=== PATIENT | male | born 1950 | race Caucasian/White ===

== ENCOUNTER 2016-10-28 15:04 | Inpatient (IN) | payer OTHER ==
[2016-10-28] MEDS ORDERED: CEFTRIAXONE 1 GM in DEXTROSE 5%-WATER - 50 ML IVPB ONE (16:16)
[2016-10-28] MEDS ORDERED: VANCOMYCIN 500 MG/100 ML PRE-DOCKED IVPB ONE (16:16)
[2016-10-28] MEDS ORDERED: LEVOFLOXACIN 500 MG IVPB 100 ML IVPB ONE ×3 (16:18→23:44)
--- NOTE | 2016-10-28 16:21 | PDOC ---
History of Present Illness - General History Source: Patient, Old Records Exam Limitations: No Limitations <Nadeem Chatman - Last Filed: 10/28/16 18:36> - General History Source: Patient, Old Records Exam Limitations: No Limitations - History of Present Illness Initial Comments: 10/28/16 16:35 The patient is a 66 year old male, with a significant past medical history of HTN, hyperlipidemia, diabetes, COPD (on home O2), CHF, CVA, peripheral vascular disease and obesity, who presents to the emergency department via EMS with increasing erythema and edema of the bilateral lower extremities over the past couple of days. Patient reports that his right leg is worse than the left. The patient additionally admits to some tactile low grade fevers at home but denies any chills, SOB or chest pain. Allergies: Amoxicillin Trihydrate, Potassium Clavulanate. Past Surgical History: Left Fem-Pop Bypass. Social History: Current everyday smoker. PCP: Dr. Liyah Louise <Jeny Carbajal - Last Filed: 10/28/16 21:34> - General Chief Complaint: Edema Stated Complaint: SWOLLEN LEGS/ PAIN Time Seen by Provider: 10/28/16 16:03 Past History - Past Medical History Anemia: No Cardiac Disorders: Yes (CAD) CVA: Yes (no deficit 5years ago.) COPD: Yes (o2 depend home 3l/mnt) Diabetes: Yes GI Disorders: Yes (OBESITY.) Disorders: No HTN: Yes Hypercholesterolemia: Yes Liver Disease: No Thyroid Disease: No - Surgical History Abdominal Surgery: No Appendectomy: No Cardiac Surgery: Yes (LEFT FEM-POP BYPASS) Cholecystectomy: No Lung Surgery: No Neurologic Surgery: No Orthopedic Surgery: No - Immunization History Immunization Up to Date: No - Psycho/Social/Smoking Cessation Hx Anxiety: No Suicidal Ideation: No Smoking Status: Yes Smoking History: Current every day smoker Have you smoked in the past 12 months: Yes Number of Cigarettes Smoked Daily: 5 If you are a former smoker, when did you quit?: 6 months Information on smoking cessation initiated: Yes 'Breaking Loose' booklet given: 10/28/16 Hx Alcohol Use: No Drug/Substance Use Hx: No Substance Use Type: None Hx Substance Use Treatment: No <Nadeem Chatman - Last Filed: 10/28/16 18:36> <Jeny Carbajal - Last Filed: 10/28/16 21:34> - Past Medical History Allergies/Adverse Reactions: Allergies Allergy/AdvReac Type Severity Reaction Status Date / Time amoxicillin trihydrate Allergy Unknown Verified 10/28/16 15:16 [From Augmentin] potassium clavulanate Allergy Unknown Verified 10/28/16 15:16 [From Augmentin] Home Medications: Ambulatory Orders Unobtainable [Unobtainable] 10/28/16 Review of Systems - Review of Systems Able to Perform ROS?: Yes Comments:: 10/28/16 16:35 GENERAL/CONSTITUTIONAL: +Fevers. No chills. No weakness. HEAD, EYES, EARS, NOSE AND THROAT: No change in vision. No ear pain or discharge. No sore throat. CARDIOVASCULAR: No chest pain or shortness of breath. RESPIRATORY: No cough, wheezing, or hemoptysis. GASTROINTESTINAL: No nausea, vomiting, diarrhea or constipation. GENITOURINARY: No dysuria, frequency, or change in urination. MUSCULOSKELETAL: No joint or muscle swelling or pain. No neck or back pain. SKIN: +Swelling and redness to lower extremities, bilaterally. NEUROLOGIC: No headache, vertigo, loss of consciousness, or change in strength/ sensation. ENDOCRINE: No increased thirst. No abnormal weight change. HEMATOLOGIC/LYMPHATIC: No anemia, easy bleeding, or history of blood clots. ALLERGIC/IMMUNOLOGIC: No hives or skin allergy. <Jeny Carbajal - Last Filed: 10/28/16 21:34> *Physical Exam - Vital Signs Last Vital Signs Temp Pulse Resp BP Pulse Ox 97.4 F L 72 20 134/62 98 10/28/16 15:07 10/28/16 15:07 10/28/16 15:07 10/28/16 15:07 10/28/16 16:00 <Nadeem Chatman - Last Filed: 10/28/16 18:36> - Vital Signs Last Vital Signs Temp Pulse Resp BP Pulse Ox 97.4 F L 72 20 134/62 98 10/28/16 15:07 10/28/16 15:07 10/28/16 15:07 10/28/16 15:07 10/28/16 16:00 - Physical Exam Comments: 10/28/16 16:54 GENERAL: Awake, alert, and fully oriented, in no acute distress. HEAD: No signs of trauma. EYES: PERRLA, EOMI, sclera anicteric, conjunctiva clear. ENT: Auricles normal inspection, hearing grossly normal, nares patent, oropharynx clear without exudates. Moist mucosa. NECK: Normal ROM, supple, no lymphadenopathy, JVD, or masses. LUNGS: Breath sounds equal, clear to auscultation bilaterally. No wheezes, and no crackles. HEART: Regular rate and rhythm, normal S1 and S2, no murmurs, rubs or gallops. ABDOMEN: Soft, nontender, normoactive bowel sounds. No guarding, no rebound. No masses. EXTREMITIES: 2+ pitting edema bilaterally. Normal range of motion. No clubbing or cyanosis. No cords. NEUROLOGICAL: Cranial nerves II through XII grossly intact. Normal speech, gait deferred. SKIN: Bilateral lower extremity erythema and tenderness, with some weeping. No induration. Worse on right, erythema on the right extends to the dorsum of the foot. Sensations intact. <Jeny Carbajal - Last Filed: 10/28/16 21:34> Heart Score/ECG Review #1 ECG reviewed & interpreted by me at: 17:00 10/28/16 17:01 NSR 77, left axis deviation, LBBB (negative scarbossa), QTC 491 msec <Nadeem Chatman - Last Filed: 10/28/16 18:36> ED Treatment Course - LABORATORY CBC & Chemistry Diagram: 10/28/16 16:54 10/28/16 16:54 - RADIOLOGY Radiology Studies Ordered: Category Date Time Status CHEST X-RAY PORTABLE* [RAD] Stat Radiology 10/28/16 16:15 Ordered <Nadeem Chatman - Last Filed: 10/28/16 18:36> - LABORATORY CBC & Chemistry Diagram: 10/28/16 16:54 10/28/16 16:54 <Jeny Carbajal - Last Filed: 10/28/16 21:34> Medical Decision Making - Medical Decision Making 10/28/16 16:20 A portion of this note was documented by scribe services under my direction. I have reviewed the details of the note, within reason, and agree with the documentation with the following case summary and management plan written by me. Patient treated in the ED. Nursing notes are reviewed and incorporated into the medical decision-making. Vital signs reviewed. Peripheral IV access obtained by the nurse, laboratory studies are drawn and sent, reviewed and interpreted by myself. Vital Signs Temp Pulse Resp BP Pulse Ox 97.4 F L 72 20 134/62 98 10/28/16 15:07 10/28/16 15:07 10/28/16 15:07 10/28/16 15:07 10/28/16 16:00 66 year old male with past medical history of diabetes, obesity, COPD on home O2 , sleep apnea, hypertension, hyperlipidemia, peripheral vascular disease, anemia , congestive heart failure presents to the emergency department for increasing erythema to the lower extremity is bilaterally, with right worse than left. His got increasingly more painful. Visiting nursing services had noted at home that the redness has worsened and sent the patient to the ER. He reports tactile low- grade temps at home but otherwise denies other symptoms. Denies any chest pain or shortness of breath. The patient's lower extremity extremely erythematous and tender to palpation. Some areas appear to be weeping but there is no obvious areas of ulcerations or abscesses. We'll initiate IV antibiotics and admit the patient to the hospital for further evaluation for cellulitis. 10/28/16 18:36 CBC, BMP 10/28/16 16:54 10/28/16 16:54 CMP Sodium 139 mmol/L (136-145) 10/28/16 16:54 Potassium 4.2 mmol/L (3.5-5.1) 10/28/16 16:54 Chloride 99 mmol/L (98-107) 10/28/16 16:54 Carbon Dioxide 34 mmol/L (21-32) H 10/28/16 16:54 Anion Gap 6 (8-16) L 10/28/16 16:54 BUN 24 mg/dL (7-18) H 10/28/16 16:54 Creatinine 1.4 mg/dL (0.7-1.3) H D 10/28/16 16:54 Creat Clearance w eGFR 50.86 (>60) 10/28/16 16:54 Random Glucose 190 mg/dL (74-106) H D 10/28/16 16:54 Lactic Acid 1.476 mmol/L (0.4-2.0) 10/28/16 16:54 Calcium 7.7 mg/dL (8.5-10.1) L 10/28/16 16:54 Total Bilirubin 0.3 mg/dL (0.2-1.0) 10/28/16 16:54 AST 9 U/L (15-37) L D 10/28/16 16:54 ALT 11 U/L (12-78) L D 10/28/16 16:54 Alkaline Phosphatase 60 U/L (45-117) 10/28/16 16:54 Creatine Kinase 62 IU/L (39-308) 10/28/16 16:54 Troponin I < 0.02 ng/ml (0.00-0.05) 10/28/16 16:54 Total Protein 6.9 g/dl (6.4-8.2) 10/28/16 16:54 Albumin 2.7 g/dl (3.4-5.0) L D 10/28/16 16:54 Urine Test Results Urine Color Yellow 10/28/16 16:54 Urine Appearance Clear 10/28/16 16:54 Urine pH 5.0 (5.0-8.0) 10/28/16 16:54 Ur Specific Tamms 1.016 (1.001-1.035) 10/28/16 16:54 Urine Protein Negative (NEGATIVE) 10/28/16 16:54 Urine Glucose (UA) Negative (NEGATIVE) 10/28/16 16:54 Urine Ketones Negative (NEGATIVE) 10/28/16 16:54 Urine Blood Negative (NEGATIVE) 10/28/16 16:54 Urine Nitrite Negative (NEGATIVE) 10/28/16 16:54 Urine Bilirubin Negative (NEGATIVE) 10/28/16 16:54 Ur Leukocyte Esterase Negative (NEGATIVE) 10/28/16 16:54 Labs reviewed. Acute renal insufficiency noted. Vanc and levaquin ordered. Duplex ordered and pending. Case discussed with Dr. Noemy Valle. She accepts the patient to med/surg admissoin. <Nadeem Chatman - Last Filed: 10/28/16 18:36> - Medical Decision Making 10/28/16 18:39 EXAM: RAD/CHEST X-RAY PORTABLE Reviewed By: Dr. Yusuf Simeon IMPRESSION: Limited examination, as described above without interval change. Called Dr. Noemy Valle at Office at 18:23. Referred to answering service. Dr. Valle returned call at 18:32, case discussed. <Jeny Carbajal - Last Filed: 10/28/16 21:34> *DC/Admit/Observation/Transfer - Discharge Dispostion Admit: Yes <Nadeem Chatman - Last Filed: 10/28/16 18:36> - Attestations Scribe Attestion: 10/28/16 16:22 Documentation prepared by Jeny Carbajal, acting as medical physiologist for Nadeem Chatman MD. <Jeny Carbajal - Last Filed: 10/28/16 21:34> Diagnosis at time of Disposition: THERESA (acute kidney injury), Cellulitis of both lower extremities - Referrals
[2016-10-28] MEDS ORDERED: VANCOMYCIN 1,000 MG in DEXTROSE 5%-WATER - 250 ML IVPB ONE (16:56)
[2016-10-28] MEDS ORDERED: VANCOMYCIN 1 GRAM (PRE-DOCKED) 250 ML IVPB ONE (16:59)
[2016-10-28 17:02] LABS: BASOPHIL 0.8 % (0-2.0); MCH 22.1 pg (25.7-33.7); MCHC 30.3 g/dl (32.0-35.9); MEAN CELL VOLUME 72.7 fl (80-96); MEAN PLT VOLUME 7.6 fl (7.5-11.1); NEUTROPHILS 81.5 % (42.8-82.8); PLATELET COUNT 329 K/MM3 (134-434); RDW 20.8 % (11.9-15.9); WHITE BLOOD COUNT 9.9 K/mm3 (4.0-10.0)
[2016-10-28 17:18] LABS: INR 1.23 (0.82-1.09); PROTHROMBIN TIME (PATIENT) 13.6 SEC (9.98-11.88)
[2016-10-28 17:20] LABS: ACTIVATED PTT 47.8 SECONDS (26.9-34.4)
[2016-10-28 17:37] LABS: URINE APPEARANCE CLEAR; URINE BILIRUBIN NEGATIVE (NEGATIVE); URINE BLOOD NEGATIVE (NEGATIVE); URINE COLOR YELLOW; URINE GLUCOSE (UA) NEGATIVE (NEGATIVE); URINE KETONE NEGATIVE (NEGATIVE); URINE LEUK ESTERASE NEGATIVE (NEGATIVE); URINE NITRITE NEGATIVE (NEGATIVE); URINE PROTEIN NEGATIVE (NEGATIVE); URINE UROBILINOGEN 2.0 E.U/dl E.U./dl (0.2-1.0)
[2016-10-28 17:58] LABS: ALBUMIN 2.7 g/dl (3.4-5.0); ANION GAP 6 (8-16); BILIRUBIN,TOTAL 0.3 mg/dL (0.2-1.0); CALCIUM 7.7 mg/dL (8.5-10.1); CO2 34 mmol/L (21-32); CREATININE 1.4 mg/dL (0.7-1.3); GLUCOSE,RANDOM 190 mg/dL (74-106); SGOT/AST 9 U/L (15-37); SGPT/ALT 11 U/L (12-78); TOT PROT 6.9 g/dl (6.4-8.2)
[2016-10-28 18:01] LABS: ALK PHOS 60 U/L (45-117); TROPONIN I < 0.02 ng/ml (0.00-0.05)
[2016-10-28 19:38] LABS: ANISOCYTOSIS 2+; MICROCYTOSIS 1+; PLATELET ESTIMATE ADEQUATE (NORMAL)
[2016-10-28 21:33] VITALS: BMI 34.7
[2016-10-28] MEDS ORDERED: ACETAMINOPHEN 325 MG TABLET (FP) PO PRN (23:45)
[2016-10-29] MEDS: INSULIN SLIDING SCALE (NOVOLOG) 1 VIAL SQ SCH ×4 (06:10→21:26)
[2016-10-29] MEDS ORDERED: ROSUVASTATIN CA 10 MG TABLET (FP) ONE (09:01)
[2016-10-29] MEDS: HEPARIN NA (PORCINE) 5,000 UNITS/ML 1ML VIAL SQ SCH ×2 (09:13→21:17)
[2016-10-29] MEDS: LACTOBACILLUS ACIDOPHILUS 1 EACH TAB (FP) PO SCH (09:13)
[2016-10-29] MEDS: CITALOPRAM HYDROBROMIDE 20 MG TABLET (FP) PO SCH (09:14)
[2016-10-29] MEDS: CLOPIDOGREL BISULFATE 75 MG TABLET (FP) PO SCH (09:14)
[2016-10-29] MEDS: ASPIRIN COATED 81 MG TABLET.EC PO SCH (09:14)
[2016-10-29] MEDS: CYANOCOBALAMIN (VITAMIN B-12) 100 MCG TABLET PO SCH (09:14)
[2016-10-29] MEDS: ROSUVASTATIN CA 20 MG TABLET (FP) PO SCH (09:15)
[2016-10-29] MEDS ORDERED: LEVOFLOXACIN 500 MG IVPB 100 ML IVPB ONE (10:00)
[2016-10-29] MEDS ORDERED: SILVER SULFADIAZINE 1% TOP CREAM 400 GM JAR TP SCH (10:00)
[2016-10-29] MEDS ORDERED: VANCOMYCIN 1 GRAM (PRE-DOCKED) 250 ML IVPB SCH (10:00)
[2016-10-29] MEDS ORDERED: PT OWN MED DRAWER 7, Y5N ONE ×4 (10:10→21:06)
--- NOTE | 2016-10-29 10:44 | CONSULT ---
Consultation: REQUESTING PROVIDER:Vascular surgery-Dr. Cordon CONSULT REQUEST: We have been asked to surgically evaluate this patient for b/l lower ext cellulitis. HISTORY OF PRESENT ILLNESS:The patient is a 66 yo male, known to the surgical service for his chronic b/l lower extremity wounds and cellulitis. He has a history of DM, HTN, PVD and chronic swelling/cellulitis to his lower ext. He came to the Er for pain in his b/l lower ext worse on the right than left. PMHX:COPD, DM, HTN, cellulitis to LE PSHX: right calf hematoma evacuation 08/06, left fem-popliteal bypass REVIEW OF SYSTEMS: CONSTITUTIONAL: present: fever, chills. CARDIOVASCULAR: Absent: chest pain, palpitations RESPIRATORY: Absent: cough, shortness of breath Skin: redness to RLE PHYSICAL EXAMINATION Vital Signs Temperature 98.7 F 10/29/16 06:00 Pulse Rate 84 10/29/16 06:00 Respiratory Rate 22 10/29/16 06:00 Blood Pressure 142/73 10/29/16 06:00 O2 Sat by Pulse Oximetry (%) 93 L 10/29/16 00:41 GENERAL: Awake, alert, and fully oriented, in no acute distress. HEAD: Normal with no signs of trauma. EYES: Pupils equal, round and reactive to light, sclera anicteric, conjunctiva clear. NECK: Normal range of motion, supple without lymphadenopathy, JVD, or masses. LUNGS: Breath sounds equal, clear to auscultation bilaterally. No wheezes, and no crackles. No accessory muscle use. HEART: Regular rate and rhythm, normal S1 and S2 without murmur, rub or gallop. UPPER EXTREMITIES: 2+ pulses, warm, well-perfused. No cyanosis. Cap refill <2 seconds. No peripheral edema. LOWER EXTREMITIES: warm, well-perfused. No calf tenderness. RIght foot with cellulitis/swollen skin remains intact without ulcers. A large callous is noted to the plantar surface. Dry scaly/flaking skin. Left leg warm and perfused. no swelling minimal erythema, dry/scaly flaking skin, no ulcers. CBC, BMP 10/29/16 10:45 10/29/16 10:45 LABS: Laboratory Results - last 24 hr 10/29/16 05:36 POC Glucometer 127 DVT-no evidence of DVT in b/l LE Problem List - Problems (1) Cellulitis of both lower extremities Assessment/Plan: Right worse than left, local wound care ordered. Continue with silvadene to RLE and left leg xeroform. Apply kerlix and DANE wraps from toe to knee b/l Pt on Maxipime as per ID D/w Dr. Cordon, will continue with local wound care and IV abx for LE cellulitis Surgery to follow while in hospital and then will resume outpt therapy upon discharge in the wound clinic. Code(s): L03.115 - CELLULITIS OF RIGHT LOWER LIMB L03.116 - CELLULITIS OF LEFT LOWER LIMB Visit type - Case Type Case Type: ED Admission - Emergency Emergency Visit: Yes ED Registration Date: 10/28/16 Care time: The patient presented to the Emergency Department on the above date and was hospitalized for further evaluation of their emergent condition. - New patient This patient is new to me today: No - Critical Care Critical Care patient: No
[2016-10-29] MEDS: FENOFIBRIC ACID 45 MG CAP PO SCH (11:07)
[2016-10-29] MEDS: BUDESONIDE/FORMETEROL FUMARATE 160/4.5 mcg INHALER IH SCH ×2 (11:07→21:17)
[2016-10-29] MEDS: ACLIDINIUM BROMIDE 400 MCG/INH AERO.POWD IH SCH ×2 (11:08→21:16)
[2016-10-29] MEDS: SILVER SULFADIAZINE 1% TOP CREAM 50 GM JAR TP SCH (11:17)
[2016-10-29 11:19] LABS: BASOPHIL 0.8 % (0-2.0); EOSINOPHIL 7.8 % (0-4.5); MCH 22.4 pg (25.7-33.7); MCHC 30.8 g/dl (32.0-35.9); MEAN CELL VOLUME 72.7 fl (80-96); MEAN PLT VOLUME 7.6 fl (7.5-11.1); NEUTROPHILS 79.4 % (42.8-82.8); PLATELET COUNT 282 K/MM3 (134-434); RDW 21.1 % (11.9-15.9); WHITE BLOOD COUNT 8.2 K/mm3 (4.0-10.0)
[2016-10-29 11:35] LABS: ALBUMIN 2.6 g/dl (3.4-5.0); CALCIUM 8.4 mg/dL (8.5-10.1)
[2016-10-29 11:38] LABS: BILIRUBIN,TOTAL 0.4 mg/dL (0.2-1.0); CREATININE 1.3 mg/dL (0.7-1.3); TOT PROT 6.5 g/dl (6.4-8.2)
--- NOTE | 2016-10-29 12:41 | PN ---
Progress Note (short form) - Note Progress Note: ID consult dictated imp/reccd cellulitis right greater then left venous stasis pen allergy (tolerates cephalsoporins) copd/home oxygen cefepime for now, po levaquin when ready for discharge
[2016-10-29] MEDS ORDERED: CEFEPIME HCL 1 GM VIAL (RESTRICTED TO ID) IVPB SCH (12:45)
--- NOTE | 2016-10-29 12:55 | HP ---
[id number] Chief Complaint: Legs pain History of Present Illness: Pt. came to ER with worsening leg edema and pain- at rest-, right more than left ; pt also was c/o subjective fever. Pt was admitted for IV abtx. 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 leg cellulitis) Endocrine: Yes: Diabetes Mellitus Dermatology: Yes: Cellulitis (in LE), Other (R leg ulcer) - Past Surgical History Past Surgical History: Yes: Stent - Smoking History Smoking history: Current every day smoker Have you smoked in the past 12 months: Yes Aproximately how many cigarettes per day: 5 If you are a former smoker, when did you quit?: 6 months - Alcohol/Substance Use Hx Alcohol Use: No History of Substance Use: reports: None - Social History ADL: Independent Occupation: worked for a [employer] History of Recent Travel: No Home Medications - Allergies Allergies/Adverse Reactions: Allergies Allergy/AdvReac Type Severity Reaction Status Date / Time amoxicillin trihydrate Allergy Unknown Verified 10/28/16 15:16 [From Augmentin] potassium clavulanate Allergy Unknown Verified 10/28/16 15:16 [From Augmentin] - Home Medications Home Medications: Ambulatory Orders Albuterol 0.083% Nebulizer [place] [Ventolin 0.083%] 1 neb NEB Q4H PRN 10/29/16 Aspirin Coated [Ecotrin -] 81 mg PO DAILY 10/29/16 Budesonide/Formeterol Fumarate [SYMBICORT 160/4.5mcg -] 2 inh PO BID 10/29/16 Calcium Carbonate/Vitamin D3 [Oyster Shell Calcium-Vit D Tab] 1 each PO DAILY Citalopram Hydrobromide [Celexa -] 20 mg PO DAILY 10/29/16 Clopidogrel Bisulfate [Plavix -] 75 mg PO DAILY 10/29/16 Cyanocobalamin [Vitamin B12 -] 100 mcg PO DAILY 10/29/16 Fenofibric Acid [Trilipix -] 45 mg PO DAILY 10/29/16 Insulin (LOG) Aspart [NovoLOG -] 0 units SQ QID 10/29/16 Insulin (Levemir) [Levemir Flexpen -] 30 units SQ ACDIN 10/29/16 Insulin Detemir [Levemir Flextouch] 35 unit SQ AM 10/29/16 Lactobacillus Acidophilus [Bacid -] 1 each PO DAILY 10/29/16 Rosuvastatin [Crestor -] 20 mg PO DAILY 10/29/16 Silver Sulfadiazine 1% Top Cr [Silvadene -] 1 applic TP ASDIR 10/29/16 Tiotropium [place] [Spiriva] 1 inh PO DAILY 10/29/16 Family Disease History - Family Disease History Family Disease History: Diabetes: Daughter Review of Systems - Review of Systems Constitutional: reports: Fever. denies: Chills, Night Sweats Eyes: denies: Blurred Vision, Double Vision HENT: denies: Ear Discharge, Ear Pain, Nasal Congestion, Throat Pain Neck: denies: Pain on Movement, Stiffness Cardiovascular: denies: Chest Pain, Edema, Palpitations Respiratory: reports: Cough, Exercise Intolerance, Other (tolerating BIPAP all the time the whole night). denies: Hemoptysis Gastrointestinal: denies: Abdominal Pain, Diarrhea, Nausea, Vomiting Genitourinary: denies: Burning, Discharge, Dysuria Musculoskeletal: reports: Extremity Pain (leg pain, at rest now). denies: Back Pain, Joint Pain, Joint Swelling, Muscle Cramps Integumentary: reports: Lesions (Skin breaks over the legs.) Neurological: denies: Change in LOC, Confusion, Dizziness, Tremors Endocrine: denies: Excessive Sweating, Intolerance to Cold Psychiatric: denies: Anxiety, Depression Physical Examination Vital Signs: Vital Signs Temperature 98.2 F 10/29/16 10:00 Pulse Rate 84 10/29/16 10:00 Respiratory Rate 18 10/29/16 10:00 Blood Pressure 130/68 10/29/16 10:00 O2 Sat by Pulse Oximetry (%) 93 L 10/29/16 09:40 Constitutional: Yes: Other (restless secondary to leag pain) Eyes: Yes: Conjunctiva Clear, EOM Intact, PERRL HENT: Yes: Normocephalic. No: Epistaxis, Rhinnorhea Neck: Yes: Trachea Midline. No: Lymphadenopathy Cardiovascular: Yes: Regular Rate and Rhythm, S1, S2 Respiratory: Yes: Regular, Rhonchi (scattered, minimal), Other (coarse BS bilat) Gastrointestinal: Yes: Normal Bowel Sounds, Soft, Abdomen, Obese ...Rectal Exam: Yes: Deferred Renal/: No: CVA Tenderness - Left, CVA Tenderness - Right Musculoskeletal: No: Back Pain Extremities: No: Cold, Cool Edema: LLE: 1+, RLE: 1+ Integumentary: Yes: Venous Stasis Changes, Other (R wrist IV site infiltrated, not painful. Bilat LE with skin scratches/ lacerations. Leg with swelleling, redness, calor, right more than left; both tender to palpation, pressure) Neurological: Yes: Alert, Oriented, Cran Nerves II-XII Intact, Other (motor is symmetric inn LE) Psychiatric: Yes: Alert, Oriented Labs: CBC, BMP 10/29/16 10:45 10/29/16 10:45 Imaging - Results Chest X-ray: Report Reviewed Ultrasound: Report Reviewed Problem List - Problems (1) Cellulitis of both lower extremities Assessment/Plan: IV abtx ID consult. Vasc SX consult. Code(s): L03.115 - CELLULITIS OF RIGHT LOWER LIMB L03.116 - CELLULITIS OF LEFT LOWER LIMB (2) COPD (chronic obstructive pulmonary disease) Assessment/Plan: Cont BIPAP and O2 supplementation Pulmaonary consult for BIPAP settings evaluation. Code(s): J44.9 - CHRONIC OBSTRUCTIVE PULMONARY DISEASE, UNSPECIFIED Qualifiers : COPD type: COPD with acute exacerbation Qualified Code(s): J44.1 - Chronic obstructive pulmonary disease with (acute) exacerbation (3) PVD (peripheral vascular disease) Code(s): I73.9 - PERIPHERAL VASCULAR DISEASE, UNSPECIFIED (4) Diabetes Code(s): E11.9 - TYPE 2 DIABETES MELLITUS WITHOUT COMPLICATIONS Qualifiers: Diabetes mellitus type: type 2 (5) Anemia Assessment/Plan: Chronic To f/u Code(s): D64.9 - ANEMIA, UNSPECIFIED (6) Obesity Code(s): E66.9 - OBESITY, UNSPECIFIED (7) CVA (cerebral vascular accident) Code(s): I63.9 - CEREBRAL INFARCTION, UNSPECIFIED (8) CAD (coronary artery disease) Code(s): I25.10 - ATHSCL HEART DISEASE OF [place] CORONARY ARTERY W/O ANG PCTRS (9) HTN (hypertension) Code(s): I10 - ESSENTIAL (PRIMARY) HYPERTENSION (10) Hyperlipidemia Code(s): E78.5 - HYPERLIPIDEMIA, UNSPECIFIED Assessment/Plan Cont meds AM labs PT eval
[2016-10-29] MEDS ORDERED: CEFEPIME 1 GM in DEXTROSE 5%-WATER - 100 ML IVPB SCH (13:30)
--- NOTE | 2016-10-29 13:44 | CONS ---
DATE OF CONSULTATION: DATE OF DICTATION: 10/29/2016 HISTORY OF PRESENT ILLNESS: This is a 66-year-old man with a history of chronic venostasis. I know him well from his prior admissions. He was last in the hospital from September 06 to with cellulitis of both his legs. At that time, he had had an Unna boot placed on his leg and when it was removed he had a lot of drainage and pain and erythema. His legs were red and swollen, and he was admitted. He now returns with acute onset, he says over the last 48 hours, of erythema of his legs, right greater than left. His breathing is at its baseline. He has COPD and uses home oxygen and CPAP at night. PAST MEDICAL HISTORY: Notable for atherosclerotic heart disease, hypertension, CVA, hyperlipidemia, COPD, on CPAP at night and O2 dependent, history of renal insufficiency, bilateral leg cellulitis and venostasis. SURGICAL HISTORY: Notable for a stent. ALLERGIES: He is allergic to AUGMENTIN but tolerates cephalosporins. MEDICATIONS: At home include Spiriva, Silvadene, Crestor, Bacid, insulin, Trilipix, vitamin B12, Plavix, Celexa, calcium with vitamin D, Symbicort, Ecotrin, and nebulizers p.r.n. FAMILY HISTORY: Noncontributory. SOCIAL HISTORY: Lives at home. REVIEW OF SYSTEMS: There are no fevers or chills. He notes erythema. There is no real drainage. PHYSICAL EXAMINATION: General: He is awake and alert. He is adamantly refusing to let me look at his legs, dressings of which were just changed by the surgical team. Vital Signs: His temperature is 98.2, he has had no fever since admission, blood pressure is 130/68, pulse of 84, respiratory rate is 18. HEENT: He is normocephalic. His eyes are anicteric. Neck: Supple. Lungs: Clear to auscultation. Heart: Regular rate and rhythm. Abdomen: Soft, nontender. Extremities: Both of his extremities are wrapped. Per the emergency room and the nurse, the right leg is worse than the left. They are apparently erythematous and tender, and there is some weeping erythema. There are no ulcerations or abscesses per the ER note. He received vancomycin and Levaquin in the ER. LABORATORY DATA: His labs are notable for a white count of 8.2, hemoglobin 10.6, platelets of 282. BUN is 18 and creatinine is 1.3. LFTs are normal. He has never had a culture at [facility] which is primarily where he comes for his care with MRSA. He has had multiple gram-negative and coag-negative Staphylococcus in the past. IMPRESSION: In summary, this is a 66-year-old man with chronic venostasis, bilateral cellulitis, right worse than left, PENICILLIN allergy but tolerates cephalosporins. RECOMMENDATIONS: I would suggest at this time that we treat him with cefepime IV with plans to switch to oral Levaquin when he is ready for discharge once he is improved. Further recommendations to follow based on his clinical course. HUNTER STRAUSS M.D. [id number]
[2016-10-29] MEDS: CEFEPIME 100 ML IVPB SCH ×2 (14:31→18:00)
[2016-10-29] MEDS: INSULIN DETEMIR 100 UNITS/ML MDV SQ SCH (18:00)
--- NOTE | 2016-10-29 23:41 | EKG ---
Test Reason : Blood Pressure : / mmHG Vent. Rate : 077 BPM Atrial Rate : 077 BPM P-R Int : 000 ms QRS Dur : 146 ms QT Int : 434 ms P-R-T Axes : 000 -36 098 degrees QTc Int : 491 ms POOR DATA QUALITY, INTERPRETATION MAY BE ADVERSELY AFFECTED SINUS RHYTHM WITH SINUS ARRHYTHMIA WITH 1ST DEGREE A-V BLOCK LEFT AXIS DEVIATION LEFT BUNDLE BRANCH BLOCK ABNORMAL ECG WHEN COMPARED WITH ECG OF 06-SEP-2016 14:34, SINUS RHYTHM HAS REPLACED ATRIAL FIBRILLATION QRS AXIS SHIFTED LEFT Confirmed by OZZIE SOLIS, ARACELIS ([id number]) on 10/29/2016 11:41:17 PM Referred By: Confirmed By:ARACELIS HORNE MD
[2016-10-30] MEDS: CEFEPIME 100 ML IVPB SCH ×3 (01:08→17:11)
[2016-10-30] MEDS: INSULIN SLIDING SCALE (NOVOLOG) 1 VIAL SQ SCH ×4 (06:11→22:28)
[2016-10-30] MEDS: INSULIN DETEMIR 100 UNITS/ML MDV SQ SCH ×2 (06:53→17:11)
[2016-10-30 08:30] LABS: MCH 22.7 pg (25.7-33.7); MCHC 31.5 g/dl (32.0-35.9); MEAN CELL VOLUME 71.9 fl (80-96); MEAN PLT VOLUME 7.4 fl (7.5-11.1); PLATELET COUNT 312 K/MM3 (134-434); RDW 20.6 % (11.9-15.9); WHITE BLOOD COUNT 7.3 K/mm3 (4.0-10.0)
[2016-10-30 08:54] LABS: CALCIUM 8.8 mg/dL (8.5-10.1); CREATININE 1.2 mg/dL (0.7-1.3)
[2016-10-30] MEDS ORDERED: ROSUVASTATIN CA 10 MG TABLET (FP) ONE (09:02)
[2016-10-30] MEDS: ROSUVASTATIN CA 20 MG TABLET (FP) PO SCH (09:21)
[2016-10-30] MEDS: CLOPIDOGREL BISULFATE 75 MG TABLET (FP) PO SCH (09:21)
[2016-10-30] MEDS: CYANOCOBALAMIN (VITAMIN B-12) 100 MCG TABLET PO SCH (09:21)
[2016-10-30] MEDS: CITALOPRAM HYDROBROMIDE 20 MG TABLET (FP) PO SCH (09:21)
[2016-10-30] MEDS: SILVER SULFADIAZINE 1% TOP CREAM 50 GM JAR TP SCH (09:22)
[2016-10-30] MEDS: LACTOBACILLUS ACIDOPHILUS 1 EACH TAB (FP) PO SCH (09:22)
[2016-10-30] MEDS: ASPIRIN COATED 81 MG TABLET.EC PO SCH (09:22)
[2016-10-30] MEDS: HEPARIN NA (PORCINE) 5,000 UNITS/ML 1ML VIAL SQ SCH ×2 (09:22→22:26)
[2016-10-30] MEDS: BUDESONIDE/FORMETEROL FUMARATE 160/4.5 mcg INHALER IH SCH ×2 (09:23→22:27)
[2016-10-30] MEDS: FENOFIBRIC ACID 45 MG CAP PO SCH (09:23)
[2016-10-30] MEDS: ACLIDINIUM BROMIDE 400 MCG/INH AERO.POWD IH SCH ×2 (09:23→22:27)
[2016-10-30] MEDS ORDERED: INSULIN (NOVOLOG) ASPART 100 UNITS/ML 10ML VIAL ONE (12:06)
--- NOTE | 2016-10-30 14:26 | PN ---
Progress Note, Physician Chief Complaint: in bed nad afebrile; tests and meds d/w pt - Current Medication List Current Medications: Active Medications Acetaminophen (Tylenol -) 650 mg PO Q6H PRN PRN Reason: FEVER OR PAIN Aclidinium [place] (Tudorza -) 1 puff IH BID [facility] Last Admin: 10/30/16 09:23 Dose: 1 puff Albuterol Sulfate (Ventolin 0.083% Nebulizer Soln -) 1 amp NEB Q6H PRN PRN Reason: SHORT OF BREATH/WHEEZING Aspirin (Ecotrin -) 81 mg PO DAILY [facility] Last Admin: 10/30/16 09:22 Dose: 81 mg Budesonide/Formoterol Fumarate (Symbicort 160/4.5mcg -) 2 puff IH BID [facility] Last Admin: 10/30/16 09:23 Dose: 2 puff Citalopram Hydrobromide (Celexa -) 20 mg PO DAILY [facility] Last Admin: 10/30/16 09:21 Dose: 20 mg Clopidogrel Bisulfate (Plavix -) 75 mg PO DAILY [facility] Last Admin: 10/30/16 09:21 Dose: 75 mg Cyanocobalamin (Vitamin B12 -) 100 mcg PO DAILY [facility] Last Admin: 10/30/16 09:21 Dose: 100 mcg Fenofibric Acid (Trilipix -) 45 mg PO DAILY [facility] Last Admin: 10/30/16 09:23 Dose: 45 mg Heparin Sodium (Porcine) (Heparin -) 5,000 unit SQ BID [facility] Last Admin: 10/30/16 09:22 Dose: 5,000 unit Vancomycin HCl (Vancomycin (Pre-Docked)) 250 mls @ 250 mls/hr IVPB DAILY [facility] Cefepime HCl (Maxipime 1gm Ivpb Pre-Docked) 100 mls @ 200 mls/hr IVPB Q8H-IV [facility] Last Admin: 10/30/16 09:24 Dose: 200 mls/hr Insulin Aspart (Novolog Vial Sliding Scale -) 1 vial SQ ACHS [facility] PRN Reason: Protocol Last Admin: 10/30/16 12:11 Dose: 4 units Insulin Detemir (Levemir Vial) 25 units SQ ACDIN [facility] Last Admin: 10/29/16 18:00 Dose: 25 units Insulin Detemir (Levemir Vial) 30 units SQ AM [facility] Last Admin: 10/30/16 06:53 Dose: 30 units Lactobacillus Acidophilus (Bacid -) 1 tab PO DAILY [facility] Last Admin: 10/30/16 09:22 Dose: 1 tab Rosuvastatin Calcium (Crestor -) 20 mg PO DAILY [facility] Last Admin: 10/30/16 09:21 Dose: 20 mg Silver Sulfadiazine (Silvadene -) 1 applic TP DAILY [facility] Last Admin: 10/30/16 09:22 Dose: 1 applic - Objective Vital Signs: Vital Signs Temperature 97.8 F 10/30/16 10:00 Pulse Rate 71 10/30/16 10:00 Respiratory Rate 20 10/30/16 10:00 Blood Pressure 121/62 10/30/16 10:00 O2 Sat by Pulse Oximetry (%) 94 L 10/30/16 09:00 Constitutional: Yes: No Distress, Calm Eyes: Yes: Conjunctiva Clear HENT: Yes: Atraumatic Neck: Yes: Supple Cardiovascular: Yes: Regular Rate and Rhythm Respiratory: Yes: CTA Bilaterally Gastrointestinal: Yes: Soft Genitourinary: No: CVA Tenderness - Left, CVA Tenderness - Right Musculoskeletal: No: Joint Stiffness, Joint Swelling Extremities: No: Cold, Cool Edema: Yes (legs) Peripheral Pulses WNL: Yes Integumentary: Yes: Venous Stasis Changes Wound/Incision: Yes: Dressing Dry and Intact (legs) Neurological: Yes: WNL, Alert, Oriented ...Motor Strength: WNL Psychiatric: Yes: WNL, Alert, Oriented. No: Agitated, Suicidal Ideation Labs: CBC, BMP 10/30/16 07:30 10/30/16 07:30 INR, PTT INR 1.23 (0.82-1.09) H 10/28/16 16:54 - ....Imaging Other: Report Reviewed Assessment/Plan 66 yo male with chronic b/l lower extremity wounds and cellulitis. He has a history of DM, HTN, PVD and chronic swelling/cellulitis to his lower ext. PMHX:COPD, DM, HTN, cellulitis to LE PSHX: right calf hematoma evacuation 08/06, left fem-popliteal bypass IV ATB per ID vascular sx f/u f/u labs wound care d/w pt falls pfx, DVT pfx BIPAP prn
--- NOTE | 2016-10-30 14:50 | PN ---
Progress Note (short form) - Note Progress Note: PULMONARY CONSULTATION DICTATED 10/30/16 IMP ADVANCED COPD WITH CHRONIC HYPOXEMIC/HYPERCAPNEIC RESPIRATORY FAILURE BILATERAL LOWER EXT CELLULITIS PVD MARTIN ON CPAP H/O CVA ASHD HTN DM SMOKER PLAN INHALED BRONCHODILATORS SUPPLEMENTAL O2 BIPAP AT NIGHT AND PRN ANTIBIOTICS PER ID WOUND CARE DR GREEN Problem List - Problems (1) CAD (coronary artery disease) Code(s): I25.10 - ATHSCL HEART DISEASE OF [place] CORONARY ARTERY W/O ANG PCTRS (2) Cellulitis of both lower extremities Code(s): L03.115 - CELLULITIS OF RIGHT LOWER LIMB L03.116 - CELLULITIS OF LEFT LOWER LIMB (3) HTN (hypertension) Code(s): I10 - ESSENTIAL (PRIMARY) HYPERTENSION (4) Hyperlipidemia Code(s): E78.5 - HYPERLIPIDEMIA, UNSPECIFIED (5) Obesity Code(s): E66.9 - OBESITY, UNSPECIFIED (6) COPD (chronic obstructive pulmonary disease) Code(s): J44.9 - CHRONIC OBSTRUCTIVE PULMONARY DISEASE, UNSPECIFIED Qualifiers : COPD type: COPD with acute exacerbation Qualified Code(s): J44.1 - Chronic obstructive pulmonary disease with (acute) exacerbation (7) Hypoxia Code(s): R09.02 - HYPOXEMIA (8) PVD (peripheral vascular disease) Code(s): I73.9 - PERIPHERAL VASCULAR DISEASE, UNSPECIFIED (9) Sleep apnea Code(s): G47.30 - SLEEP APNEA, UNSPECIFIED (10) Chronic respiratory failure with hypoxia and hypercapnia Code(s): J96.21 - ACUTE AND CHRONIC RESPIRATORY FAILURE WITH HYPOXIA J96.22 - ACUTE AND CHRONIC RESPIRATORY FAILURE WITH HYPERCAPNIA
--- NOTE | 2016-10-30 21:43 | CONS ---
DATE OF CONSULTATION: 10/30/2016 PULMONARY CONSULTATION REFERRING PHYSICIAN: Noemy Valle M.D. HISTORY OF PRESENT ILLNESS: The patient is a 66-year-old white male known to me from previous hospitalization as well as following extensive past medical history including advanced COPD on home O2, longstanding history of tobacco use, still smokes a few cigarettes daily, diabetes mellitus, hypertension, hyperlipidemia, obstructive sleep apnea maintained on BiPAP, diabetes, history of CVA 5 years ago, ASHD, admitted to [facility] on October 28 secondary to increase in erythema, edema to bilateral lower extremities. Patient unsure whether or not he had fevers. He denied any chills, nausea, vomiting, diaphoresis. He was admitted upon admission with acute cellulitis. He was evaluated by Dr. Norman from infectious disease and placed on broad spectrum antibiotics. Patient also has history of COPD, maintained on O2 and inhaled bronchodilators. He denies any chest pain, denies any hemoptysis. He does complain about shortness of breath with exertion. Denies any chronic cough. There is no weight loss or night sweats. PAST MEDICAL HISTORY: Includes advanced COPD on O2, obstructive sleep apnea, ASHD, hypertension, CVA, hyperlipidemia, chronic kidney disease, bilateral lower extremity cellulitis and venous stasis. CURRENT MEDICATIONS: Include Symbicort, Tylenol, Maxipen, vancomycin, heparin, Celexa, Bacid, Jones, albuterol, Crestor, Novolog, Levemir, Silvadene, Ecotrin, Plavix, vitamin B12. REVIEW OF SYSTEMS: No orthopnea. No PND. Positive dyspnea on exertion. Positive lower extremity edema. Positive mild low-grade fever. No chest pain. No palpitations. No hemoptysis. PHYSICAL EXAMINATION: General: The patient is a well-developed, well-nourished male, awake, alert, in no acute distress. Vital signs: He is currently afebrile. Blood pressure is 121/62, respiratory rate 20, and O2 saturation is 94% on 2 L. HEENT: Head is normocephalic, atraumatic. Neck: Supple. Heart: Regular. S1, S2. Chest: Diminished breath sounds bilaterally. Abdomen: Soft. Bowel sounds positive. Extremities: Bilateral lower extremities are wrapped. LABORATORY: WBC is 7.3, hemoglobin 10.2, hematocrit 32.5, platelet count 312, 000. INR is 1.23. Blood gas not performed. BUN is 16, creatinine 1.2. Chest x-ray reveals no infiltrates and no effusions. IMPRESSION: 1. Advanced chronic obstructive pulmonary disease on oxygen, currently stable. 2. Bilateral lower extremity cellulitis. 3. Obstructive sleep apnea syndrome on CPAP. 4. Hypertension. 5. Atherosclerotic heart disease. 6. Status post cerebrovascular accident. 7. Diabetes. PLAN: Continue inhaled bronchodilator, supplemental O2, inhaled bronchodilators as per IV antibiotics as per infectious disease, continue BiPAP at night, local wound care. LG GREEN M.D. [id number] MTDD
[2016-10-30] MEDS ORDERED: PT OWN MED DRAWER 7, Y5N ONE (21:50)
[2016-10-31] MEDS: CEFEPIME 100 ML IVPB SCH ×3 (02:16→17:11)
[2016-10-31] MEDS: INSULIN SLIDING SCALE (NOVOLOG) 1 VIAL SQ SCH ×4 (06:24→21:40)
[2016-10-31] MEDS ORDERED: PT OWN MED DRAWER 7, Y5N ONE ×2 (06:25→09:36)
[2016-10-31 08:26] LABS: BASOPHIL 0.9 % (0-2.0); EOSINOPHIL 10.3 % (0-4.5); MCH 22.3 pg (25.7-33.7); MCHC 31.2 g/dl (32.0-35.9); MEAN CELL VOLUME 71.5 fl (80-96); MEAN PLT VOLUME 7.5 fl (7.5-11.1); NEUTROPHILS 73.4 % (42.8-82.8); PLATELET COUNT 332 K/MM3 (134-434); WHITE BLOOD COUNT 9.3 K/mm3 (4.0-10.0)
[2016-10-31 08:43] LABS: CALCIUM 8.5 mg/dL (8.5-10.1); CREATININE 1.2 mg/dL (0.7-1.3)
[2016-10-31] MEDS ORDERED: ROSUVASTATIN CA 10 MG TABLET (FP) ONE (09:35)
[2016-10-31] MEDS: CYANOCOBALAMIN (VITAMIN B-12) 100 MCG TABLET PO SCH (09:44)
[2016-10-31] MEDS: LACTOBACILLUS ACIDOPHILUS 1 EACH TAB (FP) PO SCH (09:44)
[2016-10-31] MEDS: CITALOPRAM HYDROBROMIDE 20 MG TABLET (FP) PO SCH (09:44)
[2016-10-31] MEDS: ASPIRIN COATED 81 MG TABLET.EC PO SCH (09:44)
[2016-10-31] MEDS: ROSUVASTATIN CA 20 MG TABLET (FP) PO SCH (09:44)
[2016-10-31] MEDS: FENOFIBRIC ACID 45 MG CAP PO SCH (09:45)
[2016-10-31] MEDS: ACLIDINIUM BROMIDE 400 MCG/INH AERO.POWD IH SCH ×2 (09:45→21:43)
[2016-10-31] MEDS: BUDESONIDE/FORMETEROL FUMARATE 160/4.5 mcg INHALER IH SCH ×2 (09:45→21:43)
[2016-10-31] MEDS: CLOPIDOGREL BISULFATE 75 MG TABLET (FP) PO SCH (09:45)
[2016-10-31] MEDS: SILVER SULFADIAZINE 1% TOP CREAM 50 GM JAR TP SCH (09:45)
[2016-10-31] MEDS: HEPARIN NA (PORCINE) 5,000 UNITS/ML 1ML VIAL SQ SCH ×2 (09:45→21:42)
[2016-10-31] MEDS ORDERED: INSULIN (NOVOLOG) ASPART 100 UNITS/ML 10ML VIAL ONE ×2 (10:44→16:57)
[2016-10-31] MEDS: ALBUTEROL SO4 0.083% IH SOL 2.5 MG/3 ML VIAL.NEB. NEB PRN (11:15)
--- NOTE | 2016-10-31 15:28 | PN ---
Progress Note (short form) - Note Progress Note: doing well no sob laying flat he had his dressing changed and refuses to let me see his legs Vital Signs Period Temp Pulse Resp BP Sys/Mullen Pulse Ox Last 24 Hr 97.6 F-99.3 F 76-84 17-20 147-153/68-87 94-94 cor-rrr lungs- clear abd soft,nt dressings intact CBC, BMP 10/31/16 07:00 10/31/16 07:00 Microbiology 10/28/16 16:54 Blood - Peripheral Venous Blood Culture - Preliminary NO GROWTH OBTAINED AFTER 48 HOURS, INCUBATION TO CONTINUE FOR 3 DAYS. 10/28/16 16:45 Blood - Peripheral Venous Blood Culture - Preliminary NO GROWTH OBTAINED AFTER 48 HOURS, INCUBATION TO CONTINUE FOR 3 DAYS. 10/28/16 16:54 Urine - Urine Clean Catch Urine Culture - Final NO GROWTH OBTAINED a/p cellulitis venous stasis copd/osas pen allergy continue cefepime for now, will ask nurse to call me tomorrow
--- NOTE | 2016-10-31 16:36 | PN ---
Progress Note, Physician History of Present Illness: Pt. w/o fever, chills, SOB, CP, palp, abd pain. - Current Medication List Current Medications: Active Medications Acetaminophen (Tylenol -) 650 mg PO Q6H PRN PRN Reason: FEVER OR PAIN Aclidinium [place] (Tudorza -) 1 puff IH BID [facility] Last Admin: 10/31/16 09:45 Dose: 1 puff Albuterol Sulfate (Ventolin 0.083% Nebulizer Soln -) 1 amp NEB Q6H PRN PRN Reason: SHORT OF BREATH/WHEEZING Last Admin: 10/31/16 11:15 Dose: 1 amp Aspirin (Ecotrin -) 81 mg PO DAILY [facility] Last Admin: 10/31/16 09:44 Dose: 81 mg Budesonide/Formoterol Fumarate (Symbicort 160/4.5mcg -) 2 puff IH BID [facility] Last Admin: 10/31/16 09:45 Dose: 2 puff Citalopram Hydrobromide (Celexa -) 20 mg PO DAILY [facility] Last Admin: 10/31/16 09:44 Dose: 20 mg Clopidogrel Bisulfate (Plavix -) 75 mg PO DAILY [facility] Last Admin: 10/31/16 09:45 Dose: 75 mg Cyanocobalamin (Vitamin B12 -) 100 mcg PO DAILY [facility] Last Admin: 10/31/16 09:44 Dose: 100 mcg Fenofibric Acid (Trilipix -) 45 mg PO DAILY [facility] Last Admin: 10/31/16 09:45 Dose: 45 mg Heparin Sodium (Porcine) (Heparin -) 5,000 unit SQ BID [facility] Last Admin: 10/31/16 09:45 Dose: 5,000 unit Vancomycin HCl (Vancomycin (Pre-Docked)) 250 mls @ 250 mls/hr IVPB DAILY [facility] Cefepime HCl (Maxipime 1gm Ivpb Pre-Docked) 100 mls @ 200 mls/hr IVPB Q8H-IV [facility] Last Admin: 10/31/16 09:45 Dose: 200 mls/hr Insulin Aspart (Novolog Vial Sliding Scale -) 1 vial SQ ACHS [facility] PRN Reason: Protocol Last Admin: 10/31/16 10:59 Dose: 2 units Insulin Detemir (Levemir Vial) 25 units SQ ACDIN [facility] Last Admin: 10/30/16 17:11 Dose: 25 units Insulin Detemir (Levemir Vial) 30 units SQ AM [facility] Last Admin: 10/30/16 06:53 Dose: 30 units Lactobacillus Acidophilus (Bacid -) 1 tab PO DAILY [facility] Last Admin: 10/31/16 09:44 Dose: 1 tab Rosuvastatin Calcium (Crestor -) 20 mg PO DAILY [facility] Last Admin: 10/31/16 09:44 Dose: 20 mg Silver Sulfadiazine (Silvadene -) 1 applic TP DAILY [facility] Last Admin: 10/31/16 09:45 Dose: 1 applic - Objective Vital Signs: Vital Signs Temperature 98.1 F 10/31/16 13:52 Pulse Rate 77 10/31/16 13:52 Respiratory Rate 17 10/31/16 13:52 Blood Pressure 147/84 10/31/16 13:52 O2 Sat by Pulse Oximetry (%) 94 L 10/31/16 11:40 Constitutional: Yes: No Distress, Calm Cardiovascular: Yes: Regular Rate and Rhythm, S1, S2 Respiratory: Yes: Regular, CTA Bilaterally, Rales Gastrointestinal: Yes: Normal Bowel Sounds, Soft, Abdomen, Obese Edema: No Integumentary: Yes: Other (refusing to have leg dressing removed for examination , secondary to pain) Neurological: Yes: Alert, Oriented Labs: CBC, BMP 10/31/16 07:00 10/31/16 07:00 INR, PTT INR 1.23 (0.82-1.09) H 10/28/16 16:54 Problem List - Problems (1) Cellulitis of both lower extremities Assessment/Plan: IV abtx ID consult appreciated. Vasc SX consult. Code(s): L03.115 - CELLULITIS OF RIGHT LOWER LIMB L03.116 - CELLULITIS OF LEFT LOWER LIMB (2) COPD (chronic obstructive pulmonary disease) Assessment/Plan: Cont BIPAP and O2 supplementation Pulmaonary consult appreciated. Pt. still smokes; today pt. went outside, in front of the hospital, to smoke; I made pt. aware that he shouldn't leave the floor w/o his nurse consent. I d/w pt the importance of stopping smoking, today. Pt. states that he knows about the risks associated with smoking( from his doctors, his doctor in law- Passenger [employer] Representative); pt agrees to start Nicotine patch. Code(s): J44.9 - CHRONIC OBSTRUCTIVE PULMONARY DISEASE, UNSPECIFIED Qualifiers : COPD type: COPD with acute exacerbation Qualified Code(s): J44.1 - Chronic obstructive pulmonary disease with (acute) exacerbation (3) PVD (peripheral vascular disease) Assessment/Plan: To f/u with Vascular Sx. Code(s): I73.9 - PERIPHERAL VASCULAR DISEASE, UNSPECIFIED (4) Diabetes Code(s): E11.9 - TYPE 2 DIABETES MELLITUS WITHOUT COMPLICATIONS Qualifiers: Diabetes mellitus type: type 2 (5) Anemia Assessment/Plan: Chronic To f/u H/H Code(s): D64.9 - ANEMIA, UNSPECIFIED (6) Obesity Code(s): E66.9 - OBESITY, UNSPECIFIED (7) CVA (cerebral vascular accident) Code(s): I63.9 - CEREBRAL INFARCTION, UNSPECIFIED (8) CAD (coronary artery disease) Code(s): I25.10 - ATHSCL HEART DISEASE OF [place] CORONARY ARTERY W/O ANG PCTRS (9) HTN (hypertension) Code(s): I10 - ESSENTIAL (PRIMARY) HYPERTENSION (10) Hyperlipidemia Code(s): E78.5 - HYPERLIPIDEMIA, UNSPECIFIED Assessment/Plan Cont meds AM labs
[2016-10-31] MEDS: NICOTINE 14 MG/24 HOURS TOPICAL PATCH TD SCH (17:11)
[2016-10-31] MEDS: INSULIN DETEMIR 100 UNITS/ML MDV SQ SCH (17:18)
[2016-11-01] MEDS: CEFEPIME 100 ML IVPB SCH ×3 (02:36→17:20)
[2016-11-01] MEDS: INSULIN SLIDING SCALE (NOVOLOG) 1 VIAL SQ SCH ×4 (06:06→21:56)
[2016-11-01] MEDS: INSULIN DETEMIR 100 UNITS/ML MDV SQ SCH ×2 (07:03→16:56)
[2016-11-01] MEDS ORDERED: ROSUVASTATIN CA 10 MG TABLET (FP) ONE (10:19)
[2016-11-01] MEDS ORDERED: PT OWN MED DRAWER 7, Y5N ONE (10:19)
--- NOTE | 2016-11-01 10:19 | PN ---
Progress Note, Physician History of Present Illness: Pt. w/o fever, chills, SOB, CP, palp, abd pain. Pt. with leg pain - Current Medication List Current Medications: Active Medications Acetaminophen (Tylenol -) 650 mg PO Q6H PRN PRN Reason: FEVER OR PAIN Aclidinium [place] (Tudorza -) 1 puff IH BID [facility] Last Admin: 10/31/16 21:43 Dose: 1 puff Albuterol Sulfate (Ventolin 0.083% Nebulizer Soln -) 1 amp NEB Q6H PRN PRN Reason: SHORT OF BREATH/WHEEZING Last Admin: 10/31/16 11:15 Dose: 1 amp Aspirin (Ecotrin -) 81 mg PO DAILY [facility] Last Admin: 10/31/16 09:44 Dose: 81 mg Budesonide/Formoterol Fumarate (Symbicort 160/4.5mcg -) 2 puff IH BID [facility] Last Admin: 10/31/16 21:43 Dose: 2 puff Citalopram Hydrobromide (Celexa -) 20 mg PO DAILY [facility] Last Admin: 10/31/16 09:44 Dose: 20 mg Clopidogrel Bisulfate (Plavix -) 75 mg PO DAILY [facility] Last Admin: 10/31/16 09:45 Dose: 75 mg Cyanocobalamin (Vitamin B12 -) 100 mcg PO DAILY [facility] Last Admin: 10/31/16 09:44 Dose: 100 mcg Fenofibric Acid (Trilipix -) 45 mg PO DAILY [facility] Last Admin: 10/31/16 09:45 Dose: 45 mg Heparin Sodium (Porcine) (Heparin -) 5,000 unit SQ BID [facility] Last Admin: 10/31/16 21:42 Dose: 5,000 unit Vancomycin HCl (Vancomycin (Pre-Docked)) 250 mls @ 250 mls/hr IVPB DAILY [facility] Cefepime HCl (Maxipime 1gm Ivpb Pre-Docked) 100 mls @ 200 mls/hr IVPB Q8H-IV [facility] Last Admin: 11/01/16 02:36 Dose: 200 mls/hr Insulin Aspart (Novolog Vial Sliding Scale -) 1 vial SQ ACHS [facility] PRN Reason: Protocol Last Admin: 11/01/16 06:06 Dose: Not Given Insulin Detemir (Levemir Vial) 25 units SQ ACDIN [facility] Last Admin: 10/31/16 17:18 Dose: 25 units Insulin Detemir (Levemir Vial) 30 units SQ AM [facility] Last Admin: 11/01/16 07:03 Dose: Not Given Lactobacillus Acidophilus (Bacid -) 1 tab PO DAILY [facility] Last Admin: 10/31/16 09:44 Dose: 1 tab Nicotine (Nicoderm Patch -) 14 mg TD DAILY [facility] Last Admin: 10/31/16 17:11 Dose: 14 mg Rosuvastatin Calcium (Crestor -) 20 mg PO DAILY [facility] Last Admin: 10/31/16 09:44 Dose: 20 mg Silver Sulfadiazine (Silvadene -) 1 applic TP DAILY [facility] Last Admin: 10/31/16 09:45 Dose: 1 applic - Objective Vital Signs: Vital Signs Temperature 97.8 F 11/01/16 06:49 Pulse Rate 66 11/01/16 06:49 Respiratory Rate 18 11/01/16 06:49 Blood Pressure 131/56 11/01/16 06:49 O2 Sat by Pulse Oximetry (%) 98 11/01/16 07:08 Constitutional: Yes: No Distress, Calm Respiratory: Yes: Regular, Rales (scattered), Rhonchi, Wheezes Gastrointestinal: Yes: Normal Bowel Sounds, Soft, Abdomen, Obese Edema: LLE: 1+, RLE: 1+ Integumentary: Yes: Rash (bilat.), Skin Tear Neurological: Yes: Alert, Oriented Labs: CBC, BMP 10/31/16 07:00 10/31/16 07:00 INR, PTT INR 1.23 (0.82-1.09) H 10/28/16 16:54 Problem List - Problems (1) Cellulitis of both lower extremities Assessment/Plan: IV abtx ID consult appreciated. Vasc SX consult. Code(s): L03.115 - CELLULITIS OF RIGHT LOWER LIMB L03.116 - CELLULITIS OF LEFT LOWER LIMB (2) COPD (chronic obstructive pulmonary disease) Assessment/Plan: Cont BIPAP and O2 supplementation Pulmonary consult appreciated. Pt. was made aware to havw O2 supplementation all the time Code(s): J44.9 - CHRONIC OBSTRUCTIVE PULMONARY DISEASE, UNSPECIFIED Qualifiers : COPD type: COPD with acute exacerbation Qualified Code(s): J44.1 - Chronic obstructive pulmonary disease with (acute) exacerbation (3) PVD (peripheral vascular disease) Assessment/Plan: To f/u with Vascular Sx. Code(s): I73.9 - PERIPHERAL VASCULAR DISEASE, UNSPECIFIED (4) Diabetes Code(s): E11.9 - TYPE 2 DIABETES MELLITUS WITHOUT COMPLICATIONS Qualifiers: Diabetes mellitus type: type 2 (5) Anemia Code(s): D64.9 - ANEMIA, UNSPECIFIED (6) Obesity Code(s): E66.9 - OBESITY, UNSPECIFIED (7) CVA (cerebral vascular accident) Code(s): I63.9 - CEREBRAL INFARCTION, UNSPECIFIED (8) CAD (coronary artery disease) Code(s): I25.10 - ATHSCL HEART DISEASE OF [place] CORONARY ARTERY W/O ANG PCTRS (9) HTN (hypertension) Code(s): I10 - ESSENTIAL (PRIMARY) HYPERTENSION (10) Hyperlipidemia Code(s): E78.5 - HYPERLIPIDEMIA, UNSPECIFIED Assessment/Plan Cont meds
[2016-11-01] MEDS ORDERED: INSULIN (NOVOLOG) ASPART 100 UNITS/ML 10ML VIAL ONE ×3 (10:20→21:53)
[2016-11-01] MEDS: LACTOBACILLUS ACIDOPHILUS 1 EACH TAB (FP) PO SCH (10:33)
[2016-11-01] MEDS: ASPIRIN COATED 81 MG TABLET.EC PO SCH (10:33)
[2016-11-01] MEDS: ROSUVASTATIN CA 20 MG TABLET (FP) PO SCH (10:33)
[2016-11-01] MEDS: FENOFIBRIC ACID 45 MG CAP PO SCH (10:33)
[2016-11-01] MEDS: CITALOPRAM HYDROBROMIDE 20 MG TABLET (FP) PO SCH (10:33)
[2016-11-01] MEDS: NICOTINE 14 MG/24 HOURS TOPICAL PATCH TD SCH (10:34)
[2016-11-01] MEDS: HEPARIN NA (PORCINE) 5,000 UNITS/ML 1ML VIAL SQ SCH ×2 (10:34→21:56)
[2016-11-01] MEDS: BUDESONIDE/FORMETEROL FUMARATE 160/4.5 mcg INHALER IH SCH ×2 (10:35→21:55)
[2016-11-01] MEDS: SILVER SULFADIAZINE 1% TOP CREAM 50 GM JAR TP SCH (10:35)
[2016-11-01] MEDS: CLOPIDOGREL BISULFATE 75 MG TABLET (FP) PO SCH (10:35)
[2016-11-01] MEDS: CYANOCOBALAMIN (VITAMIN B-12) 100 MCG TABLET PO SCH (10:36)
[2016-11-01] MEDS: ACLIDINIUM BROMIDE 400 MCG/INH AERO.POWD IH SCH ×2 (10:36→21:55)
--- NOTE | 2016-11-01 11:58 | PN ---
Progress Note (short form) - Note Progress Note: PULMONARY On BiPAP, denies shortness of breath. +mild cough and occasional wheezing. Still with leg pain. No fevers or chills. Last Vital Signs Temp Pulse Resp BP Pulse Ox 98.2 F 70 20 149/79 95 11/01/16 08:00 11/01/16 08:00 11/01/16 08:00 11/01/16 08:00 11/01/16 08:00 Gen: NAD on BiPAP Heart: RRR Lung: distant breath sounds, no wheezes Abd: soft, nontender Ext: + edema, +erythema CBC, BMP 10/31/16 07:00 10/31/16 07:00 Active Medications Acetaminophen (Tylenol -) 650 mg PO Q6H PRN PRN Reason: FEVER OR PAIN Aclidinium [place] (Tudorza -) 1 puff IH BID [facility] Last Admin: 11/01/16 10:36 Dose: 1 puff Albuterol Sulfate (Ventolin 0.083% Nebulizer Soln -) 1 amp NEB Q6H PRN PRN Reason: SHORT OF BREATH/WHEEZING Last Admin: 10/31/16 11:15 Dose: 1 amp Aspirin (Ecotrin -) 81 mg PO DAILY [facility] Last Admin: 11/01/16 10:33 Dose: 81 mg Budesonide/Formoterol Fumarate (Symbicort 160/4.5mcg -) 2 puff IH BID [facility] Last Admin: 11/01/16 10:35 Dose: 2 puff Citalopram Hydrobromide (Celexa -) 20 mg PO DAILY [facility] Last Admin: 11/01/16 10:33 Dose: 20 mg Clopidogrel Bisulfate (Plavix -) 75 mg PO DAILY [facility] Last Admin: 11/01/16 10:35 Dose: 75 mg Cyanocobalamin (Vitamin B12 -) 100 mcg PO DAILY [facility] Last Admin: 11/01/16 10:36 Dose: 100 mcg Fenofibric Acid (Trilipix -) 45 mg PO DAILY [facility] Last Admin: 11/01/16 10:33 Dose: 45 mg Heparin Sodium (Porcine) (Heparin -) 5,000 unit SQ BID [facility] Last Admin: 11/01/16 10:34 Dose: 5,000 unit Vancomycin HCl (Vancomycin (Pre-Docked)) 250 mls @ 250 mls/hr IVPB DAILY [facility] Cefepime HCl (Maxipime 1gm Ivpb Pre-Docked) 100 mls @ 200 mls/hr IVPB Q8H-IV [facility] Last Admin: 11/01/16 10:34 Dose: 200 mls/hr Insulin Aspart (Novolog Vial Sliding Scale -) 1 vial SQ ACHS [facility] PRN Reason: Protocol Last Admin: 11/01/16 10:40 Dose: 4 units Insulin Detemir (Levemir Vial) 25 units SQ ACDIN [facility] Last Admin: 10/31/16 17:18 Dose: 25 units Insulin Detemir (Levemir Vial) 30 units SQ AM [facility] Last Admin: 11/01/16 07:03 Dose: Not Given Lactobacillus Acidophilus (Bacid -) 1 tab PO DAILY [facility] Last Admin: 11/01/16 10:33 Dose: 1 tab Nicotine (Nicoderm Patch -) 14 mg TD DAILY [facility] Last Admin: 11/01/16 10:34 Dose: 14 mg Rosuvastatin Calcium (Crestor -) 20 mg PO DAILY [facility] Last Admin: 11/01/16 10:33 Dose: 20 mg Silver Sulfadiazine (Silvadene -) 1 applic TP DAILY [facility] Last Admin: 11/01/16 10:35 Dose: Not Given A/P Cellulitis Chronic Hypoxic and Hypercapneic Respiratory Failure MARTIN HTN DM CAD Smoker h/o CVA - continue antibiotics - inhaled bronchodilators - BiPAP at night and PRN during day - wound care - can defer systemic steroids at this time - DVT prophylaxis
--- NOTE | 2016-11-01 12:07 | PN ---
Progress Note (short form) - Note Progress Note: doing well no sob laying flat Vital Signs Period Temp Pulse Resp BP Sys/Mullen Pulse Ox Last 24 Hr 97.8 F-98.2 F 66-77 17-20 131-149/56-84 95-98 cor-rrr lungs clear abd soft,nt ext scaly skins bilateral venous stasis minimal erythema right greater then left CBC, BMP 10/31/16 07:00 10/31/16 07:00 Microbiology 10/28/16 16:54 Blood - Peripheral Venous Blood Culture - Preliminary NO GROWTH OBTAINED AFTER 72 HOURS, INCUBATION TO CONTINUE FOR 2 DAYS. 10/28/16 16:45 Blood - Peripheral Venous Blood Culture - Preliminary NO GROWTH OBTAINED AFTER 72 HOURS, INCUBATION TO CONTINUE FOR 2 DAYS. 10/28/16 16:54 Urine - Urine Clean Catch Urine Culture - Final NO GROWTH OBTAINED a/p cellulitis venous stasis copd/osas pen allergy day #4 continue cefepime for now, can switch to po keflex 500 tid for one week in am with outpt wound care followup thanks please call back if needed
[2016-11-01] MEDS ORDERED: ACETAMINOPHEN 325 MG TABLET (FP) PO PRN (23:14)
[2016-11-01] MEDS ORDERED: oxyCODONE HCL 5 MG TABLET PO PRN (23:14)
[2016-11-02] MEDS: CEFEPIME 100 ML IVPB SCH ×2 (02:47→10:14)
[2016-11-02] MEDS: INSULIN SLIDING SCALE (NOVOLOG) 1 VIAL SQ SCH ×2 (06:23→11:54)
[2016-11-02] MEDS: INSULIN DETEMIR 100 UNITS/ML MDV SQ SCH (06:51)
[2016-11-02 07:31] LABS: MCH 22.5 pg (25.7-33.7); MCHC 30.9 g/dl (32.0-35.9); MEAN CELL VOLUME 72.7 fl (80-96); MEAN PLT VOLUME 7.3 fl (7.5-11.1); PLATELET COUNT 302 K/MM3 (134-434); RDW 20.7 % (11.9-15.9); WHITE BLOOD COUNT 6.8 K/mm3 (4.0-10.0)
[2016-11-02 08:15] LABS: ALBUMIN 2.2 g/dl (3.4-5.0); ANION GAP 4 (8-16); CO2 35 mmol/L (21-32); SGOT/AST 9 U/L (15-37); SGPT/ALT 9 U/L (12-78)
[2016-11-02 08:17] LABS: ALK PHOS 48 U/L (45-117); BILIRUBIN,TOTAL 0.2 mg/dL (0.2-1.0); GLUCOSE,RANDOM 90 mg/dL (74-106)
[2016-11-02 09:54] VITALS: PULSE 68
[2016-11-02] MEDS: ALBUTEROL SO4 0.083% IH SOL 2.5 MG/3 ML VIAL.NEB. NEB PRN (10:01)
[2016-11-02 10:06] VITALS: BP 147/73; TEMP 97.7
[2016-11-02] MEDS ORDERED: ROSUVASTATIN CA 10 MG TABLET (FP) ONE (10:08)
[2016-11-02] MEDS ORDERED: PT OWN MED DRAWER 7, Y5N ONE (10:09)
[2016-11-02] MEDS: LACTOBACILLUS ACIDOPHILUS 1 EACH TAB (FP) PO SCH (10:12)
[2016-11-02] MEDS: CITALOPRAM HYDROBROMIDE 20 MG TABLET (FP) PO SCH (10:12)
[2016-11-02] MEDS: HEPARIN NA (PORCINE) 5,000 UNITS/ML 1ML VIAL SQ SCH (10:13)
[2016-11-02] MEDS: ASPIRIN COATED 81 MG TABLET.EC PO SCH (10:13)
[2016-11-02] MEDS: ROSUVASTATIN CA 20 MG TABLET (FP) PO SCH (10:13)
[2016-11-02] MEDS: NICOTINE 14 MG/24 HOURS TOPICAL PATCH TD SCH (10:14)
[2016-11-02] MEDS: BUDESONIDE/FORMETEROL FUMARATE 160/4.5 mcg INHALER IH SCH (10:16)
[2016-11-02] MEDS: CLOPIDOGREL BISULFATE 75 MG TABLET (FP) PO SCH (10:16)
[2016-11-02] MEDS: FENOFIBRIC ACID 45 MG CAP PO SCH (10:17)
[2016-11-02] MEDS: ACLIDINIUM BROMIDE 400 MCG/INH AERO.POWD IH SCH (10:17)
[2016-11-02] MEDS: SILVER SULFADIAZINE 1% TOP CREAM 50 GM JAR TP SCH (10:20)
[2016-11-02] MEDS: CYANOCOBALAMIN (VITAMIN B-12) 100 MCG TABLET PO SCH (10:20)
--- NOTE | 2016-11-02 12:19 | DS ---
Physical Examination Vital Signs: Vital Signs Temperature 97.7 F 11/02/16 09:00 Pulse Rate 68 11/02/16 09:54 Respiratory Rate 20 11/02/16 09:00 Blood Pressure 147/73 11/02/16 09:00 O2 Sat by Pulse Oximetry (%) 98 11/02/16 09:54 Findings/Remarks: in bed feels better, d/w ID dr Norman, wound checked with vascular sx earlier , legs better; can be DC home on po Keflex x 1 week; I called pt's , left message d/w pt he prefers to go to [facility], was before there, also in [facility] and [place] has home O2 and BIPAP d/w staff, CM d/w pt's PCP dr Ramila Louise T time 40 min Constitutional: Yes: No Distress, Calm Eyes: Yes: Conjunctiva Clear HENT: Yes: Atraumatic Neck: Yes: Supple Cardiovascular: Yes: Regular Rate and Rhythm Respiratory: Yes: CTA Bilaterally Gastrointestinal: Yes: Soft. No: Distention, Tenderness Renal/: No: CVA Tenderness - Left, CVA Tenderness - Right Musculoskeletal: No: Joint Stiffness, Joint Swelling Extremities: No: Cold, Cool Edema: Yes Peripheral Pulses WNL: Yes Integumentary: Yes: Rash (legs, better), Venous Stasis Changes Neurological: Yes: WNL, Alert, Oriented ...Motor Strength: WNL Psychiatric: Yes: WNL, Alert, Oriented. No: Agitated, Suicidal Ideation Labs: CBC, BMP 11/02/16 06:55 11/02/16 06:55 Discharge Summary Reason For Visit: THERESA; CELLULITIS OF BOTH LOWER EXTREMITIES Current Active Problems THERESA (acute kidney injury) (Acute) CAD (coronary artery disease) (Acute) Cellulitis of both lower extremities (Acute) HTN (hypertension) (Acute) Hyperlipidemia (Acute) Obesity (Acute) Procedures: Principal: legs cellulitis, admitted for wounds and infection tx Other Procedures: IV ATB per ID; wound care per vascular sx. O2, Bipap prn Hospital Course: improved with above; f/u as advised; DC to SNF for rehab and wounds care Condition: Improved - Instructions Diet, Activity, Other Instructions: f/u PCP and vascular surgery in 1-2 weeks after DC home wound care per vascular sx f/u labs CBC CMP in 1-2 weeks Home O2 and BIPAP as ordered cardiology and pulmonary f/u as advised RTER if worse or recurrent falls PFX d/w pt and staff Referrals: Teofilo Cordon MD [Staff Physician] - Liyah Louise MD [Primary Care Provider] - Disposition: INTERMEDIATE FACILITY - Home Medications Comprehensive Discharge Medication List: Ambulatory Orders Albuterol 0.083% Nebulizer Kala [Ventolin 0.083% Nebulizer Soln -] 1 neb NEB Q4H PRN 10/29/16 Aspirin Coated [Ecotrin -] 81 mg PO DAILY 10/29/16 Budesonide/Formeterol Fumarate [SYMBICORT 160/4.5mcg -] 2 inh PO BID 10/29/16 Calcium Carbonate/Vitamin D3 [Oyster Shell Calcium-Vit D Tab] 1 each PO DAILY Citalopram Hydrobromide [Celexa -] 20 mg PO DAILY 10/29/16 Clopidogrel Bisulfate [Plavix -] 75 mg PO DAILY 10/29/16 Cyanocobalamin [Vitamin B12 -] 100 mcg PO DAILY 10/29/16 Fenofibric Acid [Trilipix -] 45 mg PO DAILY 10/29/16 Insulin (LOG) Aspart [NovoLOG -] 0 units SQ QID 10/29/16 Insulin (Levemir) [Levemir Flexpen -] 30 units SQ ACDIN 10/29/16 Insulin Detemir [Levemir Flextouch] 35 unit SQ AM 10/29/16 Lactobacillus Acidophilus [Bacid -] 1 each PO DAILY 10/29/16 Rosuvastatin [Crestor -] 20 mg PO DAILY 10/29/16 Silver Sulfadiazine 1% Top Cr [Silvadene -] 1 applic TP ASDIR 10/29/16 Tiotropium [place] [Spiriva] 1 inh PO DAILY 10/29/16 Acetaminophen [Tylenol .Regular Strength -] 650 mg PO Q6H PRN #0 tablet Albuterol 0.083% Nebulizer Kala [Ventolin 0.083% Nebulizer Soln -] 1 amp NEB Q6H PRN #0 amp 11/02/16 Cephalexin Monohydrate [Keflex -] 500 mg PO Q8H #20 capsule 11/02/16 Insulin Sliding Scale [Novolog Vial Sliding Scale -] 1 vial SQ ACHS units 11/02 Nicotine Patch [Nicoderm Patch -] 14 mg TD DAILY #0 patch 11/02/16 Oxycodone HCl [Roxicodone -] 5 mg PO Q12H PRN #0 tablet MDD 10 mg 11/02/16
--- NOTE | 2016-11-02 12:41 | PN ---
Progress Note, Physician History of Present Illness: PULMONARY ALERT,OOB-CHAIR,COMFORTABLE,-RESP DISTRESS - Current Medication List Current Medications: Active Medications Acetaminophen (Tylenol -) 650 mg PO Q6H PRN PRN Reason: FEVER OR PAIN Acetaminophen (Tylenol -) 325 mg PO Q12H PRN PRN Reason: LEG PAIN Last Admin: 11/01/16 23:55 Dose: 325 mg Aclidinium [place] (Tudorza -) 1 puff IH BID [facility] Last Admin: 11/02/16 10:17 Dose: 1 puff Albuterol Sulfate (Ventolin 0.083% Nebulizer Soln -) 1 amp NEB Q6H PRN PRN Reason: SHORT OF BREATH/WHEEZING Last Admin: 11/02/16 10:01 Dose: 1 amp Aspirin (Ecotrin -) 81 mg PO DAILY [facility] Last Admin: 11/02/16 10:13 Dose: 81 mg Budesonide/Formoterol Fumarate (Symbicort 160/4.5mcg -) 2 puff IH BID [facility] Last Admin: 11/02/16 10:16 Dose: 2 puff Citalopram Hydrobromide (Celexa -) 20 mg PO DAILY [facility] Last Admin: 11/02/16 10:12 Dose: 20 mg Clopidogrel Bisulfate (Plavix -) 75 mg PO DAILY [facility] Last Admin: 11/02/16 10:16 Dose: 75 mg Cyanocobalamin (Vitamin B12 -) 100 mcg PO DAILY [facility] Last Admin: 11/02/16 10:20 Dose: 100 mcg Fenofibric Acid (Trilipix -) 45 mg PO DAILY [facility] Last Admin: 11/02/16 10:17 Dose: 45 mg Heparin Sodium (Porcine) (Heparin -) 5,000 unit SQ BID [facility] Last Admin: 11/02/16 10:13 Dose: 5,000 unit Vancomycin HCl (Vancomycin (Pre-Docked)) 250 mls @ 250 mls/hr IVPB DAILY [facility] Cefepime HCl (Maxipime 1gm Ivpb Pre-Docked) 100 mls @ 200 mls/hr IVPB Q8H-IV [facility] Last Admin: 11/02/16 10:14 Dose: 200 mls/hr Insulin Aspart (Novolog Vial Sliding Scale -) 1 vial SQ ACHS [facility] PRN Reason: Protocol Last Admin: 11/02/16 11:54 Dose: 2 units Insulin Detemir (Levemir Vial) 25 units SQ ACDIN [facility] Last Admin: 11/01/16 16:56 Dose: 25 units Insulin Detemir (Levemir Vial) 30 units SQ AM [facility] Last Admin: 11/02/16 06:51 Dose: 30 units Lactobacillus Acidophilus (Bacid -) 1 tab PO DAILY [facility] Last Admin: 11/02/16 10:12 Dose: 1 tab Nicotine (Nicoderm Patch -) 14 mg TD DAILY [facility] Last Admin: 11/02/16 10:14 Dose: 14 mg Oxycodone HCl (Roxicodone -) 5 mg PO Q12H PRN PRN Reason: LEG PAIN Last Admin: 11/01/16 23:54 Dose: 5 mg Rosuvastatin Calcium (Crestor -) 20 mg PO DAILY [facility] Last Admin: 11/02/16 10:13 Dose: 20 mg Silver Sulfadiazine (Silvadene -) 1 applic TP DAILY [facility] Last Admin: 11/02/16 10:20 Dose: Not Given - Objective Vital Signs: Vital Signs Temperature 97.7 F 11/02/16 09:00 Pulse Rate 68 11/02/16 09:54 Respiratory Rate 20 11/02/16 09:00 Blood Pressure 147/73 11/02/16 09:00 O2 Sat by Pulse Oximetry (%) 98 11/02/16 09:54 Constitutional: Yes: Well Nourished, Calm Eyes: Yes: WNL HENT: Yes: WNL Neck: Yes: WNL Cardiovascular: Yes: Regular Rate and Rhythm, S1, S2 Respiratory: Yes: Diminished Gastrointestinal: Yes: Normal Bowel Sounds, Soft Extremities: Yes: Erythema Edema: Yes Labs: CBC, BMP 11/02/16 06:55 11/02/16 06:55 INR, PTT INR 1.23 (0.82-1.09) H 10/28/16 16:54 Problem List - Problems (1) CAD (coronary artery disease) Code(s): I25.10 - ATHSCL HEART DISEASE OF [place] CORONARY ARTERY W/O ANG PCTRS (2) Cellulitis of both lower extremities Code(s): L03.115 - CELLULITIS OF RIGHT LOWER LIMB L03.116 - CELLULITIS OF LEFT LOWER LIMB (3) HTN (hypertension) Code(s): I10 - ESSENTIAL (PRIMARY) HYPERTENSION (4) Hyperlipidemia Code(s): E78.5 - HYPERLIPIDEMIA, UNSPECIFIED (5) Obesity Code(s): E66.9 - OBESITY, UNSPECIFIED (6) COPD (chronic obstructive pulmonary disease) Code(s): J44.9 - CHRONIC OBSTRUCTIVE PULMONARY DISEASE, UNSPECIFIED Qualifiers : COPD type: COPD with acute exacerbation Qualified Code(s): J44.1 - Chronic obstructive pulmonary disease with (acute) exacerbation (7) Hypoxia Code(s): R09.02 - HYPOXEMIA (8) PVD (peripheral vascular disease) Code(s): I73.9 - PERIPHERAL VASCULAR DISEASE, UNSPECIFIED (9) Sleep apnea Code(s): G47.30 - SLEEP APNEA, UNSPECIFIED (10) Chronic respiratory failure with hypoxia and hypercapnia Code(s): J96.21 - ACUTE AND CHRONIC RESPIRATORY FAILURE WITH HYPOXIA J96.22 - ACUTE AND CHRONIC RESPIRATORY FAILURE WITH HYPERCAPNIA Assessment/Plan IMP ADVANCED COPD WITH CHRONIC HYPOXEMIC/HYPERCAPNEIC RESPIRATORY FAILURE BILATERAL LOWER EXT CELLULITIS PVD MARTIN ON CPAP H/O CVA ASHD HTN DM SMOKER PLAN INHALED BRONCHODILATORS SUPPLEMENTAL O2 BIPAP AT NIGHT AND PRN ANTIBIOTICS PER ID WOUND CARE DR GREEN Problem List - Problems (1) CAD (coronary artery disease) Code(s): I25.10 - ATHSCL HEART DISEASE OF [place] CORONARY ARTERY W/O ANG PCTRS (2) Cellulitis of both lower extremities Code(s): L03.115 - CELLULITIS OF RIGHT LOWER LIMB L03.116 - CELLULITIS OF LEFT LOWER LIMB (3) HTN (hypertension) Code(s): I10 - ESSENTIAL (PRIMARY) HYPERTENSION (4) Hyperlipidemia Code(s): E78.5 - HYPERLIPIDEMIA, UNSPECIFIED (5) Obesity Code(s): E66.9 - OBESITY, UNSPECIFIED (6) COPD (chronic obstructive pulmonary disease) Code(s): J44.9 - CHRONIC OBSTRUCTIVE PULMONARY DISEASE, UNSPECIFIED Qualifiers : COPD type: COPD with acute exacerbation Qualified Code(s): J44.1 - Chronic obstructive pulmonary disease with (acute) exacerbation (7) Hypoxia Code(s): R09.02 - HYPOXEMIA (8) PVD (peripheral vascular disease) Code(s): I73.9 - PERIPHERAL VASCULAR DISEASE, UNSPECIFIED (9) Sleep apnea Code(s): G47.30 - SLEEP APNEA, UNSPECIFIED (10) Chronic respiratory failure with hypoxia and hypercapnia Code(s): J96.21 - ACUTE AND CHRONIC RESPIRATORY FAILURE WITH HYPOXIA J96.22 - ACUTE AND CHRONIC RESPIRATORY FAILURE WITH HYPERCAPNIA
== END 2016-11-02 16:25 | DRG 603 ==
LOC: JER 15:04 → JERBED 19:07 → UNDOADMIN 19:07 → J6S 20:59 → JERBED 20:59 → J6S 23:35
PROVIDERS: ADMIT Internal Medicine; ATTEND Internal Medicine
PROC: 5A09557 Assistance with Respiratory Ventilation, Greater than 96 Consecutive Hours, Continuous Positive Airway Pressure (ICD-10-PCS; principal; 2016-10-30)
DX: L03.116 Cellulitis of left lower limb (principal); J96.11 Chronic respiratory failure with hypoxia; J96.12 Chronic respiratory failure with hypercapnia; D64.9 Anemia, unspecified; J44.9 Chronic obstructive pulmonary disease, unspecified; I73.9 Peripheral vascular disease, unspecified; E11.9 Type 2 diabetes mellitus without complications; L03.115 Cellulitis of right lower limb; I25.10 Atherosclerotic heart disease of native coronary artery without angina pectoris; I10 Essential (primary) hypertension; E78.5 Hyperlipidemia, unspecified; E66.9 Obesity, unspecified; Z68.34 Body mass index [BMI] 34.0-34.9, adult; F17.210 Nicotine dependence, cigarettes, uncomplicated; Z88.0 Allergy status to penicillin
CPT/HCPCS: 36415; 71010-TC; 80048; 80053; 81003; 82550; 83605; 84484; 85025; 85027; 85610; 85730; 86850; 86900; 86901; 87040; 87086; 93005; 93010; 93970-TC; 94640; 94660; 97116-GP; 97163-GP; 99284-25; J1644

== ENCOUNTER 2016-12-26 16:26 | Inpatient (IN) | payer OTHER ==
[2016-12-26 16:38] VITALS: BMI 48.8
[2016-12-26] MEDS ORDERED: ACETAMINOPHEN 325 MG TABLET (FP) PO ONE (16:53)
--- NOTE | 2016-12-26 16:53 | PDOC ---
History of Present Illness - General History Source: Patient Exam Limitations: No Limitations - History of Present Illness Initial Comments: 12/26/16 16:29 The patient is a 66-year-old man with a significant past medical history of hypertension, hypercholesterolemia, cerebrovascular accident, peripheral vascular disease, diabetes mellitus, congestive heart failure, chronic obstructive pulmonary disease (home O2 dependent on 3L) and obesity who presents to the emergency department via EMS for further evaluation of shortness of breath and hypoxia. As per EMS, on arrival, the patient was noted to be 88% on room air, tachycardic to 110 bpm and a temperature of 101.9. The patient has endorsed an intermittent productive cough with yellow phlegm. Upon ER arrival, respiratory was immediately called and patient was placed on BiPAP. On patient interview, the patient does not wish to participate in interview, as he states he states that does not wishes to be in the hospital and answers no and I don't know to questions. He initially denied vomiting and then admitted he vomited approximately an hour ago, as he was noted to have food particles on his guardado. As per patients , the patient is typically very sarcastic, but currently isnt really himself. He has been noted to have a chronic cough that is unchanged from usual. He has a new visiting home health aide from 10:00 AM- 12: 00PM. The patient was noted to be his usual self, by his this morning, before she headed to work. The patient was cleaned and had new clothing. He was notes to take of his bilateral lower extremity dressing, witnessed by his this morning. Allergies: Amoxicillin Trihydrate. Penicillin Clavulanate Past Surgical History: Left Femoral-Pop Bypass. Social History: Current everyday cigarettes smoker. No ETOH and recreational drug use. Primary Care Physician: Dr. Liyah Louise <Harriet Shah - Last Filed: 12/26/16 19:08> <Fletcher Horowitz - Last Filed: 12/31/16 08:26> - General Chief Complaint: Shortness of Breath Stated Complaint: SEPSIS Time Seen by Provider: 12/26/16 16:29 Past History <Harriet Shah - Last Filed: 12/26/16 19:08> - Past Medical History Anemia: No Cardiac Disorders: Yes (CAD) CVA: Yes (no deficit 5years ago.) COPD: Yes (o2 depend home 3-4lpm n/c.) CHF: No Dementia: No Diabetes: Yes GI Disorders: Yes (OBESITY.) Disorders: No HTN: Yes Hypercholesterolemia: Yes Liver Disease: No Seizures: No Thyroid Disease: No - Surgical History Abdominal Surgery: No Appendectomy: No Cardiac Surgery: Yes (LEFT FEM-POP BYPASS) Cholecystectomy: No Lung Surgery: No Neurologic Surgery: No Orthopedic Surgery: No - Immunization History Immunization Up to Date: No - Psycho/Social/Smoking Cessation Hx Anxiety: No Suicidal Ideation: No Smoking Status: Yes Smoking History: Current every day smoker Have you smoked in the past 12 months: Yes Number of Cigarettes Smoked Daily: 10 If you are a former smoker, when did you quit?: 6 months Information on smoking cessation initiated: No 'Breaking Loose' booklet given: 10/28/16 Hx Alcohol Use: Yes Drug/Substance Use Hx: No Substance Use Type: Alcohol Hx Substance Use Treatment: No <Fletcher Horowitz - Last Filed: 12/31/16 08:26> - Past Medical History Allergies/Adverse Reactions: Allergies Allergy/AdvReac Type Severity Reaction Status Date / Time amoxicillin trihydrate Allergy Unknown Verified 12/26/16 16:33 [From Augmentin] potassium clavulanate Allergy Unknown Verified 12/26/16 16:33 [From Augmentin] Home Medications: Ambulatory Orders Albuterol Sulfate Inhaler - [Ventolin Hfa Inhaler -] 0 puff IH PRN PRN 12/27/16 Aspirin [ASA -] 81 mg PO DAILY 12/27/16 Budesonide/Formeterol Fumarate [SYMBICORT 80/4.5mcg -] 0 inh PO DAILY 12/27/16 Cholecalciferol (Vitamin D3) [Vitamin D3 -] 1 tab PO DAILY 12/27/16 Clopidogrel Bisulfate [Plavix -] 0 mg PO DAILY 12/27/16 Cyanocobalamin (Vitamin B-12) [Vitamin B-12] 1 tab PO DAILY 12/27/16 Insulin (Levemir) [Levemir Vial] 0 units SQ BID 12/27/16 Multivit-Min/Iron Fum/Folic AC [Veocd-Yptillq-Fnnjefkv Tablet] 1 each PO DAILY 12/27/16 Rosuvastatin [Crestor -] 0 mg PO HS 12/27/16 Tiotropium [place] [Spiriva] 0 inh PO DAILY 12/27/16 Torsemide 0 mg PO DAILY 12/27/16 Review of Systems - Review of Systems Able to Perform ROS?: No (Uncooperative) <Harriet Shah - Last Filed: 12/26/16 19:08> *Physical Exam - Vital Signs Last Vital Signs Temp Pulse Resp BP Pulse Ox 103.5 F H 102 H 24 160/70 100 12/26/16 17:21 12/26/16 17:21 12/26/16 17:21 12/26/16 17:21 12/26/16 17:21 - Physical Exam Comments: 12/26/16 16:29 GENERAL: The patient is awake, alert, and orietned x 3. Vomitous on guardado. HEAD: Normocephalic, atraumatic. EYES: extraocular movements intact, sclera anicteric, conjunctiva clear. ENT: Normal voice. Dry mucous membranes. NECK: Normal range of motion, supple LUNGS: Distant breath sounds, Mild wheezing in the lungs. HEART: Regular rate and rhythm, without murmur, rub or gallop. ABDOMEN: Soft, Mildly distended abdomen without tenderness. Normoactive bowel sounds. No guarding, no rebound.No CVA tenderness EXTREMITIES: Diffusely erythematous at the bilateral lower extremity that is warm to the touch several open wounds. NEUROLOGICAL: No facial assymetry, Normal speech, moving all 4 extremities spontaneously and symmetrically PSYCH: Normal mood, normal affect. SKIN: Warm, Dry, normal turgor. <Harriet Shah - Last Filed: 12/26/16 19:08> - Vital Signs Last Vital Signs Temp Pulse Resp BP Pulse Ox 99.5 F 104 H 26 H 168/78 100 12/26/16 16:34 12/26/16 16:44 12/26/16 16:34 12/26/16 16:34 12/26/16 16:44 <Fletcher Horowitz - Last Filed: 12/31/16 08:26> Heart Score/ECG Review - ECG Impressions Comment:: 12/26/16 16:57 Twelve-lead EKG was performed and reviewed by me. LBBB Rate of 105 Neg for STEMI per Sgarbossa criteria no significant changes when comared with ekg on 10/28/2016 <Carlos Manuel,Fletcher - Last Filed: 12/31/16 08:26> ED Treatment Course - LABORATORY CBC & Chemistry Diagram: 12/26/16 17:00 12/26/16 17:00 - ADDITIONAL ORDERS Additional order review: Laboratory Results 12/26/16 12/26/16 12/26/16 17:05 17:00 17:00 INR PTT (Actin FS) VBG pH 7.28 L POC VBG pCO2 81.8 H* POC VBG pO2 26.7 L Mixed VBG HCO3 38.0 H Sodium Potassium Chloride Carbon Dioxide Anion Gap BUN Creatinine Creat Clearance w eGFR Random Glucose Lactic Acid 2.450 H* Calcium Total Bilirubin AST ALT Alkaline Phosphatase Creatine Kinase Troponin I B-Natriuretic Peptide 3123.20 H Total Protein Albumin 12/26/16 12/26/16 17:00 17:00 INR 1.17 H PTT (Actin FS) 47.7 H VBG pH POC VBG pCO2 POC VBG pO2 Mixed VBG HCO3 Sodium 141 Potassium 4.4 Chloride 97 L Carbon Dioxide 38 H Anion Gap 6 L BUN 21 H D Creatinine 1.5 H D Creat Clearance w eGFR 46.97 Random Glucose 108 H Lactic Acid Calcium 8.2 L Total Bilirubin 0.4 D AST 12 L D ALT 13 D Alkaline Phosphatase 69 D Creatine Kinase 66 Troponin I < 0.02 B-Natriuretic Peptide Total Protein 7.9 D Albumin 3.4 D 12/26/16 17:00 RBC 5.04 MCV 74.5 L MCHC 30.9 L RDW 18.4 H D MPV 7.4 L Neutrophils % Y Lymphocytes % Y - RADIOLOGY Radiograph Interpretation: 12/26/16 19:09 EXAM: CT/HEAD CT WITHOUT CONTRAST IMPRESSION: Change in mental status CT scan of the brain without intravenous contrast. Since 05/10/2016, there remains moderate atrophy, ventricular dilatation and chronic microvascular ischemic changes. No mass lesion, focal acute infarct or intracranial hemorrhage is identified. There is no shift of the midline structures. The mastoid air cells are well aerated and the calvarium is intact. Moderate deviation of the nasal septum to the left with partial desiccation of the ethmoid air cells, mainly on the left as well as mild mucosal thickening in the left maxillary antrum. EXAM: RAD/CHEST X-RAY PORTABLE IMPRESSION: Portable chest x-ray AP sitting. Since prior chest x-ray dated 2016, the cardiac silhouette remains borderline in size. There are bilateral increase interstitial lung markings and mild bibasal atelectatic changes. Mediastinum and visualized osseous structures appear intact - Medications Given in the ED: ED Medications Discontinued Medications Generic Name Dose Route Start Last Admin Trade Name Felice PRN Reason Stop Dose Admin Acetaminophen 975 mg 12/26/16 16:53 12/26/16 18:03 Tylenol - PO 12/26/16 16:54 Not Given ONCE ONE Acetaminophen 1,000 mg 12/26/16 17:00 12/26/16 17:25 Ofirmev Injection - IVPB 12/26/16 17:01 1,000 mg ONCE ONE Administration Albuterol/Ipratropium 1 amp 12/26/16 17:17 12/26/16 17:21 Duoneb - NEB 12/26/16 17:18 1 amp ONCE ONE Administration Methylprednisolone Sodium Succinate 125 mg 12/26/16 17:17 12/26/16 18:06 Solu-Medrol - IVPB 12/26/16 17:18 125 mg ONCE ONE Administration Ondansetron HCl 4 mg 12/26/16 16:54 12/26/16 18:08 Zofran Injection IVPB 12/26/16 16:55 4 mg ONCE ONE Administration <Harriet Shah - Last Filed: 12/26/16 19:08> - LABORATORY CBC & Chemistry Diagram: 12/30/16 08:00 12/30/16 06:00 - RADIOLOGY Radiology Studies Ordered: Category Date Time Status CHEST X-RAY PORTABLE* [RAD] Stat Radiology 12/26/16 16:51 Ordered <Fletcher Horowitz - Last Filed: 12/31/16 08:26> Medical Decision Making - Medical Decision Making 12/26/16 18:[address] Valle. 12/26/16 19:[address] Valle. Case was discussed. <Harriet Shah - Last Filed: 12/26/16 19:08> - Medical Decision Making 12/26/16 16:52 The patient is a 66-year-old gentleman history of diabetes, obesity, COPD on 3 L of home O2, hypertension, hyperlipidemia, PVD, CHF sent to the emergency department for hypoxia, per EMS the patient was found hypoxic to the high 80s on room air with 3 L in improved to the mid 90s. The patient is uncooperative with his history - he is alert and oriented x 3 but answer sacastically ( stating he was on earth, but later sayign he was in a hospital) - the patient denies any complaints and originally denied vomiting, however the patient does smell of vomit and he has what looks like food particles and vomitus on his guardado and his pants. The patient denies any chest pain, shortness of breath, coughing, abdominal pain, however this is likely not reliable. The patient's was put on BiPAP on arrival, his lungs sounds were distant, patient's legs didn' t reveal significant edema, erythema and to the touch with several open lesions. The patient's was noted to have a fever of 103. Sepsis order set was initiated, will look for a source of infection including pneumonia, UTI. If there is no localizing source, possible cellulitis versus bacteremia. also considered ACS - pts ekg showed LBBB, negative for LA per sgarbossa criteria A portion of this note was documented by scribe services under my direction. I have reviewed the details of the note, within reason, and agree with the documentation with the following case summary and management plan written by me 12/26/16 18:23 opts cxr is clear without obvious infiltrate the pt is combative, likely due to hypercapnia - pt going to CT - but had difficulty as pt was combative - will obtain CT and put pt back on bipap/nebs and recheck his ABG - to make sure his pco2 is improving will start pt on abx for cellulitis lactic acid elevated to 2.5 - will give fluids and reassess anticipate admission tele vs icu 12/26/16 19:10 ct head negative for acute pathology awaitng repeat ABG - csae discussed with dr Leonard shah with management - exact disposition awaiting repeat ABG - will sign out to dr. Kwan to fu with ABG results and dispo. CRITICAL CARE DOCUMENTATION: I spent ~35 minutes of Critical Care time, excluding separately billable procedures, involving high complexity decision making to assess, manipulate and support vital system function(s) to treat single or multiple vital organ system failure and/or to prevent further life threatening deterioration of the patient' s condition. <Carlos Manuel,Fletcher - Last Filed: 12/31/16 08:26> *DC/Admit/Observation/Transfer - Attestations Scribe Attestion: 12/26/16 16:29 Documentation prepared by Harriet Shah, acting as medical insurance collector for Fletcher Horowitz MD. <Harriet Shah - Last Filed: 12/26/16 19:08> - Discharge Dispostion Admit: Yes <Fletcher Horowitz - Last Filed: 12/31/16 08:26> Diagnosis at time of Disposition: Cellulitis of both lower extremities, Chronic respiratory failure with hypoxia and hypercapnia - Referrals
[2016-12-26] MEDS ORDERED: ONDANSETRON 4 MG/2 ML VIAL IVPB ONE (16:54)
[2016-12-26] MEDS ORDERED: ACETAMINOPHEN 1000 MG/100 ML VIAL (NON FORMULARY) IVPB ONE (17:00)
[2016-12-26 17:04] LABS: MCHC 30.9 g/dl (32.0-35.9); MEAN CELL VOLUME 74.5 fl (80-96); MEAN PLT VOLUME 7.4 fl (7.5-11.1); PLATELET COUNT 251 K/MM3 (134-434); RDW 18.4 % (11.9-15.9); WHITE BLOOD COUNT 13.3 K/mm3 (4.0-10.0)
[2016-12-26 17:09] LABS: VENOUS PH 7.28 (7.32-7.42)
[2016-12-26] MEDS ORDERED: methylPREDNISolone NA SUCC 125 MG/2 ML VIAL IVPB ONE (17:17)
[2016-12-26] MEDS ORDERED: ALBUTEROL SO4 2.5/IPRATROPIUM 0.5 INH SOL 3 ML VIAL.NEB. NEB ONE ×2 (17:17→17:20)
[2016-12-26] MEDS ORDERED: ACETAMINOPHEN INJECTION 100 ML IVPB ONE (17:20)
[2016-12-26 17:32] LABS: INR 1.17 (0.82-1.09); PROTHROMBIN TIME (PATIENT) 12.9 SEC (9.98-11.88)
[2016-12-26 17:35] LABS: ACTIVATED PTT 47.7 SECONDS (26.9-34.4)
[2016-12-26 17:37] LABS: ALBUMIN 3.4 g/dl (3.4-5.0); ANION GAP 6 (8-16); BILIRUBIN,TOTAL 0.4 mg/dL (0.2-1.0); CALCIUM 8.2 mg/dL (8.5-10.1); CO2 38 mmol/L (21-32); CREATININE 1.5 mg/dL (0.7-1.3); GLUCOSE,RANDOM 108 mg/dL (74-106); SGOT/AST 12 U/L (15-37); SGPT/ALT 13 U/L (12-78); TOT PROT 7.9 g/dl (6.4-8.2)
[2016-12-26 17:39] LABS: ALK PHOS 69 U/L (45-117); TROPONIN I < 0.02 ng/ml (0.00-0.05)
[2016-12-26] MEDS ORDERED: methylPREDNISolone NA SUCC 125 MG/2 ML VIAL ONE (18:02)
[2016-12-26] MEDS ORDERED: ONDANSETRON 4 MG/2 ML VIAL ONE (18:02)
[2016-12-26] MEDS ORDERED: VANCOMYCIN 1,000 MG in DEXTROSE 5%-WATER - 250 ML IVPB ONE (18:20)
[2016-12-26] MEDS ORDERED: LEVOFLOXACIN 750 MG IVPB 150 ML IVPB ONE ×3 (18:21→19:39)
[2016-12-26] MEDS ORDERED: SODIUM CHLORIDE 1,000 ML IV ONE (18:25)
[2016-12-26] MEDS ORDERED: VANCOMYCIN 1 GRAM (PRE-DOCKED) 250 ML IVPB ONE ×2 (18:47→22:11)
[2016-12-26 20:06] LABS: ARTERIAL BLD GAS O2 SATURATION 98.4 % (90-98.9); ARTERIAL BLOOD GAS BASE EXCESS 7.7 meq/l (-2-2); ARTERIAL BLOOD GAS HCO3 34.5 meq/L (22-26); ARTERIAL BLOOD GAS pH 7.36 (7.35-7.45)
[2016-12-26 20:07] LABS: ALLENS TEST POSITIVE; ART PUNCT SITE RIGHT RADIAL; LPM/O2% 50; MECH. VENT. NO; PT. ON O2? YES; TYPE OF O2 BIPAP
[2016-12-26 20:08] LABS: VENT RATE 14; VT/PRESS IPAP 14/ EPAP 6
[2016-12-26 21:57] LABS: PLATELET ESTIMATE ADEQUATE (NORMAL)
[2016-12-26] MEDS ORDERED: HEMOQUE TEST 1 EACH EACH ONE (22:27)
[2016-12-26] MEDS ORDERED: INSULIN (NOVOLOG) ASPART 100 UNITS/ML 10ML VIAL ONE (23:11)
[2016-12-26] MEDS: INSULIN SLIDING SCALE (NOVOLOG) 1 VIAL SQ SCH (23:19)
[2016-12-27] MEDS ORDERED: ALBUTEROL SO4 6.7 GM HFA INHALER IH PRN (06:16)
[2016-12-27] MEDS: INSULIN SLIDING SCALE (NOVOLOG) 1 VIAL SQ SCH ×5 (06:27→23:31)
[2016-12-27 07:44] LABS: MCH 22.9 pg (25.7-33.7); MCHC 30.6 g/dl (32.0-35.9); MEAN CELL VOLUME 74.8 fl (80-96); MEAN PLT VOLUME 7.5 fl (7.5-11.1); PLATELET COUNT 196 K/MM3 (134-434); RDW 18.5 % (11.9-15.9); WHITE BLOOD COUNT 20.8 K/mm3 (4.0-10.0)
[2016-12-27 08:06] LABS: ALBUMIN 2.8 g/dl (3.4-5.0); BILIRUBIN,TOTAL 0.5 mg/dL (0.2-1.0); CALCIUM 8.3 mg/dL (8.5-10.1); CREATININE 1.7 mg/dL (0.7-1.3)
[2016-12-27 08:07] LABS: TOT PROT 6.9 g/dl (6.4-8.2)
--- NOTE | 2016-12-27 08:59 | PN ---
Progress Note (short form) - Note Progress Note: ID consult dictated imp/reccd 66 year old man with venous stasis, PVD- s/p fem pop Left leg, stent right leg, venous stasis, still smokes with MARTIN admitted with fever, hypoxia last night, lactic acidosis one episode of vomiting he was given vancomycin/levaquin/steroids in the ED awake and alert no further vomiting he is hungry no dysuria no diarrhea no further fever chronic cough unchanged has [employer] at home uses oxygen and bipap at night has vns services sees dr barrera for his legs smokes one pack per week (down from one PPD) sepsis gram positive bacteremia THERESA/CKD pen allergy- tolerates cephalosporins- discharged on keflex in October COPD DM probable strep bacteremia- ?legs, no signs pneumonia, denies GI/ complaints continue vancomycin based on levels given change in renal function ceftriaxone esr/crp repeat blood cultures in am Echo stool guaic- given anemia UA/urine culture further reccd to follow Problem List - Problems (1) Sepsis Code(s): A41.9 - SEPSIS, UNSPECIFIED ORGANISM (2) Bacteremia due to Gram-positive bacteria Code(s): A49.9 - BACTERIAL INFECTION, UNSPECIFIED (3) THERESA (acute kidney injury) Code(s): N17.9 - ACUTE KIDNEY FAILURE, UNSPECIFIED (4) Chronic respiratory failure with hypoxia and hypercapnia Code(s): J96.21 - ACUTE AND CHRONIC RESPIRATORY FAILURE WITH HYPOXIA J96.22 - ACUTE AND CHRONIC RESPIRATORY FAILURE WITH HYPERCAPNIA (5) Diabetes Code(s): E11.9 - TYPE 2 DIABETES MELLITUS WITHOUT COMPLICATIONS Qualifiers: Diabetes mellitus type: type 2
[2016-12-27] MEDS: TORSEMIDE 5 MG TABLET PO SCH (10:00)
[2016-12-27] MEDS ORDERED: CEFTRIAXONE 2 GM in DEXTROSE 5%-WATER - 100 ML IVPB SCH (10:00)
[2016-12-27] MEDS ORDERED: BUDESONIDE/FORMETEROL FUMARATE 80/4.5 mcg INHALER IH SCH (10:00)
[2016-12-27] MEDS ORDERED: LEVOFLOXACIN 250 MG IVPB 50 ML IVPB SCH (10:00)
[2016-12-27] MEDS: CHOLECALCIFEROL (VITAMIN D3) 400 UNIT TABLET (FP) PO SCH (10:01)
[2016-12-27] MEDS: CLOPIDOGREL BISULFATE 75 MG TABLET (FP) PO SCH (10:01)
[2016-12-27] MEDS: ACLIDINIUM BROMIDE 400 MCG/INH AERO.POWD IH SCH ×2 (10:02→23:33)
[2016-12-27] MEDS: RANITIDINE HCL 150 MG TABLET (FP) PO SCH (10:02)
[2016-12-27] MEDS: ASPIRIN 81 MG CHEWABLE TABLETS PO SCH (10:02)
[2016-12-27] MEDS ORDERED: CEFTRIAXONE 100 ML IVPB ONE (10:06)
[2016-12-27] MEDS ORDERED: methylPREDNISolone NA SUCC 40 MG/1 ML VIAL ONE ×2 (10:07→18:46)
[2016-12-27] MEDS: methylPREDNISolone NA SUCC 40 MG/1 ML VIAL IVPB SCH ×2 (10:07→19:01)
--- NOTE | 2016-12-27 10:21 | HP ---
Admitting History and Physical - Primary Care Physician PCP: Danny Valle - Admission Chief Complaint: Low oxygen level History of Present Illness: Pt. was yesterday by VNS, norticed to have O2 sat in 70's, referred to ER. IN ER he was noticed to have fever, Leukocytosis; pt was admitted to Fever, Cellulitis, Acute on Chronic respiratory failure. 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 History of Recent Travel: No Home Medications - Allergies Allergies/Adverse Reactions: Allergies Allergy/AdvReac Type Severity Reaction Status Date / Time amoxicillin trihydrate Allergy Unknown Verified 12/26/16 16:33 [From Augmentin] potassium clavulanate Allergy Unknown Verified 12/26/16 16:33 [From Augmentin] - Home Medications Home Medications: Ambulatory Orders Albuterol Sulfate Inhaler - [Ventolin Hfa Inhaler -] 0 puff IH PRN PRN 12/27/16 Aspirin [ASA -] 81 mg PO DAILY 12/27/16 Budesonide/Formeterol Fumarate [SYMBICORT 80/4.5mcg -] 0 inh PO DAILY 12/27/16 Cholecalciferol (Vitamin D3) [Vitamin D3 -] 1 tab PO DAILY 12/27/16 Clopidogrel Bisulfate [Plavix -] 0 mg PO DAILY 12/27/16 Cyanocobalamin (Vitamin B-12) [Vitamin B-12] 1 tab PO DAILY 12/27/16 Insulin (Levemir) [Levemir Vial] 0 units SQ BID 12/27/16 Multivit-Min/Iron Fum/Folic AC [Detyv-Zeeinft-Uskaasxg Tablet] 1 each PO DAILY 12/27/16 Rosuvastatin [Crestor -] 0 mg PO HS 12/27/16 Tiotropium [place] [Spiriva] 0 inh PO DAILY 12/27/16 Torsemide 0 mg PO DAILY 12/27/16 Family Disease History - Family Disease History Family Disease History: Diabetes: Daughter Review of Systems - Review of Systems Constitutional: denies: Chills, Fever Eyes: denies: Blind Spots, Blurred Vision, Double Vision HENT: denies: Difficult Swallowing, Ear Discharge, Ear Pain, Throat Pain Cardiovascular: denies: Chest Pain, Edema, Palpitations, Shortness of Breath Respiratory: denies: Cough, SOB, Wheezing Gastrointestinal: denies: Abdominal Pain, Nausea, Vomiting Genitourinary: denies: Burning, Discharge, Dysuria Musculoskeletal: denies: Back Pain, Extremity Pain, Joint Swelling Integumentary: reports: Other (legs are "not worse") Neurological: denies: Change in LOC, Change in Speech, Confusion, Syncope Endocrine: denies: Excessive Sweating, Intolerance to Cold Hematology/Lymphatic: denies: Excessive Bleeding Psychiatric: denies: Altered Sleep Pattern, Anxiety, Depression Physical Examination Vital Signs: Vital Signs Temperature 98.1 F 12/26/16 20:18 Pulse Rate 83 12/27/16 08:40 Respiratory Rate 18 12/27/16 06:00 Blood Pressure 146/80 12/27/16 06:00 O2 Sat by Pulse Oximetry (%) 89 L 12/27/16 08:40 Constitutional: Yes: Calm. No: No Distress Eyes: Yes: Conjunctiva Clear, EOM Intact, PERRL HENT: Yes: Normocephalic. No: Pharyngeal Erythema, Rhinnorhea Neck: Yes: Supple, Trachea Midline. No: Lymphadenopathy Cardiovascular: Yes: Regular Rate and Rhythm, S1, S2 Respiratory: Yes: Regular, Other (coarse BS bilat.) Gastrointestinal: Yes: Normal Bowel Sounds, Soft, Abdomen, Obese ...Rectal Exam: Yes: Deferred Renal/: No: Hematuria, Incontinence Musculoskeletal: No: Back Pain, Joint Stiffness, Joint Swelling Edema: Yes Edema: LLE: 2+, RLE: 2+ Integumentary: Yes: Laceration, Rash, Skin Tear Neurological: Yes: Alert, Oriented Labs: CBC, BMP 12/27/16 07:20 12/27/16 07:20 Imaging - Results Chest X-ray: Report Reviewed Cat Scan: Report Reviewed Problem List - Problems (1) Sepsis Assessment/Plan: on IV Abtx ID consult f/u BCX, UCX Code(s): A41.9 - SEPSIS, UNSPECIFIED ORGANISM (2) Bacteremia due to Gram-positive bacteria Code(s): A49.9 - BACTERIAL INFECTION, UNSPECIFIED (3) Cellulitis of both lower extremities Code(s): L03.115 - CELLULITIS OF RIGHT LOWER LIMB L03.116 - CELLULITIS OF LEFT LOWER LIMB (4) Acute and chronic respiratory failure with hypercapnia Assessment/Plan: Cont BIPAP- as much as tolerated. Pulmonary consult Admitt to monitor bed. Solumedrol Code(s): J96.22 - ACUTE AND CHRONIC RESPIRATORY FAILURE WITH HYPERCAPNIA (5) Chronic respiratory failure with hypoxia and hypercapnia Code(s): J96.21 - ACUTE AND CHRONIC RESPIRATORY FAILURE WITH HYPOXIA J96.22 - ACUTE AND CHRONIC RESPIRATORY FAILURE WITH HYPERCAPNIA (6) PVD (peripheral vascular disease) Code(s): I73.9 - PERIPHERAL VASCULAR DISEASE, UNSPECIFIED (7) HTN (hypertension) Code(s): I10 - ESSENTIAL (PRIMARY) HYPERTENSION (8) Diabetes mellitus, insulin dependent (IDDM), uncontrolled Assessment/Plan: TO monitor BGMs Code(s): E10.65 - TYPE 1 DIABETES MELLITUS WITH HYPERGLYCEMIA (9) Morbid obesity Code(s): E66.01 - MORBID (SEVERE) OBESITY DUE TO EXCESS CALORIES (10) Chronic renal disease Assessment/Plan: Creatinine trending up. Light IV hydration Code(s): N18.9 - CHRONIC KIDNEY DISEASE, UNSPECIFIED Assessment/Plan DVT proph
[2016-12-27] MEDS ORDERED: SODIUM CHLORIDE 1,000 ML IV SCH (10:45)
--- NOTE | 2016-12-27 11:48 | CONS ---
DATE OF CONSULTATION: 12/27/2016 REQUESTING PHYSICIAN: Danny Valle MD PLACE OF CONSULTATION: The patient was seen in the emergency room. HISTORY OF PRESENT ILLNESS: This is a 66-year-old man who was recently in the hospital in October with worsening cellulitis of both of his legs. He has chronic venous stasis. He also has a history of obstructive sleep apnea, is on home oxygen therapy in the daytime and uses CPAP at night. He also has a home health aide and visiting nurse services, and is followed by Dr. oCrdon for his legs. He apparently gets his legs wrapped by his visiting nurse. He was admitted via the emergency room yesterday. He was brought via EMS for shortness of breath and hypoxia. His O2 saturation was 88% on room air, and he had a fever of 101.9 when EMS arrived. In the emergency room, he was awake and alert. He did admit that he had vomited once at home and that morning had been at his baseline. He was behaving appropriately and he had no complaints when his left for work earlier that day. In the emergency room, he had blood work done, he was given vancomycin, and he had a fever of 103.5. He was given vancomycin and Levaquin. He was given steroids for his COPD, and I was asked to see him. He was also noted to have an elevated lactic acid of 2.5 and was given IV fluids. This morning, he is awake and alert. He is currently on his BiPAP. He has no complaints whatsoever. He notes his cough is at baseline. He has no further vomiting. He has no abdominal pain or chest pain. He has no problems urinating. He remembers me quite well. He is allergic to AMOXICILLIN and POTASSIUM CLAVULANATE He has taken cephalosporins in the past, and in October, he was discharged on Keflex. PAST MEDICAL HISTORY: Notable for history of coronary artery disease. He had a CVA 5 years ago with no deficit. He has COPD and is on 3-4 L of oxygen at home. He has diabetes, obesity, hypertension, hypercholesterolemia. He has had a left femoral popliteal bypass, and he states he has a stent in his right leg. Those are his only two surgical procedures. FAMILY HISTORY: Noncontributory. SOCIAL HISTORY: He is . He is currently not working. He smokes 1 pack per week; he used to smoke 1 pack per day. He denies any substance use. REVIEW OF SYSTEMS: He denies any further vomiting. He has no abdominal pain or chest pain. He has no diarrhea or dysuria. PHYSICAL EXAMINATION: Vital signs: His maximum temperature was 103.5, current temperature is 98.1. Pulse is 83, his respiratory rate is 18, blood pressure is 146/80. General: He is resting comfortably. He is flat in bed wearing his BiPAP, and he is alert. HEENT: He is normocephalic. His eyes are anicteric. He is wearing the BiPAP; hence I cannot look in his mouth. He has no conjunctival hemorrhages in his eyes. Neck: Supple. He has no meningismus. Lungs: Have diminished breath sounds at bases. Clear to auscultation. Heart: Regular rate and rhythm. Abdomen: Soft, nontender. Extremities: Notable for scaly peeling skin from below his knees down to his ankles and feet on both his legs. He has no serous drainage. They are mildly erythematous. LABORATORIES: Notable for a white count on admission of 13.3, this morning it is 20.8, hemoglobin is 10.8, platelets are 196. INR is 1.1. ABG showed a pCO2 of 62.9 last night. This morning, BUN 26, creatinine 1.7, glucose 193. LFTs are normal. No urinalysis was sent. Blood cultures 2 of 4 bottles are growing gram-positive cocci in long chains. Chest x-ray shows no evidence of any acute lung disease, and head CT was done as well in the emergency room and showed no acute intracranial pathology. His lactic acid was 2.45 on admission and now is 1.5. SUMMARY: This is a 66-year-old man with diabetes, chronic venous stasis, peripheral vascular disease, obstructive sleep apnea, who is still smoking, and was admitted with fever, hypoxia and lactic acidosis. He has sepsis, gram-positive bacteremia, worsening chronic kidney disease in the setting of a PENICILLIN allergy, but he is able to take cephalosporins. He has a probable streptococcal bacteremia, source of which is unclear, possibly his legs. There are no sign of pneumonia. He denies any gastrointestinal or genitourinary complaints, though he does have anemia. I would continue his vancomycin based on levels, given change in renal function, switch him to ceftriaxone from Levaquin, check his sedimentation rates CRP, repeat blood cultures, would obtain an echocardiogram and would obtain stool guaiac given his anemia, and UA and urine culture have been ordered, as well. Further recommendations to follow based on the above. HUNTER STRAUSS M.D. JULIO/[id number]
[2016-12-27] MEDS: NICOTINE 14 MG/24 HOURS TOPICAL PATCH TD SCH (12:33)
[2016-12-27] MEDS: INSULIN DETEMIR 100 UNITS/ML MDV SQ SCH ×2 (12:36→23:31)
[2016-12-27] MEDS ORDERED: INSULIN (NOVOLOG) ASPART 100 UNITS/ML 10ML VIAL ONE (12:42)
[2016-12-27] MEDS ORDERED: ALBUTEROL SO4 2.5/IPRATROPIUM 0.5 INH SOL 3 ML VIAL.NEB. NEB ONE (12:47)
[2016-12-27 13:05] LABS: METAMYELOCYTE 1 % (0-2)
[2016-12-27] MEDS ORDERED: VANCOMYCIN 1,250 MG in DEXTROSE 5%-WATER - 250 ML IVPB ONE (13:15)
--- NOTE | 2016-12-27 14:02 | CONSULT ---
Consultation: REQUESTING PROVIDER: CONSULT REQUEST: We have been asked to medically evaluate this patient for sob. HISTORY OF PRESENT ILLNESS: This is a 66 yo M with PMH of COPD on 3-4 L at home and BIPAP, past heavy smoker 50 pack yr hx, b/l LE venous stasis ulcers followed in wound care, PAD, DM, CHF, HTN, HLD, CVA, who presents due to sob that started yesterday. On presentation he was febrile 101.9, tachycardic and had O2 sat 88% on RA ( presumable baseline as he is on home O2). Patient states that his b/l LE have been getting redder and more tender over the past few days. last time he took abx for cellulitis was 1-2 mo ago . He states that althoughhe has had rhinorrhea for the past 2 weeks, he has not noticed his breathing getting worse. He usually uses bipap every night and intermittently during the day. Otherwise he uses NC O2. He has not noticed an increase in his need for O2. he has a chronic cough with yellow sputum that has not gotten worse. He states he is not at his respiratory baseline. He denies chest pain, dizziness, lethargy, myalgia. REVIEW OF SYSTEMS: CONSTITUTIONAL: Absent: loss of appetite, weight change HEENT: Absent: throat pain, ear pain CARDIOVASCULAR: Absent: chest pain, syncope, palpitations RESPIRATORY: Absent: orthopnea, wheezing, stridor, hemoptysis GASTROINTESTINAL: Absent: abdominal pain, abdominal distension, nausea, vomiting, diarrhea GENITOURINARY: Absent: dysuria MUSCULOSKELETAL: Absent: back pain, neck pain SKIN: Absent: pallor HEMATOLOGIC/IMMUNOLOGIC: Absent: easy bleeding, easy bruising ENDOCRINE: Absent: unexplained weight gain, unexplained weight loss NEUROLOGIC: Absent: headache, focal weakness or paresthesias PSYCHIATRIC: Absent: anxiety, depression PHYSICAL EXAMINATION Vital Signs - 24 hr 12/26/16 12/26/16 12/27/16 20:18 23:20 01:00 Temperature 98.1 F Pulse Rate 87 Pulse Rate [ 85 81 Radial] Respiratory 21 19 19 Rate Blood Pressure 144/71 Blood Pressure 122/55 133/67 [Right Arm] O2 Sat by Pulse 100 100 Oximetry (%) 12/27/16 12/27/16 06:00 08:40 Temperature Pulse Rate 90 83 Pulse Rate [ Radial] Respiratory 18 Rate Blood Pressure 146/80 Blood Pressure [Right Arm] O2 Sat by Pulse 89 L Oximetry (%) GENERAL: Awake, alert, and fully oriented, in no acute distress. HEAD: Normal with no signs of trauma. EYES: Pupils equal, round and reactive to light, extraocular movements intact, sclera anicteric, conjunctiva clear. EARS, NOSE, THROAT: Moist mucous membranes. NECK: supple LUNGS: diffusely restricted breath sounds HEART: Regular rate and rhythm, normal S1 and S2 ABDOMEN: obese, Soft, nontender, not distended, normoactive bowel sounds MUSCULOSKELETAL: No CVA tenderness. UPPER EXTREMITIES: 2+ pulses, No peripheral edema. LOWER EXTREMITIES: 1+ pulses, well-perfused. 2+ edema b/l, red, warm, tender with multiple breaks in skin, malodorous NEUROLOGICAL: Cranial nerves II-XII grossly intact. Normal speech. PSYCHIATRIC: Cooperative. Good eye contact. Appropriate mood and affect. SKIN: lesions as above Laboratory Results - last 24 hr 12/26/16 12/26/16 12/27/16 22:25 22:34 05:32 WBC RBC Hgb Hct MCV MCHC RDW Plt Count MPV Neutrophils % Lymphocytes % Band Neutrophils Metamyelocytes Differential Comment Sodium Potassium Chloride Carbon Dioxide Anion Gap BUN Creatinine Creat Clearance w eGFR POC Glucometer [phone] Random Glucose Lactic Acid 1.513 Calcium Total Bilirubin AST ALT Alkaline Phosphatase Total Protein Albumin Random Vancomycin 12/27/16 12/27/16 12/27/16 07:20 07:20 07:20 WBC 20.8 H D RBC 4.73 Hgb 10.8 L Hct 35.4 MCV 74.8 L MCHC 30.6 L RDW 18.5 H Plt Count 196 D MPV 7.5 Neutrophils % 92.0 H Lymphocytes % 1.0 L D Band Neutrophils 6.0 Metamyelocytes 1 D Differential Comment Manual diff done Sodium 140 Potassium 4.9 Chloride 99 Carbon Dioxide 38 H Anion Gap 3 L BUN 26 H D Creatinine 1.7 H Creat Clearance w eGFR 40.65 POC Glucometer Random Glucose 193 H D Lactic Acid 1.556 Calcium 8.3 L Total Bilirubin 0.5 D AST 17 D ALT 13 Alkaline Phosphatase 55 D Total Protein 6.9 Albumin 2.8 L Random Vancomycin 12/27/16 09:13 WBC RBC Hgb Hct MCV MCHC RDW Plt Count MPV Neutrophils % Lymphocytes % Band Neutrophils Metamyelocytes Differential Comment Sodium Potassium Chloride Carbon Dioxide Anion Gap BUN Creatinine Creat Clearance w eGFR POC Glucometer Random Glucose Lactic Acid Calcium Total Bilirubin AST ALT Alkaline Phosphatase Total Protein Albumin Random Vancomycin 4.121 Active Medications Generic Name Dose Route Start Last Admin Trade Name Freq PRN Reason Stop Dose Admin Aclidinium [place] 1 puff 12/27/16 10:00 12/27/16 10:02 Tudorza - IH 1 puff BID RAJESH Administration Albuterol Sulfate 1 puff 12/27/16 06:16 12/27/16 10:03 Ventolin Hfa Inhaler - IH 1 puff Q6H PRN Administration ASTHMA Albuterol/Ipratropium 1 amp 12/26/16 21:34 Duoneb - NEB QIDR PRN SHORTNESS OF BREATH Aspirin 81 mg 12/27/16 10:00 12/27/16 10:02 Asa - PO 81 mg DAILY RAJESH Administration Budesonide/Formoterol Fumarate puff 12/27/16 10:00 Symbicort 80/4.5mcg - IH DAILY RAJESH Cholecalciferol 400 unit 12/27/16 10:00 12/27/16 10:01 Vitamin D3 - PO 400 unit DAILY RAJESH Administration Clopidogrel Bisulfate 75 mg 12/27/16 10:00 12/27/16 10:01 Plavix - PO 75 mg DAILY RAJESH Administration Ceftriaxone Sodium 2 gm/ 100 mls @ 200 mls/hr 12/27/16 10:00 12/27/16 10:07 Dextrose IVPB 200 mls/hr DAILY RAJESH Administration Sodium Chloride 1,000 mls @ 50 mls/hr 12/27/16 10:45 12/27/16 12:50 Normal Saline - IV 12/28/16 06:44 50 mls/hr ASDIR RAJESH Administration Vancomycin HCl 1,250 mg/ 250 mls @ 250 mls/hr 12/27/16 13:15 Dextrose IVPB 12/27/16 14:14 ONCE ONE Protocol Insulin Aspart 1 vial 12/27/16 07:00 12/27/16 12:35 Novolog Vial Sliding Scale - SQ Not Given ACHS RAJESH Protocol Insulin Detemir 25 units 12/27/16 10:00 12/27/16 12:36 Levemir Vial SQ 25 units BID RAJESH Administration Methylprednisolone Sodium Succinate 40 mg 12/27/16 09:00 12/27/16 10:07 Solu-Medrol - IVPB 40 mg Q6H-IV RAJESH Administration Nicotine 14 mg 12/27/16 10:00 12/27/16 12:33 Nicoderm Patch - TD 14 mg DAILY RAJESH Administration Ranitidine HCl 150 mg 12/27/16 10:00 12/27/16 10:02 Zantac - PO 150 mg DAILY RAJESH Administration Rosuvastatin Calcium 5 mg 12/27/16 22:00 Crestor - PO HS RAJESH Torsemide 5 mg 12/27/16 10:00 12/27/16 10:00 Demadex - PO 5 mg DAILY RAJESH Administration ASSESSMENT/PLAN: COPD -on chronic O2 -abg suggestive of chronic CO2 retention -CXR no acute process or change from previous study -no increase on O2 demand -no apparent exacerbation -continue NC O2 and BIPAP as needed -continue home albuterol, symbicort, tudorza -systemic steroids not indicated Sepsis due to Gram posistive bacteremia -LE cellulitis likely source, likely strep -cultures + Gram posistive cocci in chains -ID consult appreciated -f/u repeat cultures, esr crp, stool guaiac, urine culture -robert Faustin -recommend vascular wound care consult. DM -abdirashid saldaña sliding scale Dispo: We will continue to follow the patient. Thank you for this consultative opportunity. Problem List - Problems (1) Bacteremia due to Gram-positive bacteria Code(s): A49.9 - BACTERIAL INFECTION, UNSPECIFIED (2) Cellulitis of both lower extremities Code(s): L03.115 - CELLULITIS OF RIGHT LOWER LIMB L03.116 - CELLULITIS OF LEFT LOWER LIMB (3) Chronic renal disease Code(s): N18.9 - CHRONIC KIDNEY DISEASE, UNSPECIFIED (4) Sepsis Code(s): A41.9 - SEPSIS, UNSPECIFIED ORGANISM (5) Chronic respiratory failure with hypoxia and hypercapnia Code(s): J96.21 - ACUTE AND CHRONIC RESPIRATORY FAILURE WITH HYPOXIA J96.22 - ACUTE AND CHRONIC RESPIRATORY FAILURE WITH HYPERCAPNIA (6) THERESA (acute kidney injury) Code(s): N17.9 - ACUTE KIDNEY FAILURE, UNSPECIFIED (7) CAD (coronary artery disease) Code(s): I25.10 - ATHSCL HEART DISEASE OF [place] CORONARY ARTERY W/O ANG PCTRS (8) COPD (chronic obstructive pulmonary disease) Code(s): J44.9 - CHRONIC OBSTRUCTIVE PULMONARY DISEASE, UNSPECIFIED Qualifiers : COPD type: COPD with acute exacerbation Qualified Code(s): J44.1 - Chronic obstructive pulmonary disease with (acute) exacerbation (9) CVA (cerebral vascular accident) Code(s): I63.9 - CEREBRAL INFARCTION, UNSPECIFIED (10) Cellulitis Code(s): L03.90 - CELLULITIS, UNSPECIFIED Qualifiers: Site of cellulitis of extremity: lower extremity Laterality: unspecified laterality Qualified Code(s): L03.119 - Cellulitis of unspecified part of limb (11) Chronic venous stasis dermatitis of both lower extremities Code(s): I83.11 - VARICOSE VEINS OF RIGHT LOWER EXTREMITY WITH INFLAMMATION I83.12 - VARICOSE VEINS OF LEFT LOWER EXTREMITY WITH INFLAMMATION (12) Fever Code(s): R50.9 - FEVER, UNSPECIFIED Qualifiers: Fever type: other Qualified Code(s): R50.81 - Fever presenting with conditions classified elsewhere (13) HTN (hypertension) Code(s): I10 - ESSENTIAL (PRIMARY) HYPERTENSION (14) Obesity Code(s): E66.9 - OBESITY, UNSPECIFIED (15) Diabetes Code(s): E11.9 - TYPE 2 DIABETES MELLITUS WITHOUT COMPLICATIONS Qualifiers: Diabetes mellitus type: type 2 (16) Diabetes mellitus, insulin dependent (IDDM), uncontrolled Code(s): E10.65 - TYPE 1 DIABETES MELLITUS WITH HYPERGLYCEMIA (17) Morbid obesity Code(s): E66.01 - MORBID (SEVERE) OBESITY DUE TO EXCESS CALORIES (18) MARTIN treated with BiPAP Code(s): G47.33 - OBSTRUCTIVE SLEEP APNEA (ADULT) (PEDIATRIC) Visit type - Emergency Visit Emergency Visit: Yes ED Registration Date: 12/26/16 Care time: The patient presented to the Emergency Department on the above date and was hospitalized for further evaluation of their emergent condition. - New Patient This patient is new to me today: Yes Date on this admission: 12/27/16 - Critical Care Critical Care patient: No
--- NOTE | 2016-12-27 15:44 | PN ---
Teaching Attending Note Name of Resident: Francesca Huerta ATTENDING PHYSICIAN STATEMENT I saw and evaluated the patient. I reviewed the resident's note and discussed the case with the resident. I agree with the resident's findings and plan as documented. SUBJECTIVE: In brief. 66 M, advanced COPD (significant smoking) on 3-4 L at home and nocturnal, BIPAP, and bilateral LE venous stasis ulcers followed in wound care, PAD, DM, CHF, HTN, HLD, and CVA. Admitted via the ER due to increased LE edema and erythema. No increase in O2 need, no increase in sputum production, no fever/chills, or hemoptysis. Intake & Output 12/24/16 12/25/16 12/26/16 12/27/16 23:59 23:59 23:59 23:59 Intake Total 250 Balance 250 Weight 360 lb Last Vital Signs Temp Pulse Resp BP Pulse Ox 98.1 F 83 18 146/80 89 L 12/26/16 20:18 12/27/16 08:40 12/27/16 06:00 12/27/16 06:00 12/27/16 08:40 Active Medications Aclidinium [place] (Tudorza -) 1 puff IH BID [facility] Last Admin: 12/27/16 10:02 Dose: 1 puff Albuterol Sulfate (Ventolin Hfa Inhaler -) 1 puff IH Q6H PRN PRN Reason: ASTHMA Last Admin: 12/27/16 10:03 Dose: 1 puff Albuterol/Ipratropium (Duoneb -) 1 amp NEB QIDR PRN PRN Reason: SHORTNESS OF BREATH Aspirin (Asa -) 81 mg PO DAILY [facility] Last Admin: 12/27/16 10:02 Dose: 81 mg Budesonide/Formoterol Fumarate (Symbicort 160/4.5mcg -) 2 puff IH BID [facility] Cholecalciferol (Vitamin D3 -) 400 unit PO DAILY [facility] Last Admin: 12/27/16 10:01 Dose: 400 unit Clopidogrel Bisulfate (Plavix -) 75 mg PO DAILY [facility] Last Admin: 12/27/16 10:01 Dose: 75 mg Ceftriaxone Sodium 2 gm/ (Dextrose) 100 mls @ 200 mls/hr IVPB DAILY [facility] Last Admin: 12/27/16 10:07 Dose: 200 mls/hr Sodium Chloride (Normal Saline -) 1,000 mls @ 50 mls/hr IV ASDIR [facility] Stop: 12/28/16 06:44 Last Admin: 12/27/16 12:50 Dose: 50 mls/hr Insulin Aspart (Novolog Vial Sliding Scale -) 1 vial SQ ACHS [facility] PRN Reason: Protocol Last Admin: 12/27/16 12:35 Dose: Not Given Insulin Detemir (Levemir Vial) 25 units SQ BID [facility] Last Admin: 12/27/16 12:36 Dose: 25 units Nicotine (Nicoderm Patch -) 14 mg TD DAILY [facility] Last Admin: 12/27/16 12:33 Dose: 14 mg Ranitidine HCl (Zantac -) 150 mg PO DAILY [facility] Last Admin: 12/27/16 10:02 Dose: 150 mg Rosuvastatin Calcium (Crestor -) 5 mg PO HS [facility] Torsemide (Demadex -) 5 mg PO DAILY [facility] Last Admin: 12/27/16 10:00 Dose: 5 mg GENERAL: Awake, alert, and fully oriented, NAD HEAD: Normal with no signs of trauma. EYES: Pupils equal, round and reactive to light, extraocular movements intact, sclera anicteric, conjunctiva clear. EARS, NOSE, THROAT: Moist mucous membranes. NECK: supple LUNGS: decreased BS at the bases HEART: Regular rate and rhythm, normal S1 and S2 ABDOMEN: obese, Soft, nontender, not distended, normoactive bowel sounds MUSCULOSKELETAL: No CVA tenderness. UPPER EXTREMITIES: 2+ pulses, No peripheral edema. LOWER EXTREMITIES: 1+ pulses, well-perfused. 2+ edema b/l, red, warm, tender with multiple breaks in skin, malodorous NEUROLOGICAL: Non-focal PSYCHIATRIC: Cooperative. Good eye contact. Appropriate mood and affect. SKIN: lesions as above Laboratory Results - last 24 hr 12/26/16 12/26/16 12/26/16 17:00 17:00 17:00 WBC 13.3 H D RBC 5.04 Hgb 11.6 L D Hct 37.5 MCV 74.5 L MCHC 30.9 L RDW 18.4 H D Plt Count 251 MPV 7.4 L Neutrophils % 84.0 H Lymphocytes % 5.0 L D Monocytes % 3.0 L Eosinophils % 1.0 D Band Neutrophils 7.0 Metamyelocytes Differential Comment Platelet Estimate Adequate RBC Morphology Appears normal INR 1.17 H PTT (Actin FS) 47.7 H Puncture Site ABG pH ABG pCO2 at Pt Temp ABG pO2 at Pt Temp ABG HCO3 ABG O2 Sat (Measured) ABG O2 Content ABG Base Excess Paul Test VBG pH POC VBG pCO2 POC VBG pO2 Mixed VBG HCO3 O2 Delivery Device Oxygen Flow Rate Vent Mode Vent Rate Mechanical Rate PEEP Pressure Support Vent Sodium 141 Potassium 4.4 Chloride 97 L Carbon Dioxide 38 H Anion Gap 6 L BUN 21 H D Creatinine 1.5 H D Creat Clearance w eGFR 46.97 POC Glucometer Random Glucose 108 H Lactic Acid Calcium 8.2 L Total Bilirubin 0.4 D AST 12 L D ALT 13 D Alkaline Phosphatase 69 D Creatine Kinase 66 Troponin I < 0.02 B-Natriuretic Peptide Total Protein 7.9 D Albumin 3.4 D Random Vancomycin Blood Type Antibody Screen 12/26/16 12/26/16 12/26/16 17:00 17:00 17:00 WBC RBC Hgb Hct MCV MCHC RDW Plt Count MPV Neutrophils % Lymphocytes % Monocytes % Eosinophils % Band Neutrophils Metamyelocytes Differential Comment Platelet Estimate RBC Morphology INR PTT (Actin FS) Puncture Site ABG pH ABG pCO2 at Pt Temp ABG pO2 at Pt Temp ABG HCO3 ABG O2 Sat (Measured) ABG O2 Content ABG Base Excess Paul Test VBG pH POC VBG pCO2 POC VBG pO2 Mixed VBG HCO3 O2 Delivery Device Oxygen Flow Rate Vent Mode Vent Rate Mechanical Rate PEEP Pressure Support Vent Sodium Potassium Chloride Carbon Dioxide Anion Gap BUN Creatinine Creat Clearance w eGFR POC Glucometer Random Glucose Lactic Acid 2.450 H* Calcium Total Bilirubin AST ALT Alkaline Phosphatase Creatine Kinase Troponin I B-Natriuretic Peptide 3123.20 H Total Protein Albumin Random Vancomycin Blood Type AB POSITIVE Antibody Screen Negative 12/26/16 12/26/16 12/26/16 17:05 18:49 22:25 WBC RBC Hgb Hct MCV MCHC RDW Plt Count MPV Neutrophils % Lymphocytes % Monocytes % Eosinophils % Band Neutrophils Metamyelocytes Differential Comment Platelet Estimate RBC Morphology INR PTT (Actin FS) Puncture Site Right radial ABG pH 7.36 ABG pCO2 at Pt Temp 62.9 H* ABG pO2 at Pt Temp 110.0 H D ABG HCO3 34.5 H ABG O2 Sat (Measured) 98.4 ABG O2 Content 15.1 ABG Base Excess 7.7 H Paul Test Positive VBG pH 7.28 L POC VBG pCO2 81.8 H* POC VBG pO2 26.7 L Mixed VBG HCO3 38.0 H O2 Delivery Device Bipap Oxygen Flow Rate 50 Vent Mode S/t Vent Rate 14 Mechanical Rate No PEEP 0.0 Pressure Support Vent Ipap 14/ epap 6 Sodium Potassium Chloride Carbon Dioxide Anion Gap BUN Creatinine Creat Clearance w eGFR POC Glucometer Random Glucose Lactic Acid 1.513 Calcium Total Bilirubin AST ALT Alkaline Phosphatase Creatine Kinase Troponin I B-Natriuretic Peptide Total Protein Albumin Random Vancomycin Blood Type Antibody Screen 12/26/16 12/27/16 12/27/16 22:34 05:32 07:20 WBC 20.8 H D RBC 4.73 Hgb 10.8 L Hct 35.4 MCV 74.8 L MCHC 30.6 L RDW 18.5 H Plt Count 196 D MPV 7.5 Neutrophils % 92.0 H Lymphocytes % 1.0 L D Monocytes % Eosinophils % Band Neutrophils 6.0 Metamyelocytes 1 D Differential Comment Manual diff done Platelet Estimate RBC Morphology INR PTT (Actin FS) Puncture Site ABG pH ABG pCO2 at Pt Temp ABG pO2 at Pt Temp ABG HCO3 ABG O2 Sat (Measured) ABG O2 Content ABG Base Excess Paul Test VBG pH POC VBG pCO2 POC VBG pO2 Mixed VBG HCO3 O2 Delivery Device Oxygen Flow Rate Vent Mode Vent Rate Mechanical Rate PEEP Pressure Support Vent Sodium Potassium Chloride Carbon Dioxide Anion Gap BUN Creatinine Creat Clearance w eGFR POC Glucometer 172.06060 101.29300 Random Glucose Lactic Acid Calcium Total Bilirubin AST ALT Alkaline Phosphatase Creatine Kinase Troponin I B-Natriuretic Peptide Total Protein Albumin Random Vancomycin Blood Type Antibody Screen 12/27/16 12/27/16 12/27/16 07:20 07:20 09:13 WBC RBC Hgb Hct MCV MCHC RDW Plt Count MPV Neutrophils % Lymphocytes % Monocytes % Eosinophils % Band Neutrophils Metamyelocytes Differential Comment Platelet Estimate RBC Morphology INR PTT (Actin FS) Puncture Site ABG pH ABG pCO2 at Pt Temp ABG pO2 at Pt Temp ABG HCO3 ABG O2 Sat (Measured) ABG O2 Content ABG Base Excess Paul Test VBG pH POC VBG pCO2 POC VBG pO2 Mixed VBG HCO3 O2 Delivery Device Oxygen Flow Rate Vent Mode Vent Rate Mechanical Rate PEEP Pressure Support Vent Sodium 140 Potassium 4.9 Chloride 99 Carbon Dioxide 38 H Anion Gap 3 L BUN 26 H D Creatinine 1.7 H Creat Clearance w eGFR 40.65 POC Glucometer Random Glucose 193 H D Lactic Acid 1.556 Calcium 8.3 L Total Bilirubin 0.5 D AST 17 D ALT 13 Alkaline Phosphatase 55 D Creatine Kinase Troponin I B-Natriuretic Peptide Total Protein 6.9 Albumin 2.8 L Random Vancomycin 4.121 Blood Type Antibody Screen ASSESSMENT/PLAN: O2 dependent COPD due to previous significant smoking history Gm (+) Bacteremia CVA by history CAD HTN Hyperlipdemia Chronic respiratory failure, on BIPAP at home CKD DM Cellulitis PLAN: O2 to maintain saturation BD TX Would monitor off systemic steroids for now BiPAP QHS and PRN [place]-culture ABX per ID Glycemic control No smoking Will follow Thank you. Dr Smalls
[2016-12-27] MEDS: ALBUTEROL SO4 2.5/IPRATROPIUM 0.5 INH SOL 3 ML VIAL.NEB. NEB PRN (22:50)
[2016-12-27] MEDS: ROSUVASTATIN CA 5 MG TABLET (FP) PO SCH (23:31)
[2016-12-27] MEDS: BUDESONIDE/FORMETEROL FUMARATE 160/4.5 mcg INHALER IH SCH (23:32)
[2016-12-28] MEDS: ALBUTEROL SO4 2.5/IPRATROPIUM 0.5 INH SOL 3 ML VIAL.NEB. NEB PRN ×2 (06:10→09:57)
[2016-12-28 08:09] LABS: BASOPHIL 0.2 % (0-2.0); MCH 22.6 pg (25.7-33.7); MCHC 30.4 g/dl (32.0-35.9); MEAN CELL VOLUME 74.3 fl (80-96); MEAN PLT VOLUME 7.7 fl (7.5-11.1); PLATELET COUNT 205 K/MM3 (134-434); RDW 18.9 % (11.9-15.9)
[2016-12-28] MEDS: INSULIN DETEMIR 100 UNITS/ML MDV SQ SCH ×2 (08:32→22:52)
--- NOTE | 2016-12-28 08:56 | PN ---
Progress Note (short form) - Note Progress Note: feels well no fevers Vital Signs Period Temp Pulse Resp BP Sys/Mullen Pulse Ox Last 24 Hr 96.3 F-97.8 F 53-75 18-20 120-145/58-73 96-96 cor-rrr lungs clear abd soft,nt ext erythema, scaly peeling skin unchanged CBC, BMP 12/28/16 05:45 Microbiology 12/26/16 18:00 Blood - Peripheral Venous Blood Culture - Preliminary Pending Organism 12/26/16 17:00 Blood - Peripheral Venous Blood Culture - Preliminary Pending Organism 12/26/16 19:00 Nasopharyngeal Swab Influenza Types A,B Antigen (XU) - Final 12/26/16 19:00 Nasopharyngeal Swab - Final echo - noted a/p strep bacteremia- f/u blood culture id, repeat blood cultures sent today continue vancomycin based on levels (trough pending), continue ceftriaxone ?skin source, await ID of cultures leukocytosis - infection and steroids- steroids stopped yesterday copd OSAS chronic venous stasis- consider wound care followup of legs diabetes THERESA/CKD- f/u labs Problem List - Problems (1) Sepsis Code(s): A41.9 - SEPSIS, UNSPECIFIED ORGANISM (2) Bacteremia due to Gram-positive bacteria Code(s): A49.9 - BACTERIAL INFECTION, UNSPECIFIED (3) THERESA (acute kidney injury) Code(s): N17.9 - ACUTE KIDNEY FAILURE, UNSPECIFIED (4) Chronic respiratory failure with hypoxia and hypercapnia Code(s): J96.21 - ACUTE AND CHRONIC RESPIRATORY FAILURE WITH HYPOXIA J96.22 - ACUTE AND CHRONIC RESPIRATORY FAILURE WITH HYPERCAPNIA (5) Diabetes Code(s): E11.9 - TYPE 2 DIABETES MELLITUS WITHOUT COMPLICATIONS Qualifiers: Diabetes mellitus type: type 2
[2016-12-28] MEDS: NICOTINE 14 MG/24 HOURS TOPICAL PATCH TD SCH (09:20)
[2016-12-28] MEDS: ASPIRIN 81 MG CHEWABLE TABLETS PO SCH (09:20)
[2016-12-28] MEDS: BUDESONIDE/FORMETEROL FUMARATE 160/4.5 mcg INHALER IH SCH ×2 (09:21→22:55)
[2016-12-28] MEDS: CEFTRIAXONE 100 ML IVPB SCH (09:21)
[2016-12-28] MEDS: CLOPIDOGREL BISULFATE 75 MG TABLET (FP) PO SCH (09:21)
[2016-12-28] MEDS: RANITIDINE HCL 150 MG TABLET (FP) PO SCH (09:22)
[2016-12-28] MEDS: CHOLECALCIFEROL (VITAMIN D3) 400 UNIT TABLET (FP) PO SCH (09:22)
[2016-12-28] MEDS: ACLIDINIUM BROMIDE 400 MCG/INH AERO.POWD IH SCH (09:22)
[2016-12-28 09:26] LABS: ALBUMIN 2.6 g/dl (3.4-5.0); ALK PHOS 50 U/L (45-117); ANION GAP 7 (8-16); BILIRUBIN,TOTAL 0.2 mg/dL (0.2-1.0); CALCIUM 8.2 mg/dL (8.5-10.1); CO2 33 mmol/L (21-32); CREATININE 1.2 mg/dL (0.7-1.3); GLUCOSE,RANDOM 166 mg/dL (74-106); SGOT/AST 15 U/L (15-37); SGPT/ALT 13 U/L (12-78); TOT PROT 6.4 g/dl (6.4-8.2)
[2016-12-28] MEDS: TORSEMIDE 5 MG TABLET PO SCH (10:00)
--- NOTE | 2016-12-28 10:24 | PN ---
Progress Note, Physician Chief Complaint: in bed NAD afebrile today labs meds tests reviewed - Current Medication List Current Medications: Active Medications Aclidinium [place] (Tudorza -) 1 puff IH BID [facility] Last Admin: 12/28/16 09:22 Dose: 1 puff Albuterol Sulfate (Ventolin Hfa Inhaler -) 1 puff IH Q6H PRN PRN Reason: ASTHMA Last Admin: 12/27/16 10:03 Dose: 1 puff Albuterol/Ipratropium (Duoneb -) 1 amp NEB QIDR PRN PRN Reason: SHORTNESS OF BREATH Last Admin: 12/28/16 09:57 Dose: 1 amp Aspirin (Asa -) 81 mg PO DAILY [facility] Last Admin: 12/28/16 09:20 Dose: 81 mg Bacitracin (Bacitracin -) 1 applic TP DAILY [facility] Budesonide/Formoterol Fumarate (Symbicort 160/4.5mcg -) 2 puff IH BID [facility] Last Admin: 12/28/16 09:21 Dose: 2 inhaler Cholecalciferol (Vitamin D3 -) 400 unit PO DAILY [facility] Last Admin: 12/28/16 09:22 Dose: 400 unit Clopidogrel Bisulfate (Plavix -) 75 mg PO DAILY [facility] Last Admin: 12/28/16 09:21 Dose: 75 mg Ceftriaxone Sodium (Rocephin 2gm Ivpb (Pre-Docked)) 100 mls @ 200 mls/hr IVPB DAILY [facility] Last Admin: 12/28/16 09:21 Dose: 200 mls/hr Insulin Aspart (Novolog Vial Sliding Scale -) 1 vial SQ ACHS [facility] PRN Reason: Protocol Last Admin: 12/27/16 23:31 Dose: 6 units Insulin Detemir (Levemir Vial) 25 units SQ BID@0700,2200 [facility] Last Admin: 12/28/16 08:32 Dose: 25 units Nicotine (Nicoderm Patch -) 14 mg TD DAILY [facility] Last Admin: 12/28/16 09:20 Dose: 14 mg Ranitidine HCl (Zantac -) 150 mg PO DAILY [facility] Last Admin: 12/28/16 09:22 Dose: 150 mg Rosuvastatin Calcium (Crestor -) 5 mg PO HS [facility] Last Admin: 12/27/16 23:31 Dose: 5 mg Torsemide (Demadex -) 5 mg PO DAILY [facility] Last Admin: 12/27/16 10:00 Dose: 5 mg - Objective Vital Signs: Vital Signs Temperature 97 F L 12/28/16 06:09 Pulse Rate 84 12/28/16 09:56 Respiratory Rate 20 12/28/16 06:09 Blood Pressure 130/70 12/28/16 06:09 O2 Sat by Pulse Oximetry (%) 90 L 12/28/16 09:56 Constitutional: Yes: No Distress, Calm Eyes: Yes: Conjunctiva Clear HENT: Yes: Atraumatic Neck: Yes: Supple Cardiovascular: Yes: Regular Rate and Rhythm Respiratory: Yes: Diminished Gastrointestinal: Yes: Soft, Abdomen, Obese. No: Distention, Tenderness Genitourinary: No: CVA Tenderness - Left, CVA Tenderness - Right Musculoskeletal: No: Joint Stiffness, Joint Swelling Extremities: No: Cold, Cool Edema: Yes Integumentary: Yes: Rash, Venous Stasis Changes (both legs) Neurological: Yes: WNL, Alert, Oriented ...Motor Strength: WNL Psychiatric: Yes: WNL, Alert, Oriented. No: Agitated, Suicidal Ideation Labs: CBC, BMP 12/28/16 05:45 12/28/16 05:45 INR, PTT INR 1.17 (0.82-1.09) H 12/26/16 17:00 - ....Imaging Other: Report Reviewed Assessment/Plan 66 M, advanced COPD (significant smoking) on 3-4 L at home and nocturnal, BIPAP , and bilateral LE venous stasis ulcers followed in wound care, PAD, DM, CHF, HTN, HLD, and CVA. Admitted via the ER due to increased LE edema and erythema. strep bacteremia- f/u blood culture id, repeat blood cultures sent continue vancomycin based on levels (trough pending), continue ceftriaxone ?skin source, await ID of cultures leukocytosis - infection and steroids- steroids stopped yesterday copd OSAS chronic venous stasis- consider wound care followup of legs, vascular sx eval diabetes THERESA/CKD- f/u labs falls, decubs, DVT pfx; legs elevation d/w pt and staff; prognosis guarded d/w pt's PCP dr Ramila Louise
[2016-12-28] MEDS: BACITRACIN 30 GM TUBE TOPICAL OINTMENT TP SCH (11:19)
[2016-12-28] MEDS: INSULIN SLIDING SCALE (NOVOLOG) 1 VIAL SQ SCH ×4 (11:20→22:50)
--- NOTE | 2016-12-28 11:24 | CON.PULM ---
Consult Consult Specialty:: PULMONARY Referred by:: BRUNA Reason for Consultation:: SOB - History of Present Illness Chief Complaint: SOB/COUGH History of Present Illness: The patient is a 66-year-old man with a significant past medical history of hypertension, hypercholesterolemia, cerebrovascular accident, peripheral vascular disease, diabetes mellitus, congestive heart failure, chronic obstructive pulmonary disease (home O2 dependent on 3L) and obesity who presents to the emergency department via EMS for further evaluation of shortness of breath and hypoxia. As per EMS, on arrival, the patient was noted to be 88% on room air, tachycardic to 110 bpm and a temperature of 101.9. The patient has endorsed an intermittent productive cough with yellow phlegm. Upon ER arrival, respiratory was immediately called and patient was placed on BiPAP. Patient is an active smoker - History Source History Provided By: Patient, Medical Record Limitations to Obtaining History: No Limitations - Past Medical History [employer]NER: Yes: CVA (no deficit, 5 years ago) Cardio/Vascular: Yes: CAD, HTN, Hyperlipdemia Pulmonary: Yes: COPD (on CPAP at night), O2 Dependent, Other (Cronic respiratory failure, on BIPAP at home) Renal/: Yes: Renal Failure (chronic) Infectious Disease: Yes: Other (Bilat. leg cellulitis) Endocrine: Yes: Diabetes Mellitus Dermatology: Yes: Cellulitis (in LE), Other (R leg ulcer) - Past Surgical History Past Surgical History: Yes: Stent - Alcohol/Substance Use Hx Alcohol Use: Yes History of Substance Use: reports: None - Smoking History Smoking history: Current every day smoker Have you smoked in the past 12 months: Yes Aproximately how many cigarettes per day: 10 If you are a former smoker, when did you quit?: 6 months - Social History Usual Living Arrangement: With Spouse ADL: Independent Occupation: worked for a [employer] History of Recent Travel: No Home Medications - Allergies Allergies/Adverse Reactions: Allergies Allergy/AdvReac Type Severity Reaction Status Date / Time amoxicillin trihydrate Allergy Unknown Verified 12/26/16 16:33 [From Augmentin] potassium clavulanate Allergy Unknown Verified 12/26/16 16:33 [From Augmentin] - Home Medications Home Medications: Ambulatory Orders Albuterol Sulfate Inhaler - [Ventolin Hfa Inhaler -] 0 puff IH PRN PRN 12/27/16 Aspirin [ASA -] 81 mg PO DAILY 12/27/16 Budesonide/Formeterol Fumarate [SYMBICORT 80/4.5mcg -] 0 inh PO DAILY 12/27/16 Cholecalciferol (Vitamin D3) [Vitamin D3 -] 1 tab PO DAILY 12/27/16 Clopidogrel Bisulfate [Plavix -] 0 mg PO DAILY 12/27/16 Cyanocobalamin (Vitamin B-12) [Vitamin B-12] 1 tab PO DAILY 12/27/16 Insulin (Levemir) [Levemir Vial] 0 units SQ BID 12/27/16 Multivit-Min/Iron Fum/Folic AC [Cvtyj-Rbixgow-Vdlujgor Tablet] 1 each PO DAILY 12/27/16 Rosuvastatin [Crestor -] 0 mg PO HS 12/27/16 Tiotropium [place] [Spiriva] 0 inh PO DAILY 12/27/16 Torsemide 0 mg PO DAILY 12/27/16 Family Disease History - Family Disease History Family Disease History: Diabetes: Daughter Review of Systems - Review of Systems Constitutional: denies: Fever Eyes: denies: Blurred Vision HENT: denies: Difficult Swallowing Neck: denies: Decreased ROM Cardiovascular: denies: Chest Pain Respiratory: reports: Cough, SOB on Exertion, Wheezing. denies: Hemoptysis Gastrointestinal: denies: Abdominal Pain Genitourinary: denies: Burning Physical Exam Vital Sings: Vital Signs Temperature 98 F 12/28/16 09:00 Pulse Rate 84 12/28/16 09:56 Respiratory Rate 20 12/28/16 09:00 Blood Pressure 153/79 12/28/16 09:00 O2 Sat by Pulse Oximetry (%) 90 L 12/28/16 09:56 Constitutional: Yes: Calm Eyes: Yes: EOM Intact HENT: Yes: Normocephalic Neck: Yes: Trachea Midline Cardiovascular: Yes: Regular Rate and Rhythm Respiratory: Yes: Diminished Gastrointestinal: Yes: Soft, Abdomen, Obese Extremities: Yes: Other (lower extremity ulcers) Edema: LLE: 2+, RLE: 2+ Integumentary: Yes: Venous Stasis Changes Labs: CBC, BMP 12/28/16 05:45 12/28/16 05:45 ABG Results ABG pH 7.36 (7.35-7.45) 12/26/16 18:49 ABG pCO2 at Pt Temp 62.9 mmHg (35-45) H* 12/26/16 18:49 ABG pO2 at Pt Temp 110.0 mmHg (80-100) H D 12/26/16 18:49 ABG HCO3 34.5 meq/L (22-26) H 12/26/16 18:49 ABG O2 Sat (Measured) 98.4 % (90-98.9) 12/26/16 18:49 ABG O2 Content 15.1 % vol (15-22) 12/26/16 18:49 ABG Base Excess 7.7 meq/l (-2-2) H 12/26/16 18:49 Imaging - Results Chest X-ray: Image Reviewed Problem List - Problems (1) Cellulitis of both lower extremities Code(s): L03.115 - CELLULITIS OF RIGHT LOWER LIMB L03.116 - CELLULITIS OF LEFT LOWER LIMB (2) Chronic respiratory failure with hypoxia and hypercapnia Code(s): J96.21 - ACUTE AND CHRONIC RESPIRATORY FAILURE WITH HYPOXIA J96.22 - ACUTE AND CHRONIC RESPIRATORY FAILURE WITH HYPERCAPNIA Assessment/Plan 02 supplementation to keep sat greater than 90% bronchodilators/antibiotics smoking cessation consider short course steroids dvt prophylaxsis Ted BUTT MD
[2016-12-28] MEDS ORDERED: ALBUTEROL SO4 6.7 GM HFA INHALER IH PRN (11:26)
--- NOTE | 2016-12-28 15:13 | PN ---
Physical Exam: SUBJECTIVE: Patient seen and examined Patient resting in bed NAD, no acute events. afebrile and hemodynamically stable. Feels well. breathing at baseline, using BIPAP. states his legs feel better. Denies sob, h/a, f/c, abd pain, diarrhea. OBJECTIVE: Vital Signs Period Temp Pulse Resp BP Sys/Mullen Pulse Ox Last 24 Hr 96.3 F-98.2 F 53-85 18-20 120-153/69-79 90-96 GENERAL: Awake, alert, and fully oriented, in no acute distress. HEAD: Normal with no signs of trauma. EYES: Pupils equal, round and reactive to light, extraocular movements intact, sclera anicteric, conjunctiva clear. EARS, NOSE, THROAT: Moist mucous membranes. NECK: supple LUNGS: diffusely restricted breath sounds HEART: Regular rate and rhythm, normal S1 and S2 ABDOMEN: obese, Soft, nontender, not distended, normoactive bowel sounds MUSCULOSKELETAL: No CVA tenderness. UPPER EXTREMITIES: 2+ pulses, No peripheral edema. LOWER EXTREMITIES: 1+ pulses, well-perfused. 2+ edema b/l, red, warm, tender with multiple breaks in skin, malodorous NEUROLOGICAL: Cranial nerves II-XII grossly intact. Normal speech. PSYCHIATRIC: Cooperative. Good eye contact. Appropriate mood and affect. SKIN: lesions as above Laboratory Results - last 24 hr 12/27/16 12/27/16 12/27/16 11:41 16:34 23:21 WBC RBC Hgb Hct MCV MCHC RDW Plt Count MPV Neutrophils % Lymphocytes % Monocytes % Eosinophils % Basophils % ESR Sodium Potassium Chloride Carbon Dioxide Anion Gap BUN Creatinine Creat Clearance w eGFR POC Glucometer [phone] 291 Random Glucose Calcium Total Bilirubin AST ALT Alkaline Phosphatase C-Reactive Protein Total Protein Albumin Random Vancomycin 12/28/16 12/28/16 12/28/16 05:45 05:45 05:45 WBC 18.0 H RBC 4.39 Hgb 9.9 L Hct 32.6 L MCV 74.3 L MCHC 30.4 L RDW 18.9 H Plt Count 205 MPV 7.7 Neutrophils % 95.0 H Lymphocytes % 1.6 L D Monocytes % 3.2 L Eosinophils % 0.0 D Basophils % 0.2 ESR Sodium 140 Potassium 4.6 Chloride 100 Carbon Dioxide 33 H Anion Gap 7 L BUN 34 H D Creatinine 1.2 D Creat Clearance w eGFR > 60 POC Glucometer Random Glucose 166 H Calcium 8.2 L Total Bilirubin 0.2 D AST 15 ALT 13 Alkaline Phosphatase 50 C-Reactive Protein Total Protein 6.4 Albumin 2.6 L Random Vancomycin 11.869 12/28/16 12/28/16 05:45 05:45 WBC RBC Hgb Hct MCV MCHC RDW Plt Count MPV Neutrophils % Lymphocytes % Monocytes % Eosinophils % Basophils % ESR 33 H Sodium Potassium Chloride Carbon Dioxide Anion Gap BUN Creatinine Creat Clearance w eGFR POC Glucometer Random Glucose Calcium Total Bilirubin AST ALT Alkaline Phosphatase C-Reactive Protein 8.2 H D Total Protein Albumin Random Vancomycin Active Medications Generic Name Dose Route Start Last Admin Trade Name Freq PRN Reason Stop Dose Admin Albuterol Sulfate 1 puff 12/28/16 11:26 Ventolin Hfa Inhaler - IH Q4H PRN ASTHMA Albuterol/Ipratropium 1 amp 12/28/16 12:00 Duoneb - NEB QIDR RAJESH Aspirin 81 mg 12/27/16 10:00 12/28/16 09:20 Asa - PO 81 mg DAILY RAJESH Administration Bacitracin 1 applic 12/28/16 10:45 12/28/16 11:19 Bacitracin - TP 1 applic DAILY RAJESH Administration Budesonide/Formoterol Fumarate 2 puff 12/27/16 22:00 12/28/16 09:21 Symbicort 160/4.5mcg - IH 2 inhaler BID RAJESH Administration Cholecalciferol 400 unit 12/27/16 10:00 12/28/16 09:22 Vitamin D3 - PO 400 unit DAILY RAJESH Administration Clopidogrel Bisulfate 75 mg 12/27/16 10:00 12/28/16 09:21 Plavix - PO 75 mg DAILY RAJESH Administration Ceftriaxone Sodium 100 mls @ 200 mls/hr 12/28/16 06:40 12/28/16 09:21 Rocephin 2gm Ivpb (Pre-Docked) IVPB 200 mls/hr DAILY RAJESH Administration Insulin Aspart 1 vial 12/27/16 07:00 12/28/16 11:20 Novolog Vial Sliding Scale - SQ 6 units ACHS RAJESH Administration Protocol Insulin Detemir 25 units 12/28/16 08:30 12/28/16 08:32 Levemir Vial SQ 25 units BID@0700,2200 RAJESH Administration Nicotine 14 mg 12/27/16 10:00 12/28/16 09:20 Nicoderm Patch - TD 14 mg DAILY RAJESH Administration Ranitidine HCl 150 mg 12/27/16 10:00 12/28/16 09:22 Zantac - PO 150 mg DAILY RAJESH Administration Rosuvastatin Calcium 5 mg 12/27/16 22:00 12/27/16 23:31 Crestor - PO 5 mg HS RAJESH Administration Torsemide 5 mg 12/27/16 10:00 12/28/16 10:00 Demadex - PO 5 mg DAILY RAJESH Administration ASSESSMENT/PLAN: COPD -on chronic O2 -abg suggestive of chronic CO2 retention -CXR no acute process or change from previous study -no increase on O2 demand -no apparent exacerbation -continue NC O2 and BIPAP as needed -continue home albuterol, symbicort, tudorza Sepsis due to Gram posistive bacteremia -LE cellulitis likely source, strep -cultures + Gram posistive cocci in chains -ID consult appreciated -repeat cultures p/d, esr p/d crp elevated , stool guaiac, urine culture -rocpatrizian -recommend vascular wound care consult. DM -abdirashid saldaña sliding scale Dispo: We will continue to follow the patient. Thank you for this consultative opportunity. Problem List - Problems (1) Bacteremia due to Gram-positive bacteria Code(s): A49.9 - BACTERIAL INFECTION, UNSPECIFIED (2) Cellulitis of both lower extremities Code(s): L03.115 - CELLULITIS OF RIGHT LOWER LIMB L03.116 - CELLULITIS OF LEFT LOWER LIMB (3) Chronic renal disease Code(s): N18.9 - CHRONIC KIDNEY DISEASE, UNSPECIFIED (4) Sepsis Code(s): A41.9 - SEPSIS, UNSPECIFIED ORGANISM (5) Chronic respiratory failure with hypoxia and hypercapnia Code(s): J96.21 - ACUTE AND CHRONIC RESPIRATORY FAILURE WITH HYPOXIA J96.22 - ACUTE AND CHRONIC RESPIRATORY FAILURE WITH HYPERCAPNIA (6) THERESA (acute kidney injury) Code(s): N17.9 - ACUTE KIDNEY FAILURE, UNSPECIFIED (7) CAD (coronary artery disease) Code(s): I25.10 - ATHSCL HEART DISEASE OF [place] CORONARY ARTERY W/O ANG PCTRS (8) COPD (chronic obstructive pulmonary disease) Code(s): J44.9 - CHRONIC OBSTRUCTIVE PULMONARY DISEASE, UNSPECIFIED Qualifiers : COPD type: COPD with acute exacerbation Qualified Code(s): J44.1 - Chronic obstructive pulmonary disease with (acute) exacerbation (9) CVA (cerebral vascular accident) Code(s): I63.9 - CEREBRAL INFARCTION, UNSPECIFIED (10) Cellulitis Code(s): L03.90 - CELLULITIS, UNSPECIFIED Qualifiers: Site of cellulitis of extremity: lower extremity Laterality: unspecified laterality (11) Chronic venous stasis dermatitis of both lower extremities Code(s): I83.11 - VARICOSE VEINS OF RIGHT LOWER EXTREMITY WITH INFLAMMATION I83.12 - VARICOSE VEINS OF LEFT LOWER EXTREMITY WITH INFLAMMATION (12) Fever Code(s): R50.9 - FEVER, UNSPECIFIED Qualifiers: Fever type: other Qualified Code(s): R50.81 - Fever presenting with conditions classified elsewhere (13) HTN (hypertension) Code(s): I10 - ESSENTIAL (PRIMARY) HYPERTENSION (14) Obesity Code(s): E66.9 - OBESITY, UNSPECIFIED (15) Diabetes Code(s): E11.9 - TYPE 2 DIABETES MELLITUS WITHOUT COMPLICATIONS Qualifiers: Diabetes mellitus type: type 2 (16) Diabetes mellitus, insulin dependent (IDDM), uncontrolled Code(s): E10.65 - TYPE 1 DIABETES MELLITUS WITH HYPERGLYCEMIA (17) Morbid obesity Code(s): E66.01 - MORBID (SEVERE) OBESITY DUE TO EXCESS CALORIES (18) MARTIN treated with BiPAP Code(s): G47.33 - OBSTRUCTIVE SLEEP APNEA (ADULT) (PEDIATRIC) Visit type - Emergency Visit Emergency Visit: Yes ED Registration Date: 12/26/16 Care time: The patient presented to the Emergency Department on the above date and was hospitalized for further evaluation of their emergent condition. - New Patient This patient is new to me today: No - Critical Care Critical Care patient: No - Discharge Referral Referred to [facility] Med P.C.: No
[2016-12-28] MEDS: ALBUTEROL SO4 2.5/IPRATROPIUM 0.5 INH SOL 3 ML VIAL.NEB. NEB SCH (18:25)
--- NOTE | 2016-12-28 19:51 | PN ---
Progress Note (short form) - Note Progress Note: Vascular Surgery Pt seen and examined. Cellulitis bilateral lower ext Well known to vascular service. Xeroform and DANE bandages to bilateral lower ext. IV antibiotics. Teofilo Cordon DO
[2016-12-28] MEDS: ROSUVASTATIN CA 5 MG TABLET (FP) PO SCH (22:54)
[2016-12-29] MEDS: ALBUTEROL SO4 2.5/IPRATROPIUM 0.5 INH SOL 3 ML VIAL.NEB. NEB SCH ×6 (00:09→23:03)
[2016-12-29] MEDS: INSULIN SLIDING SCALE (NOVOLOG) 1 VIAL SQ SCH ×5 (06:42→21:39)
[2016-12-29] MEDS: INSULIN DETEMIR 100 UNITS/ML MDV SQ SCH ×2 (06:44→21:40)
[2016-12-29 07:58] LABS: BASOPHIL 0.1 % (0-2.0); EOSINOPHIL 0.2 % (0-4.5); MCH 22.4 pg (25.7-33.7); MCHC 30.7 g/dl (32.0-35.9); MEAN CELL VOLUME 73.1 fl (80-96); NEUTROPHILS 90.8 % (42.8-82.8); PLATELET COUNT 197 K/MM3 (134-434); RDW 18.8 % (11.9-15.9); WHITE BLOOD COUNT 14.3 K/mm3 (4.0-10.0)
[2016-12-29 08:24] LABS: ALBUMIN 2.4 g/dl (3.4-5.0); ANION GAP 4 (8-16); CALCIUM 8.1 mg/dL (8.5-10.1); CO2 35 mmol/L (21-32); CREATININE 1.1 mg/dL (0.7-1.3); GLUCOSE,RANDOM 88 mg/dL (74-106); SGOT/AST 12 U/L (15-37); SGPT/ALT 11 U/L (12-78)
[2016-12-29 08:25] LABS: ALK PHOS 47 U/L (45-117); BILIRUBIN,TOTAL 0.3 mg/dL (0.2-1.0)
[2016-12-29 08:34] LABS: C-REACTIVE PROTEIN 7.7 MG/DL (0.00-0.3)
--- NOTE | 2016-12-29 09:05 | PN ---
Progress Note, Physician History of Present Illness: Pt w/o fever, SOB, CP, abd pain. Pt with bilat. leg pain - Current Medication List Current Medications: Active Medications Albuterol Sulfate (Ventolin Hfa Inhaler -) 1 puff IH Q4H PRN PRN Reason: ASTHMA Albuterol/Ipratropium (Duoneb -) 1 amp NEB QIDR [facility] Last Admin: 12/29/16 05:55 Dose: 1 amp Aspirin (Asa -) 81 mg PO DAILY [facility] Last Admin: 12/28/16 09:20 Dose: 81 mg Bacitracin (Bacitracin -) 1 applic TP DAILY [facility] Last Admin: 12/28/16 11:19 Dose: 1 applic Budesonide/Formoterol Fumarate (Symbicort 160/4.5mcg -) 2 puff IH BID [facility] Last Admin: 12/28/16 22:55 Dose: 2 inhaler Cholecalciferol (Vitamin D3 -) 400 unit PO DAILY [facility] Last Admin: 12/28/16 09:22 Dose: 400 unit Clopidogrel Bisulfate (Plavix -) 75 mg PO DAILY [facility] Last Admin: 12/28/16 09:21 Dose: 75 mg Ceftriaxone Sodium (Rocephin 2gm Ivpb (Pre-Docked)) 100 mls @ 200 mls/hr IVPB DAILY [facility] Last Admin: 12/28/16 09:21 Dose: 200 mls/hr Insulin Aspart (Novolog Vial Sliding Scale -) 1 vial SQ ACHS [facility] PRN Reason: Protocol Last Admin: 12/29/16 06:42 Dose: Not Given Insulin Detemir (Levemir Vial) 25 units SQ BID@0700,2200 [facility] Last Admin: 12/29/16 06:44 Dose: 25 units Nicotine (Nicoderm Patch -) 14 mg TD DAILY [facility] Last Admin: 12/28/16 09:20 Dose: 14 mg Ranitidine HCl (Zantac -) 150 mg PO DAILY [facility] Last Admin: 12/28/16 09:22 Dose: 150 mg Rosuvastatin Calcium (Crestor -) 5 mg PO HS [facility] Last Admin: 12/28/16 22:54 Dose: 5 mg Torsemide (Demadex -) 5 mg PO DAILY [facility] Last Admin: 12/28/16 10:00 Dose: 5 mg - Objective Vital Signs: Vital Signs Temperature 98.2 F 12/29/16 06:00 Pulse Rate 90 12/29/16 06:00 Respiratory Rate 20 12/29/16 06:00 Blood Pressure 149/80 12/29/16 06:00 O2 Sat by Pulse Oximetry (%) 100 12/28/16 21:00 Constitutional: Yes: No Distress, Calm Cardiovascular: Yes: Regular Rate and Rhythm, S1, S2 Respiratory: Yes: Regular, CTA Bilaterally. No: Rales Gastrointestinal: Yes: Normal Bowel Sounds, Soft, Abdomen, Obese. No: Tenderness Edema: No Neurological: Yes: Alert, Oriented Labs: CBC, BMP 12/29/16 06:00 12/29/16 06:00 INR, PTT INR 1.17 (0.82-1.09) H 12/26/16 17:00 Problem List - Problems (1) Sepsis Assessment/Plan: on IV Abtx ID consult appreciated f/u BCX ( negative so far), UCX Code(s): A41.9 - SEPSIS, UNSPECIFIED ORGANISM (2) Bacteremia due to Gram-positive bacteria Assessment/Plan: Vasc Sx consult appreciated Code(s): A49.9 - BACTERIAL INFECTION, UNSPECIFIED (3) Cellulitis of both lower extremities Code(s): L03.115 - CELLULITIS OF RIGHT LOWER LIMB L03.116 - CELLULITIS OF LEFT LOWER LIMB (4) Acute and chronic respiratory failure with hypercapnia Assessment/Plan: Cont BIPAP- as much as tolerated. Pulmonary consult Admitt to monitor bed. Solumedrol Code(s): J96.22 - ACUTE AND CHRONIC RESPIRATORY FAILURE WITH HYPERCAPNIA (5) Chronic respiratory failure with hypoxia and hypercapnia Assessment/Plan: Cont BIPAP- as much as tolerated Code(s): J96.21 - ACUTE AND CHRONIC RESPIRATORY FAILURE WITH HYPOXIA J96.22 - ACUTE AND CHRONIC RESPIRATORY FAILURE WITH HYPERCAPNIA (6) PVD (peripheral vascular disease) Code(s): I73.9 - PERIPHERAL VASCULAR DISEASE, UNSPECIFIED (7) HTN (hypertension) Code(s): I10 - ESSENTIAL (PRIMARY) HYPERTENSION (8) Diabetes mellitus, insulin dependent (IDDM), uncontrolled Assessment/Plan: TO monitor BGMs Code(s): E10.65 - TYPE 1 DIABETES MELLITUS WITH HYPERGLYCEMIA (9) Morbid obesity Code(s): E66.01 - MORBID (SEVERE) OBESITY DUE TO EXCESS CALORIES (10) Chronic renal disease Assessment/Plan: Creatinine trending up. Light IV hydration Code(s): N18.9 - CHRONIC KIDNEY DISEASE, UNSPECIFIED Assessment/Plan DVT proph AM labs
--- NOTE | 2016-12-29 09:36 | PN ---
Progress Note (short form) - Note Progress Note: Feels OK. Breathing appears at baseline. Used PAP therapy overnight without issues. No CP or SOB. Intake & Output 12/26/16 12/27/16 12/28/16 12/29/16 23:59 23:59 23:59 23:59 Intake Total 740 400 Output Total 640 400 400 Balance 100 0 -400 Weight 360 lb 359 lb 15.991 oz Last Vital Signs Temp Pulse Resp BP Pulse Ox 98.2 F 90 20 149/80 100 12/29/16 06:00 12/29/16 06:00 12/29/16 06:00 12/29/16 06:00 12/28/16 21:00 Active Medications Albuterol Sulfate (Ventolin Hfa Inhaler -) 1 puff IH Q4H PRN PRN Reason: ASTHMA Albuterol/Ipratropium (Duoneb -) 1 amp NEB QIDR [facility] Last Admin: 12/29/16 05:55 Dose: 1 amp Aspirin (Asa -) 81 mg PO DAILY [facility] Last Admin: 12/28/16 09:20 Dose: 81 mg Bacitracin (Bacitracin -) 1 applic TP DAILY [facility] Last Admin: 12/28/16 11:19 Dose: 1 applic Budesonide/Formoterol Fumarate (Symbicort 160/4.5mcg -) 2 puff IH BID [facility] Last Admin: 12/28/16 22:55 Dose: 2 inhaler Cholecalciferol (Vitamin D3 -) 400 unit PO DAILY [facility] Last Admin: 12/28/16 09:22 Dose: 400 unit Clopidogrel Bisulfate (Plavix -) 75 mg PO DAILY [facility] Last Admin: 12/28/16 09:21 Dose: 75 mg Ceftriaxone Sodium (Rocephin 2gm Ivpb (Pre-Docked)) 100 mls @ 200 mls/hr IVPB DAILY [facility] Last Admin: 12/28/16 09:21 Dose: 200 mls/hr Insulin Aspart (Novolog Vial Sliding Scale -) 1 vial SQ ACHS [facility] PRN Reason: Protocol Last Admin: 12/29/16 06:42 Dose: Not Given Insulin Detemir (Levemir Vial) 25 units SQ BID@0700,2200 [facility] Last Admin: 12/29/16 06:44 Dose: 25 units Nicotine (Nicoderm Patch -) 14 mg TD DAILY [facility] Last Admin: 12/28/16 09:20 Dose: 14 mg Ranitidine HCl (Zantac -) 150 mg PO DAILY [facility] Last Admin: 12/28/16 09:22 Dose: 150 mg Rosuvastatin Calcium (Crestor -) 5 mg PO HS [facility] Last Admin: 12/28/16 22:54 Dose: 5 mg Torsemide (Demadex -) 5 mg PO DAILY [facility] Last Admin: 12/28/16 10:00 Dose: 5 mg GENERAL: Awake, alert, and fully oriented, NAD HEAD: Normal with no signs of trauma. EYES: sclera anicteric, conjunctiva clear. EARS, NOSE, THROAT: Moist mucous membranes. NECK: supple LUNGS: decreased BS at the bases, few rhonchi HEART: Regular rate and rhythm, normal S1 and S2 ABDOMEN: obese, Soft, nontender, not distended, normoactive bowel sounds MUSCULOSKELETAL: No CVA tenderness. UPPER EXTREMITIES: 2+ pulses, No peripheral edema. LOWER EXTREMITIES: 1+ pulses, well-perfused. 2+ edema b/l, red, warm, tender with multiple breaks in skin, malodorous NEUROLOGICAL: Non-focal PSYCHIATRIC: Cooperative. Good eye contact. Appropriate mood and affect. SKIN: lesions as above Laboratory Results - last 24 hr 12/28/16 12/29/16 12/29/16 05:45 06:00 06:00 WBC 14.3 H RBC 4.38 Hgb 9.8 L Hct 32.0 L MCV 73.1 L MCHC 30.7 L RDW 18.8 H Plt Count 197 MPV 8.0 Neutrophils % 90.8 H Lymphocytes % 3.6 L D Monocytes % 5.3 Eosinophils % 0.2 D Basophils % 0.1 ESR 33 H Sodium 139 Potassium 4.6 Chloride 100 Carbon Dioxide 35 H Anion Gap 4 L BUN 25 H D Creatinine 1.1 Creat Clearance w eGFR > 60 Random Glucose 88 D Calcium 8.1 L Total Bilirubin 0.3 D AST 12 L ALT 11 L Alkaline Phosphatase 47 C-Reactive Protein 7.7 H D Total Protein 6.0 L Albumin 2.4 L 12/29/16 06:00 WBC RBC Hgb Hct MCV MCHC RDW Plt Count MPV Neutrophils % Lymphocytes % Monocytes % Eosinophils % Basophils % ESR Sodium Potassium Chloride Carbon Dioxide Anion Gap BUN Creatinine Creat Clearance w eGFR Random Glucose Calcium Total Bilirubin AST ALT Alkaline Phosphatase C-Reactive Protein Cancelled Total Protein Albumin ASSESSMENT/PLAN: O2 dependent COPD due to previous significant smoking history Gm (+) Bacteremia CVA by history CAD HTN Hyperlipdemia Chronic respiratory failure, on BIPAP at home CKD DM Cellulitis PLAN: O2 to maintain saturation BD TX Would continue to monitor off systemic steroids BiPAP QHS and PRN ABX per ID No smoking Dr Smalls
[2016-12-29] MEDS: ASPIRIN 81 MG CHEWABLE TABLETS PO SCH (10:03)
[2016-12-29] MEDS: CLOPIDOGREL BISULFATE 75 MG TABLET (FP) PO SCH (10:03)
[2016-12-29] MEDS: CEFTRIAXONE 100 ML IVPB SCH (10:03)
[2016-12-29] MEDS: CHOLECALCIFEROL (VITAMIN D3) 400 UNIT TABLET (FP) PO SCH (10:03)
[2016-12-29] MEDS: NICOTINE 14 MG/24 HOURS TOPICAL PATCH TD SCH (10:04)
[2016-12-29] MEDS: RANITIDINE HCL 150 MG TABLET (FP) PO SCH (10:04)
[2016-12-29] MEDS: TORSEMIDE 5 MG TABLET PO SCH (10:04)
[2016-12-29] MEDS: BUDESONIDE/FORMETEROL FUMARATE 160/4.5 mcg INHALER IH SCH ×2 (10:05→21:41)
[2016-12-29] MEDS: BACITRACIN 30 GM TUBE TOPICAL OINTMENT TP SCH (10:06)
--- NOTE | 2016-12-29 10:52 | EKG ---
Test Reason : Blood Pressure : / mmHG Vent. Rate : 104 BPM Atrial Rate : 110 BPM P-R Int : 000 ms QRS Dur : 142 ms QT Int : 380 ms P-R-T Axes : 000 -21 072 degrees QTc Int : 499 ms POOR DATA QUALITY, INTERPRETATION MAY BE ADVERSELY AFFECTED SINUS TACHYCARDIA WITH 1ST DEGREE A-V BLOCK LEFT BUNDLE BRANCH BLOCK ABNORMAL ECG Confirmed by ARACELIS HORNE MD ([id number]) on 12/29/2016 10:51:41 AM Referred By: Confirmed By:ARACELIS HORNE MD
--- NOTE | 2016-12-29 11:00 | PN ---
Progress Note (short form) - Note Progress Note: clinically improved Vital Signs Period Temp Pulse Resp BP Sys/Mullen Pulse Ox Last 24 Hr 98.2 F-99.0 F 83-98 20-22 149-157/74-80 92-100 cor-rrr lungs clear abd soft,nt ext bilateral clifton wraps CBC, BMP 12/29/16 06:00 12/29/16 06:00 Laboratory Tests 12/28/16 12/29/16 05:45 06:00 ESR 33 H C-Reactive Protein 7.7 H D Microbiology 12/26/16 18:00 Blood - Peripheral Venous Blood Culture - Final Beta Hem Streptococcus Group G 12/26/16 17:00 Blood - Peripheral Venous Blood Culture - Final Beta Hem Streptococcus Group G 12/28/16 07:15 Blood - Peripheral Venous Blood Culture - Preliminary NO GROWTH OBTAINED AFTER 24 HOURS, INCUBATION TO CONTINUE FOR 4 DAYS. 12/28/16 05:45 Blood - Peripheral Venous Blood Culture - Preliminary NO GROWTH OBTAINED AFTER 24 HOURS, INCUBATION TO CONTINUE FOR 4 DAYS. 12/26/16 19:00 Nasopharyngeal Swab Respiratory Virus Panel - Preliminary 12/26/16 19:00 Nasopharyngeal Swab Influenza Types A,B Antigen (XU) - Final 12/26/16 19:00 Nasopharyngeal Swab - Final a/p group G strep bacteremia- source most likely is his legs- recurrent cellulitis acute presentation - was well that morning and confused that evening with fever and rapidly improved, repeat cultures are negative continue rocephin- plan total 14 days ceftriaxone since last positive culture- leukocytosis improving management of venous stasis per vascular OSAS/COPD Problem List - Problems (1) Sepsis Code(s): A41.9 - SEPSIS, UNSPECIFIED ORGANISM (2) Bacteremia due to Gram-positive bacteria Code(s): A49.9 - BACTERIAL INFECTION, UNSPECIFIED (3) THERESA (acute kidney injury) Code(s): N17.9 - ACUTE KIDNEY FAILURE, UNSPECIFIED (4) Chronic respiratory failure with hypoxia and hypercapnia Code(s): J96.21 - ACUTE AND CHRONIC RESPIRATORY FAILURE WITH HYPOXIA J96.22 - ACUTE AND CHRONIC RESPIRATORY FAILURE WITH HYPERCAPNIA (5) Diabetes Code(s): E11.9 - TYPE 2 DIABETES MELLITUS WITHOUT COMPLICATIONS Qualifiers: Diabetes mellitus type: type 2
[2016-12-29] MEDS ORDERED: INSULIN (NOVOLOG) ASPART 100 UNITS/ML 10ML VIAL ONE (18:02)
[2016-12-29] MEDS ORDERED: PT OWN MED DRAWER 7, Y5N ONE (21:36)
[2016-12-29] MEDS: ROSUVASTATIN CA 5 MG TABLET (FP) PO SCH (21:41)
[2016-12-30] MEDS: ALBUTEROL SO4 2.5/IPRATROPIUM 0.5 INH SOL 3 ML VIAL.NEB. NEB SCH ×4 (06:37→23:51)
[2016-12-30] MEDS: INSULIN SLIDING SCALE (NOVOLOG) 1 VIAL SQ SCH ×4 (06:50→21:40)
[2016-12-30] MEDS: INSULIN DETEMIR 100 UNITS/ML MDV SQ SCH ×2 (06:57→21:40)
[2016-12-30 08:47] LABS: CALCIUM 8.4 mg/dL (8.5-10.1)
[2016-12-30 08:52] LABS: MCH 22.9 pg (25.7-33.7); MCHC 30.8 g/dl (32.0-35.9); MEAN CELL VOLUME 74.4 fl (80-96); MEAN PLT VOLUME 7.7 fl (7.5-11.1); PLATELET COUNT 175 K/MM3 (134-434); RDW 18.9 % (11.9-15.9); WHITE BLOOD COUNT 8.6 K/mm3 (4.0-10.0)
[2016-12-30 08:52] LABS: CREATININE 0.9 mg/dL (0.7-1.3)
--- NOTE | 2016-12-30 09:34 | PN ---
Progress Note, Physician History of Present Illness: Pt w/o fever, SOB, CP, abd pain. Pt with bilat. leg pain, improving. - Current Medication List Current Medications: Active Medications Albuterol Sulfate (Ventolin Hfa Inhaler -) 1 puff IH Q4H PRN PRN Reason: ASTHMA Albuterol/Ipratropium (Duoneb -) 1 amp NEB QIDR [facility] Last Admin: 12/30/16 06:37 Dose: 1 amp Aspirin (Asa -) 81 mg PO DAILY [facility] Last Admin: 12/29/16 10:03 Dose: 81 mg Bacitracin (Bacitracin -) 1 applic TP DAILY [facility] Last Admin: 12/29/16 10:06 Dose: 1 applic Budesonide/Formoterol Fumarate (Symbicort 160/4.5mcg -) 2 puff IH BID [facility] Last Admin: 12/29/16 21:41 Dose: 2 inhaler Cholecalciferol (Vitamin D3 -) 400 unit PO DAILY [facility] Last Admin: 12/29/16 10:03 Dose: 400 unit Clopidogrel Bisulfate (Plavix -) 75 mg PO DAILY [facility] Last Admin: 12/29/16 10:03 Dose: 75 mg Ceftriaxone Sodium (Rocephin 2gm Ivpb (Pre-Docked)) 100 mls @ 200 mls/hr IVPB DAILY [facility] Last Admin: 12/29/16 10:03 Dose: 200 mls/hr Insulin Aspart (Novolog Vial Sliding Scale -) 1 vial SQ ACHS [facility] PRN Reason: Protocol Last Admin: 12/30/16 06:50 Dose: Not Given Insulin Detemir (Levemir Vial) 25 units SQ BID@0700,2200 [facility] Last Admin: 12/30/16 06:57 Dose: 25 units Nicotine (Nicoderm Patch -) 14 mg TD DAILY [facility] Last Admin: 12/29/16 10:04 Dose: 14 mg Ranitidine HCl (Zantac -) 150 mg PO DAILY [facility] Last Admin: 12/29/16 10:04 Dose: 150 mg Rosuvastatin Calcium (Crestor -) 5 mg PO HS [facility] Last Admin: 12/29/16 21:41 Dose: 5 mg Torsemide (Demadex -) 5 mg PO DAILY [facility] Last Admin: 12/29/16 10:04 Dose: 5 mg - Objective Vital Signs: Vital Signs Temperature 97.8 F 12/30/16 07:54 Pulse Rate 70 12/30/16 07:54 Respiratory Rate 20 12/30/16 07:54 Blood Pressure 142/76 12/30/16 07:54 O2 Sat by Pulse Oximetry (%) 95 12/30/16 07:37 Constitutional: Yes: No Distress, Calm Cardiovascular: Yes: Regular Rate and Rhythm, S1, S2 Respiratory: Yes: Regular, CTA Bilaterally. No: Rales Gastrointestinal: Yes: Normal Bowel Sounds, Soft. No: Palpable Mass, Tenderness Edema: LLE: 1+, RLE: 1+ Integumentary: Yes: Erythema (bilat. legs), Rash (bilat. legs), Skin Tear ( bilat. legs) Neurological: Yes: Alert, Oriented Labs: CBC, BMP 12/30/16 08:00 12/30/16 06:00 INR, PTT INR 1.17 (0.82-1.09) H 12/26/16 17:00 Problem List - Problems (1) Sepsis Assessment/Plan: on IV Abtx- needs totoal of 14 days of IV abtx. ID consult appreciated BCX ( + for Steep group B), UCX is negative Code(s): A41.9 - SEPSIS, UNSPECIFIED ORGANISM (2) Bacteremia due to Gram-positive bacteria Assessment/Plan: Vasc Sx consult appreciated Code(s): A49.9 - BACTERIAL INFECTION, UNSPECIFIED (3) Cellulitis of both lower extremities Code(s): L03.115 - CELLULITIS OF RIGHT LOWER LIMB L03.116 - CELLULITIS OF LEFT LOWER LIMB (4) Acute and chronic respiratory failure with hypercapnia Assessment/Plan: Cont BIPAP- as much as tolerated. Pulmonary consult appreciated Stable Code(s): J96.22 - ACUTE AND CHRONIC RESPIRATORY FAILURE WITH HYPERCAPNIA (5) Chronic respiratory failure with hypoxia and hypercapnia Assessment/Plan: Cont BIPAP- as much as tolerated Code(s): J96.21 - ACUTE AND CHRONIC RESPIRATORY FAILURE WITH HYPOXIA J96.22 - ACUTE AND CHRONIC RESPIRATORY FAILURE WITH HYPERCAPNIA (6) PVD (peripheral vascular disease) Code(s): I73.9 - PERIPHERAL VASCULAR DISEASE, UNSPECIFIED (7) HTN (hypertension) Code(s): I10 - ESSENTIAL (PRIMARY) HYPERTENSION (8) Diabetes mellitus, insulin dependent (IDDM), uncontrolled Assessment/Plan: To monitor BGMs Code(s): E10.65 - TYPE 1 DIABETES MELLITUS WITH HYPERGLYCEMIA (9) Morbid obesity Code(s): E66.01 - MORBID (SEVERE) OBESITY DUE TO EXCESS CALORIES (10) Chronic renal disease Assessment/Plan: Stable Code(s): N18.9 - CHRONIC KIDNEY DISEASE, UNSPECIFIED Assessment/Plan I spoke with tp had he might need to go to a rehab/ NH. Pt asked me to talk w his ; I called her and felt message to call me back. DVT proph AM labs
[2016-12-30] MEDS ORDERED: PT OWN MED DRAWER 7, Y5N ONE ×2 (10:18→21:23)
[2016-12-30] MEDS: TORSEMIDE 5 MG TABLET PO SCH (10:29)
[2016-12-30] MEDS: ASPIRIN 81 MG CHEWABLE TABLETS PO SCH (10:29)
[2016-12-30] MEDS: CLOPIDOGREL BISULFATE 75 MG TABLET (FP) PO SCH (10:29)
[2016-12-30] MEDS: CHOLECALCIFEROL (VITAMIN D3) 400 UNIT TABLET (FP) PO SCH (10:30)
[2016-12-30] MEDS: CEFTRIAXONE 100 ML IVPB SCH (10:30)
[2016-12-30] MEDS: RANITIDINE HCL 150 MG TABLET (FP) PO SCH (10:30)
[2016-12-30] MEDS: BACITRACIN 30 GM TUBE TOPICAL OINTMENT TP SCH (10:31)
[2016-12-30] MEDS: NICOTINE 14 MG/24 HOURS TOPICAL PATCH TD SCH (10:31)
[2016-12-30] MEDS: BUDESONIDE/FORMETEROL FUMARATE 160/4.5 mcg INHALER IH SCH ×2 (10:31→21:41)
--- NOTE | 2016-12-30 12:43 | PN ---
Progress Note (short form) - Note Progress Note: clinically improved resting comfortably Vital Signs Period Temp Pulse Resp BP Sys/Mullen Pulse Ox Last 24 Hr 97.5 F-98.4 F 68-92 18-20 142-164/76-82 95-100 cor-rrr lungs clear abd soft,nt ext wrapped CBC, BMP 12/30/16 08:00 12/30/16 06:00 Microbiology 12/28/16 07:15 Blood - Peripheral Venous Blood Culture - Preliminary NO GROWTH OBTAINED AFTER 48 HOURS, INCUBATION TO CONTINUE FOR 3 DAYS. 12/28/16 05:45 Blood - Peripheral Venous Blood Culture - Preliminary NO GROWTH OBTAINED AFTER 48 HOURS, INCUBATION TO CONTINUE FOR 3 DAYS. 12/26/16 18:00 Blood - Peripheral Venous Blood Culture - Final Beta Hem Streptococcus Group G 12/28/16 08:10 Urine - Urine Clean Catch Urine Culture - Final NO GROWTH OBTAINED 12/26/16 17:00 Blood - Peripheral Venous Blood Culture - Final Beta Hem Streptococcus Group G 12/26/16 19:00 Nasopharyngeal Swab Respiratory Virus Panel - Preliminary 12/26/16 19:00 Nasopharyngeal Swab Influenza Types A,B Antigen (XU) - Final 12/26/16 19:00 Nasopharyngeal Swab - Final a/p group g bacteremia secondary to bilateral cellulitis/venous stasis plan 14 days rocephin d/w Dr Noemy rios copd-home oxygen please call back if needed a/p group G strep bacteremia- source most likely is his legs- recurrent cellulitis acute presentation - was well that morning and confused that evening with fever and rapidly improved, repeat cultures are negative continue rocephin- plan total 14 days ceftriaxone since last positive culture- leukocytosis improving management of venous stasis per vascular OSAS/COPD Problem List - Problems (1) Sepsis Code(s): A41.9 - SEPSIS, UNSPECIFIED ORGANISM (2) Bacteremia due to Gram-positive bacteria Code(s): A49.9 - BACTERIAL INFECTION, UNSPECIFIED (3) THERESA (acute kidney injury) Code(s): N17.9 - ACUTE KIDNEY FAILURE, UNSPECIFIED (4) Chronic respiratory failure with hypoxia and hypercapnia Code(s): J96.21 - ACUTE AND CHRONIC RESPIRATORY FAILURE WITH HYPOXIA J96.22 - ACUTE AND CHRONIC RESPIRATORY FAILURE WITH HYPERCAPNIA (5) Diabetes Code(s): E11.9 - TYPE 2 DIABETES MELLITUS WITHOUT COMPLICATIONS Qualifiers: Diabetes mellitus type: type 2
--- NOTE | 2016-12-30 13:47 | PN ---
Progress Note (short form) - Note Progress Note: PULMONARY RESTING COMFORTABLY VSS ANICTERIC DISTANT B/L BREATH SOUNDS S1S2 OBESE LOWER EXT B/L ULCERS/BANDAGED LABS/MEDS/NOTES/IMAGING/REVIEWED (1) Cellulitis of both lower extremities Code(s): L03.115 - CELLULITIS OF RIGHT LOWER LIMB L03.116 - CELLULITIS OF LEFT LOWER LIMB (2) Chronic respiratory failure with hypoxia and hypercapnia Code(s): J96.21 - ACUTE AND CHRONIC RESPIRATORY FAILURE WITH HYPOXIA J96.22 - ACUTE AND CHRONIC RESPIRATORY FAILURE WITH HYPERCAPNIA (3) BACTEREMIA Assessment/Plan 02 supplementation to keep sat greater than 90%/nippv bronchodilators/antibiotics smoking cessation dvt prophylaxsis Ted BUTT MD Problem List - Problems (1) Cellulitis of both lower extremities Code(s): L03.115 - CELLULITIS OF RIGHT LOWER LIMB L03.116 - CELLULITIS OF LEFT LOWER LIMB (2) Chronic respiratory failure with hypoxia and hypercapnia Code(s): J96.21 - ACUTE AND CHRONIC RESPIRATORY FAILURE WITH HYPOXIA J96.22 - ACUTE AND CHRONIC RESPIRATORY FAILURE WITH HYPERCAPNIA
[2016-12-30] MEDS: ROSUVASTATIN CA 5 MG TABLET (FP) PO SCH (21:40)
[2016-12-31] MEDS: INSULIN SLIDING SCALE (NOVOLOG) 1 VIAL SQ SCH ×4 (06:52→21:19)
[2016-12-31] MEDS: ALBUTEROL SO4 2.5/IPRATROPIUM 0.5 INH SOL 3 ML VIAL.NEB. NEB SCH ×4 (06:58→23:08)
[2016-12-31 08:38] LABS: MCH 22.8 pg (25.7-33.7); MCHC 30.7 g/dl (32.0-35.9); MEAN CELL VOLUME 74.2 fl (80-96); MEAN PLT VOLUME 7.9 fl (7.5-11.1); PLATELET COUNT 192 K/MM3 (134-434); WHITE BLOOD COUNT 7.8 K/mm3 (4.0-10.0)
[2016-12-31] MEDS: INSULIN DETEMIR 100 UNITS/ML MDV SQ SCH ×2 (09:00→21:18)
[2016-12-31 09:21] LABS: CALCIUM 8.8 mg/dL (8.5-10.1); CREATININE 0.9 mg/dL (0.7-1.3)
[2016-12-31] MEDS ORDERED: PT OWN MED DRAWER 7, Y5N ONE ×2 (10:36→20:01)
[2016-12-31] MEDS: NICOTINE 14 MG/24 HOURS TOPICAL PATCH TD SCH (10:40)
[2016-12-31] MEDS: ASPIRIN 81 MG CHEWABLE TABLETS PO SCH (10:43)
[2016-12-31] MEDS: CHOLECALCIFEROL (VITAMIN D3) 400 UNIT TABLET (FP) PO SCH (10:43)
[2016-12-31] MEDS: CLOPIDOGREL BISULFATE 75 MG TABLET (FP) PO SCH (10:44)
[2016-12-31] MEDS: CEFTRIAXONE 100 ML IVPB SCH (10:44)
[2016-12-31] MEDS: TORSEMIDE 5 MG TABLET PO SCH (10:44)
[2016-12-31] MEDS: RANITIDINE HCL 150 MG TABLET (FP) PO SCH (10:44)
[2016-12-31] MEDS: BUDESONIDE/FORMETEROL FUMARATE 160/4.5 mcg INHALER IH SCH ×2 (11:53→21:19)
--- NOTE | 2016-12-31 12:12 | PN ---
Progress Note, Physician Chief Complaint: no new c.o, occasional legs pain asked for prn percocet - Current Medication List Current Medications: Active Medications Albuterol Sulfate (Ventolin Hfa Inhaler -) 1 puff IH Q4H PRN PRN Reason: ASTHMA Albuterol/Ipratropium (Duoneb -) 1 amp NEB QIDR [facility] Last Admin: 12/31/16 11:53 Dose: 1 amp Aspirin (Asa -) 81 mg PO DAILY [facility] Last Admin: 12/31/16 10:43 Dose: 81 mg Bacitracin (Bacitracin -) 1 applic TP DAILY [facility] Last Admin: 12/30/16 10:31 Dose: 1 applic Budesonide/Formoterol Fumarate (Symbicort 160/4.5mcg -) 2 puff IH BID [facility] Last Admin: 12/31/16 11:53 Dose: 2 inhaler Cholecalciferol (Vitamin D3 -) 400 unit PO DAILY [facility] Last Admin: 12/31/16 10:43 Dose: 400 unit Clopidogrel Bisulfate (Plavix -) 75 mg PO DAILY [facility] Last Admin: 12/31/16 10:44 Dose: 75 mg Ceftriaxone Sodium (Rocephin 2gm Ivpb (Pre-Docked)) 100 mls @ 200 mls/hr IVPB DAILY [facility] Last Admin: 12/31/16 10:44 Dose: 200 mls/hr Insulin Aspart (Novolog Vial Sliding Scale -) 1 vial SQ ACHS [facility] PRN Reason: Protocol Last Admin: 12/31/16 11:53 Dose: Not Given Insulin Detemir (Levemir Vial) 25 units SQ BID@0700,2200 [facility] Last Admin: 12/31/16 09:00 Dose: 25 units Nicotine (Nicoderm Patch -) 14 mg TD DAILY [facility] Last Admin: 12/31/16 10:40 Dose: 14 mg Ranitidine HCl (Zantac -) 150 mg PO DAILY [facility] Last Admin: 12/31/16 10:44 Dose: 150 mg Rosuvastatin Calcium (Crestor -) 5 mg PO HS [facility] Last Admin: 12/30/16 21:40 Dose: 5 mg Torsemide (Demadex -) 5 mg PO DAILY [facility] Last Admin: 12/31/16 10:44 Dose: 5 mg - Objective Vital Signs: Vital Signs Temperature 97.3 F L 12/31/16 06:00 Pulse Rate 66 12/31/16 11:52 Respiratory Rate 20 12/31/16 06:00 Blood Pressure 146/83 12/31/16 06:00 O2 Sat by Pulse Oximetry (%) 98 12/31/16 11:52 Constitutional: Yes: No Distress, Calm Eyes: Yes: Conjunctiva Clear HENT: Yes: Atraumatic Neck: Yes: Supple Cardiovascular: Yes: Regular Rate and Rhythm Respiratory: Yes: Diminished Gastrointestinal: Yes: Soft. No: Distention, Tenderness Genitourinary: No: Hematuria Musculoskeletal: No: Joint Stiffness, Joint Swelling Extremities: Yes: Erythema. No: Calf Tenderness Edema: Yes Integumentary: Yes: Rash, Venous Stasis Changes Neurological: Yes: WNL, Alert, Oriented ...Motor Strength: WNL Psychiatric: Yes: WNL, Alert, Oriented. No: Agitated, Suicidal Ideation Labs: CBC, BMP 12/31/16 06:15 12/31/16 06:15 INR, PTT INR 1.17 (0.82-1.09) H 12/26/16 17:00 - ....Imaging Other: Report Reviewed Assessment/Plan 66 M, advanced COPD (significant smoking) on 3-4 L at home and nocturnal, BIPAP , and bilateral LE venous stasis ulcers followed in wound care, PAD, DM, CHF, HTN, HLD, and CVA. Admitted via the ER due to increased LE edema and erythema. strep bacteremia- f/u blood culture id, repeat blood cultures sent continue vancomycin based on levels (trough pending), continue ceftriaxone per ID copd OSAS chronic venous stasis- consider wound care followup of legs, vascular sx f/u diabetes THERESA/CKD- f/u labs falls, decubs, DVT pfx; legs elevation d/w pt and staff; prognosis guarded
--- NOTE | 2016-12-31 14:11 | PN ---
Progress Note (short form) - Note Progress Note: PULMONARY RESTING COMFORTABLY ON BIPAP VSS ANICTERIC DISTANT B/L BREATH SOUNDS S1S2 OBESE LOWER EXT B/L ULCERS/BANDAGED LABS/MEDS/NOTES/IMAGING/REVIEWED (1) Cellulitis of both lower extremities Code(s): L03.115 - CELLULITIS OF RIGHT LOWER LIMB L03.116 - CELLULITIS OF LEFT LOWER LIMB (2) Chronic respiratory failure with hypoxia and hypercapnia Code(s): J96.21 - ACUTE AND CHRONIC RESPIRATORY FAILURE WITH HYPOXIA J96.22 - ACUTE AND CHRONIC RESPIRATORY FAILURE WITH HYPERCAPNIA (3) BACTEREMIA Assessment/Plan 02 supplementation to keep sat greater than 90%/nippv bronchodilators/antibiotics smoking cessation dvt prophylaxsis Ted BUTT MD Problem List - Problems (1) Cellulitis of both lower extremities Code(s): L03.115 - CELLULITIS OF RIGHT LOWER LIMB L03.116 - CELLULITIS OF LEFT LOWER LIMB (2) Chronic respiratory failure with hypoxia and hypercapnia Code(s): J96.21 - ACUTE AND CHRONIC RESPIRATORY FAILURE WITH HYPOXIA J96.22 - ACUTE AND CHRONIC RESPIRATORY FAILURE WITH HYPERCAPNIA
[2016-12-31] MEDS ORDERED: oxyCODONE HCL 5 MG TABLET PO PRN ×2 (14:49→22:00)
[2016-12-31] MEDS ORDERED: ACETAMINOPHEN 325 MG TABLET (FP) PO PRN ×2 (14:49→22:00)
[2016-12-31] MEDS: BACITRACIN 30 GM TUBE TOPICAL OINTMENT TP SCH (16:35)
[2016-12-31] MEDS: ROSUVASTATIN CA 5 MG TABLET (FP) PO SCH (21:19)
[2016-12-31] MEDS ORDERED: OXYCODONE/APAP 5/325MG COMBO TABLET PO SCH (22:00)
[2017-01-01] MEDS: INSULIN SLIDING SCALE (NOVOLOG) 1 VIAL SQ SCH ×4 (06:42→21:44)
[2017-01-01] MEDS: INSULIN DETEMIR 100 UNITS/ML MDV SQ SCH ×2 (06:43→21:45)
[2017-01-01] MEDS: ALBUTEROL SO4 2.5/IPRATROPIUM 0.5 INH SOL 3 ML VIAL.NEB. NEB SCH ×4 (07:00→23:54)
[2017-01-01] MEDS ORDERED: PT OWN MED DRAWER 7, Y5N ONE ×3 (09:09→21:48)
[2017-01-01] MEDS: CLOPIDOGREL BISULFATE 75 MG TABLET (FP) PO SCH (09:26)
[2017-01-01] MEDS: NICOTINE 14 MG/24 HOURS TOPICAL PATCH TD SCH (09:26)
[2017-01-01] MEDS: RANITIDINE HCL 150 MG TABLET (FP) PO SCH (09:26)
[2017-01-01] MEDS: ASPIRIN 81 MG CHEWABLE TABLETS PO SCH (09:26)
[2017-01-01] MEDS: CHOLECALCIFEROL (VITAMIN D3) 400 UNIT TABLET (FP) PO SCH (09:27)
[2017-01-01] MEDS: TORSEMIDE 5 MG TABLET PO SCH (09:28)
[2017-01-01] MEDS: BUDESONIDE/FORMETEROL FUMARATE 160/4.5 mcg INHALER IH SCH ×2 (09:28→21:44)
[2017-01-01] MEDS: CEFTRIAXONE 100 ML IVPB SCH (09:29)
--- NOTE | 2017-01-01 11:35 | PN ---
Progress Note (short form) - Note Progress Note: PULMONARY DAY #5 ON CEFTRIAXONE(NEEDS 14 DAYS) PER ID RESTING COMFORTABLY ON BIPAP VSS ANICTERIC DISTANT B/L BREATH SOUNDS S1S2 OBESE LOWER EXT B/L ULCERS/BANDAGED LABS/MEDS/NOTES/IMAGING/REVIEWED (1) Cellulitis of both lower extremities Code(s): L03.115 - CELLULITIS OF RIGHT LOWER LIMB L03.116 - CELLULITIS OF LEFT LOWER LIMB (2) Chronic respiratory failure with hypoxia and hypercapnia Code(s): J96.21 - ACUTE AND CHRONIC RESPIRATORY FAILURE WITH HYPOXIA J96.22 - ACUTE AND CHRONIC RESPIRATORY FAILURE WITH HYPERCAPNIA (3) BACTEREMIA Assessment/Plan 02 supplementation to keep sat greater than 90%/nippv bronchodilators/antibiotics smoking cessation dvt prophylaxsis Ted BUTT MD Problem List - Problems (1) Cellulitis of both lower extremities Code(s): L03.115 - CELLULITIS OF RIGHT LOWER LIMB L03.116 - CELLULITIS OF LEFT LOWER LIMB (2) Chronic respiratory failure with hypoxia and hypercapnia Code(s): J96.21 - ACUTE AND CHRONIC RESPIRATORY FAILURE WITH HYPOXIA J96.22 - ACUTE AND CHRONIC RESPIRATORY FAILURE WITH HYPERCAPNIA
--- NOTE | 2017-01-01 12:19 | PN ---
Progress Note, Physician Chief Complaint: no new c/o feels well d/w pt about plan per ID treatment - Current Medication List Current Medications: Active Medications Acetaminophen (Tylenol -) 325 mg PO BID PRN Albuterol Sulfate (Ventolin Hfa Inhaler -) 1 puff IH Q4H PRN PRN Reason: ASTHMA Albuterol/Ipratropium (Duoneb -) 1 amp NEB QIDR [facility] Last Admin: 01/01/17 07:00 Dose: 1 amp Aspirin (Asa -) 81 mg PO DAILY [facility] Last Admin: 01/01/17 09:26 Dose: 81 mg Bacitracin (Bacitracin -) 1 applic TP DAILY [facility] Last Admin: 12/31/16 16:35 Dose: 1 applic Budesonide/Formoterol Fumarate (Symbicort 160/4.5mcg -) 2 puff IH BID [facility] Last Admin: 01/01/17 09:28 Dose: 2 inhaler Cholecalciferol (Vitamin D3 -) 400 unit PO DAILY [facility] Last Admin: 01/01/17 09:27 Dose: 400 unit Clopidogrel Bisulfate (Plavix -) 75 mg PO DAILY [facility] Last Admin: 01/01/17 09:26 Dose: 75 mg Ceftriaxone Sodium (Rocephin 2gm Ivpb (Pre-Docked)) 100 mls @ 200 mls/hr IVPB DAILY [facility] Last Admin: 01/01/17 09:29 Dose: 200 mls/hr Insulin Aspart (Novolog Vial Sliding Scale -) 1 vial SQ ACHS [facility] PRN Reason: Protocol Last Admin: 01/01/17 11:45 Dose: Not Given Insulin Detemir (Levemir Vial) 25 units SQ BID@0700,2200 [facility] Last Admin: 01/01/17 06:43 Dose: 25 units Nicotine (Nicoderm Patch -) 14 mg TD DAILY [facility] Last Admin: 01/01/17 09:26 Dose: 14 mg Oxycodone HCl (Roxicodone -) 5 mg PO BID PRN Ranitidine HCl (Zantac -) 150 mg PO DAILY [facility] Last Admin: 01/01/17 09:26 Dose: 150 mg Rosuvastatin Calcium (Crestor -) 5 mg PO HS [facility] Last Admin: 12/31/16 21:19 Dose: 5 mg Torsemide (Demadex -) 5 mg PO DAILY [facility] Last Admin: 01/01/17 09:28 Dose: 5 mg - Objective Vital Signs: Vital Signs Temperature 98.3 F 01/01/17 06:15 Pulse Rate 62 01/01/17 10:00 Respiratory Rate 18 01/01/17 10:00 Blood Pressure 142/70 01/01/17 10:00 O2 Sat by Pulse Oximetry (%) 98 01/01/17 07:23 Constitutional: Yes: No Distress, Calm Eyes: Yes: Conjunctiva Clear HENT: Yes: Atraumatic Neck: Yes: Supple Cardiovascular: Yes: Regular Rate and Rhythm Respiratory: Yes: CTA Bilaterally Gastrointestinal: Yes: Soft. No: Distention, Tenderness Musculoskeletal: No: Joint Stiffness, Joint Swelling Extremities: No: Cold, Cool Edema: Yes Integumentary: Yes: Rash, Venous Stasis Changes Neurological: Yes: WNL, Alert, Oriented ...Motor Strength: WNL Psychiatric: Yes: WNL, Alert, Oriented. No: Agitated, Suicidal Ideation Labs: CBC, BMP 12/31/16 06:15 12/31/16 06:15 INR, PTT INR 1.17 (0.82-1.09) H 12/26/16 17:00 - ....Imaging Other: Report Reviewed Assessment/Plan 66 M, advanced COPD (significant smoking) on 3-4 L at home and nocturnal, BIPAP , and bilateral LE venous stasis ulcers followed in wound care, PAD, DM, CHF, HTN, HLD, and CVA. Admitted via the ER due to increased LE edema and erythema. strep bacteremia- f/u blood culture id, repeat blood cultures sent continue vancomycin based on levels (trough pending), continue ceftriaxone per ID copd OSAS chronic venous stasis- wound care followup of legs, vascular sx f/u diabetes THERESA/CKD- f/u labs falls, decubs, DVT pfx; legs elevation d/w pt and staff; prognosis guarded
[2017-01-01] MEDS: BACITRACIN 30 GM TUBE TOPICAL OINTMENT TP SCH (16:49)
[2017-01-01] MEDS: ROSUVASTATIN CA 5 MG TABLET (FP) PO SCH (21:44)
[2017-01-02] MEDS: INSULIN SLIDING SCALE (NOVOLOG) 1 VIAL SQ SCH ×3 (06:02→18:00)
[2017-01-02 06:42] VITALS: TEMP 98.4
[2017-01-02] MEDS: INSULIN DETEMIR 100 UNITS/ML MDV SQ SCH (07:00)
--- NOTE | 2017-01-02 11:02 | PN ---
Progress Note (short form) - Note Progress Note: PULMONARY Denies shortness of breath. Occasional cough and wheezing. Saturating 86% on room air. Last Vital Signs Temp Pulse Resp BP Pulse Ox 98.4 F 72 20 150/80 99 01/02/17 06:00 01/02/17 06:00 01/02/17 06:00 01/02/17 06:00 01/02/17 03:28 Gen: NAD at rest Heart: RRR Lung: right base rales Abd: soft, nontender EXt: + edema CBC, BMP 12/31/16 06:15 12/31/16 06:15 Active Medications Acetaminophen (Tylenol -) 325 mg PO BID PRN Last Admin: 01/01/17 16:49 Dose: 325 mg Albuterol Sulfate (Ventolin Hfa Inhaler -) 1 puff IH Q4H PRN PRN Reason: ASTHMA Albuterol/Ipratropium (Duoneb -) 1 amp NEB QIDR [facility] Last Admin: 01/01/17 23:54 Dose: 1 amp Aspirin (Asa -) 81 mg PO DAILY [facility] Last Admin: 01/01/17 09:26 Dose: 81 mg Bacitracin (Bacitracin -) 1 applic TP DAILY [facility] Last Admin: 01/01/17 16:49 Dose: 1 applic Budesonide/Formoterol Fumarate (Symbicort 160/4.5mcg -) 2 puff IH BID [facility] Last Admin: 01/01/17 21:44 Dose: 2 inhaler Cholecalciferol (Vitamin D3 -) 400 unit PO DAILY [facility] Last Admin: 01/01/17 09:27 Dose: 400 unit Clopidogrel Bisulfate (Plavix -) 75 mg PO DAILY [facility] Last Admin: 01/01/17 09:26 Dose: 75 mg Ceftriaxone Sodium (Rocephin 2gm Ivpb (Pre-Docked)) 100 mls @ 200 mls/hr IVPB DAILY [facility] Last Admin: 01/01/17 09:29 Dose: 200 mls/hr Insulin Aspart (Novolog Vial Sliding Scale -) 1 vial SQ ACHS [facility] PRN Reason: Protocol Last Admin: 01/02/17 06:02 Dose: Not Given Insulin Detemir (Levemir Vial) 25 units SQ BID@0700,2200 [facility] Last Admin: 01/01/17 21:45 Dose: 25 units Nicotine (Nicoderm Patch -) 14 mg TD DAILY [facility] Last Admin: 01/01/17 09:26 Dose: 14 mg Oxycodone HCl (Roxicodone -) 5 mg PO BID PRN Last Admin: 01/01/17 16:50 Dose: 5 mg Ranitidine HCl (Zantac -) 150 mg PO DAILY [facility] Last Admin: 01/01/17 09:26 Dose: 150 mg Rosuvastatin Calcium (Crestor -) 5 mg PO HS [facility] Last Admin: 01/01/17 21:44 Dose: 5 mg Torsemide (Demadex -) 5 mg PO DAILY [facility] Last Admin: 01/01/17 09:28 Dose: 5 mg A/P Cellulitis Strep Bacteremia COPD Chronic Hypoxic and Hypercapneic Respiratory Failure MARTIN DM CHF Smoker - continue antibiotics - inhaled bronchodilators - BiPAP at night and PRN during day - O2 to keep SpO2 >88% - DVT prophylaxis - smoking cessation
[2017-01-02] MEDS: ALBUTEROL SO4 2.5/IPRATROPIUM 0.5 INH SOL 3 ML VIAL.NEB. NEB SCH ×2 (11:23→12:15)
[2017-01-02] MEDS: ASPIRIN 81 MG CHEWABLE TABLETS PO SCH (11:50)
[2017-01-02] MEDS: CLOPIDOGREL BISULFATE 75 MG TABLET (FP) PO SCH (11:50)
[2017-01-02] MEDS: CHOLECALCIFEROL (VITAMIN D3) 400 UNIT TABLET (FP) PO SCH (11:50)
[2017-01-02] MEDS: NICOTINE 14 MG/24 HOURS TOPICAL PATCH TD SCH (11:50)
[2017-01-02] MEDS: RANITIDINE HCL 150 MG TABLET (FP) PO SCH (11:50)
[2017-01-02] MEDS: TORSEMIDE 5 MG TABLET PO SCH (11:52)
[2017-01-02] MEDS: BUDESONIDE/FORMETEROL FUMARATE 160/4.5 mcg INHALER IH SCH (11:53)
[2017-01-02] MEDS: CEFTRIAXONE 100 ML IVPB SCH (11:53)
[2017-01-02] MEDS: BACITRACIN 30 GM TUBE TOPICAL OINTMENT TP SCH (12:14)
[2017-01-02 14:12] VITALS: BP 133/65; PULSE 66
--- NOTE | 2017-01-02 15:15 | DS ---
Physical Examination Vital Signs: Vital Signs Temperature 98.4 F 01/02/17 14:11 Pulse Rate 66 01/02/17 14:11 Respiratory Rate 16 01/02/17 14:11 Blood Pressure 133/65 01/02/17 14:11 O2 Sat by Pulse Oximetry (%) 99 01/02/17 03:28 Constitutional: Yes: No Distress, Calm Cardiovascular: Yes: Regular Rate and Rhythm, S1, S2 Respiratory: Yes: Regular, Other (coarse BS) Gastrointestinal: Yes: Normal Bowel Sounds, Soft, Abdomen, Obese Extremities: Yes: Amputation Edema: LLE: 1+, RLE: 1+ Integumentary: Yes: Erythema, Venous Stasis Changes Neurological: Yes: Alert, Oriented Psychiatric: Yes: Alert, Oriented Labs: CBC, BMP 12/31/16 06:15 12/31/16 06:15 Discharge Summary Reason For Visit: [facility] LOW EXTR Current Active Problems Acute and chronic respiratory failure with hypercapnia (Acute) Bacteremia due to Gram-positive bacteria (Acute) Cellulitis of both lower extremities (Acute) Chronic renal disease (Acute) Sepsis (Acute) Chronic respiratory failure with hypoxia and hypercapnia (Chronic) Hospital Course: Pt came to ER with low O2 sat (noticed by VNS); in ER pt. was noticed to have fever, leukocytosis, leg cellulitis; pt. was admitted for IV abtx treatment. Pt. 's BCX were positive for Beta Hem Strp. group G. Pt was seen by ID (Dr. Norman), Pulmonary( Dr. Lazaro/ Oscar), Vasc Sx( Dr. Sabino Cordon). Pt improved and would be DC to Rehab to cont abtx. and for PT. Condition: Fair - Instructions Diet, Activity, Other Instructions: ADA, Low salt, Low Cholesterol Monitor BGM Cont. BIPAP Repeate CBC, CMP this week. Referrals: Liyah Louise MD [Primary Care Provider] - (in 1-2 weeks after [facility] discharge) Disposition: RETIREMENT FACILITY - Home Medications Comprehensive Discharge Medication List: Ambulatory Orders Aspirin [ASA -] 81 mg PO DAILY 12/27/16 Cholecalciferol (Vitamin D3) [Vitamin D -] 1 tab PO DAILY 12/27/16 Clopidogrel Bisulfate [Plavix -] 0 mg PO DAILY 12/27/16 Cyanocobalamin (Vitamin B-12) [Vitamin B-12] 1 tab PO DAILY 12/27/16 Multivit-Min/Iron Fum/Folic AC [Kltcl-Kikifyj-Onuvicdc Tablet] 1 each PO DAILY 12/27/16 Rosuvastatin [Crestor -] 0 mg PO HS 12/27/16 Tiotropium [place] [Spiriva] 0 inh PO DAILY 12/27/16 Torsemide 0 mg PO DAILY 12/27/16 Acetaminophen [Tylenol .Regular Strength -] 325 mg PO BID PRN #0 tablet Albuterol 2.5/Ipratropium 0.5 [Duoneb -] 1 amp NEB QIDR amp 01/02/17 Bacitracin - [Bacitracin Topical Ointment -] 1 applic TP DAILY tube 01/02/17 Budesonide/Formeterol Fumarate [SYMBICORT 160/4.5mcg -] 2 puff IH BID inhaler 01/02/17 Ceftriaxone [Rocephin 2Gm Ivpb (Pre-Docked)] 100 ml IVPB DAILY #7 bag 01/02/17 Insulin Sliding Scale [Novolog Vial Sliding Scale -] 1 vial SQ ACHS units 01/02 Nicotine Patch [Nicoderm Patch -] 14 mg TD DAILY patch 01/02/17 Oxycodone HCl [Roxicodone -] 5 mg PO BID PRN #0 tablet MDD 2 01/02/17 Ranitidine [Zantac -] 150 mg PO DAILY tablet 01/02/17
== END 2017-01-02 19:39 | DRG 871 ==
LOC: JER 16:26 → JERBED 19:32 → J4W 12-27 21:45 → J8W 12-28 16:53
PROVIDERS: ADMIT Specialist; ATTEND Specialist
PROC: 5A09557 Assistance with Respiratory Ventilation, Greater than 96 Consecutive Hours, Continuous Positive Airway Pressure (ICD-10-PCS; principal; 2016-12-26)
PROC: 02HV33Z Insertion of Infusion Device into Superior Vena Cava, Percutaneous Approach (ICD-10-PCS; 2017-01-02)
PROC: B518YZA Fluoroscopy of Superior Vena Cava using Other Contrast, Guidance (ICD-10-PCS; 2017-01-02)
DX: A41.9 Sepsis, unspecified organism (principal); J96.22 Acute and chronic respiratory failure with hypercapnia; J96.21 Acute and chronic respiratory failure with hypoxia; L03.115 Cellulitis of right lower limb; L03.116 Cellulitis of left lower limb; N17.9 Acute kidney failure, unspecified; Z68.42 Body mass index [BMI] 45.0-49.9, adult; I13.0 Hypertensive heart and chronic kidney disease with heart failure and stage 1 through stage 4 chronic kidney disease, or unspecified chronic kidney disease; I25.10 Atherosclerotic heart disease of native coronary artery without angina pectoris; J44.9 Chronic obstructive pulmonary disease, unspecified; G47.33 Obstructive sleep apnea (adult) (pediatric); I50.9 Heart failure, unspecified; E11.9 Type 2 diabetes mellitus without complications; N18.9 Chronic kidney disease, unspecified; E78.5 Hyperlipidemia, unspecified; I73.9 Peripheral vascular disease, unspecified; E66.01 Morbid (severe) obesity due to excess calories; Z86.73 Personal history of transient ischemic attack (TIA), and cerebral infarction without residual deficits; F17.200 Nicotine dependence, unspecified, uncomplicated
CPT/HCPCS: 36415; 36569; 36600; 70450-TC; 71010-TC; 77001-TC; 80048; 80053; 82550; 82803; 83605; 83880; 84484; 85025; 85027; 85610; 85651; 85730; 86140; 86850; 86900; 86901; 87040; 87086; 87186; 87254; 87804; 93005; 93010; 93306-TC; 94640; 94660; 97116-GP; 97161-GP; 99285-25; C1751; G0463-25; G0480

== ENCOUNTER 2017-05-08 14:25 | Inpatient (IN) | payer OTHER ==
[2017-05-08 14:36] VITALS: BMI 31.1
--- NOTE | 2017-05-08 17:23 | PDOC ---
History of Present Illness - General Chief Complaint: Wound Infection Stated Complaint: SENT BY PCP Time Seen by Provider: 05/08/17 16:54 - History of Present Illness Initial Comments: 05/08/17 16:17 Patient is a 67-year-old male with a past medical history of hyperlipidemia, hypertension, diabetes, COPD on home O2, chronic lower leg wounds, stroke, CAD, left Fem-pop bypass, presents to the emergency department today complaining of bilateral lower leg swelling and pain. Patient states that he has chronic wounds and may have dressings that are changed every other day. Visiting nurse service came today to change his dressings and noticed that the legs were very red and weeping. They were concerned for possible infection so they sent him to the emergency department for further evaluation. Patient admits to pain in the legs, and chills. Denies fevers, malaise, chest pain, shortness of breath, palpitations, nausea, vomiting and diarrhea. Past History - Travel Traveled outside of the country in the last 30 days: No - Past Medical History Allergies/Adverse Reactions: Allergies Allergy/AdvReac Type Severity Reaction Status Date / Time amoxicillin trihydrate Allergy Unknown Verified 05/08/17 14:38 [From Augmentin] potassium clavulanate Allergy Unknown Verified 05/08/17 14:38 [From Augmentin] Home Medications: Ambulatory Orders Aspirin [ASA -] 81 mg PO DAILY 12/27/16 Cholecalciferol (Vitamin D3) [Vitamin D -] 1 tab PO DAILY 12/27/16 Clopidogrel Bisulfate [Plavix -] 0 mg PO DAILY 12/27/16 Cyanocobalamin (Vitamin B-12) [Vitamin B-12] 1 tab PO DAILY 12/27/16 Multivit-Min/Iron Fum/Folic AC [Jrobv-Qzqwirr-Hcpflyvo Tablet] 1 each PO DAILY 12/27/16 Rosuvastatin [Crestor -] 0 mg PO HS 12/27/16 Tiotropium [place] [Spiriva] 17 inh PO DAILY 12/27/16 Torsemide 20 mg PO DAILY 12/27/16 Acetaminophen [Tylenol .Regular Strength -] 325 mg PO BID PRN #0 tablet Albuterol 2.5/Ipratropium 0.5 [Duoneb -] 1 amp NEB QIDR amp 01/02/17 Budesonide/Formeterol Fumarate [SYMBICORT 160/4.5mcg -] 2 puff IH BID inhaler 01/02/17 Insulin (Levemir) [Levemir Vial] 25 units SQ BID@0700,2200 ml 01/02/17 Insulin Sliding Scale [Novolog Vial Sliding Scale -] 1 vial SQ ACHS units 01/02 Nicotine Patch [Nicoderm Patch -] 14 mg TD DAILY patch 01/02/17 Ranitidine [Zantac -] 150 mg PO DAILY tablet 01/02/17 Citalopram Hydrobromide [Celexa -] 1 tab PO DAILY 04/20/17 Anemia: No Cardiac Disorders: Yes (CAD) CVA: Yes (no deficit 5years ago.) COPD: Yes (o2 depend home 3-4lpm n/c.) CHF: No Dementia: No Diabetes: Yes GI Disorders: Yes (OBESITY.) Disorders: No HTN: Yes Hypercholesterolemia: Yes Liver Disease: No Seizures: No Thyroid Disease: No - Surgical History Abdominal Surgery: No Appendectomy: No Cardiac Surgery: Yes (LEFT FEM-POP BYPASS) Cholecystectomy: No Lung Surgery: No Neurologic Surgery: No Orthopedic Surgery: No - Immunization History Immunization Up to Date: No - Psycho/Social/Smoking Cessation Hx Anxiety: No Suicidal Ideation: No Smoking Status: Yes Smoking History: Current some day smoker Have you smoked in the past 12 months: Yes Number of Cigarettes Smoked Daily: 3 If you are a former smoker, when did you quit?: 6 months Information on smoking cessation initiated: No 'Breaking Loose' booklet given: 10/28/16 Hx Alcohol Use: Yes Drug/Substance Use Hx: No Substance Use Type: Alcohol Hx Substance Use Treatment: No Review of Systems - Review of Systems Able to Perform ROS?: Yes Is the patient limited Luxembourgish proficient: No Constitutional: Yes: Chills. No: Fever, Malaise, Weakness Respiratory: Yes: Wheezing. No: Cough, Shortness of Breath Cardiac (ROS): Yes: Edema. No: Chest Pain, Lightheadedness, Chest Tightness Integumentary: Yes: Change in Color, Erythema, Flushing, Other (weeping wounds) . No: Pruritus Neurological: No: Numbness, Paresthesia, Weakness *Physical Exam - Vital Signs Last Vital Signs Temp Pulse Resp BP Pulse Ox 98.9 F 84 26 H 135/54 90 L 05/08/17 14:32 05/08/17 14:32 05/08/17 14:32 05/08/17 14:32 05/08/17 14:32 - Physical Exam Comments: 05/08/17 16:19 GENERAL: Well developed, well nourished. Awake and alert. No acute distress. HEENT: Normocephalic, atraumatic. PERRLA, EOMI. No conjunctival pallor. Sclera are non- icteric. Moist mucous membranes. Oropharynx is clear. NECK: Supple. Full ROM. No JVD. Carotid pulses 2+ and symmetric, without bruits. No thyromegaly. No lymphadenopathy. CARDIOVASCULAR: Regular rate and rhythm. (+) 2/6 systolic ejection murmur loudest at the base between the L 3rd/4th intercoastal space. No rubs, or gallops. Distal pulses are 2+ and symmetric. PULMONARY: Bilateral scattered wheezing. No evidence of respiratory distress. ABDOMINAL: Soft. Non-tender. Non-distended. No rebound or guarding. No organomegaly. Normoactive bowel sounds. MUSCULOSKELETAL Normal range of motion at all joints. No bony deformities or tenderness. No CVA tenderness. EXTREMITIES: No cyanosis. No clubbing. No edema. No calf tenderness. SKIN: Bilateral lower legs are warm to the touch, and with weeping cellulitis from the feet to mid calf. There are scattered areas of open wounds which are weeping and have some pus. These areas are wound cultured. Distal DP pulses are present. Normal capillary refill. No jaundice. NEUROLOGICAL: Alert, awake, appropriate. Cranial nerves 2-12 intact. No deficits to light touch and temperature in face, upper extremities and lower extremities. No motor deficits in the in face, upper extremities and lower extremities. Normoreflexic in the upper and lower extremities. Normal speech. Toes are down- going bilaterally. Gait is normal without ataxia. PSYCHIATRIC: Cooperative. Good eye contact. Appropriate mood and affect. ED Treatment Course - LABORATORY CBC & Chemistry Diagram: 05/08/17 17:46 05/08/17 17:46 Medical Decision Making - Medical Decision Making 05/08/17 16:23 Patient is a 67-year-old male with a past medical history of hyperlipidemia, hypertension, diabetes, COPD on home O2, chronic lower leg wounds, stroke, CAD, left Fem-pop bypass, who presents with weeping pruritic cellulitis of the bilateral legs. Given the patient's presentation and multiple comorbidities we' ll obtain septic workup at this time. This will probably lead to an admission for IV antibiotics. 1.septic workup 2.IV antibiotics, IV Zosyn, IV vancomycin 3.wound culture obtained of the purulent areas. 4.we'll give breathing treatment for wheezing 5.reevaluate 05/08/17 18:52 Labs showed elevated white count of 12.8, we'll call Dr. Valle for admission at this time. EKG: sinus rhytm with a 1st degree AV block. rate 73. QT: 440, LBBB, L axis deviation. no acute ST-T wave changes 05/08/17 19:06 Dr. Barrera agrees for admission at this time. Will admit patient to [facility] for cellulitis treatment. *DC/Admit/Observation/Transfer Diagnosis at time of Disposition: Cellulitis Qualifiers: Site of cellulitis: extremity Site of cellulitis of extremity: lower extremity Laterality: right Qualified Code(s): L03.115 - Cellulitis of right lower limb Cellulitis of leg Qualifiers: Laterality: left Qualified Code(s): L03.116 - Cellulitis of left lower limb - Discharge Dispostion Admit: Yes
[2017-05-08] MEDS ORDERED: ALBUTEROL SO4 2.5/IPRATROPIUM 0.5 INH SOL 3 ML VIAL.NEB. NEB ONE ×2 (17:34→19:17)
[2017-05-08 17:53] LABS: URINE APPEARANCE CLEAR; URINE BILIRUBIN NEGATIVE (NEGATIVE); URINE BLOOD NEGATIVE (NEGATIVE); URINE COLOR YELLOW; URINE GLUCOSE (UA) NEGATIVE (NEGATIVE); URINE KETONE NEGATIVE (NEGATIVE); URINE LEUK ESTERASE TRACE (NEGATIVE); URINE NITRITE NEGATIVE (NEGATIVE); URINE PROTEIN NEGATIVE (NEGATIVE); URINE UROBILINOGEN NEGATIVE mg/dL (0.2-1.0)
[2017-05-08 17:55] LABS: URINE HYALINE CAST 8 /lpf; URINE MUCUS RARE; URINE RBC 1 /hpf (0-3); URINE WBC 3 /hpf (3-5)
[2017-05-08 18:18] LABS: VENOUS BLOOD GAS HCO3 35.7 meq/L (19-25); VENOUS PH 7.31 (7.32-7.42)
[2017-05-08] MEDS ORDERED: VANCOMYCIN 1,000 MG in DEXTROSE 5%-WATER - 250 ML IVPB ONE (18:45)
[2017-05-08 18:48] LABS: INR 1.32 (0.82-1.09); PROTHROMBIN TIME (PATIENT) 14.6 SEC (9.98-11.88)
[2017-05-08 18:50] LABS: ACTIVATED PTT 32.2 SECONDS (26.9-34.4)
--- NOTE | 2017-05-08 18:53 | PDOC ---
*Physical Exam - Vital Signs Last Vital Signs Temp Pulse Resp BP Pulse Ox 98.9 F 84 26 H 135/54 90 L 05/08/17 14:32 05/08/17 14:32 05/08/17 14:32 05/08/17 14:32 05/08/17 14:32 - Physical Exam General Appearance: Yes: Nourished, Appropriately Dressed Respiratory/Chest: positive: Normal Breath Sounds, Wheezing Cardiovascular: positive: Regular Rhythm, Regular Rate, S1, S2, Tachycardia Vascular Pulses: Dorsalis-Pedis (R): 2+, Doralis-Pedis (L): 2+ Gastrointestinal/Abdominal: positive: Normal Bowel Sounds, Soft. negative: Tender Musculoskeletal: negative: CVA Tenderness Extremity: positive: Normal Range of Motion, Swelling, Erythema, Inflammation Integumentary: positive: Warm, Erythema, Other (bilat lower ext edema, erythema , warmth, weeping right leg. ) Neurologic: positive: chief digital officer II-XII NML intact, Fully Oriented, Alert, Normal Mood/ Affect ED Treatment Course - LABORATORY CBC & Chemistry Diagram: 05/08/17 17:46 05/08/17 17:46 - ADDITIONAL ORDERS Additional order review: Laboratory Results 05/08/17 05/08/17 05/08/17 17:50 17:46 17:46 VBG pH 7.31 L POC VBG pCO2 72.7 H* POC VBG pO2 16.3 L* Mixed VBG HCO3 35.7 H Sodium Cancelled Potassium Cancelled Chloride Cancelled Carbon Dioxide Cancelled Anion Gap Cancelled BUN Cancelled Creatinine Cancelled Creat Clearance w eGFR Cancelled Random Glucose Cancelled Calcium Cancelled Total Bilirubin Cancelled AST Cancelled ALT Cancelled Alkaline Phosphatase Cancelled Creatine Kinase Cancelled Troponin I Cancelled Total Protein Cancelled Albumin Cancelled Urine Color Yellow Urine Appearance Clear Urine pH 5.0 Urine Protein Negative Urine Glucose (UA) Negative Urine Ketones Negative Urine Blood Negative Urine Nitrite Negative Urine Bilirubin Negative Urine Urobilinogen Negative Ur Leukocyte Esterase Trace H Urine RBC 1 Urine WBC 3 Ur Epithelial Cells Rare Hyaline Casts 8 Urine Mucus Rare - Medications Given in the ED: ED Medications Discontinued Medications Generic Name Dose Route Start Last Admin Trade Name Freq PRN Reason Stop Dose Admin Albuterol/Ipratropium 1 amp 05/08/17 17:34 05/08/17 17:47 Duoneb - NEB 05/08/17 17:35 1 amp ONCE ONE Administration Medical Decision Making - Medical Decision Making 05/08/17 18:51 67 yo M wtih h/o copd, chronic leg wounds followed by wound care and dr barrera. here wtih worsenign leg swelling and redness for few days. no f/c no cough no sob. not taking abx currently. has had weeping from right leg. one exam lungs with bilat exp wheezing, cardiac nomral. bilat lower ext with erythema warmth and weeping right leg to level mid aguirre. plan r/o cellulitis, sepsis. plna iv abx, admit dr hightower.
[2017-05-08 19:03] LABS: BASOPHIL 0.7 % (0-2.0); MCH 21.5 pg (25.7-33.7); MCHC 30.9 g/dl (32.0-35.9); MEAN CELL VOLUME 69.8 fl (80-96); MEAN PLT VOLUME 7.8 fl (7.5-11.1); NEUTROPHILS 84.8 % (42.8-82.8); PLATELET COUNT 322 K/MM3 (134-434); RDW 19.4 % (11.9-15.9); WHITE BLOOD COUNT 12.3 K/mm3 (4.0-10.0)
[2017-05-08] MEDS ORDERED: VANCOMYCIN 1 GRAM (PRE-DOCKED) 250 ML IVPB ONE ×2 (19:18→19:40)
[2017-05-08 20:34] LABS: ANISOCYTOSIS 1+; HYPOCHROMIA 1+; MICROCYTOSIS 1+; OVALOCYTES FEW; PLATELET ESTIMATE ADEQUATE (NORMAL)
[2017-05-08 20:45] LABS: ALBUMIN 2.2 g/dl (3.4-5.0); ALK PHOS 67 U/L (45-117); ANION GAP 5 (8-16); BILIRUBIN,TOTAL 0.3 mg/dL (0.2-1.0); CALCIUM 8.1 mg/dL (8.5-10.1); CO2 35 mmol/L (21-32); CREATININE 1.3 mg/dL (0.7-1.3); SGOT/AST 13 U/L (15-37); SGPT/ALT 11 U/L (12-78); TOT PROT 6.9 g/dl (6.4-8.2)
[2017-05-08 20:48] LABS: GLUCOSE,RANDOM 45 mg/dL (74-106)
[2017-05-08 21:13] LABS: TROPONIN I < 0.02 ng/ml (0.00-0.05)
[2017-05-08] MEDS ORDERED: ACETAMINOPHEN 325 MG TABLET (FP) PO PRN ×2 (21:22→21:57)
[2017-05-08] MEDS ORDERED: OXYCODONE/APAP 5/325MG COMBO TABLET PO PRN (21:25)
--- NOTE | 2017-05-08 21:33 | HP ---
Admitting History and Physical - Primary Care Physician PCP: Noemy Valle - Admission Chief Complaint: legs rash and pain History of Present Illness: Patient is a 67-year-old male with a past medical history of hyperlipidemia, hypertension, diabetes, COPD on home O2, chronic lower leg wounds, stroke, CAD, left Fem-pop bypass, presents to the emergency department today complaining of bilateral lower leg swelling and pain. Patient states that he has chronic wounds and may have dressings that are changed every other day. Visiting nurse service came today to change his dressings and noticed that the legs were very red and weeping. They were concerned for possible infection so they sent him to the emergency department for further evaluation. Patient admits to pain in the legs, and chills. Denies fevers, malaise, chest pain, shortness of breath, palpitations, nausea, vomiting and diarrhea. 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 History of Recent Travel: No Home Medications - Allergies Allergies/Adverse Reactions: Allergies Allergy/AdvReac Type Severity Reaction Status Date / Time amoxicillin trihydrate Allergy Unknown Verified 05/08/17 14:38 [From Augmentin] potassium clavulanate Allergy Unknown Verified 05/08/17 14:38 [From Augmentin] - Home Medications Home Medications: Ambulatory Orders Aspirin [ASA -] 81 mg PO DAILY 12/27/16 Cholecalciferol (Vitamin D3) [Vitamin D -] 1 tab PO DAILY 12/27/16 Clopidogrel Bisulfate [Plavix -] 0 mg PO DAILY 12/27/16 Cyanocobalamin (Vitamin B-12) [Vitamin B-12] 1 tab PO DAILY 12/27/16 Multivit-Min/Iron Fum/Folic AC [Tydmn-Ameqbsg-Txxsffzx Tablet] 1 each PO DAILY 12/27/16 Rosuvastatin [Crestor -] 0 mg PO HS 12/27/16 Tiotropium [place] [Spiriva] 17 inh PO DAILY 12/27/16 Torsemide 20 mg PO DAILY 12/27/16 Acetaminophen [Tylenol .Regular Strength -] 325 mg PO BID PRN #0 tablet Albuterol 2.5/Ipratropium 0.5 [Duoneb -] 1 amp NEB QIDR amp 01/02/17 Budesonide/Formeterol Fumarate [SYMBICORT 160/4.5mcg -] 2 puff IH BID inhaler 01/02/17 Insulin (Levemir) [Levemir Vial] 25 units SQ BID@0700,2200 ml 01/02/17 Insulin Sliding Scale [Novolog Vial Sliding Scale -] 1 vial SQ ACHS units 01/02 Nicotine Patch [Nicoderm Patch -] 14 mg TD DAILY patch 01/02/17 Ranitidine [Zantac -] 150 mg PO DAILY tablet 01/02/17 Citalopram Hydrobromide [Celexa -] 1 tab PO DAILY 04/20/17 Family Disease History - Family Disease History Family Disease History: Diabetes: Daughter Review of Systems - Review of Systems Constitutional: denies: Chills, Fever, Lethargy Eyes: denies: Blind Spots, Blurred Vision, Double Vision HENT: denies: Ear Pain, Throat Pain Neck: denies: Stiffness, Tenderness Cardiovascular: denies: Chest Pain, Shortness of Breath Respiratory: denies: Cough, Hemoptysis, SOB Gastrointestinal: denies: Abdominal Pain, Constipation, Diarrhea Genitourinary: denies: Dysuria, Flank Pain Musculoskeletal: reports: Extremity Pain. denies: Back Pain, Joint Pain Integumentary: reports: Rash (legs) Neurological: denies: Change in LOC, Change in Speech, Confusion, Dizziness, Headache, Seizure, Syncope, Weakness Hematology/Lymphatic: denies: Easily Bruised, Excessive Bleeding Psychiatric: reports: Other (noncompliant with reccomendations). denies: Altered Sleep Pattern, Anxiety, Depression Physical Examination Vital Signs: Vital Signs Temperature 98.9 F 05/08/17 14:32 Pulse Rate 85 05/08/17 21:00 Respiratory Rate 22 05/08/17 21:00 Blood Pressure 112/64 05/08/17 21:00 O2 Sat by Pulse Oximetry (%) 93 L 05/08/17 21:16 Constitutional: Yes: No Distress, Calm Eyes: Yes: Conjunctiva Clear HENT: Yes: Atraumatic Neck: Yes: Supple Cardiovascular: Yes: Regular Rate and Rhythm Respiratory: Yes: CTA Bilaterally Gastrointestinal: Yes: Soft. No: Distention, Tenderness Renal/: No: CVA Tenderness - Left, CVA Tenderness - Right, Hematuria Musculoskeletal: No: Joint Stiffness, Joint Swelling Extremities: Yes: Erythema (legs below knees) Edema: Yes (legs below knees) Integumentary: Yes: Rash (legs), Venous Stasis Changes Neurological: Yes: WNL, Alert, Oriented ...Motor Strength: WNL Psychiatric: Yes: WNL, Alert, Oriented. No: Agitated, Suicidal Ideation Labs: CBC, BMP 05/08/17 20:00 Imaging - Results Chest X-ray: Report Reviewed Other: Report Reviewed Assessment/Plan Patient is a 67-year-old male with a past medical history of hyperlipidemia, hypertension, diabetes, COPD on home O2, chronic lower leg wounds, stroke, CAD, left Fem-pop bypass, presents to the emergency department with recurrent legs cellulitis and venous stasis admit to inpt legs elevation wounds care per vascular surgery continue all other meds but decrease insulin and f/u BGM Bipap prn. O2 NC as ordered d/w pt c.w meds diet and to stop smoking f/u labs DVT falls decubs pfx d/w pt and . d/w staff d/w pt's PCP dr Ramila Louise
[2017-05-08] MEDS ORDERED: oxyCODONE HCL 5 MG TABLET PO PRN (21:57)
[2017-05-08] MEDS: BUDESONIDE/FORMETEROL FUMARATE 160/4.5 mcg INHALER IH SCH (22:05)
[2017-05-08] MEDS: INSULIN SLIDING SCALE (NOVOLOG) 1 VIAL SQ SCH (22:05)
[2017-05-08] MEDS: INSULIN DETEMIR 100 UNITS/ML MDV SQ SCH (22:05)
[2017-05-08] MEDS: ROSUVASTATIN CA 5 MG TABLET (FP) PO SCH (22:05)
[2017-05-09] MEDS ORDERED: ALBUTEROL SO4 2.5/IPRATROPIUM 0.5 INH SOL 3 ML VIAL.NEB. NEB SCH
[2017-05-09] MEDS: ALBUTEROL SO4 0.083% IH SOL 2.5 MG/3 ML VIAL.NEB. NEB SCH ×4 (00:08→18:28)
[2017-05-09] MEDS: INSULIN SLIDING SCALE (NOVOLOG) 1 VIAL SQ SCH ×4 (06:02→21:00)
[2017-05-09] MEDS: INSULIN DETEMIR 100 UNITS/ML MDV SQ SCH ×2 (07:24→20:59)
[2017-05-09 08:04] LABS: BASOPHIL 0.9 % (0-2.0); EOSINOPHIL 7.4 % (0-4.5); MCH 21.4 pg (25.7-33.7); MCHC 30.4 g/dl (32.0-35.9); MEAN CELL VOLUME 70.3 fl (80-96); MEAN PLT VOLUME 7.4 fl (7.5-11.1); NEUTROPHILS 75.7 % (42.8-82.8); PLATELET COUNT 315 K/MM3 (134-434); RDW 18.8 % (11.9-15.9); WHITE BLOOD COUNT 8.8 K/mm3 (4.0-10.0)
[2017-05-09 08:47] LABS: ALBUMIN 1.9 g/dl (3.4-5.0); ANION GAP 2 (8-16); CALCIUM 8.1 mg/dL (8.5-10.1); CO2 37 mmol/L (21-32); CREATININE 1.1 mg/dL (0.7-1.3); SGPT/ALT 11 U/L (12-78)
[2017-05-09 08:49] LABS: ALK PHOS 59 U/L (45-117); BILIRUBIN,TOTAL 0.2 mg/dL (0.2-1.0)
[2017-05-09 09:01] LABS: SGOT/AST 19 U/L (15-37)
[2017-05-09 09:08] LABS: GLUCOSE,RANDOM 28 mg/dL (74-106)
[2017-05-09] MEDS ORDERED: VANCOMYCIN 1,000 MG in DEXTROSE 5%-WATER - 250 ML IVPB SCH (10:00)
[2017-05-09 10:07] LABS: ERYTHROCYTE SEDIMENTATION RATE 52 mm/hr (0-20)
[2017-05-09] MEDS ORDERED: PT OWN MED DRAWER 7, Y5N ONE ×2 (10:08→20:16)
[2017-05-09] MEDS: CITALOPRAM HYDROBROMIDE 20 MG TABLET (FP) PO SCH (10:09)
[2017-05-09] MEDS: ACLIDINIUM BROMIDE 400 MCG/INH AERO.POWD IH SCH ×2 (10:09→20:59)
[2017-05-09] MEDS: TORSEMIDE 20 MG TABLET (FP) PO SCH (10:09)
[2017-05-09] MEDS: RANITIDINE HCL 150 MG TABLET (FP) PO SCH (10:09)
[2017-05-09] MEDS: ASPIRIN 81 MG CHEWABLE TABLETS PO SCH (10:09)
[2017-05-09] MEDS: CLOPIDOGREL BISULFATE 75 MG TABLET (FP) PO SCH (10:09)
[2017-05-09] MEDS: CHOLECALCIFEROL (VITAMIN D3) 400 UNIT TABLET (FP) PO SCH (10:10)
[2017-05-09] MEDS: BUDESONIDE/FORMETEROL FUMARATE 160/4.5 mcg INHALER IH SCH ×2 (10:12→21:00)
--- NOTE | 2017-05-09 10:17 | PN ---
Progress Note, Physician Chief Complaint: in bed NAD no new c/o had low BGM this am, received GLU, repeat BGM 117; asymptomatic; will cut Insulin more - Current Medication List Current Medications: Active Medications Acetaminophen (Tylenol -) 325 mg PO BID PRN PRN Reason: PAIN LEVEL 1-5 Acetaminophen (Tylenol -) 325 mg PO BID PRN Aclidinium Reese (Tudorza -) 1 puff IH BID [facility] Last Admin: 05/09/17 10:09 Dose: 1 puff Albuterol Sulfate (Ventolin 0.083% Nebulizer Soln -) 1 amp NEB QIDR [facility] Aspirin (Asa -) 81 mg PO DAILY [facility] Last Admin: 05/09/17 10:09 Dose: 81 mg Budesonide/Formoterol Fumarate (Symbicort 160/4.5mcg -) 2 puff IH BID [facility] Last Admin: 05/09/17 10:12 Dose: 2 puff Cholecalciferol (Vitamin D3 -) 400 unit PO DAILY [facility] Last Admin: 05/09/17 10:10 Dose: 400 unit Citalopram Hydrobromide (Celexa -) 20 mg PO DAILY [facility] Last Admin: 05/09/17 10:09 Dose: 20 mg Clopidogrel Bisulfate (Plavix -) 75 mg PO DAILY [facility] Last Admin: 05/09/17 10:09 Dose: 75 mg Vancomycin HCl 1,000 mg/ (Dextrose) 250 mls @ 250 mls/hr IVPB DAILY [facility] PRN Reason: Protocol Insulin Aspart (Novolog Vial Sliding Scale -) 1 vial SQ ACHS [facility] PRN Reason: Protocol Last Admin: 05/09/17 06:02 Dose: Not Given Insulin Detemir (Levemir Vial) 10 units SQ BID@0700,2200 [facility] Oxycodone HCl (Roxicodone -) 5 mg PO BID PRN PRN Reason: SEVERE PAIN Ranitidine HCl (Zantac -) 150 mg PO DAILY [facility] Last Admin: 05/09/17 10:09 Dose: 150 mg Rosuvastatin Calcium (Crestor -) 5 mg PO HS [facility] Last Admin: 05/08/17 22:05 Dose: 5 mg Torsemide (Demadex -) 20 mg PO DAILY [facility] Last Admin: 05/09/17 10:09 Dose: 20 mg - Objective Vital Signs: Vital Signs Temperature 97.8 F 05/09/17 10:13 Pulse Rate 67 05/09/17 10:13 Respiratory Rate 20 05/09/17 10:13 Blood Pressure 133/59 05/09/17 10:13 O2 Sat by Pulse Oximetry (%) 94 L 05/08/17 22:57 Constitutional: Yes: No Distress, Calm Eyes: Yes: Conjunctiva Clear HENT: Yes: Atraumatic Neck: Yes: Supple Cardiovascular: Yes: Regular Rate and Rhythm Respiratory: Yes: CTA Bilaterally Gastrointestinal: Yes: Soft. No: Distention, Tenderness Genitourinary: No: CVA Tenderness - Left, CVA Tenderness - Right Musculoskeletal: No: Joint Stiffness, Joint Swelling Extremities: No: Cold, Cool Edema: Yes Integumentary: Yes: Rash, Venous Stasis Changes (legs) Neurological: Yes: WNL, Alert, Oriented ...Motor Strength: WNL Psychiatric: Yes: WNL, Alert, Oriented. No: Agitated, Suicidal Ideation Labs: CBC, BMP 05/09/17 06:00 05/09/17 06:00 INR, PTT INR 1.32 (0.82-1.09) H 05/08/17 17:46 - ....Imaging Other: Report Reviewed Assessment/Plan Patient is a 67-year-old male with a past medical history of hyperlipidemia, hypertension, diabetes, COPD on home O2, chronic lower leg wounds, stroke, CAD, left Fem-pop bypass, presents to the emergency department with recurrent legs cellulitis and venous stasis legs elevation wounds care per vascular surgery continue all other meds low GLU: decrease insulin and f/u BGM Bipap prn. O2 NC as ordered d/w pt c.w meds diet and to stop smoking f/u labs DVT falls decubs pfx d/w pt and . d/w staff d/w pt's PCP dr Ramila Louise
--- NOTE | 2017-05-09 11:15 | CONSULT ---
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 leg cellulitis) Endocrine: Yes: Diabetes Mellitus Dermatology: Yes: Cellulitis (in LE), Other (R leg ulcer) - Past Surgical History Past Surgical History: Yes: Stent - Alcohol/Substance Use Hx Alcohol Use: Yes History of Substance Use: reports: None - Smoking History Smoking history: Current some day smoker Have you smoked in the past 12 months: Yes Aproximately how many cigarettes per day: 3 If you are a former smoker, when did you quit?: 6 months - Social History Usual Living Arrangement: With Spouse ADL: Independent Occupation: worked for a [employer] History of Recent Travel: No Home Medications - Allergies Allergies/Adverse Reactions: Allergies Allergy/AdvReac Type Severity Reaction Status Date / Time amoxicillin trihydrate Allergy Unknown Verified 05/08/17 14:38 [From Augmentin] potassium clavulanate Allergy Unknown Verified 05/08/17 14:38 [From Augmentin] - Home Medications Home Medications: Ambulatory Orders Aspirin [ASA -] 81 mg PO DAILY 12/27/16 Cholecalciferol (Vitamin D3) [Vitamin D -] 1 tab PO DAILY 12/27/16 Clopidogrel Bisulfate [Plavix -] 0 mg PO DAILY 12/27/16 Cyanocobalamin (Vitamin B-12) [Vitamin B-12] 1 tab PO DAILY 12/27/16 Multivit-Min/Iron Fum/Folic AC [Mtfet-Etglhqb-Wztwfgve Tablet] 1 each PO DAILY 12/27/16 Rosuvastatin [Crestor -] 0 mg PO HS 12/27/16 Tiotropium [place] [Spiriva] 17 inh PO DAILY 12/27/16 Torsemide 20 mg PO DAILY 12/27/16 Acetaminophen [Tylenol .Regular Strength -] 325 mg PO BID PRN #0 tablet Albuterol 2.5/Ipratropium 0.5 [Duoneb -] 1 amp NEB QIDR amp 01/02/17 Budesonide/Formeterol Fumarate [SYMBICORT 160/4.5mcg -] 2 puff IH BID inhaler 01/02/17 Insulin (Levemir) [Levemir Vial] 25 units SQ BID@0700,2200 ml 01/02/17 Insulin Sliding Scale [Novolog Vial Sliding Scale -] 1 vial SQ ACHS units 01/02 Nicotine Patch [Nicoderm Patch -] 14 mg TD DAILY patch 01/02/17 Ranitidine [Zantac -] 150 mg PO DAILY tablet 01/02/17 Citalopram Hydrobromide [Celexa -] 1 tab PO DAILY 04/20/17 Family Disease History - Family Disease History Family Disease History: Diabetes: Daughter Physical Exam Vital Signs: Vital Signs Temperature 97.8 F 05/09/17 10:13 Pulse Rate 67 05/09/17 10:13 Respiratory Rate 20 05/09/17 10:13 Blood Pressure 133/59 05/09/17 10:13 O2 Sat by Pulse Oximetry (%) 94 L 05/08/17 22:57 Labs: CBC, BMP 05/09/17 06:00 05/09/17 06:00 Assessment/Plan Vascular Surgery Patient is a 67-year-old male with a past medical history of hyperlipidemia, hypertension, diabetes, COPD on home O2, chronic lower leg wounds, stroke, CAD, left Fem-pop bypass, presents to the emergency department today complaining of bilateral lower leg swelling and pain. Patient states that he has chronic wounds and may have dressings that are changed every other day. Visiting nurse service came today to change his dressings and noticed that the legs were very red and weeping. They were concerned for possible infection so they sent him to the emergency department for further evaluation. Patient admits to pain in the legs, and chills. Denies fevers, malaise, chest pain, shortness of breath, palpitations, nausea, vomiting and diarrhea. Well known to vascular surgery amaris. PE head - NC/AT lung - CTA heart - RRR abd - soft,nt,nd ext - bl lower ext cellulitis. Palpable pulses. A/P Bilateral lower ext cellulitis 1. Silvadene with clifton to both legs. 2. leg elevation. Teofilo Cordon DO
--- NOTE | 2017-05-09 11:30 | CON.CARD ---
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 Follows with wound care but he had worsened erythema and drainage in legs so [facility] sent him to ER. He denies cp, palps, dizzy, loc, pnd, orthopnea. Baseline chronic sob and le edema unchanged. On abx for recurrent le cellulitis. Sees Dr Blanton for cardio. pmh: per hpi psh: le bypass social: +tobacco fam: nc ros: per hpi; no fever, diarrhea, nasal congestion, vision changes, EWING, GIB meds: Home Medications Medication Instructions Recorded Aspirin [ASA -] 81 mg PO DAILY 12/27/16 Cholecalciferol (Vitamin D3) 1 tab PO DAILY 12/27/16 [Vitamin D -] Clopidogrel Bisulfate [Plavix -] 0 mg PO DAILY 12/27/16 Cyanocobalamin (Vitamin B-12) 1 tab PO DAILY 12/27/16 [Vitamin B-12] Multivit-Min/Iron Fum/Folic AC 1 each PO DAILY 12/27/16 [Vecaf-Kyooftd-Xsabhtdy Tablet] Rosuvastatin [Crestor -] 0 mg PO HS 12/27/16 Tiotropium [place] [Spiriva] 17 inh PO DAILY 12/27/16 Torsemide 20 mg PO DAILY 12/27/16 Acetaminophen [Tylenol .Regular 325 mg PO BID PRN #0 tablet 01/02/17 Strength -] Albuterol 2.5/Ipratropium 0.5 1 amp NEB QIDR amp 01/02/17 [Duoneb -] Budesonide/Formeterol Fumarate 2 puff IH BID inhaler 01/02/17 [SYMBICORT 160/4.5mcg -] Insulin (Levemir) [Levemir Vial] 25 units SQ BID@0700,2200 ml 01/02/17 Insulin Sliding Scale [Novolog 1 vial SQ ACHS units 01/02/17 Vial Sliding Scale -] Nicotine Patch [Nicoderm Patch -] 14 mg TD DAILY patch 01/02/17 Ranitidine [Zantac -] 150 mg PO DAILY tablet 01/02/17 Citalopram Hydrobromide [Celexa -] 1 tab PO DAILY 04/20/17 pe: Vital Signs Period Temp Pulse Resp BP Sys/Mullen Pulse Ox Last 24 Hr 97.8 F-99.4 F 67-85 20-26 112-143/52-67 90-94 nad, no jvd rrr s1s2 no mrg cta bl nl eff aaox3 abd nt nd pos bs pos dp pt no jaundice diaphoresis non pitting le edema b/l with chronic stasis changes of skin, +cellulitis bl Laboratory Last Values WBC 8.8 K/mm3 (4.0-10.0) 05/09/17 06:00 RBC 5.10 M/mm3 (4.00-5.60) 05/09/17 06:00 Hgb 10.9 GM/dL (11.7-16.9) L 05/09/17 06:00 Hct 35.8 % (35.4-49) 05/09/17 06:00 MCV 70.3 fl (80-96) L 05/09/17 06:00 MCH 21.4 pg (25.7-33.7) L 05/09/17 06:00 MCHC 30.4 g/dl (32.0-35.9) L 05/09/17 06:00 RDW 18.8 % (11.9-15.9) H 05/09/17 06:00 Plt Count 315 K/MM3 (134-434) 05/09/17 06:00 MPV 7.4 fl (7.5-11.1) L 05/09/17 06:00 Neutrophils % 75.7 % (42.8-82.8) 05/09/17 06:00 Lymphocytes % 9.2 % (8-40) D 05/09/17 06:00 Monocytes % 6.8 % (3.8-10.2) 05/09/17 06:00 Eosinophils % 7.4 % (0-4.5) H D 05/09/17 06:00 Basophils % 0.9 % (0-2.0) 05/09/17 06:00 Platelet Estimate Adequate (NORMAL) 05/08/17 17:46 Platelet Comment No clumping noted 05/08/17 17:46 Hypochromic-Microcytic 1+ 05/08/17 17:46 Anisocytosis 1+ 05/08/17 17:46 Microcytosis 1+ 05/08/17 17:46 Ovalocytes Few 05/08/17 17:46 ESR 52 mm/hr (0-20) H 05/09/17 06:00 INR 1.32 (0.82-1.09) H 05/08/17 17:46 PTT (Actin FS) 32.2 SECONDS (26.9-34.4) D 05/08/17 17:46 VBG pH 7.31 (7.32-7.42) L 05/08/17 17:50 POC VBG pCO2 72.7 mmHg (38-52) H* 05/08/17 17:50 POC VBG pO2 16.3 mmHg (28-48) L* 05/08/17 17:50 Mixed VBG HCO3 35.7 meq/L (19-25) H 05/08/17 17:50 Sodium 140 mmol/L (136-145) 05/09/17 06:00 Potassium 5.3 mmol/L (3.5-5.1) H 05/09/17 06:00 Chloride 101 mmol/L (98-107) 05/09/17 06:00 Carbon Dioxide 37 mmol/L (21-32) H 05/09/17 06:00 Anion Gap 2 (8-16) L 05/09/17 06:00 BUN 15 mg/dL (7-18) 05/09/17 06:00 Creatinine 1.1 mg/dL (0.7-1.3) 05/09/17 06:00 Creat Clearance w eGFR > 60 (>60) 05/09/17 06:00 POC Glucometer 141 UNITS (()) 05/09/17 09:59 Random Glucose 28 mg/dL (74-106) L* D 05/09/17 06:00 Hemoglobin A1c % 6.9 % (4.8-6.0) H D 05/09/17 06:00 Lactic Acid 1.9 mmol/L (0.4-2.0) 05/08/17 19:57 Calcium 8.1 mg/dL (8.5-10.1) L 05/09/17 06:00 Total Bilirubin 0.2 mg/dL (0.2-1.0) D 05/09/17 06:00 AST 19 U/L (15-37) D 05/09/17 06:00 ALT 11 U/L (12-78) L 05/09/17 06:00 Alkaline Phosphatase 59 U/L (45-117) 05/09/17 06:00 Creatine Kinase 42 IU/L (39-308) 05/08/17 20:45 Troponin I < 0.02 ng/ml (0.00-0.05) 05/08/17 20:45 Total Protein 6.0 g/dl (6.4-8.2) L 05/09/17 06:00 Albumin 1.9 g/dl (3.4-5.0) L 05/09/17 06:00 Urine Color Yellow 05/08/17 17:46 Urine Appearance Clear 05/08/17 17:46 Urine pH 5.0 (5.0-8.0) 05/08/17 17:46 Ur Specific [place] 1.015 (1.005-1.025) 05/08/17 17:46 Urine Protein Negative (NEGATIVE) 05/08/17 17:46 Urine Glucose (UA) Negative (NEGATIVE) 05/08/17 17:46 Urine Ketones Negative (NEGATIVE) 05/08/17 17:46 Urine Blood Negative (NEGATIVE) 05/08/17 17:46 Urine Nitrite Negative (NEGATIVE) 05/08/17 17:46 Urine Bilirubin Negative (NEGATIVE) 05/08/17 17:46 Urine Urobilinogen Negative mg/dL (0.2-1.0) 05/08/17 17:46 Ur Leukocyte Esterase Trace (NEGATIVE) H 05/08/17 17:46 Urine RBC 1 /hpf (0-3) 05/08/17 17:46 Urine WBC 3 /hpf (3-5) 05/08/17 17:46 Ur Epithelial Cells Rare /hpf (FEW) 05/08/17 17:46 Hyaline Casts 8 /lpf 05/08/17 17:46 Urine Mucus Rare 05/08/17 17:46 ecg 04/2017: sr, prolonged pr, lbbb, no sig change priors echo 10/2012: nl lv/rv, no sig valve path echo 04/2015: TDS, non diagnostic study per report echo 11/2015: Nl LV, suboptimal views to assess for RWMA. RV not well visualized , likely nl. At least mild pulmonary HTN. Nl valves. 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 chronic venous insuff/LE edema, recurrent cellulitis: -being seen by [facility] surgery/wound team -cont po home torsemide 20 qd PAD: -prior h/o left fem-pop bypass, cont dapt, statin chronic diastolic CHF: -echoes have been unremarkable or very TDS in past, most recent 12/2016 was unremarkable -no pulm edema -no interventions have been felt warranted other than po diuretics--cont same plan here, le edema stable copd: -stable, plans per pulm htn: -stable, controlled hld: -cont statin h/o TIA (2003): -on ASA, statin for sec prevention, cont same irregular heart rhythm/abnormal ecg/Mobitz type 1 second-degree AVB: -chronic finding -event monitor for 2 weeks in 2012 showed occasional mobitz 1 without pauses -has been monitored with observation only, no sx's attributable to this have been noted, no pacing therapy has been rec'd; -no hx of afib -avoid AV arsh blockers -this is a benign rhythm with no associated incr'd risk of syncope or --PM only indicated if freq dizzy or exertional fatigue which is documented to be associated with this rhythm (e.g. on event monitor or treadmill test) -cont to observe clinically
[2017-05-09 13:54] LABS: FERRITIN 87.3 ng/ml (16.4-293.9)
--- NOTE | 2017-05-09 14:23 | PN ---
Progress Note (short form) - Note Progress Note: ID Consult dictated Recurrent bilateral LE cellulitis Possible sepsis secondary to skin source Leukocytosis Hx Grp G strep bacteremia PCN allergy Pending c/s, empiric ceftriaxone/ vancomycin Surgical evaluation
[2017-05-09] MEDS ORDERED: DEXTROSE 5%-WATER 100 ML IVPB ONE (15:02)
[2017-05-09] MEDS: SILVER SULFADIAZINE 1% TOP CREAM 50 GM JAR TP SCH (15:14)
[2017-05-09] MEDS: CEFTRIAXONE 2 GM in DEXTROSE 5%-WATER 100 ML IVPB SCH (15:14)
--- NOTE | 2017-05-09 15:53 | CONS ---
INFECTIOUS DISEASE CONSULTATION DATE OF CONSULTATION: DATE OF DICTATION: 05/09/2017 HISTORY OF PRESENT ILLNESS: The patient is a 67-year-old male with a history of recurrent bilateral lower extremity cellulitis and now readmitted with recurrence of same. He is followed in the wound care center. At the wound care center, he was noted to have increased erythema, warmth, and swelling of the lower extremities bilaterally. He also complained of worsening pain of the right lower extremity. He was evaluated in the emergency room where his white blood cell count was noted to be elevated at 12,000. He was empirically treated with vancomycin. Patient is lethargic at the present time but arousable. He denies any pain at the present time. He denies any recent fever or chills. PAST MEDICAL HISTORY: Positive for recurrent lower extremity cellulitis. He was hospitalized in December of this year for recurrent cellulitis. His course at that time was complicated by group G streptococcal bacteremia; for which, he received a 14-day course of IV ceftriaxone. Past medical history also positive for hypertension; hyperlipidemia; diabetes mellitus; chronic obstructive pulmonary disease, oxygen dependent; coronary artery disease. He denies any traumatic injury, insect or animal bites or scratches to the lower extremities. PAST SURGICAL HISTORY: Status post left lower extremity bypass. ALLERGIES: AMOXICILLIN. MEDICATIONS: Aspirin, Plavix, Crestor, Spiriva, Tylenol, insulin, Zantac, Celexa. SOCIAL HISTORY: Lives at home. Positive history of tobacco use. Occasional EtOH. SYSTEMS REVIEW: Neurologic: No loss of consciousness, seizure activity, focal weakness. Cardiac: Negative chest pain or palpitations. Respiratory: As per HPI. Gastrointestinal: Negative vomiting or diarrhea. Genitourinary: Negative for urinary tract infection. LABORATORY DATA: White count on admission 12,000, presently 8.8; hematocrit 35.8; platelet count 325. BUN 15, creatinine 1.1. ESR 52. Urinalysis: White cells 3. Culture is pending. PHYSICAL EXAMINATION: General: He is awake and alert. He is in no acute distress, lethargic but arousable. Vital Signs: Temperature 97.8; blood pressure 133/59; pulse 67, regular; respirations 18 per minute. HEENT: Sclerae anicteric. Heart: Sounds S1, S2. Lungs: Clear. Abdomen: Obese, soft, nontender. Extremities: Examination of the lower extremities: Bilateral venous stasis dermatitis. There is bilateral lower extremity erythema, warmth, and swelling, right greater than left leg. The right leg has significant erythema, warmth, and swelling from below the knee to the foot. There are several shallow-based ulcers with serous weeping. No crepitus or fluctuance. No lymphangitic streaking. Examination of the left lower extremity: Less severe cellulitis with erythema, warmth, and superficial ulcerations with serous weeping. No crepitance or fluctuance. No lymphangitis streaking. IMPRESSION: 1. Recurrent bilateral lower extremity cellulitis. 2. Possible sepsis secondary to skin source. 3. Leukocytosis. 4. History of group G streptococcus bacteremia. 5. AMOXICILLIN allergy. Pending cultures, empiric antibiotic coverage with vancomycin 2 g IV piggyback daily and vancomycin 1 g IV piggyback every 12 hours. Vascular surgery evaluation. Local wound care. Will follow. Thank you for the kind referral. DEBBIE CARMONA M.D. [id number]
[2017-05-09] MEDS: VANCOMYCIN 1 GRAM (PRE-DOCKED) 250 ML IVPB SCH (16:05)
--- NOTE | 2017-05-09 16:45 | EKG ---
Test Reason : Blood Pressure : / mmHG Vent. Rate : 073 BPM Atrial Rate : 073 BPM P-R Int : 304 ms QRS Dur : 142 ms QT Int : 440 ms P-R-T Axes : 049 -58 090 degrees QTc Int : 484 ms SINUS RHYTHM WITH 1ST DEGREE A-V BLOCK LEFT AXIS DEVIATION LEFT BUNDLE BRANCH BLOCK ABNORMAL ECG WHEN COMPARED WITH ECG OF 26-DEC-2016 16:37, DECREASE IN HEART RATE NO OTHER MAJOR CHANGE SEEN REPEAR INDICATED Confirmed by ORIANA FAM MD ([id number]) on 05/09/2017 4:44:49 PM Referred By: Confirmed By:ORIANA FAM MD
[2017-05-09] MEDS ORDERED: INSULIN (NOVOLOG) ASPART 100 UNITS/ML 10ML VIAL ONE (20:15)
[2017-05-09] MEDS: ROSUVASTATIN CA 5 MG TABLET (FP) PO SCH (20:59)
[2017-05-10] MEDS: ALBUTEROL SO4 0.083% IH SOL 2.5 MG/3 ML VIAL.NEB. NEB SCH ×4 (00:12→18:30)
[2017-05-10] MEDS: VANCOMYCIN 1 GRAM (PRE-DOCKED) 250 ML IVPB SCH ×2 (02:05→15:14)
[2017-05-10] MEDS: INSULIN DETEMIR 100 UNITS/ML MDV SQ SCH ×2 (06:34→22:30)
[2017-05-10] MEDS: INSULIN SLIDING SCALE (NOVOLOG) 1 VIAL SQ SCH ×4 (06:34→22:29)
[2017-05-10] MEDS ORDERED: PT OWN MED DRAWER 7, Y5N ONE (06:39)
[2017-05-10 08:23] LABS: MCH 21.4 pg (25.7-33.7); MCHC 30.1 g/dl (32.0-35.9); MEAN CELL VOLUME 71.1 fl (80-96); MEAN PLT VOLUME 7.6 fl (7.5-11.1); NEUTROPHILS 76.4 % (42.8-82.8); PLATELET COUNT 293 K/MM3 (134-434); RDW 18.9 % (11.9-15.9); WHITE BLOOD COUNT 6.7 K/mm3 (4.0-10.0)
[2017-05-10 08:35] LABS: ALBUMIN 1.8 g/dl (3.4-5.0); ALK PHOS 57 U/L (45-117); ANION GAP 5 (8-16); BILIRUBIN,TOTAL 0.4 mg/dL (0.2-1.0); CALCIUM 8.2 mg/dL (8.5-10.1); CO2 37 mmol/L (21-32); GLUCOSE,RANDOM 132 mg/dL (74-106); SGOT/AST 11 U/L (15-37); SGPT/ALT 8 U/L (12-78); TOT PROT 5.8 g/dl (6.4-8.2)
[2017-05-10] MEDS ORDERED: INSULIN (NOVOLOG) ASPART 100 UNITS/ML 10ML VIAL ONE (10:50)
[2017-05-10] MEDS ORDERED: DEXTROSE 5%-WATER 100 ML IVPB ONE (10:51)
[2017-05-10] MEDS: ACLIDINIUM BROMIDE 400 MCG/INH AERO.POWD IH SCH ×2 (11:22→22:32)
[2017-05-10] MEDS: BUDESONIDE/FORMETEROL FUMARATE 160/4.5 mcg INHALER IH SCH ×2 (11:22→22:31)
[2017-05-10] MEDS: CEFTRIAXONE 2 GM in DEXTROSE 5%-WATER 100 ML IVPB SCH (11:23)
[2017-05-10] MEDS: RANITIDINE HCL 150 MG TABLET (FP) PO SCH (11:24)
[2017-05-10] MEDS: CLOPIDOGREL BISULFATE 75 MG TABLET (FP) PO SCH (11:24)
[2017-05-10] MEDS: ASPIRIN 81 MG CHEWABLE TABLETS PO SCH (11:24)
[2017-05-10] MEDS: CITALOPRAM HYDROBROMIDE 20 MG TABLET (FP) PO SCH (11:24)
[2017-05-10] MEDS: TORSEMIDE 20 MG TABLET (FP) PO SCH (11:24)
[2017-05-10] MEDS: CHOLECALCIFEROL (VITAMIN D3) 400 UNIT TABLET (FP) PO SCH (11:25)
[2017-05-10] MEDS: SILVER SULFADIAZINE 1% TOP CREAM 50 GM JAR TP SCH (11:26)
--- NOTE | 2017-05-10 12:38 | PN ---
Progress Note, Physician Chief Complaint: in bed NAD, BGM better. No new c/o - Current Medication List Current Medications: Active Medications Acetaminophen (Tylenol -) 325 mg PO BID PRN PRN Reason: PAIN LEVEL 1-5 Acetaminophen (Tylenol -) 325 mg PO BID PRN Aclidinium [place] (Tudorza -) 1 puff IH BID [facility] Last Admin: 05/10/17 11:22 Dose: 1 puff Albuterol Sulfate (Ventolin 0.083% Nebulizer Soln -) 1 amp NEB QIDR [facility] Last Admin: 05/10/17 11:25 Dose: 1 amp Aspirin (Asa -) 81 mg PO DAILY [facility] Last Admin: 05/10/17 11:24 Dose: 81 mg Budesonide/Formoterol Fumarate (Symbicort 160/4.5mcg -) 2 puff IH BID [facility] Last Admin: 05/10/17 11:22 Dose: 2 puff Cholecalciferol (Vitamin D3 -) 400 unit PO DAILY [facility] Last Admin: 05/10/17 11:25 Dose: 400 unit Citalopram Hydrobromide (Celexa -) 20 mg PO DAILY [facility] Last Admin: 05/10/17 11:24 Dose: 20 mg Clopidogrel Bisulfate (Plavix -) 75 mg PO DAILY [facility] Last Admin: 05/10/17 11:24 Dose: 75 mg Ceftriaxone Sodium 2 gm/ (Dextrose) 100 mls @ 200 mls/hr IVPB DAILY [facility] Last Admin: 05/10/17 11:23 Dose: 200 mls/hr Vancomycin HCl (Vancomycin (Pre-Docked)) 250 mls @ 166.667 mls/hr IVPB Q12H [facility] Last Admin: 05/10/17 02:05 Dose: 166.667 mls/hr Insulin Aspart (Novolog Vial Sliding Scale -) 1 vial SQ ACHS [facility] PRN Reason: Protocol Last Admin: 05/10/17 12:05 Dose: 8 units Insulin Detemir (Levemir Vial) 10 units SQ BID@0700,2200 [facility] Last Admin: 05/10/17 06:34 Dose: 10 units Oxycodone HCl (Roxicodone -) 5 mg PO BID PRN PRN Reason: SEVERE PAIN Ranitidine HCl (Zantac -) 150 mg PO DAILY [facility] Last Admin: 05/10/17 11:24 Dose: 150 mg Rosuvastatin Calcium (Crestor -) 5 mg PO HS [facility] Last Admin: 05/09/17 20:59 Dose: 5 mg Silver Sulfadiazine (Silvadene -) 1 applic TP DAILY [facility] Last Admin: 05/10/17 11:26 Dose: 1 applic Torsemide (Demadex -) 20 mg PO DAILY [facility] Last Admin: 05/10/17 11:24 Dose: 20 mg - Objective Vital Signs: Vital Signs Temperature 98.2 F 05/10/17 06:38 Pulse Rate 61 05/10/17 06:38 Respiratory Rate 20 05/10/17 06:38 Blood Pressure 133/62 05/10/17 06:38 O2 Sat by Pulse Oximetry (%) 98 05/09/17 23:00 Constitutional: Yes: No Distress, Calm Eyes: Yes: Conjunctiva Clear HENT: Yes: Atraumatic Neck: Yes: Supple Cardiovascular: Yes: Regular Rate and Rhythm Respiratory: Yes: CTA Bilaterally Gastrointestinal: Yes: Soft. No: Distention, Tenderness Genitourinary: No: CVA Tenderness - Left, CVA Tenderness - Right Musculoskeletal: No: Joint Stiffness, Joint Swelling Extremities: No: Cold, Cool Edema: Yes Integumentary: Yes: Rash, Venous Stasis Changes Neurological: Yes: WNL, Alert, Oriented ...Motor Strength: WNL Psychiatric: Yes: WNL, Alert, Oriented. No: Agitated, Suicidal Ideation Labs: CBC, BMP 05/10/17 06:10 05/10/17 06:10 INR, PTT INR 1.32 (0.82-1.09) H 05/08/17 17:46 - ....Imaging Other: Report Reviewed Assessment/Plan Patient is a 67-year-old male with a past medical history of hyperlipidemia, hypertension, diabetes, COPD on home O2, chronic lower leg wounds, stroke, CAD, left Fem-pop bypass, presents to the emergency department with recurrent legs cellulitis and venous stasis legs elevation; IV ATB per ID; wounds care per vascular surgery continue all other meds better GLU: decreased insulin, f/u BGM Bipap prn. O2 NC as ordered d/w pt c.w meds diet and to stop smoking f/u labs DVT falls decubs pfx d/w pt and . d/w staff d/w pt's PCP dr Ramila Louise
[2017-05-10] MEDS: ROSUVASTATIN CA 5 MG TABLET (FP) PO SCH (22:30)
[2017-05-11] MEDS: ALBUTEROL SO4 0.083% IH SOL 2.5 MG/3 ML VIAL.NEB. NEB SCH ×5 (00:13→23:59)
[2017-05-11] MEDS: VANCOMYCIN 1 GRAM (PRE-DOCKED) 250 ML IVPB SCH ×2 (02:13→15:14)
[2017-05-11] MEDS ORDERED: PT OWN MED DRAWER 7, Y5N ONE ×2 (05:26→20:44)
[2017-05-11] MEDS: INSULIN SLIDING SCALE (NOVOLOG) 1 VIAL SQ SCH ×4 (06:49→21:35)
[2017-05-11] MEDS: INSULIN DETEMIR 100 UNITS/ML MDV SQ SCH ×2 (06:50→21:38)
[2017-05-11] MEDS ORDERED: INSULIN (NOVOLOG) ASPART 100 UNITS/ML 10ML VIAL ONE (07:13)
[2017-05-11] MEDS ORDERED: INSULIN DETEMIR 100 UNITS/ML MDV SQ ONE (07:13)
[2017-05-11] MEDS ORDERED: DEXTROSE 5%-WATER 100 ML IVPB ONE (09:14)
[2017-05-11] MEDS: TORSEMIDE 20 MG TABLET (FP) PO SCH (09:29)
[2017-05-11] MEDS: CLOPIDOGREL BISULFATE 75 MG TABLET (FP) PO SCH (09:29)
[2017-05-11] MEDS: BUDESONIDE/FORMETEROL FUMARATE 160/4.5 mcg INHALER IH SCH ×2 (09:29→21:34)
[2017-05-11] MEDS: RANITIDINE HCL 150 MG TABLET (FP) PO SCH (09:29)
[2017-05-11] MEDS: CITALOPRAM HYDROBROMIDE 20 MG TABLET (FP) PO SCH (09:29)
[2017-05-11] MEDS: ACLIDINIUM BROMIDE 400 MCG/INH AERO.POWD IH SCH ×2 (09:29→21:35)
[2017-05-11] MEDS: ASPIRIN 81 MG CHEWABLE TABLETS PO SCH (09:30)
[2017-05-11] MEDS: CEFTRIAXONE 2 GM in DEXTROSE 5%-WATER 100 ML IVPB SCH (09:34)
--- NOTE | 2017-05-11 10:00 | PN ---
Progress Note, Physician Chief Complaint: pt went downstairs (his own decision did not inform the staff or me) to smoke and also bought a large cookie chocolate chips; d/w pt again ADA diet and stop smoking; aware also; pt understands risks and consequences of his behaviour but does not seem to mind and seems to me he does not like to be told what to do - Current Medication List Current Medications: Active Medications Acetaminophen (Tylenol -) 325 mg PO BID PRN PRN Reason: PAIN LEVEL 1-5 Acetaminophen (Tylenol -) 325 mg PO BID PRN Aclidinium [place] (Tudorza -) 1 puff IH BID [facility] Last Admin: 05/11/17 09:29 Dose: 1 puff Albuterol Sulfate (Ventolin 0.083% Nebulizer Soln -) 1 amp NEB QIDR [facility] Last Admin: 05/11/17 07:00 Dose: 1 amp Aspirin (Asa -) 81 mg PO DAILY [facility] Last Admin: 05/11/17 09:30 Dose: 81 mg Budesonide/Formoterol Fumarate (Symbicort 160/4.5mcg -) 2 puff IH BID [facility] Last Admin: 05/11/17 09:29 Dose: 2 puff Cholecalciferol (Vitamin D3 -) 400 unit PO DAILY [facility] Last Admin: 05/10/17 11:25 Dose: 400 unit Citalopram Hydrobromide (Celexa -) 20 mg PO DAILY [facility] Last Admin: 05/11/17 09:29 Dose: 20 mg Clopidogrel Bisulfate (Plavix -) 75 mg PO DAILY [facility] Last Admin: 05/11/17 09:29 Dose: 75 mg Ceftriaxone Sodium 2 gm/ (Dextrose) 100 mls @ 200 mls/hr IVPB DAILY [facility] Last Admin: 05/11/17 09:34 Dose: 200 mls/hr Vancomycin HCl (Vancomycin (Pre-Docked)) 250 mls @ 166.667 mls/hr IVPB Q12H [facility] Last Admin: 05/11/17 02:13 Dose: 166.667 mls/hr Insulin Aspart (Novolog Vial Sliding Scale -) 1 vial SQ ACHS [facility] PRN Reason: Protocol Last Admin: 05/11/17 06:49 Dose: Not Given Insulin Detemir (Levemir Vial) 10 units SQ BID@0700,2200 [facility] Last Admin: 05/11/17 06:50 Dose: 10 units Oxycodone HCl (Roxicodone -) 5 mg PO BID PRN PRN Reason: SEVERE PAIN Ranitidine HCl (Zantac -) 150 mg PO DAILY [facility] Last Admin: 05/11/17 09:29 Dose: 150 mg Rosuvastatin Calcium (Crestor -) 5 mg PO HS [facility] Last Admin: 05/10/17 22:30 Dose: 5 mg Silver Sulfadiazine (Silvadene -) 1 applic TP DAILY [facility] Last Admin: 05/10/17 11:26 Dose: 1 applic Torsemide (Demadex -) 20 mg PO DAILY [facility] Last Admin: 05/11/17 09:29 Dose: 20 mg - Objective Vital Signs: Vital Signs Temperature 98.1 F 05/11/17 06:00 Pulse Rate 66 05/11/17 06:00 Respiratory Rate 18 05/11/17 06:00 Blood Pressure 131/56 05/11/17 06:00 O2 Sat by Pulse Oximetry (%) 95 05/10/17 21:00 Constitutional: Yes: No Distress, Calm Eyes: Yes: Conjunctiva Clear HENT: Yes: Atraumatic Neck: Yes: Supple Cardiovascular: Yes: Regular Rate and Rhythm Respiratory: Yes: CTA Bilaterally Gastrointestinal: Yes: Soft. No: Distention, Tenderness Genitourinary: No: CVA Tenderness - Left, CVA Tenderness - Right, Hematuria Musculoskeletal: No: Joint Stiffness, Joint Swelling Extremities: Yes: Erythema. No: Cold, Cool Edema: Yes Integumentary: Yes: Rash, Venous Stasis Changes Neurological: Yes: WNL, Alert, Oriented ...Motor Strength: WNL Psychiatric: Yes: WNL, Alert, Oriented. No: Agitated, Suicidal Ideation Labs: CBC, BMP 05/10/17 06:10 05/10/17 06:10 INR, PTT INR 1.32 (0.82-1.09) H 05/08/17 17:46 - ....Imaging Other: Report Reviewed Assessment/Plan Patient is a 67-year-old male with a past medical history of hyperlipidemia, hypertension, diabetes, COPD on home O2, chronic lower leg wounds, stroke, CAD, left Fem-pop bypass, presents to the emergency department with recurrent legs cellulitis and venous stasis legs elevation; IV ATB per ID; wounds care per vascular surgery continue all other meds better GLU: decreased insulin, f/u BGM Bipap prn. O2 NC as ordered d/w pt c.w meds, ADA diet and to stop smoking f/u labs DVT falls decubs pfx d/w pt and . d/w staff; said she will be away next week and inquired about NH / rehab placement from at the time of DC; pt seems to agree with it.
[2017-05-11] MEDS: CHOLECALCIFEROL (VITAMIN D3) 400 UNIT TABLET (FP) PO SCH (10:48)
--- NOTE | 2017-05-11 13:53 | PN ---
Progress Note, Physician History of Present Illness: No c/o leg pain at rest Afebrile WBC WNL Wound c/s MRSA, grp C strep - Current Medication List Current Medications: Active Medications Acetaminophen (Tylenol -) 325 mg PO BID PRN PRN Reason: PAIN LEVEL 1-5 Acetaminophen (Tylenol -) 325 mg PO BID PRN Aclidinium [place] (Tudorza -) 1 puff IH BID [facility] Last Admin: 05/11/17 09:29 Dose: 1 puff Albuterol Sulfate (Ventolin 0.083% Nebulizer Soln -) 1 amp NEB QIDR [facility] Last Admin: 05/11/17 11:00 Dose: 1 amp Aspirin (Asa -) 81 mg PO DAILY [facility] Last Admin: 05/11/17 09:30 Dose: 81 mg Budesonide/Formoterol Fumarate (Symbicort 160/4.5mcg -) 2 puff IH BID [facility] Last Admin: 05/11/17 09:29 Dose: 2 puff Cholecalciferol (Vitamin D3 -) 400 unit PO DAILY [facility] Last Admin: 05/11/17 10:48 Dose: 400 unit Citalopram Hydrobromide (Celexa -) 20 mg PO DAILY [facility] Last Admin: 05/11/17 09:29 Dose: 20 mg Clopidogrel Bisulfate (Plavix -) 75 mg PO DAILY [facility] Last Admin: 05/11/17 09:29 Dose: 75 mg Ceftriaxone Sodium 2 gm/ (Dextrose) 100 mls @ 200 mls/hr IVPB DAILY [facility] Last Admin: 05/11/17 09:34 Dose: 200 mls/hr Vancomycin HCl (Vancomycin (Pre-Docked)) 250 mls @ 166.667 mls/hr IVPB Q12H [facility] Last Admin: 05/11/17 02:13 Dose: 166.667 mls/hr Insulin Aspart (Novolog Vial Sliding Scale -) 1 vial SQ ACHS [facility] PRN Reason: Protocol Last Admin: 05/11/17 12:20 Dose: 2 units Insulin Detemir (Levemir Vial) 10 units SQ BID@0700,2200 [facility] Last Admin: 05/11/17 06:50 Dose: 10 units Oxycodone HCl (Roxicodone -) 5 mg PO BID PRN PRN Reason: SEVERE PAIN Ranitidine HCl (Zantac -) 150 mg PO DAILY [facility] Last Admin: 05/11/17 09:29 Dose: 150 mg Rosuvastatin Calcium (Crestor -) 5 mg PO HS [facility] Last Admin: 05/10/17 22:30 Dose: 5 mg Silver Sulfadiazine (Silvadene -) 1 applic TP DAILY [facility] Last Admin: 05/10/17 11:26 Dose: 1 applic Torsemide (Demadex -) 20 mg PO DAILY [facility] Last Admin: 05/11/17 09:29 Dose: 20 mg - Objective Vital Signs: Vital Signs Temperature 98.4 F 05/11/17 13:26 Pulse Rate 105 H 05/11/17 13:26 Respiratory Rate 05/11/17 13:26 Blood Pressure 149/77 05/11/17 13:26 O2 Sat by Pulse Oximetry (%) 91 L 05/11/17 13:37 Constitutional: Yes: No Distress Eyes: Yes: Conjunctiva Clear Cardiovascular: Yes: Regular Rate and Rhythm, S1, S2 Respiratory: Yes: CTA Bilaterally Gastrointestinal: Yes: Normal Bowel Sounds. No: Tenderness Extremities: Yes: Other (+ bilateral LE edema, erythema R>L Shallow-based ulcers LE bilat R>L) Labs: CBC, BMP 05/10/17 06:10 05/10/17 06:10 INR, PTT INR 1.32 (0.82-1.09) H 05/08/17 17:46 Assessment/Plan Bilateral LE cellulitis R>L +Wound c/s MRSA Leukocytosis-resolved PCN allergy Continue vancomycin D/C ceftriaxone Local wound care
[2017-05-11] MEDS: SILVER SULFADIAZINE 1% TOP CREAM 50 GM JAR TP SCH (15:14)
[2017-05-11] MEDS: ROSUVASTATIN CA 5 MG TABLET (FP) PO SCH (21:35)
[2017-05-12] MEDS: VANCOMYCIN 1 GRAM (PRE-DOCKED) 250 ML IVPB SCH ×2 (02:06→15:30)
[2017-05-12] MEDS: INSULIN SLIDING SCALE (NOVOLOG) 1 VIAL SQ SCH ×4 (06:30→22:54)
[2017-05-12] MEDS: INSULIN DETEMIR 100 UNITS/ML MDV SQ SCH ×2 (06:31→22:54)
[2017-05-12] MEDS: ALBUTEROL SO4 0.083% IH SOL 2.5 MG/3 ML VIAL.NEB. NEB SCH ×3 (06:35→17:08)
[2017-05-12] MEDS ORDERED: PT OWN MED DRAWER 7, Y5N ONE ×3 (09:25→22:38)
[2017-05-12] MEDS: TORSEMIDE 20 MG TABLET (FP) PO SCH (09:29)
[2017-05-12] MEDS: CLOPIDOGREL BISULFATE 75 MG TABLET (FP) PO SCH (09:30)
[2017-05-12] MEDS: ASPIRIN 81 MG CHEWABLE TABLETS PO SCH (09:30)
[2017-05-12] MEDS: CITALOPRAM HYDROBROMIDE 20 MG TABLET (FP) PO SCH (09:30)
[2017-05-12] MEDS: NICOTINE 14 MG/24 HOURS TOPICAL PATCH TD SCH (09:30)
[2017-05-12] MEDS: RANITIDINE HCL 150 MG TABLET (FP) PO SCH (09:30)
[2017-05-12] MEDS: CHOLECALCIFEROL (VITAMIN D3) 400 UNIT TABLET (FP) PO SCH (09:31)
--- NOTE | 2017-05-12 10:20 | PN ---
Progress Note, Physician Chief Complaint: in bed NAD BGM OK had some dry cough (went to smoke yesterday) CXR c/w atelectasis - incentive spirometry ordered; strongly advised stop smoking; pt informed should not leave the floor without informing H staff and having permission to leave the floor - Current Medication List Current Medications: Active Medications Acetaminophen (Tylenol -) 325 mg PO BID PRN PRN Reason: PAIN LEVEL 1-5 Acetaminophen (Tylenol -) 325 mg PO BID PRN Aclidinium [place] (Tudorza -) 1 puff IH BID [facility] Last Admin: 05/11/17 21:35 Dose: 1 puff Albuterol Sulfate (Ventolin 0.083% Nebulizer Soln -) 1 amp NEB QIDR [facility] Last Admin: 05/12/17 06:35 Dose: 1 amp Aspirin (Asa -) 81 mg PO DAILY [facility] Last Admin: 05/12/17 09:30 Dose: 81 mg Budesonide/Formoterol Fumarate (Symbicort 160/4.5mcg -) 2 puff IH BID [facility] Last Admin: 05/11/17 21:34 Dose: 2 puff Cholecalciferol (Vitamin D3 -) 400 unit PO DAILY [facility] Last Admin: 05/12/17 09:31 Dose: 400 unit Citalopram Hydrobromide (Celexa -) 20 mg PO DAILY [facility] Last Admin: 05/12/17 09:30 Dose: 20 mg Clopidogrel Bisulfate (Plavix -) 75 mg PO DAILY [facility] Last Admin: 05/12/17 09:30 Dose: 75 mg Vancomycin HCl (Vancomycin (Pre-Docked)) 250 mls @ 166.667 mls/hr IVPB Q12H [facility] Last Admin: 05/12/17 02:06 Dose: 166.667 mls/hr Insulin Aspart (Novolog Vial Sliding Scale -) 1 vial SQ ACHS [facility] PRN Reason: Protocol Last Admin: 05/12/17 06:30 Dose: Not Given Insulin Detemir (Levemir Vial) 10 units SQ BID@0700,2200 [facility] Last Admin: 05/12/17 06:31 Dose: 10 units Nicotine (Nicoderm Patch -) 14 mg TD DAILY [facility] Last Admin: 05/12/17 09:30 Dose: 14 mg Oxycodone HCl (Roxicodone -) 5 mg PO BID PRN PRN Reason: SEVERE PAIN Ranitidine HCl (Zantac -) 150 mg PO DAILY [facility] Last Admin: 05/12/17 09:30 Dose: 150 mg Rosuvastatin Calcium (Crestor -) 5 mg PO HS [facility] Last Admin: 05/11/17 21:35 Dose: 5 mg Silver Sulfadiazine (Silvadene -) 1 applic TP DAILY [facility] Last Admin: 05/11/17 15:14 Dose: 1 applic Torsemide (Demadex -) 20 mg PO DAILY [facility] Last Admin: 05/12/17 09:29 Dose: 20 mg - Objective Vital Signs: Vital Signs Temperature 97.8 F 05/12/17 06:00 Pulse Rate 69 05/12/17 06:00 Respiratory Rate 20 05/12/17 06:00 Blood Pressure 131/58 05/12/17 06:00 O2 Sat by Pulse Oximetry (%) 99 05/12/17 02:19 Constitutional: Yes: No Distress, Calm Eyes: Yes: Conjunctiva Clear HENT: Yes: Atraumatic Neck: Yes: Supple Cardiovascular: Yes: Regular Rate and Rhythm Respiratory: Yes: Diminished Gastrointestinal: Yes: Soft. No: Distention, Tenderness Genitourinary: No: CVA Tenderness - Left, CVA Tenderness - Right, Hematuria Musculoskeletal: No: Joint Stiffness, Joint Swelling Extremities: No: Cold, Cool Edema: Yes (less) Integumentary: Yes: Rash (less), Venous Stasis Changes Neurological: Yes: WNL, Alert, Oriented ...Motor Strength: WNL Psychiatric: Yes: WNL, Alert, Oriented. No: Agitated Labs: CBC, BMP 05/10/17 06:10 05/10/17 06:10 INR, PTT INR 1.32 (0.82-1.09) H 05/08/17 17:46 - ....Imaging Other: Report Reviewed Assessment/Plan Patient is a 67-year-old male with a past medical history of hyperlipidemia, hypertension, diabetes, COPD on home O2, chronic lower leg wounds, stroke, CAD, left Fem-pop bypass, presents to the emergency department with recurrent legs cellulitis and venous stasis legs elevation; IV ATB per ID; wounds care per vascular surgery continue all other meds better GLU: decreased insulin, f/u BGM Bipap prn. O2 NC as ordered d/w pt c.w meds, ADA diet and to stop smoking f/u labs incentive spirometry DVT falls decubs pfx d/w pt and staff
[2017-05-12] MEDS: BUDESONIDE/FORMETEROL FUMARATE 160/4.5 mcg INHALER IH SCH ×2 (11:25→22:54)
[2017-05-12] MEDS: ACLIDINIUM BROMIDE 400 MCG/INH AERO.POWD IH SCH ×2 (11:25→22:54)
--- NOTE | 2017-05-12 14:51 | PN ---
Progress Note, Physician History of Present Illness: Awake, alert No c/o leg pain No fever/ chills Tolerating vancomycin Level pending - Current Medication List Current Medications: Active Medications Acetaminophen (Tylenol -) 325 mg PO BID PRN PRN Reason: PAIN LEVEL 1-5 Acetaminophen (Tylenol -) 325 mg PO BID PRN Aclidinium [place] (Tudorza -) 1 puff IH BID [facility] Last Admin: 05/11/17 21:35 Dose: 1 puff Albuterol Sulfate (Ventolin 0.083% Nebulizer Soln -) 1 amp NEB QIDR [facility] Last Admin: 05/12/17 11:18 Dose: 1 amp Aspirin (Asa -) 81 mg PO DAILY [facility] Last Admin: 05/12/17 09:30 Dose: 81 mg Budesonide/Formoterol Fumarate (Symbicort 160/4.5mcg -) 2 puff IH BID [facility] Last Admin: 05/11/17 21:34 Dose: 2 puff Cholecalciferol (Vitamin D3 -) 400 unit PO DAILY [facility] Last Admin: 05/12/17 09:31 Dose: 400 unit Citalopram Hydrobromide (Celexa -) 20 mg PO DAILY [facility] Last Admin: 05/12/17 09:30 Dose: 20 mg Clopidogrel Bisulfate (Plavix -) 75 mg PO DAILY [facility] Last Admin: 05/12/17 09:30 Dose: 75 mg Vancomycin HCl (Vancomycin (Pre-Docked)) 250 mls @ 166.667 mls/hr IVPB Q12H [facility] Last Admin: 05/12/17 02:06 Dose: 166.667 mls/hr Insulin Aspart (Novolog Vial Sliding Scale -) 1 vial SQ ACHS [facility] PRN Reason: Protocol Last Admin: 05/12/17 12:23 Dose: Not Given Insulin Detemir (Levemir Vial) 10 units SQ BID@0700,2200 [facility] Last Admin: 05/12/17 06:31 Dose: 10 units Nicotine (Nicoderm Patch -) 14 mg TD DAILY [facility] Last Admin: 05/12/17 09:30 Dose: 14 mg Oxycodone HCl (Roxicodone -) 5 mg PO BID PRN PRN Reason: SEVERE PAIN Ranitidine HCl (Zantac -) 150 mg PO DAILY [facility] Last Admin: 05/12/17 09:30 Dose: 150 mg Rosuvastatin Calcium (Crestor -) 5 mg PO HS [facility] Last Admin: 05/11/17 21:35 Dose: 5 mg Silver Sulfadiazine (Silvadene -) 1 applic TP DAILY [facility] Last Admin: 05/11/17 15:14 Dose: 1 applic Torsemide (Demadex -) 20 mg PO DAILY [facility] Last Admin: 05/12/17 09:29 Dose: 20 mg - Objective Vital Signs: Vital Signs Temperature 97.9 F 05/12/17 10:00 Pulse Rate 71 05/12/17 10:00 Respiratory Rate 20 05/12/17 10:00 Blood Pressure 148/56 05/12/17 10:00 O2 Sat by Pulse Oximetry (%) 99 05/12/17 02:19 Constitutional: Yes: No Distress Eyes: Yes: Conjunctiva Clear Cardiovascular: Yes: Regular Rate and Rhythm, S1, S2 Respiratory: Yes: CTA Bilaterally Gastrointestinal: Yes: Normal Bowel Sounds, Soft. No: Tenderness Extremities: Yes: Other (decreased erythema/ swelling LE bilaterally) Labs: CBC, BMP 05/10/17 06:10 05/10/17 06:10 INR, PTT INR 1.32 (0.82-1.09) H 05/08/17 17:46 Assessment/Plan Bilateral LE cellulitis R>L improved +Wound c/s MRSA Leukocytosis-resolved PCN allergy Continue vancomycin Check trough level Local wound care
[2017-05-12] MEDS: SILVER SULFADIAZINE 1% TOP CREAM 50 GM JAR TP SCH (15:26)
[2017-05-12] MEDS: ROSUVASTATIN CA 5 MG TABLET (FP) PO SCH (22:54)
[2017-05-13] MEDS: ALBUTEROL SO4 0.083% IH SOL 2.5 MG/3 ML VIAL.NEB. NEB SCH ×4 (06:30→17:45)
[2017-05-13] MEDS: INSULIN SLIDING SCALE (NOVOLOG) 1 VIAL SQ SCH ×4 (06:32→21:47)
[2017-05-13] MEDS: INSULIN DETEMIR 100 UNITS/ML MDV SQ SCH ×2 (06:35→21:41)
[2017-05-13] MEDS: RANITIDINE HCL 150 MG TABLET (FP) PO SCH (09:36)
[2017-05-13] MEDS: CHOLECALCIFEROL (VITAMIN D3) 400 UNIT TABLET (FP) PO SCH (09:36)
[2017-05-13] MEDS: NICOTINE 14 MG/24 HOURS TOPICAL PATCH TD SCH (09:36)
[2017-05-13] MEDS: CITALOPRAM HYDROBROMIDE 20 MG TABLET (FP) PO SCH (09:36)
[2017-05-13] MEDS: CLOPIDOGREL BISULFATE 75 MG TABLET (FP) PO SCH (09:36)
[2017-05-13] MEDS: TORSEMIDE 20 MG TABLET (FP) PO SCH (09:36)
[2017-05-13] MEDS: ASPIRIN 81 MG CHEWABLE TABLETS PO SCH (09:36)
[2017-05-13] MEDS: BUDESONIDE/FORMETEROL FUMARATE 160/4.5 mcg INHALER IH SCH ×2 (09:37→21:47)
[2017-05-13] MEDS: ACLIDINIUM BROMIDE 400 MCG/INH AERO.POWD IH SCH ×2 (09:37→21:47)
--- NOTE | 2017-05-13 11:48 | PN ---
Progress Note, Physician Chief Complaint: in bed NAD no new c/o; legs better no CP/SOB; afebrile BGM better - Current Medication List Current Medications: Active Medications Acetaminophen (Tylenol -) 325 mg PO BID PRN PRN Reason: PAIN LEVEL 1-5 Acetaminophen (Tylenol -) 325 mg PO BID PRN Aclidinium [place] (Tudorza -) 1 puff IH BID [facility] Last Admin: 05/13/17 09:37 Dose: 1 puff Albuterol Sulfate (Ventolin 0.083% Nebulizer Soln -) 1 amp NEB QIDR [facility] Last Admin: 05/13/17 11:41 Dose: 1 amp Aspirin (Asa -) 81 mg PO DAILY [facility] Last Admin: 05/13/17 09:36 Dose: 81 mg Budesonide/Formoterol Fumarate (Symbicort 160/4.5mcg -) 2 puff IH BID [facility] Last Admin: 05/13/17 09:37 Dose: 2 puff Cholecalciferol (Vitamin D3 -) 400 unit PO DAILY [facility] Last Admin: 05/13/17 09:36 Dose: 400 unit Citalopram Hydrobromide (Celexa -) 20 mg PO DAILY [facility] Last Admin: 05/13/17 09:36 Dose: 20 mg Clopidogrel Bisulfate (Plavix -) 75 mg PO DAILY [facility] Last Admin: 05/13/17 09:36 Dose: 75 mg Insulin Aspart (Novolog Vial Sliding Scale -) 1 vial SQ ACHS [facility] PRN Reason: Protocol Last Admin: 05/13/17 06:32 Dose: Not Given Insulin Detemir (Levemir Vial) 10 units SQ BID@0700,2200 [facility] Last Admin: 05/13/17 06:35 Dose: 10 units Nicotine (Nicoderm Patch -) 14 mg TD DAILY [facility] Last Admin: 05/13/17 09:36 Dose: 14 mg Oxycodone HCl (Roxicodone -) 5 mg PO BID PRN PRN Reason: SEVERE PAIN Ranitidine HCl (Zantac -) 150 mg PO DAILY [facility] Last Admin: 05/13/17 09:36 Dose: 150 mg Rosuvastatin Calcium (Crestor -) 5 mg PO HS [facility] Last Admin: 05/12/17 22:54 Dose: 5 mg Silver Sulfadiazine (Silvadene -) 1 applic TP DAILY [facility] Last Admin: 05/12/17 15:26 Dose: 1 applic Torsemide (Demadex -) 20 mg PO DAILY [facility] Last Admin: 05/13/17 09:36 Dose: 20 mg - Objective Vital Signs: Vital Signs Temperature 97.6 F 05/13/17 09:00 Pulse Rate 75 05/13/17 10:00 Respiratory Rate 18 05/13/17 09:00 Blood Pressure 145/76 05/13/17 09:00 O2 Sat by Pulse Oximetry (%) 99 05/13/17 10:00 Constitutional: Yes: No Distress, Calm Eyes: Yes: Conjunctiva Clear HENT: Yes: Atraumatic Neck: Yes: Supple Cardiovascular: Yes: Regular Rate and Rhythm Respiratory: Yes: CTA Bilaterally Gastrointestinal: Yes: Soft. No: Distention, Tenderness Genitourinary: No: CVA Tenderness - Left, CVA Tenderness - Right Musculoskeletal: No: Joint Stiffness, Joint Swelling Extremities: Yes: Erythema. No: Cold, Cool Edema: Yes (less) Integumentary: Yes: Rash (better), Venous Stasis Changes Neurological: Yes: WNL, Alert, Oriented ...Motor Strength: WNL Psychiatric: Yes: WNL, Alert, Oriented. No: Agitated, Suicidal Ideation Labs: CBC, BMP 05/10/17 06:10 05/10/17 06:10 INR, PTT INR 1.32 (0.82-1.09) H 05/08/17 17:46 - ....Imaging Other: Report Reviewed Assessment/Plan Patient is a 67-year-old male with a past medical history of hyperlipidemia, hypertension, diabetes, COPD on home O2, chronic lower leg wounds, stroke, CAD, left Fem-pop bypass, presents to the emergency department with recurrent legs cellulitis and venous stasis legs elevation; IV ATB per ID; wounds care per vascular surgery continue all other meds better GLU: decreased insulin, f/u BGM Bipap prn. O2 NC as ordered d/w pt c.w meds, ADA diet and to stop smoking f/u labs incentive spirometry DVT falls decubs pfx d/w pt and staff
[2017-05-13] MEDS: SILVER SULFADIAZINE 1% TOP CREAM 50 GM JAR TP SCH (15:00)
[2017-05-13] MEDS ORDERED: INSULIN (NOVOLOG) ASPART 100 UNITS/ML 10ML VIAL ONE (21:09)
[2017-05-13] MEDS: ROSUVASTATIN CA 5 MG TABLET (FP) PO SCH (21:41)
[2017-05-14] MEDS: ALBUTEROL SO4 0.083% IH SOL 2.5 MG/3 ML VIAL.NEB. NEB SCH ×4 (00:03→17:59)
[2017-05-14] MEDS: INSULIN SLIDING SCALE (NOVOLOG) 1 VIAL SQ SCH ×4 (06:16→21:39)
[2017-05-14] MEDS: INSULIN DETEMIR 100 UNITS/ML MDV SQ SCH ×2 (06:32→21:40)
[2017-05-14 07:46] LABS: BASOPHIL 1.1 % (0-2.0); EOSINOPHIL 11.2 % (0-4.5); MCHC 29.7 g/dl (32.0-35.9); MEAN CELL VOLUME 70.5 fl (80-96); MEAN PLT VOLUME 7.4 fl (7.5-11.1); NEUTROPHILS 72.5 % (42.8-82.8); PLATELET COUNT 327 K/MM3 (134-434); RDW 18.5 % (11.9-15.9); WHITE BLOOD COUNT 7.6 K/mm3 (4.0-10.0)
[2017-05-14 08:23] LABS: ALBUMIN 2.1 g/dl (3.4-5.0); ALK PHOS 54 U/L (45-117); ANION GAP 2 (8-16); BILIRUBIN,TOTAL 0.2 mg/dL (0.2-1.0); CALCIUM 8.4 mg/dL (8.5-10.1); CO2 40 mmol/L (21-32); GLUCOSE,RANDOM 93 mg/dL (74-106); SGOT/AST 9 U/L (15-37); SGPT/ALT 11 U/L (12-78); TOT PROT 6.1 g/dl (6.4-8.2)
[2017-05-14] MEDS ORDERED: PT OWN MED DRAWER 7, Y5N ONE ×3 (09:24→20:45)
[2017-05-14] MEDS: CITALOPRAM HYDROBROMIDE 20 MG TABLET (FP) PO SCH (09:32)
[2017-05-14] MEDS: RANITIDINE HCL 150 MG TABLET (FP) PO SCH (09:32)
[2017-05-14] MEDS: TORSEMIDE 20 MG TABLET (FP) PO SCH (09:32)
[2017-05-14] MEDS: CLOPIDOGREL BISULFATE 75 MG TABLET (FP) PO SCH (09:32)
[2017-05-14] MEDS: NICOTINE 14 MG/24 HOURS TOPICAL PATCH TD SCH (09:32)
[2017-05-14] MEDS: ASPIRIN 81 MG CHEWABLE TABLETS PO SCH (09:32)
[2017-05-14] MEDS: ACLIDINIUM BROMIDE 400 MCG/INH AERO.POWD IH SCH ×2 (09:33→21:40)
[2017-05-14] MEDS: SILVER SULFADIAZINE 1% TOP CREAM 50 GM JAR TP SCH (09:33)
[2017-05-14] MEDS: BUDESONIDE/FORMETEROL FUMARATE 160/4.5 mcg INHALER IH SCH ×2 (09:33→21:40)
[2017-05-14] MEDS: CHOLECALCIFEROL (VITAMIN D3) 400 UNIT TABLET (FP) PO SCH (09:34)
[2017-05-14 10:24] LABS: ANISOCYTOSIS 1+; HYPOCHROMIA 2+; MICROCYTOSIS 1+; PLATELET ESTIMATE ADEQUATE (NORMAL); POLYCHROMASIA FEW
--- NOTE | 2017-05-14 10:56 | PN ---
Progress Note, Physician Chief Complaint: in bed NAD afebrile, legs better on IV vanco per ID for MRSA - Current Medication List Current Medications: Active Medications Acetaminophen (Tylenol -) 325 mg PO BID PRN PRN Reason: PAIN LEVEL 1-5 Acetaminophen (Tylenol -) 325 mg PO BID PRN Aclidinium [place] (Tudorza -) 1 puff IH BID [facility] Last Admin: 05/14/17 09:33 Dose: 1 puff Albuterol Sulfate (Ventolin 0.083% Nebulizer Soln -) 1 amp NEB QIDR [facility] Last Admin: 05/14/17 06:12 Dose: 1 amp Aspirin (Asa -) 81 mg PO DAILY [facility] Last Admin: 05/14/17 09:32 Dose: 81 mg Budesonide/Formoterol Fumarate (Symbicort 160/4.5mcg -) 2 puff IH BID [facility] Last Admin: 05/14/17 09:33 Dose: 2 puff Cholecalciferol (Vitamin D3 -) 400 unit PO DAILY [facility] Last Admin: 05/14/17 09:34 Dose: 400 unit Citalopram Hydrobromide (Celexa -) 20 mg PO DAILY [facility] Last Admin: 05/14/17 09:32 Dose: 20 mg Clopidogrel Bisulfate (Plavix -) 75 mg PO DAILY [facility] Last Admin: 05/14/17 09:32 Dose: 75 mg Insulin Aspart (Novolog Vial Sliding Scale -) 1 vial SQ ACHS [facility] PRN Reason: Protocol Last Admin: 05/14/17 06:16 Dose: Not Given Insulin Detemir (Levemir Vial) 10 units SQ BID@0700,2200 [facility] Last Admin: 05/14/17 06:32 Dose: 10 units Nicotine (Nicoderm Patch -) 14 mg TD DAILY [facility] Last Admin: 05/14/17 09:32 Dose: 14 mg Oxycodone HCl (Roxicodone -) 5 mg PO BID PRN PRN Reason: SEVERE PAIN Last Admin: 05/13/17 15:52 Dose: 5 mg Ranitidine HCl (Zantac -) 150 mg PO DAILY [facility] Last Admin: 05/14/17 09:32 Dose: 150 mg Rosuvastatin Calcium (Crestor -) 5 mg PO HS [facility] Last Admin: 05/13/17 21:41 Dose: 5 mg Silver Sulfadiazine (Silvadene -) 1 applic TP DAILY [facility] Last Admin: 05/14/17 09:33 Dose: 1 applic Sodium Polystyrene Sulfonate (Kayexalate -) 30 gm PO ONCE ONE Stop: 05/14/17 10:56 Torsemide (Demadex -) 20 mg PO DAILY [facility] Last Admin: 05/14/17 09:32 Dose: 20 mg - Objective Vital Signs: Vital Signs Temperature 98.8 F 05/14/17 05:55 Pulse Rate 77 05/14/17 05:55 Respiratory Rate 20 05/14/17 05:55 Blood Pressure 139/74 05/14/17 05:55 O2 Sat by Pulse Oximetry (%) 91 L 05/13/17 21:00 Constitutional: Yes: No Distress, Calm Eyes: Yes: Conjunctiva Clear HENT: Yes: Atraumatic Neck: Yes: Supple Cardiovascular: Yes: Regular Rate and Rhythm Respiratory: Yes: CTA Bilaterally Gastrointestinal: Yes: Soft. No: Distention, Tenderness Genitourinary: No: CVA Tenderness - Left, CVA Tenderness - Right Musculoskeletal: No: Joint Stiffness, Joint Swelling Extremities: Yes: Erythema. No: Cold, Cool Edema: Yes Integumentary: Yes: Rash (legs), Venous Stasis Changes Neurological: Yes: WNL, Alert, Oriented ...Motor Strength: WNL Psychiatric: Yes: WNL, Alert, Oriented. No: Agitated Labs: CBC, BMP 05/14/17 06:10 05/14/17 06:10 INR, PTT INR 1.32 (0.82-1.09) H 05/08/17 17:46 - ....Imaging Other: Report Reviewed Assessment/Plan Patient is a 67-year-old male with a past medical history of hyperlipidemia, hypertension, diabetes, COPD on home O2, chronic lower leg wounds, stroke, CAD, left Fem-pop bypass, presents to the emergency department with recurrent legs cellulitis and venous stasis legs elevation; IV ATB per ID; wounds care per vascular surgery continue all other meds DM, f/u BGM Bipap prn. O2 NC as ordered d/w pt c.w meds, ADA diet and to stop smoking f/u labs incentive spirometry DVT falls decubs pfx d/w pt and staff
[2017-05-14] MEDS ORDERED: SODIUM POLYSTYRENE SULFONATE 15 GM/60 ML BOTTLE PO ONE (11:00)
[2017-05-14] MEDS: ROSUVASTATIN CA 5 MG TABLET (FP) PO SCH (21:40)
[2017-05-15] MEDS: ALBUTEROL SO4 0.083% IH SOL 2.5 MG/3 ML VIAL.NEB. NEB SCH ×4 (00:13→17:07)
[2017-05-15] MEDS: INSULIN SLIDING SCALE (NOVOLOG) 1 VIAL SQ SCH ×4 (06:23→21:00)
[2017-05-15] MEDS: INSULIN DETEMIR 100 UNITS/ML MDV SQ SCH ×2 (06:36→20:59)
[2017-05-15] MEDS ORDERED: INSULIN (NOVOLOG) ASPART 100 UNITS/ML 10ML VIAL ONE ×2 (06:44→10:58)
[2017-05-15 07:20] LABS: BASOPHIL 0.7 % (0-2.0); EOSINOPHIL 9.5 % (0-4.5); MCH 21.5 pg (25.7-33.7); MCHC 30.8 g/dl (32.0-35.9); MEAN CELL VOLUME 69.9 fl (80-96); MEAN PLT VOLUME 7.3 fl (7.5-11.1); NEUTROPHILS 76.2 % (42.8-82.8); PLATELET COUNT 325 K/MM3 (134-434); RDW 18.2 % (11.9-15.9)
[2017-05-15 07:50] LABS: ANION GAP 3 (8-16); CALCIUM 8.5 mg/dL (8.5-10.1); CO2 38 mmol/L (21-32); CREATININE 0.8 mg/dL (0.7-1.3); GLUCOSE,RANDOM 85 mg/dL (74-106)
[2017-05-15] MEDS ORDERED: PT OWN MED DRAWER 7, Y5N ONE ×2 (10:02→20:48)
[2017-05-15] MEDS: CLOPIDOGREL BISULFATE 75 MG TABLET (FP) PO SCH (10:22)
[2017-05-15] MEDS: NICOTINE 14 MG/24 HOURS TOPICAL PATCH TD SCH (10:22)
[2017-05-15] MEDS: RANITIDINE HCL 150 MG TABLET (FP) PO SCH (10:22)
[2017-05-15] MEDS: CITALOPRAM HYDROBROMIDE 20 MG TABLET (FP) PO SCH (10:22)
[2017-05-15] MEDS: ASPIRIN 81 MG CHEWABLE TABLETS PO SCH (10:23)
[2017-05-15] MEDS: BUDESONIDE/FORMETEROL FUMARATE 160/4.5 mcg INHALER IH SCH ×2 (10:23→20:59)
[2017-05-15] MEDS: TORSEMIDE 20 MG TABLET (FP) PO SCH (10:23)
[2017-05-15] MEDS: ACLIDINIUM BROMIDE 400 MCG/INH AERO.POWD IH SCH ×2 (10:23→20:59)
[2017-05-15] MEDS: CHOLECALCIFEROL (VITAMIN D3) 400 UNIT TABLET (FP) PO SCH (10:24)
[2017-05-15] MEDS: SILVER SULFADIAZINE 1% TOP CREAM 50 GM JAR TP SCH (11:19)
--- NOTE | 2017-05-15 14:47 | PN ---
Progress Note, Physician History of Present Illness: No c/o leg pain No fever/ chills Tolerating antibiotics - Current Medication List Current Medications: Active Medications Acetaminophen (Tylenol -) 325 mg PO BID PRN PRN Reason: PAIN LEVEL 1-5 Acetaminophen (Tylenol -) 325 mg PO BID PRN Aclidinium [place] (Tudorza -) 1 puff IH BID [facility] Last Admin: 05/15/17 10:23 Dose: 1 puff Albuterol Sulfate (Ventolin 0.083% Nebulizer Soln -) 1 amp NEB QIDR [facility] Last Admin: 05/15/17 11:16 Dose: 1 amp Aspirin (Asa -) 81 mg PO DAILY [facility] Last Admin: 05/15/17 10:23 Dose: 81 mg Budesonide/Formoterol Fumarate (Symbicort 160/4.5mcg -) 2 puff IH BID [facility] Last Admin: 05/15/17 10:23 Dose: 2 puff Cholecalciferol (Vitamin D3 -) 400 unit PO DAILY [facility] Last Admin: 05/15/17 10:24 Dose: 400 unit Citalopram Hydrobromide (Celexa -) 20 mg PO DAILY [facility] Last Admin: 05/15/17 10:22 Dose: 20 mg Clopidogrel Bisulfate (Plavix -) 75 mg PO DAILY [facility] Last Admin: 05/15/17 10:22 Dose: 75 mg Insulin Aspart (Novolog Vial Sliding Scale -) 1 vial SQ ACHS [facility] PRN Reason: Protocol Last Admin: 05/15/17 11:18 Dose: 2 units Insulin Detemir (Levemir Vial) 10 units SQ BID@0700,2200 [facility] Last Admin: 05/15/17 06:36 Dose: 10 units Nicotine (Nicoderm Patch -) 14 mg TD DAILY [facility] Last Admin: 05/15/17 10:22 Dose: 14 mg Ranitidine HCl (Zantac -) 150 mg PO DAILY [facility] Last Admin: 05/15/17 10:22 Dose: 150 mg Rosuvastatin Calcium (Crestor -) 5 mg PO HS [facility] Last Admin: 05/14/17 21:40 Dose: 5 mg Silver Sulfadiazine (Silvadene -) 1 applic TP DAILY [facility] Last Admin: 05/15/17 11:19 Dose: 1 applic Torsemide (Demadex -) 20 mg PO DAILY [facility] Last Admin: 05/15/17 10:23 Dose: 20 mg - Objective Vital Signs: Vital Signs Temperature 98.0 F 05/15/17 09:10 Pulse Rate 70 05/15/17 11:16 Respiratory Rate 20 05/15/17 09:10 Blood Pressure 130/59 05/15/17 09:10 O2 Sat by Pulse Oximetry (%) 96 05/15/17 11:16 Constitutional: Yes: No Distress Eyes: Yes: Conjunctiva Clear Cardiovascular: Yes: Regular Rate and Rhythm, S1, S2 Respiratory: Yes: CTA Bilaterally Gastrointestinal: Yes: Normal Bowel Sounds, Soft. No: Tenderness Extremities: Yes: Other (decreased erythema/ warmth LE bilaterally) Labs: CBC, BMP 05/15/17 05:40 05/15/17 05:40 INR, PTT INR 1.32 (0.82-1.09) H 05/08/17 17:46 Assessment/Plan Bilateral LE cellulitis R>L improved +Wound c/s MRSA Leukocytosis-resolved PCN allergy Continue vancomycin Local wound care
--- NOTE | 2017-05-15 15:33 | PN ---
Progress Note (short form) - Note Progress Note: s: no cp sob palps dizzy o: Vital Signs Period Temp Pulse Resp BP Sys/Mullen Pulse Ox Last 24 Hr 97.8 F-98.4 F 65-78 18-20 126-150/59-86 92-99 nad, no jvd rrr s1s2 no mrg cta bl nl eff aaox3 abd nt nd pos bs no jaundice diaphoresis non pitting le edema b/l with chronic stasis changes of skin, +cellulitis bl Current Medications Generic Name Dose Route Start Last Admin Trade Name Freq PRN Reason Stop Dose Admin Acetaminophen 325 mg 05/08/17 21:22 Tylenol - PO BID PRN PAIN LEVEL 1-5 Acetaminophen 325 mg 05/08/17 21:57 Tylenol - PO BID PRN Aclidinium [place] 1 puff 05/09/17 10:00 05/15/17 10:23 Tudorza - IH 1 puff BID [facility] Administration Albuterol Sulfate 1 amp 05/09/17 06:53 05/15/17 11:16 Ventolin 0.083% Nebulizer Soln - NEB 1 amp QIDR [facility] Administration Aspirin 81 mg 05/09/17 10:00 05/15/17 10:23 Asa - PO 81 mg DAILY [facility] Administration Budesonide/Formoterol Fumarate 2 puff 05/08/17 22:00 05/15/17 10:23 Symbicort 160/4.5mcg - IH 2 puff BID [facility] Administration Cholecalciferol 400 unit 05/09/17 10:00 05/15/17 10:24 Vitamin D3 - PO 400 unit DAILY [facility] Administration Citalopram Hydrobromide 20 mg 05/09/17 10:00 05/15/17 10:22 Celexa - PO 20 mg DAILY [facility] Administration Clopidogrel Bisulfate 75 mg 05/09/17 10:00 05/15/17 10:22 Plavix - PO 75 mg DAILY [facility] Administration Vancomycin HCl 1,250 mg/ 250 mls @ 250 mls/2 hr 05/15/17 16:00 Dextrose IVPB DAILY@1600 [facility] Insulin Aspart 1 vial 05/08/17 22:00 05/15/17 11:18 Novolog Vial Sliding Scale - SQ 2 units ACHS [facility] Administration Protocol Insulin Detemir 10 units 05/09/17 10:06 05/15/17 06:36 Levemir Vial SQ 10 units BID@0700,2200 [facility] Administration Nicotine 14 mg 05/12/17 10:00 05/15/17 10:22 Nicoderm Patch - TD 14 mg DAILY [facility] Administration Ranitidine HCl 150 mg 05/09/17 10:00 05/15/17 10:22 Zantac - PO 150 mg DAILY [facility] Administration Rosuvastatin Calcium 5 mg 05/08/17 22:00 05/14/17 21:40 Crestor - PO 5 mg HS [facility] Administration Silver Sulfadiazine 1 applic 05/09/17 11:15 05/15/17 11:19 Silvadene - TP 1 applic DAILY [facility] Administration Torsemide 20 mg 05/09/17 10:00 05/15/17 10:23 Demadex - PO 20 mg DAILY [facility] Administration CBC, BMP 05/15/17 05:40 05/15/17 05:40 ecg 04/2017: sr, prolonged pr, lbbb, no sig change priors echo 10/2012: nl lv/rv, no sig valve path echo 04/2015: TDS, non diagnostic study per report echo 11/2015: Nl LV, suboptimal views to assess for RWMA. RV not well visualized , likely nl. At least mild pulmonary HTN. Nl valves. 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 chronic venous insuff/LE edema, recurrent cellulitis: -being seen by [facility] surgery/wound team -cont po home torsemide 20 qd PAD: -prior h/o left fem-pop bypass, cont dapt, statin chronic diastolic CHF: -echoes have been unremarkable or very TDS in past, most recent 12/2016 was unremarkable -no pulm edema -no interventions have been felt warranted other than po diuretics--cont same plan here, le edema stable copd: -stable, plans per pulm htn: -stable, controlled hld: -cont statin h/o TIA (2003): -on ASA, statin for sec prevention, cont same irregular heart rhythm/abnormal ecg/Mobitz type 1 second-degree AVB: -chronic finding -event monitor for 2 weeks in 2012 showed occasional mobitz 1 without pauses -has been monitored with observation only, no sx's attributable to this have been noted, no pacing therapy has been rec'd; -no hx of afib -avoid AV arsh blockers -this is a benign rhythm with no associated incr'd risk of syncope or --PM only indicated if freq dizzy or exertional fatigue which is documented to be associated with this rhythm (e.g. on event monitor or treadmill test) -cont to observe clinically cardiac sanchez remains stable
[2017-05-15] MEDS: VANCOMYCIN 1,250 MG in DEXTROSE 5%-WATER - 250 ML IVPB SCH (18:27)
--- NOTE | 2017-05-15 19:35 | PN ---
Progress Note, Physician Chief Complaint: OOB to chair NAD - Current Medication List Current Medications: Active Medications Acetaminophen (Tylenol -) 325 mg PO BID PRN PRN Reason: PAIN LEVEL 1-5 Acetaminophen (Tylenol -) 325 mg PO BID PRN Aclidinium [place] (Tudorza -) 1 puff IH BID [facility] Last Admin: 05/15/17 10:23 Dose: 1 puff Albuterol Sulfate (Ventolin 0.083% Nebulizer Soln -) 1 amp NEB QIDR [facility] Last Admin: 05/15/17 17:07 Dose: 1 amp Aspirin (Asa -) 81 mg PO DAILY [facility] Last Admin: 05/15/17 10:23 Dose: 81 mg Budesonide/Formoterol Fumarate (Symbicort 160/4.5mcg -) 2 puff IH BID [facility] Last Admin: 05/15/17 10:23 Dose: 2 puff Cholecalciferol (Vitamin D3 -) 400 unit PO DAILY [facility] Last Admin: 05/15/17 10:24 Dose: 400 unit Citalopram Hydrobromide (Celexa -) 20 mg PO DAILY [facility] Last Admin: 05/15/17 10:22 Dose: 20 mg Clopidogrel Bisulfate (Plavix -) 75 mg PO DAILY [facility] Last Admin: 05/15/17 10:22 Dose: 75 mg Vancomycin HCl 1,250 mg/ (Dextrose) 250 mls @ 250 mls/2 hr IVPB DAILY@1600 [facility] Last Admin: 05/15/17 18:27 Dose: 250 mls/2 hr Insulin Aspart (Novolog Vial Sliding Scale -) 1 vial SQ ACHS [facility] PRN Reason: Protocol Last Admin: 05/15/17 17:17 Dose: Not Given Insulin Detemir (Levemir Vial) 10 units SQ BID@0700,2200 [facility] Last Admin: 05/15/17 06:36 Dose: 10 units Nicotine (Nicoderm Patch -) 14 mg TD DAILY [facility] Last Admin: 05/15/17 10:22 Dose: 14 mg Ranitidine HCl (Zantac -) 150 mg PO DAILY [facility] Last Admin: 05/15/17 10:22 Dose: 150 mg Rosuvastatin Calcium (Crestor -) 5 mg PO HS [facility] Last Admin: 05/14/17 21:40 Dose: 5 mg Silver Sulfadiazine (Silvadene -) 1 applic TP DAILY [facility] Last Admin: 05/15/17 11:19 Dose: 1 applic Torsemide (Demadex -) 20 mg PO DAILY [facility] Last Admin: 05/15/17 10:23 Dose: 20 mg - Objective Vital Signs: Vital Signs Temperature 97.6 F 05/15/17 17:32 Pulse Rate 62 05/15/17 17:32 Respiratory Rate 20 05/15/17 17:32 Blood Pressure 140/75 05/15/17 17:32 O2 Sat by Pulse Oximetry (%) 96 05/15/17 11:16 Constitutional: Yes: No Distress, Calm Eyes: Yes: Conjunctiva Clear HENT: Yes: Atraumatic Neck: Yes: Supple Cardiovascular: Yes: Regular Rate and Rhythm Respiratory: Yes: CTA Bilaterally Gastrointestinal: Yes: Soft. No: Distention, Tenderness Musculoskeletal: No: Joint Stiffness, Joint Swelling Extremities: No: Cold, Cool Edema: Yes (less) Integumentary: Yes: Rash (legs), Venous Stasis Changes Neurological: Yes: WNL, Alert, Oriented ...Motor Strength: WNL Psychiatric: Yes: WNL, Alert, Oriented. No: Agitated Labs: CBC, BMP 05/15/17 05:40 05/15/17 05:40 INR, PTT INR 1.32 (0.82-1.09) H 05/08/17 17:46 - ....Imaging Other: Report Reviewed Assessment/Plan Patient is a 67-year-old male with a past medical history of hyperlipidemia, hypertension, diabetes, COPD on home O2, chronic lower leg wounds, stroke, CAD, left Fem-pop bypass, presents to the emergency department with recurrent legs cellulitis and venous stasis legs elevation; IV ATB per ID; wounds care per vascular surgery continue all other meds DM f/u BGM Bipap prn. O2 NC as ordered ADA diet, stop smoking f/u labs incentive spirometry DVT falls decubs pfx d/w pt and staff
[2017-05-15] MEDS: ROSUVASTATIN CA 5 MG TABLET (FP) PO SCH (20:59)
[2017-05-16] MEDS ORDERED: INSULIN (NOVOLOG) ASPART 100 UNITS/ML 10ML VIAL ONE ×2 (05:34→09:38)
[2017-05-16] MEDS: INSULIN SLIDING SCALE (NOVOLOG) 1 VIAL SQ SCH ×4 (06:12→22:08)
[2017-05-16] MEDS: INSULIN DETEMIR 100 UNITS/ML MDV SQ SCH ×2 (06:12→22:07)
[2017-05-16] MEDS: ALBUTEROL SO4 0.083% IH SOL 2.5 MG/3 ML VIAL.NEB. NEB SCH ×4 (06:50→18:00)
[2017-05-16] MEDS: RANITIDINE HCL 150 MG TABLET (FP) PO SCH (10:06)
[2017-05-16] MEDS: CLOPIDOGREL BISULFATE 75 MG TABLET (FP) PO SCH (10:06)
[2017-05-16] MEDS: NICOTINE 14 MG/24 HOURS TOPICAL PATCH TD SCH (10:06)
[2017-05-16] MEDS: CHOLECALCIFEROL (VITAMIN D3) 400 UNIT TABLET (FP) PO SCH (10:07)
[2017-05-16] MEDS: ACLIDINIUM BROMIDE 400 MCG/INH AERO.POWD IH SCH ×2 (10:07→22:09)
[2017-05-16] MEDS: TORSEMIDE 20 MG TABLET (FP) PO SCH (10:07)
[2017-05-16] MEDS: CITALOPRAM HYDROBROMIDE 20 MG TABLET (FP) PO SCH (10:07)
[2017-05-16] MEDS: BUDESONIDE/FORMETEROL FUMARATE 160/4.5 mcg INHALER IH SCH ×2 (10:07→22:08)
[2017-05-16] MEDS: ASPIRIN 81 MG CHEWABLE TABLETS PO SCH (10:07)
--- NOTE | 2017-05-16 14:28 | PN ---
Progress Note, Physician Chief Complaint: in bed NAD no legs pains d/w ID about further tx, awaiting for plan - Current Medication List Current Medications: Active Medications Acetaminophen (Tylenol -) 325 mg PO BID PRN PRN Reason: PAIN LEVEL 1-5 Acetaminophen (Tylenol -) 325 mg PO BID PRN Aclidinium [place] (Tudorza -) 1 puff IH BID [facility] Last Admin: 05/16/17 10:07 Dose: 1 puff Albuterol Sulfate (Ventolin 0.083% Nebulizer Soln -) 1 amp NEB QIDR [facility] Last Admin: 05/16/17 11:21 Dose: 1 amp Aspirin (Asa -) 81 mg PO DAILY [facility] Last Admin: 05/16/17 10:07 Dose: 81 mg Budesonide/Formoterol Fumarate (Symbicort 160/4.5mcg -) 2 puff IH BID [facility] Last Admin: 05/16/17 10:07 Dose: 2 puff Cholecalciferol (Vitamin D3 -) 400 unit PO DAILY [facility] Last Admin: 05/16/17 10:07 Dose: 400 unit Citalopram Hydrobromide (Celexa -) 20 mg PO DAILY [facility] Last Admin: 05/16/17 10:07 Dose: 20 mg Clopidogrel Bisulfate (Plavix -) 75 mg PO DAILY [facility] Last Admin: 05/16/17 10:06 Dose: 75 mg Vancomycin HCl 1,250 mg/ (Dextrose) 250 mls @ 250 mls/2 hr IVPB DAILY@1600 [facility] Last Admin: 05/15/17 18:27 Dose: 250 mls/2 hr Insulin Aspart (Novolog Vial Sliding Scale -) 1 vial SQ ACHS [facility] PRN Reason: Protocol Last Admin: 05/16/17 11:29 Dose: Not Given Insulin Detemir (Levemir Vial) 10 units SQ BID@0700,2200 [facility] Last Admin: 05/16/17 06:12 Dose: 10 units Nicotine (Nicoderm Patch -) 14 mg TD DAILY [facility] Last Admin: 05/16/17 10:06 Dose: 14 mg Ranitidine HCl (Zantac -) 150 mg PO DAILY [facility] Last Admin: 05/16/17 10:06 Dose: 150 mg Rosuvastatin Calcium (Crestor -) 5 mg PO HS [facility] Last Admin: 05/15/17 20:59 Dose: 5 mg Silver Sulfadiazine (Silvadene -) 1 applic TP DAILY [facility] Last Admin: 05/15/17 11:19 Dose: 1 applic Torsemide (Demadex -) 20 mg PO DAILY [facility] Last Admin: 05/16/17 10:07 Dose: 20 mg - Objective Vital Signs: Vital Signs Temperature 98.4 F 05/16/17 14:12 Pulse Rate 69 05/16/17 14:12 Respiratory Rate 20 05/16/17 14:12 Blood Pressure 152/66 05/16/17 14:12 O2 Sat by Pulse Oximetry (%) 98 05/16/17 11:20 Constitutional: Yes: No Distress, Calm Eyes: Yes: Conjunctiva Clear HENT: Yes: Atraumatic Neck: Yes: Supple Cardiovascular: Yes: Regular Rate and Rhythm Respiratory: Yes: CTA Bilaterally Gastrointestinal: Yes: Soft. No: Distention, Tenderness Genitourinary: No: CVA Tenderness - Left, CVA Tenderness - Right Musculoskeletal: No: Joint Stiffness, Joint Swelling Extremities: No: Cold, Cool Edema: No Peripheral Pulses WNL: Yes Integumentary: Yes: Rash (legs, better), Venous Stasis Changes Neurological: Yes: WNL, Alert, Oriented ...Motor Strength: WNL Psychiatric: Yes: WNL, Alert, Oriented. No: Agitated, Suicidal Ideation Labs: CBC, BMP 05/15/17 05:40 05/15/17 05:40 INR, PTT INR 1.32 (0.82-1.09) H 05/08/17 17:46 - ....Imaging Other: Report Reviewed Assessment/Plan Patient is a 67-year-old male with a past medical history of hyperlipidemia, hypertension, diabetes, COPD on home O2, chronic lower leg wounds, stroke, CAD, left Fem-pop bypass, presents to the emergency department with recurrent legs cellulitis and venous stasis legs elevation; IV ATB per ID; awaiting further plan for MRSA tx wounds care per vascular surgery continue all other meds DM f/u BGM Bipap prn. O2 NC as ordered ADA diet, stop smoking f/u labs incentive spirometry DVT falls decubs pfx d/w pt and staff
[2017-05-16] MEDS: SILVER SULFADIAZINE 1% TOP CREAM 50 GM JAR TP SCH (15:30)
--- NOTE | 2017-05-16 15:54 | PN ---
Progress Note, Physician History of Present Illness: No c/o leg pain No fever/ chills Leg wounds examined - Current Medication List Current Medications: Active Medications Acetaminophen (Tylenol -) 325 mg PO BID PRN PRN Reason: PAIN LEVEL 1-5 Acetaminophen (Tylenol -) 325 mg PO BID PRN Aclidinium [place] (Tudorza -) 1 puff IH BID [facility] Last Admin: 05/16/17 10:07 Dose: 1 puff Albuterol Sulfate (Ventolin 0.083% Nebulizer Soln -) 1 amp NEB QIDR [facility] Last Admin: 05/16/17 11:21 Dose: 1 amp Aspirin (Asa -) 81 mg PO DAILY [facility] Last Admin: 05/16/17 10:07 Dose: 81 mg Budesonide/Formoterol Fumarate (Symbicort 160/4.5mcg -) 2 puff IH BID [facility] Last Admin: 05/16/17 10:07 Dose: 2 puff Cholecalciferol (Vitamin D3 -) 400 unit PO DAILY [facility] Last Admin: 05/16/17 10:07 Dose: 400 unit Citalopram Hydrobromide (Celexa -) 20 mg PO DAILY [facility] Last Admin: 05/16/17 10:07 Dose: 20 mg Clopidogrel Bisulfate (Plavix -) 75 mg PO DAILY [facility] Last Admin: 05/16/17 10:06 Dose: 75 mg Vancomycin HCl 1,250 mg/ (Dextrose) 250 mls @ 250 mls/2 hr IVPB DAILY@1600 [facility] Last Admin: 05/15/17 18:27 Dose: 250 mls/2 hr Insulin Aspart (Novolog Vial Sliding Scale -) 1 vial SQ ACHS [facility] PRN Reason: Protocol Last Admin: 05/16/17 11:29 Dose: Not Given Insulin Detemir (Levemir Vial) 10 units SQ BID@0700,2200 [facility] Last Admin: 05/16/17 06:12 Dose: 10 units Nicotine (Nicoderm Patch -) 14 mg TD DAILY [facility] Last Admin: 05/16/17 10:06 Dose: 14 mg Ranitidine HCl (Zantac -) 150 mg PO DAILY [facility] Last Admin: 05/16/17 10:06 Dose: 150 mg Rosuvastatin Calcium (Crestor -) 5 mg PO HS [facility] Last Admin: 05/15/17 20:59 Dose: 5 mg Silver Sulfadiazine (Silvadene -) 1 applic TP DAILY [facility] Last Admin: 05/16/17 15:30 Dose: 1 applic Torsemide (Demadex -) 20 mg PO DAILY [facility] Last Admin: 05/16/17 10:07 Dose: 20 mg - Objective Vital Signs: Vital Signs Temperature 98.4 F 05/16/17 14:12 Pulse Rate 69 05/16/17 14:12 Respiratory Rate 20 05/16/17 14:12 Blood Pressure 152/66 05/16/17 14:12 O2 Sat by Pulse Oximetry (%) 98 05/16/17 11:20 Constitutional: Yes: No Distress Eyes: Yes: Conjunctiva Clear Cardiovascular: Yes: Regular Rate and Rhythm, S1, S2 Respiratory: Yes: CTA Bilaterally Gastrointestinal: Yes: Normal Bowel Sounds, Soft. No: Tenderness Extremities: Yes: Other (erythema L LE nearly all resolved R LE with residual erythema/ warmth of foot) Labs: CBC, BMP 05/15/17 05:40 05/15/17 05:40 INR, PTT INR 1.32 (0.82-1.09) H 05/08/17 17:46 Assessment/Plan Bilateral LE cellulitis R>L improved +Wound c/s MRSA Leukocytosis-resolved PCN allergy Continue vancomycin PICC for outpatient vancomycin 1250mg IVPB qd x 7d Local wound care
[2017-05-16] MEDS: VANCOMYCIN 1,250 MG in DEXTROSE 5%-WATER - 250 ML IVPB SCH (16:47)
[2017-05-16] MEDS: ROSUVASTATIN CA 5 MG TABLET (FP) PO SCH (22:06)
[2017-05-17] MEDS: ALBUTEROL SO4 0.083% IH SOL 2.5 MG/3 ML VIAL.NEB. NEB SCH ×3 (00:01→11:00)
[2017-05-17] MEDS ORDERED: INSULIN (NOVOLOG) ASPART 100 UNITS/ML 10ML VIAL ONE ×2 (06:12→12:15)
[2017-05-17] MEDS: INSULIN SLIDING SCALE (NOVOLOG) 1 VIAL SQ SCH ×3 (06:41→17:44)
[2017-05-17] MEDS: INSULIN DETEMIR 100 UNITS/ML MDV SQ SCH (06:41)
[2017-05-17] MEDS ORDERED: PT OWN MED DRAWER 7, Y5N ONE (09:54)
[2017-05-17] MEDS: TORSEMIDE 20 MG TABLET (FP) PO SCH (10:07)
[2017-05-17] MEDS: ASPIRIN 81 MG CHEWABLE TABLETS PO SCH (10:07)
[2017-05-17] MEDS: NICOTINE 14 MG/24 HOURS TOPICAL PATCH TD SCH (10:08)
[2017-05-17] MEDS: CLOPIDOGREL BISULFATE 75 MG TABLET (FP) PO SCH (10:08)
[2017-05-17] MEDS: RANITIDINE HCL 150 MG TABLET (FP) PO SCH (10:08)
[2017-05-17] MEDS: CITALOPRAM HYDROBROMIDE 20 MG TABLET (FP) PO SCH (10:08)
[2017-05-17] MEDS: ACLIDINIUM BROMIDE 400 MCG/INH AERO.POWD IH SCH (10:09)
[2017-05-17] MEDS: BUDESONIDE/FORMETEROL FUMARATE 160/4.5 mcg INHALER IH SCH (10:09)
[2017-05-17] MEDS: CHOLECALCIFEROL (VITAMIN D3) 400 UNIT TABLET (FP) PO SCH (10:09)
[2017-05-17] MEDS ORDERED: PICC LINE 8 ML FLUSH PROTOCOL IVPUSH PRN (10:38)
[2017-05-17 10:42] VITALS: PULSE 77
--- NOTE | 2017-05-17 13:10 | DS ---
Physical Examination Vital Signs: Vital Signs Temperature 97.7 F 05/17/17 06:00 Pulse Rate 77 05/17/17 10:40 Respiratory Rate 20 05/17/17 06:00 Blood Pressure 131/56 05/17/17 06:00 O2 Sat by Pulse Oximetry (%) 90 L 05/17/17 10:42 Findings/Remarks: Pt w/o fever, chills, SOB, CP, palp, abd pain, N, V, diarrhea Constitutional: Yes: No Distress, Calm Cardiovascular: Yes: Regular Rate and Rhythm, S1, S2 Respiratory: Yes: Regular, CTA Bilaterally. No: Rales Gastrointestinal: Yes: Normal Bowel Sounds, Soft, Abdomen, Obese. No: Palpable Mass, Tenderness Integumentary: Yes: Other (both legs with wraped with clean dressing) Neurological: Yes: Alert, Oriented Labs: CBC, BMP 05/15/17 05:40 05/15/17 05:40 Discharge Summary Reason For Visit: CELLULITIS Current Active Problems Cellulitis (Acute) Cellulitis of leg (Acute) Procedures: Principal: CXR Hospital Course: Pt with hx/o PVD, s/p left fem-pop bypass, legs cellulitis, seen at home by VNS that noticed ttha both legs are red and weeping. Pt was admitted for cellulitis of both legs, started on IV abtx, seen by ID (Dr. Gillis). Pt was noticed to have abnormal EKG and was evaluated by Cardio (Dr. Holder). Pt improved on current meds, needs PICC line and IV Vanco for 7 more days. To DC to [place], pending bed and PICC line placement. Condition: Improved - Instructions Diet, Activity, Other Instructions: f/u PCP and vascular surgery in 1 week after DC from [place] meds as advised no smoking falls PFX Home O2 NC Referrals: Liyah Louise MD [Primary Care Provider] - [facility] - Home Medications Comprehensive Discharge Medication List: Ambulatory Orders This list might NOT be accurate Aspirin [ASA -] 81 mg PO DAILY 12/27/16 Cholecalciferol (Vitamin D3) [Vitamin D -] 1 tab PO DAILY 12/27/16 Clopidogrel Bisulfate [Plavix -] 0 mg PO DAILY 12/27/16 Cyanocobalamin (Vitamin B-12) [Vitamin B-12] 1 tab PO DAILY 12/27/16 Multivit-Min/Iron Fum/Folic AC [Tddqo-Kmzdgwf-Vyswjclk Tablet] 1 each PO DAILY 12/27/16 Rosuvastatin [Crestor -] 0 mg PO HS 12/27/16 Tiotropium [place] [Spiriva] 17 inh PO DAILY 12/27/16 Torsemide 20 mg PO DAILY 12/27/16 Acetaminophen [Tylenol .Regular Strength -] 325 mg PO BID PRN #0 tablet Albuterol 2.5/Ipratropium 0.5 [Duoneb -] 1 amp [facility] 01/02/17 Budesonide/Formeterol Fumarate [SYMBICORT 160/4.5mcg -] 2 puff IH BID inhaler 01/02/17 Insulin Sliding Scale [Novolog Vial Sliding Scale -] 1 vial SQ ACHS units 01/02 Nicotine Patch [Nicoderm Patch -] 14 mg TD DAILY patch 01/02/17 Ranitidine [Zantac -] 150 mg PO DAILY tablet 01/02/17 Citalopram Hydrobromide [Celexa -] 1 tab PO DAILY 04/20/17 Acetaminophen [Tylenol .Regular Strength -] 325 mg PO BID PRN #0 tablet Albuterol 0.083% Nebulizer [place] [Ventolin 0.083% Nebulizer Soln -] 1 amp [facility] amp 05/17/17 Insulin (Levemir) [Levemir Vial] 10 units SQ BID@0700,2200 ml 05/17/17 Insulin Sliding Scale [Novolog Vial Sliding Scale -] 1 vial SQ ACHS units 05/17 Nicotine Patch [Nicoderm Patch -] 14 mg TD DAILY patch 05/17/17 Picc Line Flush [Picc Line Flush -] 8 ml IVPUSH PRN PRN #0 ml 05/17/17 Silver Sulfadiazine 1% Top Cr [Silvadene -] 1 applic TP DAILY jar 05/17/17 Torsemide [Demadex -] 20 mg PO DAILY tablet 05/17/17 Vancomycin 1,250 mg IVPB DAILY@1600 #7 days vial 05/17/17
[2017-05-17] MEDS: VANCOMYCIN 1,250 MG in DEXTROSE 5%-WATER - 250 ML IVPB SCH (16:06)
[2017-05-17 18:13] VITALS: BP 127/50; TEMP 98
== END 2017-05-17 17:55 | DRG 603 ==
LOC: JER 14:25 → JERBED 19:32 → J7W 21:20
PROVIDERS: ADMIT Internal Medicine; ATTEND Internal Medicine
PROC: 02HV33Z Insertion of Infusion Device into Superior Vena Cava, Percutaneous Approach (ICD-10-PCS; principal; 2017-05-17)
DX: L03.116 Cellulitis of left lower limb (principal); L97.819 Non-pressure chronic ulcer of other part of right lower leg with unspecified severity; I50.32 Chronic diastolic (congestive) heart failure; J44.9 Chronic obstructive pulmonary disease, unspecified; L03.115 Cellulitis of right lower limb; I25.10 Atherosclerotic heart disease of native coronary artery without angina pectoris; E78.5 Hyperlipidemia, unspecified; I44.7 Left bundle-branch block, unspecified; E66.8 Other obesity; Z68.31 Body mass index [BMI] 31.0-31.9, adult; F17.210 Nicotine dependence, cigarettes, uncomplicated; E11.622 Type 2 diabetes mellitus with other skin ulcer; I44.0 Atrioventricular block, first degree; I87.2 Venous insufficiency (chronic) (peripheral); I11.0 Hypertensive heart disease with heart failure; D72.828 Other elevated white blood cell count; Z88.0 Allergy status to penicillin; Z99.81 Dependence on supplemental oxygen; Z86.73 Personal history of transient ischemic attack (TIA), and cerebral infarction without residual deficits; A49.02 Methicillin resistant Staphylococcus aureus infection, unspecified site
CPT/HCPCS: 29581-LT; 29581-RT; 36415; 36569; 71010-TC; 77001-TC; 80048; 80053; 81003; 81015; 82550; 82728; 82803; 83036; 83540; 83605; 84484; 85025; 85610; 85651; 85730; 87040; 87070; 87086; 87186; 87205; 93005; 93010; 94010; 94640; 94660; 97116-GP; 97161-GP; 99282-25; C1751; G0463-25; G0480

== ENCOUNTER 2017-06-14 15:14 | Observation (INO) | payer OTHER ==
--- NOTE | 2017-06-14 16:22 | PDOC ---
History of Present Illness - General Chief Complaint: Injury Stated Complaint: FALL Time Seen by Provider: 06/14/17 15:36 - History of Present Illness Initial Comments: 06/14/17 16:49 67M w/ hx of IDDM, CAD, CVA, CKD, COPD on home O2, and chronic LL wounds presenting after a fall this am. Pt reports that he was walking on the sidewalk when he lost his footing and fell down hitting his L chest, the front of his head, and his right knee. He denies any dizziness or LOC before or after the fall. He denies headache, SOB, nausea, and emesis but endorses L-sided pleuritic chest pain. 06/14/17 16:58 Past History - Past Medical History Allergies/Adverse Reactions: Allergies Allergy/AdvReac Type Severity Reaction Status Date / Time amoxicillin trihydrate Allergy Unknown Verified 06/14/17 15:29 [From Augmentin] potassium clavulanate Allergy Unknown Verified 06/14/17 15:29 [From Augmentin] Home Medications: Ambulatory Orders Acetaminophen [Tylenol .Regular Strength -] 325 mg PO BID PRN 06/14/17 Albuterol 0.083% Nebulizer [place] [Ventolin 0.083% Nebulizer Soln -] 1 neb NEB QID 06/14/17 Albuterol 2.5/Ipratropium 0.5 [Duoneb -] 1 neb IH QID 06/14/17 Aspirin [ASA -] 81 mg PO DAILY 06/14/17 Budesonide/Formeterol Fumarate [SYMBICORT 160/4.5mcg -] 1 inh PO BID 06/14/17 Cholecalciferol (Vitamin D3) [Vitamin D3 -] 1,000 unit PO DAILY 06/14/17 Citalopram Hydrobromide [Celexa -] 10 mg PO DAILY 06/14/17 Clopidogrel Bisulfate [Plavix -] 75 mg PO DAILY 06/14/17 Cyanocobalamin (Vitamin B-12) [Vitamin B-12] 50 mcg PO DAILY 06/14/17 Insulin (Levemir) [Levemir Vial] 10 units SQ BID 06/14/17 Insulin Sliding Scale [Novolog Vial Sliding Scale -] 0 units SQ ACHS 06/14/17 Nystatin Cream [Mycostatin Cream -] 1 applic TP BID 06/14/17 Ranitidine [Zantac -] 150 mg PO DAILY 06/14/17 Rosuvastatin [Crestor -] 5 mg PO HS 06/14/17 Tiotropium [place] [Spiriva] 1 inh IH DAILY 06/14/17 Torsemide [Demadex -] 20 mg PO DAILY 06/14/17 Acetaminophen W/ Codeine #3 [Tylenol # 3 -] 1 - 2 tab PO Q6H PRN 06/15/17 Oxycodone HCl/Acetaminophen [Percocet 5-325 mg Tablet] 1 tab PO Q6H #8 tablet MDD 20 06/16/17 Anemia: No Cardiac Disorders: Yes (CAD, Left Fem-Pop Bypass) CVA: Yes (no deficit 5 years ago.) COPD: Yes (o2 depend home 3-4lpm n/c.) CHF: No Dementia: No Diabetes: Yes GI Disorders: Yes Disorders: No HTN: Yes Hypercholesterolemia: Yes Liver Disease: No Seizures: No Thyroid Disease: No Comment:: 06/14/17 16:52 PMH: as stated above PSH: stent - Surgical History Abdominal Surgery: No Appendectomy: No Cardiac Surgery: Yes (LEFT FEM-POP BYPASS) Cholecystectomy: No Lung Surgery: No Neurologic Surgery: No Orthopedic Surgery: No - Immunization History Immunization Up to Date: No - Psycho/Social/Smoking Cessation Hx Anxiety: No Suicidal Ideation: No Smoking Status: Yes Smoking History: Current every day smoker Have you smoked in the past 12 months: Yes Number of Cigarettes Smoked Daily: 5 If you are a former smoker, when did you quit?: 6 months Information on smoking cessation initiated: No 'Breaking Loose' booklet given: 05/08/17 Hx Alcohol Use: No Drug/Substance Use Hx: No Substance Use Type: None Hx Substance Use Treatment: No Review of Systems - Review of Systems Comments:: 06/14/17 16:53 GENERAL: No fever, chills, night sweats, or weakness. HEAD, EYES, EARS, NOSE AND THROAT: No change in vision, ear pain, or sore throat CARDIOVASCULAR: + pleuritic chest pain, no palpitations RESPIRATORY: No cough, wheezing, or hemoptysis. GASTROINTESTINAL: No nausea, vomiting, diarrhea, constipation, or blood in the stool. GENITOURINARY: No dysuria, frequency, or urgency MUSCULOSKELETAL: no muscle swelling SKIN: +rashes on lower legs- chronic ENDOCRINE: No increased thirst. No abnormal weight change NEUROLOGIC: No headache, dizziness, loss of consciousness, or change in strength /sensation. *Physical Exam - Vital Signs Last Vital Signs Temp Pulse Resp BP Pulse Ox 98.7 F 74 20 129/69 97 06/14/17 15:25 06/14/17 15:25 06/14/17 15:25 06/14/17 15:25 06/14/17 15:25 - Physical Exam Comments: 06/14/17 16:54 GENERAL: Awake, alert, and fully oriented, in no acute distress HEAD: 3cm abrasion on forehead, not bleeding without laceration HEENT: PERRLA, EOMI. Nose has dried blood on it and is tender to touch without crepitus NECK: Normal ROM, supple, no lymphadenopathy, JVD, or masses HEART: heart sounds difficult to auscultate. L chest is very tender to palpation most prominently below nipple LUNGS: diffuse rhonchi present, no wheezing ABDOMEN: Soft, nontender, nondistended, normoactive bowel sounds. No guarding, no rebound. No masses EXTREMITIES: abrasion on left forearm, knees are tender to palpation with abrasions and without crepitus, lower legs have bandages covering chronic wounds. ROM is normal in all extremities NEUROLOGICAL: Cranial nerves II through XII grossly intact. Normal speech, normal gait, no focal sensorimotor deficits ED Treatment Course - LABORATORY CBC & Chemistry Diagram: 06/16/17 06:30 06/16/17 06:30 Medical Decision Making - Medical Decision Making 06/14/17 16:58 67M w/ hx of IDDM, CAD, CVA, CKD, COPD on home O2, and chronic LL wounds presenting falling on head, L chest, and knees. Exam notable for exquisite tenderness on palpation of L chest. Possible L rib fracture. CXR: CT head: CT facial bones: CBC: CMP: Given 2 percocets for pain. *DC/Admit/Observation/Transfer Diagnosis at time of Disposition: Fall, Head injury - Discharge Dispostion Disposition: HOME Condition at time of disposition: Stable - Prescriptions
--- NOTE | 2017-06-14 16:37 | PDOC ---
Attending Attestation - Resident Resident Name: CarlosAvni - ED Attending Attestation I have performed the following: I have examined & evaluated the patient, The case was reviewed & discussed with the resident, I agree w/resident's findings & plan, Exceptions are as noted - HPI HPI: 06/14/17 16:37 67y M hxof cad, copd, ckd, presents s/p fall last night, he went outside to bring the plants in mo th rain and he slipped, fell landing with his arm breaking the fall, but struck his head/nose on th ground. There was no LOC, neck pain, back pain, after th fall. The pt denies any associated chest pain, palpitations, dizziness/headache,a bd pain, back pain , numbness/tingling/ewakness prior to his fall. Pt notes he has mild pain in the L chest especially when he takes a deep breath. He denies any extremitiy pain. GENERAL: The patient is awake, alert, and fully oriented, Nontoxic - in no acute distress. HEAD: Normocephalic, abrasion/contusion to his forhead and tip of nose, no creiptus/stepoffs, no racoon eyes/battles sign EYES: extraocular movements intact, sclera anicteric, conjunctiva clear. ENT: Normal voice, Moist mucous membranes. NECK: Normal range of motion, supple, no focla midline tenderness in cervical/ throacic/lumbar back LUNGS: scattered wheezing, deminished breath sounds b/l CHEST: mild tenderness in L chest, no signs of ecchymosis HEART: irregularly irregular ABDOMEN: Soft, nontender, normoactive bowel sounds. No guarding, no rebound. No CVA tenderness EXTREMITIES: Normal range of motion of all of his extremities without pain, b/l LE edema with chronic lesions b/l NEUROLOGICAL: No facial assymetry, Normal speech, moving all 4 extremities spontaneously and symmetrically SKIN: Warm, Dry, normal turgor no syncopal/presyncopal symptoms xrays/ct to r/o pathology ekg/labs to r/o arrhthmia/anemia/metabolic derangement as cause of fall percocet for pain 06/14/17 19:53 labs reviewed noted for mild hypercapnea, likely chronic for his copd awaioting xrays and ekg 06/14/17 20:41 ekg shows new afib, rate conrolled will likely need admsission, a/c will dsicuss with dr. hightower and dr. soler regarding anticoagulation 06/14/17 20:[address] hightower will admit pt to her sevice for new afib will confirm with cariology that his afib is new, but there is no records of it on prior charts/card consults. will admit to telemetry - Physicial Exam PE: 06/16/17 16:19 see above - Medical Decision Making 06/16/17 16:19 michelet archer Heart Score/ECG Review - ECG Impressions Comment:: 06/14/17 20:41 Twelve-lead EKG was performed and reviewed by me. irregularly irregular lbbb rate of 58 afib with slow ventricular response - new when compared with prior ekg wihch was sinus
[2017-06-14 17:55] LABS: ALBUMIN 3.2 g/dl (3.4-5.0); ANION GAP 2 (8-16); BILIRUBIN,TOTAL 0.4 mg/dL (0.2-1.0); CALCIUM 8.9 mg/dL (8.5-10.1); CO2 38 mmol/L (21-32); CREATININE 1.3 mg/dL (0.7-1.3); GLUCOSE,RANDOM 89 mg/dL (74-106); SGOT/AST 10 U/L (15-37); SGPT/ALT 15 U/L (12-78); TOT PROT 7.5 g/dl (6.4-8.2)
[2017-06-14 17:56] LABS: ALK PHOS 65 U/L (45-117)
--- NOTE | 2017-06-14 19:23 | PDOC ---
*Physical Exam - Vital Signs Last Vital Signs Temp Pulse Resp BP Pulse Ox 98.7 F 74 20 129/69 97 06/14/17 15:25 06/14/17 15:25 06/14/17 15:25 06/14/17 15:25 06/14/17 15:25 <Abner Castillo - Last Filed: 06/14/17 23:41> - Vital Signs Last Vital Signs Temp Pulse Resp BP Pulse Ox 98.7 F 74 20 129/69 97 06/14/17 15:25 06/14/17 15:25 06/14/17 15:25 06/14/17 15:25 06/14/17 15:25 <Fletcher Horowitz - Last Filed: 06/14/17 23:55> ED Treatment Course - LABORATORY CBC & Chemistry Diagram: 06/14/17 19:25 06/14/17 17:00 - ADDITIONAL ORDERS Additional order review: Laboratory Results 06/14/17 17:00 Sodium 142 Potassium 4.8 Chloride 102 Carbon Dioxide 38 H Anion Gap 2 L BUN 25 H D Creatinine 1.3 D Creat Clearance w eGFR 55.23 Random Glucose 89 Calcium 8.9 Total Bilirubin 0.4 D AST 10 L ALT 15 D Alkaline Phosphatase 65 D Total Protein 7.5 D Albumin 3.2 L D - Medications Given in the ED: ED Medications Discontinued Medications Generic Name Dose Route Start Last Admin Trade Name Freq PRN Reason Stop Dose Admin Oxycodone/Acetaminophen 2 combo 06/14/17 16:43 06/14/17 16:56 Percocet 5/325 - PO 06/14/17 16:44 2 combo ONCE ONE Administration <Abner Castillo - Last Filed: 06/14/17 23:41> - LABORATORY CBC & Chemistry Diagram: 06/14/17 19:25 06/14/17 17:00 - ADDITIONAL ORDERS Additional order review: Laboratory Results 06/14/17 17:00 Sodium 142 Potassium 4.8 Chloride 102 Carbon Dioxide 38 H Anion Gap 2 L BUN 25 H D Creatinine 1.3 D Creat Clearance w eGFR 55.23 Random Glucose 89 Calcium 8.9 Total Bilirubin 0.4 D AST 10 L ALT 15 D Alkaline Phosphatase 65 D Total Protein 7.5 D Albumin 3.2 L D 06/14/17 19:25 RBC 4.67 MCV 73.5 L MCHC 30.6 L RDW 21.9 H D MPV 7.8 Neutrophils % 76.0 Lymphocytes % 6.0 L D Monocytes % 7.2 Eosinophils % 9.9 H Basophils % 0.9 - Medications Given in the ED: ED Medications Discontinued Medications Generic Name Dose Route Start Last Admin Trade Name Freq PRN Reason Stop Dose Admin Oxycodone/Acetaminophen 2 combo 06/14/17 16:43 06/14/17 16:56 Percocet 5/325 - PO 06/14/17 16:44 2 combo ONCE ONE Administration <Fletcher Horowitz - Last Filed: 06/14/17 23:55> Medical Decision Making - Medical Decision Making 06/14/17 19:21 The patient was signed out to me by Dr. Olguin. The patient is a 67M with a PMH of DM, CAD, CVA, CKD, COPD who presented after a fall. Pending head CT. Other imaging is negative. Will reassess when CT returns. 06/14/17 22:09 EKG was done showing a questionable a- fib. I discussed the EKG with his clinical rn manager, Dr. Win and she informed me that he has a hx of [place]. She states that because of the unknown history of his fall and questionable if it was mechanical, we should admit him to tele. Dr Valle was spoken to, she wants the admission to go through the hospitalist. Dr. Baker has accepted admission with consult to Dr. Win's partner, Dr. Holder. <Abner Castillo - Last Filed: 06/14/17 23:41> *DC/Admit/Observation/Transfer - Discharge Dispostion Admit: Yes - Attestations Physician Attestion: 06/14/17 22:26 <Abner Castillo - Last Filed: 06/14/17 23:41> - Discharge Dispostion Admit: Yes <Fletcher Horowitz - Last Filed: 06/14/17 23:55> Diagnosis at time of Disposition: Fall Qualifiers: Encounter type: initial encounter Qualified Code(s): W19.XXXA - Unspecified fall, initial encounter Injury of head Qualifiers: Encounter type: initial encounter Qualified Code(s): S09.90XA - Unspecified injury of head, initial encounter - Discharge Dispostion Condition at time of disposition: Stable - Referrals
[2017-06-14 19:35] LABS: BASOPHIL 0.9 % (0-2.0); EOSINOPHIL 9.9 % (0-4.5); MCH 22.5 pg (25.7-33.7); MCHC 30.6 g/dl (32.0-35.9); MEAN CELL VOLUME 73.5 fl (80-96); MEAN PLT VOLUME 7.8 fl (7.5-11.1); RDW 21.9 % (11.9-15.9); WHITE BLOOD COUNT 10.9 K/mm3 (4.0-10.0)
[2017-06-14 19:51] LABS: ANISOCYTOSIS 2+; HYPOCHROMIA 1+; PLATELET COUNT 190 K/MM3 (134-434); PLATELET ESTIMATE ADEQUATE (NORMAL)
--- NOTE | 2017-06-15 00:43 | HP ---
CHIEF COMPLAINT: Left sided chest pain [facility]: Dr. Blanton HISTORY OF PRESENT ILLNESS: 67yo M with PMH of COPD, IDDM, chronic inocencia LE wounds presents S/P fall. Pt reports he slipped and fell while walking on the sidewalk in the rain last night at 11pm (24 hrs ago). Pt is a questionable historian, mechanism of fall is not fully understood. Pt has abrasions to forehead, nose, Right UE, and inocencia knees, but complains only of a mild Left sided pleuritic chest pain which he attributes to the fall. The chest pain is non-radiating, worse with breathing. Pt did not want to come ER but was convinced to come by his Visiting Nurse, who had come to his home for regular wound care to his inocencia LE. Pt was admitted here 3 weeks ago for cellulitis. Pt denies LOC, dizziness, headache, neck pain , back pain, palpitations, nausea, vomiting. ER course was notable for: (1) EKG revealing afib (2) Percocet PAST MEDICAL HISTORY: IDDM CAD COPD on home O2 3-4 LPM via nasal cannula CVA 5 yrs ago with no residual deficits chronic inocencia LE wounds HTN hypercholesterolemia CKD PAST SURGICAL HISTORY: Left femoral-popiteal bypass Stent placement behind Right knee 2/2 vascular disease Social History: Smokin cigarettes / day now, used to be 1 ppd x 40 yrs Alcohol: none Drugs: none Family History: Daughter: DM Allergies amoxicillin trihydrate [From Augmentin] Allergy (Unknown, Verified 06/14/17 15: 29) potassium clavulanate [From Augmentin] Allergy (Unknown, Verified 06/14/17 15:29 ) HOME MEDICATIONS: Home Medications Medication Instructions Recorded Acetaminophen [Tylenol -] 325 mg PO BID PRN 06/14/17 Albuterol 0.083% Nebulizer Kala 1 neb NEB QID 06/14/17 [Ventolin 0.083%] Albuterol 2.5/Ipratropium 0.5 1 neb IH QID 06/14/17 [Duoneb -] Aspirin [ASA -] 81 mg PO DAILY 06/14/17 Budesonide/Formeterol Fumarate 1 inh PO BID 06/14/17 [SYMBICORT 160/4.5mcg -] Cholecalciferol (Vitamin D3) 1,000 unit PO DAILY 06/14/17 [Vitamin D3 -] Citalopram Hydrobromide [Celexa -] 10 mg PO DAILY 06/14/17 Clopidogrel Bisulfate [Plavix -] 75 mg PO DAILY 06/14/17 Cyanocobalamin (Vitamin B-12) 50 mcg PO DAILY 06/14/17 [Vitamin B-12] Insulin (Levemir) [Levemir Vial] 10 units SQ BID 06/14/17 Insulin Sliding Scale [Novolog 0 units SQ ACHS 06/14/17 Vial Sliding Scale -] Nystatin Cream [Mycostatin] 1 applic TP BID 06/14/17 Ranitidine [Zantac -] 150 mg PO DAILY 06/14/17 Rosuvastatin [Crestor -] 5 mg PO HS 06/14/17 Tiotropium [place] [Spiriva] 1 inh IH DAILY 06/14/17 Torsemide [Demadex] 20 mg PO DAILY 06/14/17 REVIEW OF SYSTEMS CONSTITUTIONAL: Absent: fever, chills, diaphoresis, generalized weakness, malaise, loss of appetite, weight change HEENT: Absent: throat pain, ear pain, eye pain, visual changes CARDIOVASCULAR: Present: Left sided pleuritic chest pain Absent: syncope, palpitations, irregular heart rate, lightheadedness, peripheral edema RESPIRATORY: Present: cough, SOB, dyspnea with exertion, wheezing Absent: orthopnea, stridor, hemoptysis GASTROINTESTINAL: Absent: abdominal pain, abdominal distension, nausea, vomiting, diarrhea, constipation, melena, hematochezia GENITOURINARY: Absent: hematuria MUSCULOSKELETAL: Absent: neck pain, back pain SKIN: Absent: rash, itching, pallor NEUROLOGIC: Absent: headache, focal weakness or paresthesias, dizziness Last Vital Signs Temp Pulse Resp BP Pulse Ox 98.7 F 74 20 129/69 97 06/14/17 15:25 06/14/17 15:25 06/14/17 15:25 06/14/17 15:25 06/14/17 15:25 PHYSICAL EXAMINATION GENERAL: Awake, alert, and fully oriented, in no acute distress. HEAD: Normocephalic, with 3cm x 3cm abrasion to Right forehead. EYES: Pupils equal, round and reactive to light, extraocular movements intact, sclera anicteric, conjunctiva clear. No lid lag. EARS, NOSE, THROAT: 2cm x 2cm abrasion to tip of nose, with no crepitus. Moist mucous membranes. NECK: Normal range of motion. No midline tenderness to cervical spine. LUNGS: Wheezing present bilaterally, diminished breath sounds bilaterally. HEART: S1, S2 present. No murmurs, rubs, gallops appreciated. CHEST: tenderness to palpation at Left midaxillary line superior to the umbilicus ABDOMEN: Soft, nontender, not distended, normoactive bowel sounds, no guarding, no rebound, no masses. MUSCULOSKELETAL: Normal range of motion at all joints. No bony deformities or tenderness. No CVA tenderness. UPPER EXTREMITIES: scattered abrasions on Right forearm. No cyanosis. No peripheral edema. LOWER EXTREMITIES: inocencia LE macerated, with no skin openings. Right LE slightly more erythematous and edematous than Left LE. 2+ pulses, warm. NEUROLOGICAL: Normal speech. PSYCHIATRIC: Cooperative. Good eye contact. Appropriate mood and affect. Laboratory Last Values WBC 10.9 K/mm3 (4.0-10.0) H 06/14/17 19:25 RBC 4.67 M/mm3 (4.00-5.60) 06/14/17 19:25 Hgb 10.5 GM/dL (11.7-16.9) L 06/14/17 19:25 Hct 34.3 % (35.4-49) L 06/14/17 19:25 MCV 73.5 fl (80-96) L 06/14/17 19:25 MCH 22.5 pg (25.7-33.7) L 06/14/17 19:25 MCHC 30.6 g/dl (32.0-35.9) L 06/14/17 19:25 RDW 21.9 % (11.9-15.9) H D 06/14/17 19:25 Plt Count 190 K/MM3 (134-434) D 06/14/17 19:25 MPV 7.8 fl (7.5-11.1) 06/14/17 19:25 Neutrophils % 76.0 % (42.8-82.8) 06/14/17 19:25 Lymphocytes % 6.0 % (8-40) L D 06/14/17 19:25 Monocytes % 7.2 % (3.8-10.2) 06/14/17 19:25 Eosinophils % 9.9 % (0-4.5) H 06/14/17 19:25 Basophils % 0.9 % (0-2.0) 06/14/17 19:25 Hypochromia 1+ 06/14/17 19:25 Platelet Estimate Adequate (NORMAL) 06/14/17 19:25 Anisocytosis 2+ 06/14/17 19:25 Sodium 142 mmol/L (136-145) 06/14/17 17:00 Potassium 4.8 mmol/L (3.5-5.1) 06/14/17 17:00 Chloride 102 mmol/L (98-107) 06/14/17 17:00 Carbon Dioxide 38 mmol/L (21-32) H 06/14/17 17:00 Anion Gap 2 (8-16) L 06/14/17 17:00 BUN 25 mg/dL (7-18) H D 06/14/17 17:00 Creatinine 1.3 mg/dL (0.7-1.3) D 06/14/17 17:00 Creat Clearance w eGFR 55.23 (>60) 06/14/17 17:00 Random Glucose 89 mg/dL (74-106) 06/14/17 17:00 Calcium 8.9 mg/dL (8.5-10.1) 06/14/17 17:00 Total Bilirubin 0.4 mg/dL (0.2-1.0) D 06/14/17 17:00 AST 10 U/L (15-37) L 06/14/17 17:00 ALT 15 U/L (12-78) D 06/14/17 17:00 Alkaline Phosphatase 65 U/L (45-117) D 06/14/17 17:00 Total Protein 7.5 g/dl (6.4-8.2) D 06/14/17 17:00 Albumin 3.2 g/dl (3.4-5.0) L D 06/14/17 17:00 IMAGIN06/14/17 EKG reveals LBBB, afib new onset? 06/14/17 CXR reveals no significant interval change. Mild cardiomegaly. No evidence of acute pulmonary disease. 06/14/[address] without contrast reveals no significant interval change. No acute intracranial pathology. Several stable chronic findings including atrophy , ventricular dilation, microvascular ischemic changes, old lacunar infarct. 06/14/17 inocencia knee XRay reveals no acute fracture or dislocation. 06/14/17 Left Chest XRay reveals no gross rib fracture, no Left pneumothorax, no Left pleural effusion. ASSESSMENT/PLAN: 67yo M with PMH of COPD, IDDM, chronic inocencia LE wounds presents S/P fall admitted to Telemetry Observation for ?new onset afib. 1) Left sided chest pain - likely 2/2 fall vs cardiac arrhythmia vs PE - atypical pleuritic chest pain with onset s/p fall - Wells score 0 - cardiac monitoring on Telemetry - Percocet 5/325 q6hr prn for pain - incentive spirometry to prevent atelectasis 2) afib - question if this is new onset afib. [facility] (Dr. Blanton) confirmed hx of [place]. - Cardiac Consult - cont. home med of Plavix 75mg PO daily 3) inocencia LE wounds - cont. home wound care regimen 4) COPD - cont. home meds of Albuterol 1 neb QID prn, Duoneb 1 neb IH QID, Symbicort 160/4.5mcg 1 inh PO BID, Spiriva 1 inh IH daily - cont. 3L O2 via nasal cannula 5) IDDM - poc fingerstick QID - sliding scale insulin initiated - cont. home Levemir 10U SQ BID 6) FEN - Fluids: none indicated - Electrolytes: wnl, cont. to monitor - Nutrition: diabetic, low sodium diet 7) Prophylaxis - Lovenox 40mg SQ BID for DVT prophylaxis Visit type - Emergency Visit Emergency Visit: Yes ED Registration Date: 06/14/17 Care time: The patient presented to the Emergency Department on the above date and was hospitalized for further evaluation of their emergent condition. - New Patient This patient is new to me today: Yes Date on this admission: 06/15/17 - Critical Care Critical Care patient: No
--- NOTE | 2017-06-15 00:43 | PN ---
Teaching Attending Note Name of Resident: Lisa Frances ATTENDING PHYSICIAN STATEMENT I saw and evaluated the patient. I reviewed the resident's note and discussed the case with the resident. I agree with the resident's findings and plan as documented. SUBJECTIVE: 67 year old male presenting to the ED after en episode of trip and fall that occurred the night before . He reports stepping on wet surface, falling on his left side , however sustaining abrasion to right side of his forehead and nose . Denies loss of consciousness. Patients reported declining functional status and history of falls . Denies chest pain. PMH : DM, CAD, CVA, CKD, COPD oxygen dependent ALL : amoxicillin Home Medication List Medication Instructions Recorded Confirmed Type Acetaminophen [Tylenol -] 325 mg PO BID PRN 06/14/17 06/14/17 History Albuterol 0.083% Nebulizer Kala 1 neb NEB QID 06/14/17 06/14/17 History [Ventolin 0.083%] Albuterol 2.5/Ipratropium 0.5 1 neb IH QID 06/14/17 06/14/17 History [Duoneb -] Aspirin [ASA -] 81 mg PO DAILY 06/14/17 06/14/17 History Budesonide/Formeterol Fumarate 1 inh PO BID 06/14/17 06/14/17 History [SYMBICORT 160/4.5mcg -] Cholecalciferol (Vitamin D3) 1,000 unit PO DAILY 06/14/17 06/14/17 History [Vitamin D3 -] Citalopram Hydrobromide [Celexa -] 10 mg PO DAILY 06/14/17 06/14/17 History Clopidogrel Bisulfate [Plavix -] 75 mg PO DAILY 06/14/17 06/14/17 History Cyanocobalamin (Vitamin B-12) 50 mcg PO DAILY 06/14/17 06/14/17 History [Vitamin B-12] Insulin (Levemir) [Levemir Vial] 10 units SQ BID 06/14/17 06/14/17 History Insulin Sliding Scale [Novolog 0 units SQ ACHS 06/14/17 06/14/17 History Vial Sliding Scale -] Nystatin Cream [Mycostatin] 1 applic TP BID 06/14/17 06/14/17 History Ranitidine [Zantac -] 150 mg PO DAILY 06/14/17 06/14/17 History Rosuvastatin [Crestor -] 5 mg PO HS 06/14/17 06/14/17 History Tiotropium [place] [Spiriva] 1 inh IH DAILY 06/14/17 06/14/17 History Torsemide [Demadex] 20 mg PO DAILY 06/14/17 06/14/17 History Acetaminophen W/ Codeine #3 1 - 2 tab PO Q6H PRN 06/15/17 06/15/17 History [Tylenol # 3 -] Social History : Former smoker lives with family good social support poor functional status, ambulates in wheelchair OBJECTIVE: Vital Signs Temperature 98.7 F 06/14/17 15:25 Pulse Rate 80 06/15/17 00:08 Respiratory Rate 20 06/15/17 00:08 Blood Pressure 116/67 06/15/17 00:08 O2 Sat by Pulse Oximetry (%) 92 L 06/15/17 00:08 HEENT : normocephalic, abrasion on the skin of forehead and nose, no lacerations CVS: s1/s2 heard, no MRG RS : decreased air entry b/l bases L>R ABD : soft obese NT EXT : dressing in place CBC, BMP 06/14/17 19:25 06/14/17 17:00 EKG LBBB, Mobitz 1 ASSESSMENT AND PLAN: 1. Fall , possible syncope- although patient reports trip and fall, he is an unreliable historian and considering extensive cardiac history can not exclude arrhythmia - monitor on telemetry - cardiology evaluation Dr Pacheco 2. Left sided chest pain , reproducible, atypical - unlikely cardiac in nature. Possibly traumatic . No evidence of rib fracture. - will provide pain control - incentive spirometry 3. COPD- stable at baseline now, no wheezing , chronic hypecapnea - c/w outpatient med regimen and O2 supplementation 4. DM - insulin SS OBSERVATIOn
[2017-06-15] MEDS ORDERED: oxyCODONE HCL 5 MG TABLET PO PRN (00:54)
[2017-06-15] MEDS ORDERED: ACETAMINOPHEN 325 MG TABLET (FP) PO PRN ×2 (00:54→01:51)
[2017-06-15] MEDS ORDERED: ALBUTEROL SO4 0.083% IH SOL 2.5 MG/3 ML VIAL.NEB. NEB PRN (02:05)
[2017-06-15 03:13] VITALS: BMI 33.7
[2017-06-15] MEDS ORDERED: PT OWN MED DRAWER 7, Y5N ONE ×3 (05:42→21:15)
[2017-06-15] MEDS: ALBUTEROL SO4 2.5/IPRATROPIUM 0.5 INH SOL 3 ML VIAL.NEB. NEB SCH ×4 (06:27→23:32)
[2017-06-15] MEDS: INSULIN SLIDING SCALE (NOVOLOG) 1 VIAL SQ SCH ×4 (06:42→21:19)
[2017-06-15] MEDS: BUDESONIDE/FORMETEROL FUMARATE 160/4.5 mcg INHALER IH SCH ×3 (06:42→21:17)
[2017-06-15] MEDS: NYSTATIN 100,000 UNIT/GM TOPICAL CREAM 15 GM TUBE TP SCH ×3 (06:42→21:20)
[2017-06-15 07:08] LABS: BASOPHIL 0.4 % (0-2.0); EOSINOPHIL 5.8 % (0-4.5); MCH 21.9 pg (25.7-33.7); MCHC 29.9 g/dl (32.0-35.9); MEAN CELL VOLUME 73.4 fl (80-96); MEAN PLT VOLUME 7.6 fl (7.5-11.1); NEUTROPHILS 79.8 % (42.8-82.8); PLATELET COUNT 239 K/MM3 (134-434); RDW 22.3 % (11.9-15.9); WHITE BLOOD COUNT 9.6 K/mm3 (4.0-10.0)
[2017-06-15 07:17] LABS: ANION GAP 3 (8-16); CALCIUM 8.1 mg/dL (8.5-10.1); CO2 39 mmol/L (21-32); CREATININE 1.4 mg/dL (0.7-1.3); GLUCOSE,RANDOM 112 mg/dL (74-106)
--- NOTE | 2017-06-15 09:02 | EKG ---
Test Reason : Blood Pressure : / mmHG Vent. Rate : 058 BPM Atrial Rate : 088 BPM P-R Int : 000 ms QRS Dur : 144 ms QT Int : 496 ms P-R-T Axes : 000 023 110 degrees QTc Int : 486 ms SINUS BRADYCARDIA WITH MOBITZ I ([place]) BLOCK LEFT BUNDLE BRANCH BLOCK ABNORMAL ECG Confirmed by ARACELIS HORNE MD ([id number]) on 06/15/2017 9:01:53 AM Referred By: Confirmed By:ARACELIS HORNE MD
[2017-06-15] MEDS: CITALOPRAM HYDROBROMIDE 10 MG TABLET (FP) PO SCH (09:50)
[2017-06-15] MEDS: TORSEMIDE 20 MG TABLET (FP) PO SCH (09:50)
[2017-06-15] MEDS: CHOLECALCIFEROL (VITAMIN D3) 1,000 UNIT TABLET (FP) PO SCH (09:50)
[2017-06-15] MEDS: INSULIN DETEMIR 100 UNITS/ML MDV SQ SCH ×2 (09:51→21:19)
[2017-06-15] MEDS: ASPIRIN 81 MG CHEWABLE TABLETS PO SCH (09:51)
[2017-06-15] MEDS: RANITIDINE HCL 150 MG TABLET (FP) PO SCH (09:51)
[2017-06-15] MEDS: CLOPIDOGREL BISULFATE 75 MG TABLET (FP) PO SCH (09:51)
[2017-06-15] MEDS: ENOXAPARIN NA (PORCINE) 40 MG/0.4 ML DISP.SYRIN SQ SCH (09:52)
[2017-06-15] MEDS: CYANOCOBALAMIN (VITAMIN B-12) 100 MCG TABLET PO SCH ×2 (09:57→10:04)
[2017-06-15] MEDS: ACLIDINIUM BROMIDE 400 MCG/INH AERO.POWD IH SCH ×3 (09:58→21:17)
[2017-06-15] MEDS ORDERED: ENOXAPARIN NA (PORCINE) 30 MG/0.3 ML DISP.SYRIN SQ SCH (10:00)
[2017-06-15] MEDS ORDERED: ALBUTEROL SO4 0.083% IH SOL 2.5 MG/3 ML VIAL.NEB. NEB SCH (10:00)
[2017-06-15] MEDS: oxyCODONE HCL 5 MG TABLET PO PRN (10:09)
[2017-06-15] MEDS: ACETAMINOPHEN 325 MG TABLET (FP) PO PRN (10:10)
--- NOTE | 2017-06-15 10:12 | CON.CARD ---
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 Pt reports he leaned on a rocking chair and it moved and he slipped and fell. No loc or prodrome sxs and he stood up right away. He has pain in left flank/left chest from where he bumped himself. No sob, palps, dizzy, loc, pnd, orthopnea. LE edema has been stable. Sees Dr Blanton for cardio. pmh: per hpi psh: le bypass social: +tobacco fam: nc ros: per hpi; no fever, diarrhea, nasal congestion, vision changes, EWING, GIB meds: Home Medications Medication Instructions Recorded Acetaminophen [Tylenol -] 325 mg PO BID PRN 06/14/17 Albuterol 0.083% Nebulizer Kala 1 neb NEB QID 06/14/17 [Ventolin 0.083%] Albuterol 2.5/Ipratropium 0.5 1 neb IH QID 06/14/17 [Duoneb -] Aspirin [ASA -] 81 mg PO DAILY 06/14/17 Budesonide/Formeterol Fumarate 1 inh PO BID 06/14/17 [SYMBICORT 160/4.5mcg -] Cholecalciferol (Vitamin D3) 1,000 unit PO DAILY 06/14/17 [Vitamin D3 -] Citalopram Hydrobromide [Celexa -] 10 mg PO DAILY 06/14/17 Clopidogrel Bisulfate [Plavix -] 75 mg PO DAILY 06/14/17 Cyanocobalamin (Vitamin B-12) 50 mcg PO DAILY 06/14/17 [Vitamin B-12] Insulin (Levemir) [Levemir Vial] 10 units SQ BID 06/14/17 Insulin Sliding Scale [Novolog 0 units SQ ACHS 06/14/17 Vial Sliding Scale -] Nystatin Cream [Mycostatin] 1 applic TP BID 06/14/17 Ranitidine [Zantac -] 150 mg PO DAILY 06/14/17 Rosuvastatin [Crestor -] 5 mg PO HS 06/14/17 Tiotropium [place] [Spiriva] 1 inh IH DAILY 06/14/17 Torsemide [Demadex] 20 mg PO DAILY 06/14/17 Acetaminophen W/ Codeine #3 1 - 2 tab PO Q6H PRN 06/15/17 [Tylenol # 3 -] pe: Vital Signs Period Temp Pulse Resp BP Sys/Mullen Pulse Ox Last 24 Hr 98.1 F-98.7 F 74-90 18-22 116-145/67-74 90-97 nad, no jvd rrr s1s2 no mrg cta bl nl eff aaox3 abd nt nd pos bs pos dp pt no jaundice diaphoresis non pitting le edema b/l with chronic stasis changes of skin +chest wall tenderness Laboratory Last Values WBC 9.6 K/mm3 (4.0-10.0) 06/15/17 06:30 RBC 4.46 M/mm3 (4.00-5.60) 06/15/17 06:30 Hgb 9.8 GM/dL (11.7-16.9) L 06/15/17 06:30 Hct 32.7 % (35.4-49) L 06/15/17 06:30 MCV 73.4 fl (80-96) L 06/15/17 06:30 MCH 21.9 pg (25.7-33.7) L 06/15/17 06:30 MCHC 29.9 g/dl (32.0-35.9) L 06/15/17 06:30 RDW 22.3 % (11.9-15.9) H 06/15/17 06:30 Plt Count 239 K/MM3 (134-434) D 06/15/17 06:30 MPV 7.6 fl (7.5-11.1) 06/15/17 06:30 Neutrophils % 79.8 % (42.8-82.8) 06/15/17 06:30 Lymphocytes % 6.3 % (8-40) L 06/15/17 06:30 Monocytes % 7.7 % (3.8-10.2) 06/15/17 06:30 Eosinophils % 5.8 % (0-4.5) H 06/15/17 06:30 Basophils % 0.4 % (0-2.0) 06/15/17 06:30 Hypochromia 1+ 06/14/17 19:25 Platelet Estimate Adequate (NORMAL) 06/14/17 19:25 Anisocytosis 2+ 06/14/17 19:25 Sodium 144 mmol/L (136-145) 06/15/17 06:30 Potassium 4.9 mmol/L (3.5-5.1) 06/15/17 06:30 Chloride 102 mmol/L (98-107) 06/15/17 06:30 Carbon Dioxide 39 mmol/L (21-32) H 06/15/17 06:30 Anion Gap 3 (8-16) L 06/15/17 06:30 BUN 27 mg/dL (7-18) H 06/15/17 06:30 Creatinine 1.4 mg/dL (0.7-1.3) H 06/15/17 06:30 Creat Clearance w eGFR 55.23 (>60) 06/14/17 17:00 POC Glucometer 126 UNITS (()) 06/15/17 06:14 Random Glucose 112 mg/dL (74-106) H D 06/15/17 06:30 Calcium 8.1 mg/dL (8.5-10.1) L 06/15/17 06:30 Total Bilirubin 0.4 mg/dL (0.2-1.0) D 06/14/17 17:00 AST 10 U/L (15-37) L 06/14/17 17:00 ALT 15 U/L (12-78) D 06/14/17 17:00 Alkaline Phosphatase 65 U/L (45-117) D 06/14/17 17:00 Total Protein 7.5 g/dl (6.4-8.2) D 06/14/17 17:00 Albumin 3.2 g/dl (3.4-5.0) L D 06/14/17 17:00 ecg 06/14/2017: sr, mobitz I, lbbb, no sig change priors echo 10/2012: nl lv/rv, no sig valve path echo 04/2015: TDS, non diagnostic study per report echo 11/2015: Nl LV, suboptimal views to assess for RWMA. RV not well visualized , likely nl. At least mild pulmonary HTN. Nl valves. 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 cp: -pt with reproducible MSK cp s/p fall, no indication of cardiac etiology fall: -mechanical fall, no suggestion of cardiac etiology, tele benign chronic venous insuff/LE edema, recurrent cellulitis: -being seen by [facility]/wound team -cont po home torsemide 20 qd PAD: -prior h/o left fem-pop bypass, cont dapt, statin chronic diastolic CHF: -echoes have been unremarkable or very TDS in past, most recent 12/2016 was unremarkable -no pulm edema -no interventions have been felt warranted other than po diuretics--cont same plan here, le edema stable copd: -stable, plans per pulm htn: -stable, controlled hld: -cont statin h/o TIA (2003): -on ASA, statin for sec prevention, cont same irregular heart rhythm/abnormal ecg/Mobitz type 1 second-degree AVB: -chronic finding -event monitor for 2 weeks in 2012 showed occasional mobitz 1 without pauses -has been monitored with observation only, no sx's attributable to this have been noted, no pacing therapy has been rec'd; -no hx of afib -avoid AV arsh blockers -this is a benign rhythm with no associated incr'd risk of syncope or --PM only indicated if freq dizzy or exertional fatigue which is documented to be associated with this rhythm (e.g. on event monitor or treadmill test) -cont to observe clinically cardiac sanchez stable for dc
--- NOTE | 2017-06-15 12:52 | PN ---
Teaching Attending Note Name of Resident: Mikey Connell ATTENDING PHYSICIAN STATEMENT I saw and evaluated the patient. I reviewed the resident's note and discussed the case with the resident. I agree with the resident's findings and plan as documented. SUBJECTIVE:c/o L sided CP. states he tripped yesterday and lost his footing. denies any symptoms prior to or after the incident. denies CP, SOB, dizzyness, lightheadedness or LOC. landed on his Left side and his face. was able to get back up without difficulty and only came to the hospital because he had some bleeding from his face and hes on plavix. denies SOB, fever, chills, palpitations, dizzyness, N/V/C/D OBJECTIVE: Last Vital Signs Temp Pulse Resp BP Pulse Ox 98.1 F 69 22 128/73 97 06/15/17 06:44 06/15/17 09:00 06/15/17 06:44 06/15/17 06:44 06/15/17 09:00 General NAD HEENT excoriation of skin with dried blood to bridge of nose and cheekbone. area tender. no active bleeding CV S1 S2 RRR no murmur/rub/gallop + L chest wall tenderness no chest wall deformity lungs CTA B/L no wheezing/rales/rhonchi ASSESSMENT AND PLAN: 67yo M wtih extensive pmhx presented after mechanical fall 1. Mechanical fall- self reports no LOC or symptoms prior to or after. no signs of neurolgoical or cardiac etiology for the fall. no events on set staff fitter. all imaging studies negative for fracture or bleeding. recent echo stated done by cardiology. no indication to repeat. PT eval 2. CP- musculoskeletal. no events on set staff fitter. pain is reproducible. tylenol prn pain 3. acute microcytic anemia- likely due to acute blood loss from abrasions to face. will repeat hgb ensure it is stable. no indications for blood transfusion 4. THERESA- likely dehydration. Cr baseline 1.1-1.2. will repeat. avoid nephrotoxic medications 5. Mobitz type 1- concern ekg was afib but its mobitz type 1. pt has hx of this rhythm. not likely contributory to event 6. d/c planning home today pending stable Hgb and ability to ambulate with PT.
[2017-06-15 13:47] LABS: MCHC 30.3 g/dl (32.0-35.9); MEAN CELL VOLUME 72.7 fl (80-96); MEAN PLT VOLUME 7.8 fl (7.5-11.1); PLATELET COUNT 245 K/MM3 (134-434); RDW 22.5 % (11.9-15.9); WHITE BLOOD COUNT 8.7 K/mm3 (4.0-10.0)
[2017-06-15 14:10] LABS: ANION GAP 3 (8-16); CALCIUM 8.1 mg/dL (8.5-10.1); CO2 37 mmol/L (21-32); CREATININE 1.6 mg/dL (0.7-1.3); GLUCOSE,RANDOM 129 mg/dL (74-106)
[2017-06-15] MEDS ORDERED: SODIUM CHLORIDE 1,000 ML IV SCH ×2 (14:30→15:50)
--- NOTE | 2017-06-15 15:52 | PN ---
Physical Exam: SUBJECTIVE: Patient seen and examined Patient brought in yesterday after a fall. Complaining of left sided chest pain after he fell while trying to grab a rocking chair. Patient was able to pick himself up. Patient did not have any symptoms prior to falling or any symptoms after falling. OBJECTIVE: Vital Signs Period Temp Pulse Resp BP Sys/Mullen Pulse Ox Last 24 Hr 98.1 F-98.8 F 63-90 18-22 116-145/63-74 90-97 GENERAL: Awake, alert, and fully oriented, in no acute distress. HEAD: Normocephalic, with 3cm x 3cm abrasion to Right forehead. tender to palpation EYES: Pupils equal, round and reactive to light, extraocular movements intact, sclera anicteric, conjunctiva clear. No lid lag. EARS, NOSE, THROAT: 2cm x 2cm abrasion to tip of nose-- tender to palpation, with no crepitus. Moist mucous membranes. NECK: Normal range of motion. No midline tenderness to cervical spine. LUNGS: Wheezing present bilaterally, diminished breath sounds bilaterally. HEART: S1, S2 present. No murmurs, rubs, gallops appreciated. CHEST: tenderness to palpation at Left midaxillary line superior to the umbilicus ABDOMEN: Soft, nontender, not distended, normoactive bowel sounds, no guarding, no rebound, no masses. MUSCULOSKELETAL: Normal range of motion at all joints. No bony deformities or tenderness. No CVA tenderness. UPPER EXTREMITIES: scattered abrasions on Right forearm. No cyanosis. No peripheral edema. LOWER EXTREMITIES: inocencia LE macerated, with no skin openings. Right LE slightly more erythematous and edematous than Left LE. 2+ pulses, warm. NEUROLOGICAL: Normal speech. PSYCHIATRIC: Cooperative. Good eye contact. Appropriate mood and affect. Laboratory Results - last 24 hr 06/15/17 06/15/17 06/15/17 06:14 06:30 06:30 WBC 9.6 RBC 4.46 Hgb 9.8 L Hct 32.7 L MCV 73.4 L MCH 21.9 L MCHC 29.9 L RDW 22.3 H Plt Count 239 D MPV 7.6 Neutrophils % 79.8 Lymphocytes % 6.3 L Monocytes % 7.7 Eosinophils % 5.8 H Basophils % 0.4 Sodium 144 Potassium 4.9 Chloride 102 Carbon Dioxide 39 H Anion Gap 3 L BUN 27 H Creatinine 1.4 H POC Glucometer 126 Random Glucose 112 H D Calcium 8.1 L 06/15/17 06/15/17 06/15/17 11:32 13:37 13:37 WBC 8.7 RBC 4.48 Hgb 9.9 L Hct 32.6 L MCV 72.7 L MCH 22.0 L MCHC 30.3 L RDW 22.5 H Plt Count 245 MPV 7.8 Neutrophils % Lymphocytes % Monocytes % Eosinophils % Basophils % Sodium 140 Potassium 4.5 Chloride 100 Carbon Dioxide 37 H Anion Gap 3 L BUN 28 H Creatinine 1.6 H POC Glucometer 146 Random Glucose 129 H Calcium 8.1 L Active Medications Generic Name Dose Route Start Last Admin Trade Name Freq PRN Reason Stop Dose Admin Acetaminophen 325 mg 06/15/17 01:51 Tylenol - PO BID PRN PAIN Acetaminophen 650 mg 06/15/17 05:45 06/15/17 10:10 Tylenol - PO 650 mg Q6H PRN Administration PAIN Aclidinium Chrisman 1 puff 06/15/17 10:00 06/15/17 10:04 Tudorza - IH 1 puff BID RAJESH Administration Albuterol Sulfate 1 amp 06/15/17 02:05 Ventolin 0.083% Nebulizer Soln - NEB QID PRN WHEEZING Albuterol/Ipratropium 1 amp 06/15/17 06:00 06/15/17 11:10 Duoneb - NEB 1 amp QIDR RAJESH Administration Aspirin 81 mg 06/15/17 10:00 06/15/17 09:51 Asa - PO 81 mg DAILY RAJESH Administration Budesonide/Formoterol Fumarate 1 puff 06/15/17 02:00 06/15/17 09:51 Symbicort 160/4.5mcg - IH 1 puff BID RAJESH Administration Cholecalciferol 1,000 unit 06/15/17 10:00 06/15/17 09:50 Vitamin D3 - PO 1,000 unit DAILY RAJESH Administration Citalopram Hydrobromide 10 mg 06/15/17 10:00 06/15/17 09:50 Celexa - PO 10 mg DAILY RAJESH Administration Clopidogrel Bisulfate 75 mg 06/15/17 10:00 06/15/17 09:51 Plavix - PO 75 mg DAILY RAJESH Administration Cyanocobalamin 50 mcg 06/15/17 10:00 06/15/17 10:04 Vitamin B12 - PO 50 mcg DAILY RAJESH Administration Enoxaparin Sodium 40 mg 06/15/17 10:00 06/15/17 09:52 Lovenox - SQ 40 mg DAILY RAJESH Administration Sodium Chloride 1,000 mls @ 75 mls/hr 06/15/17 14:30 06/15/17 15:35 Normal Saline - IV 75 mls/hr ASDIR RAJESH Administration Insulin Aspart 0 vial 06/15/17 07:00 06/15/17 11:35 Novolog Vial Sliding Scale - SQ Not Given ACHS [facility] Protocol Insulin Detemir 10 units 06/15/17 10:00 06/15/17 09:51 Levemir Vial SQ 10 units BID RAJESH Administration Nystatin 1 applic 06/15/17 02:00 06/15/17 09:51 Mycostatin Cream - TP 1 applic BID RAJESH Administration Oxycodone HCl 10 mg 06/15/17 05:45 06/15/17 10:09 Roxicodone - PO 10 mg Q6H PRN Administration PAIN Ranitidine HCl 150 mg 06/15/17 10:00 06/15/17 09:51 Zantac - PO 150 mg DAILY RAJESH Administration Rosuvastatin Calcium 5 mg 06/15/17 22:00 Crestor - PO HS RAJESH Torsemide 20 mg 06/15/17 10:00 06/15/17 09:50 Demadex - PO 20 mg DAILY RAJESH Administration ASSESSMENT/PLAN: 67 year old M presented with left chest pain s/p fall #Mechanical fall -Patient denied LOC -No neurological deficits or cardiac events on monitor -Imaging studies are negative to date -Echocardiogram was done in December of this year-- Negative -Physical therapy will evaluate #Chest Pain, pleuritic left sided -Pain is reproducible on examination -tylenol 650 mg prn #Acute microcytic anemia -hgb is stable and at baseline #THERESA 2/2 to likely dehydration -Creatinine uptrending. -Will gently hydrate #Mobitz type 1 -Patient was originally concerning for A fib, but per cardiology patient has a history of mobitz type 1 -Will monitor Dispo: Patient dc planning for tomorrow once creatinine stabilizes Visit type - Emergency Visit Emergency Visit: Yes ED Registration Date: 06/14/17 Care time: The patient presented to the Emergency Department on the above date and was hospitalized for further evaluation of their emergent condition. - New Patient This patient is new to me today: Yes Date on this admission: 06/15/17 - Critical Care Critical Care patient: No
[2017-06-15] MEDS ORDERED: ROSUVASTATIN CA 5 MG TABLET (FP) PO SCH (22:00)
[2017-06-16] MEDS: oxyCODONE HCL 5 MG TABLET PO PRN ×2 (00:06→08:43)
[2017-06-16] MEDS: INSULIN SLIDING SCALE (NOVOLOG) 1 VIAL SQ SCH ×2 (06:16→12:05)
[2017-06-16] MEDS: ALBUTEROL SO4 2.5/IPRATROPIUM 0.5 INH SOL 3 ML VIAL.NEB. NEB SCH ×2 (06:34→11:03)
[2017-06-16 07:11] LABS: BASOPHIL 0.8 % (0-2.0); EOSINOPHIL 12.2 % (0-4.5); MCH 22.3 pg (25.7-33.7); MCHC 30.7 g/dl (32.0-35.9); MEAN CELL VOLUME 72.6 fl (80-96); MEAN PLT VOLUME 7.6 fl (7.5-11.1); NEUTROPHILS 69.9 % (42.8-82.8); PLATELET COUNT 206 K/MM3 (134-434); RDW 21.8 % (11.9-15.9); WHITE BLOOD COUNT 6.2 K/mm3 (4.0-10.0)
[2017-06-16 07:32] LABS: ANION GAP -1 (8-16); CALCIUM 7.8 mg/dL (8.5-10.1); CO2 38 mmol/L (21-32); CREATININE 1.3 mg/dL (0.7-1.3); GLUCOSE,RANDOM 113 mg/dL (74-106)
[2017-06-16] MEDS: ACETAMINOPHEN 325 MG TABLET (FP) PO PRN (08:45)
[2017-06-16] MEDS: CLOPIDOGREL BISULFATE 75 MG TABLET (FP) PO SCH (10:26)
[2017-06-16] MEDS: RANITIDINE HCL 150 MG TABLET (FP) PO SCH (10:26)
[2017-06-16] MEDS: TORSEMIDE 20 MG TABLET (FP) PO SCH (10:26)
[2017-06-16] MEDS: CITALOPRAM HYDROBROMIDE 10 MG TABLET (FP) PO SCH (10:26)
[2017-06-16] MEDS: CYANOCOBALAMIN (VITAMIN B-12) 100 MCG TABLET PO SCH (10:26)
[2017-06-16] MEDS: ASPIRIN 81 MG CHEWABLE TABLETS PO SCH (10:26)
[2017-06-16] MEDS: CHOLECALCIFEROL (VITAMIN D3) 1,000 UNIT TABLET (FP) PO SCH (10:26)
[2017-06-16] MEDS: INSULIN DETEMIR 100 UNITS/ML MDV SQ SCH (10:27)
[2017-06-16] MEDS: NYSTATIN 100,000 UNIT/GM TOPICAL CREAM 15 GM TUBE TP SCH (10:27)
[2017-06-16] MEDS: ENOXAPARIN NA (PORCINE) 40 MG/0.4 ML DISP.SYRIN SQ SCH (10:27)
[2017-06-16] MEDS: BUDESONIDE/FORMETEROL FUMARATE 160/4.5 mcg INHALER IH SCH (10:28)
[2017-06-16] MEDS: ACLIDINIUM BROMIDE 400 MCG/INH AERO.POWD IH SCH (10:28)
[2017-06-16 10:36] VITALS: BP 148/68; TEMP 97.2
--- NOTE | 2017-06-16 10:40 | DS ---
Physical Exam: LABS Selected Entries 06/14/17 06/16/17 06/16/17 15:25 10:00 11:01 Temperature 98.7 F 97.2 F L Pulse Rate 72 Blood Pressure 129/69 148/68 O2 Sat by Pulse 94 L Oximetry (%) Oxygen Flow 4 Rate Laboratory Tests 06/14/17 06/14/17 06/15/17 17:00 19:25 13:37 WBC 10.9 H Hgb 10.5 L Hct 34.3 L Plt Count 190 D Sodium Potassium Chloride Carbon Dioxide BUN Creatinine 1.3 D 1.6 H 06/16/17 06/16/17 06:30 06:30 WBC 6.2 Hgb 9.3 L Hct 30.2 L Plt Count 206 Sodium 141 Potassium 4.4 Chloride 104 Carbon Dioxide 38 H BUN 26 H Creatinine 1.3 CXR- No significant interval change. Mild cardiomegaly without evidence of acute lung disease. R knee xray-The alignment is satisfactory. Moderate degenerative narrowing of the medial knee joint compartment. No acute fracture or dislocation is identified. A vascular stent is seen in the posterior fossa. L knee xray- The alignment is satisfactory. There is mild degenerative narrowing of the medial knee joint compartment. Multiple surgical metallic clips are noted posteriorly. No acute fracture or dislocation is seen. There is deformity of the proximal fibular shaft likely due to old trauma. Correlation with PA and lateral view of the left leg is needed for further evaluation Left ribs-No gross rib fracture is identified. There is no evidence of a left pneumothorax or pleural effusion. Mild increased markings in the left lung. The heart appears to be enlarged. CT head-Old fracture of the left orbital medial wall. No gross acute orbital floor fracture is identified, bilaterally. Both eye globes are intact. No retrobulbar abnormal attenuation is seen, bilaterally. Chronic sinusitis, as described above. EKG- MOBITZ type 1, well known by robotics software engineer HOSPITAL COURSE: Date of Admission:06/14/17 Date of Discharge: 06/16/17 67yo M with PMH of COPD, IDDM, chronic inocencia LE wounds presented S/P fall. Pt reported he slipped and fell while walking on the sidewalk in the rain. Mechanism of fall is not fully understood. Pt had abrasions to forehead, nose, Right UE, and inocencia knees, but complained only of a mild Left sided pleuritic chest pain which he attributeed to the fall. The chest pain was non-radiating , worse with breathing. Pt did not want to come ER but was convinced to come by his Visiting Nurse, who had come to his home for regular wound care to his inocencia LE. ER course was notable for: (1) EKG revealing Mobitz type 1 (2) Percocet (3) imaging as above Patient admitted for r/o ACS. monitor technician revealed no events. Chest pain was reproducible. Patient self reported no LOC or sx prior to or after fall. Recent echo done by cardiology. Patient was dehydrated and had mild THERESA. THERESA resolved with gentle hydration. Patient was d/c home with the plan to f/u with PCP. Minutes to complete discharge: 45 Discharge Summary Reason For Visit: FALL Current Active Problems THERESA (acute kidney injury) (Acute) Fall (Acute) Traumatic chest pain (Acute) Microcytic anemia (Chronic) Mobitz (type) I (Wenckebach's) atrioventricular block (Chronic) Condition: Stable - Instructions Diet, Activity, Other Instructions: You were in the hospital because you fell down and were having chest pain. For minor pain take tylenol. For severe pain can take percocet. take as instructed. this medication can cause drowsiness and constipation. Do not drive or operate heavy machinery while taking this medication. Please follow up with your primary care provider within 1 week. Please follow up with Dr. Blanton for your next scheduled appointment ( Information Resources Director). Please continue your home medications as prescribed. If you have any chest pain, shortness of breath, or any new symptoms please come back to the hospital immediately. Referrals: Marita Blanton MD [Staff Physician] - Liyah Louise MD [Primary Care Provider] - Disposition: HOME - Home Medications Comprehensive Discharge Medication List: Ambulatory Orders Acetaminophen [Tylenol .Regular Strength -] 325 mg PO BID PRN 06/14/17 Albuterol 0.083% Nebulizer Kala [Ventolin 0.083% Nebulizer Soln -] 1 neb NEB QID 06/14/17 Albuterol 2.5/Ipratropium 0.5 [Duoneb -] 1 neb IH QID 06/14/17 Aspirin [ASA -] 81 mg PO DAILY 06/14/17 Budesonide/Formeterol Fumarate [SYMBICORT 160/4.5mcg -] 1 inh PO BID 06/14/17 Cholecalciferol (Vitamin D3) [Vitamin D3 -] 1,000 unit PO DAILY 06/14/17 Citalopram Hydrobromide [Celexa -] 10 mg PO DAILY 06/14/17 Clopidogrel Bisulfate [Plavix -] 75 mg PO DAILY 06/14/17 Cyanocobalamin (Vitamin B-12) [Vitamin B-12] 50 mcg PO DAILY 06/14/17 Insulin (Levemir) [Levemir Vial] 10 units SQ BID 06/14/17 Insulin Sliding Scale [Novolog Vial Sliding Scale -] 0 units SQ ACHS 06/14/17 Nystatin Cream [Mycostatin Cream -] 1 applic TP BID 06/14/17 Ranitidine [Zantac -] 150 mg PO DAILY 06/14/17 Rosuvastatin [Crestor -] 5 mg PO HS 06/14/17 Tiotropium [employer] [Spiriva] 1 inh IH DAILY 06/14/17 Torsemide [Demadex -] 20 mg PO DAILY 06/14/17 Acetaminophen W/ Codeine #3 [Tylenol # 3 -] 1 - 2 tab PO Q6H PRN 06/15/17 Oxycodone HCl/Acetaminophen [Percocet 5-325 mg Tablet] 1 tab PO Q6H #8 tablet MDD 20 06/16/17 This patient is new to me today: No Emergency Visit: Yes ED Registration Date: 06/14/17 Care time: The patient presented to the Emergency Department on the above date and was hospitalized for further evaluation of their emergent condition. Critical Care patient: No - Discharge Referral Referred to [facility] Med P.C.: No
--- NOTE | 2017-06-16 10:40 | PN ---
Progress Note (short form) - Note Progress Note: s: no sob palps dizzy; msk cp persists but less o: Vital Signs Period Temp Pulse Resp BP Sys/Mullen Pulse Ox Last 24 Hr 97.2 F-98.8 F 64-75 18-20 126-152/64-72 93-95 nad, no jvd rrr s1s2 no mrg cta bl nl eff aaox3 abd nt nd pos bs no jaundice diaphoresis non pitting le edema b/l with chronic stasis changes of skin +chest wall tenderness Current Medications Generic Name Dose Route Start Last Admin Trade Name Freq PRN Reason Stop Dose Admin Acetaminophen 325 mg 06/15/17 01:51 06/16/17 00:10 Tylenol - PO 325 mg BID PRN Administration PAIN Acetaminophen 650 mg 06/15/17 05:45 06/16/17 08:45 Tylenol - PO 650 mg Q6H PRN Administration PAIN Aclidinium Rayne 1 puff 06/15/17 10:00 06/16/17 10:28 Tudorza - IH 1 puff BID RAJESH Administration Albuterol Sulfate 1 amp 06/15/17 02:05 Ventolin 0.083% Nebulizer Soln - NEB QID PRN WHEEZING Albuterol/Ipratropium 1 amp 06/15/17 06:00 06/16/17 06:34 Duoneb - NEB 1 amp QIDR RAJESH Administration Aspirin 81 mg 06/15/17 10:00 06/16/17 10:26 Asa - PO 81 mg DAILY RAJESH Administration Budesonide/Formoterol Fumarate 1 puff 06/15/17 02:00 06/16/17 10:28 Symbicort 160/4.5mcg - IH 1 puff BID RAJESH Administration Cholecalciferol 1,000 unit 06/15/17 10:00 06/16/17 10:26 Vitamin D3 - PO 1,000 unit DAILY RAJESH Administration Citalopram Hydrobromide 10 mg 06/15/17 10:00 06/16/17 10:26 Celexa - PO 10 mg DAILY RAJESH Administration Clopidogrel Bisulfate 75 mg 06/15/17 10:00 06/16/17 10:26 Plavix - PO 75 mg DAILY RAJESH Administration Cyanocobalamin 50 mcg 06/15/17 10:00 06/16/17 10:26 Vitamin B12 - PO 50 mcg DAILY RAJESH Administration Enoxaparin Sodium 40 mg 06/15/17 10:00 06/16/17 10:27 Lovenox - SQ 40 mg DAILY RAJESH Administration Insulin Aspart 0 vial 06/15/17 07:00 06/16/17 06:16 Novolog Vial Sliding Scale - SQ Not Given ACHS [facility] Protocol Insulin Detemir 10 units 06/15/17 10:00 06/16/17 10:27 Levemir Vial SQ 10 units BID RAJESH Administration Nystatin 1 applic 06/15/17 02:00 06/16/17 10:27 Mycostatin Cream - TP 1 applic BID RAJESH Administration Oxycodone HCl 10 mg 06/15/17 05:45 06/16/17 08:43 Roxicodone - PO 10 mg Q6H PRN Administration PAIN Ranitidine HCl 150 mg 06/15/17 10:00 06/16/17 10:26 Zantac - PO 150 mg DAILY RAJESH Administration Rosuvastatin Calcium 5 mg 06/15/17 22:00 06/15/17 21:17 Crestor - PO 5 mg HS RAJESH Administration Torsemide 20 mg 06/15/17 10:00 06/16/17 10:26 Demadex - PO 20 mg DAILY RAJESH Administration CBC, BMP 06/16/17 06:30 06/16/17 06:30 ecg 06/14/2017: sr, mobitz I, lbbb, no sig change priors echo 10/2012: nl lv/rv, no sig valve path echo 04/2015: TDS, non diagnostic study per report echo 11/2015: Nl LV, suboptimal views to assess for RWMA. RV not well visualized , likely nl. At least mild pulmonary HTN. Nl valves. echo 12/2016: nl lv/rv, mild lae, mild mr, mild-mod tr, possible mild as, mild phtn exercise mibi 01/02: no ischemia at 80% mphr cxr: clear lungs tele: sr, mobitz I, no sig kathy/pauses a/p: 67 m hx htn, hld, dm, obesity, tia 2004, lbbb, dchf/venous insuff, recurrent le cellulitis, mobitz 1 avb and first degree avb, pad s/p left fem- pop bypass, smoking, copd, here with le cellulitis. cp: -pt with reproducible MSK cp s/p fall, no indication of cardiac etiology fall: -mechanical fall, no suggestion of cardiac etiology, tele benign chronic venous insuff/LE edema, recurrent cellulitis: -being seen by [facility] surgery/wound team -cont po home torsemide 20 qd PAD: -prior h/o left fem-pop bypass, cont dapt, statin chronic diastolic CHF: -echoes have been unremarkable or very TDS in past, most recent 12/2016 was unremarkable -no pulm edema -no interventions have been felt warranted other than po diuretics--cont same plan here, le edema stable copd: -stable, plans per pulm htn: -stable, controlled hld: -cont statin h/o TIA (2003): -on ASA, statin for sec prevention, cont same irregular heart rhythm/abnormal ecg/Mobitz type 1 second-degree AVB: -chronic finding -event monitor for 2 weeks in 2012 showed occasional mobitz 1 without pauses -has been monitored with observation only, no sx's attributable to this have been noted, no pacing therapy has been rec'd; -no hx of afib -avoid AV arsh blockers -this is a benign rhythm with no associated incr'd risk of syncope or --PM only indicated if freq dizzy or exertional fatigue which is documented to be associated with this rhythm (e.g. on event monitor or treadmill test) -cont to observe clinically cardiac sanchez stable for dc
[2017-06-16 11:02] VITALS: PULSE 72
--- NOTE | 2017-06-16 12:55 | PN ---
Teaching Attending Note Name of Resident: Mikey Connell ATTENDING PHYSICIAN STATEMENT I saw and evaluated the patient. I reviewed the resident's note and discussed the case with the resident. I agree with the resident's findings and plan as documented. SUBJECTIVE:continues to have L sided CP worse on deep inspiration and when he lays on his Left side. tylenol not helping with pain. denies SOB, fever, chills , bleeding, N/V/C/D OBJECTIVE: Last Vital Signs Temp Pulse Resp BP Pulse Ox 97.2 F L 72 20 148/68 94 L 06/16/17 10:06/16/17 11:01 06/16/17 10:00 06/16/17 10:00 06/16/17 11:02 General NAD HEENT excoriation of skin with dried blood to bridge of nose and cheekbone. area tender. no active bleeding CV S1 S2 RRR no murmur/rub/gallop + L chest wall tenderness no chest wall deformity lungs CTA B/L no wheezing/rales/rhonchi ASSESSMENT AND PLAN: 67yo M wtih extensive pmhx presented after mechanical fall 1. Mechanical fall- no repeated episodes. ambulated with PT with RW without difficulty. no events on manual training teacher. 2. CP- musculoskeletal. no events on manual training teacher. pain is reproducible. tylenol prn pain. will prescribe 2 day supply of percocet prn. counseled on side effects of drowsiness and constipation. advised not to drive or operate heavy machinery while taking this medication 3. acute microcytic anemia- likely due to acute blood loss from abrasions to face. hgb stable. no active bleeding 4. THERESA- likely dehydration. Cr baseline 1.1-1.2. trending down. avoid nephrotoxic medications 5. Mobitz type 1- concern ekg was afib but its mobitz type 1. pt has hx of this rhythm. not likely contributory to event 6. d/c home
== END 2017-06-16 11:57 | disposition home or self-care (01) ==
LOC: JER 15:14 → JERBED 22:27 → UNDOADMOB 22:59 → JERBED 22:59 → J4S 06-15 00:26
PROVIDERS: ADMIT Internal Medicine; ATTEND Internal Medicine
PROC: 3E033VG Introduction of Insulin into Peripheral Vein, Percutaneous Approach (ICD-10-PCS; principal; 2017-06-14)
PROC: 3E033GC Introduction of Other Therapeutic Substance into Peripheral Vein, Percutaneous Approach (ICD-10-PCS; 2017-06-14)
PROC: 3E0337Z Introduction of Electrolytic and Water Balance Substance into Peripheral Vein, Percutaneous Approach (ICD-10-PCS; 2017-06-14)
PROC: 3E0F7GC Introduction of Other Therapeutic Substance into Respiratory Tract, Via Natural or Artificial Opening (ICD-10-PCS; 2017-06-14)
DX: R07.1 Chest pain on breathing (principal); S09.90XA Unspecified injury of head, initial encounter; I48.91 Unspecified atrial fibrillation; I25.10 Atherosclerotic heart disease of native coronary artery without angina pectoris; J44.9 Chronic obstructive pulmonary disease, unspecified; I87.2 Venous insufficiency (chronic) (peripheral); I50.32 Chronic diastolic (congestive) heart failure; I12.9 Hypertensive chronic kidney disease with stage 1 through stage 4 chronic kidney disease, or unspecified chronic kidney disease; I44.7 Left bundle-branch block, unspecified; I44.1 Atrioventricular block, second degree; E11.9 Type 2 diabetes mellitus without complications; Z86.73 Personal history of transient ischemic attack (TIA), and cerebral infarction without residual deficits; N18.9 Chronic kidney disease, unspecified; E78.5 Hyperlipidemia, unspecified; Z88.1 Allergy status to other antibiotic agents; Z79.82 Long term (current) use of aspirin; Z79.4 Long term (current) use of insulin; Z95.1 Presence of aortocoronary bypass graft; F17.210 Nicotine dependence, cigarettes, uncomplicated; W01.0XXA Fall on same level from slipping, tripping and stumbling without subsequent striking against object, initial encounter; Y93.01 Activity, walking, marching and hiking; Y92.008 Other place in unspecified non-institutional (private) residence as the place of occurrence of the external cause; E66.9 Obesity, unspecified; Z68.33 Body mass index [BMI] 33.0-33.9, adult; L03.116 Cellulitis of left lower limb; L03.115 Cellulitis of right lower limb; D50.9 Iron deficiency anemia, unspecified; N17.9 Acute kidney failure, unspecified
CPT/HCPCS: 36415; 70450-TC; 70486-TC; 71010-TC; 71101-TC; 73560-TC-LT; 73560-TC-RT; 80048; 80053; 85025; 85027; 93005; 93010; 94010; 94640; 94660; 97116-GP; 97161-GP; 99285-25; G0378

== ENCOUNTER 2017-07-07 12:51 | Inpatient (IN) | payer OTHER ==
[2017-07-07] MEDS ORDERED: VANCOMYCIN 1,000 MG in DEXTROSE 5%-WATER - 250 ML IVPB ONE (14:36)
[2017-07-07] MEDS ORDERED: CEFTRIAXONE 1 GM in DEXTROSE 5%-WATER - 50 ML IVPB ONE (14:41)
[2017-07-07] MEDS ORDERED: PIPERACILLIN/TAZOB 3.375 GM 3.375 GM in DEXTROSE 5%-WATER - 50 ML IVPB SCH (14:45)
--- NOTE | 2017-07-07 14:49 | PDOC ---
History of Present Illness - General Chief Complaint: Wound Infection Stated Complaint: ADMIT (WOUND CARE SENT) Time Seen by Provider: 07/07/17 13:14 History Source: Patient Exam Limitations: No Limitations - History of Present Illness Initial Comments: 07/07/17 15:06 67-year-old male sent in by Dr. Cordon, patient's grounds/maintenance specialist for evaluation of redness and swelling along with drainage noted from the bandage prior to receiving wound care today. Patient was sent to the ER for IV antibiotics and cellulitic treatment. Patient has no complaints of fever, chills , increased pain to the leg, or difficulty breathing. Timing/Duration: unsure Severity: mild Associated Symptoms: reports: denies symptoms Past History - Travel Traveled outside of the country in the last 30 days: No Close contact w/someone who was outside of country & ill: No - Past Medical History Allergies/Adverse Reactions: Allergies Allergy/AdvReac Type Severity Reaction Status Date / Time amoxicillin trihydrate Allergy Unknown Verified 07/07/17 13:05 [From Augmentin] potassium clavulanate Allergy Unknown Verified 07/07/17 13:05 [From Augmentin] Home Medications: Ambulatory Orders Acetaminophen [Tylenol .Regular Strength -] 325 mg PO BID PRN 06/14/17 Albuterol 0.083% Nebulizer Kala [Ventolin 0.083% Nebulizer Soln -] 1 neb NEB QID 06/14/17 Albuterol 2.5/Ipratropium 0.5 [Duoneb -] 1 neb IH QID 06/14/17 Aspirin [ASA -] 81 mg PO DAILY 06/14/17 Budesonide/Formeterol Fumarate [SYMBICORT 160/4.5mcg -] 1 inh PO BID 06/14/17 Cholecalciferol (Vitamin D3) [Vitamin D3 -] 1,000 unit PO DAILY 06/14/17 Citalopram Hydrobromide [Celexa -] 10 mg PO DAILY 06/14/17 Clopidogrel Bisulfate [Plavix -] 75 mg PO DAILY 06/14/17 Cyanocobalamin (Vitamin B-12) [Vitamin B-12] 50 mcg PO DAILY 06/14/17 Insulin (Levemir) [Levemir Vial] 10 units SQ BID 06/14/17 Insulin Sliding Scale [Novolog Vial Sliding Scale -] 0 units SQ ACHS 06/14/17 Nystatin Cream [Mycostatin Cream -] 1 applic TP BID 06/14/17 Ranitidine [Zantac -] 150 mg PO DAILY 06/14/17 Rosuvastatin [Crestor -] 5 mg PO HS 06/14/17 Tiotropium [place] [Spiriva] 1 inh IH DAILY 06/14/17 Torsemide [Demadex -] 20 mg PO DAILY 06/14/17 Acetaminophen W/ Codeine #3 [Tylenol # 3 -] 1 - 2 tab PO Q6H PRN 06/15/17 Oxycodone HCl/Acetaminophen [Percocet 5-325 mg Tablet] 1 tab PO Q6H #8 tablet MDD 20 06/16/17 Anemia: No Cardiac Disorders: Yes (CAD, Left Fem-Pop Bypass) CVA: Yes (no deficit 5 years ago.) COPD: Yes CHF: No Dementia: No Diabetes: Yes GI Disorders: Yes Disorders: No HTN: Yes Hypercholesterolemia: Yes Liver Disease: No Seizures: No Thyroid Disease: No - Surgical History Abdominal Surgery: No Appendectomy: No Cardiac Surgery: Yes (LEFT FEM-POP BYPASS) Cholecystectomy: No Lung Surgery: No Neurologic Surgery: No Orthopedic Surgery: No - Immunization History Immunization Up to Date: No - Psycho/Social/Smoking Cessation Hx Anxiety: No Suicidal Ideation: No Smoking Status: Yes Smoking History: Current every day smoker Have you smoked in the past 12 months: Yes Number of Cigarettes Smoked Daily: 3 If you are a former smoker, when did you quit?: 6 months Information on smoking cessation initiated: No 'Breaking Loose' booklet given: 05/08/17 Hx Alcohol Use: No Drug/Substance Use Hx: No Substance Use Type: None Hx Substance Use Treatment: No Patient Lives Alone: Yes Lives with/in: lives alone Review of Systems - Review of Systems Able to Perform ROS?: No Constitutional: No: Symptoms Reported HEENTM: No: Symptoms Reported Respiratory: No: Symptoms reported Cardiac (ROS): No: Symptoms Reported ABD/GI: No: Symptoms Reported : No: Symptoms Reported Musculoskeletal: No: Symptoms Reported Integumentary: Yes: Erythema Neurological: No: Symptoms reported Hematologic/Lymphatic: No: Symptoms Reported *Physical Exam - Vital Signs Last Vital Signs Temp Pulse Resp BP Pulse Ox 98.3 F 96 H 19 123/47 98 07/07/17 13:05 07/07/17 13:05 07/07/17 13:05 07/07/17 13:05 07/07/17 13:05 - Physical Exam General Appearance: Yes: Nourished, Appropriately Dressed. No: Apparent Distress HEENT: negative: Pale Conjunctivae Respiratory/Chest: positive: Lungs Clear, Normal Breath Sounds. negative: Respiratory Distress, Accessory Muscle Use Cardiovascular: positive: Regular Rhythm, Regular Rate. negative: Murmur Gastrointestinal/Abdominal: positive: Soft. negative: Tenderness Extremity: positive: Normal Range of Motion, Erythema (Nonpitting 3+EDEMA TO BILATERAL LOWER EXTREMITIES) Integumentary: positive: Erythema, Swelling, Other (foul-smelling yellowish fluid noted on wet-to-dry gauze wrapped around right lower calf) Heart Score/ECG Review - ECG Intrepretation Rhythm: Regular Rhythm (rate 86) ED Treatment Course - LABORATORY CBC & Chemistry Diagram: 07/07/17 14:50 07/07/17 14:50 - ADDITIONAL ORDERS Additional order review: Laboratory Results 07/07/17 13:42 POC Glucometer [id number] 07/07/17 13:42 POC Glucometer [id number] - RADIOLOGY Radiology Studies Ordered: Category Date Time Status DUPLEX VASCUL US-1 LEG [US] Stat Ultrasound 07/07/17 14:33 Ordered Medical Decision Making - Medical Decision Making 07/07/17 15:26 Pt here for treatment of cellulitis via IV antibiotics. Patient was seen in wound care today withnoted greenish foul smelling discharge concerning for infection/cellulitis. Patient ordered for vancomycin and ceftriaxone due to patient's allergy to amoxicillin. Will admit patient to [facility] under Dr. Valle. 07/07/17 15:30 Laboratory Tests 07/07/17 14:50 Lactic Acid 2.3 H* 07/07/17 15:41 Laboratory Tests 07/07/17 07/07/17 14:50 14:50 Sodium 136 Potassium 4.8 Anion Gap 35 H BUN 31 H Creatinine 1.8 H D Random Glucose 139 H D Lactic Acid 2.3 H* Calcium 8.0 L Patient ordered for 1 L of normal saline bolus along with second lactic acid and VBG. Patient also added for urine urine culture and chest x-ray. 07/07/17 17:41 dVT study negative Laboratory Tests 07/07/17 07/07/17 07/07/17 14:50 14:50 14:50 WBC 9.7 D Hgb 10.8 L D Hct 34.9 L D Plt Count 324 D Neutrophils % 79.8 Anion Gap 35 H BUN 31 H Creatinine 1.8 H D Random Glucose 139 H D Lactic Acid 2.3 H* Calcium 8.0 L Albumin 2.3 L D *DC/Admit/Observation/Transfer Diagnosis at time of Disposition: Cellulitis of right leg - Discharge Dispostion Admit: Yes - Referrals
[2017-07-07] MEDS ORDERED: VANCOMYCIN 1 GRAM (PRE-DOCKED) 250 ML IVPB ONE (15:09)
[2017-07-07] MEDS ORDERED: CEFTRIAXONE 50 ML ONE (15:10)
[2017-07-07 15:27] LABS: ALBUMIN 2.3 g/dl (3.4-5.0); GLUCOSE,RANDOM 139 mg/dL (74-106)
[2017-07-07 15:30] LABS: ANION GAP 35 (8-16)
[2017-07-07 15:31] LABS: BILIRUBIN,TOTAL 0.2 mg/dL (0.2-1.0); CREATININE 1.8 mg/dL (0.7-1.3); TOT PROT 6.5 g/dl (6.4-8.2)
[2017-07-07 15:32] LABS: ALK PHOS 69 U/L (45-117); SGOT/AST 20 U/L (15-37); SGPT/ALT 15 U/L (12-78)
[2017-07-07] MEDS ORDERED: SODIUM CHLORIDE 1,000 ML IV STA (15:38)
[2017-07-07 15:49] LABS: BASOPHIL 0.9 % (0-2.0); EOSINOPHIL 5.2 % (0-4.5); MCH 22.2 pg (25.7-33.7); MCHC 30.9 g/dl (32.0-35.9); MEAN CELL VOLUME 71.8 fl (80-96); MEAN PLT VOLUME 7.5 fl (7.5-11.1); NEUTROPHILS 79.8 % (42.8-82.8); PLATELET COUNT 324 K/MM3 (134-434); RDW 21.2 % (11.9-15.9); WHITE BLOOD COUNT 9.7 K/mm3 (4.0-10.0)
[2017-07-07] MEDS ORDERED: ACETAMINOPHEN WITH CODEINE 300MG/30MG TABLET PO PRN (16:17)
[2017-07-07] MEDS: INSULIN DETEMIR 100 UNITS/ML MDV SQ SCH (16:56)
[2017-07-07 17:10] LABS: PLATELET ESTIMATE ADEQUATE (NORMAL)
[2017-07-07 17:11] LABS: ANISOCYTOSIS 2+; HYPOCHROMIA 1+; MACROCYTOSIS 1+; OVALOCYTE 1+; POIKILOCYTOSIS 1+; POLYCHROMASIA RARE
--- NOTE | 2017-07-07 17:23 | PN ---
Progress Note (short form) - Note Progress Note: Vascular surgery Pt seen in wound care clinic today. RLE with drainage and erythema. Pt will need IV antibiotics silvadene and DANE for compression. Leg elevation. Will follow Teofilo Cordon DO
[2017-07-07 18:08] LABS: VENOUS PH 7.29 (7.32-7.42)
--- NOTE | 2017-07-07 18:13 | PDOC ---
*Physical Exam - Vital Signs Last Vital Signs Temp Pulse Resp BP Pulse Ox 98.3 F 96 H 19 123/47 98 07/07/17 13:05 07/07/17 13:05 07/07/17 13:05 07/07/17 13:05 07/07/17 13:05 ED Treatment Course - LABORATORY CBC & Chemistry Diagram: 07/07/17 14:50 07/07/17 14:50 - ADDITIONAL ORDERS Additional order review: Laboratory Results 07/07/17 07/07/17 07/07/17 14:50 14:50 13:42 Sodium 136 Potassium 4.8 Chloride 100 Carbon Dioxide Anion Gap 35 H BUN 31 H Creatinine 1.8 H D Creat Clearance w eGFR 37.94 POC Glucometer [id number] Random Glucose 139 H D Lactic Acid 2.3 H* Calcium 8.0 L Total Bilirubin 0.2 D AST 20 D ALT 15 Alkaline Phosphatase 69 Total Protein 6.5 Albumin 2.3 L D 07/07/17 07/07/17 14:50 13:42 RBC 4.86 MCV 71.8 L MCHC 30.9 L RDW 21.2 H MPV 7.5 Neutrophils % 79.8 Lymphocytes % 6.3 L D Monocytes % 7.8 Eosinophils % 5.2 H Basophils % 0.9 POC Glucometer [phone] - Medications Given in the ED: ED Medications Discontinued Medications Generic Name Dose Route Start Last Admin Trade Name Freq PRN Reason Stop Dose Admin Vancomycin HCl 1,000 mg/ 250 mls @ 250 mls/hr 07/07/17 14:36 07/07/17 16:20 Dextrose IVPB 07/07/17 15:35 250 mls/hr ONCE ONE Administration Protocol Ceftriaxone Sodium 1 gm/ 50 mls @ 100 mls/hr 07/07/17 14:41 07/07/17 15:17 Dextrose IVPB 07/07/17 15:10 100 mls/hr ONCE ONE Administration Piperacillin Sod/Tazobactam 50 mls @ 100 mls/hr 07/07/17 14:45 07/07/17 15:07 Sod 3.375 gm/ Dextrose IVPB Not Given ONCE RAJESH Sodium Chloride 1,000 mls @ 1,000 mls/hr 07/07/17 15:38 07/07/17 16:20 Normal Saline - IV 07/07/17 16:37 1,000 mls/hr ASDIR STA Administration Medical Decision Making - Medical Decision Making 07/07/17 18:12 Pt seen by the Advanced Practice Provider under my direct supervision Ancillary studies reviewed I agree with plan as outlined by the Advanced Practice Provider *DC/Admit/Observation/Transfer Diagnosis at time of Disposition: Cellulitis of right leg
[2017-07-07 19:08] LABS: URINE APPEARANCE CLEAR; URINE BILIRUBIN NEGATIVE (NEGATIVE); URINE BLOOD NEGATIVE (NEGATIVE); URINE COLOR LTYELLOW; URINE GLUCOSE (UA) NEGATIVE (NEGATIVE); URINE KETONE NEGATIVE (NEGATIVE); URINE LEUK ESTERASE NEGATIVE (NEGATIVE); URINE NITRITE NEGATIVE (NEGATIVE); URINE PROTEIN NEGATIVE (NEGATIVE); URINE UROBILINOGEN NEGATIVE mg/dL (0.2-1.0)
[2017-07-07 20:37] VITALS: BMI 32.1
--- NOTE | 2017-07-07 21:25 | HP ---
Admitting History and Physical - Primary Care Physician PCP: Noemy Valle S - Admission Chief Complaint: legs edema rash pain History of Present Illness: 67-year-old male h/o multiple medical problems and multiple admissions in the past for legs cellulitis sec to venous stasis dermatitis, DM, sent in by Dr. Cordon, patient's economic specialist for evaluation of redness and swelling along with drainage noted from the bandage prior to receiving wound care today. Patient was sent to the ER for IV antibiotics and cellulitic treatment. Patient has no complaints of fever, chills, increased pain to the leg, or difficulty breathing. History Source: Patient - Past Medical History INDIGO MIXER: Yes: CVA (no deficit, 5 years ago) Cardiovascular: Yes: CAD, HTN, Hyperlipdemia Pulmonary: Yes: COPD (on CPAP at night), O2 Dependent, Other (Cronic respiratory failure, on BIPAP at home) Renal/: Yes: Renal Failure (chronic) Infectious Disease: Yes: Other (Bilat. 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 History of Recent Travel: No Home Medications - Allergies Allergies/Adverse Reactions: Allergies Allergy/AdvReac Type Severity Reaction Status Date / Time amoxicillin trihydrate Allergy Unknown Verified 07/07/17 13:05 [From Augmentin] potassium clavulanate Allergy Unknown Verified 07/07/17 13:05 [From Augmentin] - Home Medications Home Medications: Ambulatory Orders Acetaminophen [Tylenol .Regular Strength -] 325 mg PO BID PRN 06/14/17 Albuterol 0.083% Nebulizer Kala [Ventolin 0.083% Nebulizer Soln -] 1 neb NEB QID 06/14/17 Albuterol 2.5/Ipratropium 0.5 [Duoneb -] 1 neb IH QID 06/14/17 Aspirin [ASA -] 81 mg PO DAILY 06/14/17 Budesonide/Formeterol Fumarate [SYMBICORT 160/4.5mcg -] 1 inh PO BID 06/14/17 Cholecalciferol (Vitamin D3) [Vitamin D3 -] 1,000 unit PO DAILY 06/14/17 Citalopram Hydrobromide [Celexa -] 10 mg PO DAILY 06/14/17 Clopidogrel Bisulfate [Plavix -] 75 mg PO DAILY 06/14/17 Cyanocobalamin (Vitamin B-12) [Vitamin B-12] 50 mcg PO DAILY 06/14/17 Insulin (Levemir) [Levemir Vial] 10 units SQ BID 06/14/17 Insulin Sliding Scale [Novolog Vial Sliding Scale -] 0 units SQ ACHS 06/14/17 Nystatin Cream [Mycostatin Cream -] 1 applic TP BID 06/14/17 Ranitidine [Zantac -] 150 mg PO DAILY 06/14/17 Rosuvastatin [Crestor -] 5 mg PO HS 06/14/17 Tiotropium [place] [Spiriva] 1 inh IH DAILY 06/14/17 Torsemide [Demadex -] 20 mg PO DAILY 06/14/17 Acetaminophen W/ Codeine #3 [Tylenol # 3 -] 1 - 2 tab PO Q6H PRN 06/15/17 Oxycodone HCl/Acetaminophen [Percocet 5-325 mg Tablet] 1 tab PO Q6H #8 tablet MDD 20 06/16/17 Family Disease History - Family Disease History Family Disease History: Diabetes: Daughter Review of Systems - Review of Systems Constitutional: denies: Chills, Fever, Lethargy, Loss of Appetite Neck: denies: Stiffness, Tenderness Cardiovascular: reports: Edema (legs). denies: Palpitations, Shortness of Breath Respiratory: denies: Cough, SOB Gastrointestinal: denies: Abdominal Pain, Bloating, Diarrhea, Vomiting Genitourinary: denies: Dysuria, Flank Pain Musculoskeletal: denies: Joint Swelling, Muscle Pain Integumentary: reports: Rash (legs) Neurological: denies: Confusion, Dizziness, Headache, Pre-Existing Deficit, Seizure, Syncope Hematology/Lymphatic: denies: Easily Bruised, Excessive Bleeding Psychiatric: denies: Altered Sleep Pattern, Anxiety, Depression Physical Examination Vital Signs: Vital Signs Temperature 98.1 F 07/07/17 20:20 Pulse Rate 85 07/07/17 20:20 Respiratory Rate 20 07/07/17 20:20 Blood Pressure 157/76 07/07/17 20:20 O2 Sat by Pulse Oximetry (%) 96 07/07/17 17:45 Constitutional: Yes: No Distress, Calm Eyes: Yes: Conjunctiva Clear HENT: Yes: Atraumatic Neck: Yes: Supple Cardiovascular: Yes: Regular Rate and Rhythm Respiratory: Yes: CTA Bilaterally Gastrointestinal: Yes: Soft. No: Distention, Tenderness Renal/: No: CVA Tenderness - Left, CVA Tenderness - Right Musculoskeletal: No: Joint Stiffness, Joint Swelling Extremities: No: Cold, Cool, Cyanosis Edema: Yes (legs below knees) Integumentary: Yes: Rash (legs below knees) Neurological: Yes: WNL, Alert, Oriented ...Motor Strength: WNL Psychiatric: Yes: WNL, Alert, Oriented. No: Agitated, Suicidal Ideation Imaging - Results Chest X-ray: Report Reviewed Ultrasound: Report Reviewed Other: Report Reviewed Assessment/Plan 67-year-old male ASHD CHF COPD O2 dep, Bipap prn, venous insufficiency, legs cellulitis, DM, sent in by Dr. Cordon, patient's economic specialist for evaluation of redness and swelling along with drainage noted from the bandage prior to receiving wound care today. Patient was sent to the ER for IV antibiotics and cellulitic treatment. vascular sx and ID eval wound care per vascular sx IV ATB per IDpain med sprn falls DVT PFX f/u labs stop smoking d/w pt DM control d/w pt and PCP dr Ramila Louise Bipap prn
[2017-07-07] MEDS: ROSUVASTATIN CA 5 MG TABLET (FP) PO SCH (22:11)
[2017-07-07] MEDS: NYSTATIN 100,000 UNIT/GM TOPICAL CREAM 15 GM TUBE TP SCH (22:12)
[2017-07-07] MEDS: BUDESONIDE/FORMETEROL FUMARATE 160/4.5 mcg INHALER IH SCH (22:12)
[2017-07-07] MEDS: INSULIN SLIDING SCALE (NOVOLOG) 1 VIAL SQ SCH (22:13)
[2017-07-07] MEDS ORDERED: PT OWN MED DRAWER 7, Y5N ONE (23:06)
[2017-07-08] MEDS: INSULIN SLIDING SCALE (NOVOLOG) 1 VIAL SQ SCH ×4 (06:37→22:03)
[2017-07-08] MEDS: INSULIN DETEMIR 100 UNITS/ML MDV SQ SCH ×2 (06:37→17:47)
--- NOTE | 2017-07-08 06:46 | PN ---
Progress Note, Physician Chief Complaint: in bed NAD awake alert no pain afebrile had BGM 42 and GLU 31 this am asymptomatic is on Levemir sq 10 U bid (used to be on 35 U bid home) will cut to 5 U bid asked for percocet prn instead of tylenol #3 d/w pt risks falls tolerance dependence and respiratory failure associated with opiates; he is aware; to use it prn only - Current Medication List Current Medications: Active Medications Acetaminophen (Tylenol -) 325 mg PO BID PRN PRN Reason: PAIN Acetaminophen/Codeine Phosphate (Tylenol # 3 -) 1 tab PO Q6H PRN PRN Reason: PAIN Last Admin: 07/07/17 22:11 Dose: 1 tab Aclidinium [place] (Tudorza -) 1 puff IH BID [facility] Albuterol Sulfate (Ventolin 0.083% Nebulizer Soln -) 1 amp NEB QID PRN PRN Reason: WHEEZING Aspirin (Asa -) 81 mg PO DAILY [facility] Budesonide/Formoterol Fumarate (Symbicort 160/4.5mcg -) 1 puff IH BID [facility] Last Admin: 07/07/17 22:12 Dose: 1 puff Cholecalciferol (Vitamin D3 -) 1,000 unit PO DAILY [facility] Citalopram Hydrobromide (Celexa -) 10 mg PO DAILY [facility] Clopidogrel Bisulfate (Plavix -) 75 mg PO DAILY [facility] Ceftriaxone Sodium 1 gm/ (Dextrose) 50 mls @ 100 mls/hr IVPB DAILY [facility] Vancomycin HCl 1 mg/ Dextrose 250 mls @ 250 mls/hr IVPB DAILY [facility] PRN Reason: Protocol Insulin Aspart (Novolog Vial Sliding Scale -) 1 vial SQ ACHS RAJESH PRN Reason: Protocol Last Admin: 07/08/17 06:37 Dose: Not Given Insulin Detemir (Levemir Vial) 10 units SQ BIDI [facility] Last Admin: 07/08/17 06:37 Dose: Not Given Nystatin (Mycostatin Cream -) 1 applic TP BID [facility] Last Admin: 07/07/17 22:12 Dose: 1 applic Ranitidine HCl (Zantac -) 150 mg PO DAILY [facility] Rosuvastatin Calcium (Crestor -) 5 mg PO HS [facility] Last Admin: 07/07/17 22:11 Dose: 5 mg Torsemide (Demadex -) 20 mg PO DAILY RAJESH - Objective Vital Signs: Vital Signs Temperature 97.7 F 07/08/17 05:57 Pulse Rate 62 07/08/17 05:57 Respiratory Rate 20 07/08/17 05:57 Blood Pressure 140/61 07/08/17 05:57 O2 Sat by Pulse Oximetry (%) 96 07/08/17 03:35 Constitutional: Yes: No Distress, Calm Eyes: Yes: Conjunctiva Clear HENT: Yes: Atraumatic Neck: Yes: Supple Cardiovascular: Yes: Regular Rate and Rhythm Respiratory: Yes: CTA Bilaterally Gastrointestinal: Yes: Soft. No: Distention, Tenderness Genitourinary: No: CVA Tenderness - Left, CVA Tenderness - Right Musculoskeletal: No: Joint Stiffness, Joint Swelling Extremities: No: Cold, Cool, Cyanosis Edema: Yes (less) Integumentary: Yes: Venous Stasis Changes. No: Rash Neurological: Yes: WNL, Alert, Oriented ...Motor Strength: WNL Psychiatric: Yes: WNL, Alert, Oriented. No: Agitated, Suicidal Ideation - ....Imaging Other: Report Reviewed Assessment/Plan 67-year-old male ASHD CHF COPD O2 dep, Bipap prn, venous insufficiency, legs cellulitis, DM, sent in by Dr. Cordon, patient's customs compliance specialist for evaluation of redness and swelling along with drainage noted from the bandage prior to receiving wound care today. Patient was sent to the ER for IV antibiotics and cellulitic treatment. wound care per vascular sx IV ATB per IDpain med sprn falls DVT PFX f/u labs pain meds prn stop smoking d/w pt DM control Bipap prn decrease insulin; f/u BGM
[2017-07-08 07:39] LABS: BASOPHIL 0.8 % (0-2.0); EOSINOPHIL 11.6 % (0-4.5); MCH 22.4 pg (25.7-33.7); MCHC 31.2 g/dl (32.0-35.9); MEAN CELL VOLUME 71.6 fl (80-96); MEAN PLT VOLUME 7.6 fl (7.5-11.1); NEUTROPHILS 72.8 % (42.8-82.8); PLATELET COUNT 307 K/MM3 (134-434); RDW 20.5 % (11.9-15.9); WHITE BLOOD COUNT 7.5 K/mm3 (4.0-10.0)
[2017-07-08 08:07] LABS: ALBUMIN 2.1 g/dl (3.4-5.0); ANION GAP 7 (8-16); CALCIUM 7.9 mg/dL (8.5-10.1); CO2 31 mmol/L (21-32)
[2017-07-08 08:11] LABS: ALK PHOS 65 U/L (45-117); BILIRUBIN,TOTAL 0.4 mg/dL (0.2-1.0); CREATININE 1.3 mg/dL (0.7-1.3); SGOT/AST 13 U/L (15-37); SGPT/ALT 12 U/L (12-78); TOT PROT 5.8 g/dl (6.4-8.2)
[2017-07-08 08:45] LABS: GLUCOSE,RANDOM 31 mg/dL (74-106)
[2017-07-08] MEDS ORDERED: PT OWN MED DRAWER 7, Y5N ONE ×2 (09:33→18:16)
[2017-07-08] MEDS ORDERED: DEXTROSE 5%-WATER - 50 ML IVPB ONE (09:34)
[2017-07-08] MEDS ORDERED: cefTRIAXone SODIUM 1 GM VIAL ONE (09:34)
[2017-07-08] MEDS: TORSEMIDE 20 MG TABLET (FP) PO SCH (09:40)
[2017-07-08] MEDS: BUDESONIDE/FORMETEROL FUMARATE 160/4.5 mcg INHALER IH SCH ×2 (09:40→22:03)
[2017-07-08] MEDS: CITALOPRAM HYDROBROMIDE 10 MG TABLET (FP) PO SCH (09:40)
[2017-07-08] MEDS: ASPIRIN 81 MG CHEWABLE TABLETS PO SCH (09:40)
[2017-07-08] MEDS: CLOPIDOGREL BISULFATE 75 MG TABLET (FP) PO SCH (09:40)
[2017-07-08] MEDS: ACLIDINIUM BROMIDE 400 MCG/INH AERO.POWD IH SCH ×2 (09:40→22:05)
[2017-07-08] MEDS: RANITIDINE HCL 150 MG TABLET (FP) PO SCH (09:40)
[2017-07-08] MEDS: CHOLECALCIFEROL (VITAMIN D3) 1,000 UNIT TABLET (FP) PO SCH (09:40)
[2017-07-08] MEDS ORDERED: VANCOMYCIN 1 MG in DEXTROSE 5%-WATER - 250 ML IVPB SCH (10:00)
[2017-07-08] MEDS ORDERED: CEFTRIAXONE 1 GM in DEXTROSE 5%-WATER - 50 ML IVPB SCH (10:00)
[2017-07-08] MEDS ORDERED: ACETAMINOPHEN 325 MG TABLET (FP) PO PRN (10:50)
[2017-07-08] MEDS ORDERED: FLU VACCINE QUAD 60 MCG/0.5 ML (MDV 17-18) IM ONE (11:00)
--- NOTE | 2017-07-08 11:20 | PN ---
Progress Note (short form) - Note Progress Note: ID consult dictated imp.reccd sent from wound care with erythema and drainage from RLE no fevers or chills poor historian pmh of venous stasis with recurrent cellulitis and diabetes history of copd with cpap at home and home oxygen rencent admission in april with MRSA/group G strep of leg- discharged with picc line on iv vancomycin recurrent cellulitis venous stais copd diabetes cultures pending switch to ceftaroline Problem List - Problems (1) Cellulitis of right leg Code(s): L03.115 - CELLULITIS OF RIGHT LOWER LIMB (2) Chronic venous stasis dermatitis of both lower extremities Code(s): I83.11 - VARICOSE VEINS OF RIGHT LOWER EXTREMITY WITH INFLAMMATION I83.12 - VARICOSE VEINS OF LEFT LOWER EXTREMITY WITH INFLAMMATION (3) COPD (chronic obstructive pulmonary disease) Code(s): J44.9 - CHRONIC OBSTRUCTIVE PULMONARY DISEASE, UNSPECIFIED Qualifiers : COPD type: COPD with acute exacerbation Qualified Code(s): J44.1 - Chronic obstructive pulmonary disease with (acute) exacerbation (4) Diabetes Code(s): E11.9 - TYPE 2 DIABETES MELLITUS WITHOUT COMPLICATIONS Qualifiers: Diabetes mellitus type: type 2
--- NOTE | 2017-07-08 11:31 | PN ---
Problem List - Problems (1) Cellulitis of right leg Code(s): L03.115 - CELLULITIS OF RIGHT LOWER LIMB (2) Chronic venous stasis dermatitis of both lower extremities Code(s): I83.11 - VARICOSE VEINS OF RIGHT LOWER EXTREMITY WITH INFLAMMATION I83.12 - VARICOSE VEINS OF LEFT LOWER EXTREMITY WITH INFLAMMATION (3) COPD (chronic obstructive pulmonary disease) Code(s): J44.9 - CHRONIC OBSTRUCTIVE PULMONARY DISEASE, UNSPECIFIED Qualifiers : COPD type: COPD with acute exacerbation Qualified Code(s): J44.1 - Chronic obstructive pulmonary disease with (acute) exacerbation (4) Diabetes Code(s): E11.9 - TYPE 2 DIABETES MELLITUS WITHOUT COMPLICATIONS Qualifiers: Diabetes mellitus type: type 2 (5) MRSA cellulitis Code(s): L03.90 - CELLULITIS, UNSPECIFIED B95.62 - METHICILLIN RESIS STAPH INFCT CAUSING DISEASES CLASSD ELSWHR
[2017-07-08] MEDS ORDERED: INSULIN (NOVOLOG) ASPART 100 UNITS/ML 10ML VIAL ONE (12:06)
[2017-07-08] MEDS: NYSTATIN POWDER 100,000 UNITS/GM - 15 GM TOPICAL POWDER TP SCH (12:08)
[2017-07-08] MEDS: SILVER SULFADIAZINE 1% TOP CREAM 50 GM JAR TP SCH (12:08)
[2017-07-08] MEDS: NYSTATIN 100,000 UNIT/GM TOPICAL CREAM 15 GM TUBE TP SCH (12:16)
[2017-07-08] MEDS: oxyCODONE HCL 5 MG TABLET PO PRN (18:51)
[2017-07-08] MEDS: ACETAMINOPHEN 325 MG TABLET (FP) PO PRN (18:52)
[2017-07-08] MEDS: ROSUVASTATIN CA 5 MG TABLET (FP) PO SCH (22:03)
[2017-07-08] MEDS: CEFTAROLINE FOSAMIL ACETATE 600 MG in DEXTROSE 5%-WATER - 100 ML IVPB SCH (22:04)
[2017-07-09] MEDS: NYSTATIN 100,000 UNIT/GM TOPICAL CREAM 15 GM TUBE TP SCH ×3 (01:00→21:51)
[2017-07-09] MEDS ORDERED: PT OWN MED DRAWER 7, Y5N ONE ×2 (06:21→09:03)
[2017-07-09] MEDS: INSULIN DETEMIR 100 UNITS/ML MDV SQ SCH ×2 (06:36→16:27)
[2017-07-09] MEDS: INSULIN SLIDING SCALE (NOVOLOG) 1 VIAL SQ SCH ×4 (06:37→21:51)
[2017-07-09 07:34] LABS: BASOPHIL 0.9 % (0-2.0); EOSINOPHIL 17.5 % (0-4.5); MCH 22.2 pg (25.7-33.7); MCHC 30.5 g/dl (32.0-35.9); MEAN CELL VOLUME 72.8 fl (80-96); MEAN PLT VOLUME 7.7 fl (7.5-11.1); NEUTROPHILS 67.3 % (42.8-82.8); PLATELET COUNT 298 K/MM3 (134-434); RDW 21.2 % (11.9-15.9); WHITE BLOOD COUNT 6.2 K/mm3 (4.0-10.0)
[2017-07-09 08:01] LABS: ANION GAP 6 (8-16); CALCIUM 8.3 mg/dL (8.5-10.1); CO2 33 mmol/L (21-32); GLUCOSE,RANDOM 124 mg/dL (74-106)
[2017-07-09 08:04] LABS: ALK PHOS 58 U/L (45-117); BILIRUBIN,TOTAL 0.3 mg/dL (0.2-1.0); CREATININE 1.4 mg/dL (0.7-1.3); SGOT/AST 15 U/L (15-37); SGPT/ALT 12 U/L (12-78); TOT PROT 5.6 g/dl (6.4-8.2)
--- NOTE | 2017-07-09 08:48 | CONS ---
DATE OF CONSULTATION: DATE OF DICTATION: 07/08/2017 INFECTIOUS DISEASE CONSULTATION REQUESTING PHYSICIAN: Noemy Valle M.D. HISTORY OF PRESENT ILLNESS: This is a 66-year-old man with a history of chronic venous stasis. He was most recently in the hospital in April with recurrent cellulitis of his legs. At that time wound cultures grew MRSA and group G strep, and he was discharged on IV vancomycin for 1 week. He is now sent from Wound Care with increased erythema and drainage from his right leg. He denies any fever or chills. He has some pain in his legs, but not as bad as usual. His breathing is at baseline. He has COPD and uses home oxygen and CPAP at night. Overall, he is a poor historian and really does not like to talk much. PAST MEDICAL HISTORY: Notable for atherosclerotic heart disease, hypertension, diabetes, CVA, hyperlipidemia, COPD, chronic kidney disease. He has had recurrent cellulitis of his legs. He has chronic venous stasis. PAST SURGICAL HISTORY: Notable for a stent. ALLERGIES: He is allergic to AUGMENTIN, but tolerates cephalosporins, which he has received in the past. MEDICATIONS: His medications at home include albuterol nebulizer, aspirin, Symbicort, vitamin D, Celexa, Plavix, vitamin B12, insulin, Zantac, Crestor, Spiriva, Demadex, acetaminophen with codeine, and Percocet. SOCIAL HISTORY: He lives at home with his . He is currently not working. There is no history of any recent travel. FAMILY HISTORY: Notable for diabetes in his daughter. REVIEW OF SYSTEMS: He denies fevers and chills. His breathing is at baseline. He notes increased pain in his legs. PHYSICAL EXAMINATION: General: He is awake and alert, resting comfortably. Vital Signs: Temperature is 97.5, pulse 82, blood pressure 137/55, respiratory rate 20. Saturation 94% on 4 L. HEENT: Normocephalic. Eyes are anicteric. Lungs: Clear to auscultation. Heart: Regular rate and rhythm. Abdomen: Soft and nontender Extremities: Dressings were removed from both legs. He has a large amount of foul-smelling drainage from his right leg. He has venous stasis with associated erythema and drainage of the right leg. The left leg is markedly less red and has minimal drainage. DIAGNOSTIC STUDIES: His labs are notable for white count 7.5, hemoglobin 10, platelets 307. BUN 26, creatinine 1.3. His LFTs are normal. Albumin is 2.1. Blood cultures and wound culture are pending. ASSESSMENT AND PLAN: Based on the patient's prior cultures, I would suggest that we treat him with ceftaroline at this time for a complicated soft tissue infection, to cover skin astrid, including methicillin-resistant Staphylococcus aureus, as he has a history of prior MRSA. Would follow up his cultures. Would maintain contact isolation for MRSA. Further recommendations to follow based on his clinical course. HUNTER STRAUSS M.D. [id number]
[2017-07-09] MEDS: CEFTAROLINE FOSAMIL ACETATE 600 MG in DEXTROSE 5%-WATER - 100 ML IVPB SCH ×2 (10:02→21:51)
[2017-07-09] MEDS: CITALOPRAM HYDROBROMIDE 10 MG TABLET (FP) PO SCH (10:03)
[2017-07-09] MEDS: CHOLECALCIFEROL (VITAMIN D3) 1,000 UNIT TABLET (FP) PO SCH (10:03)
[2017-07-09] MEDS: CLOPIDOGREL BISULFATE 75 MG TABLET (FP) PO SCH (10:03)
[2017-07-09] MEDS: BUDESONIDE/FORMETEROL FUMARATE 160/4.5 mcg INHALER IH SCH ×2 (10:03→21:50)
[2017-07-09] MEDS: ACLIDINIUM BROMIDE 400 MCG/INH AERO.POWD IH SCH ×2 (10:03→21:49)
[2017-07-09] MEDS: ASPIRIN 81 MG CHEWABLE TABLETS PO SCH (10:03)
[2017-07-09] MEDS: NYSTATIN POWDER 100,000 UNITS/GM - 15 GM TOPICAL POWDER TP SCH (10:05)
[2017-07-09] MEDS: SILVER SULFADIAZINE 1% TOP CREAM 50 GM JAR TP SCH (10:05)
[2017-07-09] MEDS: RANITIDINE HCL 150 MG TABLET (FP) PO SCH (10:09)
[2017-07-09] MEDS: TORSEMIDE 20 MG TABLET (FP) PO SCH (10:09)
--- NOTE | 2017-07-09 12:04 | PN ---
Progress Note, Physician Chief Complaint: in bed NAD no new c/o - Current Medication List Current Medications: Active Medications Acetaminophen (Tylenol -) 325 mg PO BID PRN PRN Reason: PAIN Last Admin: 07/08/17 18:52 Dose: 325 mg Acetaminophen (Tylenol -) 325 mg PO Q12H PRN Aclidinium [place] (Tudorza -) 1 puff IH BID [facility] Last Admin: 07/09/17 10:03 Dose: 1 puff Albuterol Sulfate (Ventolin 0.083% Nebulizer Soln -) 1 amp NEB QID PRN PRN Reason: WHEEZING Aspirin (Asa -) 81 mg PO DAILY [facility] Last Admin: 07/09/17 10:03 Dose: 81 mg Budesonide/Formoterol Fumarate (Symbicort 160/4.5mcg -) 1 puff IH BID [facility] Last Admin: 07/09/17 10:03 Dose: 1 puff Cholecalciferol (Vitamin D3 -) 1,000 unit PO DAILY [facility] Last Admin: 07/09/17 10:03 Dose: 1,000 unit Citalopram Hydrobromide (Celexa -) 10 mg PO DAILY [facility] Last Admin: 07/09/17 10:03 Dose: 10 mg Clopidogrel Bisulfate (Plavix -) 75 mg PO DAILY [facility] Last Admin: 07/09/17 10:03 Dose: 75 mg Ceftaroline Fosamil 600 mg/ (Dextrose) 100 mls @ 100 mls/hr IVPB BID RAJESH PRN Reason: Protocol Last Admin: 07/09/17 10:02 Dose: 100 mls/hr Insulin Aspart (Novolog Vial Sliding Scale -) 1 vial SQ ACHS [facility] PRN Reason: Protocol Last Admin: 07/09/17 06:37 Dose: Not Given Insulin Detemir (Levemir Vial) 5 units SQ BIDI [facility] Last Admin: 07/09/17 06:36 Dose: 5 units Nystatin (Mycostatin Cream -) 1 applic TP BID [facility] Last Admin: 07/09/17 11:27 Dose: Not Given Nystatin (Nystop Powder -) 1 applic TP DAILY [facility] Last Admin: 07/09/17 10:05 Dose: 1 applic Oxycodone HCl (Roxicodone -) 5 mg PO Q12H PRN Last Admin: 07/08/17 18:51 Dose: 5 mg Ranitidine HCl (Zantac -) 150 mg PO DAILY [facility] Last Admin: 07/09/17 10:09 Dose: 150 mg Rosuvastatin Calcium (Crestor -) 5 mg PO HS [facility] Last Admin: 07/08/17 22:03 Dose: 5 mg Silver Sulfadiazine (Silvadene -) 1 applic TP DAILY [facility] Last Admin: 07/09/17 10:05 Dose: 1 applic Torsemide (Demadex -) 20 mg PO DAILY [facility] Last Admin: 07/09/17 10:09 Dose: 20 mg - Objective Vital Signs: Vital Signs Temperature 97.8 F 07/09/17 05:28 Pulse Rate 74 07/09/17 05:28 Respiratory Rate 20 07/09/17 05:28 Blood Pressure 128/62 07/09/17 05:28 O2 Sat by Pulse Oximetry (%) 95 07/09/17 07:05 Constitutional: Yes: No Distress, Calm Eyes: Yes: Conjunctiva Clear HENT: Yes: Atraumatic Neck: Yes: Supple Cardiovascular: Yes: Regular Rate and Rhythm Respiratory: Yes: CTA Bilaterally Gastrointestinal: Yes: Soft. No: Distention, Tenderness Genitourinary: No: CVA Tenderness - Left, CVA Tenderness - Right Musculoskeletal: No: Joint Stiffness, Joint Swelling Extremities: No: Cold, Cool Edema: Yes Integumentary: Yes: Rash (legs), Venous Stasis Changes (legs) Neurological: Yes: WNL, Alert, Oriented ...Motor Strength: WNL Psychiatric: Yes: WNL, Alert, Oriented. No: Agitated, Suicidal Ideation Labs: CBC, BMP 07/09/17 06:10 07/09/17 06:10 - ....Imaging Other: Report Reviewed Assessment/Plan 67-year-old male ASHD CHF COPD O2 dep, Bipap prn, venous insufficiency, legs cellulitis, DM, sent in by Dr. Cordon, patient's intensive care medicine specialist for evaluation of redness and swelling and drainage from legs cellulitis sites wound care per vascular sx IV ATB per ID pain med sprn falls DVT PFX f/u labs pain meds prn DM control Bipap prn dw pt and staff
--- NOTE | 2017-07-09 12:21 | PN ---
Progress Note (short form) - Note Progress Note: much more alert eating lunch Vital Signs Period Temp Pulse Resp BP Sys/Mullen Pulse Ox Last 24 Hr 97.8 F-98.4 F 72-75 20-20 120-129/52-62 94-96 cor-rrr llungs clear dressings intact CBC, BMP 07/09/17 06:10 07/09/17 06:10 imp.reccd sent from wound care with erythema and drainage from RLE no fevers or chills poor historian pmh of venous stasis with recurrent cellulitis and diabetes history of copd with cpap at home and home oxygen rencent admission in april with MRSA/group G strep of leg- discharged with picc line on iv vancomycin recurrent cellulitis venous stais copd diabetes cultures pending continue ceftaroline day #1 Problem List - Problems (1) Cellulitis of right leg Code(s): L03.115 - CELLULITIS OF RIGHT LOWER LIMB (2) Chronic venous stasis dermatitis of both lower extremities Code(s): I83.11 - VARICOSE VEINS OF RIGHT LOWER EXTREMITY WITH INFLAMMATION I83.12 - VARICOSE VEINS OF LEFT LOWER EXTREMITY WITH INFLAMMATION (3) COPD (chronic obstructive pulmonary disease) Code(s): J44.9 - CHRONIC OBSTRUCTIVE PULMONARY DISEASE, UNSPECIFIED Qualifiers : COPD type: COPD with acute exacerbation Qualified Code(s): J44.1 - Chronic obstructive pulmonary disease with (acute) exacerbation (4) Diabetes Code(s): E11.9 - TYPE 2 DIABETES MELLITUS WITHOUT COMPLICATIONS Qualifiers: Diabetes mellitus type: type 2 (5) MRSA cellulitis Code(s): L03.90 - CELLULITIS, UNSPECIFIED B95.62 - METHICILLIN RESIS STAPH INFCT CAUSING DISEASES CLASSD [id number]
[2017-07-09] MEDS: ALBUTEROL SO4 0.083% IH SOL 2.5 MG/3 ML VIAL.NEB. NEB PRN (12:52)
[2017-07-09] MEDS: oxyCODONE HCL 5 MG TABLET PO PRN (14:53)
[2017-07-09] MEDS: ACETAMINOPHEN 325 MG TABLET (FP) PO PRN (14:54)
[2017-07-09] MEDS ORDERED: INSULIN DETEMIR 100 UNITS/ML MDV SQ ONE (16:20)
[2017-07-09] MEDS: ROSUVASTATIN CA 5 MG TABLET (FP) PO SCH (21:50)
[2017-07-10] MEDS: INSULIN SLIDING SCALE (NOVOLOG) 1 VIAL SQ SCH ×4 (06:16→21:43)
[2017-07-10] MEDS: INSULIN DETEMIR 100 UNITS/ML MDV SQ SCH ×2 (06:19→16:47)
[2017-07-10] MEDS ORDERED: INSULIN DETEMIR 100 UNITS/ML MDV SQ ONE ×2 (06:39→16:43)
[2017-07-10 06:56] LABS: BASOPHIL 0.9 % (0-2.0); EOSINOPHIL 15.6 % (0-4.5); MCH 22.4 pg (25.7-33.7); MCHC 30.7 g/dl (32.0-35.9); MEAN CELL VOLUME 72.8 fl (80-96); MEAN PLT VOLUME 7.4 fl (7.5-11.1); NEUTROPHILS 69.5 % (42.8-82.8); PLATELET COUNT 314 K/MM3 (134-434); WHITE BLOOD COUNT 7.3 K/mm3 (4.0-10.0)
[2017-07-10 07:10] LABS: ALBUMIN 2.1 g/dl (3.4-5.0); ALK PHOS 62 U/L (45-117); ANION GAP 5 (8-16); BILIRUBIN,TOTAL 0.2 mg/dL (0.2-1.0); CALCIUM 7.7 mg/dL (8.5-10.1); CO2 36 mmol/L (21-32); CREATININE 1.5 mg/dL (0.7-1.3); GLUCOSE,RANDOM 90 mg/dL (74-106); SGOT/AST 16 U/L (15-37); SGPT/ALT 15 U/L (12-78)
--- NOTE | 2017-07-10 08:51 | PN ---
Progress Note, Physician Chief Complaint: in bed nad no new c/o; legs better - Current Medication List Current Medications: Active Medications Acetaminophen (Tylenol -) 325 mg PO BID PRN PRN Reason: PAIN Last Admin: 07/09/17 14:54 Dose: 325 mg Acetaminophen (Tylenol -) 325 mg PO Q12H PRN Aclidinium [place] (Tudorza -) 1 puff IH BID [facility] Last Admin: 07/09/17 21:49 Dose: 1 puff Albuterol Sulfate (Ventolin 0.083% Nebulizer Soln -) 1 amp NEB QID PRN PRN Reason: WHEEZING Last Admin: 07/09/17 12:52 Dose: 1 amp Aspirin (Asa -) 81 mg PO DAILY [facility] Last Admin: 07/09/17 10:03 Dose: 81 mg Budesonide/Formoterol Fumarate (Symbicort 160/4.5mcg -) 1 puff IH BID [facility] Last Admin: 07/09/17 21:50 Dose: 1 puff Cholecalciferol (Vitamin D3 -) 1,000 unit PO DAILY [facility] Last Admin: 07/09/17 10:03 Dose: 1,000 unit Citalopram Hydrobromide (Celexa -) 10 mg PO DAILY [facility] Last Admin: 07/09/17 10:03 Dose: 10 mg Clopidogrel Bisulfate (Plavix -) 75 mg PO DAILY [facility] Last Admin: 07/09/17 10:03 Dose: 75 mg Ceftaroline Fosamil 600 mg/ (Dextrose) 100 mls @ 100 mls/hr IVPB BID [facility] PRN Reason: Protocol Last Admin: 07/09/17 21:51 Dose: 100 mls/hr Insulin Aspart (Novolog Vial Sliding Scale -) 1 vial SQ ACHS [facility] PRN Reason: Protocol Last Admin: 07/10/17 06:16 Dose: Not Given Insulin Detemir (Levemir Vial) 5 units SQ BIDI [facility] Last Admin: 07/10/17 06:19 Dose: 5 units Nystatin (Mycostatin Cream -) 1 applic TP BID [facility] Last Admin: 07/09/17 21:51 Dose: 1 applic Nystatin (Nystop Powder -) 1 applic TP DAILY [facility] Last Admin: 07/09/17 10:05 Dose: 1 applic Oxycodone HCl (Roxicodone -) 5 mg PO Q12H PRN Last Admin: 07/09/17 14:53 Dose: 5 mg Ranitidine HCl (Zantac -) 150 mg PO DAILY [facility] Last Admin: 07/09/17 10:09 Dose: 150 mg Rosuvastatin Calcium (Crestor -) 5 mg PO HS [facility] Last Admin: 07/09/17 21:50 Dose: 5 mg Silver Sulfadiazine (Silvadene -) 1 applic TP DAILY [facility] Last Admin: 07/09/17 10:05 Dose: 1 applic Torsemide (Demadex -) 20 mg PO DAILY [facility] Last Admin: 07/09/17 10:09 Dose: 20 mg - Objective Vital Signs: Vital Signs Temperature 98 F 07/09/17 22:05 Pulse Rate 74 07/09/17 22:05 Respiratory Rate 20 07/09/17 22:05 Blood Pressure 108/55 07/09/17 22:05 O2 Sat by Pulse Oximetry (%) 98 07/09/17 22:50 Constitutional: Yes: No Distress, Calm Eyes: Yes: Conjunctiva Clear HENT: Yes: Atraumatic Neck: Yes: Supple Cardiovascular: Yes: Regular Rate and Rhythm Respiratory: Yes: CTA Bilaterally Gastrointestinal: Yes: Soft. No: Distention, Tenderness Genitourinary: No: CVA Tenderness - Left, CVA Tenderness - Right Musculoskeletal: No: Joint Stiffness, Joint Swelling Extremities: No: Cold, Cool, Cyanosis Edema: Yes Integumentary: Yes: Rash, Venous Stasis Changes Neurological: Yes: WNL, Alert, Oriented ...Motor Strength: WNL Psychiatric: Yes: WNL, Alert, Oriented. No: Agitated, Suicidal Ideation Labs: CBC, BMP 07/10/17 05:50 07/10/17 05:50 - ....Imaging Other: Report Reviewed Assessment/Plan 67-year-old male ASHD CHF COPD O2 dep, Bipap prn, venous insufficiency, legs cellulitis, DM, sent in by Dr. Cordon, patient's welding process specialist for evaluation of redness and swelling and drainage from legs cellulitis sites wound care per vascular sx IV ATB per ID pain med sprn falls DVT PFX f/u labs pain meds prn DM control Bipap prn dw pt and staff
[2017-07-10] MEDS ORDERED: PT OWN MED DRAWER 7, Y5N ONE ×3 (09:35→20:32)
--- NOTE | 2017-07-10 10:03 | PN ---
Progress Note, Physician History of Present Illness: Awake, alert No complaints of leg pain Tolerating cephalosporin Afebrile WBC WNL BC no growth Wound c/s mixed organisms - Current Medication List Current Medications: Active Medications Acetaminophen (Tylenol -) 325 mg PO BID PRN PRN Reason: PAIN Last Admin: 07/09/17 14:54 Dose: 325 mg Acetaminophen (Tylenol -) 325 mg PO Q12H PRN Aclidinium [place] (Tudorza -) 1 puff IH BID [facility] Last Admin: 07/09/17 21:49 Dose: 1 puff Albuterol Sulfate (Ventolin 0.083% Nebulizer Soln -) 1 amp NEB QID PRN PRN Reason: WHEEZING Last Admin: 07/09/17 12:52 Dose: 1 amp Aspirin (Asa -) 81 mg PO DAILY [facility] Last Admin: 07/09/17 10:03 Dose: 81 mg Budesonide/Formoterol Fumarate (Symbicort 160/4.5mcg -) 1 puff IH BID [facility] Last Admin: 07/09/17 21:50 Dose: 1 puff Cholecalciferol (Vitamin D3 -) 1,000 unit PO DAILY [facility] Last Admin: 07/09/17 10:03 Dose: 1,000 unit Citalopram Hydrobromide (Celexa -) 10 mg PO DAILY [facility] Last Admin: 07/09/17 10:03 Dose: 10 mg Clopidogrel Bisulfate (Plavix -) 75 mg PO DAILY [facility] Last Admin: 07/09/17 10:03 Dose: 75 mg Insulin Aspart (Novolog Vial Sliding Scale -) 1 vial SQ ACHS [facility] PRN Reason: Protocol Last Admin: 07/10/17 06:16 Dose: Not Given Insulin Detemir (Levemir Vial) 5 units SQ BIDI [facility] Last Admin: 07/10/17 06:19 Dose: 5 units Nystatin (Mycostatin Cream -) 1 applic TP BID [facility] Last Admin: 07/09/17 21:51 Dose: 1 applic Nystatin (Nystop Powder -) 1 applic TP DAILY [facility] Last Admin: 07/09/17 10:05 Dose: 1 applic Oxycodone HCl (Roxicodone -) 5 mg PO Q12H PRN Last Admin: 07/09/17 14:53 Dose: 5 mg Ranitidine HCl (Zantac -) 150 mg PO DAILY [facility] Last Admin: 07/09/17 10:09 Dose: 150 mg Rosuvastatin Calcium (Crestor -) 5 mg PO HS [facility] Last Admin: 07/09/17 21:50 Dose: 5 mg Silver Sulfadiazine (Silvadene -) 1 applic TP DAILY [facility] Last Admin: 07/09/17 10:05 Dose: 1 applic Torsemide (Demadex -) 20 mg PO DAILY [facility] Last Admin: 07/09/17 10:09 Dose: 20 mg - Objective Vital Signs: Vital Signs Temperature 98 F 07/09/17 22:05 Pulse Rate 74 07/09/17 22:05 Respiratory Rate 20 07/09/17 22:05 Blood Pressure 108/55 07/09/17 22:05 O2 Sat by Pulse Oximetry (%) 98 07/09/17 22:50 Constitutional: Yes: No Distress Eyes: Yes: Conjunctiva Clear Cardiovascular: Yes: Regular Rate and Rhythm, S1, S2 Respiratory: Yes: CTA Bilaterally Gastrointestinal: Yes: Normal Bowel Sounds, Soft. No: Tenderness Extremities: Yes: Other (+ bilateral LE edema erythema R>L LE; serous weepage R LE) Labs: CBC, BMP 07/10/17 05:50 07/10/17 05:50 Assessment/Plan Recurrent bilateral LE cellulitis Chronic venous stasis dermatitis COPD PCN allergy Await wound c/s Continue ceftaroline Local wound care
[2017-07-10] MEDS: ASPIRIN 81 MG CHEWABLE TABLETS PO SCH (10:06)
[2017-07-10] MEDS: CLOPIDOGREL BISULFATE 75 MG TABLET (FP) PO SCH (10:06)
[2017-07-10] MEDS: CHOLECALCIFEROL (VITAMIN D3) 1,000 UNIT TABLET (FP) PO SCH (10:06)
[2017-07-10] MEDS: CITALOPRAM HYDROBROMIDE 10 MG TABLET (FP) PO SCH (10:06)
[2017-07-10] MEDS: TORSEMIDE 20 MG TABLET (FP) PO SCH (10:07)
[2017-07-10] MEDS: BUDESONIDE/FORMETEROL FUMARATE 160/4.5 mcg INHALER IH SCH ×2 (10:07→21:36)
[2017-07-10] MEDS: NYSTATIN POWDER 100,000 UNITS/GM - 15 GM TOPICAL POWDER TP SCH (10:07)
[2017-07-10] MEDS: ACLIDINIUM BROMIDE 400 MCG/INH AERO.POWD IH SCH ×2 (10:07→21:36)
[2017-07-10] MEDS: RANITIDINE HCL 150 MG TABLET (FP) PO SCH (10:07)
[2017-07-10] MEDS: SILVER SULFADIAZINE 1% TOP CREAM 50 GM JAR TP SCH (10:08)
[2017-07-10] MEDS: CEFTAROLINE FOSAMIL ACETATE 600 MG in DEXTROSE 5%-WATER - 100 ML IVPB SCH ×2 (10:16→21:36)
[2017-07-10] MEDS ORDERED: INSULIN (NOVOLOG) ASPART 100 UNITS/ML 10ML VIAL ONE (11:38)
[2017-07-10] MEDS: ACETAMINOPHEN 325 MG TABLET (FP) PO PRN (11:43)
[2017-07-10] MEDS: oxyCODONE HCL 5 MG TABLET PO PRN (11:45)
[2017-07-10] MEDS: NYSTATIN 100,000 UNIT/GM TOPICAL CREAM 15 GM TUBE TP SCH ×2 (13:37→21:36)
[2017-07-10] MEDS: ROSUVASTATIN CA 5 MG TABLET (FP) PO SCH (21:35)
[2017-07-11] MEDS: oxyCODONE HCL 5 MG TABLET PO PRN ×2 (01:36→21:02)
[2017-07-11] MEDS: ACETAMINOPHEN 325 MG TABLET (FP) PO PRN ×2 (01:38→21:03)
[2017-07-11] MEDS: INSULIN SLIDING SCALE (NOVOLOG) 1 VIAL SQ SCH ×4 (06:23→21:00)
[2017-07-11] MEDS: INSULIN DETEMIR 100 UNITS/ML MDV SQ SCH ×2 (06:25→17:25)
[2017-07-11] MEDS ORDERED: PT OWN MED DRAWER 7, Y5N ONE ×3 (09:12→16:26)
[2017-07-11] MEDS: NYSTATIN POWDER 100,000 UNITS/GM - 15 GM TOPICAL POWDER TP SCH (09:32)
[2017-07-11] MEDS: TORSEMIDE 20 MG TABLET (FP) PO SCH (09:32)
[2017-07-11] MEDS: RANITIDINE HCL 150 MG TABLET (FP) PO SCH (09:32)
[2017-07-11] MEDS: CLOPIDOGREL BISULFATE 75 MG TABLET (FP) PO SCH (09:32)
[2017-07-11] MEDS: CITALOPRAM HYDROBROMIDE 10 MG TABLET (FP) PO SCH (09:32)
[2017-07-11] MEDS: ASPIRIN 81 MG CHEWABLE TABLETS PO SCH (09:33)
[2017-07-11] MEDS: BUDESONIDE/FORMETEROL FUMARATE 160/4.5 mcg INHALER IH SCH ×2 (09:33→21:01)
[2017-07-11] MEDS: CHOLECALCIFEROL (VITAMIN D3) 1,000 UNIT TABLET (FP) PO SCH (09:33)
[2017-07-11] MEDS: ACLIDINIUM BROMIDE 400 MCG/INH AERO.POWD IH SCH ×2 (09:33→21:01)
[2017-07-11] MEDS: NYSTATIN 100,000 UNIT/GM TOPICAL CREAM 15 GM TUBE TP SCH ×2 (09:35→21:00)
[2017-07-11] MEDS: CEFTAROLINE FOSAMIL ACETATE 600 MG in DEXTROSE 5%-WATER - 100 ML IVPB SCH ×2 (09:37→21:01)
[2017-07-11] MEDS: SILVER SULFADIAZINE 1% TOP CREAM 50 GM JAR TP SCH (09:40)
--- NOTE | 2017-07-11 10:25 | PN ---
Progress Note, Physician Chief Complaint: in bed NAD afebrile VSS - Current Medication List Current Medications: Active Medications Acetaminophen (Tylenol -) 325 mg PO BID PRN PRN Reason: PAIN Last Admin: 07/11/17 01:38 Dose: 325 mg Acetaminophen (Tylenol -) 325 mg PO Q12H PRN Aclidinium [place] (Tudorza -) 1 puff IH BID [facility] Last Admin: 07/11/17 09:33 Dose: 1 puff Albuterol Sulfate (Ventolin 0.083% Nebulizer Soln -) 1 amp NEB QID PRN PRN Reason: WHEEZING Last Admin: 07/09/17 12:52 Dose: 1 amp Aspirin (Asa -) 81 mg PO DAILY [facility] Last Admin: 07/11/17 09:33 Dose: 81 mg Budesonide/Formoterol Fumarate (Symbicort 160/4.5mcg -) 1 puff IH BID [facility] Last Admin: 07/11/17 09:33 Dose: 1 puff Cholecalciferol (Vitamin D3 -) 1,000 unit PO DAILY [facility] Last Admin: 07/11/17 09:33 Dose: 1,000 unit Citalopram Hydrobromide (Celexa -) 10 mg PO DAILY [facility] Last Admin: 07/11/17 09:32 Dose: 10 mg Clopidogrel Bisulfate (Plavix -) 75 mg PO DAILY [facility] Last Admin: 07/11/17 09:32 Dose: 75 mg Ceftaroline Fosamil 600 mg/ (Dextrose) 100 mls @ 200 mls/hr IVPB BID [facility] PRN Reason: Protocol Last Admin: 07/11/17 09:37 Dose: 200 mls/hr Insulin Aspart (Novolog Vial Sliding Scale -) 1 vial SQ ACHS [facility] PRN Reason: Protocol Last Admin: 07/11/17 06:23 Dose: Not Given Insulin Detemir (Levemir Vial) 5 units SQ BIDI [facility] Last Admin: 07/11/17 06:25 Dose: 5 units Nystatin (Mycostatin Cream -) 1 applic TP BID [facility] Last Admin: 07/11/17 09:35 Dose: 1 applic Nystatin (Nystop Powder -) 1 applic TP DAILY [facility] Last Admin: 07/11/17 09:32 Dose: 1 applic Oxycodone HCl (Roxicodone -) 5 mg PO Q12H PRN Last Admin: 07/11/17 01:36 Dose: 5 mg Ranitidine HCl (Zantac -) 150 mg PO DAILY [facility] Last Admin: 07/11/17 09:32 Dose: 150 mg Rosuvastatin Calcium (Crestor -) 5 mg PO HS [facility] Last Admin: 07/10/17 21:35 Dose: 5 mg Silver Sulfadiazine (Silvadene -) 1 applic TP DAILY [facility] Last Admin: 07/11/17 09:40 Dose: 1 applic Torsemide (Demadex -) 20 mg PO DAILY [facility] Last Admin: 07/11/17 09:32 Dose: 20 mg - Objective Vital Signs: Vital Signs Temperature 98.5 F 07/11/17 09:04 Pulse Rate 71 07/11/17 09:04 Respiratory Rate 18 07/11/17 09:04 Blood Pressure 131/58 07/11/17 09:04 O2 Sat by Pulse Oximetry (%) 97 07/10/17 20:47 Constitutional: Yes: No Distress Eyes: Yes: Conjunctiva Clear HENT: Yes: Atraumatic Neck: Yes: Supple Cardiovascular: Yes: Regular Rate and Rhythm Respiratory: Yes: CTA Bilaterally Gastrointestinal: Yes: Soft. No: Distention Genitourinary: No: CVA Tenderness - Left, CVA Tenderness - Right Musculoskeletal: No: Joint Stiffness, Joint Swelling Extremities: No: Cold, Cool Edema: No Integumentary: Yes: Rash (less), Venous Stasis Changes Neurological: Yes: WNL, Alert, Oriented ...Motor Strength: WNL Psychiatric: Yes: WNL, Alert, Oriented. No: Agitated, Suicidal Ideation Labs: CBC, BMP 07/10/17 05:50 07/10/17 05:50 - ....Imaging Other: Report Reviewed Assessment/Plan 67-year-old male ASHD CHF COPD O2 dep, Bipap prn, venous insufficiency, legs cellulitis, DM, sent in by Dr. Cordon, patient's project specialist for evaluation of redness and swelling and drainage from legs cellulitis sites wound care per vascular sx IV ATB per ID pain med sprn falls DVT PFX f/u labs pain meds prn DM control Bipap prn dw pt and staff
[2017-07-11] MEDS: ALBUTEROL SO4 0.083% IH SOL 2.5 MG/3 ML VIAL.NEB. NEB PRN (10:39)
--- NOTE | 2017-07-11 15:15 | PN ---
Progress Note, Physician History of Present Illness: Awake, alert No complaints of leg pain Tolerating cephalosporin Afebrile WBC WNL BC no growth Wound c/s mixed organisms - Current Medication List Current Medications: Active Medications Acetaminophen (Tylenol -) 325 mg PO BID PRN PRN Reason: PAIN Last Admin: 07/11/17 01:38 Dose: 325 mg Acetaminophen (Tylenol -) 325 mg PO Q12H PRN Aclidinium [place] (Tudorza -) 1 puff IH BID [facility] Last Admin: 07/11/17 09:33 Dose: 1 puff Albuterol Sulfate (Ventolin 0.083% Nebulizer Soln -) 1 amp NEB QID PRN PRN Reason: WHEEZING Last Admin: 07/11/17 10:39 Dose: 1 amp Aspirin (Asa -) 81 mg PO DAILY [facility] Last Admin: 07/11/17 09:33 Dose: 81 mg Budesonide/Formoterol Fumarate (Symbicort 160/4.5mcg -) 1 puff IH BID [facility] Last Admin: 07/11/17 09:33 Dose: 1 puff Cholecalciferol (Vitamin D3 -) 1,000 unit PO DAILY [facility] Last Admin: 07/11/17 09:33 Dose: 1,000 unit Citalopram Hydrobromide (Celexa -) 10 mg PO DAILY [facility] Last Admin: 07/11/17 09:32 Dose: 10 mg Clopidogrel Bisulfate (Plavix -) 75 mg PO DAILY [facility] Last Admin: 07/11/17 09:32 Dose: 75 mg Ceftaroline Fosamil 600 mg/ (Dextrose) 100 mls @ 200 mls/hr IVPB BID [facility] PRN Reason: Protocol Last Admin: 07/11/17 09:37 Dose: 200 mls/hr Insulin Aspart (Novolog Vial Sliding Scale -) 1 vial SQ ACHS [facility] PRN Reason: Protocol Last Admin: 07/11/17 11:10 Dose: 2 units Insulin Detemir (Levemir Vial) 5 units SQ BIDI [facility] Last Admin: 07/11/17 06:25 Dose: 5 units Nystatin (Mycostatin Cream -) 1 applic TP BID [facility] Last Admin: 07/11/17 09:35 Dose: 1 applic Nystatin (Nystop Powder -) 1 applic TP DAILY [facility] Last Admin: 07/11/17 09:32 Dose: 1 applic Oxycodone HCl (Roxicodone -) 5 mg PO Q12H PRN Last Admin: 07/11/17 01:36 Dose: 5 mg Ranitidine HCl (Zantac -) 150 mg PO DAILY [facility] Last Admin: 07/11/17 09:32 Dose: 150 mg Rosuvastatin Calcium (Crestor -) 5 mg PO HS [facility] Last Admin: 07/10/17 21:35 Dose: 5 mg Silver Sulfadiazine (Silvadene -) 1 applic TP DAILY [facility] Last Admin: 07/11/17 09:40 Dose: 1 applic Torsemide (Demadex -) 20 mg PO DAILY [facility] Last Admin: 07/11/17 09:32 Dose: 20 mg - Objective Vital Signs: Vital Signs Temperature 98.2 F 07/11/17 14:16 Pulse Rate 73 07/11/17 14:16 Respiratory Rate 18 07/11/17 14:16 Blood Pressure 138/68 07/11/17 14:16 O2 Sat by Pulse Oximetry (%) 98 07/11/17 10:20 Constitutional: Yes: No Distress Cardiovascular: Yes: Regular Rate and Rhythm, S1, S2 Respiratory: Yes: CTA Bilaterally Gastrointestinal: Yes: Normal Bowel Sounds, Soft Extremities: Yes: Other (decreased erythema R LE No drainage) Labs: CBC, BMP 07/10/17 05:50 07/10/17 05:50 Assessment/Plan Recurrent bilateral LE cellulitis Chronic venous stasis dermatitis COPD PCN allergy Await wound c/s Continue ceftaroline Local wound care
[2017-07-11] MEDS: ROSUVASTATIN CA 5 MG TABLET (FP) PO SCH (21:00)
--- NOTE | 2017-07-11 21:57 | EKG ---
Test Reason : Blood Pressure : / mmHG Vent. Rate : 072 BPM Atrial Rate : 072 BPM P-R Int : 000 ms QRS Dur : 152 ms QT Int : 458 ms P-R-T Axes : 066 -53 101 degrees QTc Int : 501 ms BASELINE ARTIFACTS SINUS RHYTHM WITH MARKED FIRST DEGREE AV BLOCKNONCONDUCTED APCS ANDPROBABLE JUNCTIONAL ESCAPE BEATS LEFT AXIS DEVIATION LEFT BUNDLE BRANCH BLOCK ABNORMAL ECG WHEN COMPARED WITH ECG OF 14-JUN-2017 20:25, REPEAT EKG WITH LONG LEAD II FOR FURTHER EVALUATION OF RHYTHM Confirmed by ORIANA FAM MD ([id number]) on 07/11/2017 9:57:10 PM Referred By: Confirmed By:ORIANA FAM MD
[2017-07-12] MEDS: INSULIN SLIDING SCALE (NOVOLOG) 1 VIAL SQ SCH ×4 (06:23→22:17)
[2017-07-12] MEDS: INSULIN DETEMIR 100 UNITS/ML MDV SQ SCH ×2 (06:24→16:54)
--- NOTE | 2017-07-12 10:39 | PN ---
Progress Note, Physician Chief Complaint: in bed nad no new c/o - Current Medication List Current Medications: Active Medications Acetaminophen (Tylenol -) 325 mg PO BID PRN PRN Reason: PAIN Last Admin: 07/11/17 21:03 Dose: 325 mg Acetaminophen (Tylenol -) 325 mg PO Q12H PRN Aclidinium [place] (Tudorza -) 1 puff IH BID [facility] Last Admin: 07/11/17 21:01 Dose: 1 puff Albuterol Sulfate (Ventolin 0.083% Nebulizer Soln -) 1 amp NEB QID PRN PRN Reason: WHEEZING Last Admin: 07/11/17 10:39 Dose: 1 amp Aspirin (Asa -) 81 mg PO DAILY [facility] Last Admin: 07/11/17 09:33 Dose: 81 mg Budesonide/Formoterol Fumarate (Symbicort 160/4.5mcg -) 1 puff IH BID [facility] Last Admin: 07/11/17 21:01 Dose: 1 puff Cholecalciferol (Vitamin D3 -) 1,000 unit PO DAILY [facility] Last Admin: 07/11/17 09:33 Dose: 1,000 unit Citalopram Hydrobromide (Celexa -) 10 mg PO DAILY [facility] Last Admin: 07/11/17 09:32 Dose: 10 mg Clopidogrel Bisulfate (Plavix -) 75 mg PO DAILY [facility] Last Admin: 07/11/17 09:32 Dose: 75 mg Ceftaroline Fosamil 600 mg/ (Dextrose) 100 mls @ 200 mls/hr IVPB BID [facility] PRN Reason: Protocol Last Admin: 07/11/17 21:01 Dose: 200 mls/hr Insulin Aspart (Novolog Vial Sliding Scale -) 1 vial SQ ACHS [facility] PRN Reason: Protocol Last Admin: 07/12/17 06:23 Dose: Not Given Insulin Detemir (Levemir Vial) 5 units SQ BIDI [facility] Last Admin: 07/12/17 06:24 Dose: 5 units Nystatin (Mycostatin Cream -) 1 applic TP BID [facility] Last Admin: 07/11/17 21:00 Dose: Not Given Nystatin (Nystop Powder -) 1 applic TP DAILY [facility] Last Admin: 07/11/17 09:32 Dose: 1 applic Oxycodone HCl (Roxicodone -) 5 mg PO Q12H PRN Last Admin: 07/11/17 21:02 Dose: 5 mg Ranitidine HCl (Zantac -) 150 mg PO DAILY [facility] Last Admin: 07/11/17 09:32 Dose: 150 mg Rosuvastatin Calcium (Crestor -) 5 mg PO HS [facility] Last Admin: 07/11/17 21:00 Dose: 5 mg Silver Sulfadiazine (Silvadene -) 1 applic TP DAILY [facility] Last Admin: 07/11/17 09:40 Dose: 1 applic Torsemide (Demadex -) 20 mg PO DAILY [facility] Last Admin: 07/11/17 09:32 Dose: 20 mg - Objective Vital Signs: Vital Signs Temperature 97.7 F 07/12/17 09:12 Pulse Rate 71 07/12/17 09:12 Respiratory Rate 18 07/12/17 09:12 Blood Pressure 130/78 07/12/17 09:12 O2 Sat by Pulse Oximetry (%) 100 07/11/17 21:00 Constitutional: Yes: No Distress, Calm Eyes: Yes: Conjunctiva Clear HENT: Yes: Atraumatic Neck: Yes: Supple Cardiovascular: Yes: Regular Rate and Rhythm Respiratory: Yes: CTA Bilaterally Gastrointestinal: Yes: Soft Genitourinary: No: Hematuria Musculoskeletal: No: Joint Stiffness, Joint Swelling Extremities: No: Cold, Cool Edema: No Integumentary: Yes: Rash (less), Venous Stasis Changes Neurological: Yes: WNL, Alert, Oriented ...Motor Strength: WNL Psychiatric: Yes: WNL, Alert, Oriented. No: Agitated, Suicidal Ideation Labs: CBC, BMP 07/10/17 05:50 07/10/17 05:50 - ....Imaging Other: Report Reviewed Assessment/Plan 67-year-old male ASHD CHF COPD O2 dep, Bipap prn, venous insufficiency, legs cellulitis, DM, sent in by Dr. Cordon, patient's life specialist for evaluation of redness and swelling and drainage from legs cellulitis sites wound care per vascular sx ATB per ID pain med sprn falls DVT PFX f/u labs pain meds prn DM control Bipap prn d/w pt and called for DC planning; d/w CM and PT dw pt and staff
[2017-07-12] MEDS ORDERED: INSULIN (NOVOLOG) ASPART 100 UNITS/ML 10ML VIAL ONE (11:24)
[2017-07-12] MEDS ORDERED: PT OWN MED DRAWER 7, Y5N ONE ×2 (11:27→23:26)
--- NOTE | 2017-07-12 11:27 | PN ---
Progress Note, Physician History of Present Illness: Awake, alert C/O R foot pain No fever/ chills Wound c/s polymicrobial - Current Medication List Current Medications: Active Medications Acetaminophen (Tylenol -) 325 mg PO BID PRN PRN Reason: PAIN Last Admin: 07/11/17 21:03 Dose: 325 mg Acetaminophen (Tylenol -) 325 mg PO Q12H PRN Aclidinium [place] (Tudorza -) 1 puff IH BID [facility] Last Admin: 07/11/17 21:01 Dose: 1 puff Albuterol Sulfate (Ventolin 0.083% Nebulizer Soln -) 1 amp NEB QID PRN PRN Reason: WHEEZING Last Admin: 07/11/17 10:39 Dose: 1 amp Aspirin (Asa -) 81 mg PO DAILY [facility] Last Admin: 07/11/17 09:33 Dose: 81 mg Budesonide/Formoterol Fumarate (Symbicort 160/4.5mcg -) 1 puff IH BID [facility] Last Admin: 07/11/17 21:01 Dose: 1 puff Cholecalciferol (Vitamin D3 -) 1,000 unit PO DAILY [facility] Last Admin: 07/11/17 09:33 Dose: 1,000 unit Citalopram Hydrobromide (Celexa -) 10 mg PO DAILY [facility] Last Admin: 07/11/17 09:32 Dose: 10 mg Clopidogrel Bisulfate (Plavix -) 75 mg PO DAILY [facility] Last Admin: 07/11/17 09:32 Dose: 75 mg Ceftaroline Fosamil 600 mg/ (Dextrose) 100 mls @ 200 mls/hr IVPB BID [facility] PRN Reason: Protocol Last Admin: 07/11/17 21:01 Dose: 200 mls/hr Insulin Aspart (Novolog Vial Sliding Scale -) 1 vial SQ ACHS [facility] PRN Reason: Protocol Last Admin: 07/12/17 06:23 Dose: Not Given Insulin Detemir (Levemir Vial) 5 units SQ BIDI [facility] Last Admin: 07/12/17 06:24 Dose: 5 units Nystatin (Mycostatin Cream -) 1 applic TP BID [facility] Last Admin: 07/11/17 21:00 Dose: Not Given Nystatin (Nystop Powder -) 1 applic TP DAILY [facility] Last Admin: 07/11/17 09:32 Dose: 1 applic Oxycodone HCl (Roxicodone -) 5 mg PO Q12H PRN Last Admin: 07/11/17 21:02 Dose: 5 mg Ranitidine HCl (Zantac -) 150 mg PO DAILY [facility] Last Admin: 07/11/17 09:32 Dose: 150 mg Rosuvastatin Calcium (Crestor -) 5 mg PO HS [facility] Last Admin: 07/11/17 21:00 Dose: 5 mg Silver Sulfadiazine (Silvadene -) 1 applic TP DAILY [facility] Last Admin: 07/11/17 09:40 Dose: 1 applic Torsemide (Demadex -) 20 mg PO DAILY [facility] Last Admin: 07/11/17 09:32 Dose: 20 mg - Objective Vital Signs: Vital Signs Temperature 97.7 F 07/12/17 09:12 Pulse Rate 71 07/12/17 09:12 Respiratory Rate 18 07/12/17 09:12 Blood Pressure 130/78 07/12/17 09:12 O2 Sat by Pulse Oximetry (%) 100 07/11/17 21:00 Constitutional: Yes: No Distress Eyes: Yes: Conjunctiva Clear Cardiovascular: Yes: Regular Rate and Rhythm, S1, S2 Respiratory: Yes: CTA Bilaterally Gastrointestinal: Yes: Normal Bowel Sounds, Soft. No: Tenderness Extremities: Yes: Other (L LE stasis dermatitis no erythema R LE stasis dermatitis, denuded area R lateral foot no purulent drainage) Labs: CBC, BMP 07/10/17 05:50 07/10/17 05:50 Assessment/Plan Recurrent bilateral LE cellulitis improved Chronic venous stasis dermatitis COPD PCN allergy wound c/s polymicrobial Discontinue ceftaroline Start levaquin 500mg po qd x 7d Local wound care
[2017-07-12] MEDS: TORSEMIDE 20 MG TABLET (FP) PO SCH (11:38)
[2017-07-12] MEDS: CLOPIDOGREL BISULFATE 75 MG TABLET (FP) PO SCH (11:38)
[2017-07-12] MEDS: CITALOPRAM HYDROBROMIDE 10 MG TABLET (FP) PO SCH (11:38)
[2017-07-12] MEDS: CHOLECALCIFEROL (VITAMIN D3) 1,000 UNIT TABLET (FP) PO SCH (11:38)
[2017-07-12] MEDS: SILVER SULFADIAZINE 1% TOP CREAM 50 GM JAR TP SCH (11:39)
[2017-07-12] MEDS: RANITIDINE HCL 150 MG TABLET (FP) PO SCH (11:39)
[2017-07-12] MEDS: CEFTAROLINE FOSAMIL ACETATE 600 MG in DEXTROSE 5%-WATER - 100 ML IVPB SCH (11:40)
[2017-07-12] MEDS: ASPIRIN 81 MG CHEWABLE TABLETS PO SCH (11:40)
[2017-07-12] MEDS: ACLIDINIUM BROMIDE 400 MCG/INH AERO.POWD IH SCH ×2 (11:40→22:19)
[2017-07-12] MEDS: BUDESONIDE/FORMETEROL FUMARATE 160/4.5 mcg INHALER IH SCH ×2 (11:40→22:19)
[2017-07-12] MEDS: NYSTATIN 100,000 UNIT/GM TOPICAL CREAM 15 GM TUBE TP SCH ×2 (11:41→22:17)
[2017-07-12] MEDS: NYSTATIN POWDER 100,000 UNITS/GM - 15 GM TOPICAL POWDER TP SCH (11:42)
[2017-07-12] MEDS: oxyCODONE HCL 5 MG TABLET PO PRN (12:14)
[2017-07-12] MEDS: LEVOFLOXACIN 500 MG TABLET (FP) PO SCH (16:35)
[2017-07-12] MEDS: ROSUVASTATIN CA 5 MG TABLET (FP) PO SCH (22:17)
[2017-07-13] MEDS: LEVOFLOXACIN 500 MG TABLET (FP) PO SCH (06:57)
[2017-07-13] MEDS: INSULIN DETEMIR 100 UNITS/ML MDV SQ SCH (06:57)
[2017-07-13] MEDS: INSULIN SLIDING SCALE (NOVOLOG) 1 VIAL SQ SCH ×2 (06:58→11:54)
[2017-07-13] MEDS ORDERED: INSULIN DETEMIR 100 UNITS/ML MDV SQ ONE (07:08)
[2017-07-13] MEDS ORDERED: INSULIN (NOVOLOG) ASPART 100 UNITS/ML 10ML VIAL ONE ×2 (07:08→11:52)
[2017-07-13 08:48] VITALS: BP 121/61; TEMP 98.2
[2017-07-13] MEDS ORDERED: PT OWN MED DRAWER 7, Y5N ONE (09:55)
[2017-07-13] MEDS: ACLIDINIUM BROMIDE 400 MCG/INH AERO.POWD IH SCH (10:01)
[2017-07-13] MEDS: NYSTATIN POWDER 100,000 UNITS/GM - 15 GM TOPICAL POWDER TP SCH (10:01)
[2017-07-13] MEDS: CLOPIDOGREL BISULFATE 75 MG TABLET (FP) PO SCH (10:01)
[2017-07-13] MEDS: RANITIDINE HCL 150 MG TABLET (FP) PO SCH (10:01)
[2017-07-13] MEDS: ASPIRIN 81 MG CHEWABLE TABLETS PO SCH (10:01)
[2017-07-13] MEDS: CHOLECALCIFEROL (VITAMIN D3) 1,000 UNIT TABLET (FP) PO SCH (10:01)
[2017-07-13] MEDS: TORSEMIDE 20 MG TABLET (FP) PO SCH (10:01)
[2017-07-13] MEDS: CITALOPRAM HYDROBROMIDE 10 MG TABLET (FP) PO SCH (10:01)
[2017-07-13] MEDS: NYSTATIN 100,000 UNIT/GM TOPICAL CREAM 15 GM TUBE TP SCH (10:02)
[2017-07-13] MEDS: SILVER SULFADIAZINE 1% TOP CREAM 50 GM JAR TP SCH (10:03)
--- NOTE | 2017-07-13 10:27 | DS ---
Physical Examination Vital Signs: Vital Signs Temperature 98.2 F 07/13/17 08:48 Pulse Rate 75 07/13/17 08:48 Respiratory Rate 20 07/13/17 08:48 Blood Pressure 121/61 07/13/17 08:48 O2 Sat by Pulse Oximetry (%) 98 07/12/17 21:00 Findings/Remarks: in bed afebrile; po levaquin per ID, OK to DC to [place] [facility] for PT rehab Constitutional: Yes: No Distress, Calm Eyes: Yes: Conjunctiva Clear HENT: Yes: Atraumatic Neck: Yes: Supple Cardiovascular: Yes: Regular Rate and Rhythm Respiratory: Yes: CTA Bilaterally Gastrointestinal: Yes: Soft. No: Distention, Tenderness Renal/: No: CVA Tenderness - Left, CVA Tenderness - Right Musculoskeletal: No: Joint Stiffness, Joint Swelling Extremities: No: Cold, Cool Edema: No Integumentary: Yes: Venous Stasis Changes. No: Rash Neurological: Yes: WNL, Alert, Oriented ...Motor Strength: WNL Psychiatric: Yes: WNL, Alert, Oriented. No: Agitated, Suicidal Ideation Labs: CBC, BMP 07/10/17 05:50 07/10/17 05:50 Discharge Summary Reason For Visit: CELLULITIS OF R LOWER EXTREMITIES Current Active Problems Cellulitis of right leg (Acute) MRSA cellulitis (Acute) Procedures: Principal: admitted with legs cellulitis; IV ATB per ID Other Procedures: wound care per vascular sx; Hospital Course: improved with above; switch to po ATB per ID x 1 week; wound care per surgery; DC to SNF for rehab; f/u as advised d/w pt and PCP Condition: Improved - Instructions Diet, Activity, Other Instructions: f/u CBC CMP q1 week wound care in [place] rehab; falls PFX O2 NC continuous Bipap and nebs prn RTER if worse or recurrent cellulitis d/w pt and staff Referrals: Noemy Valle [Primary Care Provider] - Teofilo Cordon MD [Staff Physician] - Disposition: CARE HOME FACILITY - Home Medications Comprehensive Discharge Medication List: Ambulatory Orders Acetaminophen [Tylenol .Regular Strength -] 325 mg PO BID PRN 06/14/17 Albuterol 0.083% Nebulizer [place] [Ventolin 0.083% Nebulizer Soln -] 1 neb NEB QID 06/14/17 Albuterol 2.5/Ipratropium 0.5 [Duoneb -] 1 neb IH QID 06/14/17 Aspirin [ASA -] 81 mg PO DAILY 06/14/17 Budesonide/Formeterol Fumarate [SYMBICORT 160/4.5mcg -] 1 inh PO BID 06/14/17 Cholecalciferol (Vitamin D3) [Vitamin D3 -] 1,000 unit PO DAILY 06/14/17 Citalopram Hydrobromide [Celexa -] 10 mg PO DAILY 06/14/17 Clopidogrel Bisulfate [Plavix -] 75 mg PO DAILY 06/14/17 Cyanocobalamin (Vitamin B-12) [Vitamin B-12] 50 mcg PO DAILY 06/14/17 Insulin (Levemir) [Levemir Vial] 10 units SQ BID 06/14/17 Insulin Sliding Scale [Novolog Vial Sliding Scale -] 0 units SQ ACHS 06/14/17 Nystatin Cream [Mycostatin Cream -] 1 applic TP BID 06/14/17 Ranitidine [Zantac -] 150 mg PO DAILY 06/14/17 Rosuvastatin [Crestor -] 5 mg PO HS 06/14/17 Tiotropium [place] [Spiriva] 1 inh IH DAILY 06/14/17 Torsemide [Demadex -] 20 mg PO DAILY 06/14/17 Acetaminophen W/ Codeine #3 [Tylenol # 3 -] 1 - 2 tab PO Q6H PRN 06/15/17 Oxycodone HCl/Acetaminophen [Percocet 5-325 mg Tablet] 1 tab PO Q6H #8 tablet MDD 20 06/16/17
[2017-07-13 10:55] VITALS: PULSE 85
[2017-07-13] MEDS: BUDESONIDE/FORMETEROL FUMARATE 160/4.5 mcg INHALER IH SCH (11:55)
== END 2017-07-13 14:14 | DRG 603 ==
LOC: SUPCPDRO 12:51 → JER 12:51 → JERBED 15:33 → J7W 20:17
PROVIDERS: ADMIT Internal Medicine; ATTEND Internal Medicine
DX: L03.115 Cellulitis of right lower limb (principal); J96.10 Chronic respiratory failure, unspecified whether with hypoxia or hypercapnia; L97.819 Non-pressure chronic ulcer of other part of right lower leg with unspecified severity; L03.116 Cellulitis of left lower limb; Z99.81 Dependence on supplemental oxygen; Z22.322 Carrier or suspected carrier of Methicillin resistant Staphylococcus aureus; Z99.89 Dependence on other enabling machines and devices; J44.9 Chronic obstructive pulmonary disease, unspecified; Z86.73 Personal history of transient ischemic attack (TIA), and cerebral infarction without residual deficits; I25.10 Atherosclerotic heart disease of native coronary artery without angina pectoris; I10 Essential (primary) hypertension; E78.00 Pure hypercholesterolemia, unspecified; F17.210 Nicotine dependence, cigarettes, uncomplicated; I87.2 Venous insufficiency (chronic) (peripheral); E11.9 Type 2 diabetes mellitus without complications; Z79.4 Long term (current) use of insulin; Z51.89 Encounter for other specified aftercare
CPT/HCPCS: 36415; 71010-TC; 80053; 81003; 82803; 83605; 85025; 87040; 87070; 87086; 87186; 87205; 90688; 93005; 93010; 93971-TC; 94640; 94660; 97116-GP; 97161-GP; 99283-25; G0008; G0463-25

== ENCOUNTER 2018-07-10 13:05 | Inpatient (IN) | payer OTHER ==
[2018-07-10 13:29] VITALS: BMI 34.3
--- NOTE | 2018-07-10 14:01 | PDOC ---
History of Present Illness - General Stated Complaint: Wound Time Seen by Provider: 07/10/18 13:19 History Source: Patient, EMS Exam Limitations: No Limitations - History of Present Illness Initial Comments: 07/10/18 13:38 The patient is a 68M with a PMH of CVA, CAD, HTN, HLD, COPD (on 3L O2), CKD, DM , b/l LE cellulitis who presents to the ER because his visiting nurse noted his O2 saturation to be in the 70's. The patient denies any acute complaints. He denies CP, SOB, fever, chills, nausea, vomiting. Past History - Past Medical History Allergies/Adverse Reactions: Allergies Allergy/AdvReac Type Severity Reaction Status Date / Time amoxicillin trihydrate Allergy Unknown Verified 07/10/18 13:29 [From Augmentin] potassium clavulanate Allergy Unknown Verified 07/10/18 13:29 [From Augmentin] Home Medications: Ambulatory Orders Acetaminophen [Tylenol .Regular Strength -] 325 mg PO BID PRN 06/14/17 Albuterol 0.083% Nebulizer Kala [Ventolin 0.083% Nebulizer Soln -] 1 neb NEB QID 06/14/17 Albuterol 2.5/Ipratropium 0.5 [Duoneb -] 1 neb IH QID 06/14/17 Aspirin [ASA -] 81 mg PO DAILY 06/14/17 Budesonide/Formeterol Fumarate [SYMBICORT 160/4.5mcg -] 1 inh PO BID 06/14/17 Cholecalciferol (Vitamin D3) [Vitamin D3 -] 1,000 unit PO DAILY 06/14/17 Citalopram Hydrobromide [Celexa -] 10 mg PO DAILY 06/14/17 Clopidogrel Bisulfate [Plavix -] 75 mg PO DAILY 06/14/17 Cyanocobalamin (Vitamin B-12) [Vitamin B-12] 50 mcg PO DAILY 06/14/17 Nystatin Cream [Mycostatin Cream -] 1 applic TP BID 06/14/17 Tiotropium [place] [Spiriva] 1 inh IH DAILY 06/14/17 Torsemide [Demadex -] 20 mg PO DAILY 06/14/17 Insulin (Levemir) [Levemir Vial] 5 units SQ BIDI ml 07/13/17 Insulin Sliding Scale [Novolog Vial Sliding Scale -] 1 vial SQ ACHS units 07/13 Nystatin Powder [Nystop Powder -] 1 applic TP DAILY applic 07/13/17 Ammonium Lactate Lotion [Lac-Hydrin 12] 1 applic TP DAILY bottle 06/07/18 Clindamycin [Cleocin -] 300 mg PO TID 7 Days #21 capsule 06/07/18 Fluocinonide 0.05% Cream [Lidex 0.05% Cream -] 1 applic TP DAILY tube 06/07/18 Heparin - 5,000 unit SQ BID vial 06/07/18 Insulin Sliding Scale [Novolog Vial Sliding Scale -] 1 vial SQ ACHS units 06/07 Lactobacillus Acidophilus [Bacid -] 1 tab PO DAILY tab 06/07/18 Anemia: No Cardiac Disorders: Yes (CAD, Left Fem-Pop Bypass) CVA: Yes (no deficit 5 years ago.) COPD: Yes CHF: No Dementia: No Diabetes: Yes GI Disorders: Yes Disorders: No HTN: Yes Hypercholesterolemia: Yes Liver Disease: No Seizures: No Thyroid Disease: No - Surgical History Abdominal Surgery: No Appendectomy: No Cardiac Surgery: Yes (LEFT FEM-POP BYPASS) Cholecystectomy: No Lung Surgery: No Neurologic Surgery: No Orthopedic Surgery: No - Immunization History Immunization Up to Date: No - Suicide/Smoking/Psychosocial Hx Smoking Status: Yes Smoking History: Current every day smoker Have you smoked in the past 12 months: Yes Number of Cigarettes Smoked Daily: 20 If you are a former smoker, when did you quit?: 6 months Information on smoking cessation initiated: No 'Breaking Loose' booklet given: 06/01/18 Hx Alcohol Use: No Drug/Substance Use Hx: No Substance Use Type: None Hx Substance Use Treatment: No Review of Systems - Review of Systems Able to Perform ROS?: Yes Comments:: 07/10/18 14:07 GENERAL/CONSTITUTIONAL: No fever or chills. No weakness. HEAD, EYES, EARS, NOSE AND THROAT: No change in vision. No ear pain or discharge. No sore throat. CARDIOVASCULAR: No chest pain, palpitations, or lightheadedness. RESPIRATORY: No cough, wheezing, shortness of breath, or hemoptysis. GASTROINTESTINAL: No nausea, vomiting, diarrhea, constipation, or abdominal pain. GENITOURINARY: No dysuria, frequency, hematuria, or change in urination. MUSCULOSKELETAL: No joint or muscle swelling or pain. No neck or back pain. SKIN: Positive for b/l LE cellulitis. No rash or lesions. NEUROLOGIC: No headache, numbness, tingling, focal weakness, loss of consciousness, or change in strength/sensation. ENDOCRINE: No increased thirst. No abnormal weight change. HEMATOLOGIC/LYMPHATIC: No anemia, easy bleeding, or history of blood clots. ALLERGIC/IMMUNOLOGIC: No hives or skin allergy. Is the patient limited Ukrainian proficient: No *Physical Exam - Vital Signs Last Vital Signs Temp Pulse Resp BP Pulse Ox 97 F L 81 18 148/78 90 L 07/10/18 13:18 07/10/18 13:18 07/10/18 13:18 07/10/18 13:18 07/10/18 13:18 - Physical Exam Comments: 07/10/18 14:08 GENERAL: Well developed, well nourished. Awake and alert. No acute distress. HEENT: Normocephalic, atraumatic. Hearing grossly normal. Moist mucous membranes. PERRLA, EOMI. No conjunctival pallor. Sclera are non-icteric. NECK: Supple. Full ROM. No JVD. CARDIOVASCULAR: Irregular rate and rhythm. No murmurs, rubs, or gallops. PULMONARY: No evidence of respiratory distress. Crackles and decreased lung sounds appreciated in b/l lower lung lobes ABDOMINAL: Soft. Non-tender. Non-distended. No rebound or guarding. GENITOURINARY: No CVA tenderness bilaterally. MUSCULOSKELETAL: Normal range of motion at all joints. No bony deformities or tenderness. EXTREMITIES: Erythematous and edematous b/l LE up to knees with dry skin. SKIN: Warm and dry. Normal capillary refill. No rashes. No jaundice. NEUROLOGICAL: Alert, awake, appropriate. Cranial nerves 2-12 grossly intact. Normal speech. Gait is normal without ataxia. PSYCHIATRIC: Cooperative. Good eye contact. Appropriate mood and affect. Heart Score/ECG Review #1 ECG reviewed & interpreted by me at: 14:20 Compared to previous ECG there are: Changes noted 07/10/18 14:20 Sinus rhythm vent rate 64 Irregular R-r intervals 1st degree AV block unchanged PVC and APC's noted SD - QRS 154 QTc 484 No STD or MAXWELL No signs of acute ischemia. ED Treatment Course - LABORATORY CBC & Chemistry Diagram: 07/10/18 14:05 07/10/18 14:05 - RADIOLOGY Radiology Studies Ordered: Category Date Time Status CHEST X-RAY PORTABLE* [RAD] Stat Radiology 07/10/18 13:20 Ordered Medical Decision Making - Medical Decision Making 07/10/18 14:21 The patient is a 68M with an extensive PMH who presents to the ER after his visiting nurse found him to be hypoxic. He has been 88-90's during his stay here without O2. He is currently on 2L and comfortable. Afebrile. Will treat likely recurrent cellulitic legs with abx. EKG shows changes likely requiring further inpatient workup. Pending labs and imaging. 07/10/18 15:56 Labs show no WBC. THERESA present with Cr of 1.6. BNP 8600, up from 4000 in December. Will give 40 IV lasix. 07/10/18 15:58 I have endorsed the patient to Dr. Valle for admission. *DC/Admit/Observation/Transfer Diagnosis at time of Disposition: THERESA (acute kidney injury) Cellulitis of leg Qualifiers: Laterality: unspecified laterality Qualified Code(s): L03.119 - Cellulitis of unspecified part of limb - Discharge Dispostion Condition at time of disposition: Guarded Decision to Admit order: Yes - Referrals Referrals: Liyah Louise MD [Primary Care Provider] - - Patient Instructions - Post Discharge Activity
[2018-07-10] MEDS ORDERED: VANCOMYCIN 1,000 MG in DEXTROSE 5%-WATER - 250 ML IVPB ONE (14:08)
[2018-07-10] MEDS ORDERED: MEROPENEM 1 GM in DEXTROSE 5%-WATER 100 ML IVPB ONE (14:11)
[2018-07-10] MEDS ORDERED: VANCOMYCIN 1 GRAM (PRE-DOCKED) 1,000 MG/250 ML BAG IVPB ONE (14:24)
[2018-07-10 14:28] LABS: BASO % 1.9 % (0-2.0); EOS % 11.2 % (0-4.5); LYMPH % 10.6 % (8-40); MCH 22.7 pg (25.7-33.7); MCHC 30.5 g/dl (32.0-35.9); MEAN CELL VOLUME 74.4 fl (80-96); MEAN PLT VOLUME 7.8 fl (7.5-11.1); MONO % 6.8 % (3.8-10.2); NEUT % 69.5 % (42.8-82.8); PLATELET COUNT 214 K/MM3 (134-434); RBC 4.84 M/mm3 (4.00-5.60); RDW 21.5 % (11.9-15.9); WHITE BLOOD COUNT 8.5 K/mm3 (4.0-10.0)
[2018-07-10 15:07] LABS: ALBUMIN 2.8 g/dl (3.4-5.0); ANION GAP 8 MMOL/L (8-16); BILIRUBIN,TOTAL 0.5 mg/dL (0.2-1); BLOOD UREA NITROGEN 36 mg/dL (7-18); CALCIUM 8.6 mg/dL (8.5-10.1); CHLORIDE 96 mmol/L (98-107); CO2 37 mmol/L (21-32); CREATININE 1.6 mg/dL (0.55-1.3); GLUCOSE,RANDOM 92 mg/dL (74-106); POTASSIUM 5.3 mmol/L (3.5-5.1); SGOT/AST 12 U/L (15-37); SGPT/ALT 12 U/L (13-61); SODIUM 141 mmol/L (136-145)
[2018-07-10 15:09] LABS: ALK PHOS 66 U/L (45-117); N-TERMINAL BNP 8674.28 pg/ml (5-125)
--- NOTE | 2018-07-10 15:11 | PDOC ---
Attending Attestation - Resident Resident Name: Abner Castillo - ED Attending Attestation I have performed the following: I have examined & evaluated the patient, The case was reviewed & discussed with the resident, I agree w/resident's findings & plan - HPI HPI: 07/10/18 15:08 68-year-old male with history of COPD on home O2 3 L at baseline, chronic venous stasis requiring wound clinic for chronic ulcers sent by [facility] for evaluation of low O2 levels on routine visit and worsening right leg swelling and inflammation. Patient denies any cardiopulmonary complaints whatsoever, he does state his right lower extremity has become more erythematous with discoloration over the last week. - Physicial Exam PE: 07/10/18 15:10 O2 sat 90% on 3 L, which is his baseline. Afebrile. Course breath sounds bilaterally, no focally decreased breath sounds or increased work of breathing Chronic bilateral lower extremity edema, extensive warm erythema with the spot vomiting lesions to the right leg, worse over the dorsal aspect of the right foot. Otherwise neurovascularly intact distally. - Medical Decision Making 07/10/18 15:10 68-year-old male with history of COPD and chronic venous stasis complicated by wounds presents with likely superimposed right lower extremity cellulitis, he appears to be at his baseline respiratory status. Labs, EKG, chest x-ray IV antibiotics Is followed by Dr. Cordon in the wound clinic, will consult Admit
[2018-07-10] MEDS ORDERED: FUROSEMIDE 40 MG/4 ML INJECTABLE VIAL IVPUSH ONE (15:53)
--- NOTE | 2018-07-10 16:14 | EKG ---
Test Reason : Blood Pressure : / mmHG Vent. Rate : 064 BPM Atrial Rate : 068 BPM P-R Int : 000 ms QRS Dur : 154 ms QT Int : 470 ms P-R-T Axes : 061 -09 088 degrees QTc Int : 484 ms SINUS RHYTHM WITH A-V DISSOCIATION AND WIDE QRS RHYTHM WITH OCCASIONAL PREMATURE VENTRICULAR COMPLEXES LEFT BUNDLE BRANCH BLOCK ABNORMAL ECG WHEN COMPARED WITH ECG OF 01-JUN-2018 11:58, WIDE QRS RHYTHM HAS REPLACED SINUS RHYTHM Confirmed by Conor Fontenot ([id number]) on 07/10/2018 4:13:48 PM Referred By: Confirmed By:Conor Fontenot
[2018-07-10] MEDS ORDERED: ALBUTEROL SO4 2.5/IPRATROPIUM 0.5 INH SOL 3 ML VIAL.NEB. NEB PRN (16:42)
[2018-07-10] MEDS ORDERED: ACETAMINOPHEN 325 MG TABLET (FP) PO PRN (16:42)
[2018-07-10] MEDS ORDERED: FUROSEMIDE 40 MG/4 ML INJECTABLE VIAL ONE (16:44)
--- NOTE | 2018-07-10 16:49 | HP ---
Admitting History and Physical - Primary Care Physician PCP: Noemy Valle S - Admission Chief Complaint: SOB low o2 at home History of Present Illness: The patient is a 68M with a PMH of CVA, CAD, HTN, HLD, COPD (on 3L O2), CKD, DM , b/l LE cellulitis who presents to the ER because his visiting nurse noted his O2 saturation to be in the 70's. The patient denies any acute complaints. He denies CP, SOB, fever, chills, nausea, vomiting. chronic legs cellulitis and inguinal rash; received iv antibiotics and topical antifungal History Source: Patient Limitations to Obtaining History: No Limitations - Past Medical History [employer]: Yes: CVA (no deficit, 5 years ago) Cardiovascular: Yes: CAD, HTN, Hyperlipdemia Pulmonary: Yes: COPD (on CPAP at night), O2 Dependent, Other (Cronic respiratory failure, on BIPAP at home) Renal/: Yes: Renal Failure (chronic) Infectious Disease: Yes: Other (Bilat. 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 History of Recent Travel: No Home Medications - Allergies Allergies/Adverse Reactions: Allergies Allergy/AdvReac Type Severity Reaction Status Date / Time amoxicillin trihydrate Allergy Unknown Verified 07/10/18 13:29 [From Augmentin] potassium clavulanate Allergy Unknown Verified 07/10/18 13:29 [From Augmentin] - Home Medications Home Medications: Ambulatory Orders Acetaminophen [Tylenol .Regular Strength -] 325 mg PO BID PRN 06/14/17 Albuterol 0.083% Nebulizer Kala [Ventolin 0.083% Nebulizer Soln -] 1 neb NEB QID 06/14/17 Albuterol 2.5/Ipratropium 0.5 [Duoneb -] 1 neb IH QID 06/14/17 Aspirin [ASA -] 81 mg PO DAILY 06/14/17 Budesonide/Formeterol Fumarate [SYMBICORT 160/4.5mcg -] 1 inh PO BID 06/14/17 Cholecalciferol (Vitamin D3) [Vitamin D3 -] 1,000 unit PO DAILY 06/14/17 Citalopram Hydrobromide [Celexa -] 10 mg PO DAILY 06/14/17 Clopidogrel Bisulfate [Plavix -] 75 mg PO DAILY 06/14/17 Cyanocobalamin (Vitamin B-12) [Vitamin B-12] 50 mcg PO DAILY 06/14/17 Nystatin Cream [Mycostatin Cream -] 1 applic TP BID 06/14/17 Tiotropium [place] [Spiriva] 1 inh IH DAILY 06/14/17 Torsemide [Demadex -] 20 mg PO DAILY 06/14/17 Insulin (Levemir) [Levemir Vial] 5 units SQ BIDI ml 07/13/17 Insulin Sliding Scale [Novolog Vial Sliding Scale -] 1 vial SQ ACHS units 07/13 Nystatin Powder [Nystop Powder -] 1 applic TP DAILY applic 07/13/17 Ammonium Lactate Lotion [Lac-Hydrin 12] 1 applic TP DAILY bottle 06/07/18 Clindamycin [Cleocin -] 300 mg PO TID 7 Days #21 capsule 06/07/18 Fluocinonide 0.05% Cream [Lidex 0.05% Cream -] 1 applic TP DAILY tube 06/07/18 Heparin - 5,000 unit SQ BID vial 06/07/18 Insulin Sliding Scale [Novolog Vial Sliding Scale -] 1 vial SQ ACHS units 06/07 Lactobacillus Acidophilus [Bacid -] 1 tab PO DAILY tab 06/07/18 Family Disease History - Family Disease History Family Disease History: Diabetes: Daughter Review of Systems - Review of Systems Constitutional: denies: Chills, Fever Eyes: denies: Blind Spots, Blurred Vision, Double Vision HENT: denies: Difficult Swallowing, Ear Pain, Epistaxis Cardiovascular: reports: Shortness of Breath. denies: Chest Pain, Palpitations Respiratory: reports: SOB, SOB on Exertion. denies: Cough, Hemoptysis, Orthopnea, Wheezing Gastrointestinal: denies: Abdominal Pain, Bloating, Constipation, Diarrhea, Vomiting Genitourinary: denies: Burning, Dysuria, Flank Pain Musculoskeletal: denies: Back Pain Integumentary: reports: Rash, Wound (legs chronic) Neurological: denies: Change in LOC, Change in Speech, Confusion, Dizziness, Headache, Seizure, Syncope, Tremors Endocrine: reports: Unexplained Weight Loss Hematology/Lymphatic: denies: Easily Bruised, Excessive Bleeding Psychiatric: denies: Anxiety, Depression Physical Examination Vital Signs: Vital Signs Temperature 97 F L 07/10/18 13:18 Pulse Rate 81 07/10/18 13:18 Respiratory Rate 18 07/10/18 13:18 Blood Pressure 148/78 07/10/18 13:18 O2 Sat by Pulse Oximetry (%) 90 L 07/10/18 13:18 Constitutional: Yes: No Distress, Calm Eyes: Yes: Conjunctiva Clear HENT: Yes: Atraumatic Neck: Yes: Supple Cardiovascular: Yes: Regular Rate and Rhythm Respiratory: Yes: Diminished Gastrointestinal: Yes: Soft. No: Distention Renal/: No: Hematuria Breast(s): Yes: Skin Changes Extremities: No: Calf Tenderness, Cold, Cool Edema: Yes (legs chronic) Integumentary: Yes: Rash, Skin Tear, Venous Stasis Changes Wound/Incision: Yes: Reddened, Excoriated (legs and groin R) Neurological: Yes: WNL, Alert, Oriented ...Motor Strength: WNL Psychiatric: Yes: WNL, Alert, Oriented. No: Agitated, Suicidal Ideation Labs: CBC, BMP 07/10/18 14:05 07/10/18 14:05 Imaging - Results Chest X-ray: Report Reviewed Other: Report Reviewed Assessment/Plan The patient is a 68M with a PMH of CVA, CAD, HTN, HLD, COPD (on 3L O2), CKD, DM , b/l LE cellulitis who presents to the ER because of hypoxemia with an O2 saturation to be in the 70's at home. The patient denies any acute complaints. He denies CP, SOB, fever, chills, nausea, vomiting. legs c/w cellulitis and inguinal rash with excoriations admit, cardiology and pulmonary eval Iv antibiotics ID eval will ask to see him for h/o groin pain; had scrotal US WNL in [place] recently falls DVT decubs pfx wound care d/w pt and staff; will call pt's
[2018-07-10] MEDS ORDERED: ALBUTEROL SO4 2.5/IPRATROPIUM 0.5 INH SOL 3 ML VIAL.NEB. NEB ONE (17:13)
[2018-07-10 17:27] LABS: ANISOCYTOSIS 2+; PLATELET ESTIMATE ADEQUATE
[2018-07-10] MEDS ORDERED: HEMOQUE TEST 1 EACH EACH ONE (20:22)
[2018-07-10] MEDS: HEPARIN NA (PORCINE) 5,000 UNITS/ML 1ML VIAL SQ SCH (22:56)
[2018-07-10] MEDS: BUDESONIDE/FORMETEROL FUMARATE 160/4.5 mcg INHALER IH SCH (22:57)
[2018-07-10] MEDS: INSULIN SLIDING SCALE (NOVOLOG) 1 VIAL SQ SCH (22:57)
[2018-07-10] MEDS: NYSTATIN 100,000 UNIT/GM TOPICAL CREAM 15 GM TUBE TP SCH (22:58)
[2018-07-11] MEDS ORDERED: INSULIN (LEVEMIR) 100 UNITS/ML UNITS SQ ONE (06:48)
--- NOTE | 2018-07-11 06:48 | PN ---
Progress Note, Physician Chief Complaint: evnets and consults noted; pt still in ER awaiting telemetry bed not hypoxemic, feels better - Current Medication List Current Medications: Active Medications Acetaminophen (Tylenol -) 325 mg PO Q12H PRN PRN Reason: PAIN LEVEL 1 - 3 Albuterol Sulfate (Ventolin 0.083% Nebulizer Soln -) 1 amp NEB Q6H PRN PRN Reason: WHEEZING Albuterol/Ipratropium (Duoneb -) 1 amp NEB Q6H PRN PRN Reason: WHEEZING Aspirin (Asa -) 81 mg PO DAILY [facility] Budesonide/Formoterol Fumarate (Symbicort 160/4.5mcg -) 1 puff IH BID [facility] Last Admin: 07/10/18 22:57 Dose: Not Given Cholecalciferol (Vitamin D3 -) 1,000 unit PO DAILY [facility] Citalopram Hydrobromide (Celexa -) 10 mg PO DAILY [facility] Clopidogrel Bisulfate (Plavix -) 75 mg PO DAILY [facility] Cyanocobalamin (Vitamin B12 -) 50 mcg PO DAILY [facility] Fluocinonide (Lidex 0.05% Cream -) 1 applic TP DAILY [facility] Heparin Sodium (Porcine) (Heparin -) 5,000 unit SQ BID [facility] Last Admin: 07/10/18 22:56 Dose: Not Given Insulin Aspart (Novolog Vial Sliding Scale -) 1 vial SQ [facility]; Protocol Last Admin: 07/10/18 22:57 Dose: 2 units Insulin Detemir (Levemir Vial) 5 units SQ BIDI [facility] Lactic Acid (Lac-Hydrin 12) 1 applic TP DAILY [facility] Lactobacillus Acidophilus (Bacid -) 1 tab PO DAILY [facility] Nystatin (Mycostatin Cream -) 1 applic TP BID [facility] Last Admin: 07/10/18 22:58 Dose: Not Given Nystatin (Nystop Powder -) 1 applic TP DAILY [facility] Tiotropium [place] (Spiriva Respimat) 2 puff IH DAILY [facility] Torsemide (Demadex -) 20 mg PO DAILY [facility] - Objective Vital Signs: Vital Signs Temperature 98.2 F 07/10/18 23:30 Pulse Rate 80 07/10/18 23:30 Respiratory Rate 18 07/10/18 23:30 Blood Pressure 140/78 07/10/18 23:30 O2 Sat by Pulse Oximetry (%) 100 07/10/18 23:30 Constitutional: Yes: No Distress, Calm Eyes: Yes: Conjunctiva Clear HENT: Yes: Atraumatic Neck: Yes: Supple Cardiovascular: Yes: Regular Rate and Rhythm Respiratory: Yes: Diminished Gastrointestinal: Yes: Soft, Distention (2) Genitourinary: No: CVA Tenderness - Left, CVA Tenderness - Right Extremities: No: Cold, Cool Integumentary: Yes: Rash (legs and groin), Venous Stasis Changes Neurological: Yes: WNL, Alert, Oriented ...Motor Strength: WNL Psychiatric: Yes: WNL, Alert, Oriented. No: Agitated, Suicidal Ideation Labs: CBC, BMP 07/10/18 14:05 07/10/18 14:05 - ....Imaging Other: Report Reviewed Assessment/Plan The patient is a 68M with a PMH of CVA, CAD, HTN, HLD, COPD (on 3L O2), CKD, DM , b/l LE cellulitis who presents to the ER because of hypoxemia with an O2 saturation to be in the 70's at home. The patient denies any acute complaints. He denies CP, SOB, fever, chills, nausea, vomiting. legs c/w cellulitis and inguinal rash with excoriations admit to telemetry, cardiology and pulmonary eval Iv antibiotics ID eval will ask to see him for h/o groin pain; had scrotal US WNL in [facility] recently falls DVT decubs pfx wound care d/w pt and staff; will call pt's
[2018-07-11] MEDS: INSULIN SLIDING SCALE (NOVOLOG) 1 VIAL SQ SCH ×4 (07:02→21:46)
[2018-07-11] MEDS: INSULIN (LEVEMIR) 100 UNITS/ML UNITS SQ SCH ×2 (07:03→20:59)
[2018-07-11] MEDS: HEPARIN NA (PORCINE) 5,000 UNITS/ML 1ML VIAL SQ SCH ×2 (09:38→21:46)
[2018-07-11] MEDS: ASPIRIN 81 MG CHEWABLE TABLETS PO SCH (09:39)
[2018-07-11] MEDS: CLOPIDOGREL BISULFATE 75 MG TABLET (FP) PO SCH (09:39)
[2018-07-11] MEDS: CYANOCOBALAMIN (VITAMIN B-12) 100 MCG TABLET PO SCH (09:39)
[2018-07-11] MEDS: CHOLECALCIFEROL (VITAMIN D3) 1,000 UNIT TABLET (FP) PO SCH (09:39)
[2018-07-11] MEDS: LACTOBACILLUS ACIDOPHILUS 1 TABLET PO SCH (09:39)
[2018-07-11] MEDS: CITALOPRAM HYDROBROMIDE 10 MG TABLET (FP) PO SCH (09:39)
[2018-07-11] MEDS: AMMONIUM LACTATE 12% LOTION 225 GM BOTTLE TP SCH (09:40)
[2018-07-11] MEDS: NYSTATIN 100,000 UNIT/GM TOPICAL CREAM 15 GM TUBE TP SCH ×2 (09:40→21:46)
[2018-07-11] MEDS: BUDESONIDE/FORMETEROL FUMARATE 160/4.5 mcg INHALER IH SCH ×2 (09:40→21:46)
[2018-07-11] MEDS: FLUOCINONIDE 0.05% CREAM (15 GM TUBE) TP SCH (09:40)
[2018-07-11] MEDS: NYSTATIN POWDER 100,000 UNITS/GM - 15 GM TOPICAL POWDER TP SCH (09:41)
[2018-07-11 09:44] LABS: BASO % 0.7 % (0-2.0); EOS % 8.5 % (0-4.5); HEMATOCRIT 35.9 % (35.4-49); HEMOGLOBIN 11.1 GM/dL (11.7-16.9); LYMPH % 4.4 % (8-40); MCH 23.2 pg (25.7-33.7); MEAN CELL VOLUME 74.9 fl (80-96); MEAN PLT VOLUME 7.9 fl (7.5-11.1); MONO % 7.5 % (3.8-10.2); NEUT % 78.9 % (42.8-82.8); PLATELET COUNT 193 K/MM3 (134-434); RBC 4.79 M/mm3 (4.00-5.60); RDW 21.1 % (11.9-15.9); WHITE BLOOD COUNT 7.3 K/mm3 (4.0-10.0)
[2018-07-11] MEDS ORDERED: TORSEMIDE 20 MG TABLET (FP) PO SCH (10:00)
[2018-07-11] MEDS ORDERED: TIOTROPIUM BROMIDE 2.5 MCG (SPIRIVA) RESPIMAT INHALER IH SCH (10:00)
--- NOTE | 2018-07-11 10:09 | CON.CARD ---
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 Visiting nurse found O2 sat to be in 70s, in ER 88-90s. He is on chronic O2 at home. He was given abx for lower ext cellulitis in ED. Labs significant for Cr 1.6, BNP 8600 (prior 4000 12/2017) , received lasix 40 mg IV. EKG shows LBBB, wenckebach. Patient denies chest pain, dyspnea, orthopnea, PND. Wears O2 at home has been stable. complains of LE edema. Prior patient of Dr. Blanton. 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 History of Recent Travel: No Home Medications - Allergies Allergies/Adverse Reactions: Allergies Allergy/AdvReac Type Severity Reaction Status Date / Time amoxicillin trihydrate Allergy Unknown Verified 07/10/18 13:29 [From Augmentin] potassium clavulanate Allergy Unknown Verified 07/10/18 13:29 [From Augmentin] - Home Medications Home Medications: Ambulatory Orders Acetaminophen [Tylenol .Regular Strength -] 325 mg PO BID PRN 06/14/17 Albuterol 0.083% Nebulizer Kala [Ventolin 0.083% Nebulizer Soln -] 1 neb NEB QID 06/14/17 Albuterol 2.5/Ipratropium 0.5 [Duoneb -] 1 neb IH QID 06/14/17 Aspirin [ASA -] 81 mg PO DAILY 06/14/17 Budesonide/Formeterol Fumarate [SYMBICORT 160/4.5mcg -] 1 inh PO BID 06/14/17 Cholecalciferol (Vitamin D3) [Vitamin D3 -] 1,000 unit PO DAILY 06/14/17 Citalopram Hydrobromide [Celexa -] 10 mg PO DAILY 06/14/17 Clopidogrel Bisulfate [Plavix -] 75 mg PO DAILY 06/14/17 Cyanocobalamin (Vitamin B-12) [Vitamin B-12] 50 mcg PO DAILY 06/14/17 Nystatin Cream [Mycostatin Cream -] 1 applic TP BID 06/14/17 Tiotropium [place] [Spiriva] 1 inh IH DAILY 06/14/17 Torsemide [Demadex -] 20 mg PO DAILY 06/14/17 Insulin (Levemir) [Levemir Vial] 5 units SQ BIDI ml 07/13/17 Insulin Sliding Scale [Novolog Vial Sliding Scale -] 1 vial SQ ACHS units 07/13 Nystatin Powder [Nystop Powder -] 1 applic TP DAILY applic 07/13/17 Ammonium Lactate Lotion [Lac-Hydrin 12] 1 applic TP DAILY bottle 06/07/18 Clindamycin [Cleocin -] 300 mg PO TID 7 Days #21 capsule 06/07/18 Fluocinonide 0.05% Cream [Lidex 0.05% Cream -] 1 applic TP DAILY tube 06/07/18 Heparin - 5,000 unit SQ BID vial 06/07/18 Insulin Sliding Scale [Novolog Vial Sliding Scale -] 1 vial SQ ACHS units 06/07 Lactobacillus Acidophilus [Bacid -] 1 tab PO DAILY tab 06/07/18 Family Disease History - Family Disease History Family History: Unremarkable Family Disease History: Diabetes: Daughter Review of Systems - Review of Systems Constitutional: reports: No Symptoms Eyes: reports: No Symptoms HENT: reports: No Symptoms Neck: reports: No Symptoms Cardiovascular: reports: Edema Respiratory: reports: No Symptoms Gastrointestinal: reports: No Symptoms Genitourinary: reports: No Symptoms Musculoskeletal: reports: Extremity Pain Integumentary: reports: No Symptoms Neurological: reports: No Symptoms Endocrine: reports: No Symptoms Hematology/Lymphatic: reports: No Symptoms Psychiatric: reports: No Symptoms Vital Signs: Vital Signs Temperature 97.3 F L 07/11/18 09:05 Pulse Rate 84 07/11/18 09:05 Respiratory Rate 18 07/11/18 09:05 Blood Pressure 117/74 07/11/18 09:05 O2 Sat by Pulse Oximetry (%) 98 07/11/18 09:05 Constitutional: Yes: No Distress, Calm Eyes: Yes: Conjunctiva Clear, EOM Intact HENT: Yes: Atraumatic, Normocephalic Neck: Yes: Supple, Trachea Midline Respiratory: Yes: On Nasal O2, Wheezes, Other (prolonged expiratory phase with scattered wheezes with expiration) Gastrointestinal: Yes: Normal Bowel Sounds, Soft Renal/: Yes: WNL Cardiovascular: Yes: Regular Rate and Rhythm JVD: No Carotid Bruit: No Heart Sounds: Yes: S1, S2 Musculoskeletal: Yes: WNL Extremities: Yes: Erythema, Other (erythema bilateral feet and ankles with weeping from wounds on R foot) Edema: Yes Edema: LLE: 2+, RLE: 2+ Peripheral Pulses: 1+ Left Doralis Pedis, 1+ Right Dorsalis Pedis Integumentary: Yes: WNL Neurological: Yes: Alert, Oriented Psychiatric: Yes: Alert, Oriented - Other Data Labs, Other Data: CBC, BMP 07/11/18 09:00 Troponin, BNP 07/10/18 14:05 Troponin I < 0.02 B-Natriuretic Peptide 8674.28 H Troponin, BNP 07/10/18 14:05 Troponin I < 0.02 B-Natriuretic Peptide 8674.28 H Assessment/Plan echo 12/2016: nl lv/rv, mild lae, mild mr, mild-mod tr, possible mild as, mild phtn exercise mibi 01/02: no ischemia at 80% mphr cxr: no acute process EKG: sinus, LBBB, mobitz 1 (similar to prior EKG from 2016; EKG from 05/2018 sinus, 1st deg AVB, LBBB) tele: sr, mobitz I, no sig kathy/pause a/p: 68 m hx htn, hld, dm, obesity, tia 2003, lbbb, dchf/venous insuff, recurrent le cellulitis, mobitz 1 avb and first degree avb, pad s/p left fem- pop bypass, smoking, copd, here with le cellulitis, hypoxia Abnormal EKG, mobitz 1 - chronic finding, has had prior event monitors in clinic showing mobitz 1 without pauses - noted on prior EKGs here - observe, avoid AV arsh blocking agents Hypoxia, COPD - denies dyspnea, sats improved - has h/o diastolic CHF however on exam appears euvolemic - exam more consistent with COPD exacerbation, pulm following, Dr. Arceo chronic venous insuff/LE edema, recurrent cellulitis: - vasc surgery/wound team consulted PAD: -prior h/o left fem-pop bypass, cont dapt, statin chronic diastolic CHF -echoes have been unremarkable or very TDS in past, most recent 12/2016 was unremarkable - would continue home torsemide htn: -stable, controlled hld: -cont statin h/o TIA (2003): -on ASA, statin for sec prevention, cont same
[2018-07-11 10:24] LABS: ALBUMIN 2.5 g/dl (3.4-5.0); ANION GAP 2 MMOL/L (8-16); BLOOD UREA NITROGEN 32 mg/dL (7-18); CALCIUM 8.2 mg/dL (8.5-10.1); CHLORIDE 98 mmol/L (98-107); CO2 40 mmol/L (21-32); GLUCOSE,RANDOM 99 mg/dL (74-106); POTASSIUM 4.8 mmol/L (3.5-5.1); SODIUM 140 mmol/L (136-145)
[2018-07-11 12:13] LABS: ALK PHOS 67 U/L (45-117); BILIRUBIN,TOTAL 0.5 mg/dL (0.2-1); CREATININE 1.4 mg/dL (0.55-1.3); SGOT/AST 16 U/L (15-37); SGPT/ALT 12 U/L (13-61); TOT PROT 6.7 g/dl (6.4-8.2)
--- NOTE | 2018-07-11 12:17 | CON.PULM ---
Consult Consult Specialty:: PULMONARY Referred by:: Dr. Valle Reason for Consultation:: hypoxia - History of Present Illness Chief Complaint: hypoxia History of Present Illness: 68yo male with h/o HTN, DM, hyperlipidemia, CKD, h/o CVA, LV diastolic dysfunction, PAD, COPD, chronic hypoxic respirator failure who was admitted after VNS found him hypoxic to 70s. He denies shortness of breath but with a productive cough with green sputum and wheezing. No chest pain or palpitations. Being treated with antibiotics for leg cellulitis. He still smokes 1/2 PPD. Lives with . 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 History of Recent Travel: No Home Medications - Allergies Allergies/Adverse Reactions: Allergies Allergy/AdvReac Type Severity Reaction Status Date / Time amoxicillin trihydrate Allergy Unknown Verified 07/10/18 13:29 [From Augmentin] potassium clavulanate Allergy Unknown Verified 07/10/18 13:29 [From Augmentin] - Home Medications Home Medications: Ambulatory Orders Acetaminophen [Tylenol .Regular Strength -] 325 mg PO BID PRN 06/14/17 Albuterol 0.083% Nebulizer Kala [Ventolin 0.083% Nebulizer Soln -] 1 neb NEB QID 06/14/17 Albuterol 2.5/Ipratropium 0.5 [Duoneb -] 1 neb IH QID 06/14/17 Aspirin [ASA -] 81 mg PO DAILY 06/14/17 Budesonide/Formeterol Fumarate [SYMBICORT 160/4.5mcg -] 1 inh PO BID 06/14/17 Cholecalciferol (Vitamin D3) [Vitamin D3 -] 1,000 unit PO DAILY 06/14/17 Citalopram Hydrobromide [Celexa -] 10 mg PO DAILY 06/14/17 Clopidogrel Bisulfate [Plavix -] 75 mg PO DAILY 06/14/17 Cyanocobalamin (Vitamin B-12) [Vitamin B-12] 50 mcg PO DAILY 06/14/17 Nystatin Cream [Mycostatin Cream -] 1 applic TP BID 06/14/17 Tiotropium [place] [Spiriva] 1 inh IH DAILY 06/14/17 Torsemide [Demadex -] 20 mg PO DAILY 06/14/17 Insulin (Levemir) [Levemir Vial] 5 units SQ BIDI ml 07/13/17 Insulin Sliding Scale [Novolog Vial Sliding Scale -] 1 vial SQ ACHS units 07/13 Nystatin Powder [Nystop Powder -] 1 applic TP DAILY applic 07/13/17 Ammonium Lactate Lotion [Lac-Hydrin 12] 1 applic TP DAILY bottle 06/07/18 Clindamycin [Cleocin -] 300 mg PO TID 7 Days #21 capsule 06/07/18 Fluocinonide 0.05% Cream [Lidex 0.05% Cream -] 1 applic TP DAILY tube 06/07/18 Heparin - 5,000 unit SQ BID vial 06/07/18 Insulin Sliding Scale [Novolog Vial Sliding Scale -] 1 vial SQ ACHS units 06/07 Lactobacillus Acidophilus [Bacid -] 1 tab PO DAILY tab 06/07/18 Family Disease History - Family Disease History Family Disease History: Diabetes: Daughter Review of Systems - Review of Systems Constitutional: reports: Weakness. denies: Chills, Fever Eyes: denies: Recent Change in Vision HENT: denies: Nasal Congestion, Throat Pain Neck: denies: Stiffness, Tenderness Cardiovascular: denies: Chest Pain, Shortness of Breath Respiratory: reports: Cough, Wheezing. denies: Hemoptysis, SOB Gastrointestinal: denies: Abdominal Pain, Nausea, Vomiting Genitourinary: denies: Dysuria, Hematuria Neurological: denies: Dizziness, Headache Physical Exam Vital Sings: Vital Signs Temperature 97.3 F L 07/11/18 09:05 Pulse Rate 84 07/11/18 09:05 Respiratory Rate 18 07/11/18 09:05 Blood Pressure 117/74 07/11/18 09:05 O2 Sat by Pulse Oximetry (%) 98 07/11/18 09:05 Constitutional: Yes: Calm Eyes: Yes: Conjunctiva Clear, EOM Intact HENT: Yes: Atraumatic, Normocephalic Neck: Yes: Supple, Trachea Midline Cardiovascular: Yes: Regular Rate and Rhythm Respiratory: Yes: Rhonchi, Wheezes ...Clubbing: No Gastrointestinal: Yes: Normal Bowel Sounds, Soft. No: Tenderness Extremities: Yes: Erythema Edema: Yes Neurological: Yes: Alert, Oriented Labs: CBC, BMP 07/11/18 09:00 Imaging - Results Chest X-ray: Report Reviewed, Image Reviewed (no infiltrates) Assessment/Plan Acute on Chronic Hypoxic and Hypercapneic Respiratory Failure Acute COPD Exacerbation Cellulitis LV Diastolic Dysfunction HTN DM Hyperlipidemia PAD h/o CVA Smoker - continue antibiotics - IV medrol - inhaled bronchodilators standing and PRN - check ABG - O2 to keep SpO2 >85% - BiPAP as needed - smoking cessation - DVT prophylaxis Thank you for this consult Darek Arceo MD
[2018-07-11 12:59] LABS: N-TERMINAL BNP 7398.15 pg/ml (5-125)
--- NOTE | 2018-07-11 13:06 | CONSULT ---
Consult - text type - Consultation Consultation Note: Renal Consult for THERESA/CKD This is a 68 year old gentleman with history of CVA, Hypertension, Hyperlipidemia, COPD on O2, CKD (? baseline, noted to have hx of THERESA in the past ), PVD, Heart block who presented from the [place] with hypoxia and Le cellulitis. Pt is awake and alert has no acute complaints. Denies any sob, cp, abd pain, fever, chills, N/V/D. Denies hx of CKD. Denies kidney stones. No recent contrast exposure. No flank pain, hematuria, dysuria. Reports normal oral intake. Cr was 0.9 a few weeks ago. Pt unsure if he was getting Abx for his cellulitis. PMHx: as above Allergies: NKDA Family Hx: NC Social Hx: Former smoker ROS: as per HPI, all other pertinent ros negative Home Medications Medication Instructions Recorded Acetaminophen [Tylenol .Regular 325 mg PO BID PRN 06/14/17 Strength -] Albuterol 0.083% Nebulizer Kala 1 neb NEB QID 06/14/17 [Ventolin 0.083% Nebulizer Soln -] Albuterol 2.5/Ipratropium 0.5 1 neb IH QID 06/14/17 [Duoneb -] Aspirin [ASA -] 81 mg PO DAILY 06/14/17 Budesonide/Formeterol Fumarate 1 inh PO BID 06/14/17 [SYMBICORT 160/4.5mcg -] Cholecalciferol (Vitamin D3) 1,000 unit PO DAILY 06/14/17 [Vitamin D3 -] Citalopram Hydrobromide [Celexa -] 10 mg PO DAILY 06/14/17 Clopidogrel Bisulfate [Plavix -] 75 mg PO DAILY 06/14/17 Cyanocobalamin (Vitamin B-12) 50 mcg PO DAILY 06/14/17 [Vitamin B-12] Nystatin Cream [Mycostatin Cream -] 1 applic TP BID 06/14/17 Tiotropium [place] [Spiriva] 1 inh IH DAILY 06/14/17 Torsemide [Demadex -] 20 mg PO DAILY 06/14/17 Insulin (Levemir) [Levemir Vial] 5 units SQ BIDI ml 07/13/17 Insulin Sliding Scale [Novolog 1 vial SQ ACHS units 09/21/17 Vial Sliding Scale -] Nystatin Powder [Nystop Powder -] 1 applic TP DAILY applic 07/13/17 Ammonium Lactate Lotion 1 applic TP DAILY bottle 06/07/18 [Lac-Hydrin 12] Clindamycin [Cleocin -] 300 mg PO TID 7 Days #21 capsule 06/07/18 Fluocinonide 0.05% Cream [Lidex 1 applic TP DAILY tube 06/07/18 0.05% Cream -] Heparin - 5,000 unit SQ BID vial 06/07/18 Insulin Sliding Scale [Novolog 1 vial SQ ACHS units 06/07/18 Vial Sliding Scale -] Lactobacillus Acidophilus [Bacid -] 1 tab PO DAILY tab 06/07/18 Vital Signs Temperature 97.3 F L 07/11/18 09:05 Pulse Rate 84 07/11/18 09:05 Respiratory Rate 18 07/11/18 09:05 Blood Pressure 117/74 07/11/18 09:05 O2 Sat by Pulse Oximetry (%) 98 07/11/18 09:05 Intake & Output 07/08/18 07/09/18 07/10/18 07/11/18 23:59 23:59 23:59 23:59 Weight 114.759 kg NAD awake and alert Neck supple, no JVD RRR, No M/R Dec BS, no rales or wheeze soft NT/ND trace edema in LE, + erythema in both legs. tender to the touch no bladder distension CBC, BMP 07/11/18 09:00 07/11/18 09:00 Current Medications Acetaminophen (Tylenol -) 325 mg PO Q12H PRN PRN Reason: PAIN LEVEL 1 - 3 Albuterol Sulfate (Ventolin 0.083% Nebulizer Soln -) 1 amp NEB Q6H PRN PRN Reason: WHEEZING Albuterol/Ipratropium (Duoneb -) 1 amp NEB RQID RAJESH Aspirin (Asa -) 81 mg PO DAILY [facility] Last Admin: 07/11/18 09:39 Dose: 81 mg Budesonide/Formoterol Fumarate (Symbicort 160/4.5mcg -) 1 puff IH BID [facility] Last Admin: 07/11/18 09:40 Dose: Not Given Cholecalciferol (Vitamin D3 -) 1,000 unit PO DAILY [facility] Last Admin: 07/11/18 09:39 Dose: 1,000 unit Citalopram Hydrobromide (Celexa -) 10 mg PO DAILY [facility] Last Admin: 07/11/18 09:39 Dose: 10 mg Clopidogrel Bisulfate (Plavix -) 75 mg PO DAILY [facility] Last Admin: 07/11/18 09:39 Dose: 75 mg Cyanocobalamin (Vitamin B12 -) 50 mcg PO DAILY [facility] Last Admin: 07/11/18 09:39 Dose: 50 mcg Fluocinonide (Lidex 0.05% Cream -) 1 applic TP DAILY [facility] Last Admin: 07/11/18 09:40 Dose: Not Given Heparin Sodium (Porcine) (Heparin -) 5,000 unit SQ BID [facility] Last Admin: 07/11/18 09:38 Dose: 5,000 unit Insulin Aspart (Novolog Vial Sliding Scale -) 1 vial SQ [facility]; Protocol Last Admin: 07/11/18 11:36 Dose: Not Given Insulin Detemir (Levemir Vial) 5 units SQ BIDI [facility] Last Admin: 07/11/18 07:03 Dose: 5 units Lactic Acid (Lac-Hydrin 12) 1 applic TP DAILY [facility] Last Admin: 07/11/18 09:40 Dose: Not Given Lactobacillus Acidophilus (Bacid -) 1 tab PO DAILY [facility] Last Admin: 07/11/18 09:39 Dose: 1 tab Methylprednisolone Sodium Succinate (Solu-Medrol -) 60 mg IVPUSH Q8H-IV RAJESH Nystatin (Mycostatin Cream -) 1 applic TP BID [facility] Last Admin: 07/11/18 09:40 Dose: Not Given Nystatin (Nystop Powder -) 1 applic TP DAILY [facility] Last Admin: 07/11/18 09:41 Dose: Not Given Torsemide (Demadex -) 20 mg PO DAILY [facility] Last Admin: 07/11/18 09:39 Dose: 20 mg 68 year old gentleman with history of CVA, Hypertension, Hyperlipidemia, COPD on O2, CKD (? baseline, noted to have hx of THERESA in the past ), PVD, Heart block who presented from the [place] with hypoxia and Le cellulitis. #THERESA likely due to mild volume depletion (high BUN/Cr ratio, on diuretics, concurrent infection) #COPD exacerbation #LE cellulitis #Hypertension #Anemia #DM on insulin Check urine studies for FeNa, UPCR hold diuretics and give trial of IVF, NS at 100cc per hour x 24 hours (no significnat Le edema, and CXR showed no effusions, ECHO from last year showed normal LV function) Expect to see BUN rise as pt is on IV steroids O2 as needed, taper steroids as per pulmonary Abx as per ID BP within acceptable range, monitor off anithypertensives Check iron studies Thank you Will follow Kartik Escobedo DO
[2018-07-11] MEDS ORDERED: SODIUM CHLORIDE 1,000 ML IV SCH (13:15)
[2018-07-11] MEDS ORDERED: methylPREDNISolone NA SUCC 40 MG/1 ML VIAL ONE (13:18)
[2018-07-11 13:32] LABS: ARTERIAL BLD GAS O2 SATURATION 98.7 % (90-98.9); ARTERIAL BLOOD GAS BASE EXCESS 12.7 meq/l (-2-2); ARTERIAL BLOOD GAS pH 7.35 (7.35-7.45)
[2018-07-11 13:47] LABS: ALLENS TEST POSITIVE
[2018-07-11 13:48] LABS: ARTERIAL BLOOD GAS PCO2 75.4 mmHg (35-45)
[2018-07-11] MEDS: methylPREDNISolone NA SUCC 40 MG/1 ML VIAL IVPUSH SCH ×2 (14:04→21:46)
[2018-07-11] MEDS: ALBUTEROL SO4 2.5/IPRATROPIUM 0.5 INH SOL 3 ML VIAL.NEB. NEB SCH ×2 (19:00→20:31)
[2018-07-11] MEDS ORDERED: FLU VACCINE QUAD 60 MCG/0.5 ML (MDV 18-19) IM ONE (20:30)
[2018-07-11] MEDS ORDERED: PT OWN MED DRAWER 7, Y5N ONE ×2 (21:21→22:56)
[2018-07-11] MEDS: ALBUTEROL SO4 0.083% IH SOL 2.5 MG/3 ML VIAL.NEB. NEB PRN (22:00)
[2018-07-11] MEDS ORDERED: VANCOMYCIN 1,000 MG in DEXTROSE 5%-WATER - 250 ML IVPB ONE (23:30)
[2018-07-12 00:21] LABS: URINE APPEARANCE CLEAR; URINE BILIRUBIN NEGATIVE (<2.0 mg/dL); URINE COLOR YELLOW; URINE GLUCOSE (UA) NEGATIVE (NEGATIVE); URINE KETONE NEGATIVE (NEGATIVE); URINE LEUK ESTERASE NEGATIVE (NEGATIVE); URINE NITRITE NEGATIVE (NEGATIVE); URINE PROTEIN NEGATIVE (NEGATIVE); URINE UROBILINOGEN NEGATIVE mg/dL (0.2-1.0)
[2018-07-12] MEDS: methylPREDNISolone NA SUCC 40 MG/1 ML VIAL IVPUSH SCH ×4 (00:59→17:18)
[2018-07-12] MEDS ORDERED: PT OWN MED DRAWER 7, Y5N ONE ×3 (06:11→18:42)
[2018-07-12 06:24] LABS: BASO % 0.2 % (0-2.0); HEMATOCRIT 37.1 % (35.4-49); HEMOGLOBIN 11.2 GM/dL (11.7-16.9); LYMPH % 5.2 % (8-40); MCH 22.5 pg (25.7-33.7); MCHC 30.3 g/dl (32.0-35.9); MEAN CELL VOLUME 74.4 fl (80-96); MEAN PLT VOLUME 7.6 fl (7.5-11.1); MONO % 0.8 % (3.8-10.2); NEUT % 93.8 % (42.8-82.8); PLATELET COUNT 206 K/MM3 (134-434); RBC 4.99 M/mm3 (4.00-5.60); RDW 20.9 % (11.9-15.9); WHITE BLOOD COUNT 4.3 K/mm3 (4.0-10.0)
[2018-07-12] MEDS: INSULIN (LEVEMIR) 100 UNITS/ML UNITS SQ SCH ×2 (06:41→17:13)
[2018-07-12] MEDS: INSULIN SLIDING SCALE (NOVOLOG) 1 VIAL SQ SCH ×4 (06:41→21:27)
[2018-07-12 06:43] LABS: ALBUMIN 2.4 g/dl (3.4-5.0); ANION GAP 5 MMOL/L (8-16); BILIRUBIN,TOTAL 0.3 mg/dL (0.2-1); BLOOD UREA NITROGEN 38 mg/dL (7-18); CALCIUM 8.2 mg/dL (8.5-10.1); CHLORIDE 100 mmol/L (98-107); CO2 36 mmol/L (21-32); CREATININE 1.3 mg/dL (0.55-1.3); GLUCOSE,RANDOM 294 mg/dL (74-106); MAGNESIUM 2.4 mg/dL (1.8-2.4); POTASSIUM 4.7 mmol/L (3.5-5.1); SGOT/AST 10 U/L (15-37); SGPT/ALT 12 U/L (13-61); SODIUM 141 mmol/L (136-145); TOT PROT 6.6 g/dl (6.4-8.2)
[2018-07-12 06:46] LABS: ALK PHOS 64 U/L (45-117); PHOSPHOROUS 3.9 mg/dL (2.5-4.9)
[2018-07-12] MEDS: ALBUTEROL SO4 2.5/IPRATROPIUM 0.5 INH SOL 3 ML VIAL.NEB. NEB SCH ×4 (08:31→20:23)
--- NOTE | 2018-07-12 09:14 | PN ---
Progress Note, Physician Chief Complaint: no CP/SOB chronic legs pains, rash also groin rash; on IV vanco, ID and consult called - consider derm eval also - dw pt - Current Medication List Current Medications: Active Medications Acetaminophen (Tylenol -) 325 mg PO Q12H PRN PRN Reason: PAIN LEVEL 1 - 3 Albuterol Sulfate (Ventolin 0.083% Nebulizer Soln -) 1 amp NEB Q6H PRN PRN Reason: WHEEZING Last Admin: 07/11/18 22:00 Dose: 1 amp Albuterol/Ipratropium (Duoneb -) 1 amp NEB RQID [facility] Last Admin: 07/12/18 08:31 Dose: 1 amp Aspirin (Asa -) 81 mg PO DAILY [facility] Last Admin: 07/11/18 09:39 Dose: 81 mg Budesonide/Formoterol Fumarate (Symbicort 160/4.5mcg -) 1 puff IH BID [facility] Last Admin: 07/11/18 21:46 Dose: 1 puff Cholecalciferol (Vitamin D3 -) 1,000 unit PO DAILY [facility] Last Admin: 07/11/18 09:39 Dose: 1,000 unit Citalopram Hydrobromide (Celexa -) 10 mg PO DAILY [facility] Last Admin: 07/11/18 09:39 Dose: 10 mg Clopidogrel Bisulfate (Plavix -) 75 mg PO DAILY [facility] Last Admin: 07/11/18 09:39 Dose: 75 mg Cyanocobalamin (Vitamin B12 -) 50 mcg PO DAILY [facility] Last Admin: 07/11/18 09:39 Dose: 50 mcg Fluocinonide (Lidex 0.05% Cream -) 1 applic TP DAILY [facility] Last Admin: 07/11/18 09:40 Dose: Not Given Heparin Sodium (Porcine) (Heparin -) 5,000 unit SQ BID [facility] Last Admin: 07/11/18 21:46 Dose: 5,000 unit Insulin Aspart (Novolog Vial Sliding Scale -) 1 vial SQ [facility]; Protocol Last Admin: 07/12/18 06:41 Dose: 6 units Insulin Detemir (Levemir Vial) 5 units SQ BIDI [facility] Last Admin: 07/12/18 06:41 Dose: 5 units Lactic Acid (Lac-Hydrin 12) 1 applic TP DAILY [facility] Last Admin: 07/11/18 09:40 Dose: Not Given Lactobacillus Acidophilus (Bacid -) 1 tab PO DAILY [facility] Last Admin: 07/11/18 09:39 Dose: 1 tab Methylprednisolone Sodium Succinate (Solu-Medrol -) 60 mg IVPUSH Q8H-IV [facility] Last Admin: 07/12/18 00:59 Dose: 60 mg Nystatin (Mycostatin Cream -) 1 applic TP BID [facility] Last Admin: 07/11/18 21:46 Dose: Not Given Nystatin (Nystop Powder -) 1 applic TP DAILY [facility] Last Admin: 07/11/18 09:41 Dose: Not Given - Objective Vital Signs: Vital Signs Temperature 97.2 F L 07/12/18 06:00 Pulse Rate 40 L 07/12/18 06:00 Respiratory Rate 20 07/12/18 06:00 Blood Pressure 132/53 07/12/18 06:00 O2 Sat by Pulse Oximetry (%) 96 07/12/18 08:31 Constitutional: Yes: No Distress, Calm Eyes: Yes: Conjunctiva Clear HENT: Yes: Atraumatic Neck: Yes: Supple Cardiovascular: Yes: Regular Rate and Rhythm Respiratory: Yes: CTA Bilaterally Gastrointestinal: Yes: Soft. No: Tenderness Genitourinary: No: CVA Tenderness - Left, CVA Tenderness - Right Musculoskeletal: No: Joint Stiffness, Joint Swelling Extremities: No: Cold, Cool Edema: Yes Integumentary: Yes: Rash, Venous Stasis Changes Wound/Incision: Yes: Excoriated Neurological: Yes: WNL, Alert, Oriented ...Motor Strength: WNL Psychiatric: Yes: WNL, Alert, Oriented. No: Agitated, Suicidal Ideation Labs: CBC, BMP 07/12/18 06:00 07/12/18 06:00 - ....Imaging Other: Report Reviewed Assessment/Plan The patient is a 68M with a PMH of CVA, CAD, HTN, HLD, COPD (on 3L O2), CKD, DM , b/l LE cellulitis who presents to the ER because of hypoxemia with an O2 saturation to be in the 70's at home. Admitted to telemetry r/o ASHD legs c/w cellulitis and inguinal rash with excoriations cardiology and pulmonary f/u Iv antibiotics; ID eval ARF/CRF improved; renal f/u; labs f/u will ask to see him for h/o groin pain; had scrotal US WNL in [facility] recently derm eval for rash (legs, groin) falls DVT decubs pfx wound care d/w pt and staff; called pt's - left message
[2018-07-12] MEDS: BUDESONIDE/FORMETEROL FUMARATE 160/4.5 mcg INHALER IH SCH ×2 (10:12→22:50)
[2018-07-12] MEDS: CITALOPRAM HYDROBROMIDE 10 MG TABLET (FP) PO SCH (10:14)
[2018-07-12] MEDS: LACTOBACILLUS ACIDOPHILUS 1 TABLET PO SCH (10:14)
[2018-07-12] MEDS: HEPARIN NA (PORCINE) 5,000 UNITS/ML 1ML VIAL SQ SCH ×2 (10:15→21:25)
[2018-07-12] MEDS: CHOLECALCIFEROL (VITAMIN D3) 1,000 UNIT TABLET (FP) PO SCH (10:15)
[2018-07-12] MEDS: CYANOCOBALAMIN (VITAMIN B-12) 100 MCG TABLET PO SCH (10:16)
[2018-07-12] MEDS: ASPIRIN 81 MG CHEWABLE TABLETS PO SCH (10:17)
[2018-07-12] MEDS: CLOPIDOGREL BISULFATE 75 MG TABLET (FP) PO SCH (10:17)
[2018-07-12] MEDS: FLUOCINONIDE 0.05% CREAM (15 GM TUBE) TP SCH (10:22)
[2018-07-12] MEDS: AMMONIUM LACTATE 12% LOTION 225 GM BOTTLE TP SCH (10:22)
[2018-07-12] MEDS: NYSTATIN 100,000 UNIT/GM TOPICAL CREAM 15 GM TUBE TP SCH ×2 (10:23→21:26)
[2018-07-12] MEDS: NYSTATIN POWDER 100,000 UNITS/GM - 15 GM TOPICAL POWDER TP SCH (10:23)
--- NOTE | 2018-07-12 10:50 | PN ---
Progress Note (short form) - Note Progress Note: s: no cp, sob, palps dizzy o: Vital Signs Period Temp Pulse Resp BP Sys/Mullen Pulse Ox Last 24 Hr 97.2 F-98.5 F 40-75 18-20 118-143/53-68 94-97 Constitutional: Yes: No Distress, Calm Eyes: Yes: Conjunctiva Clear Neck: Yes: Supple, Trachea Midline Respiratory: Yes: On Nasal O2, Wheezes, Other (prolonged expiratory phase with scattered wheezes with expiration) Gastrointestinal: Yes: Normal Bowel Sounds, Soft Renal/: Yes: WNL Cardiovascular: Yes: Regular Rate and Rhythm JVD: No Heart Sounds: Yes: S1, S2 Extremities: Yes: Erythema, Other (erythema bilateral feet and ankles with weeping from wounds on R foot) Edema: Yes Edema: LLE: 2+, RLE: 2+ Neurological: Yes: Alert, Oriented Current Medications Generic Name Dose Route Start Last Admin Trade Name Freq PRN Reason Stop Dose Admin Acetaminophen 325 mg 07/10/18 16:42 Tylenol - PO Q12H PRN PAIN LEVEL 1 - 3 Albuterol Sulfate 1 amp 07/10/18 16:42 07/11/18 22:00 Ventolin 0.083% Nebulizer Soln - NEB 1 amp Q6H PRN Administration WHEEZING Albuterol/Ipratropium 1 amp 07/11/18 16:00 07/12/18 08:31 Duoneb - NEB 1 amp RQID RAJESH Administration Aspirin 81 mg 07/11/18 10:00 07/12/18 10:17 Asa - PO 81 mg DAILY RAJESH Administration Budesonide/Formoterol Fumarate 1 puff 07/10/18 22:00 07/12/18 10:12 Symbicort 160/4.5mcg - IH 1 puff BID RAJESH Administration Cholecalciferol 1,000 unit 07/11/18 10:00 07/12/18 10:15 Vitamin D3 - PO 1,000 unit DAILY RAJESH Administration Citalopram Hydrobromide 10 mg 07/11/18 10:00 07/12/18 10:14 Celexa - PO 10 mg DAILY RAJESH Administration Clopidogrel Bisulfate 75 mg 07/11/18 10:00 07/12/18 10:17 Plavix - PO 75 mg DAILY RAJESH Administration Cyanocobalamin 50 mcg 07/11/18 10:00 07/12/18 10:16 Vitamin B12 - PO 50 mcg DAILY RAJESH Administration Fluocinonide 1 applic 07/11/18 10:00 07/12/18 10:22 Lidex 0.05% Cream - TP 1 applic DAILY RAJESH Administration Heparin Sodium (Porcine) 5,000 unit 07/10/18 22:00 07/12/18 10:15 Heparin - SQ 5,000 unit BID RAJESH Administration Insulin Aspart 1 vial 07/10/18 22:00 07/12/18 06:41 Novolog Vial Sliding Scale - SQ 6 units ACHS RAJESH Administration Protocol Insulin Detemir 5 units 07/11/18 07:00 07/12/18 06:41 Levemir Vial SQ 5 units BIDI RAJESH Administration Lactic Acid 1 applic 07/11/18 10:00 07/12/18 10:22 Lac-Hydrin 12 TP 1 applic DAILY RAJESH Administration Lactobacillus Acidophilus 1 tab 07/11/18 10:00 07/12/18 10:14 Bacid - PO 1 tab DAILY RAJESH Administration Methylprednisolone Sodium Succinate 60 mg 07/11/18 12:30 07/12/18 10:12 Solu-Medrol - IVPUSH 60 mg Q8H-IV RAJESH Administration Nystatin 1 applic 07/10/18 22:00 07/12/18 10:23 Mycostatin Cream - TP 1 applic BID RAJESH Administration Nystatin 1 applic 07/11/18 10:00 07/12/18 10:23 Nystop Powder - TP 1 applic DAILY RAJESH Administration CBC, BMP 07/12/18 06:00 07/12/18 06:00 Assessment/Plan echo 12/2016: nl lv/rv, mild lae, mild mr, mild-mod tr, possible mild as, mild phtn exercise mibi 01/02: no ischemia at 80% mphr cxr: no acute process EKG: sinus, LBBB, mobitz 1 (similar to prior EKG from 2016; EKG from 05/2018 sinus, 1st deg AVB, LBBB) tele: sr, mobitz I, no sig kathy/pause a/p: 68 m hx htn, hld, dm, obesity, tia 2004, lbbb, dchf/venous insuff, recurrent le cellulitis, mobitz 1 avb and first degree avb, pad s/p left fem- pop bypass, smoking, copd, here with le cellulitis, hypoxia Abnormal EKG, mobitz 1 - chronic finding, has had prior event monitors in clinic showing mobitz 1 without pauses - noted on prior EKGs here - avoid AV arsh blocking agents Hypoxia, COPD - denies dyspnea, sats improved - has h/o diastolic CHF however on exam appears euvolemic - exam more consistent with COPD exacerbation, pulm following, Dr. Arceo chronic venous insuff/LE edema, recurrent cellulitis: - vasc surgery/wound team consulted PAD: -prior h/o left fem-pop bypass, cont dapt, statin chronic diastolic CHF -echoes have been unremarkable or very TDS in past, most recent 12/2016 was unremarkable -would continue home torsemide when cr stable htn: -stable, controlled hld: -cont statin h/o TIA (2003): -on ASA, statin for sec prevention, cont same
[2018-07-12 11:06] LABS: ANISOCYTOSIS 1+; MACROCYTOSIS 0; PLATELET ESTIMATE NORMAL
--- NOTE | 2018-07-12 11:24 | PN ---
Progress Note, Physician History of Present Illness: pulmonary no distress,comfortable,-tachypnea - Current Medication List Current Medications: Active Medications Acetaminophen (Tylenol -) 325 mg PO Q12H PRN PRN Reason: PAIN LEVEL 1 - 3 Albuterol Sulfate (Ventolin 0.083% Nebulizer Soln -) 1 amp NEB Q6H PRN PRN Reason: WHEEZING Last Admin: 07/11/18 22:00 Dose: 1 amp Albuterol/Ipratropium (Duoneb -) 1 amp NEB RQID [facility] Last Admin: 07/12/18 08:31 Dose: 1 amp Aspirin (Asa -) 81 mg PO DAILY [facility] Last Admin: 07/12/18 10:17 Dose: 81 mg Budesonide/Formoterol Fumarate (Symbicort 160/4.5mcg -) 1 puff IH BID [facility] Last Admin: 07/12/18 10:12 Dose: 1 puff Cholecalciferol (Vitamin D3 -) 1,000 unit PO DAILY [facility] Last Admin: 07/12/18 10:15 Dose: 1,000 unit Citalopram Hydrobromide (Celexa -) 10 mg PO DAILY [facility] Last Admin: 07/12/18 10:14 Dose: 10 mg Clopidogrel Bisulfate (Plavix -) 75 mg PO DAILY [facility] Last Admin: 07/12/18 10:17 Dose: 75 mg Cyanocobalamin (Vitamin B12 -) 50 mcg PO DAILY [facility] Last Admin: 07/12/18 10:16 Dose: 50 mcg Fluocinonide (Lidex 0.05% Cream -) 1 applic TP DAILY [facility] Last Admin: 07/12/18 10:22 Dose: 1 applic Heparin Sodium (Porcine) (Heparin -) 5,000 unit SQ BID [facility]JESH Last Admin: 07/12/18 10:15 Dose: 5,000 unit Insulin Aspart (Novolog Vial Sliding Scale -) 1 vial SQ ACHS [facility]; Protocol Last Admin: 07/12/18 06:41 Dose: 6 units Insulin Detemir (Levemir Vial) 5 units SQ BIDI [facility] Last Admin: 07/12/18 06:41 Dose: 5 units Lactic Acid (Lac-Hydrin 12) 1 applic TP DAILY [facility] Last Admin: 07/12/18 10:22 Dose: 1 applic Lactobacillus Acidophilus (Bacid -) 1 tab PO DAILY [facility] Last Admin: 07/12/18 10:14 Dose: 1 tab Methylprednisolone Sodium Succinate (Solu-Medrol -) 60 mg IVPUSH Q8H-IV [facility]JESH Last Admin: 07/12/18 10:12 Dose: 60 mg Nystatin (Mycostatin Cream -) 1 applic TP BID [facility]JESH Last Admin: 07/12/18 10:23 Dose: 1 applic Nystatin (Nystop Powder -) 1 applic TP DAILY [facility]JESH Last Admin: 07/12/18 10:23 Dose: 1 applic - Objective Vital Signs: Vital Signs Temperature 97.2 F L 07/12/18 06:00 Pulse Rate 40 L 07/12/18 06:00 Respiratory Rate 20 07/12/18 06:00 Blood Pressure 132/53 07/12/18 06:00 O2 Sat by Pulse Oximetry (%) 95 07/12/18 09:00 Constitutional: Yes: Well Nourished, Calm, Obese Eyes: Yes: WNL HENT: Yes: WNL Neck: Yes: WNL Cardiovascular: Yes: Regular Rate and Rhythm, S1, S2 Respiratory: Yes: Diminished Gastrointestinal: Yes: Normal Bowel Sounds, Soft Extremities: Yes: WNL Edema: Yes Labs: CBC, BMP 07/12/18 06:00 07/12/18 06:00 Problem List - Problems (1) Acute on chronic respiratory failure with hypoxia and hypercapnia Code(s): J96.21 - ACUTE AND CHRONIC RESPIRATORY FAILURE WITH HYPOXIA; J96.22 - ACUTE AND CHRONIC RESPIRATORY FAILURE WITH HYPERCAPNIA (2) Cellulitis of leg Code(s): L03.119 - CELLULITIS OF UNSPECIFIED PART OF LIMB Qualifiers: Laterality: unspecified laterality Qualified Code(s): L03.119 - Cellulitis of unspecified part of limb (3) Altered mental state Code(s): R41.82 - ALTERED MENTAL STATUS, UNSPECIFIED Qualifiers: Altered mental status type: transient alteration of awareness Qualified Code(s): R40.4 - Transient alteration of awareness (4) COPD (chronic obstructive pulmonary disease) Code(s): J44.9 - CHRONIC OBSTRUCTIVE PULMONARY DISEASE, UNSPECIFIED Qualifiers: COPD type: COPD with acute exacerbation Qualified Code(s): J44.1 - Chronic obstructive pulmonary disease with (acute) exacerbation (5) Chronic renal disease Code(s): N18.9 - CHRONIC KIDNEY DISEASE, UNSPECIFIED (6) Chronic venous stasis dermatitis of both lower extremities Code(s): I83.11 - VARICOSE VEINS OF RIGHT LOWER EXTREMITY WITH INFLAMMATION; I83.12 - VARICOSE VEINS OF LEFT LOWER EXTREMITY WITH INFLAMMATION (7) Hypoxia Code(s): R09.02 - HYPOXEMIA (8) Sleep apnea Code(s): G47.30 - SLEEP APNEA, UNSPECIFIED (9) CAD (coronary artery disease) Code(s): I25.10 - ATHSCL HEART DISEASE OF [place] CORONARY ARTERY W/O ANG PCTRS (10) COPD (chronic obstructive pulmonary disease) with chronic bronchitis Code(s): J44.9 - CHRONIC OBSTRUCTIVE PULMONARY DISEASE, UNSPECIFIED (11) Diabetes Code(s): E11.9 - TYPE 2 DIABETES MELLITUS WITHOUT COMPLICATIONS Qualifiers: Diabetes mellitus type: type 2 (12) Leg edema Code(s): R60.0 - LOCALIZED EDEMA (13) MARTIN treated with BiPAP Code(s): G47.33 - OBSTRUCTIVE SLEEP APNEA (ADULT) (PEDIATRIC) (14) Obesity Code(s): E66.9 - OBESITY, UNSPECIFIED (15) PVD (peripheral vascular disease) Code(s): I73.9 - PERIPHERAL VASCULAR DISEASE, UNSPECIFIED Assessment/Plan Assessment/Plan Acute on Chronic Hypoxic and Hypercapneic Respiratory Failure Acute COPD Exacerbation Cellulitis LV Diastolic Dysfunction HTN DM Hyperlipidemia PAD h/o CVA Smoker - continue antibiotics - IV medrol taper - inhaled bronchodilators standing and PRN - check ABG - O2 to keep SpO2 >85% - BiPAP as needed - smoking cessation - DVT prophylaxis DR GREEN
--- NOTE | 2018-07-12 14:07 | PN ---
Progress Note (short form) - Note Progress Note: Renal Follow up for THERESA Pt seen and examined at the bedside has no acute complaints was on fluids overnight uses BIPAP when he sleeps making urine no sob at rest Vital Signs Temperature 97.2 F L 07/12/18 06:00 Pulse Rate 40 L 07/12/18 06:00 Respiratory Rate 20 07/12/18 06:00 Blood Pressure 132/53 07/12/18 06:00 O2 Sat by Pulse Oximetry (%) 95 07/12/18 12:05 Intake & Output 07/09/18 07/10/18 07/11/18 07/12/18 23:59 23:59 23:59 23:59 Intake Total 500 1760 Balance 500 1760 Weight 114.759 kg 104.78 kg NAD RRR, No M/R Dec BS, no rales or wheeze soft NT/ND trace edema in LE, + erythema in both legs, improved CBC, BMP 07/12/18 06:00 07/12/18 06:00 Current Medications Acetaminophen (Tylenol -) 325 mg PO Q12H PRN PRN Reason: PAIN LEVEL 1 - 3 Albuterol Sulfate (Ventolin 0.083% Nebulizer Soln -) 1 amp NEB Q6H PRN PRN Reason: WHEEZING Last Admin: 07/11/18 22:00 Dose: 1 amp Albuterol/Ipratropium (Duoneb -) 1 amp NEB RQID [facility] Last Admin: 07/12/18 12:04 Dose: 1 amp Aspirin (Asa -) 81 mg PO DAILY [facility] Last Admin: 07/12/18 10:17 Dose: 81 mg Budesonide/Formoterol Fumarate (Symbicort 160/4.5mcg -) 1 puff IH BID [facility] Last Admin: 07/12/18 10:12 Dose: 1 puff Cholecalciferol (Vitamin D3 -) 1,000 unit PO DAILY [facility] Last Admin: 07/12/18 10:15 Dose: 1,000 unit Citalopram Hydrobromide (Celexa -) 10 mg PO DAILY [facility] Last Admin: 07/12/18 10:14 Dose: 10 mg Clopidogrel Bisulfate (Plavix -) 75 mg PO DAILY [facility] Last Admin: 07/12/18 10:17 Dose: 75 mg Cyanocobalamin (Vitamin B12 -) 50 mcg PO DAILY [facility] Last Admin: 07/12/18 10:16 Dose: 50 mcg Fluocinonide (Lidex 0.05% Cream -) 1 applic TP DAILY [facility] Last Admin: 07/12/18 10:22 Dose: 1 applic Heparin Sodium (Porcine) (Heparin -) 5,000 unit SQ BID [facility]JESH Last Admin: 07/12/18 10:15 Dose: 5,000 unit Insulin Aspart (Novolog Vial Sliding Scale -) 1 vial SQ ACHS [facility]; Protocol Last Admin: 07/12/18 11:37 Dose: 6 units Insulin Detemir (Levemir Vial) 5 units SQ BIDI [facility]JESH Last Admin: 07/12/18 06:41 Dose: 5 units Lactic Acid (Lac-Hydrin 12) 1 applic TP DAILY [facility] Last Admin: 07/12/18 10:22 Dose: 1 applic Lactobacillus Acidophilus (Bacid -) 1 tab PO DAILY [facility] Last Admin: 07/12/18 10:14 Dose: 1 tab Methylprednisolone Sodium Succinate (Solu-Medrol -) 40 mg IVPUSH Q8H-IV [facility]JESH Last Admin: 07/12/18 13:10 Dose: 40 mg Nystatin (Mycostatin Cream -) 1 applic TP BID [facility]JESH Last Admin: 07/12/18 10:23 Dose: 1 applic Nystatin (Nystop Powder -) 1 applic TP DAILY [facility] Last Admin: 07/12/18 10:23 Dose: 1 applic 68 year old gentleman with history of CVA, Hypertension, Hyperlipidemia, COPD on O2, CKD (? baseline, noted to have hx of THERESA in the past ), PVD, Heart block [facility]. #THERESA likely due to mild volume depletion (high BUN/Cr ratio, on diuretics, concurrent infection) #COPD exacerbation #LE cellulitis #Hypertension #Anemia #DM on insulin Renal function now improved FeUrea was 27% indicating preserved tubular function will D/c IVF now and trend renal function, oral fluid intake as tolerated would continue to hold diuretics for now if pt is w/o signs of volume overload Continue steroids as per pulmonary Trend renal function and electrolytes Thank you Will follow Kartik Escobedo DO
--- NOTE | 2018-07-12 16:17 | PN ---
Progress Note (short form) - Note Progress Note: ID consult dictated imp/reccd 68 year old man with COPD on oxygen and bipap at home chronic leg wounds/venous stasis admitted for worsening of the legs history of MRSA continue vancomycin wound care [place] - dr barrera antifungal ointment for the groin rash Problem List - Problems (1) Cellulitis of leg Code(s): L03.119 - CELLULITIS OF UNSPECIFIED PART OF LIMB Qualifiers: Laterality: unspecified laterality Qualified Code(s): L03.119 - Cellulitis of unspecified part of limb (2) Chronic venous stasis dermatitis of both lower extremities Code(s): I83.11 - VARICOSE VEINS OF RIGHT LOWER EXTREMITY WITH INFLAMMATION; I83.12 - VARICOSE VEINS OF LEFT LOWER EXTREMITY WITH INFLAMMATION (3) Karla rash of groin Code(s): B37.89 - OTHER SITES OF CANDIDIASIS (4) MRSA (methicillin resistant staph aureus) culture positive Code(s): Z22.322 - CARRIER OR SUSPECTED CARRIER OF METHICILLIN RESIS STAPH
[2018-07-12] MEDS ORDERED: INSULIN (NOVOLOG) ASPART 100 UNITS/ML 10ML VIAL ONE ×2 (17:49→21:27)
[2018-07-13] MEDS: VANCOMYCIN 1,250 MG in DEXTROSE 5%-WATER - 250 ML IVPB SCH ×2 (00:35→23:19)
[2018-07-13] MEDS: methylPREDNISolone NA SUCC 40 MG/1 ML VIAL IVPUSH SCH ×3 (02:14→17:07)
[2018-07-13 06:06] LABS: SERUM IRON SATURATION 7 % (15-55); TOTAL IRON BINDING CAPACITY 271 ug/dL (250-450); UIBC 251 ug/dL (111-343)
[2018-07-13] MEDS: INSULIN SLIDING SCALE (NOVOLOG) 1 VIAL SQ SCH ×4 (06:38→22:45)
[2018-07-13] MEDS: INSULIN (LEVEMIR) 100 UNITS/ML UNITS SQ SCH ×2 (06:39→16:58)
[2018-07-13 06:51] LABS: HEMATOCRIT 33.9 % (35.4-49); HEMOGLOBIN 10.4 GM/dL (11.7-16.9); LYMPH % 2.9 % (8-40); MCH 22.7 pg (25.7-33.7); MCHC 30.7 g/dl (32.0-35.9); MEAN PLT VOLUME 7.5 fl (7.5-11.1); MONO % 1.8 % (3.8-10.2); NEUT % 95.3 % (42.8-82.8); PLATELET COUNT 205 K/MM3 (134-434); RBC 4.58 M/mm3 (4.00-5.60); RDW 20.8 % (11.9-15.9); WHITE BLOOD COUNT 10.2 K/mm3 (4.0-10.0)
[2018-07-13 07:17] LABS: ANION GAP 6 MMOL/L (8-16); BLOOD UREA NITROGEN 46 mg/dL (7-18); CALCIUM 8.3 mg/dL (8.5-10.1); CHLORIDE 101 mmol/L (98-107); CO2 35 mmol/L (21-32); CREATININE 1.3 mg/dL (0.55-1.3); GLUCOSE,RANDOM 211 mg/dL (74-106); MAGNESIUM 2.5 mg/dL (1.8-2.4); PHOSPHOROUS 3.6 mg/dL (2.5-4.9); POTASSIUM 4.6 mmol/L (3.5-5.1); SODIUM 142 mmol/L (136-145)
[2018-07-13] MEDS: ALBUTEROL SO4 2.5/IPRATROPIUM 0.5 INH SOL 3 ML VIAL.NEB. NEB SCH ×4 (07:35→21:00)
[2018-07-13] MEDS ORDERED: PT OWN MED DRAWER 7, Y5N ONE ×4 (09:45→22:24)
--- NOTE | 2018-07-13 09:48 | PN ---
Progress Note, Physician Chief Complaint: has feet pains R>L no CP/SOB VSS afebrile consults reviewed and d/w pt; he asks constantly for extra food, biscuits, cookies and crackers; d/w pt the importance to be compliant with diabetic diet. - Current Medication List Current Medications: Active Medications Acetaminophen (Tylenol -) 325 mg PO Q12H PRN PRN Reason: PAIN LEVEL 1 - 3 Albuterol Sulfate (Ventolin 0.083% Nebulizer Soln -) 1 amp NEB Q6H PRN PRN Reason: WHEEZING Last Admin: 07/11/18 22:00 Dose: 1 amp Albuterol/Ipratropium (Duoneb -) 1 amp NEB RQID [facility] Last Admin: 07/13/18 07:35 Dose: 1 amp Aspirin (Asa -) 81 mg PO DAILY [facility] Last Admin: 07/12/18 10:17 Dose: 81 mg Budesonide/Formoterol Fumarate (Symbicort 160/4.5mcg -) 1 puff IH BID [facility] Last Admin: 07/12/18 22:50 Dose: 1 puff Cholecalciferol (Vitamin D3 -) 1,000 unit PO DAILY [facility] Last Admin: 07/12/18 10:15 Dose: 1,000 unit Citalopram Hydrobromide (Celexa -) 10 mg PO DAILY [facility] Last Admin: 07/12/18 10:14 Dose: 10 mg Clopidogrel Bisulfate (Plavix -) 75 mg PO DAILY [facility] Last Admin: 07/12/18 10:17 Dose: 75 mg Cyanocobalamin (Vitamin B12 -) 50 mcg PO DAILY [facility] Last Admin: 07/12/18 10:16 Dose: 50 mcg Fluocinonide (Lidex 0.05% Cream -) 1 applic TP DAILY [facility] Last Admin: 07/12/18 10:22 Dose: 1 applic Heparin Sodium (Porcine) (Heparin -) 5,000 unit SQ BID [facility] Last Admin: 07/12/18 21:25 Dose: 5,000 unit Vancomycin HCl 1,250 mg/ (Dextrose) 250 mls @ 250 mls/2 hr IVPB Q24H [facility]; Protocol Last Admin: 07/13/18 00:35 Dose: 250 mls/2 hr Insulin Aspart (Novolog Vial Sliding Scale -) 1 vial SQ ACHS [facility]; Protocol Last Admin: 07/13/18 06:38 Dose: 4 units Insulin Detemir (Levemir Vial) 5 units SQ BIDI [facility] Last Admin: 07/13/18 06:39 Dose: 5 units Lactic Acid (Lac-Hydrin 12) 1 applic TP DAILY [facility] Last Admin: 07/12/18 10:22 Dose: 1 applic Lactobacillus Acidophilus (Bacid -) 1 tab PO DAILY [facility] Last Admin: 07/12/18 10:14 Dose: 1 tab Methylprednisolone Sodium Succinate (Solu-Medrol -) 40 mg IVPUSH Q8H-IV [facility] Last Admin: 07/13/18 02:14 Dose: 40 mg Nystatin (Mycostatin Cream -) 1 applic TP BID [facility] Last Admin: 07/12/18 21:26 Dose: 1 applic Nystatin (Nystop Powder -) 1 applic TP DAILY [facility] Last Admin: 07/12/18 10:23 Dose: 1 applic - Objective Vital Signs: Vital Signs Temperature 97.8 F 07/13/18 06:57 Pulse Rate 60 07/13/18 06:57 Respiratory Rate 18 07/13/18 06:57 Blood Pressure 148/73 07/13/18 06:57 O2 Sat by Pulse Oximetry (%) 95 07/12/18 21:00 Constitutional: Yes: No Distress, Calm Eyes: Yes: Conjunctiva Clear HENT: Yes: Atraumatic Neck: Yes: Supple Cardiovascular: Yes: Regular Rate and Rhythm Respiratory: Yes: CTA Bilaterally Gastrointestinal: Yes: Soft. No: Tenderness Genitourinary: No: CVA Tenderness - Left, CVA Tenderness - Right Musculoskeletal: No: Joint Stiffness, Joint Swelling Extremities: No: Cold, Cool, Cyanosis Edema: Yes Integumentary: Yes: Rash (legs), Skin Tear, Venous Stasis Changes Neurological: Yes: WNL, Alert, Oriented ...Motor Strength: WNL Psychiatric: Yes: WNL, Alert, Oriented. No: Agitated, Suicidal Ideation Labs: CBC, BMP 07/13/18 06:00 07/13/18 06:00 - ....Imaging Other: Report Reviewed Assessment/Plan The patient is a 68M with a PMH of CVA, CAD, HTN, HLD, COPD (on 3L O2), CKD, DM , b/l LE cellulitis admitted with hypoxemia. Admitted to telemetry r/o ASHD CHF / COPD exac legs c/w cellulitis and inguinal rash with excoriations cardiology and pulmonary f/u iv steroids per pulm BGM with insulin coverage; ADA diet Iv antibiotics; ID eval ARF/CRF improved; renal f/u; labs f/u eval for h/o groin pain and rash; had scrotal US WNL in [place] recently falls DVT decubs pfx wound care d/w pt and staff;
[2018-07-13] MEDS: CLOPIDOGREL BISULFATE 75 MG TABLET (FP) PO SCH (09:50)
[2018-07-13] MEDS: CHOLECALCIFEROL (VITAMIN D3) 1,000 UNIT TABLET (FP) PO SCH (09:51)
[2018-07-13] MEDS: ASPIRIN 81 MG CHEWABLE TABLETS PO SCH (09:51)
[2018-07-13] MEDS: LACTOBACILLUS ACIDOPHILUS 1 TABLET PO SCH (09:51)
[2018-07-13] MEDS: CYANOCOBALAMIN (VITAMIN B-12) 100 MCG TABLET PO SCH (09:51)
[2018-07-13] MEDS: CITALOPRAM HYDROBROMIDE 10 MG TABLET (FP) PO SCH (09:51)
[2018-07-13] MEDS: BUDESONIDE/FORMETEROL FUMARATE 160/4.5 mcg INHALER IH SCH ×2 (09:52→21:32)
[2018-07-13] MEDS: HEPARIN NA (PORCINE) 5,000 UNITS/ML 1ML VIAL SQ SCH ×2 (09:52→21:31)
[2018-07-13] MEDS: NYSTATIN POWDER 100,000 UNITS/GM - 15 GM TOPICAL POWDER TP SCH (09:54)
--- NOTE | 2018-07-13 10:35 | PN ---
Progress Note (short form) - Note Progress Note: s: no cp, sob, palps dizzy o: Vital Signs Period Temp Pulse Resp BP Sys/Mullen Pulse Ox Last 24 Hr 97.8 F-98.6 F 53-98 16-20 117-148/41-76 95-97 Constitutional: Yes: No Distress, Calm Eyes: Yes: Conjunctiva Clear Neck: Yes: Supple, Trachea Midline Respiratory: Yes: On Nasal O2, Wheezes, Other (prolonged expiratory phase with scattered wheezes with expiration) Gastrointestinal: Yes: Normal Bowel Sounds, Soft Cardiovascular: Yes: Regular Rate and Rhythm JVD: No Heart Sounds: Yes: S1, S2 Extremities: Yes: Erythema, Other (erythema bilateral feet and ankles with weeping from wounds on R foot) Edema: Yes Edema: trace Neurological: Yes: Alert, Oriented Current Medications Generic Name Dose Route Start Last Admin Trade Name Freq PRN Reason Stop Dose Admin Acetaminophen 325 mg 07/10/18 16:42 Tylenol - PO Q12H PRN PAIN LEVEL 1 - 3 Albuterol Sulfate 1 amp 07/10/18 16:42 07/11/18 22:00 Ventolin 0.083% Nebulizer Soln - NEB 1 amp Q6H PRN Administration WHEEZING Albuterol/Ipratropium 1 amp 07/11/18 16:00 07/13/18 07:35 Duoneb - NEB 1 amp RQID [facility]JESH Administration Aspirin 81 mg 07/11/18 10:00 07/13/18 09:51 Asa - PO 81 mg DAILY [facility] Administration Budesonide/Formoterol Fumarate 1 puff 07/10/18 22:00 07/13/18 09:52 Symbicort 160/4.5mcg - IH 1 puff BID [facility] Administration Cholecalciferol 1,000 unit 07/11/18 10:00 07/13/18 09:51 Vitamin D3 - PO 1,000 unit DAILY [facility] Administration Citalopram Hydrobromide 10 mg 07/11/18 10:00 07/13/18 09:51 Celexa - PO 10 mg DAILY [facility] Administration Clopidogrel Bisulfate 75 mg 07/11/18 10:00 07/13/18 09:50 Plavix - PO 75 mg DAILY [facility] Administration Cyanocobalamin 50 mcg 07/11/18 10:00 07/13/18 09:51 Vitamin B12 - PO 50 mcg DAILY [facility] Administration Fluocinonide 1 applic 07/11/18 10:00 07/12/18 10:22 Lidex 0.05% Cream - TP 1 applic DAILY [facility] Administration Heparin Sodium (Porcine) 5,000 unit 07/10/18 22:00 07/13/18 09:52 Heparin - SQ 5,000 unit BID [facility] Administration Vancomycin HCl 1,250 mg/ 250 mls @ 250 mls/2 hr 07/13/18 00:00 07/13/18 00:35 Dextrose IVPB 250 mls/2 hr Q24H [facility] Administration Protocol Insulin Aspart 1 vial 07/10/18 22:00 07/13/18 06:38 Novolog Vial Sliding Scale - SQ 4 units ACHS [facility] Administration Protocol Insulin Detemir 5 units 07/11/18 07:00 07/13/18 06:39 Levemir Vial SQ 5 units BIDI [facility] Administration Lactic Acid 1 applic 07/11/18 10:00 07/12/18 10:22 Lac-Hydrin 12 TP 1 applic DAILY [facility] Administration Lactobacillus Acidophilus 1 tab 07/11/18 10:00 07/13/18 09:51 Bacid - PO 1 tab DAILY [facility] Administration Methylprednisolone Sodium Succinate 40 mg 07/12/18 12:15 07/13/18 09:52 Solu-Medrol - IVPUSH 40 mg Q8H-IV [facility] Administration Nystatin 1 applic 07/10/18 22:00 07/12/18 21:26 Mycostatin Cream - TP 1 applic BID [facility] Administration Nystatin 1 applic 07/11/18 10:00 07/13/18 09:54 Nystop Powder - TP 1 applic DAILY [facility] Administration CBC, BMP 07/13/18 06:00 07/13/18 06:00 Assessment/Plan echo 12/2016: nl lv/rv, mild lae, mild mr, mild-mod tr, possible mild as, mild phtn exercise mibi 01/02: no ischemia at 80% mphr cxr: no acute process EKG: sinus, LBBB, mobitz 1 (similar to prior EKG from 2016; EKG from 05/2018 sinus, 1st deg AVB, LBBB) tele: sr, mobitz I, no sig kathy/pause a/p: 68 m hx htn, hld, dm, obesity, tia 2004, lbbb, dchf/venous insuff, recurrent le cellulitis, mobitz 1 avb and first degree avb, pad s/p left fem- pop bypass, smoking, copd, here with le cellulitis, hypoxia Abnormal EKG, mobitz 1 - chronic finding, has had prior event monitors in clinic showing mobitz 1 without significant pauses - noted on prior EKGs here - avoid AV arsh blocking agents Hypoxia, COPD - denies dyspnea, sats improved - has h/o diastolic CHF however on exam appears euvolemic - exam more consistent with COPD exacerbation, pulm following, Dr. Arceo chronic venous insuff/LE edema, recurrent cellulitis: - vasc surgery/wound team consulted PAD: -prior h/o left fem-pop bypass, cont dapt, statin chronic diastolic CHF -echoes have been unremarkable or very TDS in past, most recent 12/2016 was unremarkable -would continue home torsemide when cr stable htn: -stable, controlled hld: -cont statin h/o TIA (2003): -on ASA, statin for sec prevention, cont same can dc tele
--- NOTE | 2018-07-13 11:01 | PN ---
Progress Note (short form) - Note Progress Note: Renal Follow up for THERESA Pt seen and examined at the bedside has no acute complaints denies any sob, cp, abd pain, N/V/D requesting extra bread and coffee making urine w/o difficulty Vital Signs Temperature 97.8 F 07/13/18 06:57 Pulse Rate 60 07/13/18 06:57 Respiratory Rate 18 07/13/18 06:57 Blood Pressure 148/73 07/13/18 06:57 O2 Sat by Pulse Oximetry (%) 95 07/12/18 21:00 Intake & Output 07/10/18 07/11/18 07/12/18 07/13/18 23:59 23:59 23:59 23:59 Intake Total 500 2580 250 Balance 500 2580 250 Weight 114.759 kg 104.78 kg NAD RRR, No M/R Dec BS, no rales or wheeze soft NT/ND trace edema in LE, + erythema in both legs, improved CBC, BMP 07/13/18 06:00 07/13/18 06:00 Current Medications Acetaminophen (Tylenol -) 325 mg PO Q12H PRN PRN Reason: PAIN LEVEL 1 - 3 Albuterol Sulfate (Ventolin 0.083% Nebulizer Soln -) 1 amp NEB Q6H PRN PRN Reason: WHEEZING Last Admin: 07/11/18 22:00 Dose: 1 amp Albuterol/Ipratropium (Duoneb -) [address] [facility] Last Admin: 07/13/18 07:35 Dose: 1 amp Aspirin (Asa -) [address] [facility] Last Admin: 07/13/18 09:51 Dose: 81 mg Budesonide/Formoterol Fumarate (Symbicort 160/4.5mcg -) [address] [facility] Last Admin: 07/13/18 09:52 Dose: 1 puff Cholecalciferol (Vitamin D3 -) 1,[address] [facility] Last Admin: 07/13/18 09:51 Dose: 1,000 unit Citalopram Hydrobromide (Celexa -) [address] [facility] Last Admin: 07/13/18 09:51 Dose: 10 mg Clopidogrel Bisulfate (Plavix -) [address] [facility] Last Admin: 07/13/18 09:50 Dose: 75 mg Cyanocobalamin (Vitamin B12 -) 50 mcg PO DAILY [facility] Last Admin: 07/13/18 09:51 Dose: 50 mcg Fluocinonide (Lidex 0.05% Cream -) 1 applic TP DAILY [facility] Last Admin: 07/12/18 10:22 Dose: 1 applic Heparin Sodium (Porcine) (Heparin -) 5,000 unit SQ BID [facility] Last Admin: 07/13/18 09:52 Dose: 5,000 unit Vancomycin HCl 1,250 mg/ (Dextrose) 250 mls @ 250 mls/2 hr IVPB Q24H [facility]; Protocol Last Admin: 07/13/18 00:35 Dose: 250 mls/2 hr Insulin Aspart (Novolog Vial Sliding Scale -) 1 vial SQ ACHS [facility]; Protocol Last Admin: 07/13/18 06:38 Dose: 4 units Insulin Detemir (Levemir Vial) 5 units SQ BIDI [facility] Last Admin: 07/13/18 06:39 Dose: 5 units Lactic Acid (Lac-Hydrin 12) 1 applic TP DAILY [facility] Last Admin: 07/12/18 10:22 Dose: 1 applic Lactobacillus Acidophilus (Bacid -) 1 tab PO DAILY [facility] Last Admin: 07/13/18 09:51 Dose: 1 tab Methylprednisolone Sodium Succinate (Solu-Medrol -) 40 mg IVPUSH Q8H-IV [facility] Last Admin: 07/13/18 09:52 Dose: 40 mg Nystatin (Mycostatin Cream -) 1 applic TP BID [facility] Last Admin: 07/12/18 21:26 Dose: 1 applic Nystatin (Nystop Powder -) 1 applic TP DAILY [facility] Last Admin: 07/13/18 09:54 Dose: 1 applic 68 year old gentleman with history of CVA, Hypertension, Hyperlipidemia, COPD on O2, CKD (? baseline, noted to have hx of THERESA in the past ), PVD, Heart block who presented from the [place] with hypoxia and Le cellulitis. #THERESA likely due to mild volume depletion (high BUN/Cr ratio, on diuretics, concurrent infection) #COPD exacerbation #LE cellulitis #Hypertension #Anemia #DM on insulin Renal function is improved and stable off IVF, tolerating oral diet BUN rising likely due to steroids trend renal function and electrolytes if pt develops edema can resume diuretics continue Abx as per ID, trend vanco levels Kartik Escobedo DO
[2018-07-13] MEDS ORDERED: INSULIN (NOVOLOG) ASPART 100 UNITS/ML 10ML VIAL ONE ×2 (11:26→21:01)
--- NOTE | 2018-07-13 11:39 | PN ---
Progress Note, Physician History of Present Illness: pulmonary awake,oob-chair,mildly confused,-resp distress - Current Medication List Current Medications: Active Medications Acetaminophen (Tylenol -) 325 mg PO Q12H PRN PRN Reason: PAIN LEVEL 1 - 3 Albuterol Sulfate (Ventolin 0.083% Nebulizer Soln -) 1 amp NEB Q6H PRN PRN Reason: WHEEZING Last Admin: 07/11/18 22:00 Dose: 1 amp Albuterol/Ipratropium (Duoneb -) 1 amp NEB RQID [facility] Last Admin: 07/13/18 11:37 Dose: 1 amp Aspirin (Asa -) 81 mg PO DAILY [facility] Last Admin: 07/13/18 09:51 Dose: 81 mg Budesonide/Formoterol Fumarate (Symbicort 160/4.5mcg -) 1 puff IH BID [facility] Last Admin: 07/13/18 09:52 Dose: 1 puff Cholecalciferol (Vitamin D3 -) 1,000 unit PO DAILY [facility] Last Admin: 07/13/18 09:51 Dose: 1,000 unit Citalopram Hydrobromide (Celexa -) 10 mg PO DAILY [facility] Last Admin: 07/13/18 09:51 Dose: 10 mg Clopidogrel Bisulfate (Plavix -) 75 mg PO DAILY [facility] Last Admin: 07/13/18 09:50 Dose: 75 mg Cyanocobalamin (Vitamin B12 -) 50 mcg PO DAILY [facility] Last Admin: 07/13/18 09:51 Dose: 50 mcg Fluocinonide (Lidex 0.05% Cream -) 1 applic TP DAILY [facility] Last Admin: 07/12/18 10:22 Dose: 1 applic Heparin Sodium (Porcine) (Heparin -) 5,000 unit SQ BID [facility] Last Admin: 07/13/18 09:52 Dose: 5,000 unit Vancomycin HCl 1,250 mg/ (Dextrose) 250 mls @ 250 mls/2 hr IVPB Q24H [facility]; Protocol Last Admin: 07/13/18 00:35 Dose: 250 mls/2 hr Insulin Aspart (Novolog Vial Sliding Scale -) 1 vial SQ ACHS [facility]; Protocol Last Admin: 07/13/18 06:38 Dose: 4 units Insulin Detemir (Levemir Vial) 5 units SQ BIDI [facility] Last Admin: 07/13/18 06:39 Dose: 5 units Lactic Acid (Lac-Hydrin 12) 1 applic TP DAILY [facility] Last Admin: 07/12/18 10:22 Dose: 1 applic Lactobacillus Acidophilus (Bacid -) 1 tab PO DAILY [facility] Last Admin: 07/13/18 09:51 Dose: 1 tab Methylprednisolone Sodium Succinate (Solu-Medrol -) 40 mg IVPUSH Q8H-IV [facility] Last Admin: 07/13/18 09:52 Dose: 40 mg Nystatin (Mycostatin Cream -) 1 applic TP BID [facility] Last Admin: 07/12/18 21:26 Dose: 1 applic Nystatin (Nystop Powder -) 1 applic TP DAILY [facility] Last Admin: 07/13/18 09:54 Dose: 1 applic - Objective Vital Signs: Vital Signs Temperature 97.8 F 07/13/18 06:57 Pulse Rate 60 07/13/18 06:57 Respiratory Rate 18 07/13/18 06:57 Blood Pressure 148/73 07/13/18 06:57 O2 Sat by Pulse Oximetry (%) 95 07/12/18 21:00 Constitutional: Yes: Calm, Obese Eyes: Yes: WNL HENT: Yes: WNL Neck: Yes: WNL Cardiovascular: Yes: Regular Rate and Rhythm, S1, S2 Respiratory: Yes: Diminished Gastrointestinal: Yes: Normal Bowel Sounds, Soft Extremities: Yes: Other (wrapped) Edema: Yes Labs: CBC, BMP 07/13/18 06:00 07/13/18 06:00 Problem List - Problems (1) Acute on chronic respiratory failure with hypoxia and hypercapnia Code(s): J96.21 - ACUTE AND CHRONIC RESPIRATORY FAILURE WITH HYPOXIA; J96.22 - ACUTE AND CHRONIC RESPIRATORY FAILURE WITH HYPERCAPNIA (2) Cellulitis of leg Code(s): L03.119 - CELLULITIS OF UNSPECIFIED PART OF LIMB Qualifiers: Laterality: unspecified laterality Qualified Code(s): L03.119 - Cellulitis of unspecified part of limb (3) Altered mental state Code(s): R41.82 - ALTERED MENTAL STATUS, UNSPECIFIED Qualifiers: Altered mental status type: transient alteration of awareness Qualified Code(s): R40.4 - Transient alteration of awareness (4) COPD (chronic obstructive pulmonary disease) Code(s): J44.9 - CHRONIC OBSTRUCTIVE PULMONARY DISEASE, UNSPECIFIED Qualifiers: COPD type: COPD with acute exacerbation Qualified Code(s): J44.1 - Chronic obstructive pulmonary disease with (acute) exacerbation (5) Chronic renal disease Code(s): N18.9 - CHRONIC KIDNEY DISEASE, UNSPECIFIED (6) Chronic venous stasis dermatitis of both lower extremities Code(s): I83.11 - VARICOSE VEINS OF RIGHT LOWER EXTREMITY WITH INFLAMMATION; I83.12 - VARICOSE VEINS OF LEFT LOWER EXTREMITY WITH INFLAMMATION (7) Hypoxia Code(s): R09.02 - HYPOXEMIA (8) Sleep apnea Code(s): G47.30 - SLEEP APNEA, UNSPECIFIED (9) CAD (coronary artery disease) Code(s): I25.10 - ATHSCL HEART DISEASE OF [place] CORONARY ARTERY W/O ANG PCTRS (10) COPD (chronic obstructive pulmonary disease) with chronic bronchitis Code(s): J44.9 - CHRONIC OBSTRUCTIVE PULMONARY DISEASE, UNSPECIFIED (11) Diabetes Code(s): E11.9 - TYPE 2 DIABETES MELLITUS WITHOUT COMPLICATIONS Qualifiers: Diabetes mellitus type: type 2 (12) Leg edema Code(s): R60.0 - LOCALIZED EDEMA (13) MARTIN treated with BiPAP Code(s): G47.33 - OBSTRUCTIVE SLEEP APNEA (ADULT) (PEDIATRIC) (14) Obesity Code(s): E66.9 - OBESITY, UNSPECIFIED (15) PVD (peripheral vascular disease) Code(s): I73.9 - PERIPHERAL VASCULAR DISEASE, UNSPECIFIED Assessment/Plan Assessment/Plan Acute on Chronic Hypoxic and Hypercapneic Respiratory Failure Acute COPD Exacerbation Cellulitis LV Diastolic Dysfunction HTN DM Hyperlipidemia PAD h/o CVA Smoker - antibiotics - IV medrol taper - inhaled bronchodilators standing and PRN - check ABG - O2 to keep SpO2 >85% - BiPAP as needed - smoking cessation - DVT prophylaxis DR GREEN
[2018-07-13 11:53] LABS: ANISOCYTOSIS 1+; MACROCYTOSIS 0; PLATELET ESTIMATE NORMAL
[2018-07-13] MEDS: FLUOCINONIDE 0.05% CREAM (15 GM TUBE) TP SCH (13:31)
[2018-07-13] MEDS: NYSTATIN 100,000 UNIT/GM TOPICAL CREAM 15 GM TUBE TP SCH ×2 (13:31→21:32)
[2018-07-13] MEDS: AMMONIUM LACTATE 12% LOTION 225 GM BOTTLE TP SCH (13:31)
--- NOTE | 2018-07-13 18:08 | PN ---
Progress Note (short form) - Note Progress Note: Vascular Surgery PT seen and examined. Dressings changed. Please apply xeroform with clifton for compression. Leg elevation. Teofilo Cordon DO
[2018-07-14] MEDS: methylPREDNISolone NA SUCC 40 MG/1 ML VIAL IVPUSH SCH ×3 (02:30→22:58)
[2018-07-14] MEDS: INSULIN (LEVEMIR) 100 UNITS/ML UNITS SQ SCH ×3 (06:37→22:58)
[2018-07-14] MEDS: INSULIN SLIDING SCALE (NOVOLOG) 1 VIAL SQ SCH ×5 (06:37→23:00)
[2018-07-14 08:03] LABS: ANION GAP 2 MMOL/L (8-16); BLOOD UREA NITROGEN 41 mg/dL (7-18); CHLORIDE 101 mmol/L (98-107); CO2 37 mmol/L (21-32); CREATININE 1.2 mg/dL (0.55-1.3); GLUCOSE,RANDOM 235 mg/dL (74-106); MAGNESIUM 2.6 mg/dL (1.8-2.4); PHOSPHOROUS 3.2 mg/dL (2.5-4.9); POTASSIUM 4.9 mmol/L (3.5-5.1); SODIUM 140 mmol/L (136-145)
[2018-07-14] MEDS: ALBUTEROL SO4 2.5/IPRATROPIUM 0.5 INH SOL 3 ML VIAL.NEB. NEB SCH ×4 (08:44→20:09)
--- NOTE | 2018-07-14 09:41 | PN ---
Progress Note (short form) - Note Progress Note: s: no cp, sob, palps dizzy. o: Vital Signs Period Temp Pulse Resp BP Sys/Mullen Pulse Ox Last 24 Hr 97.5 F-98.5 F 47-87 20-20 136-154/62-83 95-97 Constitutional: Yes: No Distress, Calm Eyes: Yes: Conjunctiva Clear Neck: Yes: Supple, Trachea Midline Respiratory: Yes: On Nasal O2, Wheezes, Other (prolonged expiratory phase with scattered wheezes with expiration) Gastrointestinal: Yes: Normal Bowel Sounds, Soft Cardiovascular: Yes: Regular Rate and Rhythm JVD: No Heart Sounds: Yes: S1, S2 Extremities: Yes: Erythema, Other (erythema bilateral feet, bandages bilaterally ) Edema: Yes Edema: trace Neurological: Yes: Alert, Oriented Current Medications Acetaminophen (Tylenol -) 325 mg PO Q12H PRN PRN Reason: PAIN LEVEL 1 - 3 Albuterol Sulfate (Ventolin 0.083% Nebulizer Soln -) 1 amp NEB Q6H PRN PRN Reason: WHEEZING Last Admin: 07/11/18 22:00 Dose: 1 amp Albuterol/Ipratropium (Duoneb -) 1 amp NEB RQID [facility] Last Admin: 07/14/18 08:44 Dose: 1 amp Aspirin (Asa -) 81 mg PO DAILY [facility] Last Admin: 07/13/18 09:51 Dose: 81 mg Budesonide/Formoterol Fumarate (Symbicort 160/4.5mcg -) 1 puff IH BID [facility] Last Admin: 07/13/18 21:32 Dose: 1 puff Cholecalciferol (Vitamin D3 -) 1,000 unit PO DAILY [facility] Last Admin: 07/13/18 09:51 Dose: 1,000 unit Citalopram Hydrobromide (Celexa -) 10 mg PO DAILY [facility] Last Admin: 07/13/18 09:51 Dose: 10 mg Clopidogrel Bisulfate (Plavix -) 75 mg PO DAILY [facility] Last Admin: 07/13/18 09:50 Dose: 75 mg Cyanocobalamin (Vitamin B12 -) 50 mcg PO DAILY [facility] Last Admin: 07/13/18 09:51 Dose: 50 mcg Fluocinonide (Lidex 0.05% Cream -) 1 applic TP DAILY [facility] Last Admin: 07/13/18 13:31 Dose: 1 applic Heparin Sodium (Porcine) (Heparin -) 5,000 unit SQ BID [facility] Last Admin: 07/13/18 21:31 Dose: 5,000 unit Vancomycin HCl 1,250 mg/ (Dextrose) 250 mls @ 250 mls/2 hr IVPB Q24H [facility]; Protocol Last Admin: 07/13/18 23:19 Dose: 250 mls/2 hr Insulin Aspart (Novolog Vial Sliding Scale -) 1 vial SQ ACHS [facility]; Protocol Last Admin: 07/14/18 06:37 Dose: 6 units Insulin Aspart (Novolog Vial Sliding Scale -) 1 vial SQ ACHS [facility]; Protocol Insulin Detemir (Levemir Vial) 10 units SQ BID [facility] Lactic Acid (Lac-Hydrin 12) 1 applic TP DAILY [facility] Last Admin: 07/13/18 13:31 Dose: 1 applic Lactobacillus Acidophilus (Bacid -) 1 tab PO DAILY [facility] Last Admin: 07/13/18 09:51 Dose: 1 tab Methylprednisolone Sodium Succinate (Solu-Medrol -) 40 mg IVPUSH BID [facility] Nystatin (Mycostatin Cream -) 1 applic TP BID [facility] Last Admin: 07/13/18 21:32 Dose: 1 applic Nystatin (Nystop Powder -) 1 applic TP DAILY [facility] Last Admin: 07/13/18 09:54 Dose: 1 applic Assessment/Plan echo 12/2016: nl lv/rv, mild lae, mild mr, mild-mod tr, possible mild as, mild phtn exercise mibi 01/02: no ischemia at 80% mphr cxr: no acute process EKG: sinus, LBBB, mobitz 1 (similar to prior EKG from 2016; EKG from 05/2018 sinus, 1st deg AVB, LBBB) tele: sr, mobitz I, no sig kathy/pause a/p: 68 m hx htn, hld, dm, obesity, tia 2004, lbbb, dchf/venous insuff, recurrent le cellulitis, mobitz 1 avb and first degree avb, pad s/p left fem- pop bypass, smoking, copd, here with le cellulitis, hypoxia Abnormal EKG, mobitz 1 - chronic finding, has had prior event monitors in clinic showing mobitz 1 without significant pauses - noted on prior EKGs here - avoid AV arsh blocking agents - stable, would DC tele Hypoxia, COPD - denies dyspnea, sats improved - has h/o diastolic CHF however on exam appears euvolemic - exam more consistent with COPD exacerbation, pulm following, Dr. Arceo chronic venous insuff/LE edema, recurrent cellulitis: - vasc surgery, Dr. Cordon/wound team consulted - on IV abx PAD: -prior h/o left fem-pop bypass, cont dapt, statin chronic diastolic CHF -echoes have been unremarkable or very TDS in past, most recent 12/2016 was unremarkable -would continue home torsemide when cr stable htn: -stable, controlled hld: -cont statin h/o TIA (2003): -on ASA, statin for sec prevention, cont same D/C TELE
[2018-07-14] MEDS ORDERED: PT OWN MED DRAWER 7, Y5N ONE ×3 (10:29→12:55)
[2018-07-14] MEDS: LACTOBACILLUS ACIDOPHILUS 1 TABLET PO SCH (10:57)
[2018-07-14] MEDS: NYSTATIN 100,000 UNIT/GM TOPICAL CREAM 15 GM TUBE TP SCH ×2 (10:58→23:00)
[2018-07-14] MEDS: CITALOPRAM HYDROBROMIDE 10 MG TABLET (FP) PO SCH (10:58)
[2018-07-14] MEDS: CYANOCOBALAMIN (VITAMIN B-12) 100 MCG TABLET PO SCH (10:58)
[2018-07-14] MEDS: NYSTATIN POWDER 100,000 UNITS/GM - 15 GM TOPICAL POWDER TP SCH (10:58)
[2018-07-14] MEDS: CLOPIDOGREL BISULFATE 75 MG TABLET (FP) PO SCH (10:58)
[2018-07-14] MEDS: ASPIRIN 81 MG CHEWABLE TABLETS PO SCH (10:58)
[2018-07-14] MEDS: BUDESONIDE/FORMETEROL FUMARATE 160/4.5 mcg INHALER IH SCH (10:58)
[2018-07-14] MEDS: CHOLECALCIFEROL (VITAMIN D3) 1,000 UNIT TABLET (FP) PO SCH (10:58)
[2018-07-14] MEDS: HEPARIN NA (PORCINE) 5,000 UNITS/ML 1ML VIAL SQ SCH ×2 (10:59→22:58)
[2018-07-14] MEDS: AMMONIUM LACTATE 12% LOTION 225 GM BOTTLE TP SCH (10:59)
[2018-07-14] MEDS: FLUOCINONIDE 0.05% CREAM (15 GM TUBE) TP SCH (10:59)
--- NOTE | 2018-07-14 11:10 | PN ---
Progress Note, Physician History of Present Illness: pulmonary alert,less congested,less confused - Current Medication List Current Medications: Active Medications Acetaminophen (Tylenol -) 325 mg PO Q12H PRN PRN Reason: PAIN LEVEL 1 - 3 Albuterol Sulfate (Ventolin 0.083% Nebulizer Soln -) 1 amp NEB Q6H PRN PRN Reason: WHEEZING Last Admin: 07/11/18 22:00 Dose: 1 amp Albuterol/Ipratropium (Duoneb -) 1 amp NEB RQID [facility] Last Admin: 07/14/18 08:44 Dose: 1 amp Aspirin (Asa -) 81 mg PO DAILY [facility] Last Admin: 07/14/18 10:58 Dose: 81 mg Budesonide/Formoterol Fumarate (Symbicort 160/4.5mcg -) 1 puff IH BID [facility] Last Admin: 07/14/18 10:58 Dose: 1 puff Cholecalciferol (Vitamin D3 -) 1,000 unit PO DAILY [facility] Last Admin: 07/14/18 10:58 Dose: 1,000 unit Citalopram Hydrobromide (Celexa -) 10 mg PO DAILY [facility] Last Admin: 07/14/18 10:58 Dose: 10 mg Clopidogrel Bisulfate (Plavix -) 75 mg PO DAILY [facility] Last Admin: 07/14/18 10:58 Dose: 75 mg Cyanocobalamin (Vitamin B12 -) 50 mcg PO DAILY [facility] Last Admin: 07/14/18 10:58 Dose: 50 mcg Fluocinonide (Lidex 0.05% Cream -) 1 applic TP DAILY [facility] Last Admin: 07/14/18 10:59 Dose: 1 applic Heparin Sodium (Porcine) (Heparin -) 5,000 unit SQ BID [facility] Last Admin: 07/14/18 10:59 Dose: 5,000 unit Vancomycin HCl 1,250 mg/ (Dextrose) 250 mls @ 250 mls/2 hr IVPB Q24H [facility]; Protocol Last Admin: 07/13/18 23:19 Dose: 250 mls/2 hr Insulin Aspart (Novolog Vial Sliding Scale -) 1 vial SQ [facility]; Protocol Last Admin: 07/14/18 06:37 Dose: 6 units Insulin Aspart (Novolog Vial Sliding Scale -) 1 vial SQ [facility]; Protocol Insulin Detemir (Levemir Vial) 10 units SQ BID@0700,2200 [facility] Last Admin: 07/14/18 11:04 Dose: 10 units Lactic Acid (Lac-Hydrin 12) 1 applic TP DAILY [facility] Last Admin: 07/14/18 10:59 Dose: 1 applic Lactobacillus Acidophilus (Bacid -) 1 tab PO DAILY [facility] Last Admin: 07/14/18 10:57 Dose: 1 tab Methylprednisolone Sodium Succinate (Solu-Medrol -) 40 mg IVPUSH BID [facility] Last Admin: 07/14/18 10:58 Dose: 40 mg Nystatin (Mycostatin Cream -) 1 applic TP BID [facility] Last Admin: 07/14/18 10:58 Dose: 1 applic Nystatin (Nystop Powder -) 1 applic TP DAILY [facility] Last Admin: 07/14/18 10:58 Dose: 1 applic - Objective Vital Signs: Vital Signs Temperature 97.5 F L 07/14/18 02:00 Pulse Rate 87 07/14/18 02:00 Respiratory Rate 20 07/14/18 02:00 Blood Pressure 154/83 07/14/18 02:00 O2 Sat by Pulse Oximetry (%) 97 07/13/18 22:00 Constitutional: Yes: Well Nourished, Calm, Obese Eyes: Yes: WNL HENT: Yes: WNL Neck: Yes: WNL Cardiovascular: Yes: Regular Rate and Rhythm, S1, S2 Respiratory: Yes: Diminished, Rhonchi (few scattered rhonchi) Gastrointestinal: Yes: Normal Bowel Sounds, Soft Extremities: Yes: WNL Edema: Yes Labs: 07/14/18 06:00 Problem List - Problems (1) Acute on chronic respiratory failure with hypoxia and hypercapnia Code(s): J96.21 - ACUTE AND CHRONIC RESPIRATORY FAILURE WITH HYPOXIA; J96.22 - ACUTE AND CHRONIC RESPIRATORY FAILURE WITH HYPERCAPNIA (2) Cellulitis of leg Code(s): L03.119 - CELLULITIS OF UNSPECIFIED PART OF LIMB Qualifiers: Laterality: unspecified laterality Qualified Code(s): L03.119 - Cellulitis of unspecified part of limb (3) Altered mental state Code(s): R41.82 - ALTERED MENTAL STATUS, UNSPECIFIED Qualifiers: Altered mental status type: transient alteration of awareness Qualified Code(s): R40.4 - Transient alteration of awareness (4) COPD (chronic obstructive pulmonary disease) Code(s): J44.9 - CHRONIC OBSTRUCTIVE PULMONARY DISEASE, UNSPECIFIED Qualifiers: COPD type: COPD with acute exacerbation Qualified Code(s): J44.1 - Chronic obstructive pulmonary disease with (acute) exacerbation (5) Chronic renal disease Code(s): N18.9 - CHRONIC KIDNEY DISEASE, UNSPECIFIED (6) Chronic venous stasis dermatitis of both lower extremities Code(s): I83.11 - VARICOSE VEINS OF RIGHT LOWER EXTREMITY WITH INFLAMMATION; I83.12 - VARICOSE VEINS OF LEFT LOWER EXTREMITY WITH INFLAMMATION (7) Hypoxia Code(s): R09.02 - HYPOXEMIA (8) Sleep apnea Code(s): G47.30 - SLEEP APNEA, UNSPECIFIED (9) CAD (coronary artery disease) Code(s): I25.10 - ATHSCL HEART DISEASE OF [place] CORONARY ARTERY W/O ANG PCTRS (10) COPD (chronic obstructive pulmonary disease) with chronic bronchitis Code(s): J44.9 - CHRONIC OBSTRUCTIVE PULMONARY DISEASE, UNSPECIFIED (11) Diabetes Code(s): E11.9 - TYPE 2 DIABETES MELLITUS WITHOUT COMPLICATIONS Qualifiers: Diabetes mellitus type: type 2 (12) Leg edema Code(s): R60.0 - LOCALIZED EDEMA (13) MARTIN treated with BiPAP Code(s): G47.33 - OBSTRUCTIVE SLEEP APNEA (ADULT) (PEDIATRIC) (14) Obesity Code(s): E66.9 - OBESITY, UNSPECIFIED (15) PVD (peripheral vascular disease) Code(s): I73.9 - PERIPHERAL VASCULAR DISEASE, UNSPECIFIED Assessment/Plan Assessment/Plan Acute on Chronic Hypoxic and Hypercapneic Respiratory Failure Acute COPD Exacerbation slowly improving Cellulitis LV Diastolic Dysfunction HTN DM Hyperlipidemia PAD h/o CVA Smoker - antibiotics - IV medrol - inhaled bronchodilators standing and PRN - O2 to keep SpO2 >85% - BiPAP as needed - smoking cessation - DVT prophylaxis DR GREEN
--- NOTE | 2018-07-14 12:13 | PN ---
Progress Note (short form) - Note Progress Note: covering dr krishna problems -THERESA / volume depletion -COPD exacerbation, hypoxia -LE cellulitis -Hypertension -Anemia -DM on insulin pmhx- history of CVA, Hypertension, Hyperlipidemia, COPD on O2, CKD, PVD, Heart block Current Medications Acetaminophen (Tylenol -) 325 mg PO Q12H PRN PRN Reason: PAIN LEVEL 1 - 3 Albuterol Sulfate (Ventolin 0.083% Nebulizer Soln -) 1 amp NEB Q6H PRN PRN Reason: WHEEZING Last Admin: 07/11/18 22:00 Dose: 1 amp Albuterol/Ipratropium (Duoneb -) 1 amp NEB RQID [facility] Last Admin: 07/14/18 12:18 Dose: 1 amp Aspirin (Asa -) 81 mg PO DAILY [facility] Last Admin: 07/14/18 10:58 Dose: 81 mg Budesonide/Formoterol Fumarate (Symbicort 160/4.5mcg -) 1 puff IH BID [facility] Last Admin: 07/14/18 10:58 Dose: 1 puff Cholecalciferol (Vitamin D3 -) 1,000 unit PO DAILY [facility] Last Admin: 07/14/18 10:58 Dose: 1,000 unit Citalopram Hydrobromide (Celexa -) 10 mg PO DAILY [facility] Last Admin: 07/14/18 10:58 Dose: 10 mg Clopidogrel Bisulfate (Plavix -) 75 mg PO DAILY [facility] Last Admin: 07/14/18 10:58 Dose: 75 mg Cyanocobalamin (Vitamin B12 -) 50 mcg PO DAILY [facility] Last Admin: 07/14/18 10:58 Dose: 50 mcg Fluocinonide (Lidex 0.05% Cream -) 1 applic TP DAILY [facility] Last Admin: 07/14/18 10:59 Dose: 1 applic Heparin Sodium (Porcine) (Heparin -) 5,000 unit SQ BID [facility] Last Admin: 07/14/18 10:59 Dose: 5,000 unit Vancomycin HCl 1,250 mg/ (Dextrose) 250 mls @ 250 mls/2 hr IVPB Q24H [facility]; Protocol Last Admin: 07/13/18 23:19 Dose: 250 mls/2 hr Insulin Aspart (Novolog Vial Sliding Scale -) 1 vial SQ ACHS [facility]; Protocol Insulin Detemir (Levemir Vial) 10 units SQ BID@0700,2200 [facility] Last Admin: 07/14/18 11:04 Dose: 10 units Lactic Acid (Lac-Hydrin 12) 1 applic TP DAILY [facility] Last Admin: 07/14/18 10:59 Dose: 1 applic Lactobacillus Acidophilus (Bacid -) 1 tab PO DAILY [facility] Last Admin: 07/14/18 10:57 Dose: 1 tab Methylprednisolone Sodium Succinate (Solu-Medrol -) 40 mg IVPUSH BID [facility] Last Admin: 07/14/18 10:58 Dose: 40 mg Nystatin (Mycostatin Cream -) 1 applic TP BID [facility] Last Admin: 07/14/18 10:58 Dose: 1 applic Nystatin (Nystop Powder -) 1 applic TP DAILY [facility] Last Admin: 07/14/18 10:58 Dose: 1 applic Last Vital Signs Temp Pulse Resp BP Pulse Ox 98.0 F 78 20 159/65 97 07/14/18 10:00 07/14/18 10:00 07/14/18 10:00 07/14/18 10:00 07/13/18 22:00 lungs clear heart reg abd soft nontender ext edema wrapped CBC, BMP 07/13/18 06:00 07/14/18 06:00 IMP- Prerenal azotemia ( steroids ) underlying ckd renal function stable High BUN from diuretics and steroids Plan- ensure hydration monitor labs
--- NOTE | 2018-07-14 14:48 | PN ---
Progress Note, Physician History of Present Illness: Pt w/o fever, chills, SOB, CP, palp, dizziness, abd pain. Pt with feet pain, R > L - Current Medication List Current Medications: Active Medications Acetaminophen (Tylenol -) 325 mg PO Q12H PRN PRN Reason: PAIN LEVEL 1 - 3 Albuterol Sulfate (Ventolin 0.083% Nebulizer Soln -) 1 amp NEB Q6H PRN PRN Reason: WHEEZING Last Admin: 07/11/18 22:00 Dose: 1 amp Albuterol/Ipratropium (Duoneb -) 1 amp NEB RQID [facility] Last Admin: 07/14/18 12:18 Dose: 1 amp Aspirin (Asa -) 81 mg PO DAILY [facility] Last Admin: 07/14/18 10:58 Dose: 81 mg Budesonide/Formoterol Fumarate (Symbicort 160/4.5mcg -) 1 puff IH BID [facility] Last Admin: 07/14/18 10:58 Dose: 1 puff Cholecalciferol (Vitamin D3 -) 1,000 unit PO DAILY [facility] Last Admin: 07/14/18 10:58 Dose: 1,000 unit Citalopram Hydrobromide (Celexa -) 10 mg PO DAILY [facility] Last Admin: 07/14/18 10:58 Dose: 10 mg Clopidogrel Bisulfate (Plavix -) 75 mg PO DAILY [facility] Last Admin: 07/14/18 10:58 Dose: 75 mg Cyanocobalamin (Vitamin B12 -) 50 mcg PO DAILY [facility] Last Admin: 07/14/18 10:58 Dose: 50 mcg Fluocinonide (Lidex 0.05% Cream -) 1 applic TP DAILY [facility] Last Admin: 07/14/18 10:59 Dose: 1 applic Heparin Sodium (Porcine) (Heparin -) 5,000 unit SQ BID [facility] Last Admin: 07/14/18 10:59 Dose: 5,000 unit Vancomycin HCl 1,250 mg/ (Dextrose) 250 mls @ 250 mls/2 hr IVPB Q24H [facility]; Protocol Last Admin: 07/13/18 23:19 Dose: 250 mls/2 hr Insulin Aspart (Novolog Vial Sliding Scale -) 1 vial SQ ACHS [facility]; Protocol Last Admin: 07/14/18 13:13 Dose: 4 units Insulin Detemir (Levemir Vial) 10 units SQ BID@0700,2200 [facility] Last Admin: 07/14/18 11:04 Dose: 10 units Lactic Acid (Lac-Hydrin 12) 1 applic TP DAILY [facility] Last Admin: 07/14/18 10:59 Dose: 1 applic Lactobacillus Acidophilus (Bacid -) 1 tab PO DAILY [facility] Last Admin: 07/14/18 10:57 Dose: 1 tab Methylprednisolone Sodium Succinate (Solu-Medrol -) 40 mg IVPUSH BID [facility] Last Admin: 07/14/18 10:58 Dose: 40 mg Nystatin (Mycostatin Cream -) 1 applic TP BID [facility] Last Admin: 07/14/18 10:58 Dose: 1 applic Nystatin (Nystop Powder -) 1 applic TP DAILY [facility] Last Admin: 07/14/18 10:58 Dose: 1 applic - Objective Vital Signs: Vital Signs Temperature 98.3 F 07/14/18 14:47 Pulse Rate 71 07/14/18 14:47 Respiratory Rate 20 07/14/18 14:47 Blood Pressure 149/73 07/14/18 14:47 O2 Sat by Pulse Oximetry (%) 97 07/13/18 22:00 Constitutional: Yes: No Distress, Calm Cardiovascular: Yes: Regular Rate and Rhythm, S1, S2 Respiratory: Yes: Regular, CTA Bilaterally, Rales (at bases) Gastrointestinal: Yes: Normal Bowel Sounds, Soft. No: Tenderness Extremities: Yes: Other (LE with erythema, excoriations, chronic venous stasis changes) Labs: CBC, BMP 07/13/18 06:00 07/14/18 06:00 Problem List - Problems (1) COPD with acute exacerbation Code(s): J44.1 - CHRONIC OBSTRUCTIVE PULMONARY DISEASE W (ACUTE) EXACERBATION (2) Cellulitis of leg Code(s): L03.119 - CELLULITIS OF UNSPECIFIED PART OF LIMB Qualifiers: Laterality: unspecified laterality Qualified Code(s): L03.119 - Cellulitis of unspecified part of limb (3) THERESA (acute kidney injury) Code(s): N17.9 - ACUTE KIDNEY FAILURE, UNSPECIFIED (4) Karla rash of groin Code(s): B37.89 - OTHER SITES OF CANDIDIASIS (5) CHF (congestive heart failure) Code(s): I50.9 - HEART FAILURE, UNSPECIFIED (6) Acute on chronic respiratory failure with hypoxia and hypercapnia Code(s): J96.21 - ACUTE AND CHRONIC RESPIRATORY FAILURE WITH HYPOXIA; J96.22 - ACUTE AND CHRONIC RESPIRATORY FAILURE WITH HYPERCAPNIA (7) Diabetes mellitus, insulin dependent (IDDM), uncontrolled Code(s): E10.65 - TYPE 1 DIABETES MELLITUS WITH HYPERGLYCEMIA (8) Leg edema Code(s): R60.0 - LOCALIZED EDEMA (9) MARTIN treated with BiPAP Code(s): G47.33 - OBSTRUCTIVE SLEEP APNEA (ADULT) (PEDIATRIC) (10) PVD (peripheral vascular disease) Code(s): I73.9 - PERIPHERAL VASCULAR DISEASE, UNSPECIFIED Assessment/Plan Pt on IV abtx- to f/u with ID Pt on IV steroids- to decrease dose. Cont BIPAP- benefits were reviewed ID, Pulmonary, Cardio, Renal consults are appreciated. AM labs
--- NOTE | 2018-07-14 15:26 | CONS ---
DATE OF CONSULTATION: 07/11/2018 REQUESTING PHYSICIAN: Noemy Valle MD This is a 68-year-old man who I know well from prior admissions. He has a history of COPD, is on oxygen at home, as well as BiPAP practically all the time he is at home. He has a history of bilateral venous stasis and recurrent cellulitis of his legs. He is colonized with MRSA. He came to the emergency room on the 18 because he was noted to be hypoxic. He had no complaints in the ER and was noted to have cellulitis of his legs and inguinal rash and was admitted for that. He is felt to be at his baseline from a pulmonary standpoint. He is currently resting comfortably. He has had no fevers, and he has complaints that the inguinal rash is painful. He lives at home. He does not wear Depends. He wears underwear that he reports chafes his legs and creates a lot of discomfort. He is often incontinent. PAST MEDICAL HISTORY: Notable for a CVA, CAD, hypertension, hyperlipidemia; COPD, oxygen dependent; chronic respiratory failure on BiPAP. He has a history of CKD, bilateral venous stasis and cellulitis, diabetes. He has a history of MRSA. Cardiac history is notable for stent. SOCIAL HISTORY: He currently does not smoke. There is no history of any substance use. He lives with his spouse, and he is currently not working. REVIEW OF SYSTEMS: He has had a marked weight loss. ALLERGIES: He is allergic to AUGMENTIN; nature of allergy is not known. He tolerates cephalosporins which he has received in the past. MEDICATIONS: His medications at home include Demadex, Spiriva, nystatin powder, acidophilus, insulin, Lidex, B12, Plavix, Celexa, Symbicort, aspirin. REVIEW OF SYSTEMS: As per HPI. PHYSICAL EXAMINATION: General: He is awake and alert, no acute distress. Vital Signs: Temperature is 98, pulse is 78, blood pressure 159/65, respiratory rate is 20. HEENT: He is normocephalic. His eyes are anicteric. Neck: Supple. Lungs: Clear to auscultation. Heart: Regular rate and rhythm. Abdomen: Soft, nontender. Extremities: We unwrapped his legs. He has bilateral venous stasis with some patchy erythema. He has bilateral inguinal rash as well. SUMMARY: This is a 68-year-old man with chronic obstructive pulmonary disease on oxygen, bilateral positive airway pressure at home, chronic leg wounds, venous stasis, admitted for worsening of the legs and history of methicillin-resistant Staphylococcus aureus. I would recommend we continue vancomycin. Wound Care should see him, and we should do an antifungal ointment for the groin rash. Suspect in 48-72 hours he should be improved. Further recommendations to follow. HUNTER STRAUSS M.D. [id number]
[2018-07-15] MEDS: VANCOMYCIN 1,250 MG in DEXTROSE 5%-WATER - 250 ML IVPB SCH (00:52)
[2018-07-15] MEDS: BUDESONIDE/FORMETEROL FUMARATE 160/4.5 mcg INHALER IH SCH ×3 (00:52→21:37)
[2018-07-15] MEDS ORDERED: PT OWN MED DRAWER 7, Y5N ONE ×2 (01:00→22:35)
[2018-07-15] MEDS: INSULIN SLIDING SCALE (NOVOLOG) 1 VIAL SQ SCH ×4 (06:15→22:33)
[2018-07-15] MEDS: INSULIN (LEVEMIR) 100 UNITS/ML UNITS SQ SCH ×2 (06:15→22:31)
[2018-07-15] MEDS: ALBUTEROL SO4 2.5/IPRATROPIUM 0.5 INH SOL 3 ML VIAL.NEB. NEB SCH ×4 (08:11→21:05)
[2018-07-15 08:27] LABS: ALBUMIN 2.5 g/dl (3.4-5.0); ALK PHOS 49 U/L (45-117); ANION GAP 6 MMOL/L (8-16); BILIRUBIN,TOTAL 0.3 mg/dL (0.2-1); BLOOD UREA NITROGEN 35 mg/dL (7-18); CALCIUM 8.3 mg/dL (8.5-10.1); CHLORIDE 101 mmol/L (98-107); CO2 36 mmol/L (21-32); CREATININE 1.1 mg/dL (0.55-1.3); GLUCOSE,RANDOM 160 mg/dL (74-106); POTASSIUM 5.2 mmol/L (3.5-5.1); SGOT/AST 6 U/L (15-37); SGPT/ALT 12 U/L (13-61); SODIUM 143 mmol/L (136-145)
[2018-07-15 09:25] LABS: BASO % 0.2 % (0-2.0); HEMATOCRIT 35.5 % (35.4-49); HEMOGLOBIN 10.9 GM/dL (11.7-16.9); LYMPH % 2.9 % (8-40); MCHC 30.6 g/dl (32.0-35.9); MEAN CELL VOLUME 75.1 fl (80-96); MEAN PLT VOLUME 7.6 fl (7.5-11.1); MONO % 2.6 % (3.8-10.2); NEUT % 94.3 % (42.8-82.8); PLATELET COUNT 219 K/MM3 (134-434); RBC 4.73 M/mm3 (4.00-5.60); WHITE BLOOD COUNT 7.9 K/mm3 (4.0-10.0)
--- NOTE | 2018-07-15 10:07 | PN ---
Progress Note (short form) - Note Progress Note: s: no cp, sob, palps dizzy. no events o: Vital Signs Period Temp Pulse Resp BP Sys/Mullen Pulse Ox Last 24 Hr 97.8 F-98.4 F 69-71 20-20 149-159/2-82 95-97 Constitutional: Yes: No Distress, Calm Eyes: Yes: Conjunctiva Clear Neck: Yes: Supple, Trachea Midline Respiratory: Yes: On Nasal O2, Wheezes, Other (prolonged expiratory phase with scattered wheezes with expiration) Gastrointestinal: Yes: Normal Bowel Sounds, Soft Cardiovascular: Yes: Regular Rate and Rhythm JVD: No Heart Sounds: Yes: S1, S2 Extremities: Yes: Erythema, Other (erythema bilateral feet, bandages bilaterally ) Edema: Yes Edema: trace Neurological: Yes: Alert, Oriented Current Medications Acetaminophen (Tylenol -) 325 mg PO Q12H PRN PRN Reason: PAIN LEVEL 1 - 3 Albuterol Sulfate (Ventolin 0.083% Nebulizer Soln -) 1 amp NEB Q6H PRN PRN Reason: WHEEZING Last Admin: 07/11/18 22:00 Dose: 1 amp Albuterol/Ipratropium (Duoneb -) 1 amp NEB RQID [facility] Last Admin: 07/15/18 08:11 Dose: 1 amp Aspirin (Asa -) 81 mg PO DAILY [facility] Last Admin: 07/14/18 10:58 Dose: 81 mg Budesonide/Formoterol Fumarate (Symbicort 160/4.5mcg -) 1 puff IH BID [facility] Last Admin: 07/15/18 00:52 Dose: 1 puff Cholecalciferol (Vitamin D3 -) 1,000 unit PO DAILY [facility] Last Admin: 07/14/18 10:58 Dose: 1,000 unit Citalopram Hydrobromide (Celexa -) 10 mg PO DAILY [facility] Last Admin: 07/14/18 10:58 Dose: 10 mg Clopidogrel Bisulfate (Plavix -) 75 mg PO DAILY [facility] Last Admin: 07/14/18 10:58 Dose: 75 mg Cyanocobalamin (Vitamin B12 -) 50 mcg PO DAILY [facility] Last Admin: 07/14/18 10:58 Dose: 50 mcg Fluocinonide (Lidex 0.05% Cream -) 1 applic TP DAILY [facility] Last Admin: 07/14/18 10:59 Dose: 1 applic Heparin Sodium (Porcine) (Heparin -) 5,000 unit SQ BID [facility] Last Admin: 07/14/18 22:58 Dose: 5,000 unit Vancomycin HCl 1,250 mg/ (Dextrose) 250 mls @ 250 mls/2 hr IVPB Q24H [facility]; Protocol Last Admin: 07/15/18 00:52 Dose: 250 mls/2 hr Insulin Aspart (Novolog Vial Sliding Scale -) 1 vial SQ ACHS [facility]; Protocol Last Admin: 07/15/18 06:15 Dose: 2 units Insulin Detemir (Levemir Vial) 10 units SQ BID@0700,2200 [facility] Last Admin: 07/15/18 06:15 Dose: 10 units Lactic Acid (Lac-Hydrin 12) 1 applic TP DAILY [facility] Last Admin: 07/14/18 10:59 Dose: 1 applic Lactobacillus Acidophilus (Bacid -) 1 tab PO DAILY [facility] Last Admin: 07/14/18 10:57 Dose: 1 tab Methylprednisolone Sodium Succinate (Solu-Medrol -) 40 mg IVPUSH BID [facility] Last Admin: 07/14/18 22:58 Dose: 40 mg Nystatin (Mycostatin Cream -) 1 applic TP BID [facility] Last Admin: 07/14/18 23:00 Dose: 1 applic Nystatin (Nystop Powder -) 1 applic TP DAILY [facility] Last Admin: 07/14/18 10:58 Dose: 1 applic Assessment/Plan echo 12/2016: nl lv/rv, mild lae, mild mr, mild-mod tr, possible mild as, mild phtn exercise mibi 01/02: no ischemia at 80% mphr cxr: no acute process EKG: sinus, LBBB, mobitz 1 (similar to prior EKG from 2017; EKG from 05/2018 sinus, 1st deg AVB, LBBB) a/p: 68 m hx htn, hld, dm, obesity, tia 2004, lbbb, dchf/venous insuff, recurrent le cellulitis, mobitz 1 avb and first degree avb, pad s/p left fem- pop bypass, smoking, copd, here with le cellulitis, hypoxia Abnormal EKG, mobitz 1 - chronic finding, has had prior event monitors in clinic showing mobitz 1 without significant pauses - noted on prior EKGs here - avoid AV arsh blocking agents - stable from cardiac perspective Hypoxia, COPD - denies dyspnea, sats improved - has h/o diastolic CHF however on exam appears euvolemic - exam more consistent with COPD exacerbation, pulm following chronic venous insuff/LE edema, recurrent cellulitis: - vasc surgery, Dr. Cordon/wound team consulted - on IV abx PAD: -prior h/o left fem-pop bypass, cont dapt, statin chronic diastolic CHF -echoes have been unremarkable or very TDS in past, most recent 12/2016 was unremarkable -holding home torsemide, Cr improved, euvolemic htn: -stable, controlled hld: -cont statin h/o TIA (2003): -on ASA, statin for sec prevention, cont same
[2018-07-15] MEDS: ASPIRIN 81 MG CHEWABLE TABLETS PO SCH (11:00)
[2018-07-15] MEDS: LACTOBACILLUS ACIDOPHILUS 1 TABLET PO SCH (11:00)
[2018-07-15] MEDS: CHOLECALCIFEROL (VITAMIN D3) 1,000 UNIT TABLET (FP) PO SCH (11:00)
[2018-07-15] MEDS: CITALOPRAM HYDROBROMIDE 10 MG TABLET (FP) PO SCH (11:00)
[2018-07-15] MEDS: HEPARIN NA (PORCINE) 5,000 UNITS/ML 1ML VIAL SQ SCH ×2 (11:00→21:37)
[2018-07-15] MEDS: methylPREDNISolone NA SUCC 40 MG/1 ML VIAL IVPUSH SCH ×2 (11:00→21:37)
[2018-07-15] MEDS: CLOPIDOGREL BISULFATE 75 MG TABLET (FP) PO SCH (11:00)
[2018-07-15] MEDS: CYANOCOBALAMIN (VITAMIN B-12) 100 MCG TABLET PO SCH (11:00)
[2018-07-15] MEDS: NYSTATIN POWDER 100,000 UNITS/GM - 15 GM TOPICAL POWDER TP SCH (11:01)
[2018-07-15] MEDS: AMMONIUM LACTATE 12% LOTION 225 GM BOTTLE TP SCH (11:01)
[2018-07-15] MEDS: FLUOCINONIDE 0.05% CREAM (15 GM TUBE) TP SCH (11:01)
[2018-07-15] MEDS: NYSTATIN 100,000 UNIT/GM TOPICAL CREAM 15 GM TUBE TP SCH ×2 (11:01→22:31)
--- NOTE | 2018-07-15 12:07 | PN ---
Progress Note, Physician History of Present Illness: pulmonary alert,mildly confused,less dyspneic - Current Medication List Current Medications: Active Medications Acetaminophen (Tylenol -) 325 mg PO Q12H PRN PRN Reason: PAIN LEVEL 1 - 3 Albuterol Sulfate (Ventolin 0.083% Nebulizer Soln -) 1 amp NEB Q6H PRN PRN Reason: WHEEZING Last Admin: 07/11/18 22:00 Dose: 1 amp Albuterol/Ipratropium (Duoneb -) 1 amp NEB RQID [facility] Last Admin: 07/15/18 12:02 Dose: 1 amp Aspirin (Asa -) 81 mg PO DAILY [facility] Last Admin: 07/15/18 11:00 Dose: 81 mg Budesonide/Formoterol Fumarate (Symbicort 160/4.5mcg -) 1 puff IH BID [facility] Last Admin: 07/15/18 11:02 Dose: 1 puff Cholecalciferol (Vitamin D3 -) 1,000 unit PO DAILY [facility] Last Admin: 07/15/18 11:00 Dose: 1,000 unit Citalopram Hydrobromide (Celexa -) 10 mg PO DAILY [facility] Last Admin: 07/15/18 11:00 Dose: 10 mg Clopidogrel Bisulfate (Plavix -) 75 mg PO DAILY [facility] Last Admin: 07/15/18 11:00 Dose: 75 mg Cyanocobalamin (Vitamin B12 -) 50 mcg PO DAILY [facility] Last Admin: 07/15/18 11:00 Dose: 50 mcg Fluocinonide (Lidex 0.05% Cream -) 1 applic TP DAILY [facility] Last Admin: 07/15/18 11:01 Dose: 1 applic Heparin Sodium (Porcine) (Heparin -) 5,000 unit SQ BID [facility] Last Admin: 07/15/18 11:00 Dose: 5,000 unit Vancomycin HCl 1,250 mg/ (Dextrose) 250 mls @ 250 mls/2 hr IVPB Q24H [facility]; Protocol Last Admin: 07/15/18 00:52 Dose: 250 mls/2 hr Insulin Aspart (Novolog Vial Sliding Scale -) 1 vial SQ ACHS [facility]; Protocol Last Admin: 07/15/18 11:04 Dose: Not Given Insulin Detemir (Levemir Vial) 10 units SQ BID@0700,2200 [facility] Last Admin: 07/15/18 06:15 Dose: 10 units Lactic Acid (Lac-Hydrin 12) 1 applic TP DAILY [facility] Last Admin: 07/15/18 11:01 Dose: 1 applic Lactobacillus Acidophilus (Bacid -) 1 tab PO DAILY [facility] Last Admin: 07/15/18 11:00 Dose: 1 tab Methylprednisolone Sodium Succinate (Solu-Medrol -) 40 mg IVPUSH BID [facility] Last Admin: 07/15/18 11:00 Dose: 40 mg Nystatin (Mycostatin Cream -) 1 applic TP BID [facility] Last Admin: 07/15/18 11:01 Dose: 1 applic Nystatin (Nystop Powder -) 1 applic TP DAILY [facility] Last Admin: 07/15/18 11:01 Dose: 1 applic - Objective Vital Signs: Vital Signs Temperature 97.8 F 07/15/18 06:00 Pulse Rate 69 07/15/18 06:00 Respiratory Rate 20 07/15/18 06:00 Blood Pressure 159/82 07/15/18 06:00 O2 Sat by Pulse Oximetry (%) 96 07/15/18 08:10 Constitutional: Yes: Well Nourished, Calm Eyes: Yes: WNL HENT: Yes: WNL Neck: Yes: WNL Cardiovascular: Yes: Regular Rate and Rhythm, S1, S2 Respiratory: Yes: Rhonchi (few rhonchi) Gastrointestinal: Yes: Normal Bowel Sounds, Soft Extremities: Yes: Other (wrapped) Edema: Yes Labs: CBC, BMP 07/15/18 06:00 07/15/18 06:00 Problem List - Problems (1) Acute on chronic respiratory failure with hypoxia and hypercapnia Code(s): J96.21 - ACUTE AND CHRONIC RESPIRATORY FAILURE WITH HYPOXIA; J96.22 - ACUTE AND CHRONIC RESPIRATORY FAILURE WITH HYPERCAPNIA (2) Cellulitis of leg Code(s): L03.119 - CELLULITIS OF UNSPECIFIED PART OF LIMB Qualifiers: Laterality: unspecified laterality Qualified Code(s): L03.119 - Cellulitis of unspecified part of limb (3) Altered mental state Code(s): R41.82 - ALTERED MENTAL STATUS, UNSPECIFIED Qualifiers: Altered mental status type: transient alteration of awareness Qualified Code(s): R40.4 - Transient alteration of awareness (4) COPD (chronic obstructive pulmonary disease) Code(s): J44.9 - CHRONIC OBSTRUCTIVE PULMONARY DISEASE, UNSPECIFIED Qualifiers: COPD type: COPD with acute exacerbation Qualified Code(s): J44.1 - Chronic obstructive pulmonary disease with (acute) exacerbation (5) Chronic renal disease Code(s): N18.9 - CHRONIC KIDNEY DISEASE, UNSPECIFIED (6) Chronic venous stasis dermatitis of both lower extremities Code(s): I83.11 - VARICOSE VEINS OF RIGHT LOWER EXTREMITY WITH INFLAMMATION; I83.12 - VARICOSE VEINS OF LEFT LOWER EXTREMITY WITH INFLAMMATION (7) Hypoxia Code(s): R09.02 - HYPOXEMIA (8) Sleep apnea Code(s): G47.30 - SLEEP APNEA, UNSPECIFIED (9) CAD (coronary artery disease) Code(s): I25.10 - ATHSCL HEART DISEASE OF [place] CORONARY ARTERY W/O ANG PCTRS (10) COPD (chronic obstructive pulmonary disease) with chronic bronchitis Code(s): J44.9 - CHRONIC OBSTRUCTIVE PULMONARY DISEASE, UNSPECIFIED (11) Diabetes Code(s): E11.9 - TYPE 2 DIABETES MELLITUS WITHOUT COMPLICATIONS Qualifiers: Diabetes mellitus type: type 2 (12) Leg edema Code(s): R60.0 - LOCALIZED EDEMA (13) MARTIN treated with BiPAP Code(s): G47.33 - OBSTRUCTIVE SLEEP APNEA (ADULT) (PEDIATRIC) (14) Obesity Code(s): E66.9 - OBESITY, UNSPECIFIED (15) PVD (peripheral vascular disease) Code(s): I73.9 - PERIPHERAL VASCULAR DISEASE, UNSPECIFIED Assessment/Plan Assessment/Plan Acute on Chronic Hypoxic and Hypercapneic Respiratory Failure Acute COPD Exacerbation slowly improving Cellulitis LV Diastolic Dysfunction HTN DM Hyperlipidemia PAD h/o CVA Smoker - antibiotics - IV medrol taper - inhaled bronchodilators standing and PRN - O2 to keep SpO2 >85% - BiPAP as needed - smoking cessation - DVT prophylaxis DR GREEN
[2018-07-15 14:25] LABS: ANISOCYTOSIS 1+
[2018-07-15 14:26] LABS: PLATELET ESTIMATE ADEQUATE
--- NOTE | 2018-07-15 17:13 | PN ---
Progress Note, Physician History of Present Illness: Pt w/o fever, chills, SOB, CP, palp, dizziness, abd pain. Pt with less feet pain today. Pt is asking for saltines (now pt finished to eat but wants to have saltines with his coffee), and in general more food with each meal (old problem; per his the same happens at home) . - Current Medication List Current Medications: Active Medications Acetaminophen (Tylenol -) 325 mg PO Q12H PRN PRN Reason: PAIN LEVEL 1 - 3 Albuterol Sulfate (Ventolin 0.083% Nebulizer Soln -) 1 amp NEB Q6H PRN PRN Reason: WHEEZING Last Admin: 07/11/18 22:00 Dose: 1 amp Albuterol/Ipratropium (Duoneb -) 1 amp NEB RQID [facility] Last Admin: 07/15/18 16:25 Dose: 1 amp Aspirin (Asa -) 81 mg PO DAILY [facility] Last Admin: 07/15/18 11:00 Dose: 81 mg Budesonide/Formoterol Fumarate (Symbicort 160/4.5mcg -) 1 puff IH BID [facility] Last Admin: 07/15/18 11:02 Dose: 1 puff Cholecalciferol (Vitamin D3 -) 1,000 unit PO DAILY [facility] Last Admin: 07/15/18 11:00 Dose: 1,000 unit Citalopram Hydrobromide (Celexa -) 10 mg PO DAILY [facility] Last Admin: 07/15/18 11:00 Dose: 10 mg Clopidogrel Bisulfate (Plavix -) 75 mg PO DAILY [facility] Last Admin: 07/15/18 11:00 Dose: 75 mg Cyanocobalamin (Vitamin B12 -) 50 mcg PO DAILY [facility] Last Admin: 07/15/18 11:00 Dose: 50 mcg Fluocinonide (Lidex 0.05% Cream -) 1 applic TP DAILY [facility] Last Admin: 07/15/18 11:01 Dose: 1 applic Heparin Sodium (Porcine) (Heparin -) 5,000 unit SQ BID [facility] Last Admin: 07/15/18 11:00 Dose: 5,000 unit Vancomycin HCl 1,250 mg/ (Dextrose) 250 mls @ 250 mls/2 hr IVPB Q24H [facility]; Protocol Last Admin: 07/15/18 00:52 Dose: 250 mls/2 hr Insulin Aspart (Novolog Vial Sliding Scale -) 1 vial SQ ACHS [facility]; Protocol Last Admin: 07/15/18 16:42 Dose: 10 units Insulin Detemir (Levemir Vial) 10 units SQ BID@0700,2200 [facility] Last Admin: 07/15/18 06:15 Dose: 10 units Lactic Acid (Lac-Hydrin 12) 1 applic TP DAILY [facility] Last Admin: 07/15/18 11:01 Dose: 1 applic Lactobacillus Acidophilus (Bacid -) 1 tab PO DAILY [facility] Last Admin: 07/15/18 11:00 Dose: 1 tab Methylprednisolone Sodium Succinate (Solu-Medrol -) 40 mg IVPUSH BID [facility] Last Admin: 07/15/18 11:00 Dose: 40 mg Nystatin (Mycostatin Cream -) 1 applic TP BID [facility] Last Admin: 07/15/18 11:01 Dose: 1 applic Nystatin (Nystop Powder -) 1 applic TP DAILY [facility] Last Admin: 07/15/18 11:01 Dose: 1 applic - Objective Vital Signs: Vital Signs Temperature 98.2 F 07/15/18 15:00 Pulse Rate 78 07/15/18 15:00 Respiratory Rate 20 07/15/18 15:00 Blood Pressure 167/80 07/15/18 15:00 O2 Sat by Pulse Oximetry (%) 96 07/15/18 14:18 Constitutional: Yes: No Distress, Calm Cardiovascular: Yes: Regular Rate and Rhythm, S1, S2 Respiratory: Yes: Regular, CTA Bilaterally. No: Rales Gastrointestinal: Yes: Normal Bowel Sounds, Soft, Abdomen, Obese. No: Tenderness Extremities: Yes: Other (unchanged) Edema: Yes Edema: LLE: Trace, RLE: Trace Neurological: Yes: Alert, Oriented Labs: CBC, BMP 07/15/18 06:00 07/15/18 06:00 Problem List - Problems (1) COPD with acute exacerbation Code(s): J44.1 - CHRONIC OBSTRUCTIVE PULMONARY DISEASE W (ACUTE) EXACERBATION (2) Cellulitis of leg Code(s): L03.119 - CELLULITIS OF UNSPECIFIED PART OF LIMB Qualifiers: Laterality: unspecified laterality Qualified Code(s): L03.119 - Cellulitis of unspecified part of limb (3) THERESA (acute kidney injury) Code(s): N17.9 - ACUTE KIDNEY FAILURE, UNSPECIFIED (4) Karla rash of groin Code(s): B37.89 - OTHER SITES OF CANDIDIASIS (5) CHF (congestive heart failure) Code(s): I50.9 - HEART FAILURE, UNSPECIFIED (6) Acute on chronic respiratory failure with hypoxia and hypercapnia Code(s): J96.21 - ACUTE AND CHRONIC RESPIRATORY FAILURE WITH HYPOXIA; J96.22 - ACUTE AND CHRONIC RESPIRATORY FAILURE WITH HYPERCAPNIA (7) Diabetes mellitus, insulin dependent (IDDM), uncontrolled Code(s): E10.65 - TYPE 1 DIABETES MELLITUS WITH HYPERGLYCEMIA (8) Leg edema Code(s): R60.0 - LOCALIZED EDEMA (9) AMRTIN treated with BiPAP Code(s): G47.33 - OBSTRUCTIVE SLEEP APNEA (ADULT) (PEDIATRIC) (10) PVD (peripheral vascular disease) Code(s): I73.9 - PERIPHERAL VASCULAR DISEASE, UNSPECIFIED (11) Hyperkalemia Assessment/Plan: borderline Code(s): E87.5 - HYPERKALEMIA Assessment/Plan I explained to pt the importance of diet as part of the treatment plan. I encourage hydration Pt on IV abtx- to f/u with ID Pt on IV steroids. Cont BIPAP- benefits were reviewed ID, Pulmonary, Cardio, Renal consults are appreciated. AM labs, including K Case was d/w his nurse.
--- NOTE | 2018-07-15 17:39 | PN ---
Progress Note (short form) - Note Progress Note: covering dr krishna problems -THERESA / volume depletion -COPD exacerbation, hypoxia -LE cellulitis -Hypertension -Anemia -DM on insulin pmhx- history of CVA, Hypertension, Hyperlipidemia, COPD on O2, CKD, PVD, Heart block Current Medications Acetaminophen (Tylenol -) 325 mg PO Q12H PRN PRN Reason: PAIN LEVEL 1 - 3 Albuterol Sulfate (Ventolin 0.083% Nebulizer Soln -) 1 amp NEB Q6H PRN PRN Reason: WHEEZING Last Admin: 07/11/18 22:00 Dose: 1 amp Albuterol/Ipratropium (Duoneb -) 1 amp NEB RQID [facility] Last Admin: 07/15/18 16:25 Dose: 1 amp Aspirin (Asa -) 81 mg PO DAILY [facility] Last Admin: 07/15/18 11:00 Dose: 81 mg Budesonide/Formoterol Fumarate (Symbicort 160/4.5mcg -) 1 puff IH BID [facility] Last Admin: 07/15/18 11:02 Dose: 1 puff Cholecalciferol (Vitamin D3 -) 1,000 unit PO DAILY [facility] Last Admin: 07/15/18 11:00 Dose: 1,000 unit Citalopram Hydrobromide (Celexa -) 10 mg PO DAILY [facility] Last Admin: 07/15/18 11:00 Dose: 10 mg Clopidogrel Bisulfate (Plavix -) 75 mg PO DAILY [facility] Last Admin: 07/15/18 11:00 Dose: 75 mg Cyanocobalamin (Vitamin B12 -) 50 mcg PO DAILY [facility] Last Admin: 07/15/18 11:00 Dose: 50 mcg Fluocinonide (Lidex 0.05% Cream -) 1 applic TP DAILY [facility] Last Admin: 07/15/18 11:01 Dose: 1 applic Heparin Sodium (Porcine) (Heparin -) 5,000 unit SQ BID [facility] Last Admin: 07/15/18 11:00 Dose: 5,000 unit Vancomycin HCl 1,250 mg/ (Dextrose) 250 mls @ 250 mls/2 hr IVPB Q24H [facility]; Protocol Last Admin: 07/15/18 00:52 Dose: 250 mls/2 hr Insulin Aspart (Novolog Vial Sliding Scale -) 1 vial SQ ACHS [facility]; Protocol Last Admin: 07/15/18 16:42 Dose: 10 units Insulin Detemir (Levemir Vial) 10 units SQ BID@0700,2200 [facility] Last Admin: 07/15/18 06:15 Dose: 10 units Lactic Acid (Lac-Hydrin 12) 1 applic TP DAILY [facility] Last Admin: 07/15/18 11:01 Dose: 1 applic Lactobacillus Acidophilus (Bacid -) 1 tab PO DAILY [facility] Last Admin: 07/15/18 11:00 Dose: 1 tab Methylprednisolone Sodium Succinate (Solu-Medrol -) 40 mg IVPUSH BID [facility] Last Admin: 07/15/18 11:00 Dose: 40 mg Nystatin (Mycostatin Cream -) 1 applic TP BID [facility] Last Admin: 07/15/18 11:01 Dose: 1 applic Nystatin (Nystop Powder -) 1 applic TP DAILY [facility] Last Admin: 07/15/18 11:01 Dose: 1 applic Last Vital Signs Temp Pulse Resp BP Pulse Ox 98.2 F 78 20 167/80 96 07/15/18 15:00 07/15/18 15:00 07/15/18 15:00 07/15/18 15:00 07/15/18 17:13 lungs clear heart reg abd soft nontender ext edema wrapped CBC, BMP 07/15/18 06:00 07/15/18 06:00 CBC, BMP 07/13/18 06:00 07/14/18 06:00 IMP- Prerenal azotemia ( steroids ) underlying ckd renal function stable High BUN from diuretics and steroids Plan- ensure hydration monitor labs
[2018-07-16] MEDS: VANCOMYCIN 1,250 MG in DEXTROSE 5%-WATER - 250 ML IVPB SCH ×2 (00:38→23:45)
[2018-07-16] MEDS: INSULIN (LEVEMIR) 100 UNITS/ML UNITS SQ SCH ×2 (06:51→22:48)
[2018-07-16] MEDS: INSULIN SLIDING SCALE (NOVOLOG) 1 VIAL SQ SCH ×4 (06:51→22:49)
[2018-07-16 07:02] LABS: HEMOGLOBIN 10.9 GM/dL (11.7-16.9); MCH 22.8 pg (25.7-33.7); MCHC 30.4 g/dl (32.0-35.9); MEAN CELL VOLUME 75.2 fl (80-96); MEAN PLT VOLUME 7.5 fl (7.5-11.1); PLATELET COUNT 213 K/MM3 (134-434); RBC 4.79 M/mm3 (4.00-5.60); RDW 20.6 % (11.9-15.9); WHITE BLOOD COUNT 7.9 K/mm3 (4.0-10.0)
[2018-07-16] MEDS: ALBUTEROL SO4 2.5/IPRATROPIUM 0.5 INH SOL 3 ML VIAL.NEB. NEB SCH ×2 (07:22→10:59)
[2018-07-16 07:31] LABS: ALBUMIN 2.5 g/dl (3.4-5.0); ALK PHOS 53 U/L (45-117); ANION GAP 1 MMOL/L (8-16); BILIRUBIN,TOTAL 0.4 mg/dL (0.2-1); BLOOD UREA NITROGEN 37 mg/dL (7-18); CHLORIDE 98 mmol/L (98-107); CO2 38 mmol/L (21-32); CREATININE 1.1 mg/dL (0.55-1.3); GLUCOSE,RANDOM 188 mg/dL (74-106); POTASSIUM 5.4 mmol/L (3.5-5.1); SGOT/AST 12 U/L (15-37); SGPT/ALT 15 U/L (13-61); SODIUM 137 mmol/L (136-145)
--- NOTE | 2018-07-16 10:24 | PN ---
Progress Note (short form) - Note Progress Note: s: no cp, sob, palps dizzy. o: Vital Signs Period Temp Pulse Resp BP Sys/Mullen Pulse Ox Last 24 Hr 97.6 F-98.2 F 68-78 20-22 152-167/80-90 94-98 Constitutional: Yes: No Distress, Calm Eyes: Yes: Conjunctiva Clear Neck: Yes: Supple, Trachea Midline Respiratory: Yes: On Nasal O2, Wheezes, Other (prolonged expiratory phase with scattered wheezes with expiration) Gastrointestinal: Yes: Normal Bowel Sounds, Soft Cardiovascular: Yes: Regular Rate and Rhythm JVD: No Heart Sounds: Yes: S1, S2 Extremities: Yes: Erythema, Other (erythema bilateral feet, bandages bilaterally ) Edema: Yes Edema: trace Neurological: Yes: Alert, Oriented Current Medications Acetaminophen (Tylenol -) 325 mg PO Q12H PRN PRN Reason: PAIN LEVEL 1 - 3 Last Admin: 07/16/18 01:33 Dose: 325 mg Albuterol Sulfate (Ventolin 0.083% Nebulizer Soln -) 1 amp NEB Q6H PRN PRN Reason: WHEEZING Last Admin: 07/11/18 22:00 Dose: 1 amp Albuterol/Ipratropium (Duoneb -) 1 amp NEB RQID [facility] Last Admin: 07/16/18 07:22 Dose: 1 amp Aspirin (Asa -) 81 mg PO DAILY [facility] Last Admin: 07/15/18 11:00 Dose: 81 mg Budesonide/Formoterol Fumarate (Symbicort 160/4.5mcg -) 1 puff IH BID [facility] Last Admin: 07/15/18 21:37 Dose: 1 puff Cholecalciferol (Vitamin D3 -) 1,000 unit PO DAILY [facility] Last Admin: 07/15/18 11:00 Dose: 1,000 unit Citalopram Hydrobromide (Celexa -) 10 mg PO DAILY [facility] Last Admin: 07/15/18 11:00 Dose: 10 mg Clopidogrel Bisulfate (Plavix -) 75 mg PO DAILY [facility] Last Admin: 07/15/18 11:00 Dose: 75 mg Cyanocobalamin (Vitamin B12 -) 50 mcg PO DAILY [facility] Last Admin: 07/15/18 11:00 Dose: 50 mcg Fluocinonide (Lidex 0.05% Cream -) 1 applic TP DAILY [facility] Last Admin: 07/15/18 11:01 Dose: 1 applic Heparin Sodium (Porcine) (Heparin -) 5,000 unit SQ BID [facility] Last Admin: 07/15/18 21:37 Dose: 5,000 unit Vancomycin HCl 1,250 mg/ (Dextrose) 250 mls @ 250 mls/2 hr IVPB Q24H [facility]; Protocol Last Admin: 07/16/18 00:38 Dose: 250 mls/2 hr Insulin Aspart (Novolog Vial Sliding Scale -) 1 vial SQ ACHS [facility]; Protocol Last Admin: 07/16/18 06:51 Dose: 2 units Insulin Detemir (Levemir Vial) 10 units SQ BID@0700,2200 [facility] Last Admin: 07/16/18 06:51 Dose: 10 units Lactic Acid (Lac-Hydrin 12) 1 applic TP DAILY [facility] Last Admin: 07/15/18 11:01 Dose: 1 applic Lactobacillus Acidophilus (Bacid -) 1 tab PO DAILY [facility] Last Admin: 07/15/18 11:00 Dose: 1 tab Methylprednisolone Sodium Succinate (Solu-Medrol -) 40 mg IVPUSH BID [facility] Last Admin: 07/15/18 21:37 Dose: 40 mg Nystatin (Mycostatin Cream -) 1 applic TP BID [facility] Last Admin: 07/15/18 22:31 Dose: 1 applic Nystatin (Nystop Powder -) 1 applic TP DAILY [facility] Last Admin: 07/15/18 11:01 Dose: 1 applic Assessment/Plan echo 12/2016: nl lv/rv, mild lae, mild mr, mild-mod tr, possible mild as, mild phtn exercise mibi 01/02: no ischemia at 80% mphr cxr: no acute process EKG: sinus, LBBB, mobitz 1 (similar to prior EKG from 2017; EKG from 05/2018 sinus, 1st deg AVB, LBBB) a/p: 68 m hx htn, hld, dm, obesity, tia 2004, lbbb, dchf/venous insuff, recurrent le cellulitis, mobitz 1 avb and first degree avb, pad s/p left fem- pop bypass, smoking, copd, here with le cellulitis, hypoxia Abnormal EKG, mobitz 1 - chronic finding, has had prior event monitors in clinic showing mobitz 1 without significant pauses - noted on prior EKGs here - avoid AV arsh blocking agents - stable from cardiac perspective Hypoxia, COPD - denies dyspnea, sats improved - has h/o diastolic CHF however on exam appears euvolemic - exam more consistent with COPD exacerbation, pulm following chronic venous insuff/LE edema, recurrent cellulitis: - vasc surgery, Dr. Cordon/wound team consulted - on IV abx PAD: -prior h/o left fem-pop bypass, cont dapt, statin chronic diastolic CHF -echoes have been unremarkable or very TDS in past, most recent 12/2016 was unremarkable -holding home torsemide, Cr improved, euvolemic htn: -stable, controlled hld: -cont statin h/o TIA (2003): -on ASA, statin for sec prevention, cont same
[2018-07-16] MEDS: LACTOBACILLUS ACIDOPHILUS 1 TABLET PO SCH (10:34)
[2018-07-16] MEDS: AMMONIUM LACTATE 12% LOTION 225 GM BOTTLE TP SCH (10:35)
[2018-07-16] MEDS: NYSTATIN 100,000 UNIT/GM TOPICAL CREAM 15 GM TUBE TP SCH ×2 (10:35→22:48)
[2018-07-16] MEDS: ASPIRIN 81 MG CHEWABLE TABLETS PO SCH (10:35)
[2018-07-16] MEDS: CLOPIDOGREL BISULFATE 75 MG TABLET (FP) PO SCH (10:35)
[2018-07-16] MEDS: methylPREDNISolone NA SUCC 40 MG/1 ML VIAL IVPUSH SCH ×3 (10:35→22:49)
[2018-07-16] MEDS: CHOLECALCIFEROL (VITAMIN D3) 1,000 UNIT TABLET (FP) PO SCH (10:35)
[2018-07-16] MEDS: FLUOCINONIDE 0.05% CREAM (15 GM TUBE) TP SCH (10:35)
[2018-07-16] MEDS: CITALOPRAM HYDROBROMIDE 10 MG TABLET (FP) PO SCH (10:35)
[2018-07-16] MEDS: HEPARIN NA (PORCINE) 5,000 UNITS/ML 1ML VIAL SQ SCH ×2 (10:35→22:48)
[2018-07-16] MEDS: NYSTATIN POWDER 100,000 UNITS/GM - 15 GM TOPICAL POWDER TP SCH (10:36)
[2018-07-16] MEDS: CYANOCOBALAMIN (VITAMIN B-12) 100 MCG TABLET PO SCH (10:36)
[2018-07-16] MEDS: BUDESONIDE/FORMETEROL FUMARATE 160/4.5 mcg INHALER IH SCH ×2 (10:37→22:57)
[2018-07-16] MEDS ORDERED: INSULIN (NOVOLOG) ASPART 100 UNITS/ML 10ML VIAL ONE (11:24)
--- NOTE | 2018-07-16 11:28 | PN ---
Progress Note, Physician History of Present Illness: pulmonary alert,feeling better,less dyspneic, - Current Medication List Current Medications: Active Medications Acetaminophen (Tylenol -) 325 mg PO Q12H PRN PRN Reason: PAIN LEVEL 1 - 3 Last Admin: 07/16/18 01:33 Dose: 325 mg Albuterol Sulfate (Ventolin 0.083% Nebulizer Soln -) 1 amp NEB Q6H PRN PRN Reason: WHEEZING Last Admin: 07/11/18 22:00 Dose: 1 amp Albuterol/Ipratropium (Duoneb -) 1 amp NEB RQID [facility] Last Admin: 07/16/18 10:59 Dose: 1 amp Aspirin (Asa -) 81 mg PO DAILY [facility] Last Admin: 07/16/18 10:35 Dose: 81 mg Budesonide/Formoterol Fumarate (Symbicort 160/4.5mcg -) 1 puff IH BID [facility] Last Admin: 07/16/18 10:37 Dose: 1 puff Cholecalciferol (Vitamin D3 -) 1,000 unit PO DAILY [facility] Last Admin: 07/16/18 10:35 Dose: 1,000 unit Citalopram Hydrobromide (Celexa -) 10 mg PO DAILY [facility] Last Admin: 07/16/18 10:35 Dose: 10 mg Clopidogrel Bisulfate (Plavix -) 75 mg PO DAILY [facility] Last Admin: 07/16/18 10:35 Dose: 75 mg Cyanocobalamin (Vitamin B12 -) 50 mcg PO DAILY [facility] Last Admin: 07/16/18 10:36 Dose: 50 mcg Fluocinonide (Lidex 0.05% Cream -) 1 applic TP DAILY [facility] Last Admin: 07/16/18 10:35 Dose: 1 applic Heparin Sodium (Porcine) (Heparin -) 5,000 unit SQ BID [facility] Last Admin: 07/16/18 10:35 Dose: 5,000 unit Vancomycin HCl 1,250 mg/ (Dextrose) 250 mls @ 250 mls/2 hr IVPB Q24H [facility]; Protocol Last Admin: 07/16/18 00:38 Dose: 250 mls/2 hr Insulin Aspart (Novolog Vial Sliding Scale -) 1 vial SQ ACHS [facility]; Protocol Last Admin: 07/16/18 11:24 Dose: 4 units Insulin Detemir (Levemir Vial) 10 units SQ BID@0700,2200 [facility] Last Admin: 07/16/18 06:51 Dose: 10 units Lactic Acid (Lac-Hydrin 12) 1 applic TP DAILY [facility] Last Admin: 07/16/18 10:35 Dose: 1 applic Lactobacillus Acidophilus (Bacid -) 1 tab PO DAILY [facility] Last Admin: 07/16/18 10:34 Dose: 1 tab Methylprednisolone Sodium Succinate (Solu-Medrol -) 40 mg IVPUSH BID [facility] Last Admin: 07/16/18 10:35 Dose: 40 mg Nystatin (Mycostatin Cream -) 1 applic TP BID [facility] Last Admin: 07/16/18 10:35 Dose: 1 applic Nystatin (Nystop Powder -) 1 applic TP DAILY [facility] Last Admin: 07/16/18 10:36 Dose: 1 applic - Objective Vital Signs: Vital Signs Temperature 97.6 F 07/16/18 06:00 Pulse Rate 68 07/16/18 06:00 Respiratory Rate 22 H 07/16/18 09:00 Blood Pressure 159/87 07/16/18 06:00 O2 Sat by Pulse Oximetry (%) 94 L 07/16/18 09:00 Constitutional: Yes: Well Nourished, Calm Eyes: Yes: WNL HENT: Yes: WNL Neck: Yes: WNL Cardiovascular: Yes: Regular Rate and Rhythm, S1, S2 Respiratory: Yes: Diminished Gastrointestinal: Yes: Normal Bowel Sounds, Soft Extremities: Yes: Other (wrapped) Edema: Yes Labs: CBC, BMP 07/16/18 06:00 07/16/18 06:00 Problem List - Problems (1) Acute on chronic respiratory failure with hypoxia and hypercapnia Code(s): J96.21 - ACUTE AND CHRONIC RESPIRATORY FAILURE WITH HYPOXIA; J96.22 - ACUTE AND CHRONIC RESPIRATORY FAILURE WITH HYPERCAPNIA (2) Cellulitis of leg Code(s): L03.119 - CELLULITIS OF UNSPECIFIED PART OF LIMB Qualifiers: Laterality: unspecified laterality Qualified Code(s): L03.119 - Cellulitis of unspecified part of limb (3) Altered mental state Code(s): R41.82 - ALTERED MENTAL STATUS, UNSPECIFIED Qualifiers: Altered mental status type: transient alteration of awareness Qualified Code(s): R40.4 - Transient alteration of awareness (4) COPD (chronic obstructive pulmonary disease) Code(s): J44.9 - CHRONIC OBSTRUCTIVE PULMONARY DISEASE, UNSPECIFIED Qualifiers: COPD type: COPD with acute exacerbation Qualified Code(s): J44.1 - Chronic obstructive pulmonary disease with (acute) exacerbation (5) Chronic renal disease Code(s): N18.9 - CHRONIC KIDNEY DISEASE, UNSPECIFIED (6) Chronic venous stasis dermatitis of both lower extremities Code(s): I83.11 - VARICOSE VEINS OF RIGHT LOWER EXTREMITY WITH INFLAMMATION; I83.12 - VARICOSE VEINS OF LEFT LOWER EXTREMITY WITH INFLAMMATION (7) Hypoxia Code(s): R09.02 - HYPOXEMIA (8) Sleep apnea Code(s): G47.30 - SLEEP APNEA, UNSPECIFIED (9) CAD (coronary artery disease) Code(s): I25.10 - ATHSCL HEART DISEASE OF [place] CORONARY ARTERY W/O ANG PCTRS (10) COPD (chronic obstructive pulmonary disease) with chronic bronchitis Code(s): J44.9 - CHRONIC OBSTRUCTIVE PULMONARY DISEASE, UNSPECIFIED (11) Diabetes Code(s): E11.9 - TYPE 2 DIABETES MELLITUS WITHOUT COMPLICATIONS Qualifiers: Diabetes mellitus type: type 2 (12) Leg edema Code(s): R60.0 - LOCALIZED EDEMA (13) MARTIN treated with BiPAP Code(s): G47.33 - OBSTRUCTIVE SLEEP APNEA (ADULT) (PEDIATRIC) (14) Obesity Code(s): E66.9 - OBESITY, UNSPECIFIED (15) PVD (peripheral vascular disease) Code(s): I73.9 - PERIPHERAL VASCULAR DISEASE, UNSPECIFIED Assessment/Plan Assessment/Plan Acute on Chronic Hypoxic and Hypercapneic Respiratory Failure improving Acute COPD Exacerbation slowly improving Cellulitis LV Diastolic Dysfunction HTN DM Hyperlipidemia PAD h/o CVA Smoker - antibiotics - IV medrol taper - inhaled bronchodilators standing and PRN - O2 to keep SpO2 >85% - BiPAP as needed - smoking cessation - DVT prophylaxis DR GREEN
--- NOTE | 2018-07-16 12:07 | PN ---
Progress Note (short form) - Note Progress Note: Renal Follow up for THERESA Pt seen and examined at the bedside no acute complaints denies any sob, cp, abd pain, N/V/D making urine w/o difficulty Vital Signs Temperature 97.6 F 07/16/18 06:00 Pulse Rate 68 07/16/18 06:00 Respiratory Rate 22 H 07/16/18 09:00 Blood Pressure 159/87 07/16/18 06:00 O2 Sat by Pulse Oximetry (%) 94 L 07/16/18 09:00 Intake & Output 07/13/18 07/14/18 07/15/18 07/16/18 23:59 23:59 23:59 23:59 Intake Total 2600 490 550 Output Total 890 579 8704 Balance 1650 -460 -500 NAD RRR, No M/R Dec BS, no rales or wheeze soft NT/ND trace edema in LE, + erythema in both legs, improved CBC, BMP 07/16/18 06:00 07/16/18 06:00 Current Medications Acetaminophen (Tylenol -) 325 mg PO Q12H PRN PRN Reason: PAIN LEVEL 1 - 3 Last Admin: 07/16/18 01:33 Dose: 325 mg Albuterol Sulfate (Ventolin 0.083% Nebulizer Soln -) 1 amp NEB Q6H PRN PRN Reason: WHEEZING Last Admin: 07/11/18 22:00 Dose: 1 amp Albuterol/Ipratropium (Duoneb -) 1 amp NEB RQID [facility] Last Admin: 07/16/18 10:59 Dose: 1 amp Aspirin (Asa -) 81 mg PO DAILY [facility] Last Admin: 07/16/18 10:35 Dose: 81 mg Budesonide/Formoterol Fumarate (Symbicort 160/4.5mcg -) 1 puff IH BID [facility] Last Admin: 07/16/18 10:37 Dose: 1 puff Cholecalciferol (Vitamin D3 -) 1,000 unit PO DAILY [facility] Last Admin: 07/16/18 10:35 Dose: 1,000 unit Citalopram Hydrobromide (Celexa -) 10 mg PO DAILY [facility] Last Admin: 07/16/18 10:35 Dose: 10 mg Clopidogrel Bisulfate (Plavix -) 75 mg PO DAILY [facility] Last Admin: 07/16/18 10:35 Dose: 75 mg Cyanocobalamin (Vitamin B12 -) 50 mcg PO DAILY [facility] Last Admin: 07/16/18 10:36 Dose: 50 mcg Fluocinonide (Lidex 0.05% Cream -) 1 applic TP DAILY [facility] Last Admin: 07/16/18 10:35 Dose: 1 applic Heparin Sodium (Porcine) (Heparin -) 5,000 unit SQ BID [facility] Last Admin: 07/16/18 10:35 Dose: 5,000 unit Vancomycin HCl 1,250 mg/ (Dextrose) 250 mls @ 250 mls/2 hr IVPB Q24H [facility]; Protocol Last Admin: 07/16/18 00:38 Dose: 250 mls/2 hr Insulin Aspart (Novolog Vial Sliding Scale -) 1 vial SQ ACHS [facility]; Protocol Last Admin: 07/16/18 11:24 Dose: 4 units Insulin Detemir (Levemir Vial) 10 units SQ BID@0700,2200 [facility] Last Admin: 07/16/18 06:51 Dose: 10 units Lactic Acid (Lac-Hydrin 12) 1 applic TP DAILY [facility] Last Admin: 07/16/18 10:35 Dose: 1 applic Lactobacillus Acidophilus (Bacid -) 1 tab PO DAILY [facility] Last Admin: 07/16/18 10:34 Dose: 1 tab Methylprednisolone Sodium Succinate (Solu-Medrol -) 40 mg IVPUSH BID [facility] Last Admin: 07/16/18 10:35 Dose: 40 mg Nystatin (Mycostatin Cream -) 1 applic TP BID [facility] Last Admin: 07/16/18 10:35 Dose: 1 applic Nystatin (Nystop Powder -) 1 applic TP DAILY [facility] Last Admin: 07/16/18 10:36 Dose: 1 applic 68 year old gentleman with history of CVA, Hypertension, Hyperlipidemia, COPD on O2, CKD (? baseline, noted to have hx of THERESA in the past ), PVD, Heart block who presented from the [place] with hypoxia and Le cellulitis. #THERESA likely due to mild volume depletion (high BUN/Cr ratio, on diuretics, concurrent infection) #COPD exacerbation #LE cellulitis #Hypertension #Anemia #DM on insulin Renal function is improved and stable, pt is non-oliguric no signs of overt fluid overload at this time as pt biggs been off diuretics K remains marginally high, will change diet to low potassium, dicussed with patient. taper steroids as per pulmonary Abx as per Id, trend vanco levels Kartik Escobedo DO
--- NOTE | 2018-07-16 16:52 | PN ---
Progress Note (short form) - Note Progress Note: doing well Vital Signs Period Temp Pulse Resp BP Sys/Mullen Pulse Ox Last 24 Hr 97.6 F-98.3 F 68-85 20-22 138-159/63-90 94-98 cor-rrr lungs clear abd soft,nt groin rash resolved erythema of the legs improved CBC, BMP 07/16/18 06:00 07/16/18 06:00 a/p cellulitis-day #6 vancomycin improved can switch to po doxycycline 100 mg po bid for 7 day with probiotic for one month history of MRSA Problem List - Problems (1) Cellulitis of leg Code(s): L03.119 - CELLULITIS OF UNSPECIFIED PART OF LIMB Qualifiers: Laterality: unspecified laterality Qualified Code(s): L03.119 - Cellulitis of unspecified part of limb (2) Chronic venous stasis dermatitis of both lower extremities Code(s): I83.11 - VARICOSE VEINS OF RIGHT LOWER EXTREMITY WITH INFLAMMATION; I83.12 - VARICOSE VEINS OF LEFT LOWER EXTREMITY WITH INFLAMMATION (3) Karla rash of groin Code(s): B37.89 - OTHER SITES OF CANDIDIASIS (4) MRSA (methicillin resistant staph aureus) culture positive Code(s): Z22.322 - CARRIER OR SUSPECTED CARRIER OF METHICILLIN RESIS STAPH
--- NOTE | 2018-07-16 18:48 | PN ---
Progress Note, Physician History of Present Illness: Pt w/o fever, chills, SOB, CP, palp, dizziness, abd pain. Pt with less feet pain today. - Current Medication List Current Medications: Active Medications Acetaminophen (Tylenol -) 325 mg PO Q12H PRN PRN Reason: PAIN LEVEL 1 - 3 Last Admin: 07/16/18 01:33 Dose: 325 mg Albuterol Sulfate (Ventolin 0.083% Nebulizer Soln -) 1 amp NEB Q6H PRN PRN Reason: WHEEZING Last Admin: 07/11/18 22:00 Dose: 1 amp Aspirin (Asa -) 81 mg PO DAILY [facility] Last Admin: 07/16/18 10:35 Dose: 81 mg Budesonide/Formoterol Fumarate (Symbicort 160/4.5mcg -) 1 puff IH BID [facility] Last Admin: 07/16/18 10:37 Dose: 1 puff Cholecalciferol (Vitamin D3 -) 1,000 unit PO DAILY [facility] Last Admin: 07/16/18 10:35 Dose: 1,000 unit Citalopram Hydrobromide (Celexa -) 10 mg PO DAILY [facility] Last Admin: 07/16/18 10:35 Dose: 10 mg Clopidogrel Bisulfate (Plavix -) 75 mg PO DAILY [facility] Last Admin: 07/16/18 10:35 Dose: 75 mg Cyanocobalamin (Vitamin B12 -) 50 mcg PO DAILY [facility] Last Admin: 07/16/18 10:36 Dose: 50 mcg Fluocinonide (Lidex 0.05% Cream -) 1 applic TP DAILY [facility] Last Admin: 07/16/18 10:35 Dose: 1 applic Heparin Sodium (Porcine) (Heparin -) 5,000 unit SQ BID [facility] Last Admin: 07/16/18 10:35 Dose: 5,000 unit Vancomycin HCl 1,250 mg/ (Dextrose) 250 mls @ 250 mls/2 hr IVPB Q24H [facility]; Protocol Last Admin: 07/16/18 00:38 Dose: 250 mls/2 hr Insulin Aspart (Novolog Vial Sliding Scale -) 1 vial SQ ACHS [facility]; Protocol Last Admin: 07/16/18 17:35 Dose: 6 units Insulin Detemir (Levemir Vial) 10 units SQ BID@0700,2200 [facility] Last Admin: 07/16/18 06:51 Dose: 10 units Lactic Acid (Lac-Hydrin 12) 1 applic TP DAILY [facility] Last Admin: 07/16/18 10:35 Dose: 1 applic Lactobacillus Acidophilus (Bacid -) 1 tab PO DAILY [facility] Last Admin: 07/16/18 10:34 Dose: 1 tab Methylprednisolone Sodium Succinate (Solu-Medrol -) 30 mg IVPUSH BID [facility] Last Admin: 07/16/18 17:35 Dose: Not Given Nystatin (Mycostatin Cream -) 1 applic TP BID [facility] Last Admin: 07/16/18 10:35 Dose: 1 applic Nystatin (Nystop Powder -) 1 applic TP DAILY [facility] Last Admin: 07/16/18 10:36 Dose: 1 applic - Objective Vital Signs: Vital Signs Temperature 97.1 F L 07/16/18 16:45 Pulse Rate 46 L 07/16/18 16:45 Respiratory Rate 20 07/16/18 16:45 Blood Pressure 159/62 07/16/18 16:45 O2 Sat by Pulse Oximetry (%) 94 L 07/16/18 09:00 Constitutional: Yes: No Distress, Calm Cardiovascular: Yes: Regular Rate and Rhythm, S1, S2 Respiratory: Yes: Regular, Rhonchi (scattered) Gastrointestinal: Yes: Normal Bowel Sounds, Soft, Abdomen, Obese. No: Tenderness Extremities: Yes: Erythema, Other (escoriations) Neurological: Yes: Alert, Oriented Labs: CBC, BMP 07/16/18 06:00 07/16/18 06:00 Problem List - Problems (1) COPD with acute exacerbation Code(s): J44.1 - CHRONIC OBSTRUCTIVE PULMONARY DISEASE W (ACUTE) EXACERBATION (2) Cellulitis of leg Code(s): L03.119 - CELLULITIS OF UNSPECIFIED PART OF LIMB Qualifiers: Laterality: unspecified laterality Qualified Code(s): L03.119 - Cellulitis of unspecified part of limb (3) THERESA (acute kidney injury) Code(s): N17.9 - ACUTE KIDNEY FAILURE, UNSPECIFIED (4) Karla rash of groin Code(s): B37.89 - OTHER SITES OF CANDIDIASIS (5) CHF (congestive heart failure) Code(s): I50.9 - HEART FAILURE, UNSPECIFIED (6) Acute on chronic respiratory failure with hypoxia and hypercapnia Code(s): J96.21 - ACUTE AND CHRONIC RESPIRATORY FAILURE WITH HYPOXIA; J96.22 - ACUTE AND CHRONIC RESPIRATORY FAILURE WITH HYPERCAPNIA (7) Diabetes mellitus, insulin dependent (IDDM), uncontrolled Code(s): E10.65 - TYPE 1 DIABETES MELLITUS WITH HYPERGLYCEMIA (8) Leg edema Code(s): R60.0 - LOCALIZED EDEMA (9) MARTIN treated with BiPAP Code(s): G47.33 - OBSTRUCTIVE SLEEP APNEA (ADULT) (PEDIATRIC) (10) PVD (peripheral vascular disease) Code(s): I73.9 - PERIPHERAL VASCULAR DISEASE, UNSPECIFIED (11) Hyperkalemia Code(s): E87.5 - HYPERKALEMIA Assessment/Plan Pt on IV abtx- to f/u with ID Pt on IV steroids-tappered (by Pulmonary). Cont BIPAP- benefits were reviewed ID, Pulmonary, Cardio, Renal consults are appreciated. AM labs Case was d/w his nurse.
[2018-07-16] MEDS ORDERED: PT OWN MED DRAWER 7, Y5N ONE ×2 (22:26→23:28)
[2018-07-17 06:41] LABS: ANION GAP 2 MMOL/L (8-16); BLOOD UREA NITROGEN 37 mg/dL (7-18); CALCIUM 7.6 mg/dL (8.5-10.1); CHLORIDE 103 mmol/L (98-107); CO2 37 mmol/L (21-32); CREATININE 1.1 mg/dL (0.55-1.3); GLUCOSE,RANDOM 96 mg/dL (74-106); MAGNESIUM 2.3 mg/dL (1.8-2.4); PHOSPHOROUS 3.3 mg/dL (2.5-4.9); POTASSIUM 4.6 mmol/L (3.5-5.1); SODIUM 142 mmol/L (136-145)
[2018-07-17] MEDS: INSULIN SLIDING SCALE (NOVOLOG) 1 VIAL SQ SCH ×4 (07:13→21:50)
[2018-07-17] MEDS ORDERED: INSULIN (NOVOLOG) ASPART 100 UNITS/ML 10ML VIAL ONE ×3 (07:19→21:29)
[2018-07-17] MEDS ORDERED: INSULIN (LEVEMIR) 100 UNITS/ML UNITS SQ ONE ×2 (07:20→08:55)
[2018-07-17] MEDS: ALBUTEROL SO4 0.083% IH SOL 2.5 MG/3 ML VIAL.NEB. NEB PRN ×2 (08:06→16:41)
[2018-07-17] MEDS ORDERED: PT OWN MED DRAWER 7, Y5N ONE ×7 (09:56→23:21)
[2018-07-17] MEDS: methylPREDNISolone NA SUCC 40 MG/1 ML VIAL IVPUSH SCH ×2 (10:05→21:48)
[2018-07-17] MEDS: ASPIRIN 81 MG CHEWABLE TABLETS PO SCH (10:11)
[2018-07-17] MEDS: LACTOBACILLUS ACIDOPHILUS 1 TABLET PO SCH (10:11)
[2018-07-17] MEDS: CHOLECALCIFEROL (VITAMIN D3) 1,000 UNIT TABLET (FP) PO SCH (10:12)
[2018-07-17] MEDS: CYANOCOBALAMIN (VITAMIN B-12) 100 MCG TABLET PO SCH (10:12)
[2018-07-17] MEDS: NYSTATIN 100,000 UNIT/GM TOPICAL CREAM 15 GM TUBE TP SCH ×2 (10:13→21:52)
[2018-07-17] MEDS: CLOPIDOGREL BISULFATE 75 MG TABLET (FP) PO SCH (10:13)
[2018-07-17] MEDS: BUDESONIDE/FORMETEROL FUMARATE 160/4.5 mcg INHALER IH SCH ×2 (10:13→21:53)
[2018-07-17] MEDS: CITALOPRAM HYDROBROMIDE 10 MG TABLET (FP) PO SCH (10:14)
[2018-07-17] MEDS: HEPARIN NA (PORCINE) 5,000 UNITS/ML 1ML VIAL SQ SCH ×2 (10:14→21:48)
[2018-07-17] MEDS: NYSTATIN POWDER 100,000 UNITS/GM - 15 GM TOPICAL POWDER TP SCH (10:15)
[2018-07-17] MEDS: FLUOCINONIDE 0.05% CREAM (15 GM TUBE) TP SCH (10:15)
[2018-07-17] MEDS: AMMONIUM LACTATE 12% LOTION 225 GM BOTTLE TP SCH (10:15)
--- NOTE | 2018-07-17 11:28 | PN ---
Progress Note (short form) - Note Progress Note: s: no cp, sob, palps dizziness o: Vital Signs Period Temp Pulse Resp BP Sys/Mullen Pulse Ox Last 24 Hr 97.1 F-98.3 F 46-86 18-20 130-159/61-80 94-98 Constitutional: Yes: No Distress, Calm Eyes: Yes: Conjunctiva Clear Neck: Yes: Supple, Trachea Midline Respiratory: Yes: On Nasal O2, Wheezes, Other (prolonged expiratory phase with scattered wheezes with expiration) Gastrointestinal: Yes: Normal Bowel Sounds, Soft Cardiovascular: Yes: Regular Rate and Rhythm JVD: No Heart Sounds: Yes: S1, S2 Extremities: Yes: Erythema, Other (erythema bilateral feet, bandages bilaterally ) Edema: Yes Edema: trace Neurological: Yes: Alert, Oriented Current Medications Acetaminophen (Tylenol -) 325 mg PO Q12H PRN PRN Reason: PAIN LEVEL 1 - 3 Last Admin: 07/16/18 01:33 Dose: 325 mg Albuterol Sulfate (Ventolin 0.083% Nebulizer Soln -) 1 amp NEB Q6H PRN PRN Reason: WHEEZING Last Admin: 07/17/18 08:06 Dose: 1 amp Aspirin (Asa -) 81 mg PO DAILY [facility] Last Admin: 07/17/18 10:11 Dose: 81 mg Budesonide/Formoterol Fumarate (Symbicort 160/4.5mcg -) 1 puff IH BID [facility] Last Admin: 07/17/18 10:13 Dose: 1 puff Cholecalciferol (Vitamin D3 -) 1,000 unit PO DAILY [facility] Last Admin: 07/17/18 10:12 Dose: 1,000 unit Citalopram Hydrobromide (Celexa -) 10 mg PO DAILY [facility] Last Admin: 07/17/18 10:14 Dose: 10 mg Clopidogrel Bisulfate (Plavix -) 75 mg PO DAILY [facility] Last Admin: 07/17/18 10:13 Dose: 75 mg Cyanocobalamin (Vitamin B12 -) 50 mcg PO DAILY [facility] Last Admin: 07/17/18 10:12 Dose: 50 mcg Fluocinonide (Lidex 0.05% Cream -) 1 applic TP DAILY [facility] Last Admin: 07/17/18 10:15 Dose: 1 applic Heparin Sodium (Porcine) (Heparin -) 5,000 unit SQ BID [facility] Last Admin: 07/17/18 10:14 Dose: 5,000 unit Vancomycin HCl 1,250 mg/ (Dextrose) 250 mls @ 250 mls/2 hr IVPB Q24H [facility]; Protocol Last Admin: 07/16/18 23:45 Dose: 250 mls/2 hr Insulin Aspart (Novolog Vial Sliding Scale -) 1 vial SQ ACHS [facility]; Protocol Last Admin: 07/17/18 07:13 Dose: Not Given Insulin Detemir (Levemir Vial) 12 units SQ BID@0700,2200 [facility] Lactic Acid (Lac-Hydrin 12) 1 applic TP DAILY [facility] Last Admin: 07/17/18 10:15 Dose: 1 applic Lactobacillus Acidophilus (Bacid -) 1 tab PO DAILY [facility] Last Admin: 07/17/18 10:11 Dose: 1 tab Methylprednisolone Sodium Succinate (Solu-Medrol -) 30 mg IVPUSH BID [facility] Last Admin: 07/17/18 10:05 Dose: 30 mg Nystatin (Mycostatin Cream -) 1 applic TP BID [facility] Last Admin: 07/17/18 10:13 Dose: 1 applic Nystatin (Nystop Powder -) 1 applic TP DAILY [facility] Last Admin: 07/17/18 10:15 Dose: 1 applic Assessment/Plan echo 12/2016: nl lv/rv, mild lae, mild mr, mild-mod tr, possible mild as, mild phtn exercise mibi 01/02: no ischemia at 80% mphr cxr: no acute process EKG: sinus, LBBB, mobitz 1 (similar to prior EKG from 2016; EKG from 05/2018 sinus, 1st deg AVB, LBBB) a/p: 68 m hx htn, hld, dm, obesity, tia 2003, lbbb, dchf/venous insuff, recurrent le cellulitis, mobitz 1 avb and first degree avb, pad s/p left fem- pop bypass, smoking, copd, here with le cellulitis, hypoxia Abnormal EKG, mobitz 1 - chronic finding, has had prior event monitors in clinic showing mobitz 1 without significant pauses - noted on prior EKGs here - avoid AV arsh blocking agents - stable from cardiac perspective Hypoxia, COPD - denies dyspnea, sats improved - has h/o diastolic CHF however on exam appears euvolemic - exam more consistent with COPD exacerbation, pulm following chronic venous insuff/LE edema, recurrent cellulitis: - vasc surgery, Dr. Cordon/wound team consulted - on IV abx, ID following PAD: -prior h/o left fem-pop bypass, cont dapt, statin chronic diastolic CHF -echoes have been unremarkable or very TDS in past, most recent 12/2016 was unremarkable -holding home torsemide, euvolemic htn: -stable, controlled hld: -cont statin h/o TIA (2003): -on ASA, statin for sec prevention, cont same
--- NOTE | 2018-07-17 12:52 | PN ---
Progress Note, Physician History of Present Illness: pulmonary alert,feeling better,less dyspneic.P2 sat 89% on ra at rest - Current Medication List Current Medications: Active Medications Acetaminophen (Tylenol -) 325 mg PO Q12H PRN PRN Reason: PAIN LEVEL 1 - 3 Last Admin: 07/16/18 01:33 Dose: 325 mg Albuterol Sulfate (Ventolin 0.083% Nebulizer Soln -) 1 amp NEB Q6H PRN PRN Reason: WHEEZING Last Admin: 07/17/18 08:06 Dose: 1 amp Aspirin (Asa -) 81 mg PO DAILY [facility] Last Admin: 07/17/18 10:11 Dose: 81 mg Budesonide/Formoterol Fumarate (Symbicort 160/4.5mcg -) 1 puff IH BID [facility] Last Admin: 07/17/18 10:13 Dose: 1 puff Cholecalciferol (Vitamin D3 -) 1,000 unit PO DAILY [facility] Last Admin: 07/17/18 10:12 Dose: 1,000 unit Citalopram Hydrobromide (Celexa -) 10 mg PO DAILY [facility] Last Admin: 07/17/18 10:14 Dose: 10 mg Clopidogrel Bisulfate (Plavix -) 75 mg PO DAILY [facility] Last Admin: 07/17/18 10:13 Dose: 75 mg Cyanocobalamin (Vitamin B12 -) 50 mcg PO DAILY [facility] Last Admin: 07/17/18 10:12 Dose: 50 mcg Fluocinonide (Lidex 0.05% Cream -) 1 applic TP DAILY [facility] Last Admin: 07/17/18 10:15 Dose: 1 applic Heparin Sodium (Porcine) (Heparin -) 5,000 unit SQ BID [facility] Last Admin: 07/17/18 10:14 Dose: 5,000 unit Vancomycin HCl 1,250 mg/ (Dextrose) 250 mls @ 250 mls/2 hr IVPB Q24H [facility]; Protocol Last Admin: 07/16/18 23:45 Dose: 250 mls/2 hr Insulin Aspart (Novolog Vial Sliding Scale -) 1 vial SQ ACHS [facility]; Protocol Last Admin: 07/17/18 11:38 Dose: 2 units Insulin Detemir (Levemir Vial) 12 units SQ BID@0700,2200 [facility] Lactic Acid (Lac-Hydrin 12) 1 applic TP DAILY [facility] Last Admin: 07/17/18 10:15 Dose: 1 applic Lactobacillus Acidophilus (Bacid -) 1 tab PO DAILY [facility] Last Admin: 07/17/18 10:11 Dose: 1 tab Methylprednisolone Sodium Succinate (Solu-Medrol -) 30 mg IVPUSH BID [facility] Last Admin: 07/17/18 10:05 Dose: 30 mg Nystatin (Mycostatin Cream -) 1 applic TP BID [facility] Last Admin: 07/17/18 10:13 Dose: 1 applic Nystatin (Nystop Powder -) 1 applic TP DAILY [facility] Last Admin: 07/17/18 10:15 Dose: 1 applic - Objective Vital Signs: Vital Signs Temperature 97.8 F 07/17/18 10:18 Pulse Rate 70 07/17/18 10:18 Respiratory Rate 18 07/17/18 10:18 Blood Pressure 130/61 07/17/18 10:18 O2 Sat by Pulse Oximetry (%) 97 07/17/18 10:38 Constitutional: Yes: Well Nourished, Calm Eyes: Yes: WNL HENT: Yes: WNL Neck: Yes: Supple Cardiovascular: Yes: Regular Rate and Rhythm, S1, S2 Respiratory: Yes: Diminished Gastrointestinal: Yes: Normal Bowel Sounds, Soft Extremities: Yes: Erythema Edema: Yes Labs: 07/17/18 06:00 Problem List - Problems (1) Acute on chronic respiratory failure with hypoxia and hypercapnia Code(s): J96.21 - ACUTE AND CHRONIC RESPIRATORY FAILURE WITH HYPOXIA; J96.22 - ACUTE AND CHRONIC RESPIRATORY FAILURE WITH HYPERCAPNIA (2) Cellulitis of leg Code(s): L03.119 - CELLULITIS OF UNSPECIFIED PART OF LIMB Qualifiers: Laterality: unspecified laterality Qualified Code(s): L03.119 - Cellulitis of unspecified part of limb (3) Altered mental state Code(s): R41.82 - ALTERED MENTAL STATUS, UNSPECIFIED Qualifiers: Altered mental status type: transient alteration of awareness Qualified Code(s): R40.4 - Transient alteration of awareness (4) COPD (chronic obstructive pulmonary disease) Code(s): J44.9 - CHRONIC OBSTRUCTIVE PULMONARY DISEASE, UNSPECIFIED Qualifiers: COPD type: COPD with acute exacerbation Qualified Code(s): J44.1 - Chronic obstructive pulmonary disease with (acute) exacerbation (5) Chronic renal disease Code(s): N18.9 - CHRONIC KIDNEY DISEASE, UNSPECIFIED (6) Chronic venous stasis dermatitis of both lower extremities Code(s): I83.11 - VARICOSE VEINS OF RIGHT LOWER EXTREMITY WITH INFLAMMATION; I83.12 - VARICOSE VEINS OF LEFT LOWER EXTREMITY WITH INFLAMMATION (7) Hypoxia Code(s): R09.02 - HYPOXEMIA (8) Sleep apnea Code(s): G47.30 - SLEEP APNEA, UNSPECIFIED (9) CAD (coronary artery disease) Code(s): I25.10 - ATHSCL HEART DISEASE OF [place] CORONARY ARTERY W/O ANG PCTRS (10) COPD (chronic obstructive pulmonary disease) with chronic bronchitis Code(s): J44.9 - CHRONIC OBSTRUCTIVE PULMONARY DISEASE, UNSPECIFIED (11) Diabetes Code(s): E11.9 - TYPE 2 DIABETES MELLITUS WITHOUT COMPLICATIONS Qualifiers: Diabetes mellitus type: type 2 (12) Leg edema Code(s): R60.0 - LOCALIZED EDEMA (13) MARTIN treated with BiPAP Code(s): G47.33 - OBSTRUCTIVE SLEEP APNEA (ADULT) (PEDIATRIC) (14) Obesity Code(s): E66.9 - OBESITY, UNSPECIFIED (15) PVD (peripheral vascular disease) Code(s): I73.9 - PERIPHERAL VASCULAR DISEASE, UNSPECIFIED Assessment/Plan Assessment/Plan Acute on Chronic Hypoxic and Hypercapneic Respiratory Failure improving Acute COPD Exacerbation slowly improving Cellulitis LV Diastolic Dysfunction HTN DM Hyperlipidemia PAD h/o CVA Smoker - antibiotics - continue medrol taper - inhaled bronchodilators standing and PRN - O2 to keep SpO2 >85% - BiPAP as needed - smoking cessation - DVT prophylaxis DR GREEN
--- NOTE | 2018-07-17 15:22 | PN ---
Progress Note (short form) - Note Progress Note: doing well Vital Signs Period Temp Pulse Resp BP Sys/Mullen Pulse Ox Last 24 Hr 97.1 F-97.8 F 46-86 18-20 130-159/61-80 94-98 cor-rrr lungs clear abd soft, nt ext skin peeling both feet with new skin underneath no purulence some erythema still present CBC, BMP 07/16/18 06:00 07/17/18 06:00 a/p cellulitis-day #7 vancomycin improved will switch to po doxycycline 100 mg po bid for 7 day with probiotic for one month copd- management per pulmonary ?po steroids history of MRSA Problem List - Problems (1) Cellulitis of leg Code(s): L03.119 - CELLULITIS OF UNSPECIFIED PART OF LIMB Qualifiers: Laterality: unspecified laterality Qualified Code(s): L03.119 - Cellulitis of unspecified part of limb (2) Chronic venous stasis dermatitis of both lower extremities Code(s): I83.11 - VARICOSE VEINS OF RIGHT LOWER EXTREMITY WITH INFLAMMATION; I83.12 - VARICOSE VEINS OF LEFT LOWER EXTREMITY WITH INFLAMMATION (3) Karla rash of groin Code(s): B37.89 - OTHER SITES OF CANDIDIASIS (4) MRSA (methicillin resistant staph aureus) culture positive Code(s): Z22.322 - CARRIER OR SUSPECTED CARRIER OF METHICILLIN RESIS STAPH
[2018-07-17] MEDS: DOXYCYCLINE HYCLATE 100 MG CAPSULE PO SCH (17:56)
--- NOTE | 2018-07-17 18:23 | PN ---
Progress Note, Physician History of Present Illness: Pt w/o fever, chills, SOB, CP, palp, dizziness, abd pain. - Current Medication List Current Medications: Active Medications Acetaminophen (Tylenol -) 325 mg PO Q12H PRN PRN Reason: PAIN LEVEL 1 - 3 Last Admin: 07/16/18 01:33 Dose: 325 mg Albuterol Sulfate (Ventolin 0.083% Nebulizer Soln -) 1 amp NEB Q6H PRN PRN Reason: WHEEZING Last Admin: 07/17/18 16:41 Dose: 1 amp Aspirin (Asa -) 81 mg PO DAILY [facility] Last Admin: 07/17/18 10:11 Dose: 81 mg Budesonide/Formoterol Fumarate (Symbicort 160/4.5mcg -) 1 puff IH BID [facility] Last Admin: 07/17/18 10:13 Dose: 1 puff Cholecalciferol (Vitamin D3 -) 1,000 unit PO DAILY [facility] Last Admin: 07/17/18 10:12 Dose: 1,000 unit Citalopram Hydrobromide (Celexa -) 10 mg PO DAILY [facility] Last Admin: 07/17/18 10:14 Dose: 10 mg Clopidogrel Bisulfate (Plavix -) 75 mg PO DAILY [facility] Last Admin: 07/17/18 10:13 Dose: 75 mg Cyanocobalamin (Vitamin B12 -) 50 mcg PO DAILY [facility] Last Admin: 07/17/18 10:12 Dose: 50 mcg Doxycycline Hyclate (Vibramycin -) 100 mg PO BID@1000,1800 [facility] Last Admin: 07/17/18 17:56 Dose: 100 mg Fluocinonide (Lidex 0.05% Cream -) 1 applic TP DAILY [facility] Last Admin: 07/17/18 10:15 Dose: 1 applic Heparin Sodium (Porcine) (Heparin -) 5,000 unit SQ BID [facility] Last Admin: 07/17/18 10:14 Dose: 5,000 unit Insulin Aspart (Novolog Vial Sliding Scale -) 1 vial SQ [facility]; Protocol Last Admin: 07/17/18 16:59 Dose: 8 units Insulin Detemir (Levemir Vial) 12 units SQ BID@0700,2200 [facility] Lactic Acid (Lac-Hydrin 12) 1 applic TP DAILY [facility] Last Admin: 07/17/18 10:15 Dose: 1 applic Lactobacillus Acidophilus (Bacid -) 1 tab PO DAILY [facility] Last Admin: 07/17/18 10:11 Dose: 1 tab Methylprednisolone Sodium Succinate (Solu-Medrol -) 30 mg IVPUSH BID [facility] Last Admin: 07/17/18 10:05 Dose: 30 mg Nystatin (Mycostatin Cream -) 1 applic TP BID [facility] Last Admin: 07/17/18 10:13 Dose: 1 applic Nystatin (Nystop Powder -) 1 applic TP DAILY [facility] Last Admin: 07/17/18 10:15 Dose: 1 applic - Objective Vital Signs: Vital Signs Temperature 97.8 F 07/17/18 10:18 Pulse Rate 70 07/17/18 10:18 Respiratory Rate 18 07/17/18 10:18 Blood Pressure 130/61 07/17/18 10:18 O2 Sat by Pulse Oximetry (%) 97 07/17/18 10:38 Constitutional: Yes: No Distress, Calm Cardiovascular: Yes: Regular Rate and Rhythm, S1, S2 Respiratory: Yes: Regular, Rales Gastrointestinal: Yes: Normal Bowel Sounds, Soft. No: Tenderness Edema: No Neurological: Yes: Alert, Oriented Labs: CBC, BMP 07/16/18 06:00 07/17/18 06:00 Problem List - Problems (1) COPD with acute exacerbation Code(s): J44.1 - CHRONIC OBSTRUCTIVE PULMONARY DISEASE W (ACUTE) EXACERBATION (2) Cellulitis of leg Code(s): L03.119 - CELLULITIS OF UNSPECIFIED PART OF LIMB Qualifiers: Laterality: unspecified laterality Qualified Code(s): L03.119 - Cellulitis of unspecified part of limb (3) THERESA (acute kidney injury) Code(s): N17.9 - ACUTE KIDNEY FAILURE, UNSPECIFIED (4) Karla rash of groin Code(s): B37.89 - OTHER SITES OF CANDIDIASIS (5) CHF (congestive heart failure) Code(s): I50.9 - HEART FAILURE, UNSPECIFIED (6) Acute on chronic respiratory failure with hypoxia and hypercapnia Code(s): J96.21 - ACUTE AND CHRONIC RESPIRATORY FAILURE WITH HYPOXIA; J96.22 - ACUTE AND CHRONIC RESPIRATORY FAILURE WITH HYPERCAPNIA (7) Diabetes mellitus, insulin dependent (IDDM), uncontrolled Code(s): E10.65 - TYPE 1 DIABETES MELLITUS WITH HYPERGLYCEMIA (8) Leg edema Code(s): R60.0 - LOCALIZED EDEMA (9) MARTIN treated with BiPAP Code(s): G47.33 - OBSTRUCTIVE SLEEP APNEA (ADULT) (PEDIATRIC) (10) PVD (peripheral vascular disease) Code(s): I73.9 - PERIPHERAL VASCULAR DISEASE, UNSPECIFIED (11) Hyperkalemia Code(s): E87.5 - HYPERKALEMIA Assessment/Plan Pt to be switched to PO abtx Pt on IV steroids-tappered (by Pulmonary). Cont BIPAP- benefits were reviewed ID, Pulmonary, Cardio, Renal consults are appreciated. AM labs I spoke with pt's about pt's condition and disposition- aware that he might be discharge home in 1 or 2 days, as medications would be changed to pills ; she is requesting VNS for would care (appropriate). Case was d/w his nurse.
[2018-07-17] MEDS: INSULIN (LEVEMIR) 100 UNITS/ML UNITS SQ SCH (21:49)
[2018-07-18] MEDS: INSULIN (LEVEMIR) 100 UNITS/ML UNITS SQ SCH (07:06)
[2018-07-18] MEDS: INSULIN SLIDING SCALE (NOVOLOG) 1 VIAL SQ SCH ×2 (07:07→11:57)
[2018-07-18] MEDS ORDERED: INSULIN (NOVOLOG) ASPART 100 UNITS/ML 10ML VIAL ONE ×2 (07:14→11:49)
[2018-07-18] MEDS: ALBUTEROL SO4 0.083% IH SOL 2.5 MG/3 ML VIAL.NEB. NEB PRN (07:37)
[2018-07-18] MEDS: CITALOPRAM HYDROBROMIDE 10 MG TABLET (FP) PO SCH (09:22)
[2018-07-18] MEDS: CHOLECALCIFEROL (VITAMIN D3) 1,000 UNIT TABLET (FP) PO SCH (09:22)
[2018-07-18] MEDS: methylPREDNISolone NA SUCC 40 MG/1 ML VIAL IVPUSH SCH (09:22)
[2018-07-18] MEDS: CLOPIDOGREL BISULFATE 75 MG TABLET (FP) PO SCH (09:22)
[2018-07-18] MEDS: LACTOBACILLUS ACIDOPHILUS 1 TABLET PO SCH (09:22)
[2018-07-18] MEDS: HEPARIN NA (PORCINE) 5,000 UNITS/ML 1ML VIAL SQ SCH (09:22)
[2018-07-18] MEDS: ASPIRIN 81 MG CHEWABLE TABLETS PO SCH (09:22)
[2018-07-18] MEDS: CYANOCOBALAMIN (VITAMIN B-12) 100 MCG TABLET PO SCH (09:23)
[2018-07-18] MEDS: DOXYCYCLINE HYCLATE 100 MG CAPSULE PO SCH (09:23)
[2018-07-18] MEDS: BUDESONIDE/FORMETEROL FUMARATE 160/4.5 mcg INHALER IH SCH (09:23)
[2018-07-18] MEDS: NYSTATIN 100,000 UNIT/GM TOPICAL CREAM 15 GM TUBE TP SCH (09:24)
[2018-07-18] MEDS: AMMONIUM LACTATE 12% LOTION 225 GM BOTTLE TP SCH (09:32)
[2018-07-18] MEDS: FLUOCINONIDE 0.05% CREAM (15 GM TUBE) TP SCH (09:32)
[2018-07-18] MEDS: NYSTATIN POWDER 100,000 UNITS/GM - 15 GM TOPICAL POWDER TP SCH (09:32)
--- NOTE | 2018-07-18 11:07 | PN ---
Progress Note, Physician History of Present Illness: pulmonary alert,sitting up in bed,comfortable,-resp distress - Current Medication List Current Medications: Active Medications Acetaminophen (Tylenol -) 325 mg PO Q12H PRN PRN Reason: PAIN LEVEL 1 - 3 Last Admin: 07/16/18 01:33 Dose: 325 mg Albuterol Sulfate (Ventolin 0.083% Nebulizer Soln -) 1 amp NEB Q6H PRN PRN Reason: WHEEZING Last Admin: 07/18/18 07:37 Dose: 1 amp Aspirin (Asa -) 81 mg PO DAILY [facility] Last Admin: 07/18/18 09:22 Dose: 81 mg Budesonide/Formoterol Fumarate (Symbicort 160/4.5mcg -) 1 puff IH BID [facility] Last Admin: 07/18/18 09:23 Dose: 1 puff Cholecalciferol (Vitamin D3 -) 1,000 unit PO DAILY [facility] Last Admin: 07/18/18 09:22 Dose: 1,000 unit Citalopram Hydrobromide (Celexa -) 10 mg PO DAILY [facility] Last Admin: 07/18/18 09:22 Dose: 10 mg Clopidogrel Bisulfate (Plavix -) 75 mg PO DAILY [facility] Last Admin: 07/18/18 09:22 Dose: 75 mg Cyanocobalamin (Vitamin B12 -) 50 mcg PO DAILY [facility] Last Admin: 07/18/18 09:23 Dose: 50 mcg Doxycycline Hyclate (Vibramycin -) 100 mg PO BID@1000,1800 [facility] Last Admin: 07/18/18 09:23 Dose: 100 mg Fluocinonide (Lidex 0.05% Cream -) 1 applic TP DAILY [facility] Last Admin: 07/18/18 09:32 Dose: 1 applic Heparin Sodium (Porcine) (Heparin -) 5,000 unit SQ BID [facility] Last Admin: 07/18/18 09:22 Dose: 5,000 unit Insulin Aspart (Novolog Vial Sliding Scale -) 1 vial SQ ACHS [facility]; Protocol Last Admin: 07/18/18 07:07 Dose: 2 units Insulin Detemir (Levemir Vial) 12 units SQ BID@0700,2200 [facility] Last Admin: 07/18/18 07:06 Dose: 12 units Lactic Acid (Lac-Hydrin 12) 1 applic TP DAILY [facility] Last Admin: 07/18/18 09:32 Dose: 1 applic Lactobacillus Acidophilus (Bacid -) 1 tab PO DAILY [facility] Last Admin: 07/18/18 09:22 Dose: 1 tab Methylprednisolone Sodium Succinate (Solu-Medrol -) 30 mg IVPUSH BID [facility] Last Admin: 07/18/18 09:22 Dose: 30 mg Nystatin (Mycostatin Cream -) 1 applic TP BID [facility] Last Admin: 07/18/18 09:24 Dose: 1 applic Nystatin (Nystop Powder -) 1 applic TP DAILY [facility] Last Admin: 07/18/18 09:32 Dose: 1 applic - Objective Vital Signs: Vital Signs Temperature 98.4 F 07/18/18 09:01 Pulse Rate 80 07/18/18 09:01 Respiratory Rate 20 07/18/18 09:01 Blood Pressure 156/78 07/18/18 09:01 O2 Sat by Pulse Oximetry (%) 98 07/17/18 21:00 Constitutional: Yes: Well Nourished, Calm Eyes: Yes: WNL HENT: Yes: WNL Neck: Yes: WNL Cardiovascular: Yes: Regular Rate and Rhythm, S1, S2 Respiratory: Yes: Diminished Gastrointestinal: Yes: Normal Bowel Sounds, Soft Extremities: Yes: Other (rle wrapped) Edema: Yes Labs: Problem List - Problems (1) Acute on chronic respiratory failure with hypoxia and hypercapnia Code(s): J96.21 - ACUTE AND CHRONIC RESPIRATORY FAILURE WITH HYPOXIA; J96.22 - ACUTE AND CHRONIC RESPIRATORY FAILURE WITH HYPERCAPNIA (2) Cellulitis of leg Code(s): L03.119 - CELLULITIS OF UNSPECIFIED PART OF LIMB Qualifiers: Laterality: unspecified laterality Qualified Code(s): L03.119 - Cellulitis of unspecified part of limb (3) Altered mental state Code(s): R41.82 - ALTERED MENTAL STATUS, UNSPECIFIED Qualifiers: Altered mental status type: transient alteration of awareness Qualified Code(s): R40.4 - Transient alteration of awareness (4) COPD (chronic obstructive pulmonary disease) Code(s): J44.9 - CHRONIC OBSTRUCTIVE PULMONARY DISEASE, UNSPECIFIED Qualifiers: COPD type: COPD with acute exacerbation Qualified Code(s): J44.1 - Chronic obstructive pulmonary disease with (acute) exacerbation (5) Chronic renal disease Code(s): N18.9 - CHRONIC KIDNEY DISEASE, UNSPECIFIED (6) Chronic venous stasis dermatitis of both lower extremities Code(s): I83.11 - VARICOSE VEINS OF RIGHT LOWER EXTREMITY WITH INFLAMMATION; I83.12 - VARICOSE VEINS OF LEFT LOWER EXTREMITY WITH INFLAMMATION (7) Hypoxia Code(s): R09.02 - HYPOXEMIA (8) Sleep apnea Code(s): G47.30 - SLEEP APNEA, UNSPECIFIED (9) CAD (coronary artery disease) Code(s): I25.10 - ATHSCL HEART DISEASE OF [place] CORONARY ARTERY W/O ANG PCTRS (10) COPD (chronic obstructive pulmonary disease) with chronic bronchitis Code(s): J44.9 - CHRONIC OBSTRUCTIVE PULMONARY DISEASE, UNSPECIFIED (11) Diabetes Code(s): E11.9 - TYPE 2 DIABETES MELLITUS WITHOUT COMPLICATIONS Qualifiers: Diabetes mellitus type: type 2 (12) Leg edema Code(s): R60.0 - LOCALIZED EDEMA (13) MARTIN treated with BiPAP Code(s): G47.33 - OBSTRUCTIVE SLEEP APNEA (ADULT) (PEDIATRIC) (14) Obesity Code(s): E66.9 - OBESITY, UNSPECIFIED (15) PVD (peripheral vascular disease) Code(s): I73.9 - PERIPHERAL VASCULAR DISEASE, UNSPECIFIED Assessment/Plan Assessment/Plan Acute on Chronic Hypoxic and Hypercapneic Respiratory Failure improved Acute COPD Exacerbation improved Cellulitis LV Diastolic Dysfunction HTN DM Hyperlipidemia PAD h/o CVA Smoker - antibiotics as per ID - prednisone - inhaled bronchodilators standing and PRN - O2 to keep SpO2 >85% - BiPAP as needed - smoking cessation - DVT prophylaxis DR GREEN
--- NOTE | 2018-07-18 12:11 | PN ---
Progress Note (short form) - Note Progress Note: s: no cp, sob, palps dizziness o: Vital Signs Period Temp Pulse Resp BP Sys/Mullen Pulse Ox Last 24 Hr 97.7 F-98.4 F 68-80 18-20 153-156/71-78 98-99 Constitutional: Yes: No Distress, Calm Eyes: Yes: Conjunctiva Clear Neck: Yes: Supple, Trachea Midline Respiratory: Yes: On Nasal O2, Wheezes, Other (prolonged expiratory phase with scattered wheezes with expiration) Gastrointestinal: Yes: Normal Bowel Sounds, Soft Cardiovascular: Yes: Regular Rate and Rhythm JVD: No Heart Sounds: Yes: S1, S2 Extremities: Yes: Erythema, Other (erythema bilateral feet, bandages bilaterally ) Edema: Yes Edema: trace Neurological: Yes: Alert, Oriented Current Medications Acetaminophen (Tylenol -) 325 mg PO Q12H PRN PRN Reason: PAIN LEVEL 1 - 3 Last Admin: 07/16/18 01:33 Dose: 325 mg Albuterol Sulfate (Ventolin 0.083% Nebulizer Soln -) 1 amp NEB Q6H PRN PRN Reason: WHEEZING Last Admin: 07/18/18 07:37 Dose: 1 amp Aspirin (Asa -) 81 mg PO DAILY [facility] Last Admin: 07/18/18 09:22 Dose: 81 mg Budesonide/Formoterol Fumarate (Symbicort 160/4.5mcg -) 1 puff IH BID [facility] Last Admin: 07/18/18 09:23 Dose: 1 puff Cholecalciferol (Vitamin D3 -) 1,000 unit PO DAILY [facility] Last Admin: 07/18/18 09:22 Dose: 1,000 unit Citalopram Hydrobromide (Celexa -) 10 mg PO DAILY [facility] Last Admin: 07/18/18 09:22 Dose: 10 mg Clopidogrel Bisulfate (Plavix -) 75 mg PO DAILY [facility] Last Admin: 07/18/18 09:22 Dose: 75 mg Cyanocobalamin (Vitamin B12 -) 50 mcg PO DAILY [facility] Last Admin: 07/18/18 09:23 Dose: 50 mcg Doxycycline Hyclate (Vibramycin -) 100 mg PO BID@1000,1800 [facility] Last Admin: 07/18/18 09:23 Dose: 100 mg Fluocinonide (Lidex 0.05% Cream -) 1 applic TP DAILY [facility] Last Admin: 07/18/18 09:32 Dose: 1 applic Heparin Sodium (Porcine) (Heparin -) 5,000 unit SQ BID [facility] Last Admin: 07/18/18 09:22 Dose: 5,000 unit Insulin Aspart (Novolog Vial Sliding Scale -) 1 vial SQ ACHS [facility]; Protocol Last Admin: 07/18/18 11:57 Dose: 6 units Insulin Detemir (Levemir Vial) 12 units SQ BID@0700,2200 [facility] Last Admin: 07/18/18 07:06 Dose: 12 units Lactic Acid (Lac-Hydrin 12) 1 applic TP DAILY [facility] Last Admin: 07/18/18 09:32 Dose: 1 applic Lactobacillus Acidophilus (Bacid -) 1 tab PO DAILY [facility] Last Admin: 07/18/18 09:22 Dose: 1 tab Nystatin (Mycostatin Cream -) 1 applic TP BID [facility] Last Admin: 07/18/18 09:24 Dose: 1 applic Nystatin (Nystop Powder -) 1 applic TP DAILY [facility] Last Admin: 07/18/18 09:32 Dose: 1 applic Prednisone (Deltasone -) 40 mg PO DAILY [facility] Assessment/Plan echo 12/2016: nl lv/rv, mild lae, mild mr, mild-mod tr, possible mild as, mild phtn exercise mibi 01/02: no ischemia at 80% mphr cxr: no acute process EKG: sinus, LBBB, mobitz 1 (similar to prior EKG from 2016; EKG from 05/2018 sinus, 1st deg AVB, LBBB) a/p: 68 m hx htn, hld, dm, obesity, tia 2003, lbbb, dchf/venous insuff, recurrent le cellulitis, mobitz 1 avb and first degree avb, pad s/p left fem- pop bypass, smoking, copd, here with le cellulitis, hypoxia Abnormal EKG, mobitz 1 - chronic finding, has had prior event monitors in clinic showing mobitz 1 without significant pauses - noted on prior EKGs here - avoid AV arsh blocking agents - remains stable from cardiac perspective Hypoxia, COPD - denies dyspnea, sats improved - has h/o diastolic CHF however on exam appears euvolemic - exam more consistent with COPD exacerbation, pulm following chronic venous insuff/LE edema, recurrent cellulitis: - vasc surgery, Dr. Cordon/wound team consulted - on IV abx, ID following PAD: -prior h/o left fem-pop bypass, cont dapt, statin chronic diastolic CHF -echoes have been unremarkable or very TDS in past, most recent 12/2016 was unremarkable -holding home torsemide, euvolemic htn: -stable, controlled hld: -cont statin h/o TIA (2003): -on ASA, statin for sec prevention, cont same
--- NOTE | 2018-07-18 12:45 | DS ---
Physical Examination Vital Signs: Vital Signs Temperature 98.4 F 07/18/18 09:01 Pulse Rate 80 07/18/18 09:01 Respiratory Rate 20 07/18/18 09:01 Blood Pressure 156/78 07/18/18 09:01 O2 Sat by Pulse Oximetry (%) 98 07/17/18 21:00 Findings/Remarks: Pt w/on fever, chills, SOB, CP, palpitations, abd pain, leg pain Constitutional: Yes: No Distress, Calm Cardiovascular: Yes: Regular Rate and Rhythm, S1, S2 Respiratory: Yes: Regular, Rhonchi (scattered, minimal) Gastrointestinal: Yes: Normal Bowel Sounds, Soft, Abdomen, Obese. No: Tenderness Edema: LLE: Trace, RLE: Trace Neurological: Yes: Alert, Oriented Labs: CBC, BMP 07/16/18 06:00 07/17/18 06:00 Discharge Summary Reason For Visit: ACUTE KIDNEY INJURY; MOBITZ TYPE I [facility] Current Active Problems THERESA (acute kidney injury) (Acute) Acute on chronic respiratory failure with hypoxia and hypercapnia (Acute) CHF (congestive heart failure) (Acute) COPD with acute exacerbation (Acute) Karla rash of groin (Acute) Cellulitis of leg (Acute) Hyperkalemia (Acute) Procedures: Principal: CXR Hospital Course: Pt came to the hospital for SOB, found to be in Acute COPD exacerbation, started on IV Solu-Medrol. Pt also was norticed to have LE celulitis, starte don IV antibiotics. Pt was also noticed to have THERESA. Pt was seen in consult by Pulmonary (Dr. FINCH/ Oscar), Cardio ( Dr. Greer), ID (Dr. Norman), SUrgery ( Dr. Cordon), Renal (Dr. Escobedo). Pt conditions improved slowly. Pt to be DC'ed home with VNS, f/u with [facility], f/u with specialists. Condition: Improved - Instructions Diet, Activity, Other Instructions: Resume ADA, Low salt, Low cholesterol diet. BGM before meals and HS. Resume [facility] care Referrals: Liyah Louise MD [Primary Care Provider] - (within one week) - Home Medications Comprehensive Discharge Medication List: Ambulatory Orders See DC instructions
[2018-07-18] MEDS ORDERED: INSULIN (LEVEMIR) 100 UNITS/ML UNITS SQ SCH (12:52)
--- NOTE | 2018-07-18 13:15 | PN ---
Progress Note (short form) - Note Progress Note: Renal Follow up for THERESA Pt seen and examined at the bedside no complaints no sob, cp, abd pain wants cookies Vital Signs Temperature 98.4 F 07/18/18 09:01 Pulse Rate 80 07/18/18 09:01 Respiratory Rate 20 07/18/18 09:01 Blood Pressure 156/78 07/18/18 09:01 O2 Sat by Pulse Oximetry (%) 98 07/17/18 21:00 Intake & Output 07/15/18 07/16/18 07/17/18 07/18/18 23:59 23:59 23:59 23:59 Intake Total 550 150 590 Output Total 1050 400 200 Balance -500 -250 390 Weight 114.759 kg NAD RRR, No M/R Dec BS, no rales or wheeze soft NT/ND trace edema in LE, + erythema in both legs, improved CBC, BMP 07/16/18 06:00 07/17/18 06:00 Current Medications Acetaminophen (Tylenol -) 325 mg PO Q12H PRN PRN Reason: PAIN LEVEL 1 - 3 Last Admin: 07/16/18 01:33 Dose: 325 mg Albuterol Sulfate (Ventolin 0.083% Nebulizer Soln -) 1 amp NEB Q6H PRN PRN Reason: WHEEZING Last Admin: 07/18/18 07:37 Dose: 1 amp Aspirin (Asa -) 81 mg PO DAILY [facility] Last Admin: 07/18/18 09:22 Dose: 81 mg Budesonide/Formoterol Fumarate (Symbicort 160/4.5mcg -) 1 puff IH BID [facility] Last Admin: 07/18/18 09:23 Dose: 1 puff Cholecalciferol (Vitamin D3 -) 1,000 unit PO DAILY [facility] Last Admin: 07/18/18 09:22 Dose: 1,000 unit Citalopram Hydrobromide (Celexa -) 10 mg PO DAILY [facility] Last Admin: 07/18/18 09:22 Dose: 10 mg Clopidogrel Bisulfate (Plavix -) 75 mg PO DAILY [facility] Last Admin: 07/18/18 09:22 Dose: 75 mg Cyanocobalamin (Vitamin B12 -) 50 mcg PO DAILY [facility] Last Admin: 07/18/18 09:23 Dose: 50 mcg Doxycycline Hyclate (Vibramycin -) 100 mg PO BID@1000,1800 [facility] Last Admin: 07/18/18 09:23 Dose: 100 mg Fluocinonide (Lidex 0.05% Cream -) 1 applic TP DAILY [facility] Last Admin: 07/18/18 09:32 Dose: 1 applic Heparin Sodium (Porcine) (Heparin -) 5,000 unit SQ BID [facility] Last Admin: 07/18/18 09:22 Dose: 5,000 unit Insulin Aspart (Novolog Vial Sliding Scale -) 1 vial SQ ACHS [facility]; Protocol Last Admin: 07/18/18 11:57 Dose: 6 units Insulin Detemir (Levemir Vial) 14 units SQ BID@0700,2200 [facility] Lactic Acid (Lac-Hydrin 12) 1 applic TP DAILY [facility] Last Admin: 07/18/18 09:32 Dose: 1 applic Lactobacillus Acidophilus (Bacid -) 1 tab PO DAILY [facility] Last Admin: 07/18/18 09:22 Dose: 1 tab Nystatin (Mycostatin Cream -) 1 applic TP BID [facility] Last Admin: 07/18/18 09:24 Dose: 1 applic Nystatin (Nystop Powder -) 1 applic TP DAILY [facility] Last Admin: 07/18/18 09:32 Dose: 1 applic Prednisone (Deltasone -) 40 mg PO DAILY [facility] 68 year old gentleman with history of CVA, Hypertension, Hyperlipidemia, COPD on O2, CKD (? baseline, noted to have hx of THERESA in the past ), PVD, Heart block who presented from the [place] with hypoxia and Le cellulitis. #THERESA likely due to mild volume depletion (high BUN/Cr ratio, on diuretics, concurrent infection) #COPD exacerbation #LE cellulitis #Hypertension #Anemia #DM on insulin Renal function is improved and stable, pt is non-oliguric can resume oral diuretics upon discharge at home advised to maintain good oral intake should follow up with PMD in 1 week to have repeat labs stable for discharge Kartik Escobedo DO
[2018-07-18 15:12] VITALS: BP 148/76; PULSE 76; TEMP 98.3
[2018-07-19] MEDS ORDERED: predniSONE 20 MG TABLET (UD) PO SCH (10:00)
== END 2018-07-18 17:00 | disposition home health service (06) | DRG 602 ==
LOC: JER 13:05 → JERBED 15:59 → J4S 07-11 18:05
PROVIDERS: ADMIT Internal Medicine; ATTEND Internal Medicine
DX: L03.115 Cellulitis of right lower limb (principal); J96.21 Acute and chronic respiratory failure with hypoxia; J96.22 Acute and chronic respiratory failure with hypercapnia; J44.1 Chronic obstructive pulmonary disease with (acute) exacerbation; N17.9 Acute kidney failure, unspecified; L97.918 Non-pressure chronic ulcer of unspecified part of right lower leg with other specified severity; I13.0 Hypertensive heart and chronic kidney disease with heart failure and stage 1 through stage 4 chronic kidney disease, or unspecified chronic kidney disease; I50.32 Chronic diastolic (congestive) heart failure; L03.116 Cellulitis of left lower limb; I25.10 Atherosclerotic heart disease of native coronary artery without angina pectoris; E78.5 Hyperlipidemia, unspecified; I12.9 Hypertensive chronic kidney disease with stage 1 through stage 4 chronic kidney disease, or unspecified chronic kidney disease; E11.22 Type 2 diabetes mellitus with diabetic chronic kidney disease; N18.9 Chronic kidney disease, unspecified; F17.210 Nicotine dependence, cigarettes, uncomplicated; E11.622 Type 2 diabetes mellitus with other skin ulcer; R21 Rash and other nonspecific skin eruption; I44.0 Atrioventricular block, first degree; E11.51 Type 2 diabetes mellitus with diabetic peripheral angiopathy without gangrene; I44.7 Left bundle-branch block, unspecified; D64.9 Anemia, unspecified; I27.20 Pulmonary hypertension, unspecified; R60.0 Localized edema; G47.33 Obstructive sleep apnea (adult) (pediatric); E66.9 Obesity, unspecified; Z68.34 Body mass index [BMI] 34.0-34.9, adult; Z79.4 Long term (current) use of insulin; Z99.81 Dependence on supplemental oxygen; Z86.73 Personal history of transient ischemic attack (TIA), and cerebral infarction without residual deficits; Z22.322 Carrier or suspected carrier of Methicillin resistant Staphylococcus aureus
CPT/HCPCS: 36415; 36600; 71045-TC-FY; 80048; 80053; 81003; 82550; 82570; 82728; 82803; 82947; 82962; 83540; 83550; 83735; 83880; 84100; 84156; 84300; 84443; 84484; 84540; 85025; 85027; 90688; 93005; 93010; 94640; 94660; 99285-25; G0008; G0480; J1644; J7030

== ENCOUNTER 2018-08-15 14:42 | Inpatient (IN) | payer OTHER ==
--- NOTE | 2018-08-15 15:41 | PDOC ---
History of Present Illness - General Chief Complaint: Pain Stated Complaint: LEFT SIDE PAIN Time Seen by Provider: 08/15/18 14:58 History Source: Patient, Spouse Exam Limitations: No Limitations - History of Present Illness Initial Comments: 08/15/18 15:49 68 year old past medical history of CVA, CAD, HTN, HLD, COPD (3L O2), CKD, DM, chronic bilateral leg cellulitis comes to the ED after unwitnessed fall at 0700 today. Patient on ASA and plavix. Denies loss of consciousness, head trauma, neck pain. The patient has had 3 falls for the past 1 week. The notes that 4 days ago she found the patient on the floor and does not know how long he had been down. 3 days ago the witnessed the patient walking without his walker and start to fall down while in the kitchen. She caught the patient before he fell to the ground. This AM the found the patient on the ground at 0700 and does not know how long he had been down. 1000 the patient began complaining of L sided chest pain that is worse with movement and with deep breathing. The patient denies chest pain, abdominal pain, N/V, diarrhea, constipation or urinary tract infection. He has no other complaints at bedside. PMHX: as in HPI Meds: see below Allergies: amoxicillin, potassium clavulanate Tob: Etoh: Rec drugs: PCP: Dani/Leonard Past History - Past Medical History Allergies/Adverse Reactions: Allergies Allergy/AdvReac Type Severity Reaction Status Date / Time amoxicillin trihydrate Allergy Unknown Verified 07/10/18 13:29 [From Augmentin] potassium clavulanate Allergy Unknown Verified 07/10/18 13:29 [From Augmentin] Home Medications: Ambulatory Orders Aspirin [ASA -] 81 mg PO DAILY 08/15/18 Atorvastatin Ca [Lipitor] 20 mg PO HS 08/15/18 Citalopram Hydrobromide [Citalopram HBr] 40 mg PO DAILY 08/15/18 Clopidogrel Bisulfate [Clopidogrel] 75 mg PO DAILY 08/15/18 Insulin (Levemir) [Levemir Vial] 14 unit SQ BID 08/15/18 Torsemide [Demadex -] 10 mg PO DAILY 08/15/18 Vit B12/Folic Acid/B6/Aa No.15 [Glycotrol Capsule] 1 each PO DAILY 08/15/18 Acetaminophen [Tylenol .Regular Strength -] 650 mg PO Q6H PRN tablet 08/24/18 Albuterol 0.083% Nebulizer Kala [Ventolin 0.083% Nebulizer Soln -] 1 amp NEB Q6H PRN amp 08/24/18 Budesonide/Formeterol Fumarate [SYMBICORT 160/4.5mcg -] 2 puff IH BID inhaler 08/24/18 Clindamycin [Cleocin -] 450 mg PO TID #21 capsule MDD 3 08/24/18 Heparin - 5,000 unit SQ BID vial 08/24/18 Insulin Sliding Scale [Novolog Vial Sliding Scale -] 1 vial SQ ACHS units 08/24 Lidocaine 5% Patch [Lidoderm -] 1 patch TP DAILY patch 08/24/18 Lidocaine Patch Removal [Lidoderm Patch Removal] 1 each MC DAILY@2200 each 12/10 Mineral Oil/Pet Hy-Phl [Aquaphor -] 1 applic TP BID jar 08/24/18 Nystatin/Triamcinolone Top Oin [Mycolog II -] 1 applic TP BID applic 08/24/18 Tiotropium [place] [Spiriva Respimat] 2 puff IH DAILY inhaler 08/24/18 oxyCODONE HCL [Roxicodone -] 5 mg PO Q6H PRN #40 tablet MDD 4 08/24/18 Anemia: No Cardiac Disorders: Yes (CAD, Left Fem-Pop Bypass) CVA: Yes (no deficit 5 years ago.) COPD: Yes CHF: No Dementia: No Diabetes: Yes GI Disorders: Yes Disorders: No HTN: Yes Hypercholesterolemia: Yes Liver Disease: No Seizures: No Thyroid Disease: No - Surgical History Abdominal Surgery: No Appendectomy: No Cardiac Surgery: Yes (LEFT FEM-POP BYPASS) Cholecystectomy: No Lung Surgery: No Neurologic Surgery: No Orthopedic Surgery: No - Immunization History Immunization Up to Date: No - Suicide/Smoking/Psychosocial Hx Smoking Status: Yes Smoking History: Never smoked Have you smoked in the past 12 months: Yes Number of Cigarettes Smoked Daily: 20 If you are a former smoker, when did you quit?: 6 months Information on smoking cessation initiated: No 'Breaking Loose' booklet given: 07/11/18 Hx Alcohol Use: No Drug/Substance Use Hx: No Substance Use Type: None Hx Substance Use Treatment: No Review of Systems - Review of Systems Able to Perform ROS?: Yes Is the patient limited Kazakh proficient: No Constitutional: No: Chills, Diaphoresis, Fever HEENTM: No: Blurred Vision, Tinnitus Respiratory: Yes: See HPI, Shortness of Breath. No: Cough, Orthopnea Cardiac (ROS): No: Chest Pain, Lightheadedness, Palpitations ABD/GI: No: Constipated, Diarrhea, Nausea, Vomiting : No: Burning, Dysuria, Hematuria Musculoskeletal: Yes: See HPI. No: Neck Pain Neurological: No: Headache, Numbness, Tingling *Physical Exam - Vital Signs Last Vital Signs Temp Pulse Resp BP Pulse Ox 98.6 F 86 20 145/65 96 08/15/18 14:44 08/15/18 14:44 08/15/18 14:44 08/15/18 14:44 08/15/18 14:44 - Physical Exam Comments: 08/15/18 17:18 GENERAL: Awake, alert, and fully oriented, in no acute distress HEAD: No signs of trauma, normocephalic, atraumatic EYES: EOMI, sclera anicteric, conjunctiva clear ENT: oropharynx clear without exudates. Moist mucosa NECK: Normal ROM, supple, no c spine tenderness LUNGS: No distress, speaks full sentences, anterior bilat expiratory wheeze, No tenderness to chest palpation HEART: RRR but distant heart sounds, normal S1 and S2, no murmurs, rubs or gallops, peripheral pulses normal and equal bilaterally. ABDOMEN: Soft, nontender, normoactive bowel sounds. No guarding, no rebound. No masses EXTREMITIES : + bilateral cellulitic appearance with R dorsal aspect sloughing of skin, blood blisters on arms. new and old bruising on abdomen and L flank NEUROLOGICAL: Cranial nerves II through XII grossly intact. Normal speech, no focal sensorimotor deficits SKIN: Warm, Dry, normal turgor, no rashes or lesions noted ED Treatment Course - LABORATORY CBC & Chemistry Diagram: 08/21/18 09:36 08/21/18 09:00 - RADIOLOGY Radiology Studies Ordered: Category Date Time Status CHEST X-RAY PORTABLE* [RAD] Stat Radiology 08/15/18 15:16 Ordered Medical Decision Making - Medical Decision Making 68 year old past medical history of CVA, CAD, HTN, HLD, COPD (3L O2), CKD, DM, chronic bilateral leg cellulitis comes to the ED after unwitnessed fall at 0700 today. Patient on ASA and plavix. Denies loss of consciousness, head trauma, neck pain. The patient has had 3 falls for the past 1 week. The notes that 4 days ago she found the patient on the floor and does not know how long he had been down. 3 days ago the witnessed the patient walking without his walker and start to fall down while in the kitchen. She caught the patient before he fell to the ground. This AM the found the patient on the ground at 0700 and does not know how long he had been down. 1000 the patient began complaining of L sided chest pain that is worse with movement and with deep breathing. The patient denies chest pain, abdominal pain, N/V, diarrhea, constipation or urinary tract infection. He has no other complaints at bedside. DDX including but not limited to: Fall: arrythmia vs electrolyte abnormality vs UTI vs syncope vs intracranial bleed vs ACS W/U: - cbc, cmp, PT/INR, PTT, cardiac profile, BNP, blood culture - CXR - ua, ucx - head CT, C spine CT TX: - Tylenol ED Course: Patient at baseline per . No acute distress. 08/15/18 17:09 Patient with several abdominal ecchymosis and with unwitnessed fall. Will r/o intrabdominal bleed. Abd, Chest CT w/o contrast ordered. Head CT: unremarkable. Cervical Spine CT: unremarkable CT Abd and Chest: unremarkable Patient admitted to medicine. *DC/Admit/Observation/Transfer Diagnosis at time of Disposition: Cellulitis of leg, Fall - Discharge Dispostion Disposition[facility] Condition at time of disposition: Improved Decision to Admit order: Yes - Referrals - Patient Instructions - Post Discharge Activity
[2018-08-15] MEDS ORDERED: ACETAMINOPHEN 1000 MG/100 ML VIAL (NON FORMULARY) IVPB ONE (15:54)
[2018-08-15] MEDS ORDERED: ACETAMINOPHEN INJECTION 100 ML IVPB ONE (17:04)
[2018-08-15 17:22] LABS: N-TERMINAL BNP 3358.7 pg/ml (5-125)
[2018-08-15 17:28] LABS: INR 1.1 (0.83-1.09)
[2018-08-15 17:31] LABS: ACTIVATED PTT 36.2 SECONDS (25.2-36.5)
[2018-08-15 17:37] LABS: ALBUMIN 3.1 g/dl (3.4-5.0); ALK PHOS 76 U/L (45-117); ANION GAP 1 MMOL/L (8-16); BILIRUBIN,TOTAL 0.5 mg/dL (0.2-1); BLOOD UREA NITROGEN 39 mg/dL (7-18); CALCIUM 8.4 mg/dL (8.5-10.1); CHLORIDE 107 mmol/L (98-107); CO2 37 mmol/L (21-32); CREATININE 1.4 mg/dL (0.55-1.3); GLUCOSE,RANDOM 89 mg/dL (74-106); POTASSIUM 5.2 mmol/L (3.5-5.1); SGOT/AST 14 U/L (15-37); SGPT/ALT 18 U/L (13-61); SODIUM 145 mmol/L (136-145); TOT PROT 6.5 g/dl (6.4-8.2)
[2018-08-15] MEDS ORDERED: CEFEPIME HCL/D5W 1 GM/50 ML BAG IVPB ONE (19:30)
[2018-08-15] MEDS ORDERED: VANCOMYCIN 1,500 MG in DEXTROSE 5%-WATER - 250 ML IVPB ONE (19:31)
[2018-08-15] MEDS ORDERED: VANCOMYCIN 1,500 MG in DEXTROSE 5%-WATER - 500 ML IVPB ONE (19:45)
--- NOTE | 2018-08-15 19:51 | PDOC ---
Attending Attestation - Resident Resident Name: Nubia Lackey - ED Attending Attestation I have performed the following: I have examined & evaluated the patient, The case was reviewed & discussed with the resident, I agree w/resident's findings & plan - HPI HPI: 08/15/18 19:46 Mr. Matthews is a 68 year old male with past medical history significant for CVA (5 years ago, no deficit), CAD (L. Fem-Pop bypass), HTN, HLD, COPD (on CPAP at night, on 3L O2 at home), DM, Chronic Renal failure and bilateral cellulitis (baseline ambulated with a wheelchair or a walker) Presents to the emergency department s/p an unwitnessed fall at 7:00 am in the morning. Per , she found the patient on the floor, she is unclear on how long patient was down, patient denies LOC or neck pain. Patient reports about 2 hours following the fall, he started to have have L. side rib pain, thats sharp in quality, thats aggravated with deep breathing. Per , patients been having multiple episodes of fall since Monday this week.. states on Monday, patient was trying ambulate without a walker, when he suffered a fall. The is unsure if prior falls were secondary to patient trying to ambulate without a walker. Denies fever, chills, cough, headache, weakness, numbness, tingling, loss of sensation, shortness of breath, chest pain, abdominal pain, dysuria, hematuria, frequency or urgency to urinate. Allergies: amoxicillin trihydrate and potassium clavulanate Medication: ASA and plavix Social history: Former smoker, no past or present use of alcohol or recreational drugs. Surgical history: Fem-pop bypass. PCP: Liyah Gomez MD - Physicial Exam PE: 08/15/18 19:46 NAD, well appearing, dry membranes, nl conjunctiva, anicteric; neck supple. left lateral chest wall tenderness, faint ecchymosis over anterior abdomen. lungs clear, RRR, abdomen soft obese nontender. PORTILLO x4, no focal neuro deficits. No peripheral edema. normal color for ethnicity, WWP. large desquamatizing wounds on BLE, with erythema and serosanguinous drainage, + malodorous, worse in RLE. - Medical Decision Making 08/15/18 19:48 DDx. trauma, rib fx, contusion, pleural effusion, intra abdominal injury, ICH/ CVA. fx/contusion, msk injury. infection, cellulitis, DVt. Vital signs reviewed, wnl. Prior notes reviewed, including admissions, discharges and consultations. laboratory results and imaging reviewed, basic labs and lytes wnl UA_neg for infection Cardiac panel_elevated bnp as expected with history, trop neg, less likely ACS. CK level_pending EKG normal sinus rhythm, LBBB, Nonspecific T wave abnormalities ED course: no acute events, remained stable and well appearing. on supp O2 chronically IV abx with cefepime and vancomcyin for lower extrem cellulitis and infection, will need wound care and PT eval given increased fall safety concerns. CT rodriguez scans to r/o injury given concerns for injury, results neg for injuries, LAD and cholelithiasis, copd changes. CT head neg for injuries or bleed, old CVA. C spine neg for fx. Dispo: Admit for to Dr Valle for IV abx, ID cs, PT eval. Discussed results and management plan with pt and family member at bedside, agree with impression and plan 08/21/18 01:37
[2018-08-15 20:59] LABS: BASO % 0.6 % (0-2.0); EOS % 4.6 % (0-4.5); HEMATOCRIT 39.3 % (35.4-49); HEMOGLOBIN 11.8 GM/dL (11.7-16.9); LYMPH % 6.2 % (8-40); MCH 23.9 pg (25.7-33.7); MEAN CELL VOLUME 79.8 fl (80-96); MEAN PLT VOLUME 8.6 fl (7.5-11.1); MONO % 9.9 % (3.8-10.2); NEUT % 78.7 % (42.8-82.8); PLATELET COUNT 196 K/MM3 (134-434); RBC 4.92 M/mm3 (4.00-5.60); RDW 22.5 % (11.9-15.9); WHITE BLOOD COUNT 6.1 K/mm3 (4.0-10.0)
[2018-08-15 22:16] LABS: ANISOCYTOSIS 1+
[2018-08-16] MEDS ORDERED: ALBUTEROL SO4 2.5/IPRATROPIUM 0.5 INH SOL 3 ML VIAL.NEB. NEB ONE (06:23)
[2018-08-16] MEDS: INSULIN SLIDING SCALE (NOVOLOG) 1 VIAL SQ SCH ×4 (08:39→22:48)
[2018-08-16] MEDS: INSULIN (LEVEMIR) 100 UNITS/ML UNITS SQ SCH ×2 (08:41→22:47)
--- NOTE | 2018-08-16 09:43 | EKG ---
Test Reason : Blood Pressure : / mmHG Vent. Rate : 074 BPM Atrial Rate : 117 BPM P-R Int : 000 ms QRS Dur : 148 ms QT Int : 448 ms P-R-T Axes : 000 -26 099 degrees QTc Int : 497 ms SINUS RHYTHM WITH MOBITZ I ([place]) BLOCK LEFT BUNDLE BRANCH BLOCK ABNORMAL ECG Confirmed by ARACELIS HORNE MD ([id number]) on 08/16/2018 9:43:35 AM Referred By: Confirmed By:ARACELIS HORNE MD
--- NOTE | 2018-08-16 10:06 | CONSULT ---
Consult - text type - Consultation Consultation Note: Neurology History of Present Illness 68 year old past medical history of CVA, CAD, HTN, HLD, COPD (3L O2), CKD, DM, chronic bilateral leg cellulitis comes to the ED after unwitnessed fall on day of admission. Patient on ASA and plavix. Denied loss of consciousness, head trauma, neck pain. The patient has had 3 falls reportedly in the past 1 week. 3 days prior the reportedly witnessed the patient walking without his walker and start to fall down while in the kitchen. She caught the patient before he fell to the ground. He was brought to the ER and CT head reviewed and discussed and though no acute changes, chronic R cerebellar and L basal ganglia infarct seen. These can contribute to gait instability. Also with cellulities with diabetes that may complicate patient's ambulation. Discussed with PCP. Past History - Past Medical History Allergies/Adverse Reactions: Allergies Allergy/AdvReac Type Severity Reaction Status Date / Time amoxicillin trihydrate Allergy Unknown Verified 07/10/18 13:29 [From Augmentin] potassium clavulanate Allergy Unknown Verified 07/10/18 13:29 [From Augmentin] Home Medications: Ambulatory Orders Aspirin [ASA -] 81 mg PO DAILY 08/15/18 Atorvastatin Ca [Lipitor] 20 mg PO HS 08/15/18 Citalopram Hydrobromide [Citalopram HBr] 40 mg PO DAILY 08/15/18 Clopidogrel Bisulfate [Clopidogrel] 75 mg PO DAILY 08/15/18 Insulin (Levemir) [Levemir Vial] 0 unit SQ DAILY 08/15/18 Torsemide [Demadex] 10 mg PO DAILY 08/15/18 Vit B12/Folic Acid/B6/Aa No.15 [Glycotrol Capsule] 1 each PO DAILY 08/15/18 Anemia: No Cardiac Disorders: Yes (CAD, Left Fem-Pop Bypass) CVA: Yes (no deficit 5 years ago.) COPD: Yes CHF: No Dementia: No Diabetes: Yes GI Disorders: Yes Disorders: No HTN: Yes Hypercholesterolemia: Yes Liver Disease: No Seizures: No Thyroid Disease: No - Surgical History Abdominal Surgery: No Appendectomy: No Cardiac Surgery: Yes (LEFT FEM-POP BYPASS) Cholecystectomy: No Lung Surgery: No Neurologic Surgery: No Orthopedic Surgery: No - Immunization History Immunization Up to Date: No - Suicide/Smoking/Psychosocial Hx Smoking Status: Yes Smoking History: Never smoked Have you smoked in the past 12 months: Yes Number of Cigarettes Smoked Daily: 20 If you are a former smoker, when did you quit?: 6 months Information on smoking cessation initiated: No 'Breaking Loose' booklet given: 07/11/18 Hx Alcohol Use: No Drug/Substance Use Hx: No Substance Use Type: None Hx Substance Use Treatment: No *Physical Exam Vital Signs Period Temp Pulse Resp BP Sys/Mullen Pulse Ox Last 24 Hr 97.4 F-98.6 F 68-87 18-20 123-145/52-75 96-98 Gen: Awake, alert, responds to questions Card: RRR, nml S1,S2 Resp: decreased breath sounds Abdomen: Soft, nontender, bowel sounds active Head atraumatic and normocephalic CN: PERRL, EOMI intact, no apparent facial droop, no abnormalities in facial sensation, palate elevates, uvula and tongue midline Motor: Full strength to confrontation in upper and lower extermities proximally and distally. Tone normal throughout Sensory: Decreased pinprick in distal lower extremities Reflexes: 1+ biceps, brachioradialis, patellar, achillies Coordination: Intact on [id number] testing Gait: Deferred CBCD WBC 6.1 K/mm3 (4.0-10.0) 08/15/18 16:33 RBC 4.92 M/mm3 (4.00-5.60) 08/15/18 16:33 Hgb 11.8 GM/dL (11.7-16.9) 08/15/18 16:33 Hct 39.3 % (35.4-49) 08/15/18 16:33 MCV 79.8 fl (80-96) L 08/15/18 16:33 MCHC 30.0 g/dl (32.0-35.9) L 08/15/18 16:33 RDW 22.5 % (11.9-15.9) H 08/15/18 16:33 Plt Count 196 K/MM3 (134-434) 08/15/18 16:33 MPV 8.6 fl (7.5-11.1) D 08/15/18 16:33 CMP Sodium 145 mmol/L (136-145) 08/15/18 16:33 Potassium 5.2 mmol/L (3.5-5.1) H 08/15/18 16:33 Chloride 107 mmol/L (98-107) 08/15/18 16:33 Carbon Dioxide 37 mmol/L (21-32) H 08/15/18 16:33 Anion Gap 1 MMOL/L (8-16) L 08/15/18 16:33 BUN 39 mg/dL (7-18) H 08/15/18 16:33 Creatinine 1.4 mg/dL (0.55-1.3) H 08/15/18 16:33 Creat Clearance w eGFR 50.55 (>60) 08/15/18 16:33 Random Glucose 89 mg/dL (74-106) 08/15/18 16:33 Calcium 8.4 mg/dL (8.5-10.1) L 08/15/18 16:33 Total Bilirubin 0.5 mg/dL (0.2-1) 08/15/18 16:33 AST 14 U/L (15-37) L 08/15/18 16:33 ALT 18 U/L (13-61) 08/15/18 16:33 Alkaline Phosphatase 76 U/L (45-117) 08/15/18 16:33 Total Protein 6.5 g/dl (6.4-8.2) 08/15/18 16:33 Albumin 3.1 g/dl (3.4-5.0) L 08/15/18 16:33 CARDIAC ENZYMES Creatine Kinase 74 IU/L (26-308) 08/15/18 17:36 Troponin I < 0.02 ng/ml (0.00-0.05) 08/15/18 17:36 Medical Decision Making 68 year old past medical history of CVA, CAD, HTN, HLD, COPD (3L O2), CKD, DM, chronic bilateral leg cellulitis comes to the ED after unwitnessed fall on day of admission. Patient on ASA and plavix. Denied loss of consciousness, head trauma, neck pain. The patient has had 3 falls reportedly in the past 1 week. 3 days prior the reportedly witnessed the patient walking without his walker and start to fall down while in the kitchen. She caught the patient before he fell to the ground. He was brought to the ER and CT head reviewed and discussed and though no acute changes, chronic R cerebellar and L basal ganglia infarct seen. These can contribute to gait instability. Also with cellulities with diabetes that may complicate patient's ambulation. Discussed with PCP. Physical therapy recommended, gait training and ambulation. Would benefit from using assistive device. Treatment for underlying cellulitis. Monitor glucose, maintain normal range. On ASA and Plavix for prior CVA, continue statin, goal LDL < 70. Fall precautions, DVT ppx.
--- NOTE | 2018-08-16 10:09 | PDOC ---
ED Treatment Course - LABORATORY CBC & Chemistry Diagram: 08/15/18 16:33 08/15/18 16:33 - ADDITIONAL ORDERS Additional order review: 08/15/18 16:33 RBC 4.92 MCV 79.8 L MCHC 30.0 L RDW 22.5 H MPV 8.6 D Neutrophils % 78.7 Lymphocytes % 6.2 L D Monocytes % 9.9 D Eosinophils % 4.6 H D Basophils % 0.6 - Medications Given in the ED: ED Medications Discontinued Medications Generic Name Dose Route Start Last Admin Trade Name Freq PRN Reason Stop Dose Admin Acetaminophen 1,000 mg 08/15/18 15:54 08/15/18 17:09 Ofirmev Injection - IVPB 08/15/18 15:55 1,000 mg ONCE ONE Administration Cefepime HCl 1 gm in 50 mls @ 100 mls/hr 08/15/18 19:30 08/15/18 20:00 Maxipime 1 Gm Premix Ivpb IVPB 08/15/18 19:59 100 mls/hr ONCE ONE Administration Protocol Vancomycin HCl 1,500 mg/ 500 mls @ 250 mls/2 hr 08/15/18 19:45 08/15/18 20:35 Dextrose IVPB 08/15/18 23:44 250 mls/2 hr ONCE ONE Administration Protocol Medical Decision Making - Medical Decision Making 08/16/18 10:[address] Valle to convert this patient to full admission. *DC/Admit/Observation/Transfer Diagnosis at time of Disposition: Cellulitis of leg, Fall - Discharge Dispostion Condition at time of disposition: Stable Decision to Admit order: Yes - Referrals - Patient Instructions - Post Discharge Activity
[2018-08-16] MEDS: CITALOPRAM HYDROBROMIDE 20 MG TABLET (FP) PO SCH (10:37)
[2018-08-16] MEDS: CLOPIDOGREL BISULFATE 75 MG TABLET (FP) PO SCH (10:37)
[2018-08-16] MEDS: TORSEMIDE 10 MG TABLET PO SCH (10:37)
[2018-08-16] MEDS: ASPIRIN 81 MG CHEWABLE TABLETS PO SCH (10:37)
[2018-08-16] MEDS: HEPARIN NA (PORCINE) 5,000 UNITS/ML 1ML VIAL SQ SCH ×2 (10:37→22:47)
[2018-08-16] MEDS: MULTIVITAMINS (DAILY MVI) TABLET (FP) PO SCH (10:38)
--- NOTE | 2018-08-16 10:46 | HP ---
Admitting History and Physical - Primary Care Physician PCP: Noemy Valle S - Admission Chief Complaint: falls, legs edema and rash and pain; L sided CP History of Present Illness: 68 year old past medical history of CVA, CAD, HTN, HLD, COPD (3L O2), CKD, DM, chronic bilateral leg cellulitis comes to the ED after unwitnessed fall at 0700 today. Patient on ASA and plavix. Denies loss of consciousness, head trauma, neck pain. The patient has had 3 falls for the past 1 week. The notes that 4 days ago she found the patient on the floor and does not know how long he had been down. 3 days ago the witnessed the patient walking without his walker and start to fall down while in the kitchen. She caught the patient before he fell to the ground. This AM the found the patient on the ground at 0700 and does not know how long he had been down. 1000 the patient began complaining of L sided chest pain that is worse with movement and with deep breathing. The patient denies chest pain, abdominal pain, N/V, diarrhea, constipation or urinary tract infection. He has no other complaints at bedside. 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 History of Recent Travel: No Home Medications - Allergies Allergies/Adverse Reactions: Allergies Allergy/AdvReac Type Severity Reaction Status Date / Time amoxicillin trihydrate Allergy Unknown Verified 07/10/18 13:29 [From Augmentin] potassium clavulanate Allergy Unknown Verified 07/10/18 13:29 [From Augmentin] - Home Medications Home Medications: Ambulatory Orders Aspirin [ASA -] 81 mg PO DAILY 08/15/18 Atorvastatin Ca [Lipitor] 20 mg PO HS 08/15/18 Citalopram Hydrobromide [Citalopram HBr] 40 mg PO DAILY 08/15/18 Clopidogrel Bisulfate [Clopidogrel] 75 mg PO DAILY 08/15/18 Insulin (Levemir) [Levemir Vial] 14 unit SQ BID 08/15/18 Torsemide [Demadex] 10 mg PO DAILY 08/15/18 Vit B12/Folic Acid/B6/Aa No.15 [Glycotrol Capsule] 1 each PO DAILY 08/15/18 Family Disease History - Family Disease History Family Disease History: Diabetes: Daughter Review of Systems - Review of Systems Constitutional: denies: Chills, Fever Eyes: denies: Blind Spots, Blurred Vision HENT: denies: Difficult Swallowing, Ear Pain, Epistaxis Neck: denies: Stiffness, Tenderness Cardiovascular: reports: Chest Pain (L ribs). denies: Edema, Palpitations, Shortness of Breath Respiratory: denies: Cough, SOB Gastrointestinal: denies: Abdominal Pain, Constipation, Diarrhea, Vomiting Genitourinary: denies: Dysuria, Flank Pain Musculoskeletal: reports: Back Pain, Extremity Pain (legs bilateral) Neurological: reports: Unsteady Gait, Weakness (general). denies: Change in LOC , Change in Speech, Confusion, Dizziness Endocrine: reports: Unexplained Weight Loss Hematology/Lymphatic: denies: Easily Bruised, Excessive Bleeding Psychiatric: denies: Anxiety, Depression, Suicidal Physical Examination Vital Signs: Vital Signs Temperature 97.4 F L 08/16/18 10:01 Pulse Rate 87 08/16/18 10:01 Respiratory Rate 18 08/15/18 22:49 Blood Pressure 123/52 L 08/16/18 10:01 O2 Sat by Pulse Oximetry (%) 98 08/15/18 22:49 Constitutional: Yes: No Distress, Calm Eyes: Yes: Conjunctiva Clear HENT: Yes: Atraumatic Neck: Yes: Supple Cardiovascular: Yes: Regular Rate and Rhythm Respiratory: Yes: CTA Bilaterally Gastrointestinal: Yes: Soft. No: Distention Renal/: No: CVA Tenderness - Left, CVA Tenderness - Right Musculoskeletal: No: Joint Stiffness, Joint Swelling Extremities: No: Cold, Cool Edema: Yes (legs bilat) Integumentary: Yes: Rash (legs bilat), Venous Stasis Changes (legs bilat) Neurological: Yes: WNL, Alert, Oriented, Unsteady Gait, Weakness (general) ...Motor Strength: WNL Psychiatric: Yes: WNL, Alert, Oriented. No: Agitated, Suicidal Ideation Labs: CBC, BMP 08/15/18 16:33 08/15/18 16:33 Imaging - Results Chest X-ray: Report Reviewed Other: Report Reviewed Assessment/Plan 68 year old past medical history of CVA, CAD, HTN, HLD, COPD (3L O2), CKD, DM, chronic bilateral leg cellulitis comes to the ED after multiple falls, L sided pleuritic CP and also bilateral legs cellulitis acute on chronic admit, neurology and cardiology eval head and CSpine CT CE also pulm eval for COPD bipap IDF eval for IV ATB legs cellulitis chest CT pending DVT falls decubs PFX d.w pt and staff
--- NOTE | 2018-08-16 11:50 | CON.CARD ---
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 Past week has fallen 3 times. Per pt there has been no loc or prodrome symptoms. He reports falling out of his chair and being too weak to stand on his own. Feels like his legs are too weak. No cp sob palps dizzy loc pnd orthopnea. Le edema improved lately. 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 History of Recent Travel: No Home Medications - Allergies Allergies/Adverse Reactions: Allergies Allergy/AdvReac Type Severity Reaction Status Date / Time amoxicillin trihydrate Allergy Unknown Verified 07/10/18 13:29 [From Augmentin] potassium clavulanate Allergy Unknown Verified 07/10/18 13:29 [From Augmentin] - Home Medications Home Medications Medication Instructions Recorded Aspirin [ASA -] 81 mg PO DAILY 08/15/18 Atorvastatin Ca [Lipitor] 20 mg PO HS 08/15/18 Citalopram Hydrobromide 40 mg PO DAILY 08/15/18 [Citalopram HBr] Clopidogrel Bisulfate [Clopidogrel] 75 mg PO DAILY 08/15/18 Insulin (Levemir) [Levemir Vial] 14 unit SQ BID 08/15/18 Torsemide [Demadex] 10 mg PO DAILY 08/15/18 Vit B12/Folic Acid/B6/Aa No.15 1 each PO DAILY 08/15/18 [Glycotrol Capsule] Family Disease History - Family Disease History Family History: Unremarkable Family Disease History: Diabetes: Daughter Review of Systems per hpi; no nvd, fever gib hematuria dysuria muscle pains vision changes cough pe: Vital Signs Period Temp Pulse Resp BP Sys/Mullen Pulse Ox Last 24 Hr 97.4 F-98.6 F 68-87 18-20 123-145/52-75 96-98 Constitutional: Yes: No Distress, Calm Eyes: Yes: Conjunctiva Clear, HENT: Yes: Atraumatic, Normocephalic Neck: Yes: Supple, Trachea Midline Respiratory: Yes: cta bl nl eff Gastrointestinal: Yes: Normal Bowel Sounds, Soft Cardiovascular: Yes: Regular Rate and Rhythm JVD: No Carotid Bruit: No Heart Sounds: Yes: S1, S2 Extremities: Yes: Erythema, Other (erythema bilateral feet and ankles with weeping from wounds) Edema: trace/1+ le edema bl Peripheral Pulses: 1+ Left Doralis Pedis, 1+ Right Dorsalis Pedis Integumentary: no jaundice diaphoresis aaox3 - Other Data Labs, Other Data: Laboratory Last Values WBC 6.1 K/mm3 (4.0-10.0) 08/15/18 16:33 RBC 4.92 M/mm3 (4.00-5.60) 08/15/18 16:33 Hgb 11.8 GM/dL (11.7-16.9) 08/15/18 16:33 Hct 39.3 % (35.4-49) 08/15/18 16:33 MCV 79.8 fl (80-96) L 08/15/18 16:33 MCH 23.9 pg (25.7-33.7) L 08/15/18 16:33 MCHC 30.0 g/dl (32.0-35.9) L 08/15/18 16:33 RDW 22.5 % (11.9-15.9) H 08/15/18 16:33 Plt Count 196 K/MM3 (134-434) 08/15/18 16:33 MPV 8.6 fl (7.5-11.1) D 08/15/18 16:33 Absolute Neuts (auto) 4.8 K/mm3 (1.5-8.0) 08/15/18 16:33 Neutrophils % 78.7 % (42.8-82.8) 08/15/18 16:33 Lymphocytes % 6.2 % (8-40) L D 08/15/18 16:33 Monocytes % 9.9 % (3.8-10.2) D 08/15/18 16:33 Eosinophils % 4.6 % (0-4.5) H D 08/15/18 16:33 Basophils % 0.6 % (0-2.0) 08/15/18 16:33 Nucleated RBC % 0 % (0-0) 08/15/18 16:33 Anisocytosis 1+ 08/15/18 16:33 PT with INR 13.00 SEC (9.7-13.0) 08/15/18 16:33 INR 1.10 (0.83-1.09) H 08/15/18 16:33 PTT (Actin FS) 36.2 SECONDS (25.2-36.5) 08/15/18 16:33 Sodium 145 mmol/L (136-145) 08/15/18 16:33 Potassium 5.2 mmol/L (3.5-5.1) H 08/15/18 16:33 Chloride 107 mmol/L (98-107) 08/15/18 16:33 Carbon Dioxide 37 mmol/L (21-32) H 08/15/18 16:33 Anion Gap 1 MMOL/L (8-16) L 08/15/18 16:33 BUN 39 mg/dL (7-18) H 08/15/18 16:33 Creatinine 1.4 mg/dL (0.55-1.3) H 08/15/18 16:33 Creat Clearance w eGFR 50.55 (>60) 08/15/18 16:33 POC Glucometer 91.16877 UNITS (80-120) 08/16/18 08:49 Random Glucose 89 mg/dL (74-106) 08/15/18 16:33 Calcium 8.4 mg/dL (8.5-10.1) L 08/15/18 16:33 Total Bilirubin 0.5 mg/dL (0.2-1) 08/15/18 16:33 AST 14 U/L (15-37) L 08/15/18 16:33 ALT 18 U/L (13-61) 08/15/18 16:33 Alkaline Phosphatase 76 U/L (45-117) 08/15/18 16:33 Creatine Kinase 74 IU/L (26-308) 08/15/18 17:36 Troponin I < 0.02 ng/ml (0.00-0.05) 08/15/18 17:36 B-Natriuretic Peptide 3358.7 pg/ml (5-125) H 08/15/18 16:33 Total Protein 6.5 g/dl (6.4-8.2) 08/15/18 16:33 Albumin 3.1 g/dl (3.4-5.0) L 08/15/18 16:33 echo 12/2016: nl lv/rv, mild lae, mild mr, mild-mod tr, possible mild as, mild phtn exercise mibi 01/02: no ischemia at 80% mphr ct chest: no chf EKG: sinus, LBBB, mobitz 1 (similar to prior EKGs) a/p: 68M h/o CVA, HTN, HLD, COPD (on 3L O2), CKD, DM, TIA, chronic diastolic hf /venous insufficiency, 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 falls: -mechanical in nature, no signs of cardiac etiology -can monitor tele, check ortho vs -PT eval Abnormal EKG, mobitz 1, LBBB: - chronic findings, has had prior event monitors in clinic showing mobitz 1 without significant pauses - avoid AV arsh blocking agents - trop neg, no signs acs COPD - seems stable presently chronic venous insuff/LE edema, recurrent cellulitis: - vasc surgery, Dr. Cordon/wound team consulted PAD: -prior h/o left fem-pop bypass, cont dapt, statin chronic diastolic CHF -echoes have been unremarkable or very TDS in past, most recent 12/2016 was unremarkable -cont home torsemide 10 qd htn: -stable, controlled hld: -cont statin h/o TIA (2003): -on ASA, statin for sec prevention, cont same
--- NOTE | 2018-08-16 14:00 | CONSULT ---
Consultation: REQUESTING PROVIDER: Dr Valle CONSULT REQUEST: We have been asked to medically evaluate this patient for pulmonology Evaluation for chronic COPD. HISTORY OF PRESENT ILLNESS: 68 yo Male with PMH of CVA, CAD, HTN, HLD, COPD on 3L home O2, CKD, IDDM, chronic b/l LE wounds admitted following multiple falls in one week in addition to worsening LE cellulitis. He states that he fell out of his wheelchair at home. He denies any LOC. He states that he has a cough with minimal sputum production which is clear which is chronic for him. Of note he does endorse some Left sided rib/chest pain which is worse when coughing. He denies any fevers, chills, n/v/d, abdominal pain. REVIEW OF SYSTEMS: CONSTITUTIONAL: Absent: fever, chills, diaphoresis, generalized weakness, malaise, loss of appetite, weight change HEENT: Absent: rhinorrhea, nasal congestion, throat pain, throat swelling, difficulty swallowing, mouth swelling, ear pain, eye pain, visual changes CARDIOVASCULAR: Absent: chest pain, syncope, palpitations, irregular heart rate, lightheadedness , peripheral edema RESPIRATORY: cough, shortness of breath, dyspnea with exertion Absent: , orthopnea, wheezing, stridor, hemoptysis GASTROINTESTINAL: Absent: abdominal pain, abdominal distension, nausea, vomiting, diarrhea, constipation, melena, hematochezia GENITOURINARY: Absent: dysuria, frequency, urgency, hesitancy, hematuria, flank pain, genital pain MUSCULOSKELETAL: Absent: myalgia, arthralgia, joint swelling, back pain, neck pain SKIN: chronic LE wounds Absent: rash, itching, pallor HEMATOLOGIC/IMMUNOLOGIC: Absent: easy bleeding, easy bruising, lymphadenopathy, frequent infections ENDOCRINE: Absent: unexplained weight gain, unexplained weight loss, heat intolerance, cold intolerance NEUROLOGIC: Absent: headache, focal weakness or paresthesias, dizziness, unsteady gait, seizure, mental status changes, bladder or bowel incontinence PSYCHIATRIC: Absent: anxiety, depression, suicidal or homicidal ideation, hallucinations. PHYSICAL EXAMINATION Vital Signs - 24 hr 08/15/18 08/15/18 08/16/18 14:44 22:49 10:01 Temperature 98.6 F 98 F 97.4 F L Pulse Rate 86 87 Pulse Rate [ 68 Right Radial] Respiratory 20 18 Rate Blood Pressure 145/65 123/52 L Blood Pressure 141/75 [Left Arm] O2 Sat by Pulse 96 98 Oximetry (%) GENERAL: A&O, no acute distress HEAD: Normocephalic, atraumatic. EYES: PERRL, no scleral icterus EARS, NOSE, THROAT: oropharynx clear without exudates. Moist mucous membranes. LUNGS: Decreased air entry, mild wheezes diffusely, reproducible pain on left inferior axillary region HEART: Regular rate and rhythm, normal S1 and S2 without murmur ABDOMEN: Soft, nontender to palpation, normoactive bowel sounds EXTREMITIES: B/l LE erythema and 2+ pitting edema, Dressings in tact, left dressing clean and dry, right side with serous drainage through dressing NEUROLOGICAL: Cranial nerves II-XII grossly intact. Normal speech. SKIN: small ecchymoses noted diffusely on extremities Laboratory Results - last 24 hr 08/15/18 08/15/18 08/15/18 16:33 16:33 16:33 WBC 6.1 RBC 4.92 Hgb 11.8 Hct 39.3 MCV 79.8 L MCH 23.9 L MCHC 30.0 L RDW 22.5 H Plt Count 196 MPV 8.6 D Absolute Neuts (auto) 4.8 Neutrophils % 78.7 Lymphocytes % 6.2 L D Monocytes % 9.9 D Eosinophils % 4.6 H D Basophils % 0.6 Nucleated RBC % 0 Anisocytosis 1+ PT with INR 13.00 INR 1.10 H PTT (Actin FS) 36.2 Sodium 145 Potassium 5.2 H Chloride 107 Carbon Dioxide 37 H Anion Gap 1 L BUN 39 H Creatinine 1.4 H Creat Clearance w eGFR 50.55 POC Glucometer Random Glucose 89 Calcium 8.4 L Total Bilirubin 0.5 AST 14 L ALT 18 Alkaline Phosphatase 76 Creatine Kinase Troponin I B-Natriuretic Peptide Total Protein 6.5 Albumin 3.1 L 08/15/18 08/15/18 08/15/18 16:33 16:33 17:36 WBC RBC Hgb Hct MCV MCH MCHC RDW Plt Count MPV Absolute Neuts (auto) Neutrophils % Lymphocytes % Monocytes % Eosinophils % Basophils % Nucleated RBC % Anisocytosis PT with INR INR PTT (Actin FS) Sodium Potassium Chloride Carbon Dioxide Anion Gap BUN Creatinine Creat Clearance w eGFR POC Glucometer Random Glucose Calcium Total Bilirubin AST ALT Alkaline Phosphatase Creatine Kinase 74 Troponin I < 0.02 < 0.02 B-Natriuretic Peptide Cancelled 3358.7 H Total Protein Albumin 08/16/18 08/16/18 08:49 12:47 WBC RBC Hgb Hct MCV MCH MCHC RDW Plt Count MPV Absolute Neuts (auto) Neutrophils % Lymphocytes % Monocytes % Eosinophils % Basophils % Nucleated RBC % Anisocytosis PT with INR INR PTT (Actin FS) Sodium Potassium Chloride Carbon Dioxide Anion Gap BUN Creatinine Creat Clearance w eGFR POC Glucometer 91.24157 143.34597 Random Glucose Calcium Total Bilirubin AST ALT Alkaline Phosphatase Creatine Kinase Troponin I B-Natriuretic Peptide Total Protein Albumin Active Medications Generic Name Dose Route Start Last Admin Trade Name Freq PRN Reason Stop Dose Admin Aspirin 81 mg 08/16/18 10:00 08/16/18 10:37 Asa - PO 81 mg DAILY [facility]JESH Administration Atorvastatin Calcium 20 mg 08/16/18 22:00 Lipitor - PO HS [facility]JESH Citalopram Hydrobromide 40 mg 08/16/18 10:00 08/16/18 10:37 Celexa - PO 40 mg DAILY [facility] Administration Clopidogrel Bisulfate 75 mg 08/16/18 10:00 08/16/18 10:37 Plavix - PO 75 mg DAILY [facility] Administration Heparin Sodium (Porcine) 5,000 unit 08/16/18 10:00 08/16/18 10:37 Heparin - SQ 5,000 unit BID [facility]JESH Administration Insulin Aspart 1 vial 08/16/18 07:00 08/16/18 12:48 Novolog Vial Sliding Scale - SQ Not Given ACHS [facility] Protocol Insulin Detemir 14 units 08/16/18 07:00 08/16/18 08:41 Levemir Vial SQ 14 units 0700,2200 RAEJSH Administration Multivitamins/Minerals/Vitamin C 1 tab 08/16/18 10:00 08/16/18 10:38 Tab-A-Vit - PO 1 tab DAILY [facility] Administration Torsemide 10 mg 08/16/18 10:00 08/16/18 10:37 Demadex - PO 10 mg DAILY [facility] Administration ASSESSMENT/PLAN: 68 yo Male with PMH of CVA, CAD, HTN, HLD, COPD on 3L home O2, CKD, IDDM, chronic b/l LE wounds admitted following multiple falls in one week in addition to worsening LE cellulitis. COPD on Home O2 -Not in acute exacerbation -Symbicort -Spiriva -Albuterol NEBs PRN LE Cellulitis -Pt seen by woundcare -Continue IV Abx -wound care as per primary CAD -continue ASA and Plavix HLD -Lipitor 20 mg PO HS CKD -Likely secondary to chronic HTN and Diabetes IDDM -Levemir 14 units SQ BID -ISS for further glycemic control as needed -BGMs DVT Prophylaxis -Heparin 5000 units SQ BID FEN -Fluids: none -Electrolytes: Monitor and replete as needed -Nutrition: Diabetic Diet Dispo: We will continue to follow the patient. Thank you for this consultative opportunity. Visit type - Emergency Visit Emergency Visit: Yes ED Registration Date: 08/16/18 Care time: The patient presented to the Emergency Department on the above date and was hospitalized for further evaluation of their emergent condition. - New Patient This patient is new to me today: Yes Date on this admission: 08/16/18 - Critical Care Critical Care patient: No
--- NOTE | 2018-08-16 14:36 | PN ---
Teaching Attending Note Name of Resident: Luis Camacho ATTENDING PHYSICIAN STATEMENT I saw and evaluated the patient. I reviewed the resident's note and discussed the case with the resident. I agree with the resident's findings and plan as documented. SUBJECTIVE: Pt seen and examined in the ER. Briefly, 68yo male with h/o HTN, DM, hyperlipidemia, CAD, COPD, chronic hypoxic respiratory failure on home O2, CKD who was admitted with increasing falls and leg swelling. No fevers, chills or sweats. States his breathing is at his baseline. +chronic nonproductive cough but no wheezing. Compliant with his oxygen and inhalers. Still smoking about 10 cigarettes/day. OBJECTIVE: Vital Signs Period Temp Pulse Resp BP Sys/Mullen Pulse Ox Last 24 Hr 97.4 F-98.6 F 68-87 18-20 123-145/52-75 96-98 Gen: NAD at rest Heart: RRR Lung: distant breath sounds, no wheezes Abd: soft, nontender Ext: + LE edema, erythema CBC, BMP 08/15/18 16:33 08/15/18 16:33 Active Medications Aspirin (Asa -) 81 mg PO DAILY [facility] Last Admin: 08/16/18 10:37 Dose: 81 mg Atorvastatin Calcium (Lipitor -) 20 mg PO [facility] Citalopram Hydrobromide (Celexa -) 40 mg PO DAILY [facility] Last Admin: 08/16/18 10:37 Dose: 40 mg Clopidogrel Bisulfate (Plavix -) 75 mg PO DAILY [facility] Last Admin: 08/16/18 10:37 Dose: 75 mg Heparin Sodium (Porcine) (Heparin -) 5,000 unit SQ BID [facility] Last Admin: 08/16/18 10:37 Dose: 5,000 unit Insulin Aspart (Novolog Vial Sliding Scale -) 1 vial SQ ACHS [facility]; Protocol Last Admin: 08/16/18 12:48 Dose: Not Given Insulin Detemir (Levemir Vial) 14 units SQ 0700,2200 [facility] Last Admin: 08/16/18 08:41 Dose: 14 units Multivitamins/Minerals/Vitamin C (Tab-A-Vit -) 1 tab PO DAILY [facility] Last Admin: 08/16/18 10:38 Dose: 1 tab Torsemide (Demadex -) 10 mg PO DAILY [facility] Last Admin: 08/16/18 10:37 Dose: 10 mg ASSESSMENT AND PLAN: Cellulitis COPD Chronic Hypoxic Respiratory Failure CAD HTN DM Hyperlipidemia CKD h/o CVA Smoker - continue inhaled bronchodilators as needed - Symbicort, Spiriva daily - O2 to keep Spo2>90% - can defer systemic steroids at this time - antibiotics for cellulitis - wound care - DVT prophylaxis Thank you for this consult Darek Arceo MD
[2018-08-16] MEDS: ALBUTEROL SO4 0.042% IH SOL 1.25 MG/3 ML VIAL.NEB NEB PRN ×2 (16:20→23:17)
[2018-08-16 16:58] LABS: URINE APPEARANCE CLEAR; URINE BILIRUBIN NEGATIVE (<2.0 mg/dL); URINE COLOR YELLOW; URINE GLUCOSE (UA) NEGATIVE (NEGATIVE); URINE KETONE NEGATIVE (NEGATIVE); URINE LEUK ESTERASE NEGATIVE (NEGATIVE); URINE NITRITE NEGATIVE (NEGATIVE); URINE PROTEIN NEGATIVE (NEGATIVE); URINE UROBILINOGEN NEGATIVE mg/dL (0.2-1.0)
[2018-08-16] MEDS ORDERED: VANCOMYCIN 1,000 MG in DEXTROSE 5%-WATER - 250 ML IVPB SCH (17:15)
--- NOTE | 2018-08-16 17:23 | PN ---
Progress Note (short form) - Note Progress Note: ID Recurrent LE cellulitis Hx MRSA/ Pseudomonas Amoxicillin allergy Pending c/s Vancomycin/ cefepime Local wound care
[2018-08-16 17:42] VITALS: BMI 31.3
[2018-08-16] MEDS ORDERED: CEFEPIME HCL 1 GM VIAL (RESTRICTED TO ID) ONE (18:15)
[2018-08-16] MEDS ORDERED: DEXTROSE 5%-WATER 100 ML IVPB ONE (18:16)
[2018-08-16] MEDS ORDERED: INSULIN (NOVOLOG) ASPART 100 UNITS/ML 10ML VIAL ONE (18:17)
[2018-08-16] MEDS: CEFEPIME 1 GM in DEXTROSE 5%-WATER 100 ML IVPB SCH (18:27)
--- NOTE | 2018-08-16 18:41 | CONS ---
INFECTIOUS DISEASE CONSULTATION DATE OF CONSULTATION: 08/16/2018 The patient is a 68-year-old male with multiple hospital admissions in the recent past, history of recurrent lower extremity cellulitis and now evaluated for recurrent cellulitis. He reports being followed in the wound care center. He was admitted to the hospital on August 15, 2018, after being found on the floor at home after a fall. He was evaluated in the emergency room where he was found to have recurrent bilateral lower extremity cellulitis. He was empirically treated with vancomycin and cefepime. He does not give a reliable history. He was found to have severe bilateral lower extremity cellulitis with desquamation and copious amounts of serous drainage of the right greater than left lower extremity. He also has a history of positive wound cultures for MRSA and pseudomonas. He also has a history of AMOXICILLIN allergy. He has tolerated cephalosporins in the past. PAST MEDICAL HISTORY: Positive for a stroke, coronary artery disease, peripheral vascular disease, hypertension, hyperlipidemia, COPD, chronic kidney disease, diabetes mellitus. PAST SURGICAL HISTORY: Status post left femoropopliteal bypass. ALLERGIES: AMOXICILLIN. MEDICATIONS: Aspirin, Lipitor, Plavix, Demadex. LABORATORY DATA: White count 6.1, hematocrit 39.3, platelet count 196. BUN 39, creatinine 1.4. Urine leukocyte esterase negative. Chest x-ray negative. PHYSICAL EXAMINATION: General: He is chronically ill appearing. Vital Signs: Temperature 97.5; blood pressure 136/74; pulse 84, regular; respirations 18 per minute. HEENT: Sclerae are anicteric. Heart: Sounds S1, S2. Lungs: Scattered rhonchi. Abdomen: Obese, soft, nontender. Lower Extremities: Right lower extremity with extensive areas of erythema and maceration with malodorous serous drainage from below the knee to the foot. There is some lymphangitic streaking present. Left lower extremity with extensive erythema and some maceration and serous weepage, although to a lesser degree than the right lower extremity. IMPRESSION: 1. Recurrent bilateral lower extremity cellulitis. 2. Possible sepsis secondary to skin source. 3. History of methicillin-resistant Staphylococcus aureus and pseudomonas. 4. AMOXICILLIN allergy. Await cultures, empiric antibiotic coverage in this patient with PENICILLIN allergy with vancomycin and cefepime. Local wound care. Wound care evaluation. Thank you for the kind referral. DEBBIE CARMONA M.D. [id number]
[2018-08-16] MEDS: TIOTROPIUM BROMIDE 2.5 MCG (SPIRIVA) RESPIMAT INHALER IH SCH (20:08)
[2018-08-16] MEDS: VANCOMYCIN 1 GRAM (PRE-DOCKED) 1,000 MG/250 ML BAG IVPB SCH (20:09)
[2018-08-16] MEDS: BUDESONIDE/FORMETEROL FUMARATE 160/4.5 mcg INHALER IH SCH (22:46)
[2018-08-16] MEDS: ATORVASTATIN CA 20 MG TABLET (FP) PO SCH (22:47)
[2018-08-16] MEDS: MINERAL OIL/PET HY-PHL TOPICAL OINTMENT 454 GM JAR TP SCH (22:48)
[2018-08-17] MEDS: oxyCODONE HCL 5 MG TABLET PO PRN ×2 (01:20→10:06)
[2018-08-17] MEDS ORDERED: DEXTROSE 5%-WATER 100 ML IVPB ONE ×2 (05:07→17:51)
[2018-08-17] MEDS ORDERED: CEFEPIME HCL 1 GM VIAL (RESTRICTED TO ID) ONE ×2 (05:07→17:51)
[2018-08-17] MEDS: CEFEPIME 1 GM in DEXTROSE 5%-WATER 100 ML IVPB SCH ×2 (05:09→17:56)
[2018-08-17] MEDS: ACETAMINOPHEN 325 MG TABLET (FP) PO PRN (05:09)
[2018-08-17] MEDS: ALBUTEROL SO4 0.042% IH SOL 1.25 MG/3 ML VIAL.NEB NEB PRN ×2 (05:42→08:49)
[2018-08-17] MEDS: INSULIN SLIDING SCALE (NOVOLOG) 1 VIAL SQ SCH ×4 (06:07→22:09)
[2018-08-17] MEDS: INSULIN (LEVEMIR) 100 UNITS/ML UNITS SQ SCH ×2 (06:48→22:08)
[2018-08-17 08:23] LABS: EOS % 6.5 % (0-4.5); HEMATOCRIT 32.7 % (35.4-49); LYMPH % 9.8 % (8-40); MCH 23.9 pg (25.7-33.7); MCHC 30.5 g/dl (32.0-35.9); MEAN CELL VOLUME 78.3 fl (80-96); MEAN PLT VOLUME 7.9 fl (7.5-11.1); MONO % 9.6 % (3.8-10.2); NEUT % 73.1 % (42.8-82.8); PLATELET COUNT 176 K/MM3 (134-434); RBC 4.18 M/mm3 (4.00-5.60); RDW 22.5 % (11.9-15.9); WHITE BLOOD COUNT 4.6 K/mm3 (4.0-10.0)
[2018-08-17 08:29] LABS: ALBUMIN 2.4 g/dl (3.4-5.0); ALK PHOS 59 U/L (45-117); ANION GAP 3 MMOL/L (8-16); BILIRUBIN,TOTAL 0.5 mg/dL (0.2-1); BLOOD UREA NITROGEN 30 mg/dL (7-18); CALCIUM 7.8 mg/dL (8.5-10.1); CHLORIDE 102 mmol/L (98-107); CO2 35 mmol/L (21-32); CREATININE 1.2 mg/dL (0.55-1.3); GLUCOSE,RANDOM 64 mg/dL (74-106); POTASSIUM 5.3 mmol/L (3.5-5.1); SGOT/AST 15 U/L (15-37); SGPT/ALT 14 U/L (13-61); SODIUM 140 mmol/L (136-145); TOT PROT 5.5 g/dl (6.4-8.2)
--- NOTE | 2018-08-17 08:47 | PN ---
Progress Note (short form) - Note Progress Note: Neurology History of Present Illness 68 year old past medical history of CVA, CAD, HTN, HLD, COPD (3L O2), CKD, DM, chronic bilateral leg cellulitis comes to the ED after unwitnessed fall on day of admission. Patient on ASA and plavix. Denied loss of consciousness, head trauma, neck pain. The patient has had 3 falls reportedly in the past 1 week. 3 days prior the reportedly witnessed the patient walking without his walker and start to fall down while in the kitchen. She caught the patient before he fell to the ground. He was brought to the ER and CT head reviewed and discussed and though no acute changes, chronic R cerebellar and L basal ganglia infarct seen. These can contribute to gait instability. Also with cellulities and diabetes that may complicate patient's ambulation. CT L spine reviewed, stable compression fx of L1 noted, no interval change. No spinal stenosis or neural foraminal narrowing noted. Patient denies back pain but c/o L rib pain. Allergies/Adverse Reactions: Allergies Allergy/AdvReac Type Severity Reaction Status Date / Time amoxicillin trihydrate Allergy Unknown Verified 07/10/18 13:29 [From Augmentin] potassium clavulanate Allergy Unknown Verified 07/10/18 13:29 [From Augmentin] Active Medications Acetaminophen (Tylenol -) 650 mg PO Q6H PRN PRN Reason: PAIN LEVEL 1-5 Last Admin: 08/17/18 05:09 Dose: 650 mg Albuterol Sulfate (Ventolin 0.042trength) -) 1 amp NEB Q4H PRN PRN Reason: SHORT OF BREATH/WHEEZING Last Admin: 08/17/18 08:49 Dose: 1 amp Aspirin (Asa -) 81 mg PO DAILY [facility] Last Admin: 08/16/18 10:37 Dose: 81 mg Atorvastatin Calcium (Lipitor -) 20 mg PO HS [facility] Last Admin: 08/16/18 22:47 Dose: 20 mg Budesonide/Formoterol Fumarate (Symbicort 160/4.5mcg -) 2 puff IH BID [facility] Last Admin: 08/16/18 22:46 Dose: 2 puff Citalopram Hydrobromide (Celexa -) 40 mg PO DAILY [facility] Last Admin: 08/16/18 10:37 Dose: 40 mg Clopidogrel Bisulfate (Plavix -) 75 mg PO DAILY [facility] Last Admin: 08/16/18 10:37 Dose: 75 mg Emollient Ointment (Aquaphor -) 1 applic TP BID [facility] Last Admin: 08/16/18 22:48 Dose: Not Given Heparin Sodium (Porcine) (Heparin -) 5,000 unit SQ BID [facility] Last Admin: 08/16/18 22:47 Dose: 5,000 unit Cefepime HCl 1 gm/ Dextrose 100 mls @ 200 mls/hr IVPB Q12H [facility]; Protocol Last Admin: 08/17/18 05:09 Dose: 200 mls/hr Vancomycin HCl (Vancomycin (Pre-Docked)) 1,000 mg in 250 mls @ 200 mls/hr IVPB Q24H [facility]; Protocol Last Admin: 08/16/18 20:09 Dose: 200 mls/hr Insulin Aspart (Novolog Vial Sliding Scale -) 1 vial SQ ACHS [facility]; Protocol Last Admin: 08/17/18 06:07 Dose: Not Given Insulin Detemir (Levemir Vial) 14 units SQ 0700,2200 [facility] Last Admin: 08/17/18 06:48 Dose: 14 units Multivitamins/Minerals/Vitamin C (Tab-A-Vit -) 1 tab PO DAILY [facility] Last Admin: 08/16/18 10:38 Dose: 1 tab Oxycodone HCl (Roxicodone -) 5 mg PO Q6H PRN PRN Reason: PAIN LEVEL 6-10 Last Admin: 08/17/18 01:20 Dose: 5 mg Tiotropium [place] (Spiriva Respimat) 2 puff IH DAILY [facility] Last Admin: 08/16/18 20:08 Dose: Not Given Torsemide (Demadex -) 10 mg PO DAILY [facility] Last Admin: 08/16/18 10:37 Dose: 10 mg *Physical Exam Vital Signs Period Temp Pulse Resp BP Sys/Mullen Pulse Ox Last 24 Hr 97.4 F-98.8 F 68-87 18-22 123-136/52-74 95-98 Gen: Awake, alert, responds to questions Card: RRR, nml S1,S2 Resp: decreased breath sounds Abdomen: Soft, nontender, bowel sounds active Head atraumatic and normocephalic CN: PERRL, EOMI intact, no apparent facial droop, no abnormalities in facial sensation, palate elevates, uvula and tongue midline Motor: Full strength to confrontation in upper and lower extermities proximally and distally. Tone normal throughout Sensory: Decreased pinprick in distal lower extremities Reflexes: 1+ biceps, brachioradialis, patellar, achillies Coordination: Intact on [id number] testing Gait: Deferred CBCD WBC 4.6 K/mm3 (4.0-10.0) 08/17/18 06:50 RBC 4.18 M/mm3 (4.00-5.60) 08/17/18 06:50 Hgb 10.0 GM/dL (11.7-16.9) L 08/17/18 06:50 Hct 32.7 % (35.4-49) L D 08/17/18 06:50 MCV 78.3 fl (80-96) L 08/17/18 06:50 MCHC 30.5 g/dl (32.0-35.9) L 08/17/18 06:50 RDW 22.5 % (11.9-15.9) H 08/17/18 06:50 Plt Count 176 K/MM3 (134-434) 08/17/18 06:50 MPV 7.9 fl (7.5-11.1) 08/17/18 06:50 CMP Sodium 140 mmol/L (136-145) 08/17/18 06:50 Potassium 5.3 mmol/L (3.5-5.1) H 08/17/18 06:50 Chloride 102 mmol/L (98-107) 08/17/18 06:50 Carbon Dioxide 35 mmol/L (21-32) H 08/17/18 06:50 Anion Gap 3 MMOL/L (8-16) L 08/17/18 06:50 BUN 30 mg/dL (7-18) H 08/17/18 06:50 Creatinine 1.2 mg/dL (0.55-1.3) 08/17/18 06:50 Creat Clearance w eGFR > 60 (>60) 08/17/18 06:50 Random Glucose 64 mg/dL (74-106) L 08/17/18 06:50 Calcium 7.8 mg/dL (8.5-10.1) L 08/17/18 06:50 Total Bilirubin 0.5 mg/dL (0.2-1) 08/17/18 06:50 AST 15 U/L (15-37) 08/17/18 06:50 ALT 14 U/L (13-61) 08/17/18 06:50 Alkaline Phosphatase 59 U/L (45-117) 08/17/18 06:50 Total Protein 5.5 g/dl (6.4-8.2) L 08/17/18 06:50 Albumin 2.4 g/dl (3.4-5.0) L 08/17/18 06:50 CARDIAC ENZYMES Creatine Kinase 74 IU/L (26-308) 08/15/18 17:36 Troponin I < 0.02 ng/ml (0.00-0.05) 08/15/18 17:36 Medical Decision Making 68 year old past medical history of CVA, CAD, HTN, HLD, COPD (3L O2), CKD, DM, chronic bilateral leg cellulitis comes to the ED after unwitnessed fall on day of admission. Patient on ASA and plavix. Denied loss of consciousness, head trauma, neck pain. The patient has had 3 falls reportedly in the past 1 week. 3 days prior the reportedly witnessed the patient walking without his walker and start to fall down while in the kitchen. She caught the patient before he fell to the ground. He was brought to the ER and CT head reviewed and discussed and though no acute changes, chronic R cerebellar and L basal ganglia infarct seen. These can contribute to gait instability. Also with cellulities with diabetes that may complicate patient's ambulation. CT L spine reviewed, no acute changes, stable L1 compression fracture, unchanged from prior. Physical therapy recommended, gait training and ambulation. Would benefit from using assistive device. Treatment for underlying cellulitis. Monitor glucose, maintain normal range. On ASA and Plavix for prior CVA, continue statin, goal LDL < 70. Fall precautions, DVT ppx.
[2018-08-17] MEDS ORDERED: PT OWN MED DRAWER 7, Y5N ONE (09:59)
[2018-08-17] MEDS: MULTIVITAMINS (DAILY MVI) TABLET (FP) PO SCH (10:05)
[2018-08-17] MEDS: ASPIRIN 81 MG CHEWABLE TABLETS PO SCH (10:05)
[2018-08-17] MEDS: CITALOPRAM HYDROBROMIDE 20 MG TABLET (FP) PO SCH (10:05)
[2018-08-17] MEDS: MINERAL OIL/PET HY-PHL TOPICAL OINTMENT 454 GM JAR TP SCH ×2 (10:05→22:09)
[2018-08-17] MEDS: CLOPIDOGREL BISULFATE 75 MG TABLET (FP) PO SCH (10:05)
[2018-08-17] MEDS: TORSEMIDE 10 MG TABLET PO SCH (10:06)
[2018-08-17] MEDS: BUDESONIDE/FORMETEROL FUMARATE 160/4.5 mcg INHALER IH SCH ×2 (10:07→22:08)
[2018-08-17] MEDS: TIOTROPIUM BROMIDE 2.5 MCG (SPIRIVA) RESPIMAT INHALER IH SCH (10:08)
[2018-08-17] MEDS: HEPARIN NA (PORCINE) 5,000 UNITS/ML 1ML VIAL SQ SCH ×2 (10:08→22:08)
--- NOTE | 2018-08-17 11:07 | PN ---
Progress Note, Physician History of Present Illness: Pt w/o SOB, CP, palpitations, abd pain. Pt c/o L side rib pain, worser with inpiration - Current Medication List Current Medications: Active Medications Acetaminophen (Tylenol -) 650 mg PO Q6H PRN PRN Reason: PAIN LEVEL 1-5 Last Admin: 08/17/18 05:09 Dose: 650 mg Albuterol Sulfate (Ventolin 0.042trength) -) 1 amp NEB Q4H PRN PRN Reason: SHORT OF BREATH/WHEEZING Last Admin: 08/17/18 08:49 Dose: 1 amp Aspirin (Asa -) 81 mg PO DAILY [facility] Last Admin: 08/17/18 10:05 Dose: 81 mg Atorvastatin Calcium (Lipitor -) 20 mg PO HS [facility] Last Admin: 08/16/18 22:47 Dose: 20 mg Budesonide/Formoterol Fumarate (Symbicort 160/4.5mcg -) 2 puff IH BID [facility] Last Admin: 08/17/18 10:07 Dose: 2 puff Citalopram Hydrobromide (Celexa -) 40 mg PO DAILY [facility] Last Admin: 08/17/18 10:05 Dose: 40 mg Clopidogrel Bisulfate (Plavix -) 75 mg PO DAILY [facility] Last Admin: 08/17/18 10:05 Dose: 75 mg Emollient Ointment (Aquaphor -) 1 applic TP BID [facility] Last Admin: 08/17/18 10:05 Dose: 1 applic Heparin Sodium (Porcine) (Heparin -) 5,000 unit SQ BID [facility] Last Admin: 08/17/18 10:08 Dose: 5,000 unit Cefepime HCl 1 gm/ Dextrose 100 mls @ 200 mls/hr IVPB Q12H [facility]; Protocol Last Admin: 08/17/18 05:09 Dose: 200 mls/hr Vancomycin HCl (Vancomycin (Pre-Docked)) 1,000 mg in 250 mls @ 200 mls/hr IVPB Q24H [facility]; Protocol Last Admin: 08/16/18 20:09 Dose: 200 mls/hr Insulin Aspart (Novolog Vial Sliding Scale -) 1 vial SQ ACHS [facility]; Protocol Last Admin: 08/17/18 06:07 Dose: Not Given Insulin Detemir (Levemir Vial) 14 units SQ 0700,2200 [facility] Last Admin: 08/17/18 06:48 Dose: 14 units Multivitamins/Minerals/Vitamin C (Tab-A-Vit -) 1 tab PO DAILY [facility] Last Admin: 08/17/18 10:05 Dose: 1 tab Oxycodone HCl (Roxicodone -) 5 mg PO Q6H PRN PRN Reason: PAIN LEVEL 6-10 Last Admin: 08/17/18 10:06 Dose: 5 mg Tiotropium [place] (Spiriva Respimat) 2 puff IH DAILY [facility] Last Admin: 08/17/18 10:08 Dose: 2 puff Torsemide (Demadex -) 10 mg PO DAILY [facility] Last Admin: 08/17/18 10:06 Dose: 10 mg - Objective Vital Signs: Vital Signs Temperature 98.8 F 08/17/18 06:00 Pulse Rate 79 08/17/18 06:00 Respiratory Rate 22 H 08/17/18 06:00 Blood Pressure 123/59 L 08/17/18 06:00 O2 Sat by Pulse Oximetry (%) 95 08/16/18 23:00 Constitutional: Yes: No Distress, Calm Respiratory: Yes: Regular, Rhonchi (minimal, scattered), Other (coarse BS bilat) Gastrointestinal: Yes: Normal Bowel Sounds, Soft, Abdomen, Obese, Tenderness Extremities: Yes: Other (clean dressing bilat) Edema: Yes Neurological: Yes: Alert, Oriented Labs: CBC, BMP 08/17/18 06:50 08/17/18 06:50 INR, PTT INR 1.10 (0.83-1.09) H 08/15/18 16:33 Problem List - Problems (1) Cellulitis of both lower extremities Code(s): L03.115 - CELLULITIS OF RIGHT LOWER LIMB; L03.116 - CELLULITIS OF LEFT LOWER LIMB (2) Fall Code(s): W19.XXXA - UNSPECIFIED FALL, INITIAL ENCOUNTER (3) CAD (coronary artery disease) Code(s): I25.10 - ATHSCL HEART DISEASE OF [place] CORONARY ARTERY W/O ANG PCTRS (4) CHF (congestive heart failure) Code(s): I50.9 - HEART FAILURE, UNSPECIFIED (5) CVA (cerebral vascular accident) Code(s): I63.9 - CEREBRAL INFARCTION, UNSPECIFIED (6) Diabetes mellitus Code(s): E11.9 - TYPE 2 DIABETES MELLITUS WITHOUT COMPLICATIONS (7) COPD (chronic obstructive pulmonary disease) Code(s): J44.9 - CHRONIC OBSTRUCTIVE PULMONARY DISEASE, UNSPECIFIED Qualifiers: COPD type: COPD with acute exacerbation Qualified Code(s): J44.1 - Chronic obstructive pulmonary disease with (acute) exacerbation (8) Hyperlipidemia Code(s): E78.5 - HYPERLIPIDEMIA, UNSPECIFIED (9) MARTIN treated with BiPAP Code(s): G47.33 - OBSTRUCTIVE SLEEP APNEA (ADULT) (PEDIATRIC) (10) PVD (peripheral vascular disease) Code(s): I73.9 - PERIPHERAL VASCULAR DISEASE, UNSPECIFIED (11) S/P femoral-popliteal bypass surgery Code(s): Z95.828 - PRESENCE OF OTHER VASCULAR IMPLANTS AND GRAFTS Assessment/Plan Cont IV abtx; To f/u with ID, Cardio Surgery consult Kayexalate AM labs PT Case was d/w pt's nurse.
[2018-08-17] MEDS ORDERED: SODIUM POLYSTYRENE SULFONATE 15 GM/60 ML BOTTLE PO ONE (11:08)
--- NOTE | 2018-08-17 11:44 | PN ---
Progress Note (short form) - Note Progress Note: PULMONARY AMBULATING IN HALLWAY WITH WALKER AND ASSISTANCE OF ONE vss/afebrile Heart: RRR Lung: distant breath sounds, no wheezes Abd: soft, nontender Ext: bilateral lower ext [place] wraps meds/notes/images/radiographs noted ASSESSMENT AND PLAN: Cellulitis COPD Chronic Hypoxic Respiratory Failure CAD HTN DM Hyperlipidemia CKD h/o CVA Smoker - continue inhaled bronchodilators as needed - Symbicort, Spiriva daily - O2 to keep Spo2>90% - can defer systemic steroids at this time - antibiotics for cellulitis - wound care - DVT prophylaxis Ted BUTT MD
--- NOTE | 2018-08-17 15:39 | PN ---
Progress Note (short form) - Note Progress Note: cc: falls s: Current Medications Acetaminophen (Tylenol -) 650 mg PO Q6H PRN PRN Reason: PAIN LEVEL 1-5 Last Admin: 08/17/18 05:09 Dose: 650 mg Albuterol Sulfate (Ventolin 0.083% Nebulizer Soln -) 1 amp NEB Q6H PRN PRN Reason: SHORT OF BREATH/WHEEZING Aspirin (Asa -) 81 mg PO DAILY [facility] Last Admin: 08/17/18 10:05 Dose: 81 mg Atorvastatin Calcium (Lipitor -) 20 mg PO HS [facility] Last Admin: 08/16/18 22:47 Dose: 20 mg Budesonide/Formoterol Fumarate (Symbicort 160/4.5mcg -) 2 puff IH BID [facility] Last Admin: 08/17/18 10:07 Dose: 2 puff Citalopram Hydrobromide (Celexa -) 40 mg PO DAILY [facility] Last Admin: 08/17/18 10:05 Dose: 40 mg Clopidogrel Bisulfate (Plavix -) 75 mg PO DAILY [facility] Last Admin: 08/17/18 10:05 Dose: 75 mg Emollient Ointment (Aquaphor -) 1 applic TP BID [facility] Last Admin: 08/17/18 10:05 Dose: 1 applic Heparin Sodium (Porcine) (Heparin -) 5,000 unit SQ BID [facility] Last Admin: 08/17/18 10:08 Dose: 5,000 unit Cefepime HCl 1 gm/ Dextrose 100 mls @ 200 mls/hr IVPB Q12H [facility]; Protocol Last Admin: 08/17/18 05:09 Dose: 200 mls/hr Vancomycin HCl (Vancomycin (Pre-Docked)) 1,000 mg in 250 mls @ 200 mls/hr IVPB Q24H [facility]; Protocol Last Admin: 08/16/18 20:09 Dose: 200 mls/hr Insulin Aspart (Novolog Vial Sliding Scale -) 1 vial SQ ACHS [facility]; Protocol Last Admin: 08/17/18 14:09 Dose: Not Given Insulin Detemir (Levemir Vial) 14 units SQ 0700,2200 [facility] Last Admin: 08/17/18 06:48 Dose: 14 units Multivitamins/Minerals/Vitamin C (Tab-A-Vit -) 1 tab PO DAILY [facility] Last Admin: 08/17/18 10:05 Dose: 1 tab Oxycodone HCl (Roxicodone -) 5 mg PO Q6H PRN PRN Reason: PAIN LEVEL 6-10 Last Admin: 08/17/18 10:06 Dose: 5 mg Tiotropium [place] (Spiriva Respimat) 2 puff IH DAILY [facility] Last Admin: 08/17/18 10:08 Dose: 2 puff Torsemide (Demadex -) 10 mg PO DAILY [facility] Last Admin: 08/17/18 10:06 Dose: 10 mg pe: Vital Signs Period Temp Pulse Resp BP Sys/Mullen Pulse Ox Last 24 Hr 97.5 F-98.8 F 68-88 18-22 123-136/55-74 92-95 Constitutional: Yes: No Distress, Calm Eyes: Yes: Conjunctiva Clear, HENT: Yes: Atraumatic, Normocephalic Neck: Yes: Supple, Trachea Midline Respiratory: Yes: cta bl nl eff Gastrointestinal: Yes: Normal Bowel Sounds, Soft Cardiovascular: Yes: Regular Rate and Rhythm JVD: No Carotid Bruit: No Heart Sounds: Yes: S1, S2 Extremities: Yes: Erythema, Other (erythema bilateral feet and ankles with weeping from wounds) Edema: trace/1+ le edema bl Peripheral Pulses: 1+ Left Doralis Pedis, 1+ Right Dorsalis Pedis Integumentary: no jaundice diaphoresis aaox3 echo 12/2016: nl lv/rv, mild lae, mild mr, mild-mod tr, possible mild as, mild phtn exercise mibi 01/02: no ischemia at 80% mphr ct chest: no chf EKG: sinus, LBBB, mobitz 1 (similar to prior EKGs) a/p: 68M h/o CVA, HTN, HLD, COPD (on 3L O2), CKD, DM, TIA, chronic diastolic hf /venous insufficiency, 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 falls: -mechanical in nature, no signs of cardiac etiology -can monitor tele, check ortho vs -PT eval Abnormal EKG, mobitz 1, LBBB: - chronic findings, has had prior event monitors in clinic showing mobitz 1 without significant pauses - avoid AV arsh blocking agents - trop neg, no signs acs COPD - seems stable presently chronic venous insuff/LE edema, recurrent cellulitis: - vasc surgery, Dr. Cordon/wound team consulted PAD: -prior h/o left fem-pop bypass, cont dapt, statin chronic diastolic CHF -echoes have been unremarkable or very TDS in past, most recent 12/2016 was unremarkable -cont home torsemide 10 qd htn: -stable, controlled hld: -cont statin h/o TIA (2003): -on ASA, statin for sec prevention, cont same
--- NOTE | 2018-08-17 16:31 | CONSULT ---
- Consultation REQUESTING PROVIDER: CONSULT REQUEST: We have been asked to surgically evaluate this patient for cellulitis. PCP:Noemy Valle HISTORY OF PRESENT ILLNESS: 68 yo Male well known to Vascular ( follows with Dr Cordon in wound care) with PMH CVA, CAD, HTN, HLD, COPD on 3L home O2, CKD, IDDM , h/o RLE bypass? chronic b/l LE wounds now admitted following multiple falls in one week in addition to worsening LE cellulitis. Pt reports falling out of his wheelchair at home while attempting to put his shoes on. Reports followup every [address] Cordon for his chronic le ulcrs. Pt currently does dressings with xeroform, 4x4, kerlix and clifton wraps changed every 3 days by VNS. Denies fevers, chills, n/v/d, abdominal pain. PMHx: as above PSHx: poor historian, no surgical history in emr Home Medications Medication Instructions Recorded Aspirin [ASA -] 81 mg PO DAILY 08/15/18 Atorvastatin Ca [Lipitor] 20 mg PO HS 08/15/18 Citalopram Hydrobromide 40 mg PO DAILY 08/15/18 [Citalopram HBr] Clopidogrel Bisulfate [Clopidogrel] 75 mg PO DAILY 08/15/18 Insulin (Levemir) [Levemir Vial] 14 unit SQ BID 08/15/18 Torsemide [Demadex] 10 mg PO DAILY 08/15/18 Vit B12/Folic Acid/B6/Aa No.15 1 each PO DAILY 08/15/18 [Glycotrol Capsule] Allergies Allergy/AdvReac Type Severity Reaction Status Date / Time amoxicillin trihydrate Allergy Unknown Verified 07/10/18 13:29 [From Augmentin] potassium clavulanate Allergy Unknown Verified 07/10/18 13:29 [From Augmentin] REVIEW OF SYSTEMS: CONSTITUTIONAL: Absent: fever, chills CARDIOVASCULAR: Absent: chest pain, syncope GASTROINTESTINAL: Absent: abdominal pain SKIN: Absent: + ulcers PHYSICAL EXAM: GENERAL: Awake, alert, and fully oriented, in no acute distress. HEAD: Normal with no signs of trauma. LOWER EXTREMITIES: B/l les with clifton wraps, kerlix, xeroform in place, dressings removed. RLE with superficial ulceration along posterior distal calf, clean based with moderate serous drainage, mild erythema of distal calf, no foul odor or other ulcers noted. Moderate amount of scaling skin to RLE and foot. LLE with small superficial ulceration at medial calf, clean based with mild serous drainage, no erythema noted. 2+ pitting edema b/l le's No calf tenderness. Vital Signs Temperature 98.4 F 08/17/18 14:58 Pulse Rate 88 08/17/18 14:58 Respiratory Rate 18 08/17/18 14:58 Blood Pressure 130/70 08/17/18 14:58 O2 Sat by Pulse Oximetry (%) 92 L 08/17/18 09:00 Lab Results WBC 4.6 K/mm3 (4.0-10.0) 08/17/18 06:50 RBC 4.18 M/mm3 (4.00-5.60) 08/17/18 06:50 Hgb 10.0 GM/dL (11.7-16.9) L 08/17/18 06:50 Hct 32.7 % (35.4-49) L D 08/17/18 06:50 MCV 78.3 fl (80-96) L 08/17/18 06:50 MCHC 30.5 g/dl (32.0-35.9) L 08/17/18 06:50 RDW 22.5 % (11.9-15.9) H 08/17/18 06:50 Plt Count 176 K/MM3 (134-434) 08/17/18 06:50 Sodium 140 mmol/L (136-145) 08/17/18 06:50 Potassium 5.3 mmol/L (3.5-5.1) H 08/17/18 06:50 Chloride 102 mmol/L (98-107) 08/17/18 06:50 Carbon Dioxide 35 mmol/L (21-32) H 08/17/18 06:50 Anion Gap 3 MMOL/L (8-16) L 08/17/18 06:50 BUN 30 mg/dL (7-18) H 08/17/18 06:50 Creatinine 1.2 mg/dL (0.55-1.3) 08/17/18 06:50 Random Glucose 64 mg/dL (74-106) L 08/17/18 06:50 Calcium 7.8 mg/dL (8.5-10.1) L 08/17/18 06:50 INR 1.10 (0.83-1.09) H 08/15/18 16:33 Duplex 08/15-no dvt b/l A/P: 68 y/o M well known with Vascular surgery with mmp as stated above, now a/ w falls and RLE cellulitis aty the site of chronic ulcerations. -Daily dressing changes with xeroform to lle ulcers and aquacel to rle ulcers, cover with kerlix/clifton wraps -Elevate b/l les while at rest -ABX per primary team -Remainder of care per primary team d.w attending Dr Cordon
[2018-08-17] MEDS: VANCOMYCIN 1 GRAM (PRE-DOCKED) 1,000 MG/250 ML BAG IVPB SCH (18:59)
[2018-08-17] MEDS: ALBUTEROL SO4 0.083% IH SOL 2.5 MG/3 ML VIAL.NEB. NEB PRN (20:19)
[2018-08-17] MEDS: ATORVASTATIN CA 20 MG TABLET (FP) PO SCH (22:07)
[2018-08-18] MEDS: ACETAMINOPHEN 325 MG TABLET (FP) PO PRN ×2 (02:16→16:37)
[2018-08-18] MEDS ORDERED: DEXTROSE 5%-WATER 100 ML IVPB ONE ×2 (05:42→17:42)
[2018-08-18] MEDS ORDERED: CEFEPIME HCL 1 GM VIAL (RESTRICTED TO ID) ONE ×2 (05:42→17:41)
[2018-08-18] MEDS: CEFEPIME 1 GM in DEXTROSE 5%-WATER 100 ML IVPB SCH ×2 (06:34→17:55)
[2018-08-18] MEDS: INSULIN SLIDING SCALE (NOVOLOG) 1 VIAL SQ SCH ×4 (06:44→21:31)
[2018-08-18] MEDS: INSULIN (LEVEMIR) 100 UNITS/ML UNITS SQ SCH ×2 (06:44→21:31)
[2018-08-18 07:35] LABS: HEMATOCRIT 30.6 % (35.4-49); HEMOGLOBIN 9.4 GM/dL (11.7-16.9); MCH 23.9 pg (25.7-33.7); MCHC 30.7 g/dl (32.0-35.9); MEAN CELL VOLUME 77.9 fl (80-96); MEAN PLT VOLUME 7.5 fl (7.5-11.1); PLATELET COUNT 160 K/MM3 (134-434); RBC 3.93 M/mm3 (4.00-5.60); RDW 21.8 % (11.9-15.9); WHITE BLOOD COUNT 4.1 K/mm3 (4.0-10.0)
[2018-08-18 08:31] LABS: ALBUMIN 2.3 g/dl (3.4-5.0); ALK PHOS 57 U/L (45-117); ANION GAP 4 MMOL/L (8-16); BILIRUBIN,TOTAL 0.4 mg/dL (0.2-1); BLOOD UREA NITROGEN 26 mg/dL (7-18); CALCIUM 7.4 mg/dL (8.5-10.1); CHLORIDE 100 mmol/L (98-107); CO2 36 mmol/L (21-32); POTASSIUM 4.5 mmol/L (3.5-5.1); SGOT/AST 15 U/L (15-37); SGPT/ALT 13 U/L (13-61); SODIUM 140 mmol/L (136-145); TOT PROT 5.3 g/dl (6.4-8.2)
[2018-08-18 08:54] LABS: GLUCOSE,RANDOM 45 mg/dL (74-106)
[2018-08-18] MEDS: CITALOPRAM HYDROBROMIDE 20 MG TABLET (FP) PO SCH (10:52)
[2018-08-18] MEDS: MULTIVITAMINS (DAILY MVI) TABLET (FP) PO SCH (10:52)
[2018-08-18] MEDS: ASPIRIN 81 MG CHEWABLE TABLETS PO SCH (10:52)
[2018-08-18] MEDS: CLOPIDOGREL BISULFATE 75 MG TABLET (FP) PO SCH (10:52)
[2018-08-18] MEDS: TORSEMIDE 10 MG TABLET PO SCH (10:52)
[2018-08-18] MEDS: BUDESONIDE/FORMETEROL FUMARATE 160/4.5 mcg INHALER IH SCH ×2 (10:53→21:34)
[2018-08-18] MEDS: TIOTROPIUM BROMIDE 2.5 MCG (SPIRIVA) RESPIMAT INHALER IH SCH (10:53)
[2018-08-18] MEDS: HEPARIN NA (PORCINE) 5,000 UNITS/ML 1ML VIAL SQ SCH ×2 (10:54→21:31)
[2018-08-18] MEDS: MINERAL OIL/PET HY-PHL TOPICAL OINTMENT 454 GM JAR TP SCH ×2 (11:36→21:33)
--- NOTE | 2018-08-18 13:11 | PN ---
Progress Note (short form) - Note Progress Note: PULMONARY Reports left chest wall pain reproducible with palpation. Denies cough or wheezing. Vital Signs Period Temp Pulse Resp BP Sys/Mullen Pulse Ox Last 24 Hr 98.2 F-98.4 F 60-88 18-20 130-150/60-74 98-98 Gen: NAD at rest Heart: RRR Lung: decreased breath sounds at the bases Abd: soft, nontender Ext: +legs wrapped CBC, BMP 08/18/18 06:00 08/18/18 06:00 Active Medications Acetaminophen (Tylenol -) 650 mg PO Q6H PRN PRN Reason: PAIN LEVEL 1-5 Last Admin: 08/18/18 02:16 Dose: 650 mg Albuterol Sulfate (Ventolin 0.083% Nebulizer Soln -) 1 amp NEB Q6H PRN PRN Reason: SHORT OF BREATH/WHEEZING Last Admin: 08/17/18 20:19 Dose: 1 amp Aspirin (Asa -) 81 mg PO DAILY [facility] Last Admin: 08/18/18 10:52 Dose: 81 mg Atorvastatin Calcium (Lipitor -) 20 mg PO HS [facility] Last Admin: 08/17/18 22:07 Dose: 20 mg Budesonide/Formoterol Fumarate (Symbicort 160/4.5mcg -) 2 puff IH BID [facility] Last Admin: 08/18/18 10:53 Dose: 2 puff Citalopram Hydrobromide (Celexa -) 40 mg PO DAILY [facility] Last Admin: 08/18/18 10:52 Dose: 40 mg Clopidogrel Bisulfate (Plavix -) 75 mg PO DAILY [facility] Last Admin: 08/18/18 10:52 Dose: 75 mg Emollient Ointment (Aquaphor -) 1 applic TP BID [facility] Last Admin: 08/18/18 11:36 Dose: 1 applic Heparin Sodium (Porcine) (Heparin -) 5,000 unit SQ BID [facility] Last Admin: 08/18/18 10:54 Dose: 5,000 unit Cefepime HCl 1 gm/ Dextrose 100 mls @ 200 mls/hr IVPB Q12H [facility]; Protocol Last Admin: 08/18/18 06:34 Dose: 200 mls/hr Vancomycin HCl (Vancomycin (Pre-Docked)) 1,000 mg in 250 mls @ 200 mls/hr IVPB Q24H [facility]; Protocol Last Admin: 08/17/18 18:59 Dose: 200 mls/hr Insulin Aspart (Novolog Vial Sliding Scale -) 1 vial SQ ACHS [facility]; Protocol Last Admin: 08/18/18 11:36 Dose: Not Given Insulin Detemir (Levemir Vial) 14 units SQ 0700,2200 [facility] Last Admin: 08/18/18 06:44 Dose: Not Given Multivitamins/Minerals/Vitamin C (Tab-A-Vit -) 1 tab PO DAILY [facility] Last Admin: 08/18/18 10:52 Dose: 1 tab Oxycodone HCl (Roxicodone -) 5 mg PO Q6H PRN PRN Reason: PAIN LEVEL 6-10 Last Admin: 08/17/18 10:06 Dose: 5 mg Tiotropium [place] (Spiriva Respimat) 2 puff IH DAILY [facility] Last Admin: 08/18/18 10:53 Dose: 2 puff Torsemide (Demadex -) 10 mg PO DAILY [facility] Last Admin: 08/18/18 10:52 Dose: 10 mg A/P Cellulitis COPD Chronic Hypoxic Respiratory Failure CAD HTN DM Hyperlipidemia CKD h/o CVA Smoker - will order lidoderm patch to chest - continue inhaled bronchodilators as needed - Symbicort BID, Spiriva daily - O2 to keep Spo2>90% - can defer systemic steroids at this time - antibiotics for cellulitis - wound care - DVT prophylaxis
--- NOTE | 2018-08-18 14:27 | PN ---
Progress Note, Physician Chief Complaint: in bed still with L sided pleuritic CP when moving no SOB consults meds reviewed - Current Medication List Current Medications: Active Medications Acetaminophen (Tylenol -) 650 mg PO Q6H PRN PRN Reason: PAIN LEVEL 1-5 Last Admin: 08/18/18 02:16 Dose: 650 mg Albuterol Sulfate (Ventolin 0.083% Nebulizer Soln -) 1 amp NEB Q6H PRN PRN Reason: SHORT OF BREATH/WHEEZING Last Admin: 08/17/18 20:19 Dose: 1 amp Aspirin (Asa -) 81 mg PO DAILY [facility] Last Admin: 08/18/18 10:52 Dose: 81 mg Atorvastatin Calcium (Lipitor -) 20 mg PO HS [facility] Last Admin: 08/17/18 22:07 Dose: 20 mg Budesonide/Formoterol Fumarate (Symbicort 160/4.5mcg -) 2 puff IH BID [facility] Last Admin: 08/18/18 10:53 Dose: 2 puff Citalopram Hydrobromide (Celexa -) 40 mg PO DAILY [facility] Last Admin: 08/18/18 10:52 Dose: 40 mg Clopidogrel Bisulfate (Plavix -) 75 mg PO DAILY [facility] Last Admin: 08/18/18 10:52 Dose: 75 mg Emollient Ointment (Aquaphor -) 1 applic TP BID [facility] Last Admin: 08/18/18 11:36 Dose: 1 applic Heparin Sodium (Porcine) (Heparin -) 5,000 unit SQ BID [facility] Last Admin: 08/18/18 10:54 Dose: 5,000 unit Cefepime HCl 1 gm/ Dextrose 100 mls @ 200 mls/hr IVPB Q12H [facility]; Protocol Last Admin: 08/18/18 06:34 Dose: 200 mls/hr Vancomycin HCl (Vancomycin (Pre-Docked)) 1,000 mg in 250 mls @ 200 mls/hr IVPB Q24H [facility]; Protocol Last Admin: 08/17/18 18:59 Dose: 200 mls/hr Insulin Aspart (Novolog Vial Sliding Scale -) 1 vial SQ ACHS [facility]; Protocol Last Admin: 08/18/18 11:36 Dose: Not Given Lidocaine (Lidoderm Patch -) 1 patch TP DAILY [facility] Miscellaneous (Lidoderm Patch Removal) 1 each MC DAILY@2200 [facility] Multivitamins/Minerals/Vitamin C (Tab-A-Vit -) 1 tab PO DAILY [facility] Last Admin: 08/18/18 10:52 Dose: 1 tab Oxycodone HCl (Roxicodone -) 5 mg PO Q6H PRN PRN Reason: PAIN LEVEL 6-10 Last Admin: 08/17/18 10:06 Dose: 5 mg Tiotropium [place] (Spiriva Respimat) 2 puff IH DAILY [facility] Last Admin: 08/18/18 10:53 Dose: 2 puff Torsemide (Demadex -) 10 mg PO DAILY [facility] Last Admin: 08/18/18 10:52 Dose: 10 mg - Objective Vital Signs: Vital Signs Temperature 98.2 F 08/18/18 07:04 Pulse Rate 60 08/18/18 07:04 Respiratory Rate 20 08/18/18 07:04 Blood Pressure 150/74 08/18/18 07:04 O2 Sat by Pulse Oximetry (%) 98 08/17/18 23:26 Constitutional: Yes: No Distress, Calm Eyes: Yes: Conjunctiva Clear HENT: Yes: Atraumatic Neck: Yes: Supple Cardiovascular: Yes: Regular Rate and Rhythm Respiratory: Yes: CTA Bilaterally Gastrointestinal: Yes: Soft Genitourinary: No: Hematuria Extremities: Yes: Erythema (legs). No: Cold, Cool Edema: Yes (legs) Integumentary: Yes: Rash (legs), Venous Stasis Changes (legs) Neurological: Yes: WNL, Alert, Oriented ...Motor Strength: WNL Psychiatric: Yes: WNL, Alert, Oriented. No: Agitated, Suicidal Ideation Labs: CBC, BMP 08/18/18 06:00 08/18/18 06:00 INR, PTT INR 1.10 (0.83-1.09) H 08/15/18 16:33 - ....Imaging Other: Report Reviewed Assessment/Plan 68 year old past medical history of CVA, CAD, HTN, HLD, COPD (3L O2), CKD, DM, chronic bilateral leg cellulitis admitted after multiple falls, L sided pleuritic CP and also bilateral legs cellulitis acute on chronic neurology and cardiology and pulmonary f/u ID for IV ATB legs cellulitis heme eval for adenopathy DVT falls decubs PFX d.w pt and staff
[2018-08-18] MEDS: LIDOCAINE 5% TOPICAL PATCH TP SCH (16:36)
[2018-08-18] MEDS: oxyCODONE HCL 5 MG TABLET PO PRN (16:36)
[2018-08-18] MEDS: VANCOMYCIN 1 GRAM (PRE-DOCKED) 1,000 MG/250 ML BAG IVPB SCH (18:56)
[2018-08-18] MEDS ORDERED: INSULIN (LEVEMIR) 100 UNITS/ML UNITS SQ ONE (21:17)
[2018-08-18] MEDS ORDERED: INSULIN (NOVOLOG) ASPART 100 UNITS/ML 10ML VIAL ONE (21:18)
[2018-08-18] MEDS: ATORVASTATIN CA 20 MG TABLET (FP) PO SCH (21:30)
[2018-08-18] MEDS: LIDOCAINE PATCH REMOVAL MC SCH (21:32)
[2018-08-19] MEDS ORDERED: DEXTROSE 5%-WATER 100 ML IVPB ONE ×2 (06:16→17:02)
[2018-08-19] MEDS ORDERED: CEFEPIME HCL 1 GM VIAL (RESTRICTED TO ID) ONE ×2 (06:16→17:01)
[2018-08-19] MEDS: CEFEPIME 1 GM in DEXTROSE 5%-WATER 100 ML IVPB SCH ×2 (06:20→17:16)
[2018-08-19] MEDS: INSULIN (LEVEMIR) 100 UNITS/ML UNITS SQ SCH ×2 (06:37→21:43)
[2018-08-19] MEDS: INSULIN SLIDING SCALE (NOVOLOG) 1 VIAL SQ SCH ×4 (06:38→21:37)
[2018-08-19 07:01] LABS: BASO % 0.7 % (0-2.0); EOS % 3.6 % (0-4.5); HEMOGLOBIN 11.4 GM/dL (11.7-16.9); LYMPH % 4.1 % (8-40); MCH 23.7 pg (25.7-33.7); MCHC 29.9 g/dl (32.0-35.9); MEAN CELL VOLUME 79.3 fl (80-96); MEAN PLT VOLUME 7.9 fl (7.5-11.1); MONO % 6.6 % (3.8-10.2); PLATELET COUNT 184 K/MM3 (134-434); RBC 4.79 M/mm3 (4.00-5.60); RDW 21.6 % (11.9-15.9); WHITE BLOOD COUNT 6.4 K/mm3 (4.0-10.0)
--- NOTE | 2018-08-19 08:19 | PN ---
Progress Note, Physician Chief Complaint: in bed NAD no new c/o less ribs pains but has legs pains at bedside - Current Medication List Current Medications: Active Medications Acetaminophen (Tylenol -) 650 mg PO Q6H PRN PRN Reason: PAIN LEVEL 1-5 Last Admin: 08/18/18 16:37 Dose: 650 mg Albuterol Sulfate (Ventolin 0.083% Nebulizer Soln -) 1 amp NEB Q6H PRN PRN Reason: SHORT OF BREATH/WHEEZING Last Admin: 08/17/18 20:19 Dose: 1 amp Aspirin (Asa -) 81 mg PO DAILY [facility] Last Admin: 08/18/18 10:52 Dose: 81 mg Atorvastatin Calcium (Lipitor -) 20 mg PO HS [facility] Last Admin: 08/18/18 21:30 Dose: 20 mg Budesonide/Formoterol Fumarate (Symbicort 160/4.5mcg -) 2 puff IH BID [facility] Last Admin: 08/18/18 21:34 Dose: 2 puff Citalopram Hydrobromide (Celexa -) 40 mg PO DAILY [facility] Last Admin: 08/18/18 10:52 Dose: 40 mg Clopidogrel Bisulfate (Plavix -) 75 mg PO DAILY [facility] Last Admin: 08/18/18 10:52 Dose: 75 mg Emollient Ointment (Aquaphor -) 1 applic TP BID [facility] Last Admin: 08/18/18 21:33 Dose: 1 applic Heparin Sodium (Porcine) (Heparin -) 5,000 unit SQ BID [facility] Last Admin: 08/18/18 21:31 Dose: 5,000 unit Cefepime HCl 1 gm/ Dextrose 100 mls @ 200 mls/hr IVPB Q12H [facility]; Protocol Last Admin: 08/19/18 06:20 Dose: 200 mls/hr Vancomycin HCl (Vancomycin (Pre-Docked)) 1,000 mg in 250 mls @ 200 mls/hr IVPB Q24H [facility]; Protocol Last Admin: 08/18/18 18:56 Dose: 200 mls/hr Insulin Aspart (Novolog Vial Sliding Scale -) 1 vial SQ ACHS [facility]; Protocol Last Admin: 08/19/18 06:38 Dose: Not Given Insulin Detemir (Levemir Vial) 10 units SQ 0700,2200 [facility] Last Admin: 08/19/18 06:37 Dose: Not Given Lidocaine (Lidoderm Patch -) 1 patch TP DAILY [facility] Last Admin: 08/18/18 16:36 Dose: 1 patch Miscellaneous (Lidoderm Patch Removal) 1 each MC DAILY@2200 [facility] Last Admin: 08/18/18 21:32 Dose: Not Given Multivitamins/Minerals/Vitamin C (Tab-A-Vit -) 1 tab PO DAILY [facility] Last Admin: 08/18/18 10:52 Dose: 1 tab Oxycodone HCl (Roxicodone -) 5 mg PO Q6H PRN PRN Reason: PAIN LEVEL 6-10 Last Admin: 08/18/18 16:36 Dose: 5 mg Tiotropium [place] (Spiriva Respimat) 2 puff IH DAILY [facility] Last Admin: 08/18/18 10:53 Dose: 2 puff Torsemide (Demadex -) 10 mg PO DAILY [facility] Last Admin: 08/18/18 10:52 Dose: 10 mg - Objective Vital Signs: Vital Signs Temperature 98.5 F 08/19/18 06:00 Pulse Rate 83 08/19/18 06:00 Respiratory Rate 20 08/19/18 06:00 Blood Pressure 152/67 08/19/18 06:00 O2 Sat by Pulse Oximetry (%) 99 08/18/18 22:32 Constitutional: Yes: No Distress, Calm Eyes: Yes: Conjunctiva Clear HENT: Yes: Atraumatic Neck: Yes: Supple Cardiovascular: Yes: Regular Rate and Rhythm Respiratory: Yes: Rales Gastrointestinal: Yes: Soft. No: Distention Genitourinary: No: CVA Tenderness - Left, CVA Tenderness - Right Musculoskeletal: No: Joint Stiffness, Joint Swelling Extremities: Yes: Other (wounds legs R dorsal foot bleeding (now stopped) seen by surgery). No: Cold, Cool Edema: Yes (legs) Integumentary: Yes: Rash Wound/Incision: Yes: Bleeding (r foot now stopped) Neurological: Yes: WNL, Alert, Oriented ...Motor Strength: WNL Psychiatric: Yes: WNL, Alert, Oriented. No: Agitated, Suicidal Ideation Labs: CBC, BMP 08/19/18 06:30 INR, PTT INR 1.10 (0.83-1.09) H 08/15/18 16:33 - ....Imaging Other: Report Reviewed Assessment/Plan 68 year old past medical history of CVA, CAD, HTN, HLD, COPD (3L O2), CKD, DM, chronic bilateral leg cellulitis admitted after multiple falls, L sided pleuritic CP and also bilateral legs cellulitis acute on chronic neurology, cardiology and pulmonary f/u ID for IV ATB legs cellulitis, surgery f/u for legs cellulitis heme eval for adenopathy DVT falls decubs PFX d.w pt and staff d/w pt and when stable to be transferred to SNF for rehab
[2018-08-19 09:04] LABS: ALBUMIN 2.8 g/dl (3.4-5.0); ALK PHOS 69 U/L (45-117); ANION GAP 7 MMOL/L (8-16); BILIRUBIN,TOTAL 0.5 mg/dL (0.2-1); BLOOD UREA NITROGEN 25 mg/dL (7-18); CALCIUM 8.2 mg/dL (8.5-10.1); CHLORIDE 102 mmol/L (98-107); CO2 33 mmol/L (21-32); CREATININE 0.9 mg/dL (0.55-1.3); GLUCOSE,RANDOM 53 mg/dL (74-106); SGOT/AST 14 U/L (15-37); SGPT/ALT 16 U/L (13-61); SODIUM 142 mmol/L (136-145)
[2018-08-19] MEDS: CLOPIDOGREL BISULFATE 75 MG TABLET (FP) PO SCH (10:06)
[2018-08-19] MEDS: CITALOPRAM HYDROBROMIDE 20 MG TABLET (FP) PO SCH (10:06)
[2018-08-19] MEDS: ASPIRIN 81 MG CHEWABLE TABLETS PO SCH (10:06)
[2018-08-19] MEDS: MULTIVITAMINS (DAILY MVI) TABLET (FP) PO SCH (10:06)
[2018-08-19] MEDS: HEPARIN NA (PORCINE) 5,000 UNITS/ML 1ML VIAL SQ SCH ×2 (10:07→21:37)
[2018-08-19] MEDS: BUDESONIDE/FORMETEROL FUMARATE 160/4.5 mcg INHALER IH SCH ×2 (10:07→21:40)
[2018-08-19] MEDS: TIOTROPIUM BROMIDE 2.5 MCG (SPIRIVA) RESPIMAT INHALER IH SCH (10:07)
[2018-08-19] MEDS: MINERAL OIL/PET HY-PHL TOPICAL OINTMENT 454 GM JAR TP SCH ×2 (10:07→21:41)
[2018-08-19] MEDS: LIDOCAINE 5% TOPICAL PATCH TP SCH (10:07)
[2018-08-19 10:08] LABS: ANISOCYTOSIS 2+; MACROCYTOSIS 0; PLATELET ESTIMATE NORMAL
[2018-08-19] MEDS: TORSEMIDE 10 MG TABLET PO SCH (10:08)
--- NOTE | 2018-08-19 12:06 | PN ---
Progress Note (short form) - Note Progress Note: PULMONARY Still with left chest wall pain reproducible with palpation. Denies cough or wheezing. Vital Signs Period Temp Pulse Resp BP Sys/Mullen Pulse Ox Last 24 Hr 98 F-98.5 F 70-83 18-20 140-152/67-83 98-99 Gen: NAD at rest Heart: RRR Lung: decreased breath sounds at the bases Abd: soft, nontender Ext: + edema CBC, BMP 08/19/18 06:30 08/19/18 06:30 Active Medications Acetaminophen (Tylenol -) 650 mg PO Q6H PRN PRN Reason: PAIN LEVEL 1-5 Last Admin: 08/18/18 16:37 Dose: 650 mg Albuterol Sulfate (Ventolin 0.083% Nebulizer Soln -) 1 amp NEB Q6H PRN PRN Reason: SHORT OF BREATH/WHEEZING Last Admin: 08/17/18 20:19 Dose: 1 amp Aspirin (Asa -) 81 mg PO DAILY [facility] Last Admin: 08/19/18 10:06 Dose: 81 mg Atorvastatin Calcium (Lipitor -) 20 mg PO HS [facility] Last Admin: 08/18/18 21:30 Dose: 20 mg Budesonide/Formoterol Fumarate (Symbicort 160/4.5mcg -) 2 puff IH BID [facility] Last Admin: 08/19/18 10:07 Dose: 2 puff Citalopram Hydrobromide (Celexa -) 40 mg PO DAILY [facility] Last Admin: 08/19/18 10:06 Dose: 40 mg Clopidogrel Bisulfate (Plavix -) 75 mg PO DAILY [facility] Last Admin: 08/19/18 10:06 Dose: 75 mg Emollient Ointment (Aquaphor -) 1 applic TP BID [facility] Last Admin: 08/19/18 10:07 Dose: 1 applic Heparin Sodium (Porcine) (Heparin -) 5,000 unit SQ BID [facility] Last Admin: 08/19/18 10:07 Dose: 5,000 unit Cefepime HCl 1 gm/ Dextrose 100 mls @ 200 mls/hr IVPB Q12H [facility]; Protocol Last Admin: 08/19/18 06:20 Dose: 200 mls/hr Vancomycin HCl (Vancomycin (Pre-Docked)) 1,000 mg in 250 mls @ 200 mls/hr IVPB Q24H [facility]; Protocol Last Admin: 08/18/18 18:56 Dose: 200 mls/hr Insulin Aspart (Novolog Vial Sliding Scale -) 1 vial SQ ACHS [facility]; Protocol Last Admin: 08/19/18 06:38 Dose: Not Given Insulin Detemir (Levemir Vial) 10 units SQ 0700,2200 [facility] Last Admin: 08/19/18 06:37 Dose: Not Given Lidocaine (Lidoderm Patch -) 1 patch TP DAILY [facility] Last Admin: 08/19/18 10:07 Dose: 1 patch Miscellaneous (Lidoderm Patch Removal) 1 each MC DAILY@2200 [facility] Last Admin: 08/18/18 21:32 Dose: Not Given Multivitamins/Minerals/Vitamin C (Tab-A-Vit -) 1 tab PO DAILY [facility] Last Admin: 08/19/18 10:06 Dose: 1 tab Oxycodone HCl (Roxicodone -) 5 mg PO Q6H PRN PRN Reason: PAIN LEVEL 6-10 Last Admin: 08/18/18 16:36 Dose: 5 mg Tiotropium [place] (Spiriva Respimat) 2 puff IH DAILY [facility] Last Admin: 08/19/18 10:07 Dose: 2 puff Torsemide (Demadex -) 10 mg PO DAILY [facility] Last Admin: 08/19/18 10:08 Dose: 10 mg A/P Cellulitis COPD Chronic Hypoxic Respiratory Failure CAD HTN DM Hyperlipidemia CKD h/o CVA Smoker - lidoderm patch to chest - continue inhaled bronchodilators as needed - Symbicort BID, Spiriva daily - O2 to keep Spo2>90% - can defer systemic steroids at this time - antibiotics for cellulitis - wound care - DVT prophylaxis
[2018-08-19] MEDS: VANCOMYCIN 1 GRAM (PRE-DOCKED) 1,000 MG/250 ML BAG IVPB SCH (18:16)
[2018-08-19] MEDS: oxyCODONE HCL 5 MG TABLET PO PRN (20:52)
[2018-08-19] MEDS: ATORVASTATIN CA 20 MG TABLET (FP) PO SCH (21:37)
[2018-08-19] MEDS: LIDOCAINE PATCH REMOVAL MC SCH (21:37)
[2018-08-19] MEDS: ALBUTEROL SO4 0.083% IH SOL 2.5 MG/3 ML VIAL.NEB. NEB PRN (22:13)
--- NOTE | 2018-08-19 22:40 | PN ---
Progress Note (short form) - Note Progress Note: Patient with multiple comorbidities, including long-standing chronic LE cellulitis, is admitted for exacerbation of the same. CT abdomen has redemonstrated pelvic and retroperitoneal lymphadenopathy, and hematology consulted in that regard. Patient unaware of this issue, but has impaired insight. No new complaints. Denies constitutional symptoms past several months. Inpatient Meds reviewed. Current Medications Generic Name Dose Route Start Last Admin Trade Name Freq PRN Reason Stop Dose Admin Acetaminophen 650 mg 08/17/18 01:14 08/18/18 16:37 Tylenol - PO 650 mg Q6H PRN Administration PAIN LEVEL 1-5 Albuterol Sulfate 1 amp 08/17/18 11:06 08/19/18 22:13 Ventolin 0.083% Nebulizer Soln - NEB 1 amp Q6H PRN Administration SHORT OF BREATH/WHEEZING Aspirin 81 mg 08/16/18 10:00 08/19/18 10:06 Asa - PO 81 mg DAILY RAJESH Administration Atorvastatin Calcium 20 mg 08/16/18 22:00 08/19/18 21:37 Lipitor - PO 20 mg HS RAJESH Administration Budesonide/Formoterol Fumarate 2 puff 08/16/18 22:00 08/19/18 21:40 Symbicort 160/4.5mcg - IH 2 puff BID RAJESH Administration Citalopram Hydrobromide 40 mg 08/16/18 10:00 08/19/18 10:06 Celexa - PO 40 mg DAILY RAJESH Administration Clopidogrel Bisulfate 75 mg 08/16/18 10:00 08/19/18 10:06 Plavix - PO 75 mg DAILY RAJESH Administration Emollient Ointment 1 applic 08/16/18 22:00 08/19/18 21:41 Aquaphor - TP 1 applic BID RAJESH Administration Heparin Sodium (Porcine) 5,000 unit 08/16/18 10:00 08/19/18 21:37 Heparin - SQ 5,000 unit BID RAJESH Administration Cefepime HCl 1 gm/ Dextrose 100 mls @ 200 mls/hr 08/16/18 18:00 08/19/18 17: 16 IVPB 200 mls/hr Q12H RAJESH Administration Protocol Vancomycin HCl 1,000 mg in 250 mls @ 200 mls/hr 08/16/18 18:07 08/19/18 18:16 Vancomycin (Pre-Docked) IVPB 200 mls/hr Q24H RAJESH Administration Protocol Insulin Aspart 1 vial 08/16/18 07:00 08/19/18 21:37 Novolog Vial Sliding Scale - SQ Not Given ACHS [facility] Protocol Insulin Detemir 10 units 08/18/18 14:27 08/19/18 21:43 Levemir Vial SQ Not Given 0700,2200 RAJESH Lidocaine 1 patch 08/18/18 13:15 08/19/18 10:07 Lidoderm Patch - TP 1 patch DAILY RAJESH Administration Miscellaneous 1 each 08/18/18 22:00 08/19/18 21:37 Lidoderm Patch Removal MC Not Given DAILY@2200 RAJESH Multivitamins/Minerals/Vitamin C 1 tab 08/16/18 10:00 08/19/18 10:06 Tab-A-Vit - PO 1 tab DAILY RAJESH Administration Oxycodone HCl 5 mg 08/17/18 01:14 08/19/18 20:52 Roxicodone - PO 5 mg Q6H PRN Administration PAIN LEVEL 6-10 Tiotropium [place] 2 puff 08/16/18 15:45 08/19/18 10:07 Spiriva Respimat IH 2 puff DAILY RAJESH Administration Torsemide 10 mg 08/16/18 10:00 08/19/18 10:08 Demadex - PO 10 mg DAILY RAJESH Administration On Examination: Last Vital Signs Temp Pulse Resp BP Pulse Ox 97.8 F 63 18 145/73 99 08/19/18 18:00 08/19/18 18:00 08/19/18 18:00 08/19/18 18:00 08/19/18 20:35 General: In no acute distress, obese Extremities: No pallor or icterus. No palpable lymphadenopathy. CVS: S1, S2, regular, no gallop or murmur. Chest: soft breath sounds Abdomen: Limited exam (obesity) non-tender, no palpable organomegaly. Neuro: Alert, oriented, non-focal. Labs: CBC, BMP 08/19/18 06:30 08/19/18 06:30 Assessment. Stable mild pelvic, inguional, and retroperitoneal adenopathy, noted on CT scan , and unchanged since May. Note that that at that time hematology was consulted for the same reason. Dr Nieto indicated then that the nodes were likely reactive.An ultrasound then showed fatty replacement of the arsh architecture, consistent with this. Recommendation then as below.. "ASSESSMENT AND PLAN:Sonogram of inguinal nodes largely replaced with fatty hilum Suggest reactive nodes. Would follow up with CT in 3-4 months and after antibiotic therapy has been completed." Still has active infection, so would not expect improvement in nodes. May consider repeat scan in 4-6 months, if cellulitis significantly improved.
[2018-08-20] MEDS ORDERED: DEXTROSE 5%-WATER 100 ML IVPB ONE ×2 (05:40→17:03)
[2018-08-20] MEDS ORDERED: CEFEPIME HCL 1 GM VIAL (RESTRICTED TO ID) ONE ×2 (05:40→17:03)
[2018-08-20] MEDS: CEFEPIME 1 GM in DEXTROSE 5%-WATER 100 ML IVPB SCH ×2 (05:51→17:09)
[2018-08-20] MEDS: INSULIN SLIDING SCALE (NOVOLOG) 1 VIAL SQ SCH ×4 (06:16→21:39)
[2018-08-20] MEDS ORDERED: INSULIN (LEVEMIR) 100 UNITS/ML UNITS SQ ONE (07:12)
[2018-08-20] MEDS: INSULIN (LEVEMIR) 100 UNITS/ML UNITS SQ SCH ×2 (07:13→21:41)
[2018-08-20] MEDS: ALBUTEROL SO4 0.083% IH SOL 2.5 MG/3 ML VIAL.NEB. NEB PRN ×2 (08:00→12:15)
--- NOTE | 2018-08-20 09:22 | PN ---
Progress Note (short form) - Note Progress Note: Neurology History of Present Illness 68 year old past medical history of CVA, CAD, HTN, HLD, COPD (3L O2), CKD, DM, chronic bilateral leg cellulitis comes to the ED after unwitnessed fall on day of admission. Patient on ASA and plavix. Denied loss of consciousness, head trauma, neck pain. The patient has had 3 falls reportedly in the past 1 week. 3 days prior the reportedly witnessed the patient walking without his walker and start to fall down while in the kitchen. She caught the patient before he fell to the ground. He was brought to the ER and CT head reviewed and discussed and though no acute changes, chronic R cerebellar and L basal ganglia infarct seen. These can contribute to gait instability. Also with cellulities and diabetes that may complicate patient's ambulation. CT L spine reviewed, stable compression fx of L1 noted, no interval change. No spinal stenosis or neural foraminal narrowing noted. No new neurologic complaints and stable over weekend. Patient denies back pain but c/o L rib pain still. Asking similar questions regarding this as he did last week. Allergies/Adverse Reactions: Allergies Allergy/AdvReac Type Severity Reaction Status Date / Time amoxicillin trihydrate Allergy Unknown Verified 07/10/18 13:29 [From Augmentin] potassium clavulanate Allergy Unknown Verified 07/10/18 13:29 [From Augmentin] Active Medications Acetaminophen (Tylenol -) 650 mg PO Q6H PRN PRN Reason: PAIN LEVEL 1-5 Last Admin: 08/18/18 16:37 Dose: 650 mg Albuterol Sulfate (Ventolin 0.083% Nebulizer Soln -) 1 amp NEB Q6H PRN PRN Reason: SHORT OF BREATH/WHEEZING Last Admin: 08/20/18 08:00 Dose: 1 amp Aspirin (Asa -) 81 mg PO DAILY [facility] Last Admin: 08/19/18 10:06 Dose: 81 mg Atorvastatin Calcium (Lipitor -) 20 mg PO HS [facility] Last Admin: 08/19/18 21:37 Dose: 20 mg Budesonide/Formoterol Fumarate (Symbicort 160/4.5mcg -) 2 puff IH BID [facility] Last Admin: 08/19/18 21:40 Dose: 2 puff Citalopram Hydrobromide (Celexa -) 40 mg PO DAILY [facility] Last Admin: 08/19/18 10:06 Dose: 40 mg Clopidogrel Bisulfate (Plavix -) 75 mg PO DAILY [facility] Last Admin: 08/19/18 10:06 Dose: 75 mg Emollient Ointment (Aquaphor -) 1 applic TP BID [facility] Last Admin: 08/19/18 21:41 Dose: 1 applic Heparin Sodium (Porcine) (Heparin -) 5,000 unit SQ BID [facility] Last Admin: 08/19/18 21:37 Dose: 5,000 unit Cefepime HCl 1 gm/ Dextrose 100 mls @ 200 mls/hr IVPB Q12H [facility]; Protocol Last Admin: 08/20/18 05:51 Dose: 200 mls/hr Vancomycin HCl (Vancomycin (Pre-Docked)) 1,000 mg in 250 mls @ 200 mls/hr IVPB Q24H [facility]; Protocol Last Admin: 08/19/18 18:16 Dose: 200 mls/hr Insulin Aspart (Novolog Vial Sliding Scale -) 1 vial SQ ACHS [facility]; Protocol Last Admin: 08/20/18 06:16 Dose: Not Given Insulin Detemir (Levemir Vial) 10 units SQ 0700,2200 [facility] Last Admin: 08/20/18 07:13 Dose: 10 units Lidocaine (Lidoderm Patch -) 1 patch TP DAILY [facility] Last Admin: 08/19/18 10:07 Dose: 1 patch Miscellaneous (Lidoderm Patch Removal) 1 each MC DAILY@2200 [facility] Last Admin: 08/19/18 21:37 Dose: Not Given Multivitamins/Minerals/Vitamin C (Tab-A-Vit -) 1 tab PO DAILY [facility] Last Admin: 08/19/18 10:06 Dose: 1 tab Oxycodone HCl (Roxicodone -) 5 mg PO Q6H PRN PRN Reason: PAIN LEVEL 6-10 Last Admin: 08/19/18 20:52 Dose: 5 mg Tiotropium [place] (Spiriva Respimat) 2 puff IH DAILY [facility] Last Admin: 08/19/18 10:07 Dose: 2 puff Torsemide (Demadex -) 10 mg PO DAILY [facility] Last Admin: 08/19/18 10:08 Dose: 10 mg *Physical Exam Vital Signs Period Temp Pulse Resp BP Sys/Mullen Pulse Ox Last 24 Hr 97.6 F-98.3 F 63-92 18-22 124-146/65-81 99-99 Gen: Awake, alert, responds to questions Card: RRR, nml S1,S2 Resp: decreased breath sounds Abdomen: Soft, nontender, bowel sounds active Head atraumatic and normocephalic CN: PERRL, EOMI intact, no apparent facial droop, no abnormalities in facial sensation, palate elevates, uvula and tongue midline Motor: Full strength to confrontation in upper and lower extermities proximally and distally. Tone normal throughout Sensory: Decreased pinprick in distal lower extremities Reflexes: 1+ biceps, brachioradialis, patellar, achillies Coordination: Intact on [id number] testing Gait: Deferred CBCD WBC 6.4 K/mm3 (4.0-10.0) 08/19/18 06:30 RBC 4.79 M/mm3 (4.00-5.60) 08/19/18 06:30 Hgb 11.4 GM/dL (11.7-16.9) L 08/19/18 06:30 Hct 38.0 % (35.4-49) D 08/19/18 06:30 MCV 79.3 fl (80-96) L 08/19/18 06:30 MCHC 29.9 g/dl (32.0-35.9) L 08/19/18 06:30 RDW 21.6 % (11.9-15.9) H 08/19/18 06:30 Plt Count 184 K/MM3 (134-434) 08/19/18 06:30 MPV 7.9 fl (7.5-11.1) 08/19/18 06:30 CMP Sodium 142 mmol/L (136-145) 08/19/18 06:30 Potassium 5.0 mmol/L (3.5-5.1) 08/19/18 06:30 Chloride 102 mmol/L (98-107) 08/19/18 06:30 Carbon Dioxide 33 mmol/L (21-32) H 08/19/18 06:30 Anion Gap 7 MMOL/L (8-16) L 08/19/18 06:30 BUN 25 mg/dL (7-18) H 08/19/18 06:30 Creatinine 0.9 mg/dL (0.55-1.3) 08/19/18 06:30 Creat Clearance w eGFR > 60 (>60) 08/19/18 06:30 Random Glucose 53 mg/dL (74-106) L 08/19/18 06:30 Calcium 8.2 mg/dL (8.5-10.1) L 08/19/18 06:30 Total Bilirubin 0.5 mg/dL (0.2-1) 08/19/18 06:30 AST 14 U/L (15-37) L 08/19/18 06:30 ALT 16 U/L (13-61) 08/19/18 06:30 Alkaline Phosphatase 69 U/L (45-117) 08/19/18 06:30 Total Protein 6.0 g/dl (6.4-8.2) L 08/19/18 06:30 Albumin 2.8 g/dl (3.4-5.0) L 08/19/18 06:30 CARDIAC ENZYMES Creatine Kinase 74 IU/L (26-308) 08/15/18 17:36 Troponin I < 0.02 ng/ml (0.00-0.05) 08/15/18 17:36 Medical Decision Making 68 year old past medical history of CVA, CAD, HTN, HLD, COPD (3L O2), CKD, DM, chronic bilateral leg cellulitis comes to the ED after unwitnessed fall on day of admission. Patient on ASA and plavix. Denied loss of consciousness, head trauma, neck pain. The patient has had 3 falls reportedly in the past 1 week. 3 days prior the reportedly witnessed the patient walking without his walker and start to fall down while in the kitchen. She caught the patient before he fell to the ground. He was brought to the ER and CT head reviewed and discussed and though no acute changes, chronic R cerebellar and L basal ganglia infarct seen. These can contribute to gait instability. Also with cellulities with diabetes that may complicate patient's ambulation. CT L spine reviewed, no acute changes, stable L1 compression fracture, unchanged from prior. Physical therapy recommended, gait training and ambulation. Would benefit from using assistive device. Treatment for underlying cellulitis ongoing. Monitor glucose, maintain normal range. On ASA and Plavix for prior CVA, continue statin, goal LDL < 70. Fall precautions, DVT ppx. Neurologically stable over weekend and no new events.
--- NOTE | 2018-08-20 09:47 | PN ---
Progress Note, Physician History of Present Illness: Pt w/o SOB, CP, palpitations, abd pain. Pt is asking for crackers (4 to 6) - Current Medication List Current Medications: Active Medications Acetaminophen (Tylenol -) 650 mg PO Q6H PRN PRN Reason: PAIN LEVEL 1-5 Last Admin: 08/18/18 16:37 Dose: 650 mg Albuterol Sulfate (Ventolin 0.083% Nebulizer Soln -) 1 amp NEB Q6H PRN PRN Reason: SHORT OF BREATH/WHEEZING Last Admin: 08/20/18 08:00 Dose: 1 amp Aspirin (Asa -) 81 mg PO DAILY [facility] Last Admin: 08/19/18 10:06 Dose: 81 mg Atorvastatin Calcium (Lipitor -) 20 mg PO HS [facility] Last Admin: 08/19/18 21:37 Dose: 20 mg Budesonide/Formoterol Fumarate (Symbicort 160/4.5mcg -) 2 puff IH BID [facility] Last Admin: 08/19/18 21:40 Dose: 2 puff Citalopram Hydrobromide (Celexa -) 40 mg PO DAILY [facility] Last Admin: 08/19/18 10:06 Dose: 40 mg Clopidogrel Bisulfate (Plavix -) 75 mg PO DAILY [facility] Last Admin: 08/19/18 10:06 Dose: 75 mg Emollient Ointment (Aquaphor -) 1 applic TP BID [facility] Last Admin: 08/19/18 21:41 Dose: 1 applic Heparin Sodium (Porcine) (Heparin -) 5,000 unit SQ BID [facility] Last Admin: 08/19/18 21:37 Dose: 5,000 unit Cefepime HCl 1 gm/ Dextrose 100 mls @ 200 mls/hr IVPB Q12H [facility]; Protocol Last Admin: 08/20/18 05:51 Dose: 200 mls/hr Vancomycin HCl (Vancomycin (Pre-Docked)) 1,000 mg in 250 mls @ 200 mls/hr IVPB Q24H [facility]; Protocol Last Admin: 08/19/18 18:16 Dose: 200 mls/hr Insulin Aspart (Novolog Vial Sliding Scale -) 1 vial SQ ACHS [facility]; Protocol Last Admin: 08/20/18 06:16 Dose: Not Given Insulin Detemir (Levemir Vial) 10 units SQ 0700,2200 [facility] Last Admin: 08/20/18 07:13 Dose: 10 units Lidocaine (Lidoderm Patch -) 1 patch TP DAILY [facility] Last Admin: 08/19/18 10:07 Dose: 1 patch Miscellaneous (Lidoderm Patch Removal) 1 each MC DAILY@2200 [facility] Last Admin: 08/19/18 21:37 Dose: Not Given Multivitamins/Minerals/Vitamin C (Tab-A-Vit -) 1 tab PO DAILY [facility] Last Admin: 08/19/18 10:06 Dose: 1 tab Oxycodone HCl (Roxicodone -) 5 mg PO Q6H PRN PRN Reason: PAIN LEVEL 6-10 Last Admin: 08/19/18 20:52 Dose: 5 mg Tiotropium [place] (Spiriva Respimat) 2 puff IH DAILY [facility] Last Admin: 08/19/18 10:07 Dose: 2 puff Torsemide (Demadex -) 10 mg PO DAILY [facility] Last Admin: 08/19/18 10:08 Dose: 10 mg - Objective Vital Signs: Vital Signs Temperature 98.2 F 08/20/18 06:51 Pulse Rate 92 H 08/20/18 06:51 Respiratory Rate 18 08/20/18 06:51 Blood Pressure 124/68 08/20/18 06:51 O2 Sat by Pulse Oximetry (%) 99 08/19/18 21:00 Constitutional: Yes: No Distress, Calm Cardiovascular: Yes: Regular Rate and Rhythm, S1, S2 Respiratory: Yes: Regular, CTA Bilaterally. No: Rales Gastrointestinal: Yes: Normal Bowel Sounds, Soft, Abdomen, Obese Extremities: Yes: Other (bilateral cellulitis of LE) Edema: Yes Neurological: Yes: Alert, Oriented (to place, person) Labs: CBC, BMP 08/19/18 06:30 08/19/18 06:30 INR, PTT INR 1.10 (0.83-1.09) H 08/15/18 16:33 Problem List - Problems (1) Cellulitis of both lower extremities Code(s): L03.115 - CELLULITIS OF RIGHT LOWER LIMB; L03.116 - CELLULITIS OF LEFT LOWER LIMB (2) Fall Code(s): W19.XXXA - UNSPECIFIED FALL, INITIAL ENCOUNTER (3) CAD (coronary artery disease) Code(s): I25.10 - ATHSCL HEART DISEASE OF [place] CORONARY ARTERY W/O ANG PCTRS (4) CHF (congestive heart failure) Code(s): I50.9 - HEART FAILURE, UNSPECIFIED (5) CVA (cerebral vascular accident) Code(s): I63.9 - CEREBRAL INFARCTION, UNSPECIFIED (6) Diabetes mellitus Code(s): E11.9 - TYPE 2 DIABETES MELLITUS WITHOUT COMPLICATIONS (7) COPD (chronic obstructive pulmonary disease) Code(s): J44.9 - CHRONIC OBSTRUCTIVE PULMONARY DISEASE, UNSPECIFIED Qualifiers: COPD type: COPD with acute exacerbation Qualified Code(s): J44.1 - Chronic obstructive pulmonary disease with (acute) exacerbation (8) Hyperlipidemia Code(s): E78.5 - HYPERLIPIDEMIA, UNSPECIFIED (9) MARTIN treated with BiPAP Code(s): G47.33 - OBSTRUCTIVE SLEEP APNEA (ADULT) (PEDIATRIC) (10) PVD (peripheral vascular disease) Code(s): I73.9 - PERIPHERAL VASCULAR DISEASE, UNSPECIFIED (11) S/P femoral-popliteal bypass surgery Code(s): Z95.828 - PRESENCE OF OTHER VASCULAR IMPLANTS AND GRAFTS (12) Lymphadenopathy Code(s): R59.1 - GENERALIZED ENLARGED LYMPH NODES Assessment/Plan Cont IV abtx; To f/u with ID, Cardio, Pulmonary, Surgery. AM labs PT Case was d/w pt's nurse.
[2018-08-20] MEDS ORDERED: PT OWN MED DRAWER 7, Y5N ONE (10:14)
[2018-08-20] MEDS: MULTIVITAMINS (DAILY MVI) TABLET (FP) PO SCH (10:21)
[2018-08-20] MEDS: CLOPIDOGREL BISULFATE 75 MG TABLET (FP) PO SCH (10:21)
[2018-08-20] MEDS: ASPIRIN 81 MG CHEWABLE TABLETS PO SCH (10:21)
[2018-08-20] MEDS: LIDOCAINE 5% TOPICAL PATCH TP SCH (10:21)
[2018-08-20] MEDS: HEPARIN NA (PORCINE) 5,000 UNITS/ML 1ML VIAL SQ SCH ×2 (10:22→21:39)
[2018-08-20] MEDS: CITALOPRAM HYDROBROMIDE 20 MG TABLET (FP) PO SCH (10:22)
[2018-08-20] MEDS: TORSEMIDE 10 MG TABLET PO SCH (10:22)
[2018-08-20] MEDS: ACETAMINOPHEN 325 MG TABLET (FP) PO PRN (10:22)
[2018-08-20] MEDS: BUDESONIDE/FORMETEROL FUMARATE 160/4.5 mcg INHALER IH SCH ×2 (10:23→22:39)
[2018-08-20] MEDS: TIOTROPIUM BROMIDE 2.5 MCG (SPIRIVA) RESPIMAT INHALER IH SCH (10:23)
[2018-08-20] MEDS: MINERAL OIL/PET HY-PHL TOPICAL OINTMENT 454 GM JAR TP SCH ×2 (10:23→21:42)
--- NOTE | 2018-08-20 12:06 | PN ---
Progress Note (short form) - Note Progress Note: Still with some left chest wall pain. Noted Lidocaine patch was just applied. Denies cough or wheezing. Intake & Output 08/17/18 08/18/18 08/19/18 08/20/18 23:59 23:59 23:59 23:59 Intake Total 950 1100 850 900 Output Total 500 600 Balance 950 600 250 900 Weight 231 lb Last Vital Signs Temp Pulse Resp BP Pulse Ox 98.2 F 92 H 18 124/68 99 08/20/18 06:51 08/20/18 06:51 08/20/18 06:51 08/20/18 06:51 08/19/18 21:00 Active Medications Acetaminophen (Tylenol -) 650 mg PO Q6H PRN PRN Reason: PAIN LEVEL 1-5 Last Admin: 08/20/18 10:22 Dose: 650 mg Albuterol Sulfate (Ventolin 0.083% Nebulizer Soln -) 1 amp NEB Q6H PRN PRN Reason: SHORT OF BREATH/WHEEZING Last Admin: 08/20/18 08:00 Dose: 1 amp Aspirin (Asa -) 81 mg PO DAILY [facility] Last Admin: 08/20/18 10:21 Dose: 81 mg Atorvastatin Calcium (Lipitor -) 20 mg PO HS [facility] Last Admin: 08/19/18 21:37 Dose: 20 mg Budesonide/Formoterol Fumarate (Symbicort 160/4.5mcg -) 2 puff IH BID [facility] Last Admin: 08/20/18 10:23 Dose: 2 puff Citalopram Hydrobromide (Celexa -) 40 mg PO DAILY [facility] Last Admin: 08/20/18 10:22 Dose: 40 mg Clopidogrel Bisulfate (Plavix -) 75 mg PO DAILY [facility] Last Admin: 08/20/18 10:21 Dose: 75 mg Emollient Ointment (Aquaphor -) 1 applic TP BID [facility] Last Admin: 08/20/18 10:23 Dose: 1 applic Heparin Sodium (Porcine) (Heparin -) 5,000 unit SQ BID [facility] Last Admin: 08/20/18 10:22 Dose: 5,000 unit Cefepime HCl 1 gm/ Dextrose 100 mls @ 200 mls/hr IVPB Q12H [facility]; Protocol Last Admin: 08/20/18 05:51 Dose: 200 mls/hr Vancomycin HCl (Vancomycin (Pre-Docked)) 1,000 mg in 250 mls @ 200 mls/hr IVPB Q24H [facility]; Protocol Last Admin: 08/19/18 18:16 Dose: 200 mls/hr Insulin Aspart (Novolog Vial Sliding Scale -) 1 vial SQ ACHS [facility]; Protocol Last Admin: 08/20/18 06:16 Dose: Not Given Insulin Detemir (Levemir Vial) 10 units SQ 0700,2200 [facility] Last Admin: 08/20/18 07:13 Dose: 10 units Lidocaine (Lidoderm Patch -) 1 patch TP DAILY [facility] Last Admin: 08/20/18 10:21 Dose: 1 patch Miscellaneous (Lidoderm Patch Removal) 1 each MC DAILY@2200 [facility] Last Admin: 08/19/18 21:37 Dose: Not Given Multivitamins/Minerals/Vitamin C (Tab-A-Vit -) 1 tab PO DAILY [facility] Last Admin: 08/20/18 10:21 Dose: 1 tab Oxycodone HCl (Roxicodone -) 5 mg PO Q6H PRN PRN Reason: PAIN LEVEL 6-10 Last Admin: 08/19/18 20:52 Dose: 5 mg Tiotropium [place] (Spiriva Respimat) 2 puff IH DAILY [facility] Last Admin: 08/20/18 10:23 Dose: 2 puff Torsemide (Demadex -) 10 mg PO DAILY [facility] Last Admin: 08/20/18 10:22 Dose: 10 mg Gen: NAD at rest Heart: RRR Lung: decreased breath sounds at the bases Abd: soft, nontender Ext: + edema A/P Cellulitis COPD Chronic Hypoxic Respiratory Failure CAD HTN DM Hyperlipidemia CKD h/o CVA Smoker - lidoderm patch to chest - continue inhaled bronchodilators as needed - Symbicort BID, Spiriva daily - O2 to keep Spo2>90% - can defer systemic steroids at this time - antibiotics for cellulitis - wound care - DVT prophylaxis Dr Smalls
[2018-08-20] MEDS ORDERED: INSULIN (NOVOLOG) ASPART 100 UNITS/ML 10ML VIAL ONE ×2 (12:19→20:35)
[2018-08-20] MEDS: VANCOMYCIN 1 GRAM (PRE-DOCKED) 1,000 MG/250 ML BAG IVPB SCH (18:22)
[2018-08-20] MEDS: ATORVASTATIN CA 20 MG TABLET (FP) PO SCH (21:34)
[2018-08-20] MEDS: LIDOCAINE PATCH REMOVAL MC SCH (21:35)
[2018-08-21] MEDS ORDERED: CEFEPIME HCL 1 GM VIAL (RESTRICTED TO ID) ONE ×2 (05:02→17:32)
[2018-08-21] MEDS ORDERED: DEXTROSE 5%-WATER 100 ML IVPB ONE ×2 (05:03→17:32)
[2018-08-21] MEDS: CEFEPIME 1 GM in DEXTROSE 5%-WATER 100 ML IVPB SCH ×2 (05:47→17:38)
[2018-08-21] MEDS: INSULIN SLIDING SCALE (NOVOLOG) 1 VIAL SQ SCH ×4 (06:05→22:25)
[2018-08-21] MEDS: INSULIN (LEVEMIR) 100 UNITS/ML UNITS SQ SCH ×2 (06:06→22:24)
[2018-08-21 09:39] LABS: HEMATOCRIT 33.8 % (35.4-49); HEMOGLOBIN 10.5 GM/dL (11.7-16.9); MCH 24.6 pg (25.7-33.7); MEAN CELL VOLUME 79.2 fl (80-96); MEAN PLT VOLUME 7.8 fl (7.5-11.1); PLATELET COUNT 202 K/MM3 (134-434); RBC 4.26 M/mm3 (4.00-5.60); RDW 22.6 % (11.9-15.9); WHITE BLOOD COUNT 5.6 K/mm3 (4.0-10.0)
[2018-08-21 09:46] LABS: ALBUMIN 2.6 g/dl (3.4-5.0); ALK PHOS 61 U/L (45-117); ANION GAP 5 MMOL/L (8-16); BILIRUBIN,TOTAL 0.3 mg/dL (0.2-1); BLOOD UREA NITROGEN 27 mg/dL (7-18); CALCIUM 7.9 mg/dL (8.5-10.1); CHLORIDE 104 mmol/L (98-107); CO2 36 mmol/L (21-32); GLUCOSE,RANDOM 74 mg/dL (74-106); POTASSIUM 4.8 mmol/L (3.5-5.1); SGOT/AST 12 U/L (15-37); SGPT/ALT 16 U/L (13-61); SODIUM 144 mmol/L (136-145)
[2018-08-21] MEDS ORDERED: PT OWN MED DRAWER 7, Y5N ONE (09:48)
[2018-08-21] MEDS: TIOTROPIUM BROMIDE 2.5 MCG (SPIRIVA) RESPIMAT INHALER IH SCH (09:56)
[2018-08-21] MEDS: BUDESONIDE/FORMETEROL FUMARATE 160/4.5 mcg INHALER IH SCH ×2 (09:56→22:19)
[2018-08-21] MEDS: MULTIVITAMINS (DAILY MVI) TABLET (FP) PO SCH (09:57)
[2018-08-21] MEDS: TORSEMIDE 10 MG TABLET PO SCH (09:57)
[2018-08-21] MEDS: LIDOCAINE 5% TOPICAL PATCH TP SCH (09:57)
[2018-08-21] MEDS: HEPARIN NA (PORCINE) 5,000 UNITS/ML 1ML VIAL SQ SCH ×2 (09:57→22:21)
[2018-08-21] MEDS: ASPIRIN 81 MG CHEWABLE TABLETS PO SCH (09:57)
[2018-08-21] MEDS: CLOPIDOGREL BISULFATE 75 MG TABLET (FP) PO SCH (09:57)
[2018-08-21] MEDS: CITALOPRAM HYDROBROMIDE 20 MG TABLET (FP) PO SCH (09:57)
[2018-08-21] MEDS: MINERAL OIL/PET HY-PHL TOPICAL OINTMENT 454 GM JAR TP SCH ×2 (10:00→22:20)
[2018-08-21] MEDS: oxyCODONE HCL 5 MG TABLET PO PRN (10:34)
[2018-08-21] MEDS: ACETAMINOPHEN 325 MG TABLET (FP) PO PRN (10:34)
--- NOTE | 2018-08-21 10:56 | PN ---
Progress Note, Physician History of Present Illness: Awake, alert No c/o leg pain Afebrile Tolerating antibiotics - Current Medication List Current Medications: Active Medications Acetaminophen (Tylenol -) 650 mg PO Q6H PRN PRN Reason: PAIN LEVEL 1-5 Last Admin: 08/21/18 10:34 Dose: 650 mg Albuterol Sulfate (Ventolin 0.083% Nebulizer Soln -) 1 amp NEB Q6H PRN PRN Reason: SHORT OF BREATH/WHEEZING Last Admin: 08/20/18 12:15 Dose: 1 amp Aspirin (Asa -) 81 mg PO DAILY [facility] Last Admin: 08/21/18 09:57 Dose: 81 mg Atorvastatin Calcium (Lipitor -) 20 mg PO HS [facility] Last Admin: 08/20/18 21:34 Dose: 20 mg Budesonide/Formoterol Fumarate (Symbicort 160/4.5mcg -) 2 puff IH BID [facility] Last Admin: 08/21/18 09:56 Dose: 2 puff Citalopram Hydrobromide (Celexa -) 40 mg PO DAILY [facility] Last Admin: 08/21/18 09:57 Dose: 40 mg Clopidogrel Bisulfate (Plavix -) 75 mg PO DAILY [facility] Last Admin: 08/21/18 09:57 Dose: 75 mg Emollient Ointment (Aquaphor -) 1 applic TP BID [facility] Last Admin: 08/21/18 10:00 Dose: 1 applic Heparin Sodium (Porcine) (Heparin -) 5,000 unit SQ BID [facility] Last Admin: 08/21/18 09:57 Dose: 5,000 unit Cefepime HCl 1 gm/ Dextrose 100 mls @ 200 mls/hr IVPB Q12H [facility]; Protocol Last Admin: 08/21/18 05:47 Dose: 200 mls/hr Vancomycin HCl (Vancomycin (Pre-Docked)) 1,000 mg in 250 mls @ 200 mls/hr IVPB Q24H [facility]; Protocol Last Admin: 08/20/18 18:22 Dose: 200 mls/hr Insulin Aspart (Novolog Vial Sliding Scale -) 1 vial SQ ACHS [facility]; Protocol Last Admin: 08/21/18 06:05 Dose: Not Given Insulin Detemir (Levemir Vial) 10 units SQ 0700,2200 [facility] Last Admin: 08/21/18 06:06 Dose: 10 units Lidocaine (Lidoderm Patch -) 1 patch TP DAILY [facility] Last Admin: 08/21/18 09:57 Dose: 1 patch Miscellaneous (Lidoderm Patch Removal) 1 each MC DAILY@2200 [facility] Last Admin: 08/20/18 21:35 Dose: 1 each Multivitamins/Minerals/Vitamin C (Tab-A-Vit -) 1 tab PO DAILY [facility] Last Admin: 08/21/18 09:57 Dose: 1 tab Oxycodone HCl (Roxicodone -) 5 mg PO Q6H PRN PRN Reason: PAIN LEVEL 6-10 Last Admin: 08/21/18 10:34 Dose: 5 mg Tiotropium [place] (Spiriva Respimat) 2 puff IH DAILY [facility] Last Admin: 08/21/18 09:56 Dose: 2 puff Torsemide (Demadex -) 10 mg PO DAILY [facility] Last Admin: 08/21/18 09:57 Dose: 10 mg - Objective Vital Signs: Vital Signs Temperature 98 F 08/21/18 06:19 Pulse Rate 68 08/21/18 06:19 Respiratory Rate 20 08/21/18 06:19 Blood Pressure 133/66 08/21/18 06:19 O2 Sat by Pulse Oximetry (%) 97 08/21/18 04:22 Constitutional: Yes: No Distress Cardiovascular: Yes: Regular Rate and Rhythm, S1, S2 Respiratory: Yes: CTA Bilaterally Gastrointestinal: Yes: Normal Bowel Sounds, Soft. No: Tenderness Extremities: Yes: Other (decreased erythema/ swelling / weepage LE bilaterally) Labs: CBC, BMP 08/21/18 09:36 08/21/18 09:00 INR, PTT INR 1.10 (0.83-1.09) H 08/15/18 16:33 Assessment/Plan Recurrent LE Cellulitis- improved Hx + wound c/s vancomycin/ cefepime Local wound care
--- NOTE | 2018-08-21 11:43 | PN ---
Progress Note (short form) - Note Progress Note: Still with some left chest wall pain, but better. Denies cough or wheezing. Intake & Output 08/18/18 08/19/18 08/20/18 08/21/18 23:59 23:59 23:59 23:59 Intake Total 4408 961 0790 Output Total 500 600 Balance 488 054 3076 Weight 231 lb Last Vital Signs Temp Pulse Resp BP Pulse Ox 98.8 F 66 22 H 151/66 97 08/21/18 10:00 08/21/18 10:00 08/21/18 10:00 08/21/18 10:00 08/21/18 04:22 Active Medications Acetaminophen (Tylenol -) 650 mg PO Q6H PRN PRN Reason: PAIN LEVEL 1-5 Last Admin: 08/21/18 10:34 Dose: 650 mg Albuterol Sulfate (Ventolin 0.083% Nebulizer Soln -) 1 amp NEB Q6H PRN PRN Reason: SHORT OF BREATH/WHEEZING Last Admin: 08/20/18 12:15 Dose: 1 amp Aspirin (Asa -) 81 mg PO DAILY [facility] Last Admin: 08/21/18 09:57 Dose: 81 mg Atorvastatin Calcium (Lipitor -) 20 mg PO HS [facility] Last Admin: 08/20/18 21:34 Dose: 20 mg Budesonide/Formoterol Fumarate (Symbicort 160/4.5mcg -) 2 puff IH BID [facility] Last Admin: 08/21/18 09:56 Dose: 2 puff Citalopram Hydrobromide (Celexa -) 40 mg PO DAILY [facility] Last Admin: 08/21/18 09:57 Dose: 40 mg Clopidogrel Bisulfate (Plavix -) 75 mg PO DAILY [facility] Last Admin: 08/21/18 09:57 Dose: 75 mg Emollient Ointment (Aquaphor -) 1 applic TP BID [facility] Last Admin: 08/21/18 10:00 Dose: 1 applic Heparin Sodium (Porcine) (Heparin -) 5,000 unit SQ BID [facility] Last Admin: 08/21/18 09:57 Dose: 5,000 unit Cefepime HCl 1 gm/ Dextrose 100 mls @ 200 mls/hr IVPB Q12H [facility]; Protocol Last Admin: 08/21/18 05:47 Dose: 200 mls/hr Vancomycin HCl (Vancomycin (Pre-Docked)) 1,000 mg in 250 mls @ 200 mls/hr IVPB Q24H [facility]; Protocol Last Admin: 08/20/18 18:22 Dose: 200 mls/hr Insulin Aspart (Novolog Vial Sliding Scale -) 1 vial SQ ACHS [facility]; Protocol Last Admin: 08/21/18 06:05 Dose: Not Given Insulin Detemir (Levemir Vial) 10 units SQ 0700,2200 [facility] Last Admin: 08/21/18 06:06 Dose: 10 units Lidocaine (Lidoderm Patch -) 1 patch TP DAILY [facility] Last Admin: 08/21/18 09:57 Dose: 1 patch Miscellaneous (Lidoderm Patch Removal) 1 each MC DAILY@2200 [facility] Last Admin: 08/20/18 21:35 Dose: 1 each Multivitamins/Minerals/Vitamin C (Tab-A-Vit -) 1 tab PO DAILY [facility] Last Admin: 08/21/18 09:57 Dose: 1 tab Oxycodone HCl (Roxicodone -) 5 mg PO Q6H PRN PRN Reason: PAIN LEVEL 6-10 Last Admin: 08/21/18 10:34 Dose: 5 mg Tiotropium [place] (Spiriva Respimat) 2 puff IH DAILY [facility] Last Admin: 08/21/18 09:56 Dose: 2 puff Torsemide (Demadex -) 10 mg PO DAILY [facility] Last Admin: 08/21/18 09:57 Dose: 10 mg Gen: NAD at rest Heart: RRR Lung: decreased breath sounds at the bases Abd: soft, nontender Ext: + edema Laboratory Results - last 24 hr 08/20/18 08/20/18 08/20/18 12:22 17:08 21:37 WBC RBC Hgb Hct MCV MCH MCHC RDW Plt Count MPV Sodium Potassium Chloride Carbon Dioxide Anion Gap BUN Creatinine Creat Clearance w eGFR POC Glucometer 158 220 171 Random Glucose Calcium Total Bilirubin AST ALT Alkaline Phosphatase Total Protein Albumin 08/21/18 08/21/18 08/21/18 05:47 06:30 09:00 WBC RBC Hgb Hct MCV MCH MCHC RDW Plt Count MPV Sodium 144 Potassium 4.8 Chloride 104 Carbon Dioxide 36 H Anion Gap 5 L BUN 27 H Creatinine 1.0 Creat Clearance w eGFR > 60 POC Glucometer 142 Random Glucose 74 Calcium 7.9 L Total Bilirubin 0.3 AST 12 L ALT 16 Alkaline Phosphatase 61 Total Protein 6.0 L Albumin 2.6 L 08/21/18 09:36 WBC 5.6 RBC 4.26 Hgb 10.5 L Hct 33.8 L MCV 79.2 L MCH 24.6 L MCHC 31.0 L RDW 22.6 H Plt Count 202 MPV 7.8 Sodium Potassium Chloride Carbon Dioxide Anion Gap BUN Creatinine Creat Clearance w eGFR POC Glucometer Random Glucose Calcium Total Bilirubin AST ALT Alkaline Phosphatase Total Protein Albumin A/P Cellulitis COPD Chronic Hypoxic Respiratory Failure CAD HTN DM Hyperlipidemia CKD h/o CVA Smoker - lidoderm patch to chest - continue inhaled bronchodilators as needed - Symbicort BID, Spiriva daily - O2 to keep Spo2>90% - can defer systemic steroids at this time - antibiotics for cellulitis - wound care - DVT prophylaxis Dr Smalls
[2018-08-21] MEDS ORDERED: INSULIN (NOVOLOG) ASPART 100 UNITS/ML 10ML VIAL ONE (12:54)
--- NOTE | 2018-08-21 13:59 | PN ---
Progress Note, Physician History of Present Illness: Pt w/o SOB, CP, palpitations, abd pain. - Current Medication List Current Medications: Active Medications Acetaminophen (Tylenol -) 650 mg PO Q6H PRN PRN Reason: PAIN LEVEL 1-5 Last Admin: 08/21/18 10:34 Dose: 650 mg Albuterol Sulfate (Ventolin 0.083% Nebulizer Soln -) 1 amp NEB Q6H PRN PRN Reason: SHORT OF BREATH/WHEEZING Last Admin: 08/20/18 12:15 Dose: 1 amp Aspirin (Asa -) 81 mg PO DAILY [facility] Last Admin: 08/21/18 09:57 Dose: 81 mg Atorvastatin Calcium (Lipitor -) 20 mg PO HS [facility] Last Admin: 08/20/18 21:34 Dose: 20 mg Budesonide/Formoterol Fumarate (Symbicort 160/4.5mcg -) 2 puff IH BID [facility] Last Admin: 08/21/18 09:56 Dose: 2 puff Citalopram Hydrobromide (Celexa -) 40 mg PO DAILY [facility] Last Admin: 08/21/18 09:57 Dose: 40 mg Clopidogrel Bisulfate (Plavix -) 75 mg PO DAILY [facility] Last Admin: 08/21/18 09:57 Dose: 75 mg Emollient Ointment (Aquaphor -) 1 applic TP BID [facility] Last Admin: 08/21/18 10:00 Dose: 1 applic Heparin Sodium (Porcine) (Heparin -) 5,000 unit SQ BID [facility] Last Admin: 08/21/18 09:57 Dose: 5,000 unit Cefepime HCl 1 gm/ Dextrose 100 mls @ 200 mls/hr IVPB Q12H [facility]; Protocol Last Admin: 08/21/18 05:47 Dose: 200 mls/hr Vancomycin HCl (Vancomycin (Pre-Docked)) 1,000 mg in 250 mls @ 200 mls/hr IVPB Q24H [facility]; Protocol Last Admin: 08/20/18 18:22 Dose: 200 mls/hr Insulin Aspart (Novolog Vial Sliding Scale -) 1 vial SQ ACHS [facility]; Protocol Last Admin: 08/21/18 12:59 Dose: Not Given Insulin Detemir (Levemir Vial) 10 units SQ 0700,2200 [facility] Last Admin: 08/21/18 06:06 Dose: 10 units Lidocaine (Lidoderm Patch -) 1 patch TP DAILY [facility] Last Admin: 08/21/18 09:57 Dose: 1 patch Miscellaneous (Lidoderm Patch Removal) 1 each MC DAILY@2200 [facility] Last Admin: 08/20/18 21:35 Dose: 1 each Multivitamins/Minerals/Vitamin C (Tab-A-Vit -) 1 tab PO DAILY [facility] Last Admin: 08/21/18 09:57 Dose: 1 tab Nystatin/Triamcinolone Acetonide (Mycolog Ii Ointment -) 1 applic TP BID [facility] Oxycodone HCl (Roxicodone -) 5 mg PO Q6H PRN PRN Reason: PAIN LEVEL 6-10 Last Admin: 08/21/18 10:34 Dose: 5 mg Tiotropium [place] (Spiriva Respimat) 2 puff IH DAILY [facility] Last Admin: 08/21/18 09:56 Dose: 2 puff Torsemide (Demadex -) 10 mg PO DAILY [facility] Last Admin: 08/21/18 09:57 Dose: 10 mg - Objective Vital Signs: Vital Signs Temperature 98.8 F 08/21/18 10:00 Pulse Rate 66 08/21/18 10:00 Respiratory Rate 22 H 08/21/18 10:00 Blood Pressure 151/66 08/21/18 10:00 O2 Sat by Pulse Oximetry (%) 95 08/21/18 12:44 Constitutional: Yes: No Distress, Calm Cardiovascular: Yes: Regular Rate and Rhythm, S1, S2 Respiratory: Yes: Regular, CTA Bilaterally. No: Rales Gastrointestinal: Yes: Normal Bowel Sounds, Soft, Abdomen, Obese. No: Tenderness Extremities: Yes: Other (clean dressing) Edema: Yes Neurological: Yes: Alert, Oriented Labs: CBC, BMP 08/21/18 09:36 08/21/18 09:00 INR, PTT INR 1.10 (0.83-1.09) H 08/15/18 16:33 Problem List - Problems (1) Cellulitis of both lower extremities Code(s): L03.115 - CELLULITIS OF RIGHT LOWER LIMB; L03.116 - CELLULITIS OF LEFT LOWER LIMB (2) Fall Code(s): W19.XXXA - UNSPECIFIED FALL, INITIAL ENCOUNTER (3) CAD (coronary artery disease) Code(s): I25.10 - ATHSCL HEART DISEASE OF [place] CORONARY ARTERY W/O ANG PCTRS (4) CHF (congestive heart failure) Code(s): I50.9 - HEART FAILURE, UNSPECIFIED (5) CVA (cerebral vascular accident) Code(s): I63.9 - CEREBRAL INFARCTION, UNSPECIFIED (6) Diabetes mellitus Code(s): E11.9 - TYPE 2 DIABETES MELLITUS WITHOUT COMPLICATIONS (7) COPD (chronic obstructive pulmonary disease) Code(s): J44.9 - CHRONIC OBSTRUCTIVE PULMONARY DISEASE, UNSPECIFIED Qualifiers: COPD type: COPD with acute exacerbation Qualified Code(s): J44.1 - Chronic obstructive pulmonary disease with (acute) exacerbation (8) Hyperlipidemia Code(s): E78.5 - HYPERLIPIDEMIA, UNSPECIFIED (9) MARTIN treated with BiPAP Code(s): G47.33 - OBSTRUCTIVE SLEEP APNEA (ADULT) (PEDIATRIC) (10) PVD (peripheral vascular disease) Code(s): I73.9 - PERIPHERAL VASCULAR DISEASE, UNSPECIFIED (11) S/P femoral-popliteal bypass surgery Code(s): Z95.828 - PRESENCE OF OTHER VASCULAR IMPLANTS AND GRAFTS (12) Lymphadenopathy Code(s): R59.1 - GENERALIZED ENLARGED LYMPH NODES Assessment/Plan Cont IV abtx; to f/u with ID. To f/u with ID, Cardio, Pulmonary, Surgery. PT Local LE care Case was d/w pt's nurse.
[2018-08-21] MEDS: NYSTATIN/TRIAMCINOLONE TOPICAL OINTMENT 15 GM TUBE TP SCH ×2 (17:40→22:24)
[2018-08-21] MEDS: VANCOMYCIN 1 GRAM (PRE-DOCKED) 1,000 MG/250 ML BAG IVPB SCH (18:47)
[2018-08-21] MEDS: ALBUTEROL SO4 0.083% IH SOL 2.5 MG/3 ML VIAL.NEB. NEB PRN (20:36)
[2018-08-21] MEDS: LIDOCAINE PATCH REMOVAL MC SCH (22:23)
[2018-08-21] MEDS: ATORVASTATIN CA 20 MG TABLET (FP) PO SCH (22:23)
[2018-08-22] MEDS: oxyCODONE HCL 5 MG TABLET PO PRN (03:03)
[2018-08-22] MEDS ORDERED: CEFEPIME HCL 1 GM VIAL (RESTRICTED TO ID) ONE ×2 (05:36→17:46)
[2018-08-22] MEDS ORDERED: DEXTROSE 5%-WATER 100 ML IVPB ONE ×2 (05:36→17:46)
[2018-08-22] MEDS: CEFEPIME 1 GM in DEXTROSE 5%-WATER 100 ML IVPB SCH ×2 (05:39→17:52)
[2018-08-22] MEDS: INSULIN (LEVEMIR) 100 UNITS/ML UNITS SQ SCH ×2 (07:02→22:47)
[2018-08-22] MEDS: INSULIN SLIDING SCALE (NOVOLOG) 1 VIAL SQ SCH ×4 (07:03→22:48)
--- NOTE | 2018-08-22 11:43 | PN ---
Progress Note, Physician History of Present Illness: Pt w/o CP, palpitations, abd pain. Pt w/o SOB now (on BIPAP) but earlier he started coughing and felt SOB. - Current Medication List Current Medications: Active Medications Acetaminophen (Tylenol -) 650 mg PO Q6H PRN PRN Reason: PAIN LEVEL 1-5 Last Admin: 08/21/18 10:34 Dose: 650 mg Albuterol Sulfate (Ventolin 0.083% Nebulizer Soln -) 1 amp NEB Q6H PRN PRN Reason: SHORT OF BREATH/WHEEZING Last Admin: 08/21/18 20:36 Dose: 1 amp Aspirin (Asa -) 81 mg PO DAILY [facility] Last Admin: 08/21/18 09:57 Dose: 81 mg Atorvastatin Calcium (Lipitor -) 20 mg PO HS [facility] Last Admin: 08/21/18 22:23 Dose: 20 mg Budesonide/Formoterol Fumarate (Symbicort 160/4.5mcg -) 2 puff IH BID [facility] Last Admin: 08/21/18 22:19 Dose: 2 puff Citalopram Hydrobromide (Celexa -) 40 mg PO DAILY [facility] Last Admin: 08/21/18 09:57 Dose: 40 mg Clopidogrel Bisulfate (Plavix -) 75 mg PO DAILY [facility] Last Admin: 08/21/18 09:57 Dose: 75 mg Emollient Ointment (Aquaphor -) 1 applic TP BID [facility] Last Admin: 08/21/18 22:20 Dose: 1 applic Heparin Sodium (Porcine) (Heparin -) 5,000 unit SQ BID [facility] Last Admin: 08/21/18 22:21 Dose: 5,000 unit Cefepime HCl 1 gm/ Dextrose 100 mls @ 200 mls/hr IVPB Q12H [facility]; Protocol Last Admin: 08/22/18 05:39 Dose: 200 mls/hr Vancomycin HCl (Vancomycin (Pre-Docked)) 1,000 mg in 250 mls @ 200 mls/hr IVPB Q24H [facility]; Protocol Last Admin: 08/21/18 18:47 Dose: 200 mls/hr Insulin Aspart (Novolog Vial Sliding Scale -) 1 vial SQ ACHS [facility]; Protocol Last Admin: 08/22/18 07:03 Dose: Not Given Insulin Detemir (Levemir Vial) 10 units SQ 0700,2200 [facility] Last Admin: 10/31/18 07:02 Dose: 10 units Lidocaine (Lidoderm Patch -) 1 patch TP DAILY [facility] Last Admin: 08/21/18 09:57 Dose: 1 patch Miscellaneous (Lidoderm Patch Removal) 1 each MC DAILY@2200 [facility] Last Admin: 08/21/18 22:23 Dose: Not Given Multivitamins/Minerals/Vitamin C (Tab-A-Vit -) 1 tab PO DAILY [facility] Last Admin: 08/21/18 09:57 Dose: 1 tab Nystatin/Triamcinolone Acetonide (Mycolog Ii Ointment -) 1 applic TP BID [facility] Last Admin: 08/21/18 22:24 Dose: 1 applic Oxycodone HCl (Roxicodone -) 5 mg PO Q6H PRN PRN Reason: PAIN LEVEL 6-10 Last Admin: 08/22/18 03:03 Dose: 5 mg Tiotropium [place] (Spiriva Respimat) 2 puff IH DAILY [facility] Last Admin: 08/21/18 09:56 Dose: 2 puff Torsemide (Demadex -) 10 mg PO DAILY [facility] Last Admin: 08/21/18 09:57 Dose: 10 mg - Objective Vital Signs: Vital Signs Temperature 98.5 F 08/22/18 06:19 Pulse Rate 60 08/22/18 06:19 Respiratory Rate 20 08/22/18 06:19 Blood Pressure 145/69 08/22/18 06:19 O2 Sat by Pulse Oximetry (%) 95 08/21/18 21:00 Constitutional: Yes: No Distress, Calm Cardiovascular: Yes: Regular Rate and Rhythm, S1, S2 Respiratory: Yes: Regular, CTA Bilaterally, Other (coarse BS but not rales; pt on BIPAP) Gastrointestinal: Yes: Normal Bowel Sounds, Soft, Abdomen, Obese. No: Tenderness Extremities: Yes: Other (Bilat legs clear dressing) Neurological: Yes: Alert, Oriented Labs: CBC, BMP 08/21/18 09:36 08/21/18 09:00 INR, PTT INR 1.10 (0.83-1.09) H 08/15/18 16:33 Problem List - Problems (1) Cellulitis of both lower extremities Code(s): L03.115 - CELLULITIS OF RIGHT LOWER LIMB; L03.116 - CELLULITIS OF LEFT LOWER LIMB (2) Fall Code(s): W19.XXXA - UNSPECIFIED FALL, INITIAL ENCOUNTER (3) CAD (coronary artery disease) Code(s): I25.10 - ATHSCL HEART DISEASE OF [place] CORONARY ARTERY W/O ANG PCTRS (4) CHF (congestive heart failure) Code(s): I50.9 - HEART FAILURE, UNSPECIFIED (5) CVA (cerebral vascular accident) Code(s): I63.9 - CEREBRAL INFARCTION, UNSPECIFIED (6) Diabetes mellitus Code(s): E11.9 - TYPE 2 DIABETES MELLITUS WITHOUT COMPLICATIONS (7) COPD (chronic obstructive pulmonary disease) Code(s): J44.9 - CHRONIC OBSTRUCTIVE PULMONARY DISEASE, UNSPECIFIED Qualifiers: COPD type: COPD with acute exacerbation Qualified Code(s): J44.1 - Chronic obstructive pulmonary disease with (acute) exacerbation (8) Hyperlipidemia Code(s): E78.5 - HYPERLIPIDEMIA, UNSPECIFIED (9) MARTIN treated with BiPAP Code(s): G47.33 - OBSTRUCTIVE SLEEP APNEA (ADULT) (PEDIATRIC) (10) PVD (peripheral vascular disease) Code(s): I73.9 - PERIPHERAL VASCULAR DISEASE, UNSPECIFIED (11) S/P femoral-popliteal bypass surgery Code(s): Z95.828 - PRESENCE OF OTHER VASCULAR IMPLANTS AND GRAFTS (12) Lymphadenopathy Code(s): R59.1 - GENERALIZED ENLARGED LYMPH NODES Assessment/Plan CXR to r/o vascular congestion vs infiltrates Cont IV abtx; to f/u with ID. To f/u with ID, Cardio, Pulmonary, Surgery. PT Local LE care Case was d/w pt's nurse.
[2018-08-22] MEDS: CLOPIDOGREL BISULFATE 75 MG TABLET (FP) PO SCH (11:49)
[2018-08-22] MEDS: MULTIVITAMINS (DAILY MVI) TABLET (FP) PO SCH (11:49)
[2018-08-22] MEDS: HEPARIN NA (PORCINE) 5,000 UNITS/ML 1ML VIAL SQ SCH ×2 (11:49→22:46)
[2018-08-22] MEDS: ASPIRIN 81 MG CHEWABLE TABLETS PO SCH (11:49)
[2018-08-22] MEDS: CITALOPRAM HYDROBROMIDE 20 MG TABLET (FP) PO SCH (11:49)
[2018-08-22] MEDS: MINERAL OIL/PET HY-PHL TOPICAL OINTMENT 454 GM JAR TP SCH ×2 (11:51→22:46)
[2018-08-22] MEDS: TORSEMIDE 10 MG TABLET PO SCH (11:51)
[2018-08-22] MEDS: TIOTROPIUM BROMIDE 2.5 MCG (SPIRIVA) RESPIMAT INHALER IH SCH (11:52)
[2018-08-22] MEDS: NYSTATIN/TRIAMCINOLONE TOPICAL OINTMENT 15 GM TUBE TP SCH ×2 (11:52→22:46)
[2018-08-22] MEDS: LIDOCAINE 5% TOPICAL PATCH TP SCH (11:52)
--- NOTE | 2018-08-22 12:57 | PN ---
Progress Note, Physician History of Present Illness: PULMONARY ALERT,SITTING UP IN BED,LESS DYSPNEIC ON NASAL O2 - Current Medication List Current Medications: Active Medications Acetaminophen (Tylenol -) 650 mg PO Q6H PRN PRN Reason: PAIN LEVEL 1-5 Last Admin: 08/21/18 10:34 Dose: 650 mg Albuterol Sulfate (Ventolin 0.083% Nebulizer Soln -) 1 amp NEB Q6H PRN PRN Reason: SHORT OF BREATH/WHEEZING Last Admin: 08/21/18 20:36 Dose: 1 amp Aspirin (Asa -) 81 mg PO DAILY [facility] Last Admin: 08/22/18 11:49 Dose: 81 mg Atorvastatin Calcium (Lipitor -) 20 mg PO HS [facility] Last Admin: 08/21/18 22:23 Dose: 20 mg Budesonide/Formoterol Fumarate (Symbicort 160/4.5mcg -) 2 puff IH BID [facility] Last Admin: 08/21/18 22:19 Dose: 2 puff Citalopram Hydrobromide (Celexa -) 40 mg PO DAILY [facility] Last Admin: 08/22/18 11:49 Dose: 40 mg Clopidogrel Bisulfate (Plavix -) 75 mg PO DAILY [facility] Last Admin: 08/22/18 11:49 Dose: 75 mg Emollient Ointment (Aquaphor -) 1 applic TP BID [facility] Last Admin: 08/22/18 11:51 Dose: 1 applic Heparin Sodium (Porcine) (Heparin -) 5,000 unit SQ BID [facility] Last Admin: 08/22/18 11:49 Dose: 5,000 unit Cefepime HCl 1 gm/ Dextrose 100 mls @ 200 mls/hr IVPB Q12H [facility]; Protocol Last Admin: 08/22/18 05:39 Dose: 200 mls/hr Vancomycin HCl (Vancomycin (Pre-Docked)) 1,000 mg in 250 mls @ 200 mls/hr IVPB Q24H [facility]; Protocol Last Admin: 08/21/18 18:47 Dose: 200 mls/hr Insulin Aspart (Novolog Vial Sliding Scale -) 1 vial SQ ACHS [facility]; Protocol Last Admin: 08/22/18 07:03 Dose: Not Given Insulin Detemir (Levemir Vial) 10 units SQ 0700,2200 [facility] Last Admin: 08/22/18 07:02 Dose: 10 units Lidocaine (Lidoderm Patch -) 1 patch TP DAILY [facility] Last Admin: 08/22/18 11:52 Dose: 1 patch Miscellaneous (Lidoderm Patch Removal) 1 each MC DAILY@2200 [facility] Last Admin: 08/21/18 22:23 Dose: Not Given Multivitamins/Minerals/Vitamin C (Tab-A-Vit -) 1 tab PO DAILY [facility] Last Admin: 08/22/18 11:49 Dose: 1 tab Nystatin/Triamcinolone Acetonide (Mycolog Ii Ointment -) 1 applic TP BID [facility] Last Admin: 08/22/18 11:52 Dose: 1 applic Oxycodone HCl (Roxicodone -) 5 mg PO Q6H PRN PRN Reason: PAIN LEVEL 6-10 Last Admin: 08/22/18 03:03 Dose: 5 mg Tiotropium [place] (Spiriva Respimat) 2 puff IH DAILY [facility] Last Admin: 08/22/18 11:52 Dose: 2 puff Torsemide (Demadex -) 10 mg PO DAILY [facility] Last Admin: 08/22/18 11:51 Dose: 10 mg - Objective Vital Signs: Vital Signs Temperature 98.5 F 08/22/18 06:19 Pulse Rate 60 08/22/18 06:19 Respiratory Rate 20 08/22/18 06:19 Blood Pressure 145/69 08/22/18 06:19 O2 Sat by Pulse Oximetry (%) 95 08/21/18 21:00 Constitutional: Yes: Well Nourished, Calm Eyes: Yes: WNL HENT: Yes: WNL Neck: Yes: WNL Cardiovascular: Yes: Regular Rate and Rhythm, S1, S2 Respiratory: Yes: Diminished Extremities: Yes: Other (WRAPPED) Edema: Yes Labs: CBC, BMP Problem List - Problems (1) Cellulitis of leg Code(s): L03.119 - CELLULITIS OF UNSPECIFIED PART OF LIMB Qualifiers: (2) Diabetes mellitus Code(s): E11.9 - TYPE 2 DIABETES MELLITUS WITHOUT COMPLICATIONS (3) S/P femoral-popliteal bypass surgery Code(s): Z95.828 - PRESENCE OF OTHER VASCULAR IMPLANTS AND GRAFTS (4) Acute on chronic respiratory failure with hypoxia and hypercapnia Code(s): J96.21 - ACUTE AND CHRONIC RESPIRATORY FAILURE WITH HYPOXIA; J96.22 - ACUTE AND CHRONIC RESPIRATORY FAILURE WITH HYPERCAPNIA (5) CHF (congestive heart failure) Code(s): I50.9 - HEART FAILURE, UNSPECIFIED (6) COPD with acute exacerbation Code(s): J44.1 - CHRONIC OBSTRUCTIVE PULMONARY DISEASE W (ACUTE) EXACERBATION (7) Chronic venous stasis dermatitis of both lower extremities Code(s): I83.11 - VARICOSE VEINS OF RIGHT LOWER EXTREMITY WITH INFLAMMATION; I83.12 - VARICOSE VEINS OF LEFT LOWER EXTREMITY WITH INFLAMMATION (8) HTN (hypertension) Code(s): I10 - ESSENTIAL (PRIMARY) HYPERTENSION (9) Obesity Code(s): E66.9 - OBESITY, UNSPECIFIED (10) PVD (peripheral vascular disease) Code(s): I73.9 - PERIPHERAL VASCULAR DISEASE, UNSPECIFIED Assessment/Plan A/P Cellulitis COPD Chronic Hypoxic Respiratory Failure CAD HTN DM Hyperlipidemia CKD h/o CVA Smoker - lidoderm patch to chest - continue inhaled bronchodilators as needed - Symbicort BID, Spiriva daily - O2 to keep Spo2>90% - antibiotics for cellulitis - wound care - DVT prophylaxis DR GREEN
[2018-08-22] MEDS: BUDESONIDE/FORMETEROL FUMARATE 160/4.5 mcg INHALER IH SCH ×2 (14:15→22:48)
--- NOTE | 2018-08-22 16:52 | PN ---
Progress Note (short form) - Note Progress Note: s: chronic mild sob unchanged, no cp palps dizzy o: Vital Signs Period Temp Pulse Resp BP Sys/Mullen Pulse Ox Last 24 Hr 98 F-98.5 F 60-67 18-20 128-145/61-98 95-96 Constitutional: Yes: No Distress, Calm Eyes: Yes: Conjunctiva Clear, Respiratory: Yes: scattered wheezes Gastrointestinal: Yes: Normal Bowel Sounds, Soft Cardiovascular: Yes: Regular Rate and Rhythm JVD: No Heart Sounds: Yes: S1, S2 Extremities: Yes: Erythema, Other (erythema bilateral feet and ankles with weeping from wounds) Edema: trace/1+ le edema bl Peripheral Pulses: 1+ Left Doralis Pedis, 1+ Right Dorsalis Pedis Integumentary: no jaundice diaphoresis aaox3 Current Medications Generic Name Dose Route Start Last Admin Trade Name Freq PRN Reason Stop Dose Admin Acetaminophen 650 mg 08/17/18 01:14 08/21/18 10:34 Tylenol - PO 650 mg Q6H PRN Administration PAIN LEVEL 1-5 Albuterol Sulfate 1 amp 08/17/18 11:06 08/21/18 20:36 Ventolin 0.083% Nebulizer Soln - NEB 1 amp Q6H PRN Administration SHORT OF BREATH/WHEEZING Aspirin 81 mg 08/16/18 10:00 08/22/18 11:49 Asa - PO 81 mg DAILY [facility] Administration Atorvastatin Calcium 20 mg 08/16/18 22:00 08/21/18 22:23 Lipitor - PO 20 mg HS [facility] Administration Budesonide/Formoterol Fumarate 2 puff 08/16/18 22:00 08/22/18 14:15 Symbicort 160/4.5mcg - IH 2 puff BID [facility] Administration Citalopram Hydrobromide 40 mg 08/16/18 10:00 08/22/18 11:49 Celexa - PO 40 mg DAILY [facility] Administration Clopidogrel Bisulfate 75 mg 08/16/18 10:00 08/22/18 11:49 Plavix - PO 75 mg DAILY [facility] Administration Emollient Ointment 1 applic 08/16/18 22:00 08/22/18 11:51 Aquaphor - TP 1 applic BID [facility] Administration Heparin Sodium (Porcine) 5,000 unit 08/16/18 10:00 08/22/18 11:49 Heparin - SQ 5,000 unit BID [facility] Administration Cefepime HCl 1 gm/ Dextrose 100 mls @ 200 mls/hr 08/16/18 18:00 08/22/18 05: 39 IVPB 200 mls/hr Q12H [facility] Administration Protocol Vancomycin HCl 1,000 mg in 250 mls @ 200 mls/hr 08/16/18 18:07 08/21/18 18:47 Vancomycin (Pre-Docked) IVPB 200 mls/hr Q24H [facility] Administration Protocol Insulin Aspart 1 vial 08/16/18 07:00 08/22/18 14:14 Novolog Vial Sliding Scale - SQ 2 units ACHS [facility] Administration Protocol Insulin Detemir 10 units 08/18/18 14:27 08/22/18 07:02 Levemir Vial SQ 10 units 0700,2200 [facility] Administration Lidocaine 1 patch 08/18/18 13:15 08/22/18 11:52 Lidoderm Patch - TP 1 patch DAILY [facility] Administration Miscellaneous 1 each 08/18/18 22:00 08/21/18 22:23 Lidoderm Patch Removal MC Not Given DAILY@2200 [facility] Multivitamins/Minerals/Vitamin C 1 tab 08/16/18 10:00 08/22/18 11:49 Tab-A-Vit - PO 1 tab DAILY [facility] Administration Nystatin/Triamcinolone Acetonide 1 applic 08/21/18 14:00 08/22/18 11:52 Mycolog Ii Ointment - TP 1 applic BID [facility] Administration Oxycodone HCl 5 mg 08/17/18 01:14 08/22/18 03:03 Roxicodone - PO 5 mg Q6H PRN Administration PAIN LEVEL 6-10 Tiotropium [place] 2 puff 08/16/18 15:45 08/22/18 11:52 Spiriva Respimat IH 2 puff DAILY [facility] Administration Torsemide 10 mg 08/16/18 10:00 08/22/18 11:51 Demadex - PO 10 mg DAILY [facility] Administration CBC, BMP 08/21/18 09:36 08/21/18 09:00 echo 12/2016: nl lv/rv, mild lae, mild mr, mild-mod tr, possible mild as, mild phtn exercise mibi 01/02: no ischemia at 80% mphr ct chest: no chf EKG: sinus, LBBB, mobitz 1 (similar to prior EKGs) a/p: 68M h/o CVA, HTN, HLD, COPD (on 3L O2), CKD, DM, TIA, chronic diastolic hf /venous insufficiency, 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 falls: -mechanical in nature, no signs of cardiac etiology -check ortho vs -PT eval Abnormal EKG, mobitz 1, LBBB: - chronic findings, has had prior event monitors showing mobitz 1 without significant pauses - avoid AV arsh blocking agents - trop neg, no signs acs COPD - seems stable presently chronic venous insuff/LE edema, recurrent cellulitis: - vasc surgery, Dr. Cordon/wound team consulted PAD: -prior h/o left fem-pop bypass, cont dapt, statin chronic diastolic CHF -echoes have been unremarkable or very TDS in past, most recent 12/2016 was unremarkable -cont home torsemide 10 qd htn: -stable, controlled hld: -cont statin h/o TIA (2003): -on ASA, statin for sec prevention, cont same
[2018-08-22] MEDS: VANCOMYCIN 1 GRAM (PRE-DOCKED) 1,000 MG/250 ML BAG IVPB SCH (17:52)
[2018-08-22] MEDS: ALBUTEROL SO4 0.083% IH SOL 2.5 MG/3 ML VIAL.NEB. NEB PRN (21:55)
[2018-08-22] MEDS: ATORVASTATIN CA 20 MG TABLET (FP) PO SCH (22:46)
[2018-08-22] MEDS: LIDOCAINE PATCH REMOVAL MC SCH (22:47)
[2018-08-23] MEDS ORDERED: DEXTROSE 5%-WATER 100 ML IVPB ONE ×2 (06:05→17:05)
[2018-08-23] MEDS ORDERED: CEFEPIME HCL 1 GM VIAL (RESTRICTED TO ID) ONE ×2 (06:05→17:05)
[2018-08-23] MEDS: CEFEPIME 1 GM in DEXTROSE 5%-WATER 100 ML IVPB SCH ×2 (06:13→17:12)
[2018-08-23] MEDS: INSULIN SLIDING SCALE (NOVOLOG) 1 VIAL SQ SCH ×4 (06:14→21:10)
[2018-08-23] MEDS: INSULIN (LEVEMIR) 100 UNITS/ML UNITS SQ SCH ×2 (07:02→21:08)
[2018-08-23] MEDS ORDERED: INSULIN (NOVOLOG) ASPART 100 UNITS/ML 10ML VIAL ONE ×2 (07:14→11:21)
[2018-08-23] MEDS ORDERED: PT OWN MED DRAWER 7, Y5N ONE ×4 (07:18→21:01)
--- NOTE | 2018-08-23 09:32 | PN ---
Progress Note (short form) - Note Progress Note: Neurology History of Present Illness 68 year old past medical history of CVA, CAD, HTN, HLD, COPD (3L O2), CKD, DM, chronic bilateral leg cellulitis comes to the ED after unwitnessed fall on day of admission. Patient on ASA and plavix. Denied loss of consciousness, head trauma, neck pain. The patient has had 3 falls reportedly in the past 1 week. 3 days prior the reportedly witnessed the patient walking without his walker and start to fall down while in the kitchen. She caught the patient before he fell to the ground. He was brought to the ER and CT head reviewed and discussed and though no acute changes, chronic R cerebellar and L basal ganglia infarct seen. These can contribute to gait instability. Also with cellulities and diabetes that may complicate patient's ambulation. CT L spine reviewed, stable compression fx of L1 noted, no interval change. No spinal stenosis or neural foraminal narrowing noted. No new neurologic complaints and stable over weekend. Patient denies back pain. Rib Xray with old injury. Continue tx for cellulitis, neurologically stable. Allergies/Adverse Reactions: Allergies Allergy/AdvReac Type Severity Reaction Status Date / Time amoxicillin trihydrate Allergy Unknown Verified 07/10/18 13:29 [From Augmentin] potassium clavulanate Allergy Unknown Verified 07/10/18 13:29 [From Augmentin] Active Medications Acetaminophen (Tylenol -) 650 mg PO Q6H PRN PRN Reason: PAIN LEVEL 1-5 Last Admin: 08/21/18 10:34 Dose: 650 mg Albuterol Sulfate (Ventolin 0.083% Nebulizer Soln -) 1 amp NEB Q6H PRN PRN Reason: SHORT OF BREATH/WHEEZING Last Admin: 08/22/18 21:55 Dose: 1 amp Aspirin (Asa -) 81 mg PO DAILY [facility] Last Admin: 08/22/18 11:49 Dose: 81 mg Atorvastatin Calcium (Lipitor -) 20 mg PO HS [facility] Last Admin: 08/22/18 22:46 Dose: 20 mg Budesonide/Formoterol Fumarate (Symbicort 160/4.5mcg -) 2 puff IH BID [facility] Last Admin: 08/22/18 22:48 Dose: 2 puff Citalopram Hydrobromide (Celexa -) 40 mg PO DAILY [facility] Last Admin: 08/22/18 11:49 Dose: 40 mg Clopidogrel Bisulfate (Plavix -) 75 mg PO DAILY [facility] Last Admin: 08/22/18 11:49 Dose: 75 mg Emollient Ointment (Aquaphor -) 1 applic TP BID [facility] Last Admin: 08/22/18 22:46 Dose: 1 applic Heparin Sodium (Porcine) (Heparin -) 5,000 unit SQ BID [facility] Last Admin: 08/22/18 22:46 Dose: 5,000 unit Cefepime HCl 1 gm/ Dextrose 100 mls @ 200 mls/hr IVPB Q12H [facility]; Protocol Last Admin: 08/23/18 06:13 Dose: 200 mls/hr Vancomycin HCl (Vancomycin (Pre-Docked)) 1,000 mg in 250 mls @ 200 mls/hr IVPB Q24H [facility]; Protocol Last Admin: 08/22/18 17:52 Dose: 200 mls/hr Insulin Aspart (Novolog Vial Sliding Scale -) 1 vial SQ ACHS [facility]; Protocol Last Admin: 08/23/18 06:14 Dose: Not Given Insulin Detemir (Levemir Vial) 10 units SQ 0700,2200 [facility] Last Admin: 08/23/18 07:02 Dose: Not Given Lidocaine (Lidoderm Patch -) 1 patch TP DAILY [facility] Last Admin: 08/22/18 11:52 Dose: 1 patch Miscellaneous (Lidoderm Patch Removal) 1 each MC DAILY@2200 [facility] Last Admin: 08/22/18 22:47 Dose: Not Given Multivitamins/Minerals/Vitamin C (Tab-A-Vit -) 1 tab PO DAILY [facility] Last Admin: 08/22/18 11:49 Dose: 1 tab Nystatin/Triamcinolone Acetonide (Mycolog Ii Ointment -) 1 applic TP BID [facility] Last Admin: 08/22/18 22:46 Dose: 1 applic Oxycodone HCl (Roxicodone -) 5 mg PO Q6H PRN PRN Reason: PAIN LEVEL 6-10 Last Admin: 08/22/18 03:03 Dose: 5 mg Tiotropium [place] (Spiriva Respimat) 2 puff IH DAILY [facility] Last Admin: 08/22/18 11:52 Dose: 2 puff Torsemide (Demadex -) 10 mg PO DAILY [facility] Last Admin: 08/22/18 11:51 Dose: 10 mg *Physical Exam Vital Signs Period Temp Pulse Resp BP Sys/Mullen Pulse Ox Last 24 Hr 97.8 F-99.5 F 62-78 18-20 124-145/65-98 96 Gen: Awake, alert, responds to questions Card: RRR, nml S1,S2 Resp: decreased breath sounds Abdomen: Soft, nontender, bowel sounds active Head atraumatic and normocephalic CN: PERRL, EOMI intact, no apparent facial droop, no abnormalities in facial sensation, palate elevates, uvula and tongue midline Motor: Full strength to confrontation in upper and lower extermities proximally and distally. Tone normal throughout Sensory: Decreased pinprick in distal lower extremities Reflexes: 1+ biceps, brachioradialis, patellar, achillies Coordination: Intact on [id number] testing Gait: Deferred CBCD WBC 5.6 K/mm3 (4.0-10.0) 08/21/18 09:36 RBC 4.26 M/mm3 (4.00-5.60) 08/21/18 09:36 Hgb 10.5 GM/dL (11.7-16.9) L 08/21/18 09:36 Hct 33.8 % (35.4-49) L 08/21/18 09:36 MCV 79.2 fl (80-96) L 08/21/18 09:36 MCHC 31.0 g/dl (32.0-35.9) L 08/21/18 09:36 RDW 22.6 % (11.9-15.9) H 08/21/18 09:36 Plt Count 202 K/MM3 (134-434) 08/21/18 09:36 MPV 7.8 fl (7.5-11.1) 08/21/18 09:36 CMP Sodium 144 mmol/L (136-145) 08/21/18 09:00 Potassium 4.8 mmol/L (3.5-5.1) 08/21/18 09:00 Chloride 104 mmol/L (98-107) 08/21/18 09:00 Carbon Dioxide 36 mmol/L (21-32) H 08/21/18 09:00 Anion Gap 5 MMOL/L (8-16) L 08/21/18 09:00 BUN 27 mg/dL (7-18) H 08/21/18 09:00 Creatinine 1.0 mg/dL (0.55-1.3) 08/21/18 09:00 Creat Clearance w eGFR > 60 (>60) 08/21/18 09:00 Random Glucose 74 mg/dL (74-106) 08/21/18 09:00 Calcium 7.9 mg/dL (8.5-10.1) L 08/21/18 09:00 Total Bilirubin 0.3 mg/dL (0.2-1) 08/21/18 09:00 AST 12 U/L (15-37) L 08/21/18 09:00 ALT 16 U/L (13-61) 08/21/18 09:00 Alkaline Phosphatase 61 U/L (45-117) 08/21/18 09:00 Total Protein 6.0 g/dl (6.4-8.2) L 08/21/18 09:00 Albumin 2.6 g/dl (3.4-5.0) L 08/21/18 09:00 CARDIAC ENZYMES Creatine Kinase 74 IU/L (26-308) 08/15/18 17:36 Troponin I < 0.02 ng/ml (0.00-0.05) 08/15/18 17:36 Medical Decision Making 68 year old past medical history of CVA, CAD, HTN, HLD, COPD (3L O2), CKD, DM, chronic bilateral leg cellulitis comes to the ED after unwitnessed fall on day of admission. Patient on ASA and plavix. Denied loss of consciousness, head trauma, neck pain. The patient has had 3 falls reportedly in the past 1 week. 3 days prior the reportedly witnessed the patient walking without his walker and start to fall down while in the kitchen. She caught the patient before he fell to the ground. He was brought to the ER and CT head reviewed and discussed and though no acute changes, chronic R cerebellar and L basal ganglia infarct seen. These can contribute to gait instability. Also with cellulities with diabetes that may complicate patient's ambulation. CT L spine reviewed, no acute changes, stable L1 compression fracture, unchanged from prior. Physical therapy recommended, gait training and ambulation. Would benefit from using assistive device. Treatment for underlying cellulitis ongoing. Monitor glucose, maintain normal range. On ASA and Plavix for prior CVA, continue statin, goal LDL < 70. Fall precautions, DVT ppx. Rib xray without new injuries, though does c/o discomfort. Neurologically stable. Continue mgmt of cellulitis.
--- NOTE | 2018-08-23 10:38 | PN ---
Progress Note (short form) - Note Progress Note: Resting in bed in NAD. Left chest wall pain improving. Denies cough or wheezing. Intake & Output 08/20/18 08/21/18 08/22/18 08/23/18 23:59 23:59 23:59 23:59 Intake Total 6623 535 8491 350 Output Total 900 Balance 1700 0 1300 350 Last Vital Signs Temp Pulse Resp BP Pulse Ox 97.8 F 62 20 124/65 96 08/23/18 06:48 08/23/18 06:48 08/23/18 06:48 08/23/18 06:48 08/22/18 10:15 Active Medications Acetaminophen (Tylenol -) 650 mg PO Q6H PRN PRN Reason: PAIN LEVEL 1-5 Last Admin: 08/21/18 10:34 Dose: 650 mg Albuterol Sulfate (Ventolin 0.083% Nebulizer Soln -) 1 amp NEB Q6H PRN PRN Reason: SHORT OF BREATH/WHEEZING Last Admin: 08/22/18 21:55 Dose: 1 amp Aspirin (Asa -) 81 mg PO DAILY [facility] Last Admin: 08/22/18 11:49 Dose: 81 mg Atorvastatin Calcium (Lipitor -) 20 mg PO HS [facility] Last Admin: 08/22/18 22:46 Dose: 20 mg Budesonide/Formoterol Fumarate (Symbicort 160/4.5mcg -) 2 puff IH BID [facility] Last Admin: 08/22/18 22:48 Dose: 2 puff Citalopram Hydrobromide (Celexa -) 40 mg PO DAILY [facility] Last Admin: 08/22/18 11:49 Dose: 40 mg Clopidogrel Bisulfate (Plavix -) 75 mg PO DAILY [facility] Last Admin: 08/22/18 11:49 Dose: 75 mg Emollient Ointment (Aquaphor -) 1 applic TP BID [facility] Last Admin: 08/22/18 22:46 Dose: 1 applic Heparin Sodium (Porcine) (Heparin -) 5,000 unit SQ BID [facility] Last Admin: 08/22/18 22:46 Dose: 5,000 unit Cefepime HCl 1 gm/ Dextrose 100 mls @ 200 mls/hr IVPB Q12H [facility]; Protocol Last Admin: 08/23/18 06:13 Dose: 200 mls/hr Vancomycin HCl (Vancomycin (Pre-Docked)) 1,000 mg in 250 mls @ 200 mls/hr IVPB Q24H [facility]; Protocol Last Admin: 08/22/18 17:52 Dose: 200 mls/hr Insulin Aspart (Novolog Vial Sliding Scale -) 1 vial SQ ACHS [facility]; Protocol Last Admin: 08/23/18 06:14 Dose: Not Given Insulin Detemir (Levemir Vial) 10 units SQ 0700,2200 [facility] Last Admin: 08/23/18 07:02 Dose: Not Given Lidocaine (Lidoderm Patch -) 1 patch TP DAILY [facility] Last Admin: 08/22/18 11:52 Dose: 1 patch Miscellaneous (Lidoderm Patch Removal) 1 each MC DAILY@2200 [facility] Last Admin: 08/22/18 22:47 Dose: Not Given Multivitamins/Minerals/Vitamin C (Tab-A-Vit -) 1 tab PO DAILY [facility] Last Admin: 08/22/18 11:49 Dose: 1 tab Nystatin/Triamcinolone Acetonide (Mycolog Ii Ointment -) 1 applic TP BID [facility] Last Admin: 08/22/18 22:46 Dose: 1 applic Oxycodone HCl (Roxicodone -) 5 mg PO Q6H PRN PRN Reason: PAIN LEVEL 6-10 Last Admin: 08/22/18 03:03 Dose: 5 mg Tiotropium [place] (Spiriva Respimat) 2 puff IH DAILY [facility] Last Admin: 08/22/18 11:52 Dose: 2 puff Torsemide (Demadex -) 10 mg PO DAILY [facility] Last Admin: 08/22/18 11:51 Dose: 10 mg Gen: NAD at rest Heart: RRR Lung: decreased breath sounds at the bases Abd: soft, nontender Ext: + edema Laboratory Results - last 24 hr 08/22/18 08/22/18 08/22/18 12:39 17:50 22:42 POC Glucometer 151 132 190 08/23/18 06:02 POC Glucometer 95 A/P Cellulitis COPD Chronic Hypoxic Respiratory Failure CAD HTN DM Hyperlipidemia CKD h/o CVA Smoker - lidoderm patch to chest - continue inhaled bronchodilators as needed - Symbicort BID, Spiriva daily - O2 to keep Spo2>90% - can defer systemic steroids at this time - antibiotics for cellulitis - wound care - DVT prophylaxis Dr Smalls
[2018-08-23] MEDS: MULTIVITAMINS (DAILY MVI) TABLET (FP) PO SCH (10:41)
[2018-08-23] MEDS: CITALOPRAM HYDROBROMIDE 20 MG TABLET (FP) PO SCH (10:41)
[2018-08-23] MEDS: CLOPIDOGREL BISULFATE 75 MG TABLET (FP) PO SCH (10:41)
[2018-08-23] MEDS: ASPIRIN 81 MG CHEWABLE TABLETS PO SCH (10:41)
[2018-08-23] MEDS: HEPARIN NA (PORCINE) 5,000 UNITS/ML 1ML VIAL SQ SCH ×2 (10:41→21:05)
[2018-08-23] MEDS: LIDOCAINE 5% TOPICAL PATCH TP SCH (10:42)
[2018-08-23] MEDS: TORSEMIDE 10 MG TABLET PO SCH (10:42)
[2018-08-23] MEDS: NYSTATIN/TRIAMCINOLONE TOPICAL OINTMENT 15 GM TUBE TP SCH ×2 (10:42→21:06)
[2018-08-23] MEDS: TIOTROPIUM BROMIDE 2.5 MCG (SPIRIVA) RESPIMAT INHALER IH SCH (10:43)
[2018-08-23] MEDS: BUDESONIDE/FORMETEROL FUMARATE 160/4.5 mcg INHALER IH SCH ×2 (10:43→21:06)
[2018-08-23] MEDS: MINERAL OIL/PET HY-PHL TOPICAL OINTMENT 454 GM JAR TP SCH ×2 (10:45→21:08)
--- NOTE | 2018-08-23 16:03 | PN ---
Progress Note, Physician - Current Medication List Current Medications: Active Medications Acetaminophen (Tylenol -) 650 mg PO Q6H PRN PRN Reason: PAIN LEVEL 1-5 Last Admin: 08/21/18 10:34 Dose: 650 mg Albuterol Sulfate (Ventolin 0.083% Nebulizer Soln -) 1 amp NEB Q6H PRN PRN Reason: SHORT OF BREATH/WHEEZING Last Admin: 08/22/18 21:55 Dose: 1 amp Aspirin (Asa -) 81 mg PO DAILY [facility] Last Admin: 08/23/18 10:41 Dose: 81 mg Atorvastatin Calcium (Lipitor -) 20 mg PO HS [facility] Last Admin: 08/22/18 22:46 Dose: 20 mg Budesonide/Formoterol Fumarate (Symbicort 160/4.5mcg -) 2 puff IH BID [facility] Last Admin: 08/23/18 10:43 Dose: 2 puff Citalopram Hydrobromide (Celexa -) 40 mg PO DAILY [facility] Last Admin: 08/23/18 10:41 Dose: 40 mg Clopidogrel Bisulfate (Plavix -) 75 mg PO DAILY [facility] Last Admin: 08/23/18 10:41 Dose: 75 mg Emollient Ointment (Aquaphor -) 1 applic TP BID [facility] Last Admin: 08/23/18 10:45 Dose: 1 applic Heparin Sodium (Porcine) (Heparin -) 5,000 unit SQ BID [facility] Last Admin: 08/23/18 10:41 Dose: 5,000 unit Cefepime HCl 1 gm/ Dextrose 100 mls @ 200 mls/hr IVPB Q12H [facility]; Protocol Last Admin: 08/23/18 06:13 Dose: 200 mls/hr Vancomycin HCl (Vancomycin (Pre-Docked)) 1,000 mg in 250 mls @ 200 mls/hr IVPB Q24H [facility]; Protocol Last Admin: 08/22/18 17:52 Dose: 200 mls/hr Insulin Aspart (Novolog Vial Sliding Scale -) 1 vial SQ ACHS [facility]; Protocol Last Admin: 08/23/18 11:37 Dose: 2 units Insulin Detemir (Levemir Vial) 10 units SQ 0700,2200 [facility] Last Admin: 08/23/18 07:02 Dose: Not Given Lidocaine (Lidoderm Patch -) 1 patch TP DAILY [facility] Last Admin: 08/23/18 10:42 Dose: 1 patch Miscellaneous (Lidoderm Patch Removal) 1 each MC DAILY@2200 [facility] Last Admin: 08/22/18 22:47 Dose: Not Given Multivitamins/Minerals/Vitamin C (Tab-A-Vit -) 1 tab PO DAILY [facility] Last Admin: 08/23/18 10:41 Dose: 1 tab Nystatin/Triamcinolone Acetonide (Mycolog Ii Ointment -) 1 applic TP BID [facility] Last Admin: 08/23/18 10:42 Dose: 1 applic Oxycodone HCl (Roxicodone -) 5 mg PO Q6H PRN PRN Reason: PAIN LEVEL 6-10 Last Admin: 08/22/18 03:03 Dose: 5 mg Tiotropium [place] (Spiriva Respimat) 2 puff IH DAILY [facility] Last Admin: 08/23/18 10:43 Dose: 2 puff Torsemide (Demadex -) 10 mg PO DAILY [facility] Last Admin: 08/23/18 10:42 Dose: 10 mg - Objective Vital Signs: Vital Signs Temperature 98.5 F 08/23/18 14:48 Pulse Rate 65 08/23/18 14:48 Respiratory Rate 20 08/23/18 14:48 Blood Pressure 143/65 08/23/18 14:48 O2 Sat by Pulse Oximetry (%) 96 08/22/18 10:15 Labs: CBC, BMP 08/21/18 09:36 08/21/18 09:00 INR, PTT INR 1.10 (0.83-1.09) H 08/15/18 16:33 Problem List - Problems (1) Cellulitis of both lower extremities Code(s): L03.115 - CELLULITIS OF RIGHT LOWER LIMB; L03.116 - CELLULITIS OF LEFT LOWER LIMB (2) Fall Code(s): W19.XXXA - UNSPECIFIED FALL, INITIAL ENCOUNTER (3) CAD (coronary artery disease) Code(s): I25.10 - ATHSCL HEART DISEASE OF [place] CORONARY ARTERY W/O ANG PCTRS (4) CHF (congestive heart failure) Code(s): I50.9 - HEART FAILURE, UNSPECIFIED (5) CVA (cerebral vascular accident) Code(s): I63.9 - CEREBRAL INFARCTION, UNSPECIFIED (6) Diabetes mellitus Code(s): E11.9 - TYPE 2 DIABETES MELLITUS WITHOUT COMPLICATIONS (7) COPD (chronic obstructive pulmonary disease) Code(s): J44.9 - CHRONIC OBSTRUCTIVE PULMONARY DISEASE, UNSPECIFIED Qualifiers: COPD type: COPD with acute exacerbation Qualified Code(s): J44.1 - Chronic obstructive pulmonary disease with (acute) exacerbation (8) Hyperlipidemia Code(s): E78.5 - HYPERLIPIDEMIA, UNSPECIFIED (9) MARTIN treated with BiPAP Code(s): G47.33 - OBSTRUCTIVE SLEEP APNEA (ADULT) (PEDIATRIC) (10) PVD (peripheral vascular disease) Code(s): I73.9 - PERIPHERAL VASCULAR DISEASE, UNSPECIFIED (11) S/P femoral-popliteal bypass surgery Code(s): Z95.828 - PRESENCE OF OTHER VASCULAR IMPLANTS AND GRAFTS (12) Lymphadenopathy Code(s): R59.1 - GENERALIZED ENLARGED LYMPH NODES
--- NOTE | 2018-08-23 16:09 | PN ---
Progress Note (short form) - Note Progress Note: s: stable sob no cp palps dizzy o: Vital Signs Period Temp Pulse Resp BP Sys/Mullen Pulse Ox Last 24 Hr 97.8 F-99 F 50-78 18-20 124-150/64-66 Constitutional: Yes: No Distress, Calm Eyes: Yes: Conjunctiva Clear, Respiratory: Yes: scattered wheezes Gastrointestinal: Yes: Normal Bowel Sounds, Soft Cardiovascular: Yes: Regular Rate and Rhythm JVD: No Heart Sounds: Yes: S1, S2 Extremities: Yes: Erythema, Other bilateral lower ext in bandages to knees Edema: trace/1+ le edema bl Peripheral Pulses: 1+ Left Doralis Pedis, 1+ Right Dorsalis Pedis Integumentary: no jaundice diaphoresis aaox3 Current Medications Acetaminophen (Tylenol -) 650 mg PO Q6H PRN PRN Reason: PAIN LEVEL 1-5 Last Admin: 08/21/18 10:34 Dose: 650 mg Albuterol Sulfate (Ventolin 0.083% Nebulizer Soln -) 1 amp NEB Q6H PRN PRN Reason: SHORT OF BREATH/WHEEZING Last Admin: 08/22/18 21:55 Dose: 1 amp Aspirin (Asa -) 81 mg PO DAILY [facility] Last Admin: 08/23/18 10:41 Dose: 81 mg Atorvastatin Calcium (Lipitor -) 20 mg PO HS [facility] Last Admin: 08/22/18 22:46 Dose: 20 mg Budesonide/Formoterol Fumarate (Symbicort 160/4.5mcg -) 2 puff IH BID [facility] Last Admin: 08/23/18 10:43 Dose: 2 puff Citalopram Hydrobromide (Celexa -) 40 mg PO DAILY [facility] Last Admin: 08/23/18 10:41 Dose: 40 mg Clopidogrel Bisulfate (Plavix -) 75 mg PO DAILY [facility] Last Admin: 08/23/18 10:41 Dose: 75 mg Emollient Ointment (Aquaphor -) 1 applic TP BID [facility] Last Admin: 08/23/18 10:45 Dose: 1 applic Heparin Sodium (Porcine) (Heparin -) 5,000 unit SQ BID [facility] Last Admin: 08/23/18 10:41 Dose: 5,000 unit Cefepime HCl 1 gm/ Dextrose 100 mls @ 200 mls/hr IVPB Q12H [facility]; Protocol Last Admin: 08/23/18 06:13 Dose: 200 mls/hr Vancomycin HCl (Vancomycin (Pre-Docked)) 1,000 mg in 250 mls @ 200 mls/hr IVPB Q24H [facility]; Protocol Last Admin: 08/22/18 17:52 Dose: 200 mls/hr Insulin Aspart (Novolog Vial Sliding Scale -) 1 vial SQ ACHS [facility]; Protocol Last Admin: 08/23/18 11:37 Dose: 2 units Insulin Detemir (Levemir Vial) 10 units SQ 0700,2200 [facility] Last Admin: 08/23/18 07:02 Dose: Not Given Lidocaine (Lidoderm Patch -) 1 patch TP DAILY [facility] Last Admin: 08/23/18 10:42 Dose: 1 patch Miscellaneous (Lidoderm Patch Removal) 1 each MC DAILY@2200 [facility] Last Admin: 08/22/18 22:47 Dose: Not Given Multivitamins/Minerals/Vitamin C (Tab-A-Vit -) 1 tab PO DAILY [facility] Last Admin: 08/23/18 10:41 Dose: 1 tab Nystatin/Triamcinolone Acetonide (Mycolog Ii Ointment -) 1 applic TP BID [facility] Last Admin: 08/23/18 10:42 Dose: 1 applic Oxycodone HCl (Roxicodone -) 5 mg PO Q6H PRN PRN Reason: PAIN LEVEL 6-10 Last Admin: 08/22/18 03:03 Dose: 5 mg Tiotropium [place] (Spiriva Respimat) 2 puff IH DAILY [facility] Last Admin: 08/23/18 10:43 Dose: 2 puff Torsemide (Demadex -) 10 mg PO DAILY [facility] Last Admin: 08/23/18 10:42 Dose: 10 mg echo 12/2016: nl lv/rv, mild lae, mild mr, mild-mod tr, possible mild as, mild phtn exercise mibi 01/02: no ischemia at 80% mphr ct chest: no chf EKG: sinus, LBBB, mobitz 1 (similar to prior EKGs) a/p: 68M h/o CVA, HTN, HLD, COPD (on 3L O2), CKD, DM, TIA, chronic diastolic hf /venous insufficiency, 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 falls: -mechanical in nature, no signs of cardiac etiology -check ortho vs -PT eval Abnormal EKG, mobitz 1, LBBB: - chronic findings, has had prior event monitors showing mobitz 1 without significant pauses - avoid AV arsh blocking agents - trop neg, no signs acs COPD - seems stable presently chronic venous insuff/LE edema, recurrent cellulitis: - vasc surgery, Dr. Cordon/wound team consulted PAD: -prior h/o left fem-pop bypass, cont dapt, statin chronic diastolic CHF -echoes have been unremarkable or very TDS in past, most recent 12/2016 was unremarkable -cont home torsemide 10 qd htn: -stable, controlled hld: -cont statin h/o TIA (2003): -on ASA, statin for sec prevention, cont same stable from cardiac perspective
[2018-08-23] MEDS: VANCOMYCIN 1 GRAM (PRE-DOCKED) 1,000 MG/250 ML BAG IVPB SCH (17:58)
[2018-08-23] MEDS: ATORVASTATIN CA 20 MG TABLET (FP) PO SCH (21:05)
[2018-08-23] MEDS: oxyCODONE HCL 5 MG TABLET PO PRN (21:05)
[2018-08-23] MEDS: LIDOCAINE PATCH REMOVAL MC SCH (21:18)
[2018-08-24] MEDS ORDERED: DEXTROSE 5%-WATER 100 ML IVPB ONE (05:51)
[2018-08-24] MEDS ORDERED: CEFEPIME HCL 1 GM VIAL (RESTRICTED TO ID) ONE (05:51)
[2018-08-24] MEDS: CEFEPIME 1 GM in DEXTROSE 5%-WATER 100 ML IVPB SCH (06:05)
[2018-08-24] MEDS: INSULIN SLIDING SCALE (NOVOLOG) 1 VIAL SQ SCH ×3 (06:10→18:15)
[2018-08-24] MEDS: INSULIN (LEVEMIR) 100 UNITS/ML UNITS SQ SCH (07:07)
--- NOTE | 2018-08-24 09:12 | PN ---
Progress Note (short form) - Note Progress Note: Neurology History of Present Illness 68 year old past medical history of CVA, CAD, HTN, HLD, COPD (3L O2), CKD, DM, chronic bilateral leg cellulitis comes to the ED after unwitnessed fall on day of admission. Patient on ASA and plavix. Denied loss of consciousness, head trauma, neck pain. The patient has had 3 falls reportedly in the past 1 week. 3 days prior the reportedly witnessed the patient walking without his walker and start to fall down while in the kitchen. She caught the patient before he fell to the ground. He was brought to the ER and CT head reviewed and discussed and though no acute changes, chronic R cerebellar and L basal ganglia infarct seen. These can contribute to gait instability. Also with cellulities and diabetes that may complicate patient's ambulation. CT L spine reviewed, stable compression fx of L1 noted, no interval change. No spinal stenosis or neural foraminal narrowing noted. No new neurologic complaints and stable over weekend. Patient denied back pain. Rib Xray with old injury. Continued tx for cellulitis, neurologically stable. Spoke with nurse, likely will need short term rehab once medically optimized. Allergies/Adverse Reactions: Allergies Allergy/AdvReac Type Severity Reaction Status Date / Time amoxicillin trihydrate Allergy Unknown Verified 07/10/18 13:29 [From Augmentin] potassium clavulanate Allergy Unknown Verified 07/10/18 13:29 [From Augmentin] Active Medications Acetaminophen (Tylenol -) 650 mg PO Q6H PRN PRN Reason: PAIN LEVEL 1-5 Last Admin: 08/21/18 10:34 Dose: 650 mg Albuterol Sulfate (Ventolin 0.083% Nebulizer Soln -) 1 amp NEB Q6H PRN PRN Reason: SHORT OF BREATH/WHEEZING Last Admin: 08/22/18 21:55 Dose: 1 amp Aspirin (Asa -) 81 mg PO DAILY [facility] Last Admin: 08/23/18 10:41 Dose: 81 mg Atorvastatin Calcium (Lipitor -) 20 mg PO HS [facility] Last Admin: 08/23/18 21:05 Dose: 20 mg Budesonide/Formoterol Fumarate (Symbicort 160/4.5mcg -) 2 puff IH BID [facility] Last Admin: 08/23/18 21:06 Dose: 2 puff Citalopram Hydrobromide (Celexa -) 40 mg PO DAILY [facility] Last Admin: 08/23/18 10:41 Dose: 40 mg Clopidogrel Bisulfate (Plavix -) 75 mg PO DAILY [facility] Last Admin: 08/23/18 10:41 Dose: 75 mg Emollient Ointment (Aquaphor -) 1 applic TP BID [facility] Last Admin: 08/23/18 21:08 Dose: Not Given Heparin Sodium (Porcine) (Heparin -) 5,000 unit SQ BID [facility] Last Admin: 08/23/18 21:05 Dose: 5,000 unit Cefepime HCl 1 gm/ Dextrose 100 mls @ 200 mls/hr IVPB Q12H [facility]; Protocol Last Admin: 08/24/18 06:05 Dose: 200 mls/hr Vancomycin HCl (Vancomycin (Pre-Docked)) 1,000 mg in 250 mls @ 200 mls/hr IVPB Q24H [facility]; Protocol Last Admin: 08/23/18 17:58 Dose: 200 mls/hr Insulin Aspart (Novolog Vial Sliding Scale -) 1 vial SQ ACHS [facility]; Protocol Last Admin: 08/24/18 06:10 Dose: Not Given Insulin Detemir (Levemir Vial) 10 units SQ 0700,2200 [facility] Last Admin: 08/24/18 07:07 Dose: 10 units Lidocaine (Lidoderm Patch -) 1 patch TP DAILY [facility] Last Admin: 08/23/18 10:42 Dose: 1 patch Miscellaneous (Lidoderm Patch Removal) 1 each MC DAILY@2200 [facility] Last Admin: 08/23/18 21:18 Dose: Not Given Multivitamins/Minerals/Vitamin C (Tab-A-Vit -) 1 tab PO DAILY [facility] Last Admin: 08/23/18 10:41 Dose: 1 tab Nystatin/Triamcinolone Acetonide (Mycolog Ii Ointment -) 1 applic TP BID [facility] Last Admin: 08/23/18 21:06 Dose: 1 applic Oxycodone HCl (Roxicodone -) 5 mg PO Q6H PRN PRN Reason: PAIN LEVEL 6-10 Last Admin: 08/23/18 21:05 Dose: 5 mg Tiotropium [place] (Spiriva Respimat) 2 puff IH DAILY [facility] Last Admin: 08/23/18 10:43 Dose: 2 puff Torsemide (Demadex -) 10 mg PO DAILY [facility] Last Admin: 11/01/18 10:42 Dose: 10 mg *Physical Exam Vital Signs Period Temp Pulse Resp BP Sys/Mullen Pulse Ox Last 24 Hr 98.2 F-98.5 F 50-88 18-20 139-150/62-65 95-98 Gen: Awake, alert, responds to questions Card: RRR, nml S1,S2 Resp: decreased breath sounds Abdomen: Soft, nontender, bowel sounds active Head atraumatic and normocephalic CN: PERRL, EOMI intact, no apparent facial droop, no abnormalities in facial sensation, palate elevates, uvula and tongue midline Motor: Full strength to confrontation in upper and lower extermities proximally and distally. Tone normal throughout Sensory: Decreased pinprick in distal lower extremities Reflexes: 1+ biceps, brachioradialis, patellar, achillies Coordination: Intact on hesfkf-[id number]-cenyzp testing Gait: Deferred CBCD WBC 5.6 K/mm3 (4.0-10.0) 08/21/18 09:36 RBC 4.26 M/mm3 (4.00-5.60) 08/21/18 09:36 Hgb 10.5 GM/dL (11.7-16.9) L 08/21/18 09:36 Hct 33.8 % (35.4-49) L 08/21/18 09:36 MCV 79.2 fl (80-96) L 08/21/18 09:36 MCHC 31.0 g/dl (32.0-35.9) L 08/21/18 09:36 RDW 22.6 % (11.9-15.9) H 08/21/18 09:36 Plt Count 202 K/MM3 (134-434) 08/21/18 09:36 MPV 7.8 fl (7.5-11.1) 08/21/18 09:36 CMP Sodium 144 mmol/L (136-145) 08/21/18 09:00 Potassium 4.8 mmol/L (3.5-5.1) 08/21/18 09:00 Chloride 104 mmol/L (98-107) 08/21/18 09:00 Carbon Dioxide 36 mmol/L (21-32) H 08/21/18 09:00 Anion Gap 5 MMOL/L (8-16) L 08/21/18 09:00 BUN 27 mg/dL (7-18) H 08/21/18 09:00 Creatinine 1.0 mg/dL (0.55-1.3) 08/21/18 09:00 Creat Clearance w eGFR > 60 (>60) 08/21/18 09:00 Random Glucose 74 mg/dL (74-106) 08/21/18 09:00 Calcium 7.9 mg/dL (8.5-10.1) L 08/21/18 09:00 Total Bilirubin 0.3 mg/dL (0.2-1) 08/21/18 09:00 AST 12 U/L (15-37) L 08/21/18 09:00 ALT 16 U/L (13-61) 08/21/18 09:00 Alkaline Phosphatase 61 U/L (45-117) 08/21/18 09:00 Total Protein 6.0 g/dl (6.4-8.2) L 08/21/18 09:00 Albumin 2.6 g/dl (3.4-5.0) L 08/21/18 09:00 CARDIAC ENZYMES Creatine Kinase 74 IU/L (26-308) 08/15/18 17:36 Troponin I < 0.02 ng/ml (0.00-0.05) 08/15/18 17:36 Medical Decision Making 68 year old past medical history of CVA, CAD, HTN, HLD, COPD (3L O2), CKD, DM, chronic bilateral leg cellulitis comes to the ED after unwitnessed fall on day of admission. Patient on ASA and plavix. Denied loss of consciousness, head trauma, neck pain. The patient has had 3 falls reportedly in the past 1 week. 3 days prior the reportedly witnessed the patient walking without his walker and start to fall down while in the kitchen. She caught the patient before he fell to the ground. He was brought to the ER and CT head reviewed and discussed and though no acute changes, chronic R cerebellar and L basal ganglia infarct seen. These can contribute to gait instability. Also with cellulities with diabetes that may complicate patient's ambulation. CT L spine reviewed, no acute changes, stable L1 compression fracture, unchanged from prior. Physical therapy recommended, gait training and ambulation. Would benefit from short term rehab after medical optimization and treatment. Treatment for underlying cellulitis ongoing. Monitor glucose, maintain normal range. On ASA and Plavix for prior CVA, continue statin, goal LDL < 70. Fall precautions, DVT ppx. Rib xray without new injuries, though does c/o discomfort. Neurologically stable.
[2018-08-24] MEDS ORDERED: PT OWN MED DRAWER 7, Y5N ONE (09:22)
[2018-08-24] MEDS: CITALOPRAM HYDROBROMIDE 20 MG TABLET (FP) PO SCH (09:32)
[2018-08-24] MEDS: oxyCODONE HCL 5 MG TABLET PO PRN (09:32)
[2018-08-24] MEDS: MULTIVITAMINS (DAILY MVI) TABLET (FP) PO SCH (09:32)
[2018-08-24] MEDS: ASPIRIN 81 MG CHEWABLE TABLETS PO SCH (09:32)
[2018-08-24] MEDS: CLOPIDOGREL BISULFATE 75 MG TABLET (FP) PO SCH (09:32)
[2018-08-24] MEDS: ACETAMINOPHEN 325 MG TABLET (FP) PO PRN (09:33)
[2018-08-24] MEDS: HEPARIN NA (PORCINE) 5,000 UNITS/ML 1ML VIAL SQ SCH (09:34)
[2018-08-24] MEDS: LIDOCAINE 5% TOPICAL PATCH TP SCH (09:34)
[2018-08-24] MEDS: TORSEMIDE 10 MG TABLET PO SCH (09:34)
[2018-08-24] MEDS: NYSTATIN/TRIAMCINOLONE TOPICAL OINTMENT 15 GM TUBE TP SCH (09:35)
[2018-08-24] MEDS: BUDESONIDE/FORMETEROL FUMARATE 160/4.5 mcg INHALER IH SCH (09:36)
[2018-08-24] MEDS: TIOTROPIUM BROMIDE 2.5 MCG (SPIRIVA) RESPIMAT INHALER IH SCH (09:36)
[2018-08-24] MEDS: MINERAL OIL/PET HY-PHL TOPICAL OINTMENT 454 GM JAR TP SCH (09:38)
--- NOTE | 2018-08-24 10:59 | PN ---
Progress Note, Physician History of Present Illness: Pt w/o cough, SOB, CP, palpitations, abd pain. - Current Medication List Current Medications: Active Medications Acetaminophen (Tylenol -) 650 mg PO Q6H PRN PRN Reason: PAIN LEVEL 1-5 Last Admin: 08/24/18 09:33 Dose: 650 mg Albuterol Sulfate (Ventolin 0.083% Nebulizer Soln -) 1 amp NEB Q6H PRN PRN Reason: SHORT OF BREATH/WHEEZING Last Admin: 08/22/18 21:55 Dose: 1 amp Aspirin (Asa -) 81 mg PO DAILY [facility] Last Admin: 08/24/18 09:32 Dose: 81 mg Atorvastatin Calcium (Lipitor -) 20 mg PO HS [facility] Last Admin: 08/23/18 21:05 Dose: 20 mg Budesonide/Formoterol Fumarate (Symbicort 160/4.5mcg -) 2 puff IH BID [facility] Last Admin: 08/24/18 09:36 Dose: 2 puff Citalopram Hydrobromide (Celexa -) 40 mg PO DAILY [facility] Last Admin: 08/24/18 09:32 Dose: 40 mg Clopidogrel Bisulfate (Plavix -) 75 mg PO DAILY [facility] Last Admin: 08/24/18 09:32 Dose: 75 mg Emollient Ointment (Aquaphor -) 1 applic TP BID [facility] Last Admin: 08/24/18 09:38 Dose: 1 applic Heparin Sodium (Porcine) (Heparin -) 5,000 unit SQ BID [facility] Last Admin: 08/24/18 09:34 Dose: 5,000 unit Cefepime HCl 1 gm/ Dextrose 100 mls @ 200 mls/hr IVPB Q12H [facility]; Protocol Last Admin: 08/24/18 06:05 Dose: 200 mls/hr Vancomycin HCl (Vancomycin (Pre-Docked)) 1,000 mg in 250 mls @ 200 mls/hr IVPB Q24H [facility]; Protocol Last Admin: 08/23/18 17:58 Dose: 200 mls/hr Insulin Aspart (Novolog Vial Sliding Scale -) 1 vial SQ ACHS [facility]; Protocol Last Admin: 08/24/18 06:10 Dose: Not Given Insulin Detemir (Levemir Vial) 10 units SQ 0700,2200 [facility] Last Admin: 08/24/18 07:07 Dose: 10 units Lidocaine (Lidoderm Patch -) 1 patch TP DAILY [facility] Last Admin: 08/24/18 09:34 Dose: 1 patch Miscellaneous (Lidoderm Patch Removal) 1 each MC DAILY@2200 [facility] Last Admin: 08/23/18 21:18 Dose: Not Given Multivitamins/Minerals/Vitamin C (Tab-A-Vit -) 1 tab PO DAILY [facility] Last Admin: 08/24/18 09:32 Dose: 1 tab Nystatin/Triamcinolone Acetonide (Mycolog Ii Ointment -) 1 applic TP BID [facility] Last Admin: 08/24/18 09:35 Dose: 1 applic Oxycodone HCl (Roxicodone -) 5 mg PO Q6H PRN PRN Reason: PAIN LEVEL 6-10 Last Admin: 08/24/18 09:32 Dose: 5 mg Tiotropium [place] (Spiriva Respimat) 2 puff IH DAILY [facility] Last Admin: 08/24/18 09:36 Dose: 2 puff Torsemide (Demadex -) 10 mg PO DAILY [facility] Last Admin: 08/24/18 09:34 Dose: 10 mg - Objective Vital Signs: Vital Signs Temperature 98.2 F 08/24/18 06:21 Pulse Rate 56 L 08/24/18 06:21 Respiratory Rate 20 08/24/18 06:21 Blood Pressure 146/62 08/24/18 06:21 O2 Sat by Pulse Oximetry (%) 96 08/24/18 07:39 Constitutional: Yes: No Distress, Calm (sitting) Cardiovascular: Yes: Regular Rate and Rhythm, S1, S2 Respiratory: Yes: Regular, CTA Bilaterally. No: Rales Gastrointestinal: Yes: Normal Bowel Sounds, Soft, Abdomen, Obese. No: Tenderness Extremities: Yes: Other (clean dressing) Edema: Yes Neurological: Yes: Alert, Oriented Labs: CBC, BMP 08/21/18 09:36 08/21/18 09:00 INR, PTT INR 1.10 (0.83-1.09) H 08/15/18 16:33 Problem List - Problems (1) Cellulitis of both lower extremities Code(s): L03.115 - CELLULITIS OF RIGHT LOWER LIMB; L03.116 - CELLULITIS OF LEFT LOWER LIMB (2) Fall Code(s): W19.XXXA - UNSPECIFIED FALL, INITIAL ENCOUNTER (3) CAD (coronary artery disease) Code(s): I25.10 - ATHSCL HEART DISEASE OF [place] CORONARY ARTERY W/O ANG PCTRS (4) CHF (congestive heart failure) Code(s): I50.9 - HEART FAILURE, UNSPECIFIED (5) CVA (cerebral vascular accident) Code(s): I63.9 - CEREBRAL INFARCTION, UNSPECIFIED (6) Diabetes mellitus Code(s): E11.9 - TYPE 2 DIABETES MELLITUS WITHOUT COMPLICATIONS (7) COPD (chronic obstructive pulmonary disease) Code(s): J44.9 - CHRONIC OBSTRUCTIVE PULMONARY DISEASE, UNSPECIFIED Qualifiers: COPD type: COPD with acute exacerbation Qualified Code(s): J44.1 - Chronic obstructive pulmonary disease with (acute) exacerbation (8) Hyperlipidemia Code(s): E78.5 - HYPERLIPIDEMIA, UNSPECIFIED (9) MARTIN treated with BiPAP Code(s): G47.33 - OBSTRUCTIVE SLEEP APNEA (ADULT) (PEDIATRIC) (10) PVD (peripheral vascular disease) Code(s): I73.9 - PERIPHERAL VASCULAR DISEASE, UNSPECIFIED (11) S/P femoral-popliteal bypass surgery Code(s): Z95.828 - PRESENCE OF OTHER VASCULAR IMPLANTS AND GRAFTS (12) Lymphadenopathy Code(s): R59.1 - GENERALIZED ENLARGED LYMPH NODES Assessment/Plan Pt came to ER s/p unwitnessed fall, work up was negative for acute event ( +olf vertebral FX), noticed to have bilateral LE celullitis, started on IV abtx, improving slowly; to DC to Rehab when will be switched to PO abtx. Cont IV abtx; to f/u with ID; to receive Vanco today. To f/u with ID, Cardio, Pulmonary, Surgery. PT Local LE care Case was d/w pt's nurse. AM labs
--- NOTE | 2018-08-24 15:26 | PN ---
Progress Note (short form) - Note Progress Note: s: no sob cp palps dizzy o: Vital Signs Period Temp Pulse Resp BP Sys/Mullen Pulse Ox Last 24 Hr 98.2 F-98.6 F 56-69 20-22 139-166/62-84 92-98 Constitutional: Yes: No Distress, Calm Eyes: Yes: Conjunctiva Clear, Respiratory: Yes: scattered wheezes Gastrointestinal: Yes: Normal Bowel Sounds, Soft Cardiovascular: Yes: Regular Rate and Rhythm JVD: No Heart Sounds: Yes: S1, S2 Extremities: Yes: Erythema, Other bilateral lower ext in bandages to knees Edema: trace/1+ le edema bl Peripheral Pulses: 1+ Left Doralis Pedis, 1+ Right Dorsalis Pedis Integumentary: no jaundice diaphoresis aaox3 Current Medications Acetaminophen (Tylenol -) 650 mg PO Q6H PRN PRN Reason: PAIN LEVEL 1-5 Last Admin: 08/24/18 09:33 Dose: 650 mg Albuterol Sulfate (Ventolin 0.083% Nebulizer Soln -) 1 amp NEB Q6H PRN PRN Reason: SHORT OF BREATH/WHEEZING Last Admin: 08/22/18 21:55 Dose: 1 amp Aspirin (Asa -) 81 mg PO DAILY [facility] Last Admin: 08/24/18 09:32 Dose: 81 mg Atorvastatin Calcium (Lipitor -) 20 mg PO HS [facility] Last Admin: 08/23/18 21:05 Dose: 20 mg Budesonide/Formoterol Fumarate (Symbicort 160/4.5mcg -) 2 puff IH BID [facility] Last Admin: 08/24/18 09:36 Dose: 2 puff Citalopram Hydrobromide (Celexa -) 40 mg PO DAILY [facility] Last Admin: 08/24/18 09:32 Dose: 40 mg Clopidogrel Bisulfate (Plavix -) 75 mg PO DAILY [facility] Last Admin: 08/24/18 09:32 Dose: 75 mg Emollient Ointment (Aquaphor -) 1 applic TP BID [facility] Last Admin: 08/24/18 09:38 Dose: 1 applic Heparin Sodium (Porcine) (Heparin -) 5,000 unit SQ BID [facility] Last Admin: 08/24/18 09:34 Dose: 5,000 unit Cefepime HCl 1 gm/ Dextrose 100 mls @ 200 mls/hr IVPB Q12H [facility]; Protocol Last Admin: 08/24/18 06:05 Dose: 200 mls/hr Vancomycin HCl (Vancomycin (Pre-Docked)) 1,000 mg in 250 mls @ 200 mls/hr IVPB Q24H [facility]; Protocol Last Admin: 08/23/18 17:58 Dose: 200 mls/hr Insulin Aspart (Novolog Vial Sliding Scale -) 1 vial SQ ACHS [facility]; Protocol Last Admin: 08/24/18 12:38 Dose: 2 units Insulin Detemir (Levemir Vial) 10 units SQ 0700,2200 [facility] Last Admin: 08/24/18 07:07 Dose: 10 units Lidocaine (Lidoderm Patch -) 1 patch TP DAILY [facility] Last Admin: 08/24/18 09:34 Dose: 1 patch Miscellaneous (Lidoderm Patch Removal) 1 each MC DAILY@2200 [facility] Last Admin: 08/23/18 21:18 Dose: Not Given Multivitamins/Minerals/Vitamin C (Tab-A-Vit -) 1 tab PO DAILY [facility] Last Admin: 08/24/18 09:32 Dose: 1 tab Nystatin/Triamcinolone Acetonide (Mycolog Ii Ointment -) 1 applic TP BID [facility] Last Admin: 08/24/18 09:35 Dose: 1 applic Oxycodone HCl (Roxicodone -) 5 mg PO Q6H PRN PRN Reason: PAIN LEVEL 6-10 Last Admin: 08/24/18 09:32 Dose: 5 mg Tiotropium [place] (Spiriva Respimat) 2 puff IH DAILY [facility] Last Admin: 08/24/18 09:36 Dose: 2 puff Torsemide (Demadex -) 10 mg PO DAILY [facility] Last Admin: 08/24/18 09:34 Dose: 10 mg echo 12/2016: nl lv/rv, mild lae, mild mr, mild-mod tr, possible mild as, mild phtn exercise mibi 01/02: no ischemia at 80% mphr ct chest: no chf EKG: sinus, LBBB, mobitz 1 (similar to prior EKGs) a/p: 68M h/o CVA, HTN, HLD, COPD (on 3L O2), CKD, DM, TIA, chronic diastolic hf /venous insufficiency, 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 falls: -mechanical in nature, no signs of cardiac etiology -check ortho vs -PT eval Abnormal EKG, mobitz 1, LBBB: - chronic findings, has had prior event monitors showing mobitz 1 without significant pauses - avoid AV arsh blocking agents - trop neg, no signs acs COPD - seems stable presently chronic venous insuff/LE edema, recurrent cellulitis: - vasc surgery, Dr. Cordon/wound team consulted PAD: -prior h/o left fem-pop bypass, cont dapt, statin chronic diastolic CHF -echoes have been unremarkable or very TDS in past, most recent 12/2016 was unremarkable -cont home torsemide 10 qd, stable volume status htn: -stable, controlled hld: -cont statin h/o TIA (2003): -on ASA, statin for sec prevention, cont same stable from cardiac perspective
--- NOTE | 2018-08-24 16:13 | PN ---
Progress Note (short form) - Note Progress Note: PULMONARY vss/afebrile Heart: RRR Lung: distant breath sounds, no wheezes Abd: soft, nontender Ext: bilateral lower ext clifton wraps meds/notes/images/radiographs noted ASSESSMENT AND PLAN: Cellulitis COPD Chronic Hypoxic Respiratory Failure CAD HTN DM Hyperlipidemia CKD h/o CVA Smoker - continue inhaled bronchodilators as needed - Symbicort, Spiriva daily - O2 to keep Spo2>90% - antibiotics for cellulitis - wound care - DVT prophylaxis Ted BUTT MD
--- NOTE | 2018-08-24 16:28 | PN ---
Progress Note, Physician History of Present Illness: Awake, alert No c/o leg pain Afebrile - Current Medication List Current Medications: Active Medications Acetaminophen (Tylenol -) 650 mg PO Q6H PRN PRN Reason: PAIN LEVEL 1-5 Last Admin: 08/24/18 09:33 Dose: 650 mg Albuterol Sulfate (Ventolin 0.083% Nebulizer Soln -) 1 amp NEB Q6H PRN PRN Reason: SHORT OF BREATH/WHEEZING Last Admin: 08/22/18 21:55 Dose: 1 amp Aspirin (Asa -) 81 mg PO DAILY [facility] Last Admin: 08/24/18 09:32 Dose: 81 mg Atorvastatin Calcium (Lipitor -) 20 mg PO HS [facility] Last Admin: 08/23/18 21:05 Dose: 20 mg Budesonide/Formoterol Fumarate (Symbicort 160/4.5mcg -) 2 puff IH BID [facility] Last Admin: 08/24/18 09:36 Dose: 2 puff Citalopram Hydrobromide (Celexa -) 40 mg PO DAILY [facility] Last Admin: 08/24/18 09:32 Dose: 40 mg Clopidogrel Bisulfate (Plavix -) 75 mg PO DAILY [facility] Last Admin: 08/24/18 09:32 Dose: 75 mg Emollient Ointment (Aquaphor -) 1 applic TP BID [facility] Last Admin: 08/24/18 09:38 Dose: 1 applic Heparin Sodium (Porcine) (Heparin -) 5,000 unit SQ BID [facility] Last Admin: 08/24/18 09:34 Dose: 5,000 unit Insulin Aspart (Novolog Vial Sliding Scale -) 1 vial SQ [facility]; Protocol Last Admin: 08/24/18 12:38 Dose: 2 units Insulin Detemir (Levemir Vial) 10 units SQ 0700,2200 [facility] Last Admin: 08/24/18 07:07 Dose: 10 units Lidocaine (Lidoderm Patch -) 1 patch TP DAILY [facility] Last Admin: 08/24/18 09:34 Dose: 1 patch Miscellaneous (Lidoderm Patch Removal) 1 each MC DAILY@2200 [facility] Last Admin: 08/23/18 21:18 Dose: Not Given Multivitamins/Minerals/Vitamin C (Tab-A-Vit -) 1 tab PO DAILY [facility] Last Admin: 08/24/18 09:32 Dose: 1 tab Nystatin/Triamcinolone Acetonide (Mycolog Ii Ointment -) 1 applic TP BID [facility] Last Admin: 08/24/18 09:35 Dose: 1 applic Oxycodone HCl (Roxicodone -) 5 mg PO Q6H PRN PRN Reason: PAIN LEVEL 6-10 Last Admin: 08/24/18 09:32 Dose: 5 mg Tiotropium [place] (Spiriva Respimat) 2 puff IH DAILY [facility] Last Admin: 08/24/18 09:36 Dose: 2 puff Torsemide (Demadex -) 10 mg PO DAILY [facility] Last Admin: 08/24/18 09:34 Dose: 10 mg - Objective Vital Signs: Vital Signs Temperature 98.6 F 08/24/18 10:00 Pulse Rate 69 08/24/18 10:00 Respiratory Rate 22 H 08/24/18 10:00 Blood Pressure 166/84 08/24/18 10:00 O2 Sat by Pulse Oximetry (%) 92 L 08/24/18 09:00 Constitutional: Yes: No Distress Eyes: Yes: Conjunctiva Clear Cardiovascular: Yes: Regular Rate and Rhythm, S1, S2 Respiratory: Yes: CTA Bilaterally Gastrointestinal: Yes: Normal Bowel Sounds, Soft. No: Tenderness Extremities: Yes: Other (decreased sweling and erythema LE bilaterally) Labs: CBC, BMP 08/21/18 09:36 08/21/18 09:00 INR, PTT INR 1.10 (0.83-1.09) H 08/15/18 16:33 Assessment/Plan Recurrent LE Cellulitis- improved D/C vancomycin/ cefepime Substitute clindamycin 450mg po tid x 7d Local wound care
[2018-08-24] MEDS: ALBUTEROL SO4 0.083% IH SOL 2.5 MG/3 ML VIAL.NEB. NEB PRN (17:16)
[2018-08-24 18:58] VITALS: BP 114/49; PULSE 72; TEMP 98
[2018-08-24] MEDS ORDERED: CLINDAMYCIN HCL 150 MG CAPSULE (FP) PO SCH (22:00)
== END 2018-08-24 20:49 | DRG 603 ==
LOC: JER 14:42 → JERBED 21:23 → OBSVTOIN 08-16 10:09 → J8W 08-16 16:58
PROVIDERS: ADMIT Internal Medicine; ATTEND Internal Medicine
DX: L03.116 Cellulitis of left lower limb (principal); I25.110 Atherosclerotic heart disease of native coronary artery with unstable angina pectoris; L97.918 Non-pressure chronic ulcer of unspecified part of right lower leg with other specified severity; J96.10 Chronic respiratory failure, unspecified whether with hypoxia or hypercapnia; I13.0 Hypertensive heart and chronic kidney disease with heart failure and stage 1 through stage 4 chronic kidney disease, or unspecified chronic kidney disease; I50.32 Chronic diastolic (congestive) heart failure; L03.115 Cellulitis of right lower limb; J44.9 Chronic obstructive pulmonary disease, unspecified; R59.1 Generalized enlarged lymph nodes; E78.5 Hyperlipidemia, unspecified; G47.33 Obstructive sleep apnea (adult) (pediatric); E11.51 Type 2 diabetes mellitus with diabetic peripheral angiopathy without gangrene; I44.7 Left bundle-branch block, unspecified; M48.56XS Collapsed vertebra, not elsewhere classified, lumbar region, sequela of fracture; E11.622 Type 2 diabetes mellitus with other skin ulcer; I44.1 Atrioventricular block, second degree; E11.22 Type 2 diabetes mellitus with diabetic chronic kidney disease; N18.9 Chronic kidney disease, unspecified; Z86.73 Personal history of transient ischemic attack (TIA), and cerebral infarction without residual deficits; Z99.81 Dependence on supplemental oxygen; Z95.828 Presence of other vascular implants and grafts; W18.30XA Fall on same level, unspecified, initial encounter; Y92.098 Other place in other non-institutional residence as the place of occurrence of the external cause
CPT/HCPCS: 36415; 70450-TC; 71045-TC-FY; 71101-TC-FY; 71250-TC; 72125-TC; 72131-TC; 74176-TC; 80053; 81003; 82550; 82962; 83880; 84484; 85025; 85027; 85610; 85730; 87040; 87086; 93005; 93010; 93970-TC; 94640; 94660; 97116-GP; 97161-GP; 99285-25; G0378; J0131; J1644

== ENCOUNTER 2018-09-17 20:15 | Inpatient (IN) | payer OTHER ==
--- NOTE | 2018-09-17 20:44 | PDOC ---
History of Present Illness - General Stated Complaint: CELLULITIS Time Seen by Provider: 09/17/18 20:43 - History of Present Illness Initial Comments: 09/17/18 21:20 The patient is a 68 year old male with a history of HTN, HLD, DM, CAD, PVD, Chronic cellulitis who presents for evaluation of lower extremity wounds. The patient reports worsening lower extremity redness, drainage, and pain prompting his presentation to the ED for further evaluation. He notes that he follows with Dr. Cordon for his lower extremity wounds and notes that he has had long- standing issues with the infection to his lower extremities. He otherwise denies fevers, chills, SOB, chest pain, nausea, vomiting, abdominal pain, or changes with urination or bowel movements. Past History - Past Medical History Allergies/Adverse Reactions: Allergies Allergy/AdvReac Type Severity Reaction Status Date / Time amoxicillin trihydrate Allergy Unknown Verified 07/10/18 13:29 [From Augmentin] potassium clavulanate Allergy Unknown Verified 07/10/18 13:29 [From Augmentin] Home Medications: Ambulatory Orders Aspirin [ASA -] 81 mg PO DAILY 08/15/18 Atorvastatin Ca [Lipitor] 20 mg PO HS 08/15/18 Citalopram Hydrobromide [Citalopram HBr] 40 mg PO DAILY 08/15/18 Clopidogrel Bisulfate [Clopidogrel] 75 mg PO DAILY 08/15/18 Insulin (Levemir) [Levemir Vial] 14 unit SQ BID 08/15/18 Torsemide [Demadex -] 10 mg PO DAILY 08/15/18 Vit B12/Folic Acid/B6/Aa No.15 [Glycotrol Capsule] 1 each PO DAILY 08/15/18 Acetaminophen [Tylenol .Regular Strength -] 650 mg PO Q6H PRN tablet 08/24/18 Albuterol 0.083% Nebulizer Kala [Ventolin 0.083% Nebulizer Soln -] 1 amp NEB Q6H PRN amp 08/24/18 Budesonide/Formeterol Fumarate [SYMBICORT 160/4.5mcg -] 2 puff IH BID inhaler 08/24/18 Clindamycin [Cleocin -] 450 mg PO TID #21 capsule MDD 3 08/24/18 Heparin - 5,000 unit SQ BID vial 08/24/18 Insulin Sliding Scale [Novolog Vial Sliding Scale -] 1 vial SQ ACHS units 08/24 Lidocaine 5% Patch [Lidoderm -] 1 patch TP DAILY patch 08/24/18 Lidocaine Patch Removal [Lidoderm Patch Removal] 1 each MC DAILY@2200 each 12/10 Mineral Oil/Pet Hy-Phl [Aquaphor -] 1 applic TP BID jar 08/24/18 Nystatin/Triamcinolone Top Oin [Mycolog II -] 1 applic TP BID applic 08/24/18 Tiotropium [place] [Spiriva Respimat] 2 puff IH DAILY inhaler 08/24/18 oxyCODONE HCL [Roxicodone -] 5 mg PO Q6H PRN #40 tablet MDD 4 08/24/18 Anemia: No Cardiac Disorders: Yes (CAD, Left Fem-Pop Bypass) CVA: Yes (no deficit 5 years ago.) COPD: Yes CHF: No Dementia: No Diabetes: Yes GI Disorders: Yes Disorders: No HTN: Yes Hypercholesterolemia: Yes Liver Disease: No Seizures: No Thyroid Disease: No - Surgical History Abdominal Surgery: No Appendectomy: No Cardiac Surgery: Yes (LEFT FEM-POP BYPASS) Cholecystectomy: No Lung Surgery: No Neurologic Surgery: No Orthopedic Surgery: No - Immunization History Immunization Up to Date: No - Suicide/Smoking/Psychosocial Hx Smoking Status: Yes Smoking History: Never smoked Have you smoked in the past 12 months: Yes Number of Cigarettes Smoked Daily: 20 If you are a former smoker, when did you quit?: 6 months 'Breaking Loose' booklet given: 07/11/18 Hx Alcohol Use: No Drug/Substance Use Hx: No Substance Use Type: None Hx Substance Use Treatment: No Review of Systems - Review of Systems Comments:: 09/17/18 21:23 Constitutional: No fevers, chills, fatigue, malaise HEENT: No Rhinorrhea, nasal congestion, visual changes Cardiovascular: No chest pain, syncope, palpitations, lightheadedness Respiratory: No Cough, SOB, Hemoptysis, Gastrointestinal: No Abdominal pain, Nausea, Vomiting, Constipation, Diarrhea, Melena Genitourinary: No Dysuria, Frequency, Urgency, Hesitancy, Hematuria, Flank pain Musculoskeletal: No Myalgia, arthralgia Skin: Redness, Drainage, pain to the bilateral lower extremities. No rashes, itching, bruising, pallor Neurologic: No Headache, Dizziness, Numbness, Weakness, or Tingling Psychiatric: No Hallucinations. No SI or HI *Physical Exam - Physical Exam Comments: 09/17/18 21:24 General Appearance: Nourished. No Apparent Distress HEENT: No Pharyngeal Erythema, Tonsillar Exudate, Tonsillar Erythema Neck: No Cervical Lymphadenopathy Respiratory/Chest: Lungs Clear, Normal Breath Sounds. No Crackles, Rales, Rhonchi, Wheezing Cardiovascular: Regular Rhythm, Regular Rate. No Murmur, Gallops, Rubs Gastrointestinal/Abdominal: Normal Bowel Sounds, Soft. No Guarding, Rebound, Tenderness Musculoskeletal: No CVA Tenderness Extremity: Bilateral pitting edema with diffuse erythema and warmth and weeping drainage with soaked bandages. Normal Capillary Refill Integumentary: Normal Color, Dry, Warm Neurologic: Fully Oriented, Alert, Normal Mood/Affect, Normal Response, ED Treatment Course - LABORATORY CBC & Chemistry Diagram: 09/17/18 22:50 09/17/18 22:50 Medical Decision Making - Medical Decision Making 09/17/18 21:25 The patient is a 68 year old male with a history of HTN, HLD, DM, CAD, PVD, Chronic cellulitis who presents for evaluation of lower extremity wounds. Given the patient's history and physical exam, it is likely the patient's symptoms are due to worsening cellulitis. We will obtain a cbc, cmp, lactate, blood cultures, wound cultures to evaluate further. We will treat with vanc and cefepime and continue to monitor and reassess while here in the ED. He will likely require admission for further management. 09/18/18 01:39 CBC, cmp are unremarkable. We discussed the case with Dr. Valle who accepted the patient for admission. *DC/Admit/Observation/Transfer Diagnosis at time of Disposition: Cellulitis of leg Qualifiers: Laterality: unspecified laterality Qualified Code(s): L03.119 - Cellulitis of unspecified part of limb - Discharge Dispostion Condition at time of disposition: Stable Decision to Admit order: Yes - Referrals Referrals: Noemy Valle [Primary Care Provider] - - Patient Instructions - Post Discharge Activity
--- NOTE | 2018-09-17 21:46 | PDOC ---
Attending Attestation - Resident Resident Name: Vito Caballero - ED Attending Attestation I have performed the following: I have examined & evaluated the patient, The case was reviewed & discussed with the resident, I agree w/resident's findings & plan, Exceptions are as noted - Medical Decision Making 09/17/18 21:46 A portion of this note was documented by scribe services under my direction. I have reviewed the details of the note, within reason, and agree with the documentation with the following case summary and management plan written by me. Patient treated in the ED. Nursing notes are reviewed and incorporated into the medical decision-making. Vital signs reviewed. Peripheral IV access obtained by the nurse, laboratory studies are drawn and sent, reviewed and interpreted by myself. 68-year-old male with past medical history of stroke, coronary disease, hypertension, anemia, COPD on oxygen, COPD, diabetes, chronic bilateral leg cellulitis sent in from snf for worsening and weeping lower extremities. Patient was being checked up at the snf. Noted that his legs are weeping today. There is some slight increased pain and some increasing erythema to the patient's into the ER. No fevers or chills. Patient appears to have cellulitis of the lower extremities. We'll obtain labs including blood cultures. We'll initiate IV antibiotics. With the lower extremity weeping, there is no chest pain or shortness of breath. However, differential includes worsening acute renal failure or congestive heart failure. Admit. <Nadeem Chatman - Last Filed: 09/17/18 21:45> - HPI HPI: 09/17/18 21:59 The patient is a 68 year old male, with a significant past medical history of COPD, HTN, HLD, DM, CAD, PVD, Chronic cellulitis, who presents to the emergency department from [facility] with, weeping chronic lower extremity wounds. As per patient, his wounds are taken care of at his snf, however, he has noticed it become more erythematous with increasing amount of pain and drainage , prompting his visit to the ER. He denies any recent fevers, chills, headache or dizziness. He denies any recent nausea, vomit, diarrhea or constipation. He denies any recent chest pain or shortness of breath. He denies any recent dysuria, frequency, urgency or hematuria. Allergies: amoxicillin trihydrate and potassium clavulanate Surgical history: Fem-pop bypass. Social history: Former smoker, no past or present use of alcohol or recreational drugs. PCP: Liyah Gomez MD - Physicial Exam PE: 09/17/18 22:00 GENERAL: Awake, alert, and fully oriented, in no acute distress HEAD: No signs of trauma ENT:hearing grossly normal NECK: Normal ROM +EXTREMITIES: 2+ edema with diffuse erythema, weeping wounds, and mild tenderness. Wet soaked bandages. NEUROLOGICAL: Cranial nerves II through XII grossly intact. Normal speech <José Solorzano - Last Filed: 09/17/18 22:00> Attestations - Attestations 09/17/18 22:00 Documentation prepared by José Solorzano, acting as clinical specialist medical device for Nadeem Chatman MD. <José Solorzano - Last Filed: 09/17/18 22:00>
[2018-09-17] MEDS ORDERED: VANCOMYCIN 1,500 MG in DEXTROSE 5%-WATER - 500 ML IVPB ONE (22:19)
[2018-09-17] MEDS ORDERED: CEFEPIME HCL/D5W 1 GM/50 ML BAG IVPB ONE (22:21)
[2018-09-17 23:04] LABS: BASO % 1.2 % (0-2.0); EOS % 5.8 % (0-4.5); HEMATOCRIT 35.8 % (35.4-49); HEMOGLOBIN 11.5 GM/dL (11.7-16.9); LYMPH % 8.5 % (8-40); MCH 24.9 pg (25.7-33.7); MEAN CELL VOLUME 77.8 fl (80-96); MEAN PLT VOLUME 7.8 fl (7.5-11.1); MONO % 6.9 % (3.8-10.2); NEUT % 77.6 % (42.8-82.8); PLATELET COUNT 255 K/MM3 (134-434); RBC 4.61 M/mm3 (4.00-5.60); RDW 19.3 % (11.9-15.9); WHITE BLOOD COUNT 9.3 K/mm3 (4.0-10.0)
[2018-09-17] MEDS ORDERED: VANCOMYCIN 500 MG VIAL (RESTRICTED TO ID ONLY) ONE (23:09)
[2018-09-17] MEDS ORDERED: VANCOMYCIN 1 GRAM (PRE-DOCKED) 1,000 MG/250 ML BAG IVPB ONE (23:09)
[2018-09-17 23:45] LABS: ALBUMIN 2.7 g/dl (3.4-5.0); ALK PHOS 81 U/L (45-117); ANION GAP 7 MMOL/L (8-16); BILIRUBIN,TOTAL 0.3 mg/dL (0.2-1); BLOOD UREA NITROGEN 34 mg/dL (7-18); CALCIUM 8.2 mg/dL (8.5-10.1); CHLORIDE 108 mmol/L (98-107); CO2 27 mmol/L (21-32); CREATININE 1.5 mg/dL (0.55-1.3); GLUCOSE,RANDOM 106 mg/dL (74-106); POTASSIUM 5.1 mmol/L (3.5-5.1); SGOT/AST 20 U/L (15-37); SGPT/ALT 15 U/L (13-61); SODIUM 142 mmol/L (136-145); TOT PROT 6.6 g/dl (6.4-8.2)
[2018-09-18] MEDS ORDERED: CEFEPIME 1 GM/100 ML BAG IVPB ONE (00:03)
[2018-09-18] MEDS ORDERED: ALBUTEROL SO4 0.083% IH SOL 2.5 MG/3 ML VIAL.NEB. NEB PRN (00:46)
[2018-09-18] MEDS: SODIUM CHLORIDE 1,000 ML IV SCH ×2 (01:40→07:35)
[2018-09-18 05:05] VITALS: BMI 39.8
[2018-09-18] MEDS: INSULIN SLIDING SCALE (NOVOLOG) 1 VIAL SQ SCH ×4 (06:14→22:19)
[2018-09-18] MEDS: INSULIN (LEVEMIR) 100 UNITS/ML UNITS SQ SCH ×2 (06:37→16:01)
[2018-09-18] MEDS: oxyCODONE HCL 5 MG TABLET PO PRN ×2 (07:25→15:12)
--- NOTE | 2018-09-18 09:32 | PN ---
Progress Note (short form) - Note Progress Note: Surgery Consult: Pt known to the surgical service. He was seen on his last admission 08/11/2018 for cellulitis. The patient was sent to [facility] on 08/24/2018. He returns for lower extremity cellulitis, worsening pain and drainage. He denies any fevers/ chills. PMHX: HLD, DM, CAD, PVD, COPD, GEN: Alert Lower ext: warm to touch, bilateral scaly dry skin serous weepy dressing( kerlix removed) Skin with erythema b/l to mid calf and circumfrential. Left leg with 2x1cm ulcer to the posterior calf and small abrasion/blood covered to the anterior aguirre(1x1cm). Right leg with 2x2 cm to lateral posterior leg. CBC, BMP 09/17/18 22:50 09/17/18 22:50 A/P: 68 yo male with chronic venous stasis/dermatitis IV abx for cellulitis Lower ext wound care ordered and placed today on the patient, xeroform on open ulcers with silver alginate to weeping areas/kerlix and clifton wrap from toe to knee bilaterally. D/w with Dr. Cordon and he agrees with the above care plan
--- NOTE | 2018-09-18 09:38 | HP ---
Admitting History and Physical - Primary Care Physician PCP: Danny Valle - Admission Chief Complaint: Legs cellulitis History of Present Illness: Pt with significant PMHx/o COPD, O2 dependant, on BIPAP, DM, leg cellulitis ( hospitalized in the past several times for abtx treatment) sent from [place] for sleepiness and legs cellulitis, after failed abtx treatment. In ER pt's MS was found to be at his baseline. History Source: Patient Limitations to Obtaining History: No Limitations - Past Medical History [employer]: Yes: CVA (no deficit, 5 years ago) Cardiovascular: Yes: CAD, HTN, Hyperlipdemia Pulmonary: Yes: COPD (on CPAP at night), O2 Dependent, Other (Cronic respiratory failure, on BIPAP at home) Renal/: Yes: Renal Failure (chronic) Infectious Disease: Yes: Other (Bilat. 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 History of Recent Travel: No Home Medications - Allergies Allergies/Adverse Reactions: Allergies Allergy/AdvReac Type Severity Reaction Status Date / Time amoxicillin trihydrate Allergy Unknown Verified 07/10/18 13:29 [From Augmentin] potassium clavulanate Allergy Unknown Verified 07/10/18 13:29 [From Augmentin] - Home Medications Home Medications: Ambulatory Orders Aspirin [ASA -] 81 mg PO DAILY 08/15/18 Atorvastatin Ca [Lipitor] 20 mg PO HS 08/15/18 Citalopram Hydrobromide [Citalopram HBr] 40 mg PO DAILY 08/15/18 Clopidogrel Bisulfate [Clopidogrel] 75 mg PO DAILY 08/15/18 Insulin (Levemir) [Levemir Vial] 14 unit SQ BID 08/15/18 Torsemide [Demadex -] 10 mg PO DAILY 08/15/18 Vit B12/Folic Acid/B6/Aa No.15 [Glycotrol Capsule] 1 each PO DAILY 08/15/18 Acetaminophen [Tylenol .Regular Strength -] 650 mg PO Q6H PRN tablet 08/24/18 Albuterol 0.083% Nebulizer Kala [Ventolin 0.083% Nebulizer Soln -] 1 amp NEB Q6H PRN amp 08/24/18 Budesonide/Formeterol Fumarate [SYMBICORT 160/4.5mcg -] 2 puff IH BID inhaler 08/24/18 Clindamycin [Cleocin -] 450 mg PO TID #21 capsule MDD 3 08/24/18 Heparin - 5,000 unit SQ BID vial 08/24/18 Insulin Sliding Scale [Novolog Vial Sliding Scale -] 1 vial SQ ACHS units 08/24 Lidocaine 5% Patch [Lidoderm -] 1 patch TP DAILY patch 08/24/18 Lidocaine Patch Removal [Lidoderm Patch Removal] 1 each MC DAILY@2200 each 12/10 Mineral Oil/Pet Hy-Phl [Aquaphor -] 1 applic TP BID jar 08/24/18 Nystatin/Triamcinolone Top Oin [Mycolog II -] 1 applic TP BID applic 08/24/18 Tiotropium [place] [Spiriva Respimat] 2 puff IH DAILY inhaler 08/24/18 oxyCODONE HCL [Roxicodone -] 5 mg PO Q6H PRN #40 tablet MDD 4 08/24/18 Family Disease History - Family Disease History Family Disease History: Diabetes: Daughter Review of Systems - Review of Systems Constitutional: denies: Chills, Fever Eyes: denies: Blurred Vision, Double Vision HENT: denies: Ear Discharge, Ear Pain, Nasal Congestion, Throat Pain Neck: denies: Pain on Movement, Stiffness Respiratory: denies: Cough, SOB, Wheezing Gastrointestinal: denies: Abdominal Pain, Diarrhea, Vomiting Genitourinary: denies: Burning, Discharge Musculoskeletal: denies: Back Pain, Muscle Cramps Integumentary: reports: Bruising, Rash (in LE) Neurological: denies: Change in Speech, Numbness, Weakness Endocrine: denies: Excessive Sweating, Intolerance to Cold Hematology/Lymphatic: reports: Easily Bruised. denies: Excessive Bleeding Psychiatric: denies: Anxiety, Depression Physical Examination Vital Signs: Vital Signs Temperature 98.4 F 09/18/18 04:29 Pulse Rate 78 09/18/18 04:29 Respiratory Rate 20 09/18/18 04:29 Blood Pressure 118/68 09/18/18 04:29 O2 Sat by Pulse Oximetry (%) 94 L 09/18/18 08:13 Constitutional: Yes: No Distress, Calm Eyes: Yes: Conjunctiva Clear, PERRL HENT: Yes: Normocephalic. No: Epistaxis, Rhinnorhea, Thrush Neck: Yes: Trachea Midline. No: Lymphadenopathy Cardiovascular: Yes: Regular Rate and Rhythm, S1, S2 Respiratory: Yes: Regular, Other (coarse BS bilat). No: Rhonchi Gastrointestinal: Yes: Normal Bowel Sounds, Soft, Abdomen, Obese. No: Palpable Mass ...Rectal Exam: Yes: Deferred Renal/: No: CVA Tenderness - Left, CVA Tenderness - Right Edema: Yes Integumentary: Yes: Erythema, Other (warm,; clean dressing. Erythema of lower abd/ inguinal area) Neurological: Yes: Alert, Oriented, Other (motor and sensory examination is symmetric) Labs: CBC, BMP 09/17/18 22:50 09/17/18 22:50 Problem List - Problems (1) Bilateral lower leg cellulitis Code(s): L03.116 - CELLULITIS OF LEFT LOWER LIMB; L03.115 - CELLULITIS OF RIGHT LOWER LIMB (2) Chronic venous stasis dermatitis of both lower extremities Code(s): I83.11 - VARICOSE VEINS OF RIGHT LOWER EXTREMITY WITH INFLAMMATION; I83.12 - VARICOSE VEINS OF LEFT LOWER EXTREMITY WITH INFLAMMATION (3) COPD (chronic obstructive pulmonary disease) Code(s): J44.9 - CHRONIC OBSTRUCTIVE PULMONARY DISEASE, UNSPECIFIED Qualifiers: COPD type: COPD with acute exacerbation Qualified Code(s): J44.1 - Chronic obstructive pulmonary disease with (acute) exacerbation (4) CVA (cerebral vascular accident) Code(s): I63.9 - CEREBRAL INFARCTION, UNSPECIFIED (5) Diabetes mellitus Code(s): E11.9 - TYPE 2 DIABETES MELLITUS WITHOUT COMPLICATIONS (6) Karla rash of groin Code(s): B37.89 - OTHER SITES OF CANDIDIASIS (7) CRF (chronic renal failure) Code(s): N18.9 - CHRONIC KIDNEY DISEASE, UNSPECIFIED (8) Obesity Code(s): E66.9 - OBESITY, UNSPECIFIED Qualifiers: Obesity classification: unspecified obesity classification Assessment/Plan IV Cefepime IV Vanco ID consult Vascular surgery consult AM labs Case was d/w pt's nurse.
[2018-09-18] MEDS: CLOPIDOGREL BISULFATE 75 MG TABLET (FP) PO SCH (09:47)
[2018-09-18] MEDS: CITALOPRAM HYDROBROMIDE 20 MG TABLET (FP) PO SCH (09:47)
[2018-09-18] MEDS: ASPIRIN 81 MG CHEWABLE TABLETS PO SCH (09:47)
[2018-09-18] MEDS: LIDOCAINE 5% TOPICAL PATCH TP SCH (09:47)
[2018-09-18] MEDS: HEPARIN NA (PORCINE) 5,000 UNITS/ML 1ML VIAL SQ SCH ×2 (09:48→22:17)
[2018-09-18] MEDS: ACETAMINOPHEN 325 MG TABLET (FP) PO PRN (09:50)
[2018-09-18] MEDS: MINERAL OIL/PET HY-PHL TOPICAL OINTMENT 454 GM JAR TP SCH ×2 (11:20→22:17)
[2018-09-18] MEDS: BUDESONIDE/FORMETEROL FUMARATE 160/4.5 mcg INHALER IH SCH ×2 (11:20→22:19)
[2018-09-18] MEDS: NYSTATIN/TRIAMCINOLONE TOPICAL OINTMENT 15 GM TUBE TP SCH ×2 (11:21→22:17)
[2018-09-18] MEDS: TORSEMIDE 10 MG TABLET PO SCH (11:21)
[2018-09-18] MEDS: TIOTROPIUM BROMIDE 2.5 MCG (SPIRIVA) RESPIMAT INHALER IH SCH (11:22)
[2018-09-18] MEDS ORDERED: CEFEPIME HCL/D5W 1 GM/50 ML BAG IVPB ONE (11:43)
[2018-09-18] MEDS ORDERED: VANCOMYCIN 1 GRAM (PRE-DOCKED) 1,000 MG/250 ML BAG IVPB ONE ×2 (11:44→12:15)
[2018-09-18] MEDS ORDERED: DEXTROSE 5%-WATER - 50 ML IVPB ONE (12:29)
[2018-09-18] MEDS ORDERED: CEFEPIME HCL 1 GM VIAL (RESTRICTED TO ID) ONE ×2 (12:29→21:20)
[2018-09-18] MEDS ORDERED: CEFEPIME 1 GM in DEXTROSE 5%-WATER - 50 ML IVPB ONE (12:30)
--- NOTE | 2018-09-18 12:32 | EKG ---
Test Reason : Blood Pressure : / mmHG Vent. Rate : 068 BPM Atrial Rate : 083 BPM P-R Int : 000 ms QRS Dur : 152 ms QT Int : 472 ms P-R-T Axes : 000 036 079 degrees QTc Int : 501 ms UNDETERMINED RHYTHM LEFT BUNDLE BRANCH BLOCK ABNORMAL ECG Confirmed by MD KELLY, SELVIN ([id number]) on 09/18/2018 12:31:48 PM Referred By: Confirmed By:SELVIN MENDOZA MD
--- NOTE | 2018-09-18 17:14 | CON.ID ---
Consult Consult Specialty:: infectious disease Referred by:: dr hightower Reason for Consultation:: cellulitis - History of Present Illness Chief Complaint: erythema of both legs History of Present Illness: 68 yo man with copd, bilateral venous stasis, just discharged from the hospital 08/24 on po clindamycin to the ne readmitted with worsening erythema of both legs recent levaquin and doxycycline at the ne no fevers - History Source History Provided By: Patient, Medical Record Limitations to Obtaining History: Clinical Condition - Past Medical History [employer]: Yes: CVA (no deficit, 5 years ago) Cardio/Vascular: Yes: CAD, HTN, Hyperlipdemia Pulmonary: Yes: COPD (on CPAP at night), O2 Dependent, Other (Cronic respiratory failure, on BIPAP at home) Renal/: Yes: Renal Failure (chronic) Infectious Disease: Yes: MRSA, Other (Bilat. 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 History of Recent Travel: No Home Medications - Allergies Allergies/Adverse Reactions: Allergies Allergy/AdvReac Type Severity Reaction Status Date / Time amoxicillin trihydrate Allergy Unknown Verified 07/10/18 13:29 [From Augmentin] potassium clavulanate Allergy Unknown Verified 07/10/18 13:29 [From Augmentin] - Home Medications Home Medications: Ambulatory Orders Aspirin [ASA -] 81 mg PO DAILY 08/15/18 Atorvastatin Ca [Lipitor] 20 mg PO HS 08/15/18 Citalopram Hydrobromide [Citalopram HBr] 40 mg PO DAILY 08/15/18 Clopidogrel Bisulfate [Clopidogrel] 75 mg PO DAILY 08/15/18 Insulin (Levemir) [Levemir Vial] 14 unit SQ BID 08/15/18 Torsemide [Demadex -] 10 mg PO DAILY 08/15/18 Vit B12/Folic Acid/B6/Aa No.15 [Glycotrol Capsule] 1 each PO DAILY 08/15/18 Acetaminophen [Tylenol .Regular Strength -] 650 mg PO Q6H PRN tablet 08/24/18 Albuterol 0.083% Nebulizer Kala [Ventolin 0.083% Nebulizer Soln -] 1 amp NEB Q6H PRN amp 08/24/18 Budesonide/Formeterol Fumarate [SYMBICORT 160/4.5mcg -] 2 puff IH BID inhaler 08/24/18 Clindamycin [Cleocin -] 450 mg PO TID #21 capsule MDD 3 08/24/18 Heparin - 5,000 unit SQ BID vial 08/24/18 Insulin Sliding Scale [Novolog Vial Sliding Scale -] 1 vial SQ ACHS units 08/24 Lidocaine 5% Patch [Lidoderm -] 1 patch TP DAILY patch 08/24/18 Lidocaine Patch Removal [Lidoderm Patch Removal] 1 each MC DAILY@2200 each 12/10 Mineral Oil/Pet Hy-Phl [Aquaphor -] 1 applic TP BID jar 08/24/18 Nystatin/Triamcinolone Top Oin [Mycolog II -] 1 applic TP BID applic 08/24/18 Tiotropium [place] [Spiriva Respimat] 2 puff IH DAILY inhaler 08/24/18 oxyCODONE HCL [Roxicodone -] 5 mg PO Q6H PRN #40 tablet MDD 4 08/24/18 Family Disease History - Family Disease History Family Disease History: Diabetes: Daughter Review of Systems - Review of Systems Constitutional: reports: No Symptoms. denies: Chills, Fever Eyes: reports: No Symptoms HENT: reports: No Symptoms Neck: reports: No Symptoms Cardiovascular: reports: No Symptoms. denies: Chest Pain Respiratory: denies: Cough Physical Exam Vital Signs: Vital Signs Temperature 98.7 F 09/18/18 15:47 Pulse Rate 71 09/18/18 15:47 Respiratory Rate 19 09/18/18 15:47 Blood Pressure 143/62 09/18/18 15:47 O2 Sat by Pulse Oximetry (%) 94 L 09/18/18 08:13 Constitutional: Yes: No Distress HENT: Yes: Atraumatic, Normocephalic Neck: Yes: Supple Cardiovascular: Yes: Regular Rate and Rhythm Respiratory: Yes: CTA Bilaterally, Diminished Gastrointestinal: Yes: Normal Bowel Sounds, Soft Extremities: Yes: Other (dressings just done by surgery- per note venous stasis/ dermatitis with erythema of both inner thighs) Labs: CBC, BMP 09/17/18 22:50 09/17/18 22:50 Problem List - Problems (1) Cellulitis of leg Code(s): L03.119 - CELLULITIS OF UNSPECIFIED PART OF LIMB Qualifiers: Laterality: unspecified laterality Qualified Code(s): L03.119 - Cellulitis of unspecified part of limb (2) THERESA (acute kidney injury) Code(s): N17.9 - ACUTE KIDNEY FAILURE, UNSPECIFIED (3) Venous stasis Code(s): I87.8 - OTHER SPECIFIED DISORDERS OF VEINS (4) Allergic reaction to Augmentin Code(s): Z88.1 - ALLERGY STATUS TO OTHER ANTIBIOTIC AGENTS STATUS Assessment/Plan received vancomycin and cefepime in ED, would continue check vancomycin trough in am before resuming repeat bmp given THERESA management of copd per PMD
[2018-09-18] MEDS ORDERED: PT OWN MED DRAWER 7, Y5N ONE (21:17)
[2018-09-18] MEDS ORDERED: DEXTROSE 5%-WATER 100 ML IVPB ONE (21:20)
[2018-09-18] MEDS: CEFEPIME 1 GM in DEXTROSE 5%-WATER 100 ML IVPB SCH (21:58)
[2018-09-18] MEDS ORDERED: DEXTROSE 50%-WATER - 25 GM/50 ML VIAL IVPUSH PRN (22:05)
[2018-09-18] MEDS ORDERED: DEXTROSE 50%-WATER 25 GM/50 ML DISP.SYRIN ONE (22:07)
[2018-09-18] MEDS: ATORVASTATIN CA 20 MG TABLET (FP) PO SCH (22:17)
[2018-09-18] MEDS: LIDOCAINE PATCH REMOVAL MC SCH (22:17)
[2018-09-19] MEDS ORDERED: DEXTROSE 50%-WATER 25 GM/50 ML DISP.SYRIN ONE (02:22)
[2018-09-19] MEDS ORDERED: DEXTROSE 50%-WATER - 25 GM/50 ML VIAL IVPUSH PRN (02:34)
[2018-09-19] MEDS: SODIUM CHLORIDE 1,000 ML IV SCH (06:15)
[2018-09-19] MEDS: INSULIN SLIDING SCALE (NOVOLOG) 1 VIAL SQ SCH ×4 (06:21→21:54)
[2018-09-19] MEDS: INSULIN (LEVEMIR) 100 UNITS/ML UNITS SQ SCH ×2 (06:21→17:23)
[2018-09-19 07:56] LABS: ANION GAP 5 MMOL/L (8-16); BLOOD UREA NITROGEN 27 mg/dL (7-18); CALCIUM 8.1 mg/dL (8.5-10.1); CHLORIDE 112 mmol/L (98-107); CO2 29 mmol/L (21-32); CREATININE 1.1 mg/dL (0.55-1.3); GLUCOSE,RANDOM 61 mg/dL (74-106); POTASSIUM 4.8 mmol/L (3.5-5.1); SODIUM 147 mmol/L (136-145)
[2018-09-19] MEDS: oxyCODONE HCL 5 MG TABLET PO PRN (07:59)
[2018-09-19] MEDS ORDERED: PT OWN MED DRAWER 7, Y5N ONE ×3 (10:46→21:16)
[2018-09-19] MEDS ORDERED: CEFEPIME HCL 1 GM VIAL (RESTRICTED TO ID) ONE ×2 (10:46→21:16)
[2018-09-19] MEDS ORDERED: DEXTROSE 5%-WATER 100 ML IVPB ONE ×2 (10:47→21:16)
[2018-09-19] MEDS: CEFEPIME 1 GM in DEXTROSE 5%-WATER 100 ML IVPB SCH ×2 (10:50→21:46)
[2018-09-19] MEDS: LIDOCAINE 5% TOPICAL PATCH TP SCH (10:52)
[2018-09-19] MEDS: HEPARIN NA (PORCINE) 5,000 UNITS/ML 1ML VIAL SQ SCH ×2 (10:52→21:47)
[2018-09-19] MEDS: NYSTATIN/TRIAMCINOLONE TOPICAL OINTMENT 15 GM TUBE TP SCH ×2 (10:53→21:54)
[2018-09-19] MEDS: ASPIRIN 81 MG CHEWABLE TABLETS PO SCH (10:53)
[2018-09-19] MEDS: TIOTROPIUM BROMIDE 2.5 MCG (SPIRIVA) RESPIMAT INHALER IH SCH (10:53)
[2018-09-19] MEDS: CLOPIDOGREL BISULFATE 75 MG TABLET (FP) PO SCH (10:53)
[2018-09-19] MEDS: CITALOPRAM HYDROBROMIDE 20 MG TABLET (FP) PO SCH (10:53)
[2018-09-19] MEDS: TORSEMIDE 10 MG TABLET PO SCH (10:53)
[2018-09-19] MEDS: BUDESONIDE/FORMETEROL FUMARATE 160/4.5 mcg INHALER IH SCH ×2 (10:54→21:46)
[2018-09-19] MEDS: MINERAL OIL/PET HY-PHL TOPICAL OINTMENT 454 GM JAR TP SCH ×2 (10:57→21:47)
--- NOTE | 2018-09-19 11:06 | PN ---
Progress Note, Physician History of Present Illness: Pt w/o fever, chills, SOB, CP, abd pain, diarrhea. - Current Medication List Current Medications: Active Medications Acetaminophen (Tylenol -) 650 mg PO Q6H PRN PRN Reason: PAIN LEVEL 1-5 Last Admin: 09/18/18 09:50 Dose: 650 mg Albuterol Sulfate (Ventolin 0.083% Nebulizer Soln -) 1 amp NEB Q6H PRN PRN Reason: SHORT OF BREATH/WHEEZING Aspirin (Asa -) 81 mg PO DAILY [facility] Last Admin: 09/19/18 10:53 Dose: 81 mg Atorvastatin Calcium (Lipitor -) 20 mg PO HS [facility] Last Admin: 09/18/18 22:17 Dose: 20 mg Budesonide/Formoterol Fumarate (Symbicort 160/4.5mcg -) 2 puff IH BID [facility] Last Admin: 09/19/18 10:54 Dose: 2 puff Citalopram Hydrobromide (Celexa -) 40 mg PO DAILY [facility] Last Admin: 09/19/18 10:53 Dose: 40 mg Clopidogrel Bisulfate (Plavix -) 75 mg PO DAILY [facility] Last Admin: 09/19/18 10:53 Dose: 75 mg Dextrose (D50w (Vial) -) 25 gm IVPUSH PRN PRN PRN Reason: HYPOGLYCEMIA Last Admin: 09/19/18 02:50 Dose: 25 gm Emollient Ointment (Aquaphor -) 1 applic TP BID [facility] Last Admin: 09/19/18 10:57 Dose: 1 applic Heparin Sodium (Porcine) (Heparin -) 5,000 unit SQ BID [facility] Last Admin: 09/19/18 10:52 Dose: 5,000 unit Sodium Chloride (Normal Saline -) 1,000 mls @ 50 mls/hr IV ASDIR [facility] Last Admin: 09/19/18 06:15 Dose: 50 mls/hr Cefepime HCl 1 gm/ Dextrose 100 mls @ 100 mls/hr IVPB BID [facility]; Protocol Last Admin: 09/19/18 10:50 Dose: 100 mls/hr Insulin Aspart (Novolog Vial Sliding Scale -) 1 vial SQ ACHS [facility]; Protocol Last Admin: 09/19/18 06:21 Dose: Not Given Insulin Detemir (Levemir Vial) 14 units SQ BIDI [facility] Last Admin: 09/19/18 06:21 Dose: Not Given Lidocaine (Lidoderm Patch -) 1 patch TP DAILY [facility] Last Admin: 09/19/18 10:52 Dose: 1 patch Miscellaneous (Lidoderm Patch Removal) 1 each MC DAILY@2200 [facility] Last Admin: 09/18/18 22:17 Dose: 1 each Nystatin/Triamcinolone Acetonide (Mycolog Ii Ointment -) 1 applic TP BID [facility] Last Admin: 09/19/18 10:53 Dose: 1 applic Oxycodone HCl (Roxicodone -) 5 mg PO Q6H PRN PRN Reason: PAIN LEVEL 6-10 Last Admin: 09/19/18 07:59 Dose: 5 mg Tiotropium [place] (Spiriva Respimat) 2 puff IH DAILY [facility] Last Admin: 09/19/18 10:53 Dose: 2 puff Torsemide (Demadex -) 10 mg PO DAILY [facility] Last Admin: 09/19/18 10:53 Dose: 10 mg - Objective Vital Signs: Vital Signs Temperature 98.0 F 09/19/18 06:08 Pulse Rate 69 09/19/18 06:08 Respiratory Rate 20 09/19/18 06:08 Blood Pressure 143/74 09/19/18 06:08 O2 Sat by Pulse Oximetry (%) 97 09/18/18 21:00 Constitutional: Yes: No Distress, Calm Cardiovascular: Yes: Regular Rate and Rhythm, S1, S2 Respiratory: Yes: Regular, Rhonchi (minimal scattered). No: Wheezes Gastrointestinal: Yes: Normal Bowel Sounds, Soft, Abdomen, Obese. No: Tenderness Extremities: Yes: Erythema Edema: Yes Integumentary: Yes: Erythema (LE), Venous Stasis Changes, Other (LE: oozing, warm to touch) Neurological: Yes: Alert, Oriented Labs: CBC, BMP 09/17/18 22:50 09/19/18 06:10 Problem List - Problems (1) Bilateral lower leg cellulitis Code(s): L03.116 - CELLULITIS OF LEFT LOWER LIMB; L03.115 - CELLULITIS OF RIGHT LOWER LIMB (2) Chronic venous stasis dermatitis of both lower extremities Code(s): I83.11 - VARICOSE VEINS OF RIGHT LOWER EXTREMITY WITH INFLAMMATION; I83.12 - VARICOSE VEINS OF LEFT LOWER EXTREMITY WITH INFLAMMATION (3) COPD (chronic obstructive pulmonary disease) Code(s): J44.9 - CHRONIC OBSTRUCTIVE PULMONARY DISEASE, UNSPECIFIED Qualifiers: COPD type: COPD with acute exacerbation Qualified Code(s): J44.1 - Chronic obstructive pulmonary disease with (acute) exacerbation (4) CVA (cerebral vascular accident) Code(s): I63.9 - CEREBRAL INFARCTION, UNSPECIFIED (5) Diabetes mellitus Code(s): E11.9 - TYPE 2 DIABETES MELLITUS WITHOUT COMPLICATIONS (6) Karla rash of groin Code(s): B37.89 - OTHER SITES OF CANDIDIASIS (7) CRF (chronic renal failure) Code(s): N18.9 - CHRONIC KIDNEY DISEASE, UNSPECIFIED (8) Obesity Code(s): E66.9 - OBESITY, UNSPECIFIED Qualifiers: Obesity classification: unspecified obesity classification Assessment/Plan IV Cefepime IV Vanco ID, Vasc SX consults are appreciated AM labs Case was d/w pt's nurse.
--- NOTE | 2018-09-19 13:02 | PN ---
Progress Note (short form) - Note Progress Note: legs unwrapped and examined today much more awake and alert no fevers Vital Signs Period Temp Pulse Resp BP Sys/Mullen Pulse Ox Last 24 Hr 98.0 F-98.7 F 69-80 19-20 131-143/54-74 97-97 cor-rrr lungs clear abd soft,nt ext bilateral venous stasis with some shallow skin erosions, minimal serous drainage, +erythema extending to the inner thighs left inner thigh is tender to palpation CBC, BMP 09/17/18 22:50 09/19/18 06:10 Microbiology 09/17/18 23:00 Cellulitis Gram Stain - Final 09/17/18 23:00 Cellulitis Wound Culture - Preliminary Diphtheroid/Corynebacterium Non Lactose Fermenting Gnb Pending Organism Pending Organism#2 09/17/18 09:25 Blood - Peripheral Venous Blood Culture - Preliminary NO GROWTH OBTAINED AFTER 24 HOURS, INCUBATION TO CONTINUE FOR 4 DAYS. 09/17/18 22:50 Blood - Peripheral Venous Blood Culture - Preliminary NO GROWTH OBTAINED AFTER 24 HOURS, INCUBATION TO CONTINUE FOR 4 DAYS. Laboratory Tests 09/19/18 06:10 Random Vancomycin 15.0 L a/p cellulitis venous stasis history of MRSA/pseudomonas inthe past COPD on bipap augmentin allergy theresa-resolved continue vancomycin and cefepime f/u cultures Problem List - Problems (1) Cellulitis of leg Code(s): L03.119 - CELLULITIS OF UNSPECIFIED PART OF LIMB Qualifiers: Laterality: unspecified laterality Qualified Code(s): L03.119 - Cellulitis of unspecified part of limb (2) THERESA (acute kidney injury) Code(s): N17.9 - ACUTE KIDNEY FAILURE, UNSPECIFIED (3) Venous stasis Code(s): I87.8 - OTHER SPECIFIED DISORDERS OF VEINS (4) Allergic reaction to Augmentin Code(s): Z88.1 - ALLERGY STATUS TO OTHER ANTIBIOTIC AGENTS STATUS
[2018-09-19] MEDS: VANCOMYCIN 1,250 MG in DEXTROSE 5%-WATER - 250 ML IVPB SCH (14:20)
[2018-09-19] MEDS: ATORVASTATIN CA 20 MG TABLET (FP) PO SCH (21:47)
[2018-09-19] MEDS: LIDOCAINE PATCH REMOVAL MC SCH (21:54)
[2018-09-20] MEDS ORDERED: PT OWN MED DRAWER 7, Y5N ONE ×2 (03:31→10:27)
[2018-09-20] MEDS: oxyCODONE HCL 5 MG TABLET PO PRN (03:35)
[2018-09-20] MEDS: INSULIN (LEVEMIR) 100 UNITS/ML UNITS SQ SCH ×2 (06:40→17:01)
[2018-09-20] MEDS: SODIUM CHLORIDE 1,000 ML IV SCH (06:40)
[2018-09-20] MEDS: INSULIN SLIDING SCALE (NOVOLOG) 1 VIAL SQ SCH ×4 (06:41→21:51)
[2018-09-20 07:42] LABS: HEMATOCRIT 30.3 % (35.4-49); HEMOGLOBIN 9.8 GM/dL (11.7-16.9); MCH 25.3 pg (25.7-33.7); MCHC 32.3 g/dl (32.0-35.9); MEAN CELL VOLUME 78.4 fl (80-96); PLATELET COUNT 201 K/MM3 (134-434); RBC 3.87 M/mm3 (4.00-5.60); RDW 19.5 % (11.9-15.9); WHITE BLOOD COUNT 7.5 K/mm3 (4.0-10.0)
[2018-09-20 08:08] LABS: ALBUMIN 2.1 g/dl (3.4-5.0); ALK PHOS 64 U/L (45-117); ANION GAP 4 MMOL/L (8-16); BILIRUBIN,TOTAL 0.3 mg/dL (0.2-1); BLOOD UREA NITROGEN 27 mg/dL (7-18); CHLORIDE 112 mmol/L (98-107); CO2 30 mmol/L (21-32); CREATININE 1.1 mg/dL (0.55-1.3); GLUCOSE,RANDOM 115 mg/dL (74-106); POTASSIUM 4.3 mmol/L (3.5-5.1); SGOT/AST 15 U/L (15-37); SGPT/ALT 12 U/L (13-61); SODIUM 146 mmol/L (136-145); TOT PROT 5.6 g/dl (6.4-8.2)
--- NOTE | 2018-09-20 09:48 | PN ---
Progress Note, Physician History of Present Illness: Pt w/o fever, chills, SOB, CP, abd pain. - Current Medication List Current Medications: Active Medications Acetaminophen (Tylenol -) 650 mg PO Q6H PRN PRN Reason: PAIN LEVEL 1-5 Last Admin: 09/18/18 09:50 Dose: 650 mg Albuterol Sulfate (Ventolin 0.083% Nebulizer Soln -) 1 amp NEB Q6H PRN PRN Reason: SHORT OF BREATH/WHEEZING Aspirin (Asa -) 81 mg PO DAILY [facility] Last Admin: 09/19/18 10:53 Dose: 81 mg Atorvastatin Calcium (Lipitor -) 20 mg PO HS [facility] Last Admin: 09/19/18 21:47 Dose: 20 mg Budesonide/Formoterol Fumarate (Symbicort 160/4.5mcg -) 2 puff IH BID [facility] Last Admin: 09/19/18 21:46 Dose: 2 puff Citalopram Hydrobromide (Celexa -) 40 mg PO DAILY [facility] Last Admin: 09/19/18 10:53 Dose: 40 mg Clopidogrel Bisulfate (Plavix -) 75 mg PO DAILY [facility] Last Admin: 09/19/18 10:53 Dose: 75 mg Dextrose (D50w (Vial) -) 25 gm IVPUSH PRN PRN PRN Reason: HYPOGLYCEMIA Last Admin: 09/19/18 02:50 Dose: 25 gm Emollient Ointment (Aquaphor -) 1 applic TP BID [facility] Last Admin: 09/19/18 21:47 Dose: 1 applic Heparin Sodium (Porcine) (Heparin -) 5,000 unit SQ BID [facility] Last Admin: 09/19/18 21:47 Dose: 5,000 unit Sodium Chloride (Normal Saline -) 1,000 mls @ 50 mls/hr IV ASDIR [facility] Last Admin: 09/20/18 06:40 Dose: 50 mls/hr Cefepime HCl 1 gm/ Dextrose 100 mls @ 100 mls/hr IVPB BID [facility]; Protocol Last Admin: 09/19/18 21:46 Dose: 100 mls/hr Vancomycin HCl 1,250 mg/ (Dextrose) 250 mls @ 250 mls/2 hr IVPB Q24H [facility]; Protocol Last Admin: 09/19/18 14:20 Dose: 250 mls/2 hr Insulin Aspart (Novolog Vial Sliding Scale -) 1 vial SQ ACHS [facility]; Protocol Last Admin: 09/20/18 06:41 Dose: Not Given Insulin Detemir (Levemir Vial) 14 units SQ BIDI [facility] Last Admin: 09/20/18 06:40 Dose: Not Given Lidocaine (Lidoderm Patch -) 1 patch TP DAILY [facility] Last Admin: 09/19/18 10:52 Dose: 1 patch Miscellaneous (Lidoderm Patch Removal) 1 each MC DAILY@2200 [facility] Last Admin: 09/19/18 21:54 Dose: 1 each Nystatin/Triamcinolone Acetonide (Mycolog Ii Ointment -) 1 applic TP BID [facility] Last Admin: 09/19/18 21:54 Dose: 1 applic Oxycodone HCl (Roxicodone -) 5 mg PO Q6H PRN PRN Reason: PAIN LEVEL 6-10 Last Admin: 09/20/18 03:35 Dose: 5 mg Tiotropium [place] (Spiriva Respimat) 2 puff IH DAILY [facility] Last Admin: 09/19/18 10:53 Dose: 2 puff Torsemide (Demadex -) 10 mg PO DAILY [facility] Last Admin: 09/19/18 10:53 Dose: 10 mg - Objective Vital Signs: Vital Signs Temperature 98.7 F 09/20/18 06:54 Pulse Rate 98 H 09/20/18 06:54 Respiratory Rate 20 09/20/18 06:54 Blood Pressure 138/67 09/20/18 06:54 O2 Sat by Pulse Oximetry (%) 95 09/20/18 09:19 Constitutional: Yes: No Distress, Calm Cardiovascular: Yes: Regular Rate and Rhythm, S1, S2 Respiratory: Yes: Regular, CTA Bilaterally. No: Rales Gastrointestinal: Yes: Normal Bowel Sounds, Soft, Abdomen, Obese. No: Tenderness Edema: Yes Edema: LLE: 1+, RLE: 1+ Neurological: Yes: Alert, Oriented Labs: CBC, BMP 09/20/18 06:40 09/20/18 06:40 Problem List - Problems (1) Bilateral lower leg cellulitis Code(s): L03.116 - CELLULITIS OF LEFT LOWER LIMB; L03.115 - CELLULITIS OF RIGHT LOWER LIMB (2) Chronic venous stasis dermatitis of both lower extremities Code(s): I83.11 - VARICOSE VEINS OF RIGHT LOWER EXTREMITY WITH INFLAMMATION; I83.12 - VARICOSE VEINS OF LEFT LOWER EXTREMITY WITH INFLAMMATION (3) COPD (chronic obstructive pulmonary disease) Code(s): J44.9 - CHRONIC OBSTRUCTIVE PULMONARY DISEASE, UNSPECIFIED Qualifiers: COPD type: COPD with acute exacerbation Qualified Code(s): J44.1 - Chronic obstructive pulmonary disease with (acute) exacerbation (4) CVA (cerebral vascular accident) Code(s): I63.9 - CEREBRAL INFARCTION, UNSPECIFIED (5) Diabetes mellitus Code(s): E11.9 - TYPE 2 DIABETES MELLITUS WITHOUT COMPLICATIONS (6) Karla rash of groin Code(s): B37.89 - OTHER SITES OF CANDIDIASIS (7) CRF (chronic renal failure) Code(s): N18.9 - CHRONIC KIDNEY DISEASE, UNSPECIFIED (8) Obesity Code(s): E66.9 - OBESITY, UNSPECIFIED Qualifiers: Obesity classification: unspecified obesity classification Assessment/Plan IV Cefepime IV Vanco ID, Vasc SX consults are appreciated AM labs Case was d/w pt's nurse.
[2018-09-20] MEDS ORDERED: CEFEPIME HCL 1 GM VIAL (RESTRICTED TO ID) ONE ×2 (09:58→21:28)
[2018-09-20] MEDS ORDERED: DEXTROSE 5%-WATER 100 ML IVPB ONE ×2 (09:58→21:28)
[2018-09-20] MEDS: CEFEPIME 1 GM in DEXTROSE 5%-WATER 100 ML IVPB SCH ×2 (10:08→21:48)
[2018-09-20] MEDS: HEPARIN NA (PORCINE) 5,000 UNITS/ML 1ML VIAL SQ SCH ×2 (10:10→21:49)
[2018-09-20] MEDS: LIDOCAINE 5% TOPICAL PATCH TP SCH (10:12)
[2018-09-20] MEDS: CITALOPRAM HYDROBROMIDE 20 MG TABLET (FP) PO SCH (10:13)
[2018-09-20] MEDS: ASPIRIN 81 MG CHEWABLE TABLETS PO SCH (10:14)
[2018-09-20] MEDS: CLOPIDOGREL BISULFATE 75 MG TABLET (FP) PO SCH (10:14)
[2018-09-20] MEDS: TORSEMIDE 10 MG TABLET PO SCH (10:14)
[2018-09-20] MEDS: TIOTROPIUM BROMIDE 2.5 MCG (SPIRIVA) RESPIMAT INHALER IH SCH (10:17)
[2018-09-20] MEDS: BUDESONIDE/FORMETEROL FUMARATE 160/4.5 mcg INHALER IH SCH ×2 (10:17→21:52)
[2018-09-20] MEDS: NYSTATIN/TRIAMCINOLONE TOPICAL OINTMENT 15 GM TUBE TP SCH ×2 (10:21→21:49)
[2018-09-20] MEDS: MINERAL OIL/PET HY-PHL TOPICAL OINTMENT 454 GM JAR TP SCH ×2 (10:21→21:49)
[2018-09-20] MEDS: VANCOMYCIN 1,250 MG in DEXTROSE 5%-WATER - 250 ML IVPB SCH (13:46)
--- NOTE | 2018-09-20 16:06 | PN ---
Progress Note (short form) - Note Progress Note: dressing just done by RN looks less red per RN Vital Signs Period Temp Pulse Resp BP Sys/Mullen Pulse Ox Last 24 Hr 98.1 F-98.9 F 61-98 20-20 121-142/62-70 95-97 cor-rrr lungs clear abd soft,nt ext dressing intact less erythema of the thighs CBC, BMP 09/20/18 06:40 09/20/18 06:40 Microbiology 09/17/18 23:00 Cellulitis Gram Stain - Final 09/17/18 23:00 Cellulitis Wound Culture - Preliminary Diphtheroid/Corynebacterium Pseudomonas Aeruginosa Pending Organism Group D Strep Or Entero Coccus 09/17/18 09:25 Blood - Peripheral Venous Blood Culture - Preliminary NO GROWTH OBTAINED AFTER 48 HOURS, INCUBATION TO CONTINUE FOR 3 DAYS. 09/17/18 22:50 Blood - Peripheral Venous Blood Culture - Preliminary NO GROWTH OBTAINED AFTER 48 HOURS, INCUBATION TO CONTINUE FOR 3 DAYS. 09/19/18 06:10 Random Vancomycin 15.0 L a/p cellulitis venous stasis history of MRSA/pseudomonas inthe past-highly resistant pseudomonas COPD on bipap augmentin allergy theresa-resolved continue vancomycin continue local care vanco level in am f/u cultures Problem List - Problems (1) Cellulitis of leg Code(s): L03.119 - CELLULITIS OF UNSPECIFIED PART OF LIMB Qualifiers: Laterality: unspecified laterality Qualified Code(s): L03.119 - Cellulitis of unspecified part of limb (2) THERESA (acute kidney injury) Code(s): N17.9 - ACUTE KIDNEY FAILURE, UNSPECIFIED (3) Venous stasis Code(s): I87.8 - OTHER SPECIFIED DISORDERS OF VEINS (4) Allergic reaction to Augmentin Code(s): Z88.1 - ALLERGY STATUS TO OTHER ANTIBIOTIC AGENTS STATUS
[2018-09-20] MEDS: ATORVASTATIN CA 20 MG TABLET (FP) PO SCH (21:49)
[2018-09-20] MEDS: LIDOCAINE PATCH REMOVAL MC SCH (21:49)
[2018-09-21] MEDS: SODIUM CHLORIDE 1,000 ML IV SCH ×2 (01:00→22:13)
[2018-09-21] MEDS: INSULIN (LEVEMIR) 100 UNITS/ML UNITS SQ SCH ×2 (06:15→17:31)
[2018-09-21] MEDS: INSULIN SLIDING SCALE (NOVOLOG) 1 VIAL SQ SCH ×4 (06:16→22:05)
[2018-09-21 07:55] LABS: HEMATOCRIT 31.3 % (35.4-49); HEMOGLOBIN 10.3 GM/dL (11.7-16.9); MCH 25.7 pg (25.7-33.7); MCHC 32.8 g/dl (32.0-35.9); MEAN CELL VOLUME 78.3 fl (80-96); MEAN PLT VOLUME 8.2 fl (7.5-11.1); PLATELET COUNT 199 K/MM3 (134-434); RDW 19.1 % (11.9-15.9); WHITE BLOOD COUNT 8.8 K/mm3 (4.0-10.0)
[2018-09-21 08:39] LABS: ANION GAP 8 MMOL/L (8-16); BLOOD UREA NITROGEN 28 mg/dL (7-18); CALCIUM 7.8 mg/dL (8.5-10.1); CHLORIDE 107 mmol/L (98-107); CO2 28 mmol/L (21-32); GLUCOSE,RANDOM 86 mg/dL (74-106); POTASSIUM 4.5 mmol/L (3.5-5.1); SODIUM 142 mmol/L (136-145)
[2018-09-21] MEDS ORDERED: DEXTROSE 5%-WATER 100 ML IVPB ONE ×2 (10:37→20:57)
[2018-09-21] MEDS ORDERED: PT OWN MED DRAWER 7, Y5N ONE ×2 (10:37→14:18)
[2018-09-21] MEDS ORDERED: CEFEPIME HCL 1 GM VIAL (RESTRICTED TO ID) ONE ×2 (10:37→20:57)
[2018-09-21] MEDS: CLOPIDOGREL BISULFATE 75 MG TABLET (FP) PO SCH (10:50)
[2018-09-21] MEDS: ASPIRIN 81 MG CHEWABLE TABLETS PO SCH (10:50)
[2018-09-21] MEDS: LIDOCAINE 5% TOPICAL PATCH TP SCH (10:51)
[2018-09-21] MEDS: TORSEMIDE 10 MG TABLET PO SCH (10:51)
[2018-09-21] MEDS: CITALOPRAM HYDROBROMIDE 20 MG TABLET (FP) PO SCH (10:51)
[2018-09-21] MEDS: HEPARIN NA (PORCINE) 5,000 UNITS/ML 1ML VIAL SQ SCH ×2 (10:52→22:03)
[2018-09-21] MEDS: MINERAL OIL/PET HY-PHL TOPICAL OINTMENT 454 GM JAR TP SCH ×2 (10:52→22:08)
[2018-09-21] MEDS: TIOTROPIUM BROMIDE 2.5 MCG (SPIRIVA) RESPIMAT INHALER IH SCH (10:53)
[2018-09-21] MEDS: NYSTATIN/TRIAMCINOLONE TOPICAL OINTMENT 15 GM TUBE TP SCH ×2 (10:53→22:20)
[2018-09-21] MEDS: CEFEPIME 1 GM in DEXTROSE 5%-WATER 100 ML IVPB SCH ×2 (10:53→22:05)
[2018-09-21] MEDS: BUDESONIDE/FORMETEROL FUMARATE 160/4.5 mcg INHALER IH SCH ×2 (10:54→22:04)
--- NOTE | 2018-09-21 11:00 | PN ---
Progress Note, Physician History of Present Illness: Pt w/o fever, chills, SOB, CP, abd pain, diarrhea. - Current Medication List Current Medications: Active Medications Acetaminophen (Tylenol -) 650 mg PO Q6H PRN PRN Reason: PAIN LEVEL 1-5 Last Admin: 09/18/18 09:50 Dose: 650 mg Albuterol Sulfate (Ventolin 0.083% Nebulizer Soln -) 1 amp NEB Q6H PRN PRN Reason: SHORT OF BREATH/WHEEZING Aspirin (Asa -) 81 mg PO DAILY [facility] Last Admin: 09/20/18 10:14 Dose: 81 mg Atorvastatin Calcium (Lipitor -) 20 mg PO HS [facility] Last Admin: 09/20/18 21:49 Dose: 20 mg Budesonide/Formoterol Fumarate (Symbicort 160/4.5mcg -) 2 puff IH BID [facility] Last Admin: 09/20/18 21:52 Dose: 2 puff Citalopram Hydrobromide (Celexa -) 40 mg PO DAILY [facility] Last Admin: 09/20/18 10:13 Dose: 40 mg Clopidogrel Bisulfate (Plavix -) 75 mg PO DAILY [facility] Last Admin: 09/20/18 10:14 Dose: 75 mg Dextrose (D50w (Vial) -) 25 gm IVPUSH PRN PRN PRN Reason: HYPOGLYCEMIA Last Admin: 09/19/18 02:50 Dose: 25 gm Emollient Ointment (Aquaphor -) 1 applic TP BID [facility] Last Admin: 09/20/18 21:49 Dose: 1 applic Heparin Sodium (Porcine) (Heparin -) 5,000 unit SQ BID [facility] Last Admin: 09/20/18 21:49 Dose: 5,000 unit Sodium Chloride (Normal Saline -) 1,000 mls @ 50 mls/hr IV ASDIR [facility] Last Admin: 09/21/18 01:00 Dose: Not Given Cefepime HCl 1 gm/ Dextrose 100 mls @ 100 mls/hr IVPB BID [facility]; Protocol Last Admin: 09/20/18 21:48 Dose: 100 mls/hr Vancomycin HCl 1,250 mg/ (Dextrose) 250 mls @ 250 mls/2 hr IVPB Q24H [facility]; Protocol Last Admin: 09/20/18 13:46 Dose: 250 mls/2 hr Insulin Aspart (Novolog Vial Sliding Scale -) 1 vial SQ ACHS [facility]; Protocol Last Admin: 09/21/18 06:16 Dose: Not Given Insulin Detemir (Levemir Vial) 14 units SQ BIDI [facility] Last Admin: 09/21/18 06:15 Dose: Not Given Lidocaine (Lidoderm Patch -) 1 patch TP DAILY [facility] Last Admin: 09/20/18 10:12 Dose: 1 patch Miscellaneous (Lidoderm Patch Removal) 1 each MC DAILY@2200 [facility] Last Admin: 09/20/18 21:49 Dose: 1 each Nystatin/Triamcinolone Acetonide (Mycolog Ii Ointment -) 1 applic TP BID [facility] Last Admin: 09/20/18 21:49 Dose: 1 applic Oxycodone HCl (Roxicodone -) 5 mg PO Q6H PRN PRN Reason: PAIN LEVEL 6-10 Last Admin: 09/20/18 03:35 Dose: 5 mg Tiotropium [place] (Spiriva Respimat) 2 puff IH DAILY [facility] Last Admin: 09/20/18 10:17 Dose: 2 puff Torsemide (Demadex -) 10 mg PO DAILY [facility] Last Admin: 09/20/18 10:14 Dose: 10 mg - Objective Vital Signs: Vital Signs Temperature 98.8 F 09/21/18 06:00 Pulse Rate 74 09/21/18 06:00 Respiratory Rate 20 09/21/18 06:00 Blood Pressure 139/67 09/21/18 06:00 O2 Sat by Pulse Oximetry (%) 99 09/21/18 07:32 Constitutional: Yes: No Distress, Calm Cardiovascular: Yes: Regular Rate and Rhythm, S1, S2 Respiratory: Yes: Regular, CTA Bilaterally. No: Rales Gastrointestinal: Yes: Normal Bowel Sounds, Soft, Abdomen, Obese. No: Tenderness Extremities: Yes: Erythema Edema: Yes Neurological: Yes: Alert, Oriented Labs: CBC, BMP 09/21/18 06:50 09/21/18 06:50 Problem List - Problems (1) Bilateral lower leg cellulitis Code(s): L03.116 - CELLULITIS OF LEFT LOWER LIMB; L03.115 - CELLULITIS OF RIGHT LOWER LIMB (2) Chronic venous stasis dermatitis of both lower extremities Code(s): I83.11 - VARICOSE VEINS OF RIGHT LOWER EXTREMITY WITH INFLAMMATION; I83.12 - VARICOSE VEINS OF LEFT LOWER EXTREMITY WITH INFLAMMATION (3) COPD (chronic obstructive pulmonary disease) Code(s): J44.9 - CHRONIC OBSTRUCTIVE PULMONARY DISEASE, UNSPECIFIED Qualifiers: COPD type: COPD with acute exacerbation Qualified Code(s): J44.1 - Chronic obstructive pulmonary disease with (acute) exacerbation (4) CVA (cerebral vascular accident) Code(s): I63.9 - CEREBRAL INFARCTION, UNSPECIFIED (5) Diabetes mellitus Code(s): E11.9 - TYPE 2 DIABETES MELLITUS WITHOUT COMPLICATIONS (6) Karla rash of groin Code(s): B37.89 - OTHER SITES OF CANDIDIASIS (7) CRF (chronic renal failure) Code(s): N18.9 - CHRONIC KIDNEY DISEASE, UNSPECIFIED (8) Obesity Code(s): E66.9 - OBESITY, UNSPECIFIED Qualifiers: Obesity classification: unspecified obesity classification Assessment/Plan IV Cefepime IV Vanco ID, Vasc SX consults are appreciated. Continue local care. AM labs Case was d/w pt's nurse (at bedside).
--- NOTE | 2018-09-21 14:33 | PN ---
Progress Note (short form) - Note Progress Note: no complaints Vital Signs Period Temp Pulse Resp BP Sys/Mullen Pulse Ox Last 24 Hr 97.8 F-98.8 F 74-80 20-20 139-140/67-78 96-99 cor-rrr lungs clear abd soft,nt ext less erythema of the thighs dressings intact CBC, BMP 09/21/18 06:50 09/21/18 06:50 Microbiology 09/17/18 23:00 Cellulitis Gram Stain - Final 09/17/18 23:00 Cellulitis Wound Culture - Preliminary Diphtheroid/Corynebacterium Pseudomonas Aeruginosa Pending Organism Enterococcus Faecalis 09/17/18 09:25 Blood - Peripheral Venous Blood Culture - Preliminary NO GROWTH OBTAINED AFTER 72 HOURS, INCUBATION TO CONTINUE FOR 2 DAYS. 09/17/18 22:50 Blood - Peripheral Venous Blood Culture - Preliminary NO GROWTH OBTAINED AFTER 72 HOURS, INCUBATION TO CONTINUE FOR 2 DAYS. 09/19/18 06:10 Random Vancomycin 15.0 L a/p cellulitis-improved venous stasis history of MRSA/pseudomonas inthe past-highly resistant pseudomonas COPD on bipap augmentin allergy theresa-resolved continue vancomycin continue local care vanco level pending f/u cultures Problem List - Problems (1) Cellulitis of leg Code(s): L03.119 - CELLULITIS OF UNSPECIFIED PART OF LIMB Qualifiers: Laterality: unspecified laterality Qualified Code(s): L03.119 - Cellulitis of unspecified part of limb (2) THERESA (acute kidney injury) Code(s): N17.9 - ACUTE KIDNEY FAILURE, UNSPECIFIED (3) Venous stasis Code(s): I87.8 - OTHER SPECIFIED DISORDERS OF VEINS (4) Allergic reaction to Augmentin Code(s): Z88.1 - ALLERGY STATUS TO OTHER ANTIBIOTIC AGENTS STATUS
[2018-09-21] MEDS: VANCOMYCIN 1,250 MG in DEXTROSE 5%-WATER - 250 ML IVPB SCH (15:18)
[2018-09-21] MEDS: ATORVASTATIN CA 20 MG TABLET (FP) PO SCH (22:04)
[2018-09-21] MEDS: LIDOCAINE PATCH REMOVAL MC SCH (22:30)
[2018-09-22] MEDS: INSULIN (LEVEMIR) 100 UNITS/ML UNITS SQ SCH (06:56)
[2018-09-22] MEDS: INSULIN SLIDING SCALE (NOVOLOG) 1 VIAL SQ SCH ×4 (06:56→22:46)
[2018-09-22 07:33] LABS: HEMATOCRIT 29.9 % (35.4-49); HEMOGLOBIN 9.1 GM/dL (11.7-16.9); MCH 23.9 pg (25.7-33.7); MCHC 30.5 g/dl (32.0-35.9); MEAN CELL VOLUME 78.4 fl (80-96); MEAN PLT VOLUME 8.1 fl (7.5-11.1); PLATELET COUNT 196 K/MM3 (134-434); RBC 3.82 M/mm3 (4.00-5.60); RDW 19.1 % (11.9-15.9); WHITE BLOOD COUNT 8.3 K/mm3 (4.0-10.0)
[2018-09-22 08:09] LABS: ANION GAP 5 MMOL/L (8-16); BLOOD UREA NITROGEN 25 mg/dL (7-18); CALCIUM 8.1 mg/dL (8.5-10.1); CHLORIDE 105 mmol/L (98-107); CO2 31 mmol/L (21-32); GLUCOSE,RANDOM 68 mg/dL (74-106); POTASSIUM 4.5 mmol/L (3.5-5.1); SODIUM 140 mmol/L (136-145)
[2018-09-22] MEDS ORDERED: CEFEPIME HCL 1 GM VIAL (RESTRICTED TO ID) ONE ×2 (10:06→21:58)
[2018-09-22] MEDS ORDERED: PT OWN MED DRAWER 7, Y5N ONE (10:06)
[2018-09-22] MEDS: CEFEPIME 1 GM in DEXTROSE 5%-WATER 100 ML IVPB SCH ×2 (10:11→22:43)
[2018-09-22] MEDS: BUDESONIDE/FORMETEROL FUMARATE 160/4.5 mcg INHALER IH SCH ×2 (10:12→22:49)
[2018-09-22] MEDS: HEPARIN NA (PORCINE) 5,000 UNITS/ML 1ML VIAL SQ SCH ×2 (10:13→22:44)
[2018-09-22] MEDS: TIOTROPIUM BROMIDE 2.5 MCG (SPIRIVA) RESPIMAT INHALER IH SCH (10:13)
[2018-09-22] MEDS: ASPIRIN 81 MG CHEWABLE TABLETS PO SCH (10:14)
[2018-09-22] MEDS: TORSEMIDE 10 MG TABLET PO SCH (10:14)
[2018-09-22] MEDS: CITALOPRAM HYDROBROMIDE 20 MG TABLET (FP) PO SCH (10:15)
[2018-09-22] MEDS: CLOPIDOGREL BISULFATE 75 MG TABLET (FP) PO SCH (10:15)
[2018-09-22] MEDS: MINERAL OIL/PET HY-PHL TOPICAL OINTMENT 454 GM JAR TP SCH ×2 (10:18→22:45)
[2018-09-22] MEDS: NYSTATIN/TRIAMCINOLONE TOPICAL OINTMENT 15 GM TUBE TP SCH ×2 (10:19→22:46)
[2018-09-22] MEDS: SODIUM CHLORIDE 1,000 ML IV SCH (10:19)
[2018-09-22] MEDS: LIDOCAINE 5% TOPICAL PATCH TP SCH (10:20)
[2018-09-22] MEDS: VANCOMYCIN 1,250 MG in DEXTROSE 5%-WATER - 250 ML IVPB SCH (15:51)
--- NOTE | 2018-09-22 16:24 | PN ---
Progress Note, Physician History of Present Illness: Pt w/o fever, chills, SOB, CP, abd pain, diarrhea. Sleepy, taking an after lunch nap, on BIPAP - Current Medication List Current Medications: Active Medications Acetaminophen (Tylenol -) 650 mg PO Q6H PRN PRN Reason: PAIN LEVEL 1-5 Last Admin: 09/18/18 09:50 Dose: 650 mg Albuterol Sulfate (Ventolin 0.083% Nebulizer Soln -) 1 amp NEB Q6H PRN PRN Reason: SHORT OF BREATH/WHEEZING Aspirin (Asa -) 81 mg PO DAILY [facility] Last Admin: 09/22/18 10:14 Dose: 81 mg Atorvastatin Calcium (Lipitor -) 20 mg PO HS [facility] Last Admin: 09/21/18 22:04 Dose: 20 mg Budesonide/Formoterol Fumarate (Symbicort 160/4.5mcg -) 2 puff IH BID [facility] Last Admin: 09/22/18 10:12 Dose: 2 puff Citalopram Hydrobromide (Celexa -) 40 mg PO DAILY [facility] Last Admin: 09/22/18 10:15 Dose: 40 mg Clopidogrel Bisulfate (Plavix -) 75 mg PO DAILY [facility] Last Admin: 09/22/18 10:15 Dose: 75 mg Dextrose (D50w (Vial) -) 25 gm IVPUSH PRN PRN PRN Reason: HYPOGLYCEMIA Last Admin: 09/19/18 02:50 Dose: 25 gm Emollient Ointment (Aquaphor -) 1 applic TP BID [facility] Last Admin: 09/22/18 10:18 Dose: 1 applic Heparin Sodium (Porcine) (Heparin -) 5,000 unit SQ BID [facility] Last Admin: 09/22/18 10:13 Dose: 5,000 unit Sodium Chloride (Normal Saline -) 1,000 mls @ 50 mls/hr IV ASDIR [facility] Last Admin: 09/22/18 10:19 Dose: 50 mls/hr Cefepime HCl 1 gm/ Dextrose 100 mls @ 100 mls/hr IVPB BID [facility]; Protocol Last Admin: 09/22/18 10:11 Dose: 100 mls/hr Vancomycin HCl 1,250 mg/ (Dextrose) 250 mls @ 250 mls/2 hr IVPB Q24H [facility]; Protocol Last Admin: 09/22/18 15:51 Dose: 250 mls/2 hr Insulin Aspart (Novolog Vial Sliding Scale -) 1 vial SQ ACHS [facility]; Protocol Last Admin: 09/22/18 12:06 Dose: Not Given Insulin Detemir (Levemir Vial) 14 units SQ BIDI [facility] Last Admin: 09/22/18 06:56 Dose: Not Given Lidocaine (Lidoderm Patch -) 1 patch TP DAILY [facility] Last Admin: 09/22/18 10:20 Dose: 1 patch Miscellaneous (Lidoderm Patch Removal) 1 each MC DAILY@2200 [facility] Last Admin: 09/21/18 22:30 Dose: Not Given Nystatin/Triamcinolone Acetonide (Mycolog Ii Ointment -) 1 applic TP BID [facility] Last Admin: 09/22/18 10:19 Dose: 1 applic Oxycodone HCl (Roxicodone -) 5 mg PO Q6H PRN PRN Reason: PAIN LEVEL 6-10 Last Admin: 09/20/18 03:35 Dose: 5 mg Tiotropium [place] (Spiriva Respimat) 2 puff IH DAILY [facility] Last Admin: 09/22/18 10:13 Dose: 2 puff Torsemide (Demadex -) 10 mg PO DAILY [facility] Last Admin: 09/22/18 10:14 Dose: 10 mg - Objective Vital Signs: Vital Signs Temperature 98.2 F 09/22/18 14:53 Pulse Rate 61 09/22/18 14:53 Respiratory Rate 20 09/22/18 14:53 Blood Pressure 142/75 09/22/18 14:53 O2 Sat by Pulse Oximetry (%) 98 09/22/18 09:00 Constitutional: Yes: No Distress, Calm Cardiovascular: Yes: Regular Rate and Rhythm, S1, S2 Respiratory: Yes: Regular, CTA Bilaterally. No: Rales Gastrointestinal: Yes: Normal Bowel Sounds, Soft. No: Tenderness Extremities: Yes: Other (both legs with clean dressing) Edema: Yes Neurological: Yes: Alert, Oriented Labs: CBC, BMP 09/22/18 06:00 09/22/18 06:00 Problem List - Problems (1) Bilateral lower leg cellulitis Code(s): L03.116 - CELLULITIS OF LEFT LOWER LIMB; L03.115 - CELLULITIS OF RIGHT LOWER LIMB (2) Chronic venous stasis dermatitis of both lower extremities Code(s): I83.11 - VARICOSE VEINS OF RIGHT LOWER EXTREMITY WITH INFLAMMATION; I83.12 - VARICOSE VEINS OF LEFT LOWER EXTREMITY WITH INFLAMMATION (3) COPD (chronic obstructive pulmonary disease) Code(s): J44.9 - CHRONIC OBSTRUCTIVE PULMONARY DISEASE, UNSPECIFIED Qualifiers: COPD type: COPD with acute exacerbation Qualified Code(s): J44.1 - Chronic obstructive pulmonary disease with (acute) exacerbation (4) CVA (cerebral vascular accident) Code(s): I63.9 - CEREBRAL INFARCTION, UNSPECIFIED (5) Diabetes mellitus Assessment/Plan: Pt is noncompliant with diet (asking frequently for crackers, fruit juice; yesterday he was drinking OJ -second cup; when I explained to him that should avoid it, considering that interfere with controlling his DM, he dismissed my concerns as unrealistic) Code(s): E11.9 - TYPE 2 DIABETES MELLITUS WITHOUT COMPLICATIONS (6) Karla rash of groin Code(s): B37.89 - OTHER SITES OF CANDIDIASIS (7) CRF (chronic renal failure) Code(s): N18.9 - CHRONIC KIDNEY DISEASE, UNSPECIFIED (8) Obesity Code(s): E66.9 - OBESITY, UNSPECIFIED Qualifiers: Obesity classification: unspecified obesity classification Assessment/Plan IV Cefepime IV Vanco ID, Vasc SX consults are appreciated. Continue local care. To f/u AM labs
[2018-09-22] MEDS ORDERED: DEXTROSE 5%-WATER 100 ML IVPB ONE (21:58)
[2018-09-22] MEDS: ATORVASTATIN CA 20 MG TABLET (FP) PO SCH (22:44)
[2018-09-22] MEDS: LIDOCAINE PATCH REMOVAL MC SCH (22:46)
[2018-09-23] MEDS: SODIUM CHLORIDE 1,000 ML IV SCH (04:26)
[2018-09-23] MEDS: oxyCODONE HCL 5 MG TABLET PO PRN ×2 (04:26→21:10)
[2018-09-23] MEDS: ACETAMINOPHEN 325 MG TABLET (FP) PO PRN ×2 (05:16→21:11)
[2018-09-23] MEDS: INSULIN SLIDING SCALE (NOVOLOG) 1 VIAL SQ SCH ×4 (06:45→21:11)
[2018-09-23 07:53] LABS: HEMATOCRIT 27.6 % (35.4-49); HEMOGLOBIN 8.4 GM/dL (11.7-16.9); MCH 23.7 pg (25.7-33.7); MCHC 30.4 g/dl (32.0-35.9); MEAN CELL VOLUME 78.2 fl (80-96); MEAN PLT VOLUME 8.2 fl (7.5-11.1); PLATELET COUNT 195 K/MM3 (134-434); RBC 3.53 M/mm3 (4.00-5.60); RDW 18.9 % (11.9-15.9); WHITE BLOOD COUNT 7.8 K/mm3 (4.0-10.0)
[2018-09-23 08:29] LABS: ANION GAP 5 MMOL/L (8-16); BLOOD UREA NITROGEN 23 mg/dL (7-18); CALCIUM 7.7 mg/dL (8.5-10.1); CHLORIDE 105 mmol/L (98-107); CO2 31 mmol/L (21-32); CREATININE 0.9 mg/dL (0.55-1.3); GLUCOSE,RANDOM 126 mg/dL (74-106); POTASSIUM 4.3 mmol/L (3.5-5.1); SODIUM 140 mmol/L (136-145)
[2018-09-23] MEDS ORDERED: DEXTROSE 5%-WATER 100 ML IVPB ONE ×2 (10:16→20:56)
[2018-09-23] MEDS ORDERED: CEFEPIME HCL 1 GM VIAL (RESTRICTED TO ID) ONE ×2 (10:16→20:56)
[2018-09-23] MEDS: BUDESONIDE/FORMETEROL FUMARATE 160/4.5 mcg INHALER IH SCH ×2 (10:22→21:11)
[2018-09-23] MEDS: LIDOCAINE 5% TOPICAL PATCH TP SCH (10:23)
[2018-09-23] MEDS: CEFEPIME 1 GM in DEXTROSE 5%-WATER 100 ML IVPB SCH ×2 (10:24→21:09)
[2018-09-23] MEDS: TORSEMIDE 10 MG TABLET PO SCH (10:28)
[2018-09-23] MEDS: CITALOPRAM HYDROBROMIDE 20 MG TABLET (FP) PO SCH (10:31)
[2018-09-23] MEDS: ASPIRIN 81 MG CHEWABLE TABLETS PO SCH (10:31)
[2018-09-23] MEDS: CLOPIDOGREL BISULFATE 75 MG TABLET (FP) PO SCH (10:31)
[2018-09-23] MEDS: HEPARIN NA (PORCINE) 5,000 UNITS/ML 1ML VIAL SQ SCH ×2 (10:31→21:10)
[2018-09-23] MEDS: NYSTATIN/TRIAMCINOLONE TOPICAL OINTMENT 15 GM TUBE TP SCH ×2 (10:33→21:11)
[2018-09-23] MEDS: MINERAL OIL/PET HY-PHL TOPICAL OINTMENT 454 GM JAR TP SCH ×2 (10:34→21:11)
[2018-09-23] MEDS: TIOTROPIUM BROMIDE 2.5 MCG (SPIRIVA) RESPIMAT INHALER IH SCH (10:34)
[2018-09-23] MEDS: VANCOMYCIN 1,250 MG in DEXTROSE 5%-WATER - 250 ML IVPB SCH (14:43)
--- NOTE | 2018-09-23 14:54 | PN ---
Progress Note, Physician History of Present Illness: Pt w/o fever, chills, SOB, CP, abd pain, diarrhea. Pt with feet pain, on and off (for a long time) - Current Medication List Current Medications: Active Medications Acetaminophen (Tylenol -) 650 mg PO Q6H PRN PRN Reason: PAIN LEVEL 1-5 Last Admin: 09/23/18 05:16 Dose: 650 mg Aspirin (Asa -) 81 mg PO DAILY [facility] Last Admin: 09/23/18 10:31 Dose: 81 mg Atorvastatin Calcium (Lipitor -) 20 mg PO HS [facility] Last Admin: 09/22/18 22:44 Dose: 20 mg Budesonide/Formoterol Fumarate (Symbicort 160/4.5mcg -) 2 puff IH BID [facility] Last Admin: 09/23/18 10:22 Dose: 2 puff Citalopram Hydrobromide (Celexa -) 40 mg PO DAILY [facility] Last Admin: 09/23/18 10:31 Dose: 40 mg Clopidogrel Bisulfate (Plavix -) 75 mg PO DAILY [facility] Last Admin: 09/23/18 10:31 Dose: 75 mg Dextrose (D50w (Vial) -) 25 gm IVPUSH PRN PRN PRN Reason: HYPOGLYCEMIA Last Admin: 09/19/18 02:50 Dose: 25 gm Emollient Ointment (Aquaphor -) 1 applic TP BID [facility] Last Admin: 09/23/18 10:34 Dose: 1 applic Heparin Sodium (Porcine) (Heparin -) 5,000 unit SQ BID [facility] Last Admin: 09/23/18 10:31 Dose: 5,000 unit Sodium Chloride (Normal Saline -) 1,000 mls @ 50 mls/hr IV ASDIR [facility] Last Admin: 09/23/18 04:26 Dose: 50 mls/hr Cefepime HCl 1 gm/ Dextrose 100 mls @ 100 mls/hr IVPB BID [facility]; Protocol Last Admin: 09/23/18 10:24 Dose: 100 mls/hr Vancomycin HCl 1,250 mg/ (Dextrose) 250 mls @ 250 mls/2 hr IVPB Q24H [facility]; Protocol Last Admin: 09/23/18 14:43 Dose: 250 mls/2 hr Insulin Aspart (Novolog Vial Sliding Scale -) 1 vial SQ ACHS [facility]; Protocol Last Admin: 09/23/18 12:06 Dose: Not Given Lidocaine (Lidoderm Patch -) 1 patch TP DAILY [facility] Last Admin: 09/23/18 10:23 Dose: 1 patch Miscellaneous (Lidoderm Patch Removal) 1 each MC DAILY@2200 [facility] Last Admin: 09/22/18 22:46 Dose: 1 each Nystatin/Triamcinolone Acetonide (Mycolog Ii Ointment -) 1 applic TP BID [facility] Last Admin: 09/23/18 10:33 Dose: 1 applic Oxycodone HCl (Roxicodone -) 5 mg PO Q6H PRN PRN Reason: PAIN LEVEL 6-10 Last Admin: 09/23/18 04:26 Dose: 5 mg Tiotropium [place] (Spiriva Respimat) 2 puff IH DAILY [facility] Last Admin: 09/23/18 10:34 Dose: 2 puff Torsemide (Demadex -) 10 mg PO DAILY [facility] Last Admin: 09/23/18 10:28 Dose: 10 mg - Objective Vital Signs: Vital Signs Temperature 98.2 F 09/23/18 10:37 Pulse Rate 60 09/23/18 10:37 Respiratory Rate 20 09/23/18 10:37 Blood Pressure 130/70 09/23/18 10:37 O2 Sat by Pulse Oximetry (%) 98 09/23/18 09:00 Constitutional: Yes: No Distress, Calm Cardiovascular: Yes: Regular Rate and Rhythm, S1, S2 Respiratory: Yes: Regular, CTA Bilaterally. No: Rales Gastrointestinal: Yes: Normal Bowel Sounds, Soft, Abdomen, Obese. No: Tenderness Extremities: Yes: Other (clean dressing) Neurological: Yes: Alert, Oriented Labs: CBC, BMP 09/23/18 06:30 09/23/18 06:30 Problem List - Problems (1) Bilateral lower leg cellulitis Code(s): L03.116 - CELLULITIS OF LEFT LOWER LIMB; L03.115 - CELLULITIS OF RIGHT LOWER LIMB (2) Chronic venous stasis dermatitis of both lower extremities Code(s): I83.11 - VARICOSE VEINS OF RIGHT LOWER EXTREMITY WITH INFLAMMATION; I83.12 - VARICOSE VEINS OF LEFT LOWER EXTREMITY WITH INFLAMMATION (3) COPD (chronic obstructive pulmonary disease) Code(s): J44.9 - CHRONIC OBSTRUCTIVE PULMONARY DISEASE, UNSPECIFIED Qualifiers: COPD type: COPD with acute exacerbation Qualified Code(s): J44.1 - Chronic obstructive pulmonary disease with (acute) exacerbation (4) CVA (cerebral vascular accident) Code(s): I63.9 - CEREBRAL INFARCTION, UNSPECIFIED (5) Diabetes mellitus Code(s): E11.9 - TYPE 2 DIABETES MELLITUS WITHOUT COMPLICATIONS (6) Karla rash of groin Code(s): B37.89 - OTHER SITES OF CANDIDIASIS (7) CRF (chronic renal failure) Code(s): N18.9 - CHRONIC KIDNEY DISEASE, UNSPECIFIED (8) Obesity Code(s): E66.9 - OBESITY, UNSPECIFIED Qualifiers: Obesity classification: unspecified obesity classification Assessment/Plan IV Cefepime IV Vanco ID, Vasc SX consults are appreciated. Continue local care. To f/u AM labs; monitor H/H
[2018-09-23] MEDS: ATORVASTATIN CA 20 MG TABLET (FP) PO SCH (21:11)
[2018-09-23] MEDS: LIDOCAINE PATCH REMOVAL MC SCH (21:11)
[2018-09-24] MEDS: INSULIN SLIDING SCALE (NOVOLOG) 1 VIAL SQ SCH ×4 (06:21→22:43)
[2018-09-24 07:40] LABS: HEMATOCRIT 30.1 % (35.4-49); MCH 23.7 pg (25.7-33.7); MCHC 29.8 g/dl (32.0-35.9); MEAN CELL VOLUME 79.4 fl (80-96); MEAN PLT VOLUME 8.3 fl (7.5-11.1); PLATELET COUNT 195 K/MM3 (134-434); RBC 3.79 M/mm3 (4.00-5.60); RDW 18.7 % (11.9-15.9); WHITE BLOOD COUNT 6.2 K/mm3 (4.0-10.0)
[2018-09-24 08:11] LABS: ANION GAP 6 MMOL/L (8-16); BLOOD UREA NITROGEN 23 mg/dL (7-18); CALCIUM 7.8 mg/dL (8.5-10.1); CHLORIDE 105 mmol/L (98-107); CO2 31 mmol/L (21-32); CREATININE 0.9 mg/dL (0.55-1.3); GLUCOSE,RANDOM 77 mg/dL (74-106); POTASSIUM 4.3 mmol/L (3.5-5.1); SODIUM 142 mmol/L (136-145)
[2018-09-24] MEDS ORDERED: PT OWN MED DRAWER 7, Y5N ONE ×2 (10:03→22:34)
[2018-09-24] MEDS ORDERED: CEFEPIME HCL 1 GM VIAL (RESTRICTED TO ID) ONE (10:03)
[2018-09-24] MEDS ORDERED: DEXTROSE 5%-WATER 100 ML IVPB ONE (10:04)
[2018-09-24] MEDS: ASPIRIN 81 MG CHEWABLE TABLETS PO SCH (10:05)
[2018-09-24] MEDS: CITALOPRAM HYDROBROMIDE 20 MG TABLET (FP) PO SCH (10:05)
[2018-09-24] MEDS: CLOPIDOGREL BISULFATE 75 MG TABLET (FP) PO SCH (10:05)
[2018-09-24] MEDS: TORSEMIDE 10 MG TABLET PO SCH (10:06)
[2018-09-24] MEDS: BUDESONIDE/FORMETEROL FUMARATE 160/4.5 mcg INHALER IH SCH ×2 (10:06→22:40)
[2018-09-24] MEDS: TIOTROPIUM BROMIDE 2.5 MCG (SPIRIVA) RESPIMAT INHALER IH SCH (10:06)
[2018-09-24] MEDS: LIDOCAINE 5% TOPICAL PATCH TP SCH (10:06)
[2018-09-24] MEDS: HEPARIN NA (PORCINE) 5,000 UNITS/ML 1ML VIAL SQ SCH ×2 (10:06→22:40)
[2018-09-24] MEDS: CEFEPIME 1 GM in DEXTROSE 5%-WATER 100 ML IVPB SCH (10:06)
[2018-09-24] MEDS: NYSTATIN/TRIAMCINOLONE TOPICAL OINTMENT 15 GM TUBE TP SCH ×2 (10:07→22:40)
[2018-09-24] MEDS: MINERAL OIL/PET HY-PHL TOPICAL OINTMENT 454 GM JAR TP SCH ×2 (10:07→22:40)
[2018-09-24] MEDS: VANCOMYCIN 1,250 MG in DEXTROSE 5%-WATER - 250 ML IVPB SCH (14:22)
--- NOTE | 2018-09-24 15:11 | PN ---
Progress Note (short form) - Note Progress Note: no complaints Vital Signs Period Temp Pulse Resp BP Sys/Mullen Pulse Ox Last 24 Hr 97.6 F-98.6 F 68-90 18-20 122-137/63-84 96-98 cor-rrr lungs clear abd soft,nt ext dressings removed, thigh erythema resolved, legs have minimal erythema and peeling skin CBC, BMP 09/24/18 06:15 09/24/18 06:15 Microbiology 09/17/18 09:25 Blood - Peripheral Venous Blood Culture - Final NO GROWTH AFTER 5 DAYS INCUBATION 09/17/18 22:50 Blood - Peripheral Venous Blood Culture - Final NO GROWTH AFTER 5 DAYS INCUBATION 09/17/18 23:00 Cellulitis Gram Stain - Final 09/17/18 23:00 Cellulitis Wound Culture - Final Diphtheroid/Corynebacterium Pseudomonas Aeruginosa Enterococcus Faecalis 09/19/18 06:10 Random Vancomycin 15.0 L a/p cellulitis-resolved venous stasis history of MRSA/pseudomonas inthe past-highly resistant pseudomonas COPD on bipap augmentin allergy theresa-resolved d/c antibiotics continue local treatment per wound care Problem List - Problems (1) Cellulitis of leg Code(s): L03.119 - CELLULITIS OF UNSPECIFIED PART OF LIMB Qualifiers: Laterality: unspecified laterality Qualified Code(s): L03.119 - Cellulitis of unspecified part of limb (2) THERESA (acute kidney injury) Code(s): N17.9 - ACUTE KIDNEY FAILURE, UNSPECIFIED (3) Venous stasis Code(s): I87.8 - OTHER SPECIFIED DISORDERS OF VEINS (4) Allergic reaction to Augmentin Code(s): Z88.1 - ALLERGY STATUS TO OTHER ANTIBIOTIC AGENTS STATUS
--- NOTE | 2018-09-24 16:24 | PN ---
Progress Note, Physician History of Present Illness: Pt w/o fever, chills, SOB, CP, abd pain, diarrhea. Pt with feet pain, on and off (for a long time) - Current Medication List Current Medications: Active Medications Acetaminophen (Tylenol -) 650 mg PO Q6H PRN PRN Reason: PAIN LEVEL 1-5 Last Admin: 09/23/18 21:11 Dose: 650 mg Aspirin (Asa -) 81 mg PO DAILY [facility] Last Admin: 09/24/18 10:05 Dose: 81 mg Atorvastatin Calcium (Lipitor -) 20 mg PO HS [facility] Last Admin: 09/23/18 21:11 Dose: 20 mg Budesonide/Formoterol Fumarate (Symbicort 160/4.5mcg -) 2 puff IH BID [facility] Last Admin: 09/24/18 10:06 Dose: 2 puff Citalopram Hydrobromide (Celexa -) 40 mg PO DAILY [facility] Last Admin: 09/24/18 10:05 Dose: 40 mg Clopidogrel Bisulfate (Plavix -) 75 mg PO DAILY [facility] Last Admin: 09/24/18 10:05 Dose: 75 mg Dextrose (D50w (Vial) -) 25 gm IVPUSH PRN PRN PRN Reason: HYPOGLYCEMIA Last Admin: 09/19/18 02:50 Dose: 25 gm Emollient Ointment (Aquaphor -) 1 applic TP BID [facility] Last Admin: 09/24/18 10:07 Dose: 1 applic Heparin Sodium (Porcine) (Heparin -) 5,000 unit SQ BID [facility] Last Admin: 09/24/18 10:06 Dose: 5,000 unit Sodium Chloride (Normal Saline -) 1,000 mls @ 50 mls/hr IV ASDIR [facility] Last Admin: 09/23/18 04:26 Dose: 50 mls/hr Insulin Aspart (Novolog Vial Sliding Scale -) 1 vial SQ ACHS [facility]; Protocol Last Admin: 09/24/18 12:34 Dose: Not Given Lidocaine (Lidoderm Patch -) 1 patch TP DAILY [facility] Last Admin: 09/24/18 10:06 Dose: 1 patch Miscellaneous (Lidoderm Patch Removal) 1 each MC DAILY@2200 [facility] Last Admin: 09/23/18 21:11 Dose: 1 each Nystatin/Triamcinolone Acetonide (Mycolog Ii Ointment -) 1 applic TP BID [facility] Last Admin: 09/24/18 10:07 Dose: 1 applic Oxycodone HCl (Roxicodone -) 5 mg PO Q6H PRN PRN Reason: PAIN LEVEL 6-10 Last Admin: 09/23/18 21:10 Dose: 5 mg Tiotropium [place] (Spiriva Respimat) 2 puff IH DAILY [facility] Last Admin: 09/24/18 10:06 Dose: 2 puff Torsemide (Demadex -) 10 mg PO DAILY [facility] Last Admin: 09/24/18 10:06 Dose: 10 mg - Objective Vital Signs: Vital Signs Temperature 97.6 F 09/24/18 10:32 Pulse Rate 90 09/24/18 10:32 Respiratory Rate 18 09/24/18 10:32 Blood Pressure 131/68 09/24/18 10:32 O2 Sat by Pulse Oximetry (%) 96 09/24/18 12:10 Constitutional: Yes: No Distress, Calm Cardiovascular: Yes: Regular Rate and Rhythm, S1, S2 Respiratory: Yes: Regular, CTA Bilaterally. No: Rales Gastrointestinal: Yes: Normal Bowel Sounds, Soft, Abdomen, Obese. No: Tenderness Extremities: Yes: Other (clean dressing) Neurological: Yes: Alert, Oriented Labs: CBC, BMP 09/24/18 06:15 09/24/18 06:15 Problem List - Problems (1) Bilateral lower leg cellulitis Code(s): L03.116 - CELLULITIS OF LEFT LOWER LIMB; L03.115 - CELLULITIS OF RIGHT LOWER LIMB (2) Chronic venous stasis dermatitis of both lower extremities Code(s): I83.11 - VARICOSE VEINS OF RIGHT LOWER EXTREMITY WITH INFLAMMATION; I83.12 - VARICOSE VEINS OF LEFT LOWER EXTREMITY WITH INFLAMMATION (3) COPD (chronic obstructive pulmonary disease) Code(s): J44.9 - CHRONIC OBSTRUCTIVE PULMONARY DISEASE, UNSPECIFIED Qualifiers: COPD type: COPD with acute exacerbation Qualified Code(s): J44.1 - Chronic obstructive pulmonary disease with (acute) exacerbation (4) CVA (cerebral vascular accident) Code(s): I63.9 - CEREBRAL INFARCTION, UNSPECIFIED (5) Diabetes mellitus Code(s): E11.9 - TYPE 2 DIABETES MELLITUS WITHOUT COMPLICATIONS (6) Karla rash of groin Code(s): B37.89 - OTHER SITES OF CANDIDIASIS (7) CRF (chronic renal failure) Code(s): N18.9 - CHRONIC KIDNEY DISEASE, UNSPECIFIED (8) Obesity Code(s): E66.9 - OBESITY, UNSPECIFIED Qualifiers: Obesity classification: unspecified obesity classification Assessment/Plan Antibiotics were DC'ed. Continue daily local care. ID, Vasc SX consults are appreciated. Pt's condition was d/w Dr. Norman H?H is slightly up. [place] (both, pt and his agreed). Pt's states that pt was hallucinating (not notified by myself, nor hopital staff) on Monday and over the phone; to call Physchiatry in consult.. Consider DC to [place] tomorrow.
--- NOTE | 2018-09-24 17:29 | CON.PSY ---
Psychiatry Consult Chief Complaint: IU am not seeing any things, I dont know why my told you that. - Previous Psychiatric Treatment Outpatient: Less than 6 mos ago Inpatient: None - Reason for Previous Treatment Reason for Previous Treatment: Major Depression - Current Medications Current Medications: Active Medications Acetaminophen (Tylenol -) 650 mg PO Q6H PRN PRN Reason: PAIN LEVEL 1-5 Last Admin: 09/23/18 21:11 Dose: 650 mg Aspirin (Asa -) 81 mg PO DAILY [facility] Last Admin: 09/24/18 10:05 Dose: 81 mg Atorvastatin Calcium (Lipitor -) 20 mg PO HS [facility] Last Admin: 09/23/18 21:11 Dose: 20 mg Budesonide/Formoterol Fumarate (Symbicort 160/4.5mcg -) 2 puff IH BID [facility] Last Admin: 09/24/18 10:06 Dose: 2 puff Citalopram Hydrobromide (Celexa -) 40 mg PO DAILY [facility] Last Admin: 09/24/18 10:05 Dose: 40 mg Clopidogrel Bisulfate (Plavix -) 75 mg PO DAILY [facility] Last Admin: 09/24/18 10:05 Dose: 75 mg Dextrose (D50w (Vial) -) 25 gm IVPUSH PRN PRN PRN Reason: HYPOGLYCEMIA Last Admin: 09/19/18 02:50 Dose: 25 gm Emollient Ointment (Aquaphor -) 1 applic TP BID [facility] Last Admin: 09/24/18 10:07 Dose: 1 applic Heparin Sodium (Porcine) (Heparin -) 5,000 unit SQ BID [facility] Last Admin: 09/24/18 10:06 Dose: 5,000 unit Sodium Chloride (Normal Saline -) 1,000 mls @ 50 mls/hr IV ASDIR [facility] Last Admin: 09/23/18 04:26 Dose: 50 mls/hr Insulin Aspart (Novolog Vial Sliding Scale -) 1 vial SQ ACHS [facility]; Protocol Last Admin: 09/24/18 17:05 Dose: Not Given Lidocaine (Lidoderm Patch -) 1 patch TP DAILY [facility] Last Admin: 09/24/18 10:06 Dose: 1 patch Miscellaneous (Lidoderm Patch Removal) 1 each MC DAILY@2200 [facility] Last Admin: 09/23/18 21:11 Dose: 1 each Nystatin/Triamcinolone Acetonide (Mycolog Ii Ointment -) 1 applic TP BID [facility] Last Admin: 09/24/18 10:07 Dose: 1 applic Oxycodone HCl (Roxicodone -) 5 mg PO Q6H PRN PRN Reason: PAIN LEVEL 6-10 Last Admin: 09/23/18 21:10 Dose: 5 mg Tiotropium [place] (Spiriva Respimat) 2 puff IH DAILY [facility] Last Admin: 09/24/18 10:06 Dose: 2 puff Torsemide (Demadex -) 10 mg PO DAILY [facility] Last Admin: 09/24/18 10:06 Dose: 10 mg - Allergies Allergies: Allergies Allergy/AdvReac Type Severity Reaction Status Date / Time amoxicillin trihydrate Allergy Unknown Verified 07/10/18 13:29 [From Augmentin] potassium clavulanate Allergy Unknown Verified 07/10/18 13:29 [From Augmentin] - Current Living Status Usual Living Arrangement: With Spouse - Current Mental Status Evaluation Appearance: Well Groomed, Disheveled Attitude: Uncooperative - Affect Affect: Expansive Appropriateness: Appropriate to Content - Mood Mood: Irritable - Speech/Language Expressive: Coherent - Psychomotor Activity Psychomotor Activity: Hyperactive - Thought Process Thought Process: Intact - Thought Content Hallucinations: Absent Delusions: Absent - Self Perception Self Perception: No Impairment - Cognition Attention: Alert Orientation: Time Memory, Immediate Recall: Intact Memory, Short Term: 2/3 Memory, Remote with Promptin/3 - Concentration Serial Sevens Intact: Yes Simple Calculations Intact: No - Abstraction Proverb Interpretation: Intact Judgement: Minimally Impaired - Insight Insight: Intact - Impulse Control Impulse Control: Minimally Impaired - Suicidal Ideation Suicidal Ideation: No - Homicidal Ideation Homicidal Ideation: No Assessment/Plan 1) mwill reduce Celexa to 20mg po od.
[2018-09-24] MEDS ORDERED: ALBUTEROL SO4 0.083% IH SOL 2.5 MG/3 ML VIAL.NEB. NEB ONE (21:57)
[2018-09-24] MEDS: ATORVASTATIN CA 20 MG TABLET (FP) PO SCH (22:40)
[2018-09-24] MEDS: LIDOCAINE PATCH REMOVAL MC SCH (22:41)
[2018-09-24] MEDS: SODIUM CHLORIDE 1,000 ML IV SCH (23:09)
[2018-09-25 06:08] VITALS: BP 140/66; PULSE 75; TEMP 97.5
[2018-09-25] MEDS: INSULIN SLIDING SCALE (NOVOLOG) 1 VIAL SQ SCH ×3 (06:49→16:45)
--- NOTE | 2018-09-25 09:58 | DS ---
Physical Examination Vital Signs: Vital Signs Temperature 97.5 F L 09/25/18 05:55 Pulse Rate 75 09/25/18 05:55 Respiratory Rate 20 09/25/18 05:55 Blood Pressure 140/66 09/25/18 05:55 O2 Sat by Pulse Oximetry (%) 96 09/25/18 09:47 Findings/Remarks: Pt w/o fever, chill, cough, CP, SOB, abd pain, diarrhea. PT w/o hallucinations (per pt's nurse). Constitutional: Yes: No Distress, Calm Cardiovascular: Yes: Regular Rate and Rhythm, S1, S2 Respiratory: Yes: Regular, CTA Bilaterally. No: Rales Gastrointestinal: Yes: Normal Bowel Sounds, Soft, Abdomen, Obese. No: Tenderness Extremities: Yes: Other (clean dressing) Neurological: Yes: Alert, Oriented, Other (no confusion, no hallucinations) Labs: CBC, BMP 09/24/18 06:15 09/24/18 06:15 Discharge Summary Reason For Visit: CELLULITIS OF LOWER EXTREMITY (MRSA) Current Active Problems Allergic reaction to Augmentin (Acute) Bilateral lower leg cellulitis (Acute) CRF (chronic renal failure) (Acute) Cellulitis of leg (Acute) Venous stasis (Acute) Procedures: Principal: CXR Hospital Course: Pt with known HX/o COPD, on BIPAP, LE cellulitis, was transferred from Rehab for LE cellulitis. Pt was started on IV Abtx, was seen by ID (Dr. Norman) and Vascular Sx (Dr. Cordon). Pt improved with treatment. Pt was seen by Psychiatry (Dr. Jennings), as his reported that pt had hallucinations on Monday, not observed by hospital staff; ptwas cleared by psychiatry. To DC pt to rehab. Condition: Improved - Instructions Diet, Activity, Other Instructions: Resume diet. Daily LE local Care. Referrals: Noemy Valle [Primary Care Provider] - Teofilo Cordon MD [Staff Physician] - (within one week) Disposition: INTERMEDIATE FACILITY - Home Medications Comprehensive Discharge Medication List: Ambulatory Orders See DC instructions
[2018-09-25] MEDS ORDERED: CITALOPRAM HYDROBROMIDE 20 MG TABLET (FP) PO SCH (10:00)
[2018-09-25] MEDS ORDERED: PT OWN MED DRAWER 7, Y5N ONE (10:11)
[2018-09-25] MEDS: ASPIRIN 81 MG CHEWABLE TABLETS PO SCH (10:36)
[2018-09-25] MEDS: CLOPIDOGREL BISULFATE 75 MG TABLET (FP) PO SCH (10:36)
[2018-09-25] MEDS: BUDESONIDE/FORMETEROL FUMARATE 160/4.5 mcg INHALER IH SCH (10:36)
[2018-09-25] MEDS: TIOTROPIUM BROMIDE 2.5 MCG (SPIRIVA) RESPIMAT INHALER IH SCH (10:36)
[2018-09-25] MEDS: NYSTATIN/TRIAMCINOLONE TOPICAL OINTMENT 15 GM TUBE TP SCH (10:37)
[2018-09-25] MEDS: LIDOCAINE 5% TOPICAL PATCH TP SCH (10:37)
[2018-09-25] MEDS: MINERAL OIL/PET HY-PHL TOPICAL OINTMENT 454 GM JAR TP SCH (10:38)
[2018-09-25] MEDS: TORSEMIDE 10 MG TABLET PO SCH (12:07)
== END 2018-09-25 18:50 | DRG 603 ==
LOC: JER 20:15 → JERBED 23:46 → UNDOADMIN 09-18 01:44 → JERBED 09-18 01:44 → J6S 09-18 03:30
PROVIDERS: ADMIT Specialist; ATTEND Specialist
PROC: 5A09457 Assistance with Respiratory Ventilation, 24-96 Consecutive Hours, Continuous Positive Airway Pressure (ICD-10-PCS; principal; 2018-09-18)
DX: L03.116 Cellulitis of left lower limb (principal); L97.918 Non-pressure chronic ulcer of unspecified part of right lower leg with other specified severity; B37.89 Other sites of candidiasis; N17.9 Acute kidney failure, unspecified; J96.10 Chronic respiratory failure, unspecified whether with hypoxia or hypercapnia; L03.115 Cellulitis of right lower limb; I10 Essential (primary) hypertension; E78.5 Hyperlipidemia, unspecified; I25.10 Atherosclerotic heart disease of native coronary artery without angina pectoris; E11.51 Type 2 diabetes mellitus with diabetic peripheral angiopathy without gangrene; J44.9 Chronic obstructive pulmonary disease, unspecified; F32.9 Major depressive disorder, single episode, unspecified; E66.9 Obesity, unspecified; Z68.38 Body mass index [BMI] 38.0-38.9, adult; E11.622 Type 2 diabetes mellitus with other skin ulcer; I83.11 Varicose veins of right lower extremity with inflammation; I83.12 Varicose veins of left lower extremity with inflammation; I12.9 Hypertensive chronic kidney disease with stage 1 through stage 4 chronic kidney disease, or unspecified chronic kidney disease; E11.22 Type 2 diabetes mellitus with diabetic chronic kidney disease; N18.9 Chronic kidney disease, unspecified; Z86.73 Personal history of transient ischemic attack (TIA), and cerebral infarction without residual deficits; Z88.1 Allergy status to other antibiotic agents; Z99.81 Dependence on supplemental oxygen; Z86.14 Personal history of Methicillin resistant Staphylococcus aureus infection
CPT/HCPCS: 36415; 80048; 80053; 82947; 82962; 83605; 85025; 85027; 87040; 87070; 87186; 87205; 93005; 93010; 94660; 99282-25; G0480; J1644; J7030

== ENCOUNTER 2018-10-09 14:12 | Inpatient (IN) | payer OTHER ==
--- NOTE | 2018-10-09 14:44 | PDOC ---
History of Present Illness <Karin Tao - Last Filed: 10/09/18 17:25> - History of Present Illness Initial Comments: 68yo M with history of hemorrhoids, cerebral infarction, DM, MARTIN, CKD, COPD who was sent from [facility] to the ED by his physician, Dr. Valle, for lab abnormalities. Patient has no acute complaints. He was last in this ED two days ago for bright red blood per rectum and he has chronic BLE wounds and cellulitis for which he takes antibiotics. Dr. Valle reports that the patient s potassium was >6 for which kayexylate was administered. Patient was then sent to this ED. No fevers, chills, headache, chest pain, or abdominal pain. <Juana Bonilla - Last Filed: 10/09/18 20:44> - General Chief Complaint: Revisit, Lab Variance Stated Complaint: Revisit, Lab Variance Time Seen by Provider: 10/09/18 14:39 Past History <Karin Tao - Last Filed: 10/09/18 17:25> - Past Medical History Anemia: No Cardiac Disorders: Yes (CAD, Left Fem-Pop Bypass) CVA: Yes (no deficit 5 years ago.) COPD: Yes CHF: No Dementia: No Diabetes: Yes GI Disorders: Yes Disorders: No HTN: Yes Hypercholesterolemia: Yes Liver Disease: No Seizures: No Thyroid Disease: No - Surgical History Abdominal Surgery: No Appendectomy: No Cardiac Surgery: Yes (LEFT FEM-POP BYPASS) Cholecystectomy: No Lung Surgery: No Neurologic Surgery: No Orthopedic Surgery: No - Immunization History Immunization Up to Date: No - Suicide/Smoking/Psychosocial Hx Smoking Status: Yes Smoking History: Former smoker Have you smoked in the past 12 months: No Number of Cigarettes Smoked Daily: 20 If you are a former smoker, when did you quit?: 6 months Information on smoking cessation initiated: No 'Breaking Loose' booklet given: 07/11/18 Hx Alcohol Use: No Drug/Substance Use Hx: No Substance Use Type: None Hx Substance Use Treatment: No <Juana Bonilla - Last Filed: 10/09/18 20:44> - Past Medical History Allergies/Adverse Reactions: Allergies Allergy/AdvReac Type Severity Reaction Status Date / Time amoxicillin trihydrate Allergy Unknown Verified 10/09/18 19:05 [From Augmentin] potassium clavulanate Allergy Unknown Verified 10/09/18 19:05 [From Augmentin] Home Medications: Ambulatory Orders Aspirin [ASA -] 81 mg PO DAILY 08/15/18 Atorvastatin Ca [Lipitor] 20 mg PO HS 08/15/18 Clopidogrel Bisulfate [Clopidogrel] 75 mg PO DAILY 08/15/18 Torsemide [Demadex -] 10 mg PO DAILY 08/15/18 Acetaminophen [Tylenol .Regular Strength -] 650 mg PO Q6H PRN tablet 08/24/18 Albuterol 0.083% Nebulizer [place]ala [Ventolin 0.083% Nebulizer Soln -] 1 amp NEB Q6H PRN amp 08/24/18 Budesonide/Formeterol Fumarate [SYMBICORT 160/4.5mcg -] 2 puff IH BID inhaler 08/24/18 Lidocaine 5% Patch [Lidoderm -] 1 patch TP DAILY patch 08/24/18 Lidocaine Patch Removal [Lidoderm Patch Removal] 1 each MC DAILY@2200 each 12/10 Mineral Oil/Pet Hy-Phl [Aquaphor -] 1 applic TP BID jar 08/24/18 Nystatin/Triamcinolone Top Oin [Mycolog II -] 1 applic TP BID applic 08/24/18 oxyCODONE HCL [Roxicodone -] 5 mg PO Q6H PRN #40 tablet MDD 4 08/24/18 Citalopram Hydrobromide [Celexa -] 20 mg PO DAILY tablet 09/25/18 Bismuth Tribromoph/Petrolatum [Xeroform Petrolatum Dress] 1 each TP DAILY Insulin Sliding Scale [Novolog Vial Sliding Scale -] 1 vial SQ ACHS PRN Nystatin Cream [Mycostatin] 1 applic TP BID 10/09/18 Pen Needle, Diabetic [Novofine Plus] 1 each MC ASDIR 10/09/18 Tiotropium [place] [Spiriva Respimat] 2 puff IH DAILY 10/09/18 Review of Systems - Review of Systems Comments:: Constitutional: no fever, no chills HEENT: no throat pain, no dysphagia Cardiovascular: no chest pain, no palpitations Respiratory: no cough, no shortness of breath Gastrointestinal: no abdominal pain, no nausea Genitourinary: no dysuria, no frequency Musculoskeletal: no myalgia, no arthralgia Skin: +cellulitis, +wounds Neurologic: no headache, no dizziness <Juana Bonilla - Last Filed: 10/09/18 20:44> *Physical Exam - Vital Signs Last Vital Signs Temp Pulse Resp BP Pulse Ox 98.6 F 57 L 23 H 124/47 L 93 L 10/09/18 14:13 10/09/18 14:13 10/09/18 14:13 10/09/18 14:13 10/09/18 14:13 <Karin Tao - Last Filed: 10/09/18 17:25> - Vital Signs Last Vital Signs Temp Pulse Resp BP Pulse Ox 98.6 F 57 L 23 H 124/47 L 93 L 10/09/18 14:13 10/09/18 14:13 10/09/18 14:13 10/09/18 14:13 10/09/18 14:13 - Physical Exam Comments: General: Awake, in no acute distress Head: No signs of trauma Eyes: EOMI, sclera anicteric Neck: Normal ROM, supple Lungs: Lungs clear, Normal breath sounds Cardio: Regular rhythm, S1 and S2 present Abdomen: Soft, nontender. No guarding, no rebound, no masses Extremities: Normal range of motion, Distal pulses present SKIN: Bilateral leg cellulitis and 3+ edema; dressings present over patient's wounds that are at his baseline Neurologic: Cranial nerves II through XII grossly intact. Normal speech <IreneJuana - Last Filed: 10/09/18 20:44> Moderate Sedation - Procedure Monitoring Vital Signs: Procedure Monitoring Vital Signs Temperature 98.6 F 10/09/18 14:13 Pulse Rate 57 L 10/09/18 14:13 Respiratory Rate 23 H 10/09/18 14:13 Blood Pressure 124/47 L 10/09/18 14:13 O2 Sat by Pulse Oximetry (%) 93 L 10/09/18 14:13 <Karin Tao - Last Filed: 10/09/18 17:25> - Procedure Monitoring Vital Signs: Procedure Monitoring Vital Signs Temperature 98.6 F 10/09/18 14:13 Pulse Rate 57 L 10/09/18 14:13 Respiratory Rate 23 H 10/09/18 14:13 Blood Pressure 124/47 L 10/09/18 14:13 O2 Sat by Pulse Oximetry (%) 93 L 10/09/18 14:13 <Juana Bonilla - Last Filed: 10/09/18 20:44> ED Treatment Course - LABORATORY CBC & Chemistry Diagram: 10/09/18 16:35 10/09/18 16:35 - ADDITIONAL ORDERS Additional order review: Laboratory Results 10/09/18 10/09/18 10/09/18 16:35 16:35 16:28 PT with INR 18.00 H INR 1.52 H PTT (Actin FS) 35.5 Sodium 139 Potassium 5.0 Chloride 99 Carbon Dioxide 39 H Anion Gap 1 L BUN 45 H Creatinine 2.3 H Creat Clearance w eGFR 28.50 Random Glucose 118 H Calcium 8.0 L Magnesium 2.6 H Total Bilirubin 0.4 AST 261 H ALT 293 H Alkaline Phosphatase 113 Total Protein 6.3 L Albumin 2.5 L 10/09/18 16:35 RBC 3.35 L MCV 77.9 L MCHC 32.2 RDW 18.8 H MPV 8.5 Neutrophils % 78.3 Lymphocytes % 7.9 L Monocytes % 10.1 Eosinophils % 2.7 Basophils % 1.0 <Karin Tao - Last Filed: 10/09/18 17:25> - LABORATORY CBC & Chemistry Diagram: 10/09/18 16:35 10/09/18 16:35 <Juana Bonilla - Last Filed: 10/09/18 20:44> Medical Decision Making - Medical Decision Making 68yo M with history of hemorrhoids, cerebral infarction, DM, MARTIN, CKD, COPD who was sent from [facility] to the ED by his physician, Dr. Valle, for lab abnormalities. -Labs -EKG 10/09/18 19:19 No leukocytosis. Hgb is 8.4 (8.6 two days ago) Liver enzymes elevated, AST 261, ALT 293, Cr= 2.3 EKG: rate 52, QTc 451, sinus rhythm, LBBB also seen on 08/15/18 Plan to admit for hyperkalemia (early today and yesterday), THERESA, elevated liver enzymes Discussed case with Dr. Ney Valle who accepted patient for admission 10/09/18 17:36 Dr. Kecia Valle requested orders for renal ultrasound and liver ultrasound due to patient's lab abnormalities. 10/09/18 19:19 <Juana Bonilla - Last Filed: 10/09/18 20:44> *DC/Admit/Observation/Transfer - Discharge Dispostion Decision to Admit order: Yes <Karin Tao - Last Filed: 10/09/18 17:25> <Juana Bonilla - Last Filed: 10/09/18 20:44> Diagnosis at time of Disposition: Anemia
--- NOTE | 2018-10-09 15:04 | PDOC ---
Attending Attestation - Resident Resident Name: Juana Bonilla - ED Attending Attestation I have performed the following: I have examined & evaluated the patient, The case was reviewed & discussed with the resident, I agree w/resident's findings & plan, Exceptions are as noted - HPI HPI: 10/09/18 15:41 68 yo male with h/o cri, recent GI bleed over the weekend in [facility] here with c/o high potassium. per pt pcp, potassium was elevated above 6 this am labs. was given kaexylate prior to transfer to ED. pt currently has no complaints. no FC no cp no sob. does have chronic leg edema. no changes. - Physicial Exam PE: 10/09/18 15:42 awake alert lungs clear bilaterally heart rrr no mrg abd soft nt nd. ext wwp bilat brawning edema. nuero alert oriented. speech clear - Medical Decision Making 10/09/18 15:04 differential lab error or hemolysis, worsening renal function, infection, progressive anemia. plan labs cbc cmp mag ekg . d/w dr valle, will admit pt to telemetry if potassium elevated. was given kaexylate . will admit to [facility]. dr pichardo for renal cardiologiy 10/09/18 15:43 <Karin Tao - Last Filed: 10/09/18 15:41> - Medical Decision Making 10/09/18 17:29 Dr. Noemy Valle was paged and notified via phone service. <Emma Toro - Last Filed: 10/09/18 17:29>
[2018-10-09 16:38] LABS: EOS % 2.7 % (0-4.5); HEMATOCRIT 26.1 % (35.4-49); HEMOGLOBIN 8.4 GM/dL (11.7-16.9); LYMPH % 7.9 % (8-40); MCH 25.1 pg (25.7-33.7); MCHC 32.2 g/dl (32.0-35.9); MEAN CELL VOLUME 77.9 fl (80-96); MEAN PLT VOLUME 8.5 fl (7.5-11.1); MONO % 10.1 % (3.8-10.2); NEUT % 78.3 % (42.8-82.8); PLATELET COUNT 222 K/MM3 (134-434); RBC 3.35 M/mm3 (4.00-5.60); RDW 18.8 % (11.9-15.9); WHITE BLOOD COUNT 6.7 K/mm3 (4.0-10.0)
[2018-10-09 16:52] LABS: INR 1.52 (0.83-1.09)
[2018-10-09 16:55] LABS: ACTIVATED PTT 35.5 SECONDS (25.2-36.5)
[2018-10-09 17:22] LABS: ALBUMIN 2.5 g/dl (3.4-5.0); ALK PHOS 113 U/L (45-117); ANION GAP 1 MMOL/L (8-16); BILIRUBIN,TOTAL 0.4 mg/dL (0.2-1); BLOOD UREA NITROGEN 45 mg/dL (7-18); CHLORIDE 99 mmol/L (98-107); CO2 39 mmol/L (21-32); CREATININE 2.3 mg/dL (0.55-1.3); GLUCOSE,RANDOM 118 mg/dL (74-106); SGOT/AST 261 U/L (15-37); SGPT/ALT 293 U/L (13-61); SODIUM 139 mmol/L (136-145); TOT PROT 6.3 g/dl (6.4-8.2)
[2018-10-09] MEDS ORDERED: SODIUM CHLORIDE 1,000 ML IV SCH (18:30)
[2018-10-09] MEDS ORDERED: INSULIN SLIDING SCALE (NOVOLOG) 1 VIAL SQ PRN (20:38)
[2018-10-09] MEDS ORDERED: POLYETHYLENE GLYCOL 3350 119 GM BTL PO PRN (21:29)
[2018-10-09] MEDS ORDERED: HEPARIN NA (PORCINE) 5,000 UNITS/ML 1ML VIAL SQ SCH (22:00)
[2018-10-09 22:42] LABS: EOS % 4.4 % (0-4.5); HEMOGLOBIN 8.3 GM/dL (11.7-16.9); LYMPH % 8.1 % (8-40); MCH 24.7 pg (25.7-33.7); MCHC 31.8 g/dl (32.0-35.9); MEAN CELL VOLUME 77.7 fl (80-96); MEAN PLT VOLUME 8.2 fl (7.5-11.1); MONO % 11.1 % (3.8-10.2); NEUT % 75.4 % (42.8-82.8); PLATELET COUNT 225 K/MM3 (134-434); RBC 3.35 M/mm3 (4.00-5.60); RDW 18.6 % (11.9-15.9); WHITE BLOOD COUNT 6.1 K/mm3 (4.0-10.0)
[2018-10-09] MEDS: LIDOCAINE PATCH REMOVAL MC SCH (23:00)
[2018-10-09 23:13] LABS: OVALOCYTE FEW
[2018-10-09 23:14] LABS: PLATELET ESTIMATE ADEQUATE
[2018-10-09] MEDS ORDERED: HEPARIN NA (PORCINE) 5,000 UNITS/ML 1ML VIAL ONE (23:14)
[2018-10-09 23:17] LABS: AMYLASE 39 U/L (25-115); LIPASE 109 U/L (73-393)
[2018-10-09 23:19] LABS: ARTERIAL BLD GAS O2 SATURATION 77.4 % (90-98.9); ARTERIAL BLOOD GAS BASE EXCESS 9.2 meq/l (-2-2); ARTERIAL BLOOD GAS pH 7.36 (7.35-7.45)
[2018-10-09 23:20] LABS: GAMMA GLUTAMYL TRANSPEPTIDASE 53 U/L (5-85); LDH 259 U/L (87-246)
[2018-10-09 23:20] LABS: ALLENS TEST POSITIVE
[2018-10-09 23:24] LABS: ARTERIAL BLOOD GAS PCO2 64.6 mmHg (35-45)
[2018-10-09 23:25] LABS: ARTERIAL BLOOD GAS PO2 48.5 mmHg (80-100)
[2018-10-09 23:30] LABS: ALBUMIN 2.4 g/dl (3.4-5.0); ALK PHOS 108 U/L (45-117); ANION GAP 3 MMOL/L (8-16); BILIRUBIN,TOTAL 0.4 mg/dL (0.2-1); BLOOD UREA NITROGEN 44 mg/dL (7-18); CHLORIDE 100 mmol/L (98-107); CO2 37 mmol/L (21-32); CREATININE 2.1 mg/dL (0.55-1.3); GLUCOSE,RANDOM 96 mg/dL (74-106); POTASSIUM 4.9 mmol/L (3.5-5.1); SGOT/AST 204 U/L (15-37); SGPT/ALT 278 U/L (13-61); SODIUM 140 mmol/L (136-145); TOT PROT 6.4 g/dl (6.4-8.2)
[2018-10-09] MEDS ORDERED: INSULIN (NOVOLOG) ASPART 100 UNITS/ML 10ML VIAL ONE (23:38)
[2018-10-09] MEDS: INSULIN SLIDING SCALE (NOVOLOG) 1 VIAL SQ SCH (23:41)
[2018-10-09] MEDS: NYSTATIN/TRIAMCINOLONE TOPICAL OINTMENT 15 GM TUBE TP SCH (23:42)
[2018-10-09] MEDS: MINERAL OIL/PET HY-PHL TOPICAL OINTMENT 454 GM JAR TP SCH (23:42)
--- NOTE | 2018-10-09 23:42 | HP ---
Admitting History and Physical - Primary Care Physician PCP: Danny Valle - Admission Chief Complaint: Elevated Potassium History of Present Illness: Pt is a[facility], referred to ER for high potassium at [facility] (over 6.0). In ER pt's K was found to be w/i NL but his creatinine was found to be elevated and his LFT were also elevated. Pt also was found to have a HR in high 40's to lower 50's. Pt was admitted to Telemetry. 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: CVA (no deficit, 5 years ago) Cardiovascular: Yes: CAD, HTN, Hyperlipdemia Pulmonary: Yes: COPD (on CPAP at night), O2 Dependent, Other (Cronic respiratory failure, on BIPAP at home) Renal/: Yes: Renal Failure (chronic) Infectious Disease: Yes: MRSA (in LE) Endocrine: Yes: Diabetes Mellitus Dermatology: Yes: Cellulitis (in LE) - Past Surgical History Past Surgical History: Yes: Stent - Smoking History Smoking history: Former smoker Have you smoked in the past 12 months: No Aproximately how many cigarettes per day: 20 If you are a former smoker, when did you quit?: 6 months - Alcohol/Substance Use Hx Alcohol Use: No History of Substance Use: reports: None - Social History ADL: Independent 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 History of Recent Travel: No Home Medications - Allergies Allergies/Adverse Reactions: Allergies Allergy/AdvReac Type Severity Reaction Status Date / Time amoxicillin trihydrate Allergy Unknown Verified 10/09/18 19:05 [From Augmentin] potassium clavulanate Allergy Unknown Verified 10/09/18 19:05 [From Augmentin] - Home Medications Home Medications: Ambulatory Orders Aspirin [ASA -] 81 mg PO DAILY 08/15/18 Atorvastatin Ca [Lipitor] 20 mg PO HS 08/15/18 Clopidogrel Bisulfate [Clopidogrel] 75 mg PO DAILY 08/15/18 Torsemide [Demadex -] 10 mg PO DAILY 08/15/18 Acetaminophen [Tylenol .Regular Strength -] 650 mg PO Q6H PRN tablet 08/24/18 Albuterol 0.083% Nebulizer Kala [Ventolin 0.083% Nebulizer Soln -] 1 amp NEB Q6H PRN amp 08/24/18 Budesonide/Formeterol Fumarate [SYMBICORT 160/4.5mcg -] 2 puff IH BID inhaler 08/24/18 Lidocaine 5% Patch [Lidoderm -] 1 patch TP DAILY patch 08/24/18 Lidocaine Patch Removal [Lidoderm Patch Removal] 1 each MC DAILY@2200 each 12/10 Mineral Oil/Pet Hy-Phl [Aquaphor -] 1 applic TP BID jar 08/24/18 Nystatin/Triamcinolone Top Oin [Mycolog II -] 1 applic TP BID applic 08/24/18 oxyCODONE HCL [Roxicodone -] 5 mg PO Q6H PRN #40 tablet MDD 4 08/24/18 Citalopram Hydrobromide [Celexa -] 20 mg PO DAILY tablet 09/25/18 Bismuth Tribromoph/Petrolatum [Xeroform Petrolatum Dress] 1 each TP DAILY Insulin Sliding Scale [Novolog Vial Sliding Scale -] 1 vial SQ ACHS PRN Nystatin Cream [Mycostatin] 1 applic TP BID 10/09/18 Pen Needle, Diabetic [Novofine Plus] 1 each MC ASDIR 10/09/18 Tiotropium [place] [Spiriva Respimat] 2 puff IH DAILY 10/09/18 Family Disease History - Family Disease History Family Disease History: Diabetes: Daughter Review of Systems - Review of Systems Constitutional: denies: Chills, Fever, Night Sweats Eyes: denies: Blurred Vision, Recent Change in Vision HENT: denies: Difficult Swallowing, Ear Discharge, Nasal Congestion, Throat Pain Neck: denies: Pain on Movement, Stiffness, Tenderness Cardiovascular: denies: Chest Pain, Edema, Palpitations Respiratory: denies: Cough, SOB, SOB on Exertion, Wheezing Gastrointestinal: denies: Abdominal Pain, Diarrhea, Nausea, Vomiting Genitourinary: denies: Burning, Discharge, Dysuria, Flank Pain, Hematuria Musculoskeletal: denies: Back Pain, Joint Swelling, Muscle Pain Integumentary: denies: Blister, Bruising Neurological: denies: Change in LOC, Change in Speech, Numbness, Unsteady Gait, Weakness Endocrine: denies: Excessive Sweating, Intolerance to Cold Hematology/Lymphatic: denies: Easily Bruised Psychiatric: denies: Anxiety, Depression, Hallucinations Physical Examination Vital Signs: Vital Signs Temperature 98.4 F 10/09/18 18:27 Pulse Rate 46 L 10/09/18 18:27 Respiratory Rate 16 18 18:27 Blood Pressure 132/73 10/09/18 18:27 O2 Sat by Pulse Oximetry (%) 93 L 10/09/18 18:27 Constitutional: Yes: No Distress, Calm Eyes: Yes: EOM Intact. No: Sclera Icterus HENT: No: Normocephalic, Epistaxis, Nasal Congestion, Pharyngeal Erythema, Rhinnorhea Neck: Yes: Trachea Midline. No: Lymphadenopathy Cardiovascular: Yes: Regular Rate and Rhythm, Bradycardia, S1, S2 Respiratory: Yes: Regular. No: Rales Gastrointestinal: Yes: Normal Bowel Sounds, Soft, Abdomen, Obese. No: Hepatomegaly, Splenomegaly, Tenderness ...Rectal Exam: Yes: Deferred Renal/: No: CVA Tenderness - Left, CVA Tenderness - Right Musculoskeletal: No: Back Pain, Joint Swelling Extremities: Yes: Other Integumentary: Yes: Pressure Ulcer, Other (Skin ulcers of LE's, no calor, no pain, no erythema). No: Jaundice Neurological: Yes: Alert, Oriented, Other (motor and sensory examination is symmetric in the face/ UE/ LE) Psychiatric: Yes: Alert, Oriented Labs: CBC, BMP 10/09/18 22:20 10/09/18 22:20 Imaging - Results Chest X-ray: Pending Ultrasound: Pending Problem List - Problems (1) THERESA (acute kidney injury) Code(s): N17.9 - ACUTE KIDNEY FAILURE, UNSPECIFIED (2) Elevated LFTs Code(s): R94.5 - ABNORMAL RESULTS OF LIVER FUNCTION STUDIES (3) Bradycardia Code(s): R00.1 - BRADYCARDIA, UNSPECIFIED (4) Anemia Code(s): D64.9 - ANEMIA, UNSPECIFIED (5) MARTIN on CPAP Code(s): G47.33 - OBSTRUCTIVE SLEEP APNEA (ADULT) (PEDIATRIC); Z99.89 - DEPENDENCE ON OTHER ENABLING MACHINES AND DEVICES (6) CHF (congestive heart failure) Code(s): I50.9 - HEART FAILURE, UNSPECIFIED (7) COPD with acute exacerbation Code(s): J44.1 - CHRONIC OBSTRUCTIVE PULMONARY DISEASE W (ACUTE) EXACERBATION (8) CVA (cerebral vascular accident) Code(s): I63.9 - CEREBRAL INFARCTION, UNSPECIFIED (9) Cellulitis of both lower extremities Code(s): L03.115 - CELLULITIS OF RIGHT LOWER LIMB; L03.116 - CELLULITIS OF LEFT LOWER LIMB (10) Diabetes mellitus Code(s): E11.9 - TYPE 2 DIABETES MELLITUS WITHOUT COMPLICATIONS Assessment/Plan LIver US Kidney and Bladder US GI, Renal consult IVF Hold meds than can worsen LFT, Creatinine Admit to Telemetry Cardio consult AM Labs
[2018-10-09] MEDS: NYSTATIN 100,000 UNIT/GM TOPICAL CREAM 15 GM TUBE TP SCH (23:43)
[2018-10-09] MEDS: BUDESONIDE/FORMETEROL FUMARATE 160/4.5 mcg INHALER IH SCH (23:43)
[2018-10-10 03:00] LABS: URINE APPEARANCE CLEAR; URINE BILIRUBIN NEGATIVE (<2.0 mg/dL); URINE COLOR YELLOW; URINE GLUCOSE (UA) NEGATIVE (NEGATIVE); URINE KETONE NEGATIVE (NEGATIVE); URINE LEUK ESTERASE 1+ (NEGATIVE); URINE NITRITE NEGATIVE (NEGATIVE); URINE PROTEIN NEGATIVE (NEGATIVE); URINE UROBILINOGEN NEGATIVE mg/dL (0.2-1.0)
[2018-10-10 03:06] LABS: EPI CELLS RARE /HPF (FEW); URINE BACTERIA RARE /hpf (NONE SEEN); URINE HYALINE CAST 12 /lpf; URINE MUCUS RARE
[2018-10-10] MEDS: INSULIN SLIDING SCALE (NOVOLOG) 1 VIAL SQ SCH ×4 (07:24→21:20)
[2018-10-10 09:40] LABS: INR 1.43 (0.83-1.09); PROTHROMBIN TIME (PATIENT) 16.9 SEC (9.7-13.0)
[2018-10-10] MEDS ORDERED: PATIENT'S OWN MEDICATION (NON-FORMULARY) (Bismuth Tribromoph/Petrolatum [Xeroform Petrolat TP SCH (10:00)
--- NOTE | 2018-10-10 10:01 | CON.CARD ---
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 Resident of [facility], sent to ER for hyperkalemia, K>6.0, THERESA and elevated LFTs. Also noted to be bradycardic HR high 40s-low 50s. No cp sob palps dizzy loc pnd orthopnea, he feels at baseline. 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 leg cellulitis) Endocrine: Yes: Diabetes Mellitus Dermatology: Yes: Cellulitis (in LE), Other (R leg ulcer) - Past Surgical History Past Surgical History: Yes: le bypass - Alcohol/Substance Use Hx Alcohol Use: No History of Substance Use: reports: None - Smoking History Smoking history: Current every day smoker Have you smoked in the past 12 months: Yes Aproximately how many cigarettes per day: 20 If you are a former smoker, when did you quit?: 6 months - Social History Usual Living Arrangement: With Spouse ADL: Independent Occupation: worked for a [employer] History of Recent Travel: No Home Medications - Allergies Allergies Allergy/AdvReac Type Severity Reaction Status Date / Time amoxicillin trihydrate Allergy Unknown Verified 10/09/18 19:05 [From Augmentin] potassium clavulanate Allergy Unknown Verified 10/09/18 19:05 [From Augmentin] - Home Medications Home Medications Medication Instructions Recorded Aspirin [ASA -] 81 mg PO DAILY 08/15/18 Atorvastatin Ca [Lipitor] 20 mg PO HS 08/15/18 Clopidogrel Bisulfate [Clopidogrel] 75 mg PO DAILY 08/15/18 Torsemide [Demadex -] 10 mg PO DAILY 08/15/18 Acetaminophen [Tylenol .Regular 650 mg PO Q6H PRN tablet 08/24/18 Strength -] Albuterol 0.083% Nebulizer Kala 1 amp NEB Q6H PRN amp 08/24/18 [Ventolin 0.083% Nebulizer Soln -] Budesonide/Formeterol Fumarate 2 puff IH BID inhaler 08/24/18 [SYMBICORT 160/4.5mcg -] Lidocaine 5% Patch [Lidoderm -] 1 patch TP DAILY patch 08/24/18 Lidocaine Patch Removal [Lidoderm 1 each MC DAILY@2200 each 08/24/18 Patch Removal] Mineral Oil/Pet Hy-Phl [Aquaphor -] 1 applic TP BID jar 08/24/18 Nystatin/Triamcinolone Top Oin 1 applic TP BID applic 08/24/18 [Mycolog II -] oxyCODONE HCL [Roxicodone -] 5 mg PO Q6H PRN #40 tablet MDD 4 08/24/18 Citalopram Hydrobromide [Celexa -] 20 mg PO DAILY tablet 09/25/18 Bismuth Tribromoph/Petrolatum 1 each TP DAILY 10/09/18 [Xeroform Petrolatum Dress] Insulin Sliding Scale [Novolog 1 vial SQ ACHS PRN 10/09/18 Vial Sliding Scale -] Nystatin Cream [Mycostatin] 1 applic TP BID 10/09/18 Pen Needle, Diabetic [Novofine 1 each MC ASDIR 10/09/18 Plus] Tiotropium [place] [Spiriva 2 puff IH DAILY 10/09/18 Respimat] Family Disease History - Family Disease History Family History: Unremarkable Family Disease History: Diabetes: Daughter Review of Systems per hpi; no nvd, fever gib hematuria dysuria muscle pains vision changes cough pe: Vital Signs Period Temp Pulse Resp BP Sys/Mullen Pulse Ox Last 24 Hr 98.1 F-98.6 F 46-65 16-23 124-132/47-73 92-98 Constitutional: Yes: No Distress, Calm Eyes: Yes: Conjunctiva Clear, HENT: Yes: Atraumatic, Normocephalic Neck: Yes: Supple, Trachea Midline Respiratory: Yes: cta bl nl eff Gastrointestinal: Yes: Normal Bowel Sounds, Soft Cardiovascular: Yes: Regular Rate and Rhythm JVD: No Carotid Bruit: No Heart Sounds: Yes: S1, S2 Extremities: Yes: Erythema, Other (erythema bilateral feet and ankles with weeping from wounds) Edema: trace/1+ le edema bl Peripheral Pulses: 1+ Left Doralis Pedis, 1+ Right Dorsalis Pedis Integumentary: no jaundice diaphoresis aaox3 - Other Data Labs, Other Data: Laboratory Last Values WBC 6.1 K/mm3 (4.0-10.0) 10/09/18 22:20 RBC 3.35 M/mm3 (4.00-5.60) L 10/09/18 22:20 Hgb 8.3 GM/dL (11.7-16.9) L 10/09/18 22:20 Hct 26.0 % (35.4-49) L 10/09/18 22:20 MCV 77.7 fl (80-96) L 10/09/18 22:20 MCH 24.7 pg (25.7-33.7) L 10/09/18 22:20 MCHC 31.8 g/dl (32.0-35.9) L 10/09/18 22:20 RDW 18.6 % (11.9-15.9) H 10/09/18 22:20 Plt Count 225 K/MM3 (134-434) 10/09/18 22:20 MPV 8.2 fl (7.5-11.1) 10/09/18 22:20 Absolute Neuts (auto) 4.6 K/mm3 (1.5-8.0) 10/09/18 22:20 Total Counted 100 10/09/18 22:20 Neutrophils % 75.4 % (42.8-82.8) 10/09/18 22:20 Neutrophils % (Manual) 77.0 % (42.8-82.8) 10/09/18 22:20 Band Neutrophils % 2.0 % 10/09/18 22:20 Lymphocytes % 8.1 % (8-40) 10/09/18 22:20 Lymphocytes % (Manual) 8.0 % (8-40) 10/09/18 22:20 Monocytes % 11.1 % (3.8-10.2) H 10/09/18 22:20 Monocytes % (Manual) 8 % (3.8-10.2) D 10/09/18 22:20 Eosinophils % 4.4 % (0-4.5) 10/09/18 22:20 Eosinophils % (Manual) 5.0 % (0-4.5) H D 10/09/18 22:20 Basophils % 1.0 % (0-2.0) 10/09/18 22:20 Nucleated RBC % 0 % (0-0) 10/09/18 22:20 Hypochromia 1+ 10/09/18 22:20 Platelet Estimate Adequate 10/09/18 22:20 Platelet Comment No clumping noted 10/09/18 22:20 Polychromasia 1+ 10/09/18 22:20 Ovalocytes Few 10/09/18 22:20 ESR 92 mm/hr (0-20) H 10/09/18 22:20 Retic Count 2.27 % (0.5-1.5) H 10/09/18 22:20 PT with INR 16.90 SEC (9.7-13.0) H 10/10/18 06:00 INR 1.43 (0.83-1.09) H 10/10/18 06:00 PTT (Actin FS) 35.5 SECONDS (25.2-36.5) 10/09/18 16:35 Anticoagulation Therapy No Result Required. 10/09/18 23:02 Puncture Site Right radial 10/09/18 23:02 ABG pH 7.36 (7.35-7.45) 10/09/18 23:02 ABG pCO2 at Pt Temp 64.6 mmHg (35-45) H* 10/09/18 23:02 ABG pO2 at Pt Temp 48.5 mmHg (80-100) L* D 10/09/18 23:02 ABG HCO3 35.5 meq/L (22-26) H 10/09/18 23:02 ABG O2 Sat (Measured) 77.4 % (90-98.9) L 10/09/18 23:02 ABG O2 Content 8.8 % vol (15-22) L* 10/09/18 23:02 ABG Base Excess 9.2 meq/l (-2-2) H 10/09/18 23:02 Paul Test Positive 10/09/18 23:02 O2 Delivery Device N/c 10/09/18 23:02 Oxygen Flow Rate Yes 10/09/18 23:02 Vent Mode No Result Required. 10/09/18 23:02 Vent Rate No Result Required. 10/09/18 23:02 Mechanical Rate No Result Required. 10/09/18 23:02 Pressure Support Vent No Result Required. 10/09/18 23:02 Sodium 140 mmol/L (136-145) 10/09/18 22:20 Potassium 4.9 mmol/L (3.5-5.1) 10/09/18 22:20 Chloride 100 mmol/L (98-107) 10/09/18 22:20 Carbon Dioxide 37 mmol/L (21-32) H 10/09/18 22:20 Anion Gap 3 MMOL/L (8-16) L 10/09/18 22:20 BUN 44 mg/dL (7-18) H 10/09/18 22:20 Creatinine 2.1 mg/dL (0.55-1.3) H 10/09/18 22:20 Creat Clearance w eGFR 31.66 (>60) 10/09/18 22:20 Random Glucose 96 mg/dL (74-106) 10/09/18 22:20 Lactic Acid 1.1 mmol/L (0.4-2.0) 10/09/18 22:20 Calcium 8.0 mg/dL (8.5-10.1) L 10/09/18 22:20 Magnesium 2.6 mg/dL (1.8-2.4) H 10/09/18 16:28 Ferritin 641.0 ng/ml (8-388) H 10/09/18 22:20 Total Bilirubin 0.4 mg/dL (0.2-1) 10/09/18 22:20 GGT 53 U/L (5-85) 10/09/18 22:20 AST 204 U/L (15-37) H 10/09/18 22:20 ALT 278 U/L (13-61) H 10/09/18 22:20 Alkaline Phosphatase 108 U/L (45-117) 10/09/18 22:20 LD Total 259 U/L (87-246) H 10/09/18 22:20 Creatine Kinase 72 IU/L (26-308) 10/09/18 22:20 Troponin I 0.57 ng/ml (0.00-0.05) H 10/09/18 22:20 C-Reactive Protein 11.7 MG/DL (0.00-0.3) H 10/09/18 22:20 Total Protein 6.4 g/dl (6.4-8.2) 10/09/18 22:20 Albumin 2.4 g/dl (3.4-5.0) L 10/09/18 22:20 Total Amylase 39 U/L (25-115) 10/09/18 22:20 Lipase 109 U/L (73-393) 10/09/18 22:20 Vitamin B12 1704 pg/ml (193-986) H 10/09/18 22:20 Urine Color Yellow 10/10/18 02:50 Urine Appearance Clear 10/10/18 02:50 Urine pH 5.0 (5.0-8.0) 10/10/18 02:50 Ur Specific [place] 1.013 (1.010-1.035) 10/10/18 02:50 Urine Protein Negative (NEGATIVE) 10/10/18 02:50 Urine Glucose (UA) Negative (NEGATIVE) 10/10/18 02:50 Urine Ketones Negative (NEGATIVE) 10/10/18 02:50 Urine Blood Negative (NEGATIVE) 10/10/18 02:50 Urine Nitrite Negative (NEGATIVE) 10/10/18 02:50 Urine Bilirubin Negative (<2.0 mg/dL) 10/10/18 02:50 Urine Urobilinogen Negative mg/dL (0.2-1.0) 10/10/18 02:50 Ur Leukocyte Esterase 1+ (NEGATIVE) H 10/10/18 02:50 Urine WBC (Auto) 3 /hpf (3-5) 10/10/18 02:50 Urine RBC (Auto) 1 /hpf (0-3) 10/10/18 02:50 Ur Epithelial Cells Rare /HPF (FEW) 10/10/18 02:50 Urine Bacteria Rare /hpf (NONE SEEN) 10/10/18 02:50 Hyaline Casts 12 /lpf 10/10/18 02:50 Urine Mucus Rare 10/10/18 02:50 U Random Total Protein 26 mg/dl (0-11.9) H 10/10/18 02:50 Ur Random Sodium 19 MMOL/L (40-220) L 10/10/18 02:50 Ur Random Urea Nitrogn Cancelled 10/10/18 Unknown Urine Creatinine 148.0 mg/dL (2-36) H 10/10/18 02:50 Blood Type AB POSITIVE 10/09/18 16:35 Antibody Screen Negative 10/09/18 16:35 echo 12/2016: nl lv/rv, mild lae, mild mr, mild-mod tr, possible mild as, mild phtn exercise mibi 01/02: no ischemia at 80% mphr EKG: sinus, LBBB, mobitz 1 (similar to prior EKGs) tele: sinus, LBBB, mobitz I a/p: 68M h/o CVA, HTN, HLD, COPD (on 3L O2), CKD, DM, TIA, chronic diastolic hf /venous insufficiency, 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 bradycardia, Abnormal EKG, mobitz 1, LBBB: - chronic findings, has had prior event monitors in clinic showing mobitz 1 without significant pauses - bradycardia likely in setting of hyperkalemia, appears to have improved with correction of K - avoid AV arsh blocking agents - monitoring on tele elevated trop - 0.57->0..43 in setting of THERESA - no chest pain, EKG stable compared to prior with LBBB - less likely ACS COPD - seems stable presently chronic venous insuff/LE edema, recurrent cellulitis: - manage per primary PAD: -prior h/o left fem-pop bypass, cont dapt, statin chronic diastolic CHF -echoes have been unremarkable or very TDS in past, most recent 12/2016 was unremarkable - BNP elevated, however in setting of THERESA, appears euvolemic, no dyspnea -holding torsemide in setting of THERESA, defer diuretics hyperkalemia - manage per primary THERESA - renal consulted elevated LFTs - GI consulted htn: -stable, controlled hld: -cont statin h/o TIA (2003): -on ASA, statin for sec prevention, cont same
--- NOTE | 2018-10-10 10:20 | EKG ---
Test Reason : Blood Pressure : / mmHG Vent. Rate : 052 BPM Atrial Rate : 076 BPM P-R Int : 000 ms QRS Dur : 146 ms QT Int : 486 ms P-R-T Axes : 069 -17 086 degrees QTc Int : 451 ms SINUS RHYTHM WITH 2ND DEGREE A-V BLOCK (MOBITZ I) LEFT BUNDLE BRANCH BLOCK ABNORMAL ECG WHEN COMPARED WITH ECG OF 18-SEP-2018 03:16, PREVIOUS ECG HAS UNDETERMINED RHYTHM, NEEDS REVIEW T WAVE AMPLITUDE HAS DECREASED IN ANTERIOR LEADS Confirmed by ARSEN SOLIS, VIKRAM ([id number]) on 10/10/2018 10:20:13 AM Referred By: Confirmed By:VIKRAM LEGER MD
[2018-10-10 10:49] LABS: ALBUMIN 2.5 g/dl (3.4-5.0); ALK PHOS 106 U/L (45-117); ANION GAP 6 MMOL/L (8-16); BILIRUBIN,TOTAL 0.4 mg/dL (0.2-1); BLOOD UREA NITROGEN 40 mg/dL (7-18); CALCIUM 7.6 mg/dL (8.5-10.1); CHLORIDE 97 mmol/L (98-107); CO2 36 mmol/L (21-32); CREATININE 1.7 mg/dL (0.55-1.3); GLUCOSE,RANDOM 80 mg/dL (74-106); MAGNESIUM 2.5 mg/dL (1.8-2.4); N-TERMINAL BNP 17919.9 pg/ml (5-125); PHOSPHOROUS 4.7 mg/dL (2.5-4.9); POTASSIUM 5.1 mmol/L (3.5-5.1); SGOT/AST 148 U/L (15-37); SGPT/ALT 257 U/L (13-61); SODIUM 139 mmol/L (136-145); TOT PROT 6.4 g/dl (6.4-8.2)
[2018-10-10 11:07] LABS: ERYTHROCYTE SEDIMENTATION RATE 79 mm/hr (0-20)
[2018-10-10] MEDS: ASPIRIN COATED 81 MG TABLET.EC PO SCH (11:10)
[2018-10-10] MEDS: LIDOCAINE 5% TOPICAL PATCH TP SCH (11:10)
[2018-10-10] MEDS: NYSTATIN/TRIAMCINOLONE TOPICAL OINTMENT 15 GM TUBE TP SCH ×2 (11:10→21:07)
[2018-10-10] MEDS: TIOTROPIUM BROMIDE 2.5 MCG (SPIRIVA) RESPIMAT INHALER IH SCH (11:11)
[2018-10-10] MEDS: NYSTATIN 100,000 UNIT/GM TOPICAL CREAM 15 GM TUBE TP SCH ×2 (11:11→21:08)
[2018-10-10] MEDS: PANTOPRAZOLE 20 MG TABLET (FP) PO SCH (11:11)
[2018-10-10] MEDS: BUDESONIDE/FORMETEROL FUMARATE 160/4.5 mcg INHALER IH SCH ×2 (11:11→21:15)
[2018-10-10] MEDS: CLOPIDOGREL BISULFATE 75 MG TABLET (FP) PO SCH (11:11)
[2018-10-10 11:15] LABS: BASO % 1.2 % (0-2.0); EOS % 6.7 % (0-4.5); HEMATOCRIT 26.2 % (35.4-49); HEMOGLOBIN 8.4 GM/dL (11.7-16.9); LYMPH % 8.1 % (8-40); MCH 24.8 pg (25.7-33.7); MEAN CELL VOLUME 77.5 fl (80-96); MEAN PLT VOLUME 8.9 fl (7.5-11.1); MONO % 10.5 % (3.8-10.2); NEUT % 73.5 % (42.8-82.8); PLATELET COUNT 219 K/MM3 (134-434); RBC 3.39 M/mm3 (4.00-5.60); RDW 18.5 % (11.9-15.9); WHITE BLOOD COUNT 6.2 K/mm3 (4.0-10.0)
[2018-10-10] MEDS: oxyCODONE HCL 5 MG TABLET PO PRN (11:17)
--- NOTE | 2018-10-10 11:22 | CONSULT ---
Consult - text type - Consultation Consultation Note: Renal Consult for THERESA on CKD This is a 68 year old gentleman with hx of CKD, MARTIN, COPD, CVA, DM who was sent to the ED from [place] for hyperkalemia and found to have THERESA And acute liver injury. Pt is without any acute complaints. Denies any Abd pain, N/V/D. Has some cough. NO fever or chills. Denies any changes in urine output or hematuria. Denies any NSAID use. Pt on Torsemide daily. No dysuria, flank pain. PMhx: as above Allergies: Amoxicillin Family Hx: NC Social Hx: No T/A/D ROS: As per HPI, all other pertinent ros negative Home Medications Medication Instructions Recorded Aspirin [ASA -] 81 mg PO DAILY 08/15/18 Atorvastatin Ca [Lipitor] 20 mg PO HS 08/15/18 Clopidogrel Bisulfate [Clopidogrel] 75 mg PO DAILY 08/15/18 Torsemide [Demadex -] 10 mg PO DAILY 08/15/18 Acetaminophen [Tylenol .Regular 650 mg PO Q6H PRN tablet 08/24/18 Strength -] Albuterol 0.083% Nebulizer [place] 1 amp NEB Q6H PRN amp 08/24/18 [Ventolin 0.083% Nebulizer Soln -] Budesonide/Formeterol Fumarate 2 puff IH BID inhaler 08/24/18 [SYMBICORT 160/4.5mcg -] Lidocaine 5% Patch [Lidoderm -] 1 patch TP DAILY patch 08/24/18 Lidocaine Patch Removal [Lidoderm 1 each MC DAILY@2200 each 08/24/18 Patch Removal] Mineral Oil/Pet Hy-Phl [Aquaphor -] 1 applic TP BID jar 08/24/18 Nystatin/Triamcinolone Top Oin 1 applic TP BID applic 08/24/18 [Mycolog II -] oxyCODONE HCL [Roxicodone -] 5 mg PO Q6H PRN #40 tablet MDD 4 08/24/18 Citalopram Hydrobromide [Celexa -] 20 mg PO DAILY tablet 09/25/18 Bismuth Tribromoph/Petrolatum 1 each TP DAILY 10/09/18 [Xeroform Petrolatum Dress] Insulin Sliding Scale [Novolog 1 vial SQ ACHS PRN 10/09/18 Vial Sliding Scale -] Nystatin Cream [Mycostatin] 1 applic TP BID 10/09/18 Pen Needle, Diabetic [Novofine 1 each MC ASDIR 10/09/18 Plus] Tiotropium [place] [Spiriva 2 puff IH DAILY 10/09/18 Respimat] Vital Signs Temperature 98.1 F 10/10/18 08:51 Pulse Rate 65 10/10/18 08:51 Respiratory Rate 20 10/10/18 08:51 Blood Pressure 128/61 10/10/18 08:51 O2 Sat by Pulse Oximetry (%) 98 10/10/18 08:51 Intake & Output 10/07/18 10/08/18 10/09/18 10/10/18 23:59 23:59 23:59 23:59 Output Total 200 Balance -200 Weight 108.862 kg NAD awake and alert Neck supple RRR CTA, no rales or wheeze soft, obese, NT/ND ++ edema in LE no bladder distension CBC, BMP 10/10/18 06:00 10/10/18 06:00 Laboratory Tests 05/03/15 10/09/18 10/09/18 06:50 16:35 22:20 Calcium 8.3 L Phosphorus 5.8 H Magnesium 2.2 AST 261 H 204 H ALT 293 H 278 H Albumin 2.7 L Troponin I B-Natriuretic Peptide 10/10/18 06:00 Calcium 7.6 L Phosphorus 4.7 Magnesium 2.5 H AST 148 H ALT 257 H Albumin 2.5 L Troponin I 0.43 H B-Natriuretic Peptide 71650.9 H Current Medications Albuterol Sulfate (Ventolin 0.083% Nebulizer Soln -) 1 amp NEB Q6H PRN PRN Reason: SHORT OF BREATH/WHEEZING Aspirin (Ecotrin -) 81 mg PO DAILY [facility] Last Admin: 10/10/18 11:10 Dose: 81 mg Budesonide/Formoterol Fumarate (Symbicort 160/4.5mcg -) 2 puff IH BID [facility] Last Admin: 10/10/18 11:11 Dose: Not Given Clopidogrel Bisulfate (Plavix -) 75 mg PO DAILY [facility] Last Admin: 10/10/18 11:11 Dose: 75 mg Emollient Ointment (Aquaphor -) 1 applic TP BID [facility] Last Admin: 10/09/18 23:42 Dose: Not Given Insulin Aspart (Novolog Vial Sliding Scale -) 1 vial SQ ACHS [facility]; Protocol Last Admin: 10/10/18 07:24 Dose: Not Given Lidocaine (Lidoderm Patch -) 1 patch TP DAILY [facility] Last Admin: 10/10/18 11:10 Dose: 1 patch Miscellaneous (Lidoderm Patch Removal) 1 each MC DAILY@2200 [facility] Last Admin: 10/09/18 23:00 Dose: Not Given Nystatin (Mycostatin Cream -) 1 applic TP BID [facility] Last Admin: 10/10/18 11:11 Dose: Not Given Nystatin/Triamcinolone Acetonide (Mycolog Ii Ointment -) 1 applic TP BID [facility] Last Admin: 10/10/18 11:10 Dose: Not Given Oxycodone HCl (Roxicodone -) 5 mg PO Q6H PRN PRN Reason: PAIN LEVEL 7 - 10 Last Admin: 10/10/18 11:17 Dose: 5 mg Pantoprazole Sodium (Protonix -) 20 mg PO DAILY [facility] Last Admin: 10/10/18 11:11 Dose: 20 mg Polyethylene Glycol (Miralax (For Daily Use) -) 17 gm PO DAILY PRN PRN Reason: CONSTIPATION Tiotropium [place] (Spiriva Respimat) 2 puff IH DAILY [facility] Last Admin: 10/10/18 11:11 Dose: Not Given 68 year old gentleman with hx of CKD, MARTIN, COPD, CVA, DM who was sent to the ED from [place] for hyperkalemia and found to have THERESA And acute liver injury. #THERESA on CKD likely due to intravascular volume depletion #Abnormal LFT's/Acute liver injury #Chronic LE edema #Anemia Renal function improved s/p 1L of IVF Urine studies consistent with volume depletion, renal hypoprofusion Would not resume further IVF at this time given chronic LE edema, but would withhold diuretics for additional 24 hours before re-introducing AST/ALT improving slowing, GGT was WNL US showed small gallstone with evidence of acute cholecystitis Check iron profile, no acute need for transfusion Trend renal function and electrolytes Thank you Kartik Escobedo DO
--- NOTE | 2018-10-10 13:13 | PN ---
Progress Note (short form) - Note Progress Note: PULMONARY CONSULTATION DICTATED 09/22/18 IMP ACUTE ON CHRONIC HYPOXEMIC/HYPERCAPNEIC RESPIRATORY FAILURE COPD END STAGE O2 DEPENDENT ACUTE ON CHRONIC KIDNEY INJURY MARTIN BRADYCARDIA HTN H/O CVA TOBACCO ABUSE + TROPONIN ELEVATED LFTS PLAN INHALED BRONCHODILATORS O2 BIPAP AT NIGHT AND PRN IVF MONITOR LYTES,RENAL FUNCTION,LFTS TREND TROPONINS F/U CHEST X-RAYS DR GREEN Problem List - Problems (1) Bradycardia Code(s): R00.1 - BRADYCARDIA, UNSPECIFIED (2) Elevated LFTs Code(s): R94.5 - ABNORMAL RESULTS OF LIVER FUNCTION STUDIES (3) MARTIN on CPAP Code(s): G47.33 - OBSTRUCTIVE SLEEP APNEA (ADULT) (PEDIATRIC); Z99.89 - DEPENDENCE ON OTHER ENABLING MACHINES AND DEVICES (4) Acute on chronic respiratory failure with hypoxia and hypercapnia Code(s): J96.21 - ACUTE AND CHRONIC RESPIRATORY FAILURE WITH HYPOXIA; J96.22 - ACUTE AND CHRONIC RESPIRATORY FAILURE WITH HYPERCAPNIA (5) CHF (congestive heart failure) Code(s): I50.9 - HEART FAILURE, UNSPECIFIED (6) CVA (cerebral vascular accident) Code(s): I63.9 - CEREBRAL INFARCTION, UNSPECIFIED (7) Diabetes mellitus Code(s): E11.9 - TYPE 2 DIABETES MELLITUS WITHOUT COMPLICATIONS (8) Hyperkalemia Code(s): E87.5 - HYPERKALEMIA (9) Sleep apnea Code(s): G47.30 - SLEEP APNEA, UNSPECIFIED (10) CAD (coronary artery disease) Code(s): I25.10 - ATHSCL HEART DISEASE OF [place] CORONARY ARTERY W/O ANG PCTRS (11) Leg edema Code(s): R60.0 - LOCALIZED EDEMA (12) Mobitz (type) I (Wenckebach's) atrioventricular block Code(s): I44.1 - ATRIOVENTRICULAR BLOCK, SECOND DEGREE (13) Twbgz-yd-vzepgbb kidney injury Code(s): N17.9 - ACUTE KIDNEY FAILURE, UNSPECIFIED; N18.9 - CHRONIC KIDNEY DISEASE, UNSPECIFIED
--- NOTE | 2018-10-10 14:28 | PN ---
Progress Note, Physician History of Present Illness: Pt w/o CP, SOB, palpitations, dizziness. Pt w/o abd pain, nausea, vomitting, Pt's appetite is back to normal. - Current Medication List Current Medications: Active Medications Albuterol Sulfate (Ventolin 0.083% Nebulizer Soln -) 1 amp NEB Q6H PRN PRN Reason: SHORT OF BREATH/WHEEZING Aspirin (Ecotrin -) 81 mg PO DAILY [facility] Last Admin: 10/10/18 11:10 Dose: 81 mg Budesonide/Formoterol Fumarate (Symbicort 160/4.5mcg -) 2 puff IH BID [facility] Last Admin: 10/10/18 11:11 Dose: Not Given Clopidogrel Bisulfate (Plavix -) 75 mg PO DAILY [facility] Last Admin: 10/10/18 11:11 Dose: 75 mg Emollient Ointment (Aquaphor -) 1 applic TP BID [facility] Last Admin: 10/09/18 23:42 Dose: Not Given Insulin Aspart (Novolog Vial Sliding Scale -) 1 vial SQ [facility]; Protocol Last Admin: 10/10/18 14:04 Dose: Not Given Lidocaine (Lidoderm Patch -) 1 patch TP DAILY [facility] Last Admin: 10/10/18 11:10 Dose: 1 patch Miscellaneous (Lidoderm Patch Removal) 1 each MC DAILY@2200 [facility] Last Admin: 10/09/18 23:00 Dose: Not Given Nystatin (Mycostatin Cream -) 1 applic TP BID [facility] Last Admin: 10/10/18 11:11 Dose: Not Given Nystatin/Triamcinolone Acetonide (Mycolog Ii Ointment -) 1 applic TP BID [facility] Last Admin: 10/10/18 11:10 Dose: Not Given Oxycodone HCl (Roxicodone -) 5 mg PO Q6H PRN PRN Reason: PAIN LEVEL 7 - 10 Last Admin: 10/10/18 11:17 Dose: 5 mg Pantoprazole Sodium (Protonix -) 20 mg PO DAILY [facility] Last Admin: 10/10/18 11:11 Dose: 20 mg Polyethylene Glycol (Miralax (For Daily Use) -) 17 gm PO DAILY PRN PRN Reason: CONSTIPATION Tiotropium [place] (Spiriva Respimat) 2 puff IH DAILY [facility] Last Admin: 10/10/18 11:11 Dose: Not Given - Objective Vital Signs: Vital Signs Temperature 97.6 F 10/10/18 09:00 Pulse Rate 60 10/10/18 09:00 Respiratory Rate 20 10/10/18 09:00 Blood Pressure 133/68 10/10/18 09:00 O2 Sat by Pulse Oximetry (%) 91 L 10/10/18 09:00 Constitutional: Yes: No Distress, Calm Cardiovascular: Yes: Regular Rate and Rhythm, S1, S2 Respiratory: Yes: Regular, CTA Bilaterally. No: Rales Gastrointestinal: Yes: Normal Bowel Sounds, Soft. No: Hepatomegaly, Tenderness Edema: No Neurological: Yes: Alert, Oriented Labs: CBC, BMP 10/10/18 06:00 10/10/18 06:00 INR, PTT INR 1.43 (0.83-1.09) H 10/10/18 06:00 Problem List - Problems (1) THERESA (acute kidney injury) Code(s): N17.9 - ACUTE KIDNEY FAILURE, UNSPECIFIED (2) Elevated LFTs Code(s): R94.5 - ABNORMAL RESULTS OF LIVER FUNCTION STUDIES (3) Bradycardia Code(s): R00.1 - BRADYCARDIA, UNSPECIFIED (4) Anemia Code(s): D64.9 - ANEMIA, UNSPECIFIED (5) MARTIN on CPAP Code(s): G47.33 - OBSTRUCTIVE SLEEP APNEA (ADULT) (PEDIATRIC); Z99.89 - DEPENDENCE ON OTHER ENABLING MACHINES AND DEVICES (6) CHF (congestive heart failure) Code(s): I50.9 - HEART FAILURE, UNSPECIFIED (7) COPD with acute exacerbation Code(s): J44.1 - CHRONIC OBSTRUCTIVE PULMONARY DISEASE W (ACUTE) EXACERBATION (8) CVA (cerebral vascular accident) Code(s): I63.9 - CEREBRAL INFARCTION, UNSPECIFIED (9) Cellulitis of both lower extremities Code(s): L03.115 - CELLULITIS OF RIGHT LOWER LIMB; L03.116 - CELLULITIS OF LEFT LOWER LIMB (10) Diabetes mellitus Code(s): E11.9 - TYPE 2 DIABETES MELLITUS WITHOUT COMPLICATIONS (11) Elevated troponin I level Code(s): R74.8 - ABNORMAL LEVELS OF OTHER SERUM ENZYMES Assessment/Plan Kidney function is improving Liver function is improving Elevation of Trop I probable secondary to THERESA, rather than ACS; to monitor trend. Stable H/H Cardio and Renal consults are appreciated. s/p IVF; diuretics are on hold Hold meds than can worsen LFT, Creatinine Admitted to Telemetry; continue monitoring. GI consult AM Labs
[2018-10-10] MEDS: MINERAL OIL/PET HY-PHL TOPICAL OINTMENT 454 GM JAR TP SCH ×2 (14:30→21:06)
--- NOTE | 2018-10-10 15:22 | CONS ---
DATE OF CONSULTATION: 10/10/2018 REFERRING PHYSICIAN: Noemy Valle MD The patient is a 68-year-old white male well known to me from previous hospitalizations advanced COPD with chronic hypoxemic, hypercapnic respiratory failure, obstructive sleep apnea, chronic kidney disease, diabetes, hypertension, hemorrhoids, history of CVA, longstanding history of tobacco use, currently still occasional smoking, admitted to [facility] from [facility] secondary to lab abnormalities. Patient was noted at the [place] [facility] to have a potassium greater than 0.6, for which he was administered Kayexalate. He was then sent to the emergency room for the above. In the ER he was also noted to be bradycardic and have progressive renal insufficiency. At that time he was admitted to the telemetry unit for further management. Patient was evaluated by Dr. Verdugo for renal consultation. The patient had ojdev-kh-iahzlsj kidney disease due to intravascular volume depletion. He was also noted to have elevated LFTs. The patient was started on IV fluids with some improvement in his renal function. The patient at the current time denies any chest pain, has occasional shortness of breath. Denies any fevers or chills. Denies hemoptysis. PAST MEDICAL HISTORY: chronic kidney disease, obstructive sleep apnea, COPD, chronic hypoxemic, hypercapnic respiratory failure, history of CVA, diabetes. REVIEW OF SYSTEMS: Positive dyspnea, positive orthopnea. No chest pain, no palpitations, no cough, no hemoptysis, no abdominal pain. Positive lower extremity edema. CURRENT MEDICATIONS: Include Lidoderm, Symbicort, Mycolog, Spiriva, Aquaphor, albuterol, MiraLax, NovoLog, Ecotrin, Roxicodone, Mycostatin, and Protonix. PHYSICAL EXAMINATION: General: The patient is an obese male, well developed, well nourished, awake, in no acute respiratory distress. Vital Signs: He is currently afebrile. Blood pressure is 133/68. Respiratory rate is 20. O2 saturation is 94% on 4 L nasal cannula. HEENT: Exam is normocephalic, atraumatic. Neck: Supple. Heart: Irregular, S1, S2. Chest: Few scattered bilateral wheezes. Abdomen: Soft. Bowel sounds are positive. Extremities: Bilateral lower extremity edema. LABORATORY: WBC is 6.2, hemoglobin 8.4, hematocrit 26.2, with a platelet count of 219,000. Blood gas: pH 7.36, PCO2 of 64, PO2 of 48, a bicarbonate of 35, and a saturation of 77. That was on unknown quantity of oxygen. Chemistries: BUN is 40, creatinine 1.7. BNP is 18,248. CRP is 11.7. Troponin 0.57, most recent 0.43. Chest x-ray: Cardiomegaly. Mild pulmonary vascular congestion. Mild right pleural effusion. IMPRESSION: Lmebw-wn-pwqlhnr hypoxemic, hypercapnic respiratory failure secondary to: 1. Chronic obstructive pulmonary disease. 2. Tkowd-ly-gwdgfnw kidney injury. 3. Bradyarrhythmia. 4. Obstructive sleep apnea. 5. Hypertension. 6. History of cerebrovascular accident. 7. Positive troponins. PLAN: Inhaled bronchodilators, supplemental O2, BiPAP at night as well as as needed for increasing shortness of breath. IV fluids as per Cardiology and Renal. Monitor renal function, trend troponins. LG GREEN M.D. [id number]
--- NOTE | 2018-10-10 15:27 | CON.GI ---
Consult Consult Specialty:: Gastroenterology Referred by:: Dr. Valle Reason for Consultation:: Rectal bleeding, elevated LFTs - History of Present Illness Chief Complaint: Leg pain History of Present Illness: 68yo male h/o COPD (on 3L O2), CKD, DM, CVA, CHF, PAD s/p L fem-pop bypass on plavix, b/l LE cellulitis presents with abnormal labs asked to evaluate for rectal bleeding and elevated LFTs. Pt reports leg discomfort related to LE cellulitis prompting hospitalization, however per records, pt was advised admission due to abnormal labs per Dr. Valle. Pt noted to be hyperkalemia and bradycardic (40s-50s) on admission seen by cardiology thought possibly related to electrolyte disturbances with no acute cardiac findings. Pt was seen in ED 2 days with rectal bleeding however pt does not recall prior episodes. Reports some constipation and straining at times though denies rectal bleeding or melena. Appetite good, denies abdominal pain, n/v or fever/chills. Reports prior remote colonoscopy >10 years ago, findings unclear, report not currently available for review. Pt also unaware of LFT abnormality, reports heavy etoh use previously, 5-6 beers daily, last drink a few weeks ago per pt. No known family h/o GI malignancy. 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: CVA (no deficit, 5 years ago) Cardio/Vascular: Yes: CAD, HTN, Hyperlipdemia Pulmonary: Yes: COPD (on CPAP at night), O2 Dependent, Other (Cronic respiratory failure, on BIPAP at home) Renal/: Yes: Renal Failure (chronic) Infectious Disease: Yes: MRSA (in LE) Endocrine: Yes: Diabetes Mellitus Dermatology: Yes: Cellulitis (in LE) - Past Surgical History Past Surgical History: Yes: Stent - Alcohol/Substance Use Hx Alcohol Use: No History of Substance Use: reports: None - Smoking History Smoking history: Former smoker Have you smoked in the past 12 months: No Aproximately how many cigarettes per day: 20 If you are a former smoker, when did you quit?: 6 months - Social History Usual Living Arrangement: With Spouse ADL: Independent 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 History of Recent Travel: No Home Medications - Allergies Allergies/Adverse Reactions: Allergies Allergy/AdvReac Type Severity Reaction Status Date / Time amoxicillin trihydrate Allergy Unknown Verified 10/09/18 19:05 [From Augmentin] potassium clavulanate Allergy Unknown Verified 10/09/18 19:05 [From Augmentin] - Home Medications Home Medications: Ambulatory Orders Aspirin [ASA -] 81 mg PO DAILY 08/15/18 Atorvastatin Ca [Lipitor] 20 mg PO HS 08/15/18 Clopidogrel Bisulfate [Clopidogrel] 75 mg PO DAILY 08/15/18 Torsemide [Demadex -] 10 mg PO DAILY 08/15/18 Acetaminophen [Tylenol .Regular Strength -] 650 mg PO Q6H PRN tablet 08/24/18 Albuterol 0.083% Nebulizer [place] [Ventolin 0.083% Nebulizer Soln -] 1 amp NEB Q6H PRN amp 08/24/18 Budesonide/Formeterol Fumarate [SYMBICORT 160/4.5mcg -] 2 puff IH BID inhaler 08/24/18 Lidocaine 5% Patch [Lidoderm -] 1 patch TP DAILY patch 08/24/18 Lidocaine Patch Removal [Lidoderm Patch Removal] 1 each MC DAILY@2200 each 12/10 Mineral Oil/Pet Hy-Phl [Aquaphor -] 1 applic TP BID jar 08/24/18 Nystatin/Triamcinolone Top Oin [Mycolog II -] 1 applic TP BID applic 08/24/18 oxyCODONE HCL [Roxicodone -] 5 mg PO Q6H PRN #40 tablet MDD 4 08/24/18 Citalopram Hydrobromide [Celexa -] 20 mg PO DAILY tablet 09/25/18 Bismuth Tribromoph/Petrolatum [Xeroform Petrolatum Dress] 1 each TP DAILY Insulin Sliding Scale [Novolog Vial Sliding Scale -] 1 vial SQ ACHS PRN Nystatin Cream [Mycostatin] 1 applic TP BID 10/09/18 Pen Needle, Diabetic [Novofine Plus] 1 each MC ASDIR 10/09/18 Tiotropium [place] [Spiriva Respimat] 2 puff IH DAILY 10/09/18 Family Disease History - Family Disease History Family Disease History: Diabetes: Daughter Review of Systems - Review of Systems Constitutional: reports: No Symptoms Cardiovascular: reports: No Symptoms Respiratory: reports: Cough Gastrointestinal: reports: No Symptoms Neurological: reports: No Symptoms Physical Exam-GI Vital Signs: Vital Signs Temperature 97.9 F 10/10/18 14:35 Pulse Rate 68 10/10/18 14:35 Respiratory Rate 20 10/10/18 14:35 Blood Pressure 132/86 10/10/18 14:35 O2 Sat by Pulse Oximetry (%) 91 L 10/10/18 09:00 Constitutional: Yes: Well Nourished, No Distress Cardiovascular: Yes: WNL, Regular Rate and Rhythm Respiratory: Yes: WNL, Regular Gastrointestinal Inspection: Yes: WNL, Other (Abd soft, nt, nd) ...Rectal Exam: Yes: Other (brown stool, no blood, no appreciable or obvious hemorrhoids) Labs: CBC, BMP 10/10/18 06:00 10/10/18 06:00 INR, PTT INR 1.43 (0.83-1.09) H 10/10/18 06:00 Imaging - Results Ultrasound: Report Reviewed Problem List - Problems (1) Rectal bleeding Assessment/Plan: 68yo male h/o COPD (on 3L O2), CKD, DM, CVA, CHF, PAD s/p L fem-pop bypass on plavix, b/l LE cellulitis presents with hyperkalemia and bradycardia asked to evaluate for rectal bleeding and elevated LFTs. Microcytic anemia noted, elevated ferritin, remainder of iron studies pending. Remote prior colonoscopy > 10 years ago. No further overt GI bleeding reported and brown stool on rectal exam. -Continue to closely monitor Hb and for evidence of bleeding -Etiology may be hemorrhoidal however in view of microcytic anemia with remote prior colonoscopy, would recommend endoscopic evaluation once pt further optimized (electrolytes normalized and HR stable) r/o underlying polyps or mass. -Discussed with pts , Harriet who states she would like to discuss further with her daughter in law (physician) prior to proceeding -In the interim, recommend cardiology clearance and to clarify if plavix could be held pre-procedure. If not able to hold, colonoscopy could be pursued though with limited interventions (ie polypectomy). -If overt GI bleeding with acute drop in Hb not responding to prbc transfusion please call GI for possible more urgent intervention. Code(s): K62.5 - HEMORRHAGE OF ANUS AND RECTUM (2) Elevated LFTs Assessment/Plan: Predominantly transaminitis (normal bili) s/p US revealing hepatosplenomegaly with fatty infiltration and gallstone with possible wall thickening. No abdominal pain, fever or leucocytosis. Unclear exact etiology for new onset LFT elevation now downtrending, possibly medications in setting of possible underlying alcoholic liver disease vs congestive hepatopathy vs autoimmune process though low suspicion. Mild coagulopathy and low albumin noted though normal plts. Otherwise no clinical stigmata of chronic liver disease or cirrhosis. -Continue to monitor LFT trend and coags -Recommend HIDA scan in view of US findings r/o cholecystitis (though low clinical suspicion) -Await results of hepatitis panel -Check JORDAN, ASMA, AMA -Hold statin for now and avoid other nonessential hepatotoxic medications -Discussed etoh abstinence -Further recommendations pending above results Discussed with Dr. Valle. Code(s): R94.5 - ABNORMAL RESULTS OF LIVER FUNCTION STUDIES
[2018-10-10] MEDS: ALBUTEROL SO4 0.083% IH SOL 2.5 MG/3 ML VIAL.NEB. NEB PRN ×2 (17:56→22:45)
--- NOTE | 2018-10-10 18:40 | CONSULT ---
Consult Consult Specialty:: Hematology-Oncology Referred by:: Dr. Valle Reason for Consultation:: Anemia - History of Present Illness Chief Complaint: Admitted for abnormal labs, pt c/o leg pain History of Present Illness: 68 yr old man with hx of CKD, MARTIN, COPD, hx of CVA, DM, chronic anemia, current everyday smoker and ETOH user, admitted for hyperkalemia and bradycardia. Pt complains of LE pain and thinks that is why he was admitted. denies nausea, vomiting, weight loss, diarrhea, constipation, chest pain, cough , chest pain, fevers. Pt is an unreliable historian. further HPI and medical hx obtained from chart review. Pt was referred to ER for high potassium at [facility] (over 6.0). repeat K level in the ER was normal but pt was found to have THERESA, elevated LFTs and bradycardia. Pt is admitted to Telemetry for further evaluation. 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) Cardio/Vascular: Yes: CAD, HTN, Hyperlipdemia Pulmonary: Yes: COPD (on CPAP at night), O2 Dependent, Other (Cronic respiratory failure, on BIPAP at home) Renal/: Yes: Renal Failure (chronic) Infectious Disease: Yes: MRSA (in LE) Endocrine: Yes: Diabetes Mellitus Dermatology: Yes: Cellulitis (in LE) - Past Surgical History Past Surgical History: Yes: Stent - Alcohol/Substance Use Hx Alcohol Use: No History of Substance Use: reports: None - Smoking History Smoking history: Former smoker Have you smoked in the past 12 months: No Aproximately how many cigarettes per day: 20 If you are a former smoker, when did you quit?: 6 months - Social History Usual Living Arrangement: With Spouse ADL: Independent 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 History of Recent Travel: No Home Medications - Allergies Allergies/Adverse Reactions: Allergies Allergy/AdvReac Type Severity Reaction Status Date / Time amoxicillin trihydrate Allergy Unknown Verified 10/09/18 19:05 [From Augmentin] potassium clavulanate Allergy Unknown Verified 10/09/18 19:05 [From Augmentin] - Home Medications Home Medications: Ambulatory Orders Aspirin [ASA -] 81 mg PO DAILY 08/15/18 Atorvastatin Ca [Lipitor] 20 mg PO HS 08/15/18 Clopidogrel Bisulfate [Clopidogrel] 75 mg PO DAILY 08/15/18 Torsemide [Demadex -] 10 mg PO DAILY 08/15/18 Acetaminophen [Tylenol .Regular Strength -] 650 mg PO Q6H PRN tablet 08/24/18 Albuterol 0.083% Nebulizer [place] [Ventolin 0.083% Nebulizer Soln -] 1 amp NEB Q6H PRN amp 08/24/18 Budesonide/Formeterol Fumarate [SYMBICORT 160/4.5mcg -] 2 puff IH BID inhaler 08/24/18 Lidocaine 5% Patch [Lidoderm -] 1 patch TP DAILY patch 08/24/18 Lidocaine Patch Removal [Lidoderm Patch Removal] 1 each MC DAILY@2200 each 12/10 Mineral Oil/Pet Hy-Phl [Aquaphor -] 1 applic TP BID jar 08/24/18 Nystatin/Triamcinolone Top Oin [Mycolog II -] 1 applic TP BID applic 08/24/18 oxyCODONE HCL [Roxicodone -] 5 mg PO Q6H PRN #40 tablet MDD 4 08/24/18 Citalopram Hydrobromide [Celexa -] 20 mg PO DAILY tablet 09/25/18 Bismuth Tribromoph/Petrolatum [Xeroform Petrolatum Dress] 1 each TP DAILY Insulin Sliding Scale [Novolog Vial Sliding Scale -] 1 vial SQ ACHS PRN Nystatin Cream [Mycostatin] 1 applic TP BID 10/09/18 Pen Needle, Diabetic [Novofine Plus] 1 each MC ASDIR 10/09/18 Tiotropium [place] [Spiriva Respimat] 2 puff IH DAILY 10/09/18 Family Disease History - Family Disease History Family Disease History: Diabetes: Daughter Review of Systems - Review of Systems Constitutional: denies: Fever, Lethargy, Unintentional Wgt. Loss HENT: denies: Difficult Swallowing Cardiovascular: reports: Shortness of Breath. denies: Chest Pain Gastrointestinal: denies: Abdominal Pain, Constipation, Diarrhea, Vomiting Genitourinary: denies: Dysuria Physical Exam Vital Signs: Vital Signs Temperature 97.9 F 10/10/18 17:39 Pulse Rate 68 10/10/18 17:39 Respiratory Rate 20 10/10/18 17:39 Blood Pressure 134/82 10/10/18 17:39 O2 Sat by Pulse Oximetry (%) 91 L 10/10/18 09:00 Constitutional: Yes: No Distress, Calm, Obese HENT: Yes: Atraumatic, Normocephalic Neck: Yes: Supple, Trachea Midline Cardiovascular: Yes: Bradycardia, S1, S2 Respiratory: Yes: Cough, Diminished, Poor Air Entry Gastrointestinal: Yes: Normal Bowel Sounds, Soft, Abdomen, Obese Extremities: Yes: Erythema Edema: LLE: 2+, RLE: 2+ Integumentary: Yes: Erythema, Pressure Ulcer, Rash (groin) Wound/Incision: Yes: Dressing Dry and Intact (b/l lower extremities) Neurological: Yes: Alert, Oriented Psychiatric: Yes: Alert, Oriented Labs: CBC, BMP 10/10/18 06:00 10/10/18 06:00 Assessment/Plan 68 yr old man with multiple chronic co-morbidities with active nicotine and ETOH use. Problem List: CKD with THERESA Elevatad LFTs Anemia HTN COPD DM A/P Anemia w/u pending, current results of serum iron and ferritin suggestive of anemia of MAHOGANY with underlying anemia of chronic disease given multiple co- morbidities. Await further results for full assessment trend labs
[2018-10-10] MEDS: LIDOCAINE PATCH REMOVAL MC SCH (21:06)
[2018-10-11 03:17] LABS: HEP.C VIRUS AB 0.2 s/co ratio (0.0-0.9)
[2018-10-11] MEDS: INSULIN SLIDING SCALE (NOVOLOG) 1 VIAL SQ SCH ×4 (06:01→21:28)
--- NOTE | 2018-10-11 06:23 | PN ---
Progress Note, Physician Chief Complaint: in bed feels better no new c/o eats and drinks fluids po labs better consults tests meds reviewed d/w pt and will call pt's - Current Medication List Current Medications: Active Medications Albuterol Sulfate (Ventolin 0.083% Nebulizer Soln -) 1 amp NEB Q6H PRN PRN Reason: SHORT OF BREATH/WHEEZING Last Admin: 10/10/18 22:45 Dose: 1 amp Aspirin (Ecotrin -) 81 mg PO DAILY [facility] Last Admin: 10/10/18 11:10 Dose: 81 mg Budesonide/Formoterol Fumarate (Symbicort 160/4.5mcg -) 2 puff IH BID [facility] Last Admin: 10/10/18 21:15 Dose: 2 puff Clopidogrel Bisulfate (Plavix -) 75 mg PO DAILY [facility] Last Admin: 10/10/18 11:11 Dose: 75 mg Emollient Ointment (Aquaphor -) 1 applic TP BID [facility] Last Admin: 10/10/18 21:06 Dose: Not Given Insulin Aspart (Novolog Vial Sliding Scale -) 1 vial SQ ACHS [facility]; Protocol Last Admin: 10/11/18 06:01 Dose: Not Given Lidocaine (Lidoderm Patch -) 1 patch TP DAILY [facility] Last Admin: 10/10/18 11:10 Dose: 1 patch Miscellaneous (Lidoderm Patch Removal) 1 each MC DAILY@2200 [facility] Last Admin: 10/10/18 21:06 Dose: Not Given Nystatin (Mycostatin Cream -) 1 applic TP BID [facility] Last Admin: 10/10/18 21:08 Dose: Not Given Nystatin/Triamcinolone Acetonide (Mycolog Ii Ointment -) 1 applic TP BID [facility] Last Admin: 10/10/18 21:07 Dose: Not Given Oxycodone HCl (Roxicodone -) 5 mg PO Q6H PRN PRN Reason: PAIN LEVEL 7 - 10 Last Admin: 10/10/18 11:17 Dose: 5 mg Pantoprazole Sodium (Protonix -) 20 mg PO DAILY [facility] Last Admin: 10/10/18 11:11 Dose: 20 mg Polyethylene Glycol (Miralax (For Daily Use) -) 17 gm PO DAILY PRN PRN Reason: CONSTIPATION Tiotropium [place] (Spiriva Respimat) 2 puff IH DAILY [facility] Last Admin: 10/10/18 11:11 Dose: Not Given - Objective Vital Signs: Vital Signs Temperature 97.5 F L 10/11/18 06:00 Pulse Rate 69 10/11/18 06:00 Respiratory Rate 18 10/11/18 06:00 Blood Pressure 144/63 10/11/18 06:00 O2 Sat by Pulse Oximetry (%) 91 L 10/10/18 09:00 Constitutional: Yes: No Distress, Calm Eyes: Yes: Conjunctiva Clear HENT: Yes: Atraumatic Neck: Yes: Supple Cardiovascular: Yes: Regular Rate and Rhythm Respiratory: Yes: Diminished Gastrointestinal: Yes: Soft. No: Tenderness Genitourinary: No: Hematuria Musculoskeletal: No: Joint Stiffness, Joint Swelling Extremities: No: Cold, Cool Edema: Yes (chronic legs venous) Integumentary: Yes: Rash, Venous Stasis Changes (both legs) Neurological: Yes: WNL, Alert, Oriented ...Motor Strength: WNL Psychiatric: Yes: WNL, Alert, Oriented. No: Agitated, Suicidal Ideation Labs: INR, PTT INR 1.43 (0.83-1.09) H 10/10/18 06:00 - ....Imaging Other: Report Reviewed Assessment/Plan ASHD PVD DM OA DJD CRF legs cellulitis and chronic venous insufficiency admitted with ARF/CRF dehydration, high LFTs, one episode of BRBPR and anemia, + troponins. IVF; seen by GI, renal and cardiology improved continue meds; f/u labs falls PFX decubs PFX legs wounds care f/u labs, cx DVT pfx pt has advanced cataracts said he has some blurroed vision for months, d/w pt's PCP dr Louise he saw dr Livia Abrams and he will f/u with her as outpt
[2018-10-11 06:38] LABS: BASO % 0.7 % (0-2.0); EOS % 4.5 % (0-4.5); HEMATOCRIT 27.8 % (35.4-49); HEMOGLOBIN 8.8 GM/dL (11.7-16.9); LYMPH % 6.5 % (8-40); MCH 24.9 pg (25.7-33.7); MCHC 31.6 g/dl (32.0-35.9); MEAN CELL VOLUME 78.9 fl (80-96); MEAN PLT VOLUME 8.4 fl (7.5-11.1); MONO % 10.8 % (3.8-10.2); NEUT % 77.5 % (42.8-82.8); PLATELET COUNT 241 K/MM3 (134-434); RBC 3.52 M/mm3 (4.00-5.60); RDW 18.5 % (11.9-15.9); WHITE BLOOD COUNT 7.6 K/mm3 (4.0-10.0)
[2018-10-11] MEDS: ALBUTEROL SO4 0.083% IH SOL 2.5 MG/3 ML VIAL.NEB. NEB PRN ×2 (06:38→19:45)
--- NOTE | 2018-10-11 06:50 | PN ---
Teaching Attending Note Name of Resident: Romie Hays ATTENDING PHYSICIAN STATEMENT I saw and evaluated the patient. I reviewed the resident's note and discussed the case with the resident. I agree with the resident's findings and plan as documented. SUBJECTIVE:Patient seen and examined Enters with abnormal LFT's , recent rectal bleeding and bradycardia. Patient is a poor historian Multiple co-morbid medical problems : COPD (on 3L O2), CKD, DM, CVA, CHF, PAD s/p L fem-pop bypass on plavix, b/l LE cellulitis , obesity Ongoing smoker and drinker . States he smokes less than one pack per day and last drank 3-4 weeks earlier. Various notes describe quantitiy of alcohol ingestion Last Vital Signs Temp Pulse Resp BP Pulse Ox 97.5 F L 69 18 144/63 91 L 10/11/18 06:00 10/11/18 06:00 10/11/18 06:00 10/11/18 06:00 10/10/18 09:00 HEENT: [place], EOM Intact Current Medications Generic Name Dose Route Start Last Admin Trade Name Freq PRN Reason Stop Dose Admin Albuterol Sulfate 1 amp 10/09/18 20:38 10/11/18 06:38 Ventolin 0.083% Nebulizer Soln - NEB 1 amp Q6H PRN Administration SHORT OF BREATH/WHEEZING Aspirin 81 mg 10/10/18 10:00 10/10/18 11:10 Ecotrin - PO 81 mg DAILY [facility] Administration Budesonide/Formoterol Fumarate 2 puff 10/09/18 22:00 10/10/18 21:15 Symbicort 160/4.5mcg - IH 2 puff BID [facility] Administration Clopidogrel Bisulfate 75 mg 10/10/18 10:00 10/10/18 11:11 Plavix - PO 75 mg DAILY [facility] Administration Emollient Ointment 1 applic 10/09/18 22:00 10/10/18 21:06 Aquaphor - TP Not Given BID [facility] Insulin Aspart 1 vial 10/09/18 22:00 10/11/18 06:01 Novolog Vial Sliding Scale - SQ Not Given ACHS [facility] Protocol Lidocaine 1 patch 10/10/18 10:00 10/10/18 11:10 Lidoderm Patch - TP 1 patch DAILY [facility] Administration Miscellaneous 1 each 10/09/18 22:00 10/10/18 21:06 Lidoderm Patch Removal MC Not Given DAILY@2200 [facility] Nystatin 1 applic 10/09/18 22:00 10/10/18 21:08 Mycostatin Cream - TP Not Given BID [facility] Nystatin/Triamcinolone Acetonide 1 applic 10/09/18 22:00 10/10/18 21:07 Mycolog Ii Ointment - TP Not Given BID [facility] Oxycodone HCl 5 mg 10/10/18 08:52 10/10/18 11:17 Roxicodone - PO 5 mg Q6H PRN Administration PAIN LEVEL 7 - 10 Pantoprazole Sodium 20 mg 10/10/18 10:00 10/10/18 11:11 Protonix - PO 20 mg DAILY [facility] Administration Polyethylene Glycol 17 gm 10/09/18 21:29 Miralax (For Daily Use) - PO DAILY PRN CONSTIPATION Tiotropium [place] 2 puff 10/10/18 10:00 10/10/18 11:11 Spiriva Respimat IH Not Given DAILY [facility] Oropharynx: No thrush, No mucositis Neck: Supple Nodes: Without adenopathy Cor: RSR, No murmurs, No gallops Lungs:diminished breath sounds bilaterally Abd: Soft, Normal bowel sounds, No organomegaly Ext LE edema Skin:stasis LE's . 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 Will follow . ASSESSMENT AND PLAN:
[2018-10-11 07:09] LABS: ALBUMIN 2.6 g/dl (3.4-5.0); ALK PHOS 110 U/L (45-117); ANION GAP 3 MMOL/L (8-16); BILIRUBIN,TOTAL 0.6 mg/dL (0.2-1); BLOOD UREA NITROGEN 35 mg/dL (7-18); CHLORIDE 100 mmol/L (98-107); CO2 37 mmol/L (21-32); CREATININE 1.4 mg/dL (0.55-1.3); GLUCOSE,RANDOM 89 mg/dL (74-106); MAGNESIUM 2.6 mg/dL (1.8-2.4); PHOSPHOROUS 4.7 mg/dL (2.5-4.9); POTASSIUM 4.8 mmol/L (3.5-5.1); SGOT/AST 181 U/L (15-37); SGPT/ALT 278 U/L (13-61); SODIUM 140 mmol/L (136-145); TOT PROT 6.6 g/dl (6.4-8.2)
[2018-10-11] MEDS: BUDESONIDE/FORMETEROL FUMARATE 160/4.5 mcg INHALER IH SCH ×2 (10:25→21:28)
--- NOTE | 2018-10-11 10:43 | PN ---
Progress Note (short form) - Note Progress Note: s: no cp sob palps dizzy o: Vital Signs Period Temp Pulse Resp BP Sys/Mullen Pulse Ox Last 24 Hr 97.5 F-97.9 F 67-69 18-20 122-144/63-86 Constitutional: Yes: No Distress, Calm Eyes: Yes: Conjunctiva Clear, Neck: Yes: Supple, Trachea Midline Respiratory: Yes: cta bl nl eff Gastrointestinal: Yes: Normal Bowel Sounds, Soft Cardiovascular: Yes: Regular Rate and Rhythm JVD: No Carotid Bruit: No Heart Sounds: Yes: S1, S2 Extremities: Yes: Erythema, Other (erythema bilateral feet and ankles with weeping from wounds) Edema: trace/1+ le edema bl Peripheral Pulses: 1+ Left Doralis Pedis, 1+ Right Dorsalis Pedis Integumentary: no jaundice diaphoresis aaox3 Current Medications Generic Name Dose Route Start Last Admin Trade Name Freq PRN Reason Stop Dose Admin Albuterol Sulfate 1 amp 10/09/18 20:38 10/11/18 06:38 Ventolin 0.083% Nebulizer Soln - NEB 1 amp Q6H PRN Administration SHORT OF BREATH/WHEEZING Aspirin 81 mg 10/10/18 10:00 10/10/18 11:10 Ecotrin - PO 81 mg DAILY [facility] Administration Budesonide/Formoterol Fumarate 2 puff 10/09/18 22:00 10/10/18 21:15 Symbicort 160/4.5mcg - IH 2 puff BID [facility] Administration Clopidogrel Bisulfate 75 mg 10/10/18 10:00 10/10/18 11:11 Plavix - PO 75 mg DAILY [facility] Administration Emollient Ointment 1 applic 10/09/18 22:00 10/10/18 21:06 Aquaphor - TP Not Given BID [facility] Insulin Aspart 1 vial 10/09/18 22:00 10/11/18 06:01 Novolog Vial Sliding Scale - SQ Not Given ACHS [facility] Protocol Lidocaine 1 patch 10/10/18 10:00 10/10/18 11:10 Lidoderm Patch - TP 1 patch DAILY [facility] Administration Miscellaneous 1 each 10/09/18 22:00 10/10/18 21:06 Lidoderm Patch Removal MC Not Given DAILY@2200 [facility] Nystatin 1 applic 10/09/18 22:00 10/10/18 21:08 Mycostatin Cream - TP Not Given BID [facility] Nystatin/Triamcinolone Acetonide 1 applic 10/09/18 22:00 10/10/18 21:07 Mycolog Ii Ointment - TP Not Given BID [facility] Oxycodone HCl 5 mg 10/10/18 08:52 10/10/18 11:17 Roxicodone - PO 5 mg Q6H PRN Administration PAIN LEVEL 7 - 10 Pantoprazole Sodium 20 mg 10/10/18 10:00 10/10/18 11:11 Protonix - PO 20 mg DAILY [facility] Administration Polyethylene Glycol 17 gm 10/09/18 21:29 Miralax (For Daily Use) - PO DAILY PRN CONSTIPATION Tiotropium [place] 2 puff 10/10/18 10:00 10/10/18 11:11 Spiriva Respimat IH Not Given DAILY [facility] CBC, BMP 10/11/18 06:00 10/11/18 06:00 echo 12/2016: nl lv/rv, mild lae, mild mr, mild-mod tr, possible mild as, mild phtn exercise mibi 01/02: no ischemia at 80% mphr EKG: sinus, LBBB, mobitz 1 (similar to prior EKGs) tele: sinus, LBBB, mobitz I a/p: 68M h/o CVA, HTN, HLD, COPD (on 3L O2), CKD, DM, TIA, chronic diastolic hf /venous insufficiency, 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 bradycardia, Abnormal EKG, mobitz 1, LBBB: - chronic findings, has had prior event monitors in clinic showing mobitz 1 without significant pauses - bradycardia likely in setting of hyperkalemia, appears to have improved with correction of K - avoid AV arsh blocking agents - monitoring on tele elevated trop - borderline trop level with flat trend in setting of THERESA - no chest pain - not c/w acs COPD - seems stable presently chronic venous insuff/LE edema, recurrent cellulitis: - manage per primary PAD: -prior h/o left fem-pop bypass, cont asa, statin. no clear indication for plavix, can stop now, especially in setting of anemia. chronic diastolic CHF -echoes have been unremarkable or very TDS in past, most recent 12/2016 was unremarkable - BNP elevated, however in setting of THERESA, appears euvolemic, no dyspnea -holding torsemide in setting of THERESA, defer diuretics hyperkalemia - manage per primary THERESA - renal consulted elevated LFTs - GI consulted htn: -stable, controlled hld: -cont statin h/o TIA (2003): -on ASA, statin for sec prevention, cont same anemia: -no clear indication for plavix, can stop now, especially in setting of anemia. -he is on asa for PAD, can be held temporarily if needed -no cardiac contraindications to egd/foc if needed
[2018-10-11] MEDS: TIOTROPIUM BROMIDE 2.5 MCG (SPIRIVA) RESPIMAT INHALER IH SCH (10:50)
[2018-10-11] MEDS: ASPIRIN COATED 81 MG TABLET.EC PO SCH (11:25)
[2018-10-11] MEDS: PANTOPRAZOLE 20 MG TABLET (FP) PO SCH (11:25)
[2018-10-11] MEDS: LIDOCAINE 5% TOPICAL PATCH TP SCH (11:28)
[2018-10-11] MEDS: NYSTATIN 100,000 UNIT/GM TOPICAL CREAM 15 GM TUBE TP SCH ×2 (11:29→21:29)
[2018-10-11] MEDS: NYSTATIN/TRIAMCINOLONE TOPICAL OINTMENT 15 GM TUBE TP SCH ×2 (11:29→21:29)
[2018-10-11] MEDS: MINERAL OIL/PET HY-PHL TOPICAL OINTMENT 454 GM JAR TP SCH ×2 (11:31→21:30)
--- NOTE | 2018-10-11 12:24 | PN ---
Progress Note (short form) - Note Progress Note: Renal follow up for THERESA on CKD Pt seen and examined at the bedside awake and alert complains of back and rib pain making urine tolerating oral diet Vital Signs Temperature 97.5 F L 10/11/18 06:00 Pulse Rate 69 10/11/18 06:00 Respiratory Rate 18 10/11/18 06:00 Blood Pressure 144/63 10/11/18 06:00 O2 Sat by Pulse Oximetry (%) 91 L 10/10/18 09:00 Intake & Output 10/08/18 10/09/18 10/10/18 10/11/18 23:59 23:59 23:59 23:59 Intake Total 1210 120 Output Total 200 Balance 1010 120 Weight 108.862 kg 117.39 kg NAD + edema in LE CBC, BMP 10/11/18 06:00 10/11/18 06:00 Current Medications Albuterol Sulfate (Ventolin 0.083% Nebulizer Soln -) 1 amp NEB Q6H PRN PRN Reason: SHORT OF BREATH/WHEEZING Last Admin: 10/11/18 06:38 Dose: 1 amp Aspirin (Ecotrin -) 81 mg PO DAILY [facility] Last Admin: 10/11/18 11:25 Dose: 81 mg Budesonide/Formoterol Fumarate (Symbicort 160/4.5mcg -) 2 puff IH BID [facility] Last Admin: 10/11/18 10:25 Dose: 2 puff Emollient Ointment (Aquaphor -) 1 applic TP BID [facility] Last Admin: 10/11/18 11:31 Dose: 1 applic Insulin Aspart (Novolog Vial Sliding Scale -) 1 vial SQ ACHS [facility]; Protocol Last Admin: 10/11/18 11:30 Dose: Not Given Lidocaine (Lidoderm Patch -) 1 patch TP DAILY [facility] Last Admin: 10/11/18 11:28 Dose: 1 patch Miscellaneous (Lidoderm Patch Removal) 1 each MC DAILY@2200 [facility] Last Admin: 10/10/18 21:06 Dose: Not Given Nystatin (Mycostatin Cream -) 1 applic TP BID [facility] Last Admin: 10/11/18 11:29 Dose: 1 applic Nystatin/Triamcinolone Acetonide (Mycolog Ii Ointment -) 1 applic TP BID [facility] Last Admin: 10/11/18 11:29 Dose: 1 applic Oxycodone HCl (Roxicodone -) 5 mg PO Q6H PRN PRN Reason: PAIN LEVEL 7 - 10 Last Admin: 10/10/18 11:17 Dose: 5 mg Pantoprazole Sodium (Protonix -) 20 mg PO DAILY [facility] Last Admin: 10/11/18 11:25 Dose: 20 mg Polyethylene Glycol (Miralax (For Daily Use) -) 17 gm PO DAILY PRN PRN Reason: CONSTIPATION Tiotropium [place] (Spiriva Respimat) 2 puff IH DAILY [facility] Last Admin: 10/10/18 11:11 Dose: Not Given 68 year old gentleman with hx of CKD, MARTIN, COPD, CVA, DM who was sent to the [place] from [place] for hyperkalemia and found to have THERESA And acute liver injury. #THERESA on CKD likely due to intravascular volume depletion #Abnormal LFT's/Acute liver injury #Chronic LE edema #Anemia Renal function now improved would continue to monitor off IVF and on oral intake alone would continue to hold diuretics until tomorrow and can resume if renal function stable LFT's improved overall but still elevated Trend renal function and electrolytes Thank you Kartik Escobedo DO
--- NOTE | 2018-10-11 14:07 | PN ---
Progress Note (short form) - Note Progress Note: PULMONARY States breathing is stable. Minimal cough and wheezing. Vital Signs Period Temp Pulse Resp BP Sys/Mullen Pulse Ox Last 24 Hr 97.5 F-97.9 F 67-69 18-20 122-144/63-86 Gen: NAD at rest Heart: RRR Lung: decreased breath sounds at the bases Abd: soft, nontender Ext: + edema CBC, BMP 10/11/18 06:00 10/11/18 06:00 Active Medications Albuterol Sulfate (Ventolin 0.083% Nebulizer Soln -) 1 amp NEB Q6H PRN PRN Reason: SHORT OF BREATH/WHEEZING Last Admin: 10/11/18 06:38 Dose: 1 amp Aspirin (Ecotrin -) 81 mg PO DAILY [facility] Last Admin: 10/11/18 11:25 Dose: 81 mg Budesonide/Formoterol Fumarate (Symbicort 160/4.5mcg -) 2 puff IH BID [facility] Last Admin: 10/11/18 10:25 Dose: 2 puff Emollient Ointment (Aquaphor -) 1 applic TP BID [facility] Last Admin: 10/11/18 11:31 Dose: 1 applic Insulin Aspart (Novolog Vial Sliding Scale -) 1 vial SQ ACHS [facility]; Protocol Last Admin: 10/11/18 11:30 Dose: Not Given Lidocaine (Lidoderm Patch -) 1 patch TP DAILY [facility] Last Admin: 10/11/18 11:28 Dose: 1 patch Miscellaneous (Lidoderm Patch Removal) 1 each MC DAILY@2200 [facility] Last Admin: 10/10/18 21:06 Dose: Not Given Nystatin (Mycostatin Cream -) 1 applic TP BID [facility] Last Admin: 10/11/18 11:29 Dose: 1 applic Nystatin/Triamcinolone Acetonide (Mycolog Ii Ointment -) 1 applic TP BID [facility] Last Admin: 10/11/18 11:29 Dose: 1 applic Oxycodone HCl (Roxicodone -) 5 mg PO Q6H PRN PRN Reason: PAIN LEVEL 7 - 10 Last Admin: 10/10/18 11:17 Dose: 5 mg Pantoprazole Sodium (Protonix -) 20 mg PO DAILY [facility] Last Admin: 10/11/18 11:25 Dose: 20 mg Polyethylene Glycol (Miralax (For Daily Use) -) 17 gm PO DAILY PRN PRN Reason: CONSTIPATION Tiotropium [place] (Spiriva Respimat) 2 puff IH DAILY [facility] Last Admin: 10/10/18 11:11 Dose: Not Given A/P s/p Fall Bradycardia HTN DM COPD Chronic Hypoxic Respiratory Failure PAD h/o CVA Elevated LFTs Anemia - inhaled bronchodilators - O2 to keep Spo2 >90% - can defer systemic steroids at this time - DVT prophylaxis
[2018-10-11 15:10] VITALS: BMI 41.6
--- NOTE | 2018-10-11 19:03 | PN ---
GI Progress Note Subjective: No acute events Plavix held by cardiology today. Note states not indictated LFts were normal 10/07/18 Pulmonary stated that breathing is stable - Objective Constitutional: Calm Eyes: No: Sclera Icterus Cardiovascular: Yes: Bradycardia Respiratory: Yes: Poor Air Entry, Other (purse-lipped breathing) Gastrointestinal Inspection: No: Distention ...Auscultate: Yes: Normoactive Bowel Sounds ...Palpate: No: Tenderness Edema: Yes Edema: LLE: 2+, RLE: 2+ Neurological: Yes: Alert Labs: CBC, BMP 10/11/18 06:00 10/11/18 06:00 INR, PTT INR 1.43 (0.83-1.09) H 10/10/18 06:00 Problem List - Problems (1) Anemia Assessment/Plan: No overt bleeding Awaiting family decision re: proceeding with procedures Would wait 5 days for plavix effect to wear off for elective procedures Code(s): D64.9 - ANEMIA, UNSPECIFIED (2) Elevated LFTs Assessment/Plan: Transaminitis: not present 10/07 at time of ER visit. Question if reactive Continue to monitor Avoid hepatotoxic agents Code(s): R94.5 - ABNORMAL RESULTS OF LIVER FUNCTION STUDIES
[2018-10-11] MEDS ORDERED: methylPREDNISolone NA SUCC 125 MG/2 ML VIAL ONE (21:26)
[2018-10-11] MEDS: LIDOCAINE PATCH REMOVAL MC SCH (21:29)
[2018-10-11] MEDS: methylPREDNISolone NA SUCC 40 MG/1 ML VIAL IVPUSH SCH (22:08)
[2018-10-11] MEDS ORDERED: FUROSEMIDE 40 MG/4 ML INJECTABLE VIAL IVPUSH ONE (22:25)
[2018-10-11] MEDS: HEPARIN NA (PORCINE) 5,000 UNITS/ML 1ML VIAL SQ SCH (22:36)
[2018-10-11] MEDS: CLOPIDOGREL BISULFATE 75 MG TABLET (FP) PO SCH (23:48)
[2018-10-12] MEDS: INSULIN SLIDING SCALE (NOVOLOG) 1 VIAL SQ SCH ×4 (06:09→20:59)
[2018-10-12] MEDS: ALBUTEROL SO4 0.083% IH SOL 2.5 MG/3 ML VIAL.NEB. NEB PRN ×2 (07:25→21:07)
[2018-10-12 08:22] LABS: ANION GAP 7 MMOL/L (8-16); BLOOD UREA NITROGEN 31 mg/dL (7-18); CALCIUM 8.3 mg/dL (8.5-10.1); CHLORIDE 99 mmol/L (98-107); CO2 35 mmol/L (21-32); CREATININE 1.2 mg/dL (0.55-1.3); GLUCOSE,RANDOM 161 mg/dL (74-106); MAGNESIUM 2.6 mg/dL (1.8-2.4); POTASSIUM 4.9 mmol/L (3.5-5.1); SODIUM 141 mmol/L (136-145)
--- NOTE | 2018-10-12 08:29 | PN ---
Progress Note, Physician Chief Complaint: had some SOB last night and desaturated took off O2 and Bipap but improved after he put them back on, also received IV lasix and IV steroids CXR c.w possible RLL INF started on IV zithromax this am feels OK awake alert NAD n respiratory distress - Current Medication List Current Medications: Active Medications Albuterol Sulfate (Ventolin 0.083% Nebulizer Soln -) 1 amp NEB Q6H PRN PRN Reason: SHORT OF BREATH/WHEEZING Last Admin: 10/11/18 19:45 Dose: 1 amp Aspirin (Ecotrin -) 81 mg PO DAILY [facility] Last Admin: 10/11/18 11:25 Dose: 81 mg Budesonide/Formoterol Fumarate (Symbicort 160/4.5mcg -) 2 puff IH BID [facility] Last Admin: 10/11/18 21:28 Dose: 2 puff Emollient Ointment (Aquaphor -) 1 applic TP BID [facility] Last Admin: 10/11/18 21:30 Dose: Not Given Heparin Sodium (Porcine) (Heparin -) 5,000 unit SQ BID [facility] Last Admin: 10/11/18 22:36 Dose: 5,000 unit Insulin Aspart (Novolog Vial Sliding Scale -) 1 vial SQ [facility]; Protocol Last Admin: 10/12/18 06:09 Dose: 2 units Lidocaine (Lidoderm Patch -) 1 patch TP DAILY [facility] Last Admin: 10/11/18 11:28 Dose: 1 patch Methylprednisolone Sodium Succinate (Solu-Medrol -) 40 mg IVPUSH BID [facility] Last Admin: 10/11/18 22:08 Dose: 40 mg Miscellaneous (Lidoderm Patch Removal) 1 each MC DAILY@2200 [facility] Last Admin: 10/11/18 21:29 Dose: 1 each Nystatin (Mycostatin Cream -) 1 applic TP BID [facility] Last Admin: 10/11/18 21:29 Dose: Not Given Nystatin/Triamcinolone Acetonide (Mycolog Ii Ointment -) 1 applic TP BID [facility] Last Admin: 10/11/18 21:29 Dose: Not Given Oxycodone HCl (Roxicodone -) 5 mg PO Q6H PRN PRN Reason: PAIN LEVEL 7 - 10 Last Admin: 10/10/18 11:17 Dose: 5 mg Pantoprazole Sodium (Protonix -) 20 mg PO DAILY [facility] Last Admin: 10/11/18 11:25 Dose: 20 mg Polyethylene Glycol (Miralax (For Daily Use) -) 17 gm PO DAILY PRN PRN Reason: CONSTIPATION Tiotropium [place] (Spiriva Respimat) 2 puff IH DAILY [facility] Last Admin: 10/11/18 10:50 Dose: 2 puff - Objective Vital Signs: Vital Signs Temperature 97.5 F L 10/12/18 05:41 Pulse Rate 50 L 10/12/18 05:41 Respiratory Rate 22 H 10/12/18 05:41 Blood Pressure 140/67 10/12/18 05:41 O2 Sat by Pulse Oximetry (%) 92 L 10/11/18 21:55 Constitutional: Yes: No Distress, Calm Eyes: Yes: Conjunctiva Clear HENT: Yes: Atraumatic Neck: Yes: Supple Cardiovascular: Yes: Regular Rate and Rhythm Respiratory: Yes: Diminished Gastrointestinal: Yes: Soft. No: Distention Genitourinary: No: CVA Tenderness - Left, CVA Tenderness - Right Musculoskeletal: No: Joint Stiffness, Joint Swelling Extremities: No: Cold, Cool Integumentary: Yes: Rash, Venous Stasis Changes Neurological: Yes: WNL, Alert, Oriented ...Motor Strength: WNL Psychiatric: Yes: WNL, Alert, Oriented. No: Agitated, Suicidal Ideation Labs: INR, PTT INR 1.43 (0.83-1.09) H 10/10/18 06:00 - ....Imaging Other: Report Reviewed Assessment/Plan ASHD PVD DM OA DJD CRF legs cellulitis and chronic venous insufficiency admitted with ARF/CRF dehydration, high LFTs, one episode of BRBPR and anemia, + troponin, possible RLL infiltrate/PNA COPD/CHF exac, off IVF, received 1x IV lasix; iv steroids, nebs O2, d/w pt importance to be c/ w Bipap, nebs, O2 seen by GI, renal and cardiology continue meds; f/u labs falls PFX, DVT, decubs PFX legs wounds care f/u labs, cx d/w pt and staff
[2018-10-12 08:46] LABS: ALBUMIN 2.4 g/dl (3.4-5.0); ALK PHOS 97 U/L (45-117); ANION GAP 6 MMOL/L (8-16); BILIRUBIN,TOTAL 0.5 mg/dL (0.2-1); BLOOD UREA NITROGEN 30 mg/dL (7-18); CALCIUM 8.2 mg/dL (8.5-10.1); CHLORIDE 100 mmol/L (98-107); CO2 36 mmol/L (21-32); CREATININE 1.3 mg/dL (0.55-1.3); GLUCOSE,RANDOM 158 mg/dL (74-106); LDH 231 U/L (87-246); POTASSIUM 4.9 mmol/L (3.5-5.1); SGOT/AST 128 U/L (15-37); SGPT/ALT 270 U/L (13-61); SODIUM 141 mmol/L (136-145); TOT PROT 6.1 g/dl (6.4-8.2)
[2018-10-12 08:57] LABS: BASO % 0.2 % (0-2.0); HEMATOCRIT 26.4 % (35.4-49); HEMOGLOBIN 8.1 GM/dL (11.7-16.9); MCH 24.2 pg (25.7-33.7); MCHC 30.6 g/dl (32.0-35.9); MEAN PLT VOLUME 8.4 fl (7.5-11.1); MONO % 1.2 % (3.8-10.2); NEUT % 94.6 % (42.8-82.8); PLATELET COUNT 217 K/MM3 (134-434); RBC 3.34 M/mm3 (4.00-5.60); RDW 19.1 % (11.9-15.9); WHITE BLOOD COUNT 6.1 K/mm3 (4.0-10.0)
[2018-10-12] MEDS ORDERED: FUROSEMIDE 40 MG/4 ML INJECTABLE VIAL IVPUSH ONE (10:00)
[2018-10-12] MEDS ORDERED: PT OWN MED DRAWER 7, Y5N ONE ×2 (10:14→19:34)
[2018-10-12] MEDS: AZITHROMYCIN IVPB 500 MG/250 ML BAG IVPB SCH (10:18)
[2018-10-12] MEDS: HEPARIN NA (PORCINE) 5,000 UNITS/ML 1ML VIAL SQ SCH ×2 (10:19→20:59)
[2018-10-12] MEDS: TIOTROPIUM BROMIDE 2.5 MCG (SPIRIVA) RESPIMAT INHALER IH SCH (10:19)
[2018-10-12] MEDS: BUDESONIDE/FORMETEROL FUMARATE 160/4.5 mcg INHALER IH SCH ×2 (10:19→20:59)
[2018-10-12] MEDS: MINERAL OIL/PET HY-PHL TOPICAL OINTMENT 454 GM JAR TP SCH ×2 (10:20→20:59)
[2018-10-12] MEDS: ASPIRIN COATED 81 MG TABLET.EC PO SCH (10:20)
[2018-10-12] MEDS: PANTOPRAZOLE 20 MG TABLET (FP) PO SCH (10:20)
[2018-10-12] MEDS: LIDOCAINE 5% TOPICAL PATCH TP SCH (10:20)
[2018-10-12] MEDS: methylPREDNISolone NA SUCC 40 MG/1 ML VIAL IVPUSH SCH ×2 (10:20→20:59)
[2018-10-12] MEDS: NYSTATIN 100,000 UNIT/GM TOPICAL CREAM 15 GM TUBE TP SCH ×2 (10:21→21:00)
--- NOTE | 2018-10-12 10:41 | PN ---
Progress Note (short form) - Note Progress Note: s: no cp sob palps dizzy o: Vital Signs Period Temp Pulse Resp BP Sys/Mullen Pulse Ox Last 24 Hr 97.5 F-98.8 F 50-76 16-30 130-158/55-92 51-99 Constitutional: Yes: No Distress, Calm Eyes: Yes: Conjunctiva Clear, Neck: Yes: Supple, Trachea Midline Respiratory: Yes: cta bl nl eff Gastrointestinal: Yes: Normal Bowel Sounds, Soft Cardiovascular: Yes: Regular Rate and Rhythm JVD: No Carotid Bruit: No Heart Sounds: Yes: S1, S2 Extremities: Yes: Erythema, Other (erythema bilateral feet and ankles with weeping from wounds) Edema: trace/1+ le edema bl Peripheral Pulses: 1+ Left Doralis Pedis, 1+ Right Dorsalis Pedis Integumentary: no jaundice diaphoresis aaox3 Current Medications Generic Name Dose Route Start Last Admin Trade Name Freq PRN Reason Stop Dose Admin Albuterol Sulfate 1 amp 10/09/18 20:38 10/11/18 19:45 Ventolin 0.083% Nebulizer Soln - NEB 1 amp Q6H PRN Administration SHORT OF BREATH/WHEEZING Aspirin 81 mg 10/10/18 10:00 10/12/18 10:20 Ecotrin - PO 81 mg DAILY RAJESH Administration Budesonide/Formoterol Fumarate 2 puff 10/09/18 22:00 10/12/18 10:19 Symbicort 160/4.5mcg - IH 2 puff BID RAJESH Administration Emollient Ointment 1 applic 10/09/18 22:00 10/12/18 10:20 Aquaphor - TP 1 applic BID RAJESH Administration Heparin Sodium (Porcine) 5,000 unit 10/11/18 22:30 10/12/18 10:19 Heparin - SQ 5,000 unit BID RAJESH Administration Azithromycin 500 mg in 250 mls @ 250 mls/hr 10/12/18 10:00 10/12/18 10:18 Zithromax 500mg Ivpb (Pre-Docked) IVPB 250 mls/hr DAILY RAJESH Administration Insulin Aspart 1 vial 10/09/18 22:00 10/12/18 06:09 Novolog Vial Sliding Scale - SQ 2 units ACHS RAJESH Administration Protocol Lidocaine 1 patch 10/10/18 10:00 10/12/18 10:20 Lidoderm Patch - TP 1 patch DAILY RAJESH Administration Methylprednisolone Sodium Succinate 40 mg 10/11/18 22:00 10/12/18 10:20 Solu-Medrol - IVPUSH 40 mg BID RAJESH Administration Miscellaneous 1 each 10/09/18 22:00 10/11/18 21:29 Lidoderm Patch Removal MC 1 each DAILY@2200 RAJESH Administration Nystatin 1 applic 10/09/18 22:00 10/12/18 10:21 Mycostatin Cream - TP 1 applic BID RAJESH Administration Nystatin/Triamcinolone Acetonide 1 applic 10/09/18 22:00 10/11/18 21:29 Mycolog Ii Ointment - TP Not Given BID RAJESH Oxycodone HCl 5 mg 10/10/18 08:52 10/10/18 11:17 Roxicodone - PO 5 mg Q6H PRN Administration PAIN LEVEL 7 - 10 Pantoprazole Sodium 20 mg 10/10/18 10:00 10/12/18 10:20 Protonix - PO 20 mg DAILY RAJESH Administration Polyethylene Glycol 17 gm 10/09/18 21:29 Miralax (For Daily Use) - PO DAILY PRN CONSTIPATION Tiotropium [place] 2 puff 10/10/18 10:00 10/12/18 10:19 Spiriva Respimat IH 2 puff DAILY RAJESH Administration CBC, BMP 10/12/18 06:15 10/12/18 06:15 echo 12/2016: nl lv/rv, mild lae, mild mr, mild-mod tr, possible mild as, mild phtn exercise mibi 01/02: no ischemia at 80% mphr EKG: sinus, LBBB, mobitz 1 (similar to prior EKGs) tele: sinus, LBBB, mobitz I with 2:1 block at times a/p: 68M h/o CVA, HTN, HLD, COPD (on 3L O2), CKD, DM, TIA, chronic diastolic hf /venous insufficiency, 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 bradycardia, Abnormal EKG, mobitz 1, LBBB: - chronic findings, has had prior event monitors in clinic showing mobitz 1 without significant pauses - bradycardia likely in setting of hyperkalemia, appears to have improved with correction of K - avoid AV arsh blocking agents - monitoring on tele elevated trop - borderline trop level with flat trend in setting of THERESA - no chest pain - not c/w acs COPD - seems stable presently chronic venous insuff/LE edema, recurrent cellulitis: - manage per primary PAD: -prior h/o left fem-pop bypass, cont asa, statin. no clear indication for plavix, stopped now, especially in setting of anemia. chronic diastolic CHF -echoes have been unremarkable or very TDS in past, most recent 12/2016 was unremarkable - BNP elevated, however in setting of THERESA, appears euvolemic, no dyspnea -holding torsemide in setting of THERESA, defer diuretics hyperkalemia - manage per primary THERESA - renal consulted elevated LFTs - GI consulted htn: -stable, controlled hld: -cont statin h/o TIA (2003): -on ASA, statin for sec prevention, cont same anemia: -no clear indication for plavix, so stopped now -he is on asa for PAD, can be held temporarily if needed -no cardiac contraindications to egd/foc if needed
[2018-10-12] MEDS: oxyCODONE HCL 5 MG TABLET PO PRN (10:42)
--- NOTE | 2018-10-12 11:26 | ECHO ---
Name: NATALIIA MURILLO Exam:Adult Echocardiogram Study Date: 10/12/2018 09:53 AM Age: 68 yrs Reason For Study: CHF Height: 66 in Weight: 258 lb BSA: 2.2 m2 MMode/2D Measurements & Calculations IVSd: 0.98 cm Ao root diam: 3.1 cm LVIDd: 5.0 cm LA dimension: 3.9 cm LVIDs: 3.6 cm LVPWd: 0.89 cm EDV(Teich): 120.9 ml LVOT diam: 2.3 cm ESV(Teich): 55.1 ml TAPSE: 2.5 cm Doppler Measurements & Calculations MV E max juan: 114.1 cm/sec Ao V2 max: 234.1 cm/sec MV A max juan: 35.2 cm/sec Ao max P.9 mmHg MV E/A: 3.2 Ao V2 mean: 145.8 cm/sec MV dec time: 0.15 sec Ao mean P.4 mmHg Ao V2 VTI: 59.5 cm ELISABET(I,D): 1.5 cm2 ELISABET(V,D): 1.5 cm2 LV V1 max P.9 mmHg MR max juan: 336.3 cm/sec LV V1 mean P.4 mmHg MR max P.2 mmHg LV V1 max: 84.9 cm/sec LV V1 mean: 55.9 cm/sec LV V1 VTI: 21.9 cm SV(LVOT): 87.5 ml TR max juan: 314.1 cm/sec TR max P.2 mmHg Med Peak E' Juan: 8.4 cm/sec Med E/e': 13.6 Lat Peak E' Juan: 16.1 cm/sec Lat E/e': 7.1 Procedure The study was technically difficult with many images being suboptimal in quality. Left Ventricle Although wall motion is not well seen, left ventricular systolic function appears grossly normal. Reg ional wall motion abnormalities cannot be excluded due to limited visualization. Right Ventricle The right ventricle is not well visualized. Atria The left atrium is mildly dilated. Mitral Valve There is mild mitral annular calcification. There is no mitral valve stenosis. There is mild mitral regurgitation. Tricuspid Valve The tricuspid valve is normal in structure and function. There is mild to moderate tricuspid regurgit ation. Right ventricular systolic pressure is elevated at 50-60mmHg. Aortic Valve There is moderate aortic sclerosis.;. The aortic valve leaflets are not well seen. Mild valvular aort ic stenosis. Due to the technically difficult nature of the exam, the severity of aortic valve stenosis may be underestimated. No aortic regurgitation is present. Pulmonic Valve The pulmonic valve is not well visualized. There is no pulmonic valvular stenosis. Great Vessels The aortic root is normal size. Pericardium/Pleura There is no pericardial effusion. Interpretation Summary The study was technically difficult with many images being suboptimal in quality. Regional wall motion abnormalities cannot be excluded due to limited visualization. Although wall motion is not well seen, left ventricular systolic function appears grossly normal. The left atrium is mildly dilated. There is mild mitral annular calcification. There is mild mitral regurgitation. There is mild to moderate tricuspid regurgitation. Right ventricular systolic pressure is elevated at 50-60mmHg. There is moderate aortic sclerosis.; The aortic valve leaflets are not well seen. Mild valvular aortic stenosis. Due to the technically difficult nature of the exam, the severity of aortic valve stenosis may be underestimated. There is no pericardial effusion. MD Ryan Martínez 10/12/2018 11:25 AM
[2018-10-12] MEDS: NYSTATIN/TRIAMCINOLONE TOPICAL OINTMENT 15 GM TUBE TP SCH ×2 (11:57→21:00)
--- NOTE | 2018-10-12 12:19 | PN ---
Progress Note (short form) - Note Progress Note: Renal follow up for THERESA on CKD Pt seen and examined at the bedside noted to have labored breathing and hypoxia overnight with CXR showing congestion was given IV lasix overnight no acute complaints this am making urine Vital Signs Temperature 97.5 F L 10/12/18 05:41 Pulse Rate 50 L 10/12/18 05:41 Respiratory Rate 20 10/12/18 09:00 Blood Pressure 140/67 10/12/18 05:41 O2 Sat by Pulse Oximetry (%) 93 L 10/12/18 09:00 Intake & Output 10/09/18 10/10/18 10/11/18 10/12/18 23:59 23:59 23:59 23:59 Intake Total 1210 750 Output Total 200 400 500 Balance 1010 350 -500 Weight 108.862 kg 117.39 kg 117.027 kg NAD + edema in LE CBC, BMP 10/12/18 06:15 10/12/18 06:15 Current Medications Albuterol Sulfate (Ventolin 0.083% Nebulizer Soln -) 1 amp NEB Q6H PRN PRN Reason: SHORT OF BREATH/WHEEZING Last Admin: 10/12/18 07:25 Dose: 1 amp Aspirin (Ecotrin -) 81 mg PO DAILY [facility] Last Admin: 10/12/18 10:20 Dose: 81 mg Budesonide/Formoterol Fumarate (Symbicort 160/4.5mcg -) 2 puff IH BID [facility] Last Admin: 10/12/18 10:19 Dose: 2 puff Emollient Ointment (Aquaphor -) 1 applic TP BID [facility] Last Admin: 10/12/18 10:20 Dose: 1 applic Heparin Sodium (Porcine) (Heparin -) 5,000 unit SQ BID RAJESH Last Admin: 10/12/18 10:19 Dose: 5,000 unit Azithromycin (Zithromax 500mg Ivpb (Pre-Docked)) 500 mg in 250 mls @ 250 mls/ hr IVPB DAILY [facility] Last Admin: 10/12/18 10:18 Dose: 250 mls/hr Insulin Aspart (Novolog Vial Sliding Scale -) 1 vial SQ ACHS [facility]; Protocol Last Admin: 10/12/18 11:57 Dose: 8 units Lidocaine (Lidoderm Patch -) 1 patch TP DAILY [facility] Last Admin: 12/21/18 10:20 Dose: 1 patch Methylprednisolone Sodium Succinate (Solu-Medrol -) 40 mg IVPUSH BID [facility] Last Admin: 10/12/18 10:20 Dose: 40 mg Miscellaneous (Lidoderm Patch Removal) 1 each MC DAILY@2200 [facility] Last Admin: 10/11/18 21:29 Dose: 1 each Nystatin (Mycostatin Cream -) 1 applic TP BID [facility] Last Admin: 10/12/18 10:21 Dose: 1 applic Nystatin/Triamcinolone Acetonide (Mycolog Ii Ointment -) 1 applic TP BID [facility] Last Admin: 10/12/18 11:57 Dose: 1 applic Oxycodone HCl (Roxicodone -) 5 mg PO Q6H PRN PRN Reason: PAIN LEVEL 7 - 10 Last Admin: 10/12/18 10:42 Dose: 5 mg Pantoprazole Sodium (Protonix -) 20 mg PO DAILY [facility] Last Admin: 10/12/18 10:20 Dose: 20 mg Polyethylene Glycol (Miralax (For Daily Use) -) 17 gm PO DAILY PRN PRN Reason: CONSTIPATION Tiotropium [place] (Spiriva Respimat) 2 puff IH DAILY [facility] Last Admin: 10/12/18 10:19 Dose: 2 puff 68 year old gentleman with hx of CKD, MARTIN, COPD, CVA, DM who was sent to the ED from [place] for hyperkalemia and found to have THERESA And acute liver injury. #THERESA on CKD likely due to intravascular volume depletion #Abnormal LFT's/Acute liver injury #Chronic LE edema #Anemia Renal function is now improved and back to baseline. Give SOB and evidence of chest congestion will give IV Lasix this am (did get dose last night as well). Pt does appear clinically improved and can resume oral diuretics starting tomorrow. Would trend renal function and electrolytes during this time. Thank you Kartik Escobedo DO
--- NOTE | 2018-10-12 12:27 | PN ---
Progress Note, Physician History of Present Illness: pulmonary hypoxic earlier placed back on bipap. pt currently comfortable in nad - Current Medication List Current Medications: Active Medications Albuterol Sulfate (Ventolin 0.083% Nebulizer Soln -) 1 amp NEB Q6H PRN PRN Reason: SHORT OF BREATH/WHEEZING Last Admin: 10/12/18 07:25 Dose: 1 amp Aspirin (Ecotrin -) 81 mg PO DAILY [facility] Last Admin: 10/12/18 10:20 Dose: 81 mg Budesonide/Formoterol Fumarate (Symbicort 160/4.5mcg -) 2 puff IH BID [facility] Last Admin: 10/12/18 10:19 Dose: 2 puff Emollient Ointment (Aquaphor -) 1 applic TP BID [facility] Last Admin: 10/12/18 10:20 Dose: 1 applic Heparin Sodium (Porcine) (Heparin -) 5,000 unit SQ BID [facility] Last Admin: 10/12/18 10:19 Dose: 5,000 unit Azithromycin (Zithromax 500mg Ivpb (Pre-Docked)) 500 mg in 250 mls @ 250 mls/ hr IVPB DAILY [facility] Last Admin: 10/12/18 10:18 Dose: 250 mls/hr Insulin Aspart (Novolog Vial Sliding Scale -) 1 vial SQ ACHS [facility]; Protocol Last Admin: 10/12/18 11:57 Dose: 8 units Lidocaine (Lidoderm Patch -) 1 patch TP DAILY [facility] Last Admin: 10/12/18 10:20 Dose: 1 patch Methylprednisolone Sodium Succinate (Solu-Medrol -) 40 mg IVPUSH BID [facility] Last Admin: 10/12/18 10:20 Dose: 40 mg Miscellaneous (Lidoderm Patch Removal) 1 each MC DAILY@2200 [facility] Last Admin: 10/11/18 21:29 Dose: 1 each Nystatin (Mycostatin Cream -) 1 applic TP BID [facility] Last Admin: 10/12/18 10:21 Dose: 1 applic Nystatin/Triamcinolone Acetonide (Mycolog Ii Ointment -) 1 applic TP BID [facility] Last Admin: 10/12/18 11:57 Dose: 1 applic Oxycodone HCl (Roxicodone -) 5 mg PO Q6H PRN PRN Reason: PAIN LEVEL 7 - 10 Last Admin: 10/12/18 10:42 Dose: 5 mg Pantoprazole Sodium (Protonix -) 20 mg PO DAILY [facility] Last Admin: 10/12/18 10:20 Dose: 20 mg Polyethylene Glycol (Miralax (For Daily Use) -) 17 gm PO DAILY PRN PRN Reason: CONSTIPATION Tiotropium [place] (Spiriva Respimat) 2 puff IH DAILY [facility] Last Admin: 10/12/18 10:19 Dose: 2 puff Torsemide (Demadex -) 20 mg PO DAILY [facility] - Objective Vital Signs: Vital Signs Temperature 97.5 F L 10/12/18 05:41 Pulse Rate 50 L 10/12/18 05:41 Respiratory Rate 20 10/12/18 09:00 Blood Pressure 140/67 10/12/18 05:41 O2 Sat by Pulse Oximetry (%) 97 10/12/18 12:13 Constitutional: Yes: Well Nourished, Calm, Obese Eyes: Yes: WNL HENT: Yes: WNL Neck: Yes: WNL Cardiovascular: Yes: Regular Rate and Rhythm, S1, S2 Respiratory: Yes: Wheezes (few scattered inocencia wheezes) Gastrointestinal: Yes: Normal Bowel Sounds, Soft Extremities: Yes: WNL, Erythema Edema: Yes Labs: CBC, BMP 10/12/18 06:15 10/12/18 06:15 INR, PTT INR 1.43 (0.83-1.09) H 10/10/18 06:00 Problem List - Problems (1) Bradycardia Code(s): R00.1 - BRADYCARDIA, UNSPECIFIED (2) Elevated LFTs Code(s): R94.5 - ABNORMAL RESULTS OF LIVER FUNCTION STUDIES (3) MARTIN on CPAP Code(s): G47.33 - OBSTRUCTIVE SLEEP APNEA (ADULT) (PEDIATRIC); Z99.89 - DEPENDENCE ON OTHER ENABLING MACHINES AND DEVICES (4) Acute on chronic respiratory failure with hypoxia and hypercapnia Code(s): J96.21 - ACUTE AND CHRONIC RESPIRATORY FAILURE WITH HYPOXIA; J96.22 - ACUTE AND CHRONIC RESPIRATORY FAILURE WITH HYPERCAPNIA (5) CHF (congestive heart failure) Code(s): I50.9 - HEART FAILURE, UNSPECIFIED (6) CVA (cerebral vascular accident) Code(s): I63.9 - CEREBRAL INFARCTION, UNSPECIFIED (7) Diabetes mellitus Code(s): E11.9 - TYPE 2 DIABETES MELLITUS WITHOUT COMPLICATIONS (8) Hyperkalemia Code(s): E87.5 - HYPERKALEMIA (9) Sleep apnea Code(s): G47.30 - SLEEP APNEA, UNSPECIFIED (10) CAD (coronary artery disease) Code(s): I25.10 - ATHSCL HEART DISEASE OF [place] CORONARY ARTERY W/O ANG PCTRS (11) Leg edema Code(s): R60.0 - LOCALIZED EDEMA (12) Mobitz (type) I (Wenckebach's) atrioventricular block Code(s): I44.1 - ATRIOVENTRICULAR BLOCK, SECOND DEGREE (13) Whzpt-ye-rhivwrf kidney injury Code(s): N17.9 - ACUTE KIDNEY FAILURE, UNSPECIFIED; N18.9 - CHRONIC KIDNEY DISEASE, UNSPECIFIED
--- NOTE | 2018-10-12 12:30 | PN ---
Progress Note, Physician History of Present Illness: pulmonary hypoxic earlier placed back on bipap. pt currently comfortable in nad - Current Medication List Current Medications: Active Medications Albuterol Sulfate (Ventolin 0.083% Nebulizer Soln -) 1 amp NEB Q6H PRN PRN Reason: SHORT OF BREATH/WHEEZING Last Admin: 10/12/18 07:25 Dose: 1 amp Aspirin (Ecotrin -) 81 mg PO DAILY [facility] Last Admin: 10/12/18 10:20 Dose: 81 mg Budesonide/Formoterol Fumarate (Symbicort 160/4.5mcg -) 2 puff IH BID [facility] Last Admin: 10/12/18 10:19 Dose: 2 puff Emollient Ointment (Aquaphor -) 1 applic TP BID [facility] Last Admin: 10/12/18 10:20 Dose: 1 applic Heparin Sodium (Porcine) (Heparin -) 5,000 unit SQ BID [facility] Last Admin: 10/12/18 10:19 Dose: 5,000 unit Azithromycin (Zithromax 500mg Ivpb (Pre-Docked)) 500 mg in 250 mls @ 250 mls/ hr IVPB DAILY [facility] Last Admin: 10/12/18 10:18 Dose: 250 mls/hr Insulin Aspart (Novolog Vial Sliding Scale -) 1 vial SQ ACHS [facility]; Protocol Last Admin: 10/12/18 11:57 Dose: 8 units Lidocaine (Lidoderm Patch -) 1 patch TP DAILY [facility] Last Admin: 10/12/18 10:20 Dose: 1 patch Methylprednisolone Sodium Succinate (Solu-Medrol -) 40 mg IVPUSH BID [facility] Last Admin: 10/12/18 10:20 Dose: 40 mg Miscellaneous (Lidoderm Patch Removal) 1 each MC DAILY@2200 [facility] Last Admin: 10/11/18 21:29 Dose: 1 each Nystatin (Mycostatin Cream -) 1 applic TP BID [facility] Last Admin: 10/12/18 10:21 Dose: 1 applic Nystatin/Triamcinolone Acetonide (Mycolog Ii Ointment -) 1 applic TP BID [facility] Last Admin: 10/12/18 11:57 Dose: 1 applic Oxycodone HCl (Roxicodone -) 5 mg PO Q6H PRN PRN Reason: PAIN LEVEL 7 - 10 Last Admin: 10/12/18 10:42 Dose: 5 mg Pantoprazole Sodium (Protonix -) 20 mg PO DAILY [facility] Last Admin: 10/12/18 10:20 Dose: 20 mg Polyethylene Glycol (Miralax (For Daily Use) -) 17 gm PO DAILY PRN PRN Reason: CONSTIPATION Tiotropium [place] (Spiriva Respimat) 2 puff IH DAILY [facility] Last Admin: 10/12/18 10:19 Dose: 2 puff Torsemide (Demadex -) 20 mg PO DAILY [facility] - Objective Vital Signs: Vital Signs Temperature 97.5 F L 10/12/18 05:41 Pulse Rate 50 L 10/12/18 05:41 Respiratory Rate 20 10/12/18 09:00 Blood Pressure 140/67 10/12/18 05:41 O2 Sat by Pulse Oximetry (%) 97 10/12/18 12:13 Constitutional: Yes: Well Nourished, Calm, Obese Eyes: Yes: WNL HENT: Yes: WNL Neck: Yes: WNL Cardiovascular: Yes: Regular Rate and Rhythm, S1, S2 Respiratory: Yes: Wheezes (few scattered inocencia wheezes) Gastrointestinal: Yes: Normal Bowel Sounds, Soft Extremities: Yes: WNL, Erythema Edema: Yes Labs: CBC, BMP 10/12/18 06:15 10/12/18 06:15 INR, PTT INR 1.43 (0.83-1.09) H 10/10/18 06:00 Problem List - Problems (1) Bradycardia Code(s): R00.1 - BRADYCARDIA, UNSPECIFIED (2) Elevated LFTs Code(s): R94.5 - ABNORMAL RESULTS OF LIVER FUNCTION STUDIES (3) MARTIN on CPAP Code(s): G47.33 - OBSTRUCTIVE SLEEP APNEA (ADULT) (PEDIATRIC); Z99.89 - DEPENDENCE ON OTHER ENABLING MACHINES AND DEVICES (4) Acute on chronic respiratory failure with hypoxia and hypercapnia Code(s): J96.21 - ACUTE AND CHRONIC RESPIRATORY FAILURE WITH HYPOXIA; J96.22 - ACUTE AND CHRONIC RESPIRATORY FAILURE WITH HYPERCAPNIA (5) CHF (congestive heart failure) Code(s): I50.9 - HEART FAILURE, UNSPECIFIED (6) CVA (cerebral vascular accident) Code(s): I63.9 - CEREBRAL INFARCTION, UNSPECIFIED (7) Diabetes mellitus Code(s): E11.9 - TYPE 2 DIABETES MELLITUS WITHOUT COMPLICATIONS (8) Hyperkalemia Code(s): E87.5 - HYPERKALEMIA (9) Sleep apnea Code(s): G47.30 - SLEEP APNEA, UNSPECIFIED (10) CAD (coronary artery disease) Code(s): I25.10 - ATHSCL HEART DISEASE OF [place] CORONARY ARTERY W/O ANG PCTRS (11) Leg edema Code(s): R60.0 - LOCALIZED EDEMA (12) Mobitz (type) I (Wenckebach's) atrioventricular block Code(s): I44.1 - ATRIOVENTRICULAR BLOCK, SECOND DEGREE (13) [id number]-lg-dxobebi kidney injury Code(s): N17.9 - ACUTE KIDNEY FAILURE, UNSPECIFIED; N18.9 - CHRONIC KIDNEY DISEASE, UNSPECIFIED Assessment/Plan IMP ACUTE ON CHRONIC HYPOXEMIC/HYPERCAPNEIC RESPIRATORY FAILURE COPD END STAGE O2 DEPENDENT ACUTE ON CHRONIC KIDNEY INJURY MARTIN BRADYCARDIA HTN H/O CVA TOBACCO ABUSE + TROPONIN ELEVATED LFTS PLAN INHALED BRONCHODILATORS O2 BIPAP AT NIGHT AND PRN IVF MONITOR LYTES,RENAL FUNCTION,LFTS TREND TROPONINS F/U CHEST X-RAYS DR GREEN Problem List - Problems (1) Bradycardia Code(s): R00.1 - BRADYCARDIA, UNSPECIFIED (2) Elevated LFTs Code(s): R94.5 - ABNORMAL RESULTS OF LIVER FUNCTION STUDIES (3) MARTIN on CPAP Code(s): G47.33 - OBSTRUCTIVE SLEEP APNEA (ADULT) (PEDIATRIC); Z99.89 - DEPENDENCE ON OTHER ENABLING MACHINES AND DEVICES (4) Acute on chronic respiratory failure with hypoxia and hypercapnia Code(s): J96.21 - ACUTE AND CHRONIC RESPIRATORY FAILURE WITH HYPOXIA; J96.22 - ACUTE AND CHRONIC RESPIRATORY FAILURE WITH HYPERCAPNIA (5) CHF (congestive heart failure) Code(s): I50.9 - HEART FAILURE, UNSPECIFIED (6) CVA (cerebral vascular accident) Code(s): I63.9 - CEREBRAL INFARCTION, UNSPECIFIED (7) Diabetes mellitus Code(s): E11.9 - TYPE 2 DIABETES MELLITUS WITHOUT COMPLICATIONS (8) Hyperkalemia Code(s): E87.5 - HYPERKALEMIA (9) Sleep apnea Code(s): G47.30 - SLEEP APNEA, UNSPECIFIED (10) CAD (coronary artery disease) Code(s): I25.10 - ATHSCL HEART DISEASE OF [place] CORONARY ARTERY W/O ANG PCTRS (11) Leg edema Code(s): R60.0 - LOCALIZED EDEMA (12) Mobitz (type) I (Wenckebach's) atrioventricular block Code(s): I44.1 - ATRIOVENTRICULAR BLOCK, SECOND DEGREE (13) Neksl-xd-ptrfnml kidney injury Code(s): N17.9 - ACUTE KIDNEY FAILURE, UNSPECIFIED; N18.9 - CHRONIC KIDNEY DISEASE, UNSPECIFIED
[2018-10-12 12:45] LABS: ANISOCYTOSIS 1+; MACROCYTOSIS 0; OVALOCYTE 1+; PLATELET ESTIMATE NORMAL
[2018-10-12 16:28] LABS: TOTAL PROTEIN, URINE 20.4 mg/dL (Not Estab.)
[2018-10-12] MEDS: LIDOCAINE PATCH REMOVAL MC SCH (21:00)
[2018-10-13 04:17] LABS: SERUM IRON SATURATION 7 % (15-55); TOTAL IRON BINDING CAPACITY 263 ug/dL (250-450); UIBC 245 ug/dL (111-343)
[2018-10-13] MEDS: INSULIN SLIDING SCALE (NOVOLOG) 1 VIAL SQ SCH ×4 (06:21→21:19)
[2018-10-13] MEDS: ALBUTEROL SO4 0.083% IH SOL 2.5 MG/3 ML VIAL.NEB. NEB PRN ×2 (06:55→20:26)
[2018-10-13 08:19] LABS: ANION GAP 5 MMOL/L (8-16); BLOOD UREA NITROGEN 37 mg/dL (7-18); CALCIUM 8.2 mg/dL (8.5-10.1); CHLORIDE 97 mmol/L (98-107); CO2 38 mmol/L (21-32); CREATININE 1.5 mg/dL (0.55-1.3); GLUCOSE,RANDOM 222 mg/dL (74-106); MAGNESIUM 2.6 mg/dL (1.8-2.4); POTASSIUM 5.1 mmol/L (3.5-5.1); SODIUM 140 mmol/L (136-145)
--- NOTE | 2018-10-13 08:31 | PN ---
Progress Note, Physician Chief Complaint: in bed awake NAD no new c/o Harriet at bedside, d.w pt and his current condition and treatment - Current Medication List Current Medications: Active Medications Albuterol Sulfate (Ventolin 0.083% Nebulizer Soln -) 1 amp NEB Q6H PRN PRN Reason: SHORT OF BREATH/WHEEZING Last Admin: 10/13/18 06:55 Dose: 1 amp Aspirin (Ecotrin -) 81 mg PO DAILY [facility] Last Admin: 10/12/18 10:20 Dose: 81 mg Budesonide/Formoterol Fumarate (Symbicort 160/4.5mcg -) 2 puff IH BID [facility] Last Admin: 10/12/18 20:59 Dose: 2 puff Emollient Ointment (Aquaphor -) 1 applic TP BID [facility] Last Admin: 10/12/18 20:59 Dose: 1 applic Heparin Sodium (Porcine) (Heparin -) 5,000 unit SQ BID [facility] Last Admin: 10/12/18 20:59 Dose: 5,000 unit Azithromycin (Zithromax 500mg Ivpb (Pre-Docked)) 500 mg in 250 mls @ 250 mls/ hr IVPB DAILY [facility] Last Admin: 10/12/18 10:18 Dose: 250 mls/hr Insulin Aspart (Novolog Vial Sliding Scale -) 1 vial SQ ACHS [facility]; Protocol Last Admin: 10/13/18 06:21 Dose: 4 units Lidocaine (Lidoderm Patch -) 1 patch TP DAILY [facility] Last Admin: 10/12/18 10:20 Dose: 1 patch Methylprednisolone Sodium Succinate (Solu-Medrol -) 40 mg IVPUSH BID [facility] Last Admin: 10/12/18 20:59 Dose: 40 mg Miscellaneous (Lidoderm Patch Removal) 1 each MC DAILY@2200 [facility] Last Admin: 10/12/18 21:00 Dose: 1 each Nystatin (Mycostatin Cream -) 1 applic TP BID [facility] Last Admin: 10/12/18 21:00 Dose: 1 applic Nystatin/Triamcinolone Acetonide (Mycolog Ii Ointment -) 1 applic TP BID [facility] Last Admin: 10/12/18 21:00 Dose: 1 applic Oxycodone HCl (Roxicodone -) 5 mg PO Q6H PRN PRN Reason: PAIN LEVEL 7 - 10 Last Admin: 10/12/18 10:42 Dose: 5 mg Pantoprazole Sodium (Protonix -) 20 mg PO DAILY [facility] Last Admin: 10/12/18 10:20 Dose: 20 mg Polyethylene Glycol (Miralax (For Daily Use) -) 17 gm PO DAILY PRN PRN Reason: CONSTIPATION Tiotropium [place] (Spiriva Respimat) 2 puff IH DAILY [facility] Last Admin: 10/12/18 10:19 Dose: 2 puff Torsemide (Demadex -) 20 mg PO DAILY [facility] - Objective Vital Signs: Vital Signs Temperature 97.6 F 10/13/18 06:00 Pulse Rate 74 10/13/18 06:00 Respiratory Rate 18 10/13/18 06:00 Blood Pressure 154/67 10/13/18 06:00 O2 Sat by Pulse Oximetry (%) 94 L 10/12/18 21:00 Constitutional: Yes: No Distress, Calm Eyes: Yes: Conjunctiva Clear HENT: Yes: Atraumatic Neck: Yes: Supple Cardiovascular: Yes: Regular Rate and Rhythm Respiratory: Yes: Diminished Gastrointestinal: Yes: Soft. No: Distention Genitourinary: No: CVA Tenderness - Left, CVA Tenderness - Right Musculoskeletal: No: Joint Stiffness, Joint Swelling Extremities: No: Cold, Cool, Cyanosis Edema: Yes (legs ) Integumentary: Yes: Rash (but less than before), Venous Stasis Changes Neurological: Yes: WNL, Alert, Oriented ...Motor Strength: WNL Psychiatric: Yes: WNL, Alert, Oriented. No: Agitated, Suicidal Ideation Labs: CBC, BMP 10/12/18 06:15 10/13/18 06:30 INR, PTT INR 1.43 (0.83-1.09) H 10/10/18 06:00 - ....Imaging Other: Report Reviewed Assessment/Plan ASHD PVD DM OA DJD CRF legs cellulitis and chronic venous insufficiency admitted with ARF/CRF dehydration, high LFTs, one episode of BRBPR and anemia, + troponin, possible RLL infiltrate/PNA COPD/CHF exac, off IVF, received 1x IV lasix; iv steroids, nebs O2, d/w pt importance to be c/ w Bipap, nebs, O2 seen by GI, renal and cardiology; will need anemia w/u EGD Colonoscopy and heme f/u continue meds; f/u labs falls PFX, DVT, decubs PFX legs wounds care f/u labs, cx d/w pt and staff
[2018-10-13] MEDS: methylPREDNISolone NA SUCC 40 MG/1 ML VIAL IVPUSH SCH ×2 (10:04→21:19)
[2018-10-13] MEDS: TORSEMIDE 20 MG TABLET (FP) PO SCH (10:05)
[2018-10-13] MEDS: PANTOPRAZOLE 20 MG TABLET (FP) PO SCH (10:05)
[2018-10-13] MEDS: ASPIRIN COATED 81 MG TABLET.EC PO SCH (10:05)
[2018-10-13] MEDS: LIDOCAINE 5% TOPICAL PATCH TP SCH (10:05)
[2018-10-13] MEDS: HEPARIN NA (PORCINE) 5,000 UNITS/ML 1ML VIAL SQ SCH ×2 (10:06→21:18)
[2018-10-13] MEDS: AZITHROMYCIN IVPB 500 MG/250 ML BAG IVPB SCH (10:06)
--- NOTE | 2018-10-13 10:12 | PN ---
Progress Note (short form) - Note Progress Note: - Note Progress Note: s: no cp sob palps dizzy o: Vital Signs Period Temp Pulse Resp BP Sys/Mullen Pulse Ox Last 24 Hr 97.4 F-98.3 F 47-75 18-22 130-154/52-77 94-98 Constitutional: Yes: No Distress, Calm Eyes: Yes: Conjunctiva Clear, Neck: Yes: Supple, Trachea Midline Respiratory: Yes: cta bl nl eff Gastrointestinal: Yes: Normal Bowel Sounds, Soft Cardiovascular: Yes: Regular Rate and Rhythm JVD: No Carotid Bruit: No Heart Sounds: Yes: S1, S2 Extremities: Yes: Erythema, Other (erythema bilateral feet and ankles with weeping from wounds) Edema: trace/1+ le edema bl Peripheral Pulses: 1+ Left Doralis Pedis, 1+ Right Dorsalis Pedis Integumentary: no jaundice diaphoresis aaox3 Current Medications Albuterol Sulfate (Ventolin 0.083% Nebulizer Soln -) 1 amp NEB Q6H PRN PRN Reason: SHORT OF BREATH/WHEEZING Last Admin: 10/13/18 06:55 Dose: 1 amp Aspirin (Ecotrin -) 81 mg PO DAILY [facility] Last Admin: 10/12/18 10:20 Dose: 81 mg Budesonide/Formoterol Fumarate (Symbicort 160/4.5mcg -) 2 puff IH BID [facility] Last Admin: 10/12/18 20:59 Dose: 2 puff Emollient Ointment (Aquaphor -) 1 applic TP BID [facility] Last Admin: 10/12/18 20:59 Dose: 1 applic Heparin Sodium (Porcine) (Heparin -) 5,000 unit SQ BID [facility] Last Admin: 10/12/18 20:59 Dose: 5,000 unit Azithromycin (Zithromax 500mg Ivpb (Pre-Docked)) 500 mg in 250 mls @ 250 mls/ hr IVPB DAILY [facility] Last Admin: 10/12/18 10:18 Dose: 250 mls/hr Insulin Aspart (Novolog Vial Sliding Scale -) 1 vial SQ ACHS [facility]; Protocol Last Admin: 10/13/18 06:21 Dose: 4 units Lidocaine (Lidoderm Patch -) 1 patch TP DAILY [facility] Last Admin: 10/12/18 10:20 Dose: 1 patch Methylprednisolone Sodium Succinate (Solu-Medrol -) 40 mg IVPUSH BID [facility] Last Admin: 10/12/18 20:59 Dose: 40 mg Miscellaneous (Lidoderm Patch Removal) 1 each MC DAILY@2200 [facility] Last Admin: 10/12/18 21:00 Dose: 1 each Nystatin (Mycostatin Cream -) 1 applic TP BID [facility] Last Admin: 10/12/18 21:00 Dose: 1 applic Nystatin/Triamcinolone Acetonide (Mycolog Ii Ointment -) 1 applic TP BID [facility] Last Admin: 10/12/18 21:00 Dose: 1 applic Oxycodone HCl (Roxicodone -) 5 mg PO Q6H PRN PRN Reason: PAIN LEVEL 7 - 10 Last Admin: 10/12/18 10:42 Dose: 5 mg Pantoprazole Sodium (Protonix -) 20 mg PO DAILY [facility] Last Admin: 10/12/18 10:20 Dose: 20 mg Polyethylene Glycol (Miralax (For Daily Use) -) 17 gm PO DAILY PRN PRN Reason: CONSTIPATION Tiotropium [place] (Spiriva Respimat) 2 puff IH DAILY [facility] Last Admin: 10/12/18 10:19 Dose: 2 puff Torsemide (Demadex -) 20 mg PO DAILY [facility] echo 12/2016: nl lv/rv, mild lae, mild mr, mild-mod tr, possible mild as, mild phtn exercise mibi 01/02: no ischemia at 80% mphr EKG: sinus, LBBB, mobitz 1 (similar to prior EKGs) tele: sinus, LBBB, mobitz I with 2:1 block at times a/p: 68M h/o CVA, HTN, HLD, COPD (on 3L O2), CKD, DM, TIA, chronic diastolic hf /venous insufficiency, 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 bradycardia, Abnormal EKG, mobitz 1, LBBB: - chronic findings, has had prior event monitors in clinic showing mobitz 1 without significant pauses - bradycardia likely in setting of hyperkalemia, appears to have improved with correction of K - avoid AV arsh blocking agents - has been stable from cardiac perspective, can dc tele elevated trop - borderline trop level with flat trend in setting of THERESA - no chest pain - not c/w acs COPD - seems stable presently chronic venous insuff/LE edema, recurrent cellulitis: - manage per primary PAD: -prior h/o left fem-pop bypass, cont asa, statin. no clear indication for plavix, stopped now, especially in setting of anemia. chronic diastolic CHF -echoes have been unremarkable or very TDS in past, most recent 12/2016 was unremarkable - BNP elevated, however in setting of THERESA, appears euvolemic, no dyspnea - received lasix IV x 2 yesterday for congestion - resuming home torsemide today, monitor Cr, I/O hyperkalemia - manage per primary THERESA - renal consulted elevated LFTs - GI consulted htn: -stable, controlled hld: -cont statin h/o TIA (2003): -on ASA, statin for sec prevention, cont same anemia: -no clear indication for plavix, so stopped now -he is on asa for PAD, can be held temporarily if needed -no cardiac contraindications to egd/foc if needed
[2018-10-13] MEDS: NYSTATIN 100,000 UNIT/GM TOPICAL CREAM 15 GM TUBE TP SCH ×2 (10:14→21:27)
[2018-10-13] MEDS: NYSTATIN/TRIAMCINOLONE TOPICAL OINTMENT 15 GM TUBE TP SCH ×2 (10:14→21:26)
[2018-10-13] MEDS: MINERAL OIL/PET HY-PHL TOPICAL OINTMENT 454 GM JAR TP SCH ×2 (10:15→21:26)
[2018-10-13] MEDS: BUDESONIDE/FORMETEROL FUMARATE 160/4.5 mcg INHALER IH SCH ×2 (10:20→21:19)
[2018-10-13] MEDS ORDERED: PT OWN MED DRAWER 7, Y5N ONE (10:20)
[2018-10-13] MEDS: TIOTROPIUM BROMIDE 2.5 MCG (SPIRIVA) RESPIMAT INHALER IH SCH (10:20)
--- NOTE | 2018-10-13 17:23 | PN ---
Progress Note (short form) - Note Progress Note: covering dr krishna Problems 68 year old gentleman with hx of CKD, MARTIN, COPD, CVA, DM who was sent to the ED from [place] for hyperkalemia and found to have THERESA/acute liver injury. #THERESA on CKD likely due to intravascular volume depletion #Abnormal LFT's/Acute liver injury #Chronic LE edema #Anemia Current Medications Albuterol Sulfate (Ventolin 0.083% Nebulizer Soln -) 1 amp NEB Q6H PRN PRN Reason: SHORT OF BREATH/WHEEZING Last Admin: 10/13/18 06:55 Dose: 1 amp Aspirin (Ecotrin -) 81 mg PO DAILY [facility] Last Admin: 10/13/18 10:05 Dose: 81 mg Budesonide/Formoterol Fumarate (Symbicort 160/4.5mcg -) 2 puff IH BID [facility] Last Admin: 10/13/18 10:20 Dose: 2 puff Emollient Ointment (Aquaphor -) 1 applic TP BID [facility] Last Admin: 10/13/18 10:15 Dose: 1 applic Heparin Sodium (Porcine) (Heparin -) 5,000 unit SQ BID [facility] Last Admin: 10/13/18 10:06 Dose: 5,000 unit Azithromycin (Zithromax 500mg Ivpb (Pre-Docked)) 500 mg in 250 mls @ 250 mls/ hr IVPB DAILY [facility] Last Admin: 10/13/18 10:06 Dose: 250 mls/hr Insulin Aspart (Novolog Vial Sliding Scale -) 1 vial SQ ACHS [facility]; Protocol Last Admin: 10/13/18 17:20 Dose: 2 units Lidocaine (Lidoderm Patch -) 1 patch TP DAILY [facility] Last Admin: 10/13/18 10:05 Dose: 1 patch Methylprednisolone Sodium Succinate (Solu-Medrol -) 40 mg IVPUSH BID [facility] Last Admin: 10/13/18 10:04 Dose: 40 mg Miscellaneous (Lidoderm Patch Removal) 1 each MC DAILY@2200 [facility] Last Admin: 10/12/18 21:00 Dose: 1 each Nystatin (Mycostatin Cream -) 1 applic TP BID [facility] Last Admin: 10/13/18 10:14 Dose: 1 applic Nystatin/Triamcinolone Acetonide (Mycolog Ii Ointment -) 1 applic TP BID [facility] Last Admin: 10/13/18 10:14 Dose: 1 applic Oxycodone HCl (Roxicodone -) 5 mg PO Q6H PRN PRN Reason: PAIN LEVEL 7 - 10 Last Admin: 10/12/18 10:42 Dose: 5 mg Pantoprazole Sodium (Protonix -) 20 mg PO DAILY [facility] Last Admin: 10/13/18 10:05 Dose: 20 mg Polyethylene Glycol (Miralax (For Daily Use) -) 17 gm PO DAILY PRN PRN Reason: CONSTIPATION Tiotropium [place] (Spiriva Respimat) 2 puff IH DAILY [facility] Last Admin: 10/13/18 10:20 Dose: 2 puff Torsemide (Demadex -) 20 mg PO DAILY [facility] Last Admin: 10/13/18 10:05 Dose: 20 mg Last Vital Signs Temp Pulse Resp BP Pulse Ox 97.6 F 80 20 139/57 L 2 L 10/13/18 09:00 10/13/18 09:00 10/13/18 09:00 10/13/18 09:00 10/13/18 09:00 CBC, BMP 10/12/18 06:15 10/13/18 06:30 Renal function is now improved and back to baseline. Give SOB and evidence of chest congestion will give IV Lasix this am (did get dose last night as well). Pt does appear clinically improved and can resume oral diuretics starting tomorrow. Would trend renal function and electrolytes during this time.
[2018-10-13] MEDS: LIDOCAINE PATCH REMOVAL MC SCH (21:18)
[2018-10-13] MEDS: oxyCODONE HCL 5 MG TABLET PO PRN (21:19)
[2018-10-14] MEDS: INSULIN SLIDING SCALE (NOVOLOG) 1 VIAL SQ SCH ×4 (06:34→22:25)
[2018-10-14 07:59] LABS: ALBUMIN 2.6 g/dl (3.4-5.0); ALK PHOS 90 U/L (45-117); ANION GAP 4 MMOL/L (8-16); BILIRUBIN,TOTAL 0.3 mg/dL (0.2-1); BLOOD UREA NITROGEN 44 mg/dL (7-18); CALCIUM 7.9 mg/dL (8.5-10.1); CHLORIDE 99 mmol/L (98-107); CO2 36 mmol/L (21-32); CREATININE 1.5 mg/dL (0.55-1.3); GLUCOSE,RANDOM 237 mg/dL (74-106); POTASSIUM 4.9 mmol/L (3.5-5.1); SGOT/AST 22 U/L (15-37); SGPT/ALT 158 U/L (13-61); SODIUM 140 mmol/L (136-145); TOT PROT 6.3 g/dl (6.4-8.2)
[2018-10-14 08:07] LABS: BASO % 0.2 % (0-2.0); HEMATOCRIT 27.7 % (35.4-49); HEMOGLOBIN 8.8 GM/dL (11.7-16.9); LYMPH % 3.3 % (8-40); MCH 24.8 pg (25.7-33.7); MCHC 31.7 g/dl (32.0-35.9); MEAN CELL VOLUME 78.3 fl (80-96); MEAN PLT VOLUME 8.3 fl (7.5-11.1); MONO % 3.1 % (3.8-10.2); NEUT % 93.4 % (42.8-82.8); PLATELET COUNT 248 K/MM3 (134-434); RBC 3.54 M/mm3 (4.00-5.60); RDW 18.6 % (11.9-15.9); WHITE BLOOD COUNT 8.7 K/mm3 (4.0-10.0)
--- NOTE | 2018-10-14 08:30 | PN ---
Progress Note, Physician Chief Complaint: in bed awake alert NAD no new c/o on Bipap prn, O2 cont - Current Medication List Current Medications: Active Medications Albuterol Sulfate (Ventolin 0.083% Nebulizer Soln -) 1 amp NEB Q6H PRN PRN Reason: SHORT OF BREATH/WHEEZING Last Admin: 10/13/18 20:26 Dose: 1 amp Aspirin (Ecotrin -) 81 mg PO DAILY [facility] Last Admin: 10/13/18 10:05 Dose: 81 mg Budesonide/Formoterol Fumarate (Symbicort 160/4.5mcg -) 2 puff IH BID [facility] Last Admin: 10/13/18 21:19 Dose: 2 puff Emollient Ointment (Aquaphor -) 1 applic TP BID [facility] Last Admin: 10/13/18 21:26 Dose: 1 applic Ferrous Sulfate (Feosol -) 325 mg PO DAILY [facility] Heparin Sodium (Porcine) (Heparin -) 5,000 unit SQ BID [facility] Last Admin: 10/13/18 21:18 Dose: 5,000 unit Azithromycin (Zithromax 500mg Ivpb (Pre-Docked)) 500 mg in 250 mls @ 250 mls/ hr IVPB DAILY [facility] Last Admin: 10/13/18 10:06 Dose: 250 mls/hr Insulin Aspart (Novolog Vial Sliding Scale -) 1 vial SQ ACHS [facility]; Protocol Last Admin: 10/14/18 06:34 Dose: 8 units Lidocaine (Lidoderm Patch -) 1 patch TP DAILY [facility] Last Admin: 10/13/18 10:05 Dose: 1 patch Methylprednisolone Sodium Succinate (Solu-Medrol -) 20 mg IVPUSH BID [facility] Miscellaneous (Lidoderm Patch Removal) 1 each MC DAILY@2200 [facility] Last Admin: 10/13/18 21:18 Dose: 1 each Nystatin (Mycostatin Cream -) 1 applic TP BID [facility] Last Admin: 10/13/18 21:27 Dose: 1 applic Nystatin/Triamcinolone Acetonide (Mycolog Ii Ointment -) 1 applic TP BID [facility] Last Admin: 10/13/18 21:26 Dose: 1 applic Oxycodone HCl (Roxicodone -) 5 mg PO Q6H PRN PRN Reason: PAIN LEVEL 7 - 10 Last Admin: 10/13/18 21:19 Dose: 5 mg Pantoprazole Sodium (Protonix -) 20 mg PO DAILY [facility] Last Admin: 10/13/18 10:05 Dose: 20 mg Polyethylene Glycol (Miralax (For Daily Use) -) 17 gm PO DAILY PRN PRN Reason: CONSTIPATION Tiotropium [place] (Spiriva Respimat) 2 puff IH DAILY [facility] Last Admin: 10/13/18 10:20 Dose: 2 puff Torsemide (Demadex -) 20 mg PO DAILY [facility] Last Admin: 10/13/18 10:05 Dose: 20 mg - Objective Vital Signs: Vital Signs Temperature 97.9 F 10/14/18 06:00 Pulse Rate 52 L 10/14/18 06:00 Respiratory Rate 20 10/14/18 06:00 Blood Pressure 154/98 10/14/18 06:00 O2 Sat by Pulse Oximetry (%) 98 10/13/18 21:00 Constitutional: Yes: No Distress, Calm Eyes: Yes: Conjunctiva Clear HENT: Yes: Atraumatic Neck: Yes: Supple Cardiovascular: Yes: Regular Rate and Rhythm Respiratory: Yes: Diminished Gastrointestinal: Yes: Soft. No: Distention Genitourinary: No: CVA Tenderness - Left, CVA Tenderness - Right, Hematuria Musculoskeletal: No: Joint Stiffness, Joint Swelling Extremities: Yes: Erythema. No: Cold, Cool, Cyanosis Edema: Yes Integumentary: Yes: Rash (chronic, stable), Venous Stasis Changes Neurological: Yes: WNL, Alert, Oriented ...Motor Strength: WNL Psychiatric: Yes: WNL, Alert, Oriented. No: Agitated, Suicidal Ideation Labs: CBC, BMP 10/14/18 06:30 10/14/18 06:30 INR, PTT INR 1.43 (0.83-1.09) H 10/10/18 06:00 - ....Imaging Other: Report Reviewed Assessment/Plan ASHD PVD DM OA DJD CRF legs cellulitis and chronic venous insufficiency admitted with ARF/CRF dehydration, high LFTs, one episode of BRBPR and anemia, + troponin, possible RLL infiltrate/PNA COPD/CHF exac, taper iv steroids, nebs O2, Bipap, nebs, O2 seen by GI, renal and cardiology; will need anemia w/u EGD Colonoscopy and heme f/u - needs cardiac and pulmonary clearance continue meds; f/u labs falls PFX, DVT, decubs PFX legs wounds care f/u labs, cx d/w pt and staff
--- NOTE | 2018-10-14 09:55 | PN ---
Progress Note (short form) - Note Progress Note: - Note Progress Note: s: no cp sob palps dizzy o: Vital Signs Period Temp Pulse Resp BP Sys/Mullen Pulse Ox Last 24 Hr 97.6 F-98.1 F 52-71 18-20 149-159/78-98 98-98 Constitutional: Yes: No Distress, Calm Eyes: Yes: Conjunctiva Clear, Neck: Yes: Supple, Trachea Midline Respiratory: Yes: cta bl nl eff Gastrointestinal: Yes: Normal Bowel Sounds, Soft Cardiovascular: Yes: Regular Rate and Rhythm JVD: No Carotid Bruit: No Heart Sounds: Yes: S1, S2 Extremities: Yes: Erythema, Other (erythema bilateral feet and ankles with weeping from wounds) Edema: trace/1+ le edema bl Peripheral Pulses: 1+ Left Doralis Pedis, 1+ Right Dorsalis Pedis Integumentary: no jaundice diaphoresis aaox3 Current Medications Albuterol Sulfate (Ventolin 0.083% Nebulizer Soln -) 1 amp NEB Q6H PRN PRN Reason: SHORT OF BREATH/WHEEZING Last Admin: 10/13/18 20:26 Dose: 1 amp Aspirin (Ecotrin -) 81 mg PO DAILY [facility] Last Admin: 10/13/18 10:05 Dose: 81 mg Budesonide/Formoterol Fumarate (Symbicort 160/4.5mcg -) 2 puff IH BID [facility] Last Admin: 10/13/18 21:19 Dose: 2 puff Emollient Ointment (Aquaphor -) 1 applic TP BID [facility] Last Admin: 10/13/18 21:26 Dose: 1 applic Ferrous Sulfate (Feosol -) 325 mg PO DAILY [facility] Heparin Sodium (Porcine) (Heparin -) 5,000 unit SQ BID [facility] Last Admin: 10/13/18 21:18 Dose: 5,000 unit Azithromycin (Zithromax 500mg Ivpb (Pre-Docked)) 500 mg in 250 mls @ 250 mls/ hr IVPB DAILY [facility] Last Admin: 10/13/18 10:06 Dose: 250 mls/hr Insulin Aspart (Novolog Vial Sliding Scale -) 1 vial SQ ACHS [facility]; Protocol Last Admin: 10/14/18 06:34 Dose: 8 units Lidocaine (Lidoderm Patch -) 1 patch TP DAILY [facility] Last Admin: 10/13/18 10:05 Dose: 1 patch Methylprednisolone Sodium Succinate (Solu-Medrol -) 20 mg IVPUSH BID [facility] Miscellaneous (Lidoderm Patch Removal) 1 each MC DAILY@2200 [facility] Last Admin: 10/13/18 21:18 Dose: 1 each Nystatin (Mycostatin Cream -) 1 applic TP BID [facility] Last Admin: 10/13/18 21:27 Dose: 1 applic Nystatin/Triamcinolone Acetonide (Mycolog Ii Ointment -) 1 applic TP BID [facility] Last Admin: 10/13/18 21:26 Dose: 1 applic Oxycodone HCl (Roxicodone -) 5 mg PO Q6H PRN PRN Reason: PAIN LEVEL 7 - 10 Last Admin: 10/13/18 21:19 Dose: 5 mg Pantoprazole Sodium (Protonix -) 20 mg PO DAILY [facility] Last Admin: 10/13/18 10:05 Dose: 20 mg Polyethylene Glycol (Miralax (For Daily Use) -) 17 gm PO DAILY PRN PRN Reason: CONSTIPATION Tiotropium [place] (Spiriva Respimat) 2 puff IH DAILY [facility] Last Admin: 10/13/18 10:20 Dose: 2 puff Torsemide (Demadex -) 20 mg PO DAILY [facility] Last Admin: 10/13/18 10:05 Dose: 20 mg echo 12/2016: nl lv/rv, mild lae, mild mr, mild-mod tr, possible mild as, mild phtn exercise mibi 01/02: no ischemia at 80% mphr EKG: sinus, LBBB, mobitz 1 (similar to prior EKGs) tele: sinus, LBBB, mobitz I with 2:1 block at times a/p: 68M h/o CVA, HTN, HLD, COPD (on 3L O2), CKD, DM, TIA, chronic diastolic hf /venous insufficiency, 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 bradycardia, Abnormal EKG, mobitz 1, LBBB: - chronic findings, has had prior event monitors in clinic showing mobitz 1 without significant pauses - bradycardia likely in setting of hyperkalemia, appears to have improved with correction of K - avoid AV arsh blocking agents - has been stable from cardiac perspective, can dc tele elevated trop - borderline trop level with flat trend in setting of THERESA - no chest pain - not c/w acs COPD - seems stable presently chronic venous insuff/LE edema, recurrent cellulitis: - manage per primary PAD: -prior h/o left fem-pop bypass, cont asa, statin. no clear indication for plavix, stopped now, especially in setting of anemia. chronic diastolic CHF -echoes have been unremarkable or very TDS in past, most recent 12/2016 was unremarkable - BNP elevated, however in setting of THERESA, appears euvolemic, no dyspnea - received lasix IV x 2 for congestion - now on home torsemide monitor Cr, I/O hyperkalemia - manage per primary THERESA - renal consulted elevated LFTs - GI consulted htn: -stable, controlled hld: -cont statin h/o TIA (2003): -on ASA, statin for sec prevention, cont same anemia: -no clear indication for plavix, so stopped now -he is on asa for PAD, can be held temporarily if needed -no cardiac contraindications to egd/foc if needed
[2018-10-14] MEDS ORDERED: FERROUS SO4 325 MG TABLET (FP) PO SCH (10:00)
[2018-10-14] MEDS: methylPREDNISolone NA SUCC 40 MG/1 ML VIAL IVPUSH SCH ×3 (10:46→22:24)
[2018-10-14] MEDS: AZITHROMYCIN IVPB 500 MG/250 ML BAG IVPB SCH (10:46)
[2018-10-14] MEDS: ASPIRIN COATED 81 MG TABLET.EC PO SCH (10:46)
[2018-10-14] MEDS: LIDOCAINE 5% TOPICAL PATCH TP SCH (10:47)
[2018-10-14] MEDS: NYSTATIN/TRIAMCINOLONE TOPICAL OINTMENT 15 GM TUBE TP SCH ×2 (10:47→22:31)
[2018-10-14] MEDS: PANTOPRAZOLE 20 MG TABLET (FP) PO SCH ×2 (10:48→17:21)
[2018-10-14] MEDS: TIOTROPIUM BROMIDE 2.5 MCG (SPIRIVA) RESPIMAT INHALER IH SCH (10:48)
[2018-10-14] MEDS: NYSTATIN 100,000 UNIT/GM TOPICAL CREAM 15 GM TUBE TP SCH ×2 (10:48→22:31)
[2018-10-14] MEDS: BUDESONIDE/FORMETEROL FUMARATE 160/4.5 mcg INHALER IH SCH ×2 (10:48→22:24)
[2018-10-14] MEDS: HEPARIN NA (PORCINE) 5,000 UNITS/ML 1ML VIAL SQ SCH ×2 (10:52→22:24)
[2018-10-14] MEDS: TORSEMIDE 20 MG TABLET (FP) PO SCH (10:57)
[2018-10-14] MEDS: MINERAL OIL/PET HY-PHL TOPICAL OINTMENT 454 GM JAR TP SCH ×2 (10:57→22:31)
--- NOTE | 2018-10-14 12:16 | PN ---
Progress Note (short form) - Note Progress Note: PULMONARY Some mild cough and wheezing. Denies shortness of breath. Vital Signs Period Temp Pulse Resp BP Sys/Mullen Pulse Ox Last 24 Hr 97.6 F-98.1 F 52-71 18-20 149-159/78-98 98-98 Gen: NAD at rest Heart: RRR Lung: decreased breath sounds at the bases Abd: soft, nontender Ext: + edema CBC, BMP 10/14/18 06:30 10/14/18 06:30 Active Medications Albuterol Sulfate (Ventolin 0.083% Nebulizer Soln -) 1 amp NEB Q6H PRN PRN Reason: SHORT OF BREATH/WHEEZING Last Admin: 10/13/18 20:26 Dose: 1 amp Aspirin (Ecotrin -) 81 mg PO DAILY [facility] Last Admin: 10/14/18 10:46 Dose: 81 mg Budesonide/Formoterol Fumarate (Symbicort 160/4.5mcg -) 2 puff IH BID [facility] Last Admin: 10/14/18 10:48 Dose: 2 puff Emollient Ointment (Aquaphor -) 1 applic TP BID [facility] Last Admin: 10/14/18 10:57 Dose: 1 applic Ferrous Sulfate (Feosol -) 325 mg PO DAILY [facility] Last Admin: 10/14/18 10:47 Dose: 325 mg Heparin Sodium (Porcine) (Heparin -) 5,000 unit SQ BID [facility] Last Admin: 10/14/18 10:52 Dose: 5,000 unit Azithromycin (Zithromax 500mg Ivpb (Pre-Docked)) 500 mg in 250 mls @ 250 mls/ hr IVPB DAILY [facility] Last Admin: 10/14/18 10:46 Dose: 250 mls/hr Insulin Aspart (Novolog Vial Sliding Scale -) 1 vial SQ ACHS [facility]; Protocol Last Admin: 10/14/18 06:34 Dose: 8 units Lidocaine (Lidoderm Patch -) 1 patch TP DAILY [facility] Last Admin: 10/14/18 10:47 Dose: 1 patch Methylprednisolone Sodium Succinate (Solu-Medrol -) 20 mg IVPUSH BID [facility] Last Admin: 10/14/18 10:57 Dose: 20 mg Miscellaneous (Lidoderm Patch Removal) 1 each MC DAILY@2200 [facility] Last Admin: 10/13/18 21:18 Dose: 1 each Nystatin (Mycostatin Cream -) 1 applic TP BID [facility] Last Admin: 10/14/18 10:48 Dose: 1 applic Nystatin/Triamcinolone Acetonide (Mycolog Ii Ointment -) 1 applic TP BID [facility] Last Admin: 10/14/18 10:47 Dose: 1 applic Oxycodone HCl (Roxicodone -) 5 mg PO Q6H PRN PRN Reason: PAIN LEVEL 7 - 10 Last Admin: 10/13/18 21:19 Dose: 5 mg Pantoprazole Sodium (Protonix -) 20 mg PO DAILY [facility] Last Admin: 10/14/18 10:48 Dose: 20 mg Polyethylene Glycol (Miralax (For Daily Use) -) 17 gm PO DAILY PRN PRN Reason: CONSTIPATION Tiotropium [place] (Spiriva Respimat) 2 puff IH DAILY [facility] Last Admin: 10/14/18 10:48 Dose: 2 puff Torsemide (Demadex -) 20 mg PO DAILY [facility] Last Admin: 10/14/18 10:57 Dose: 20 mg A/P s/p Fall Bradycardia HTN DM COPD Chronic Hypoxic Respiratory Failure PAD h/o CVA Elevated LFTs Anemia - inhaled bronchodilators - O2 to keep Spo2 >90% - agree with prophylactic steroids prior to endoscopic procedures - DVT prophylaxis
[2018-10-14] MEDS ORDERED: PT OWN MED DRAWER 7, Y5N ONE ×3 (12:26→22:17)
--- NOTE | 2018-10-14 14:04 | PN ---
GI Progress Note Subjective: GI Note: Asked by Dr Valle to consider comprehensive endoscopic evaluation of rectal bleeding and the microcytic anemia. Calixto denies ractal bleeding. he has no abdominal complaints and claims to be moving his bowels regularly. When I last saw him in consultation in 2014 he reported that he an EGD and a colonoscopy with Dr Cleaning in 01/04 I discussed colonoscopy and EGD at length with Calixto. I informed him of the potential for such complications as perforation and hemorrhage that could necessitate surgery and transfusions. I explained hat the main purpose would be to exclude a malignancy. I also explained that given is pulmonary situation that he is at risk of requiring intubation with likely weaning difficulties. I also explained that we would need to wait until his Plavix wears off. It was stopped on 10/10. He wants to discuss it with his and daughter in law who is a ada accommodation consultant at [facility]. I called his but could only leave a message. - Objective Vital Signs: Vital Signs Temperature 97.9 F 10/14/18 06:00 Pulse Rate 52 L 10/14/18 06:00 Respiratory Rate 20 10/14/18 06:00 Blood Pressure 154/98 10/14/18 06:00 O2 Sat by Pulse Oximetry (%) 98 10/13/18 21:00 Constitutional: Calm ...Auscultate: Yes: Normoactive Bowel Sounds ...Palpate: Yes: Soft, Other (nontender) Psychiatric: Yes: Alert, Oriented Labs: CBC, BMP 10/14/18 06:30 10/14/18 06:30 INR, PTT INR 1.43 (0.83-1.09) H 10/10/18 06:00 Laboratory Tests 10/09/18 10/10/18 10/11/18 16:35 06:00 06:00 AST 261 H 181 H ALT 293 H 257 H Alkaline Phosphatase 113 110 10/12/18 10/14/18 06:15 06:30 AST 128 H 22 ALT 270 H 158 H Alkaline Phosphatase 90 Problem List - Problems (1) Microcytic anemia Assessment/Plan: I await the patient's decision regarding consents for an EGD and colonoscopy which could be done on 10/17. Also await pulmonary and cardiology clearances. Will start Miralax in anticipation that we will be able to proceed. Code(s): D50.9 - IRON DEFICIENCY ANEMIA, UNSPECIFIED (2) Elevated LFTs Code(s): R94.5 - ABNORMAL RESULTS OF LIVER FUNCTION STUDIES (3) Acute on chronic respiratory failure with hypoxia and hypercapnia Code(s): J96.21 - ACUTE AND CHRONIC RESPIRATORY FAILURE WITH HYPOXIA; J96.22 - ACUTE AND CHRONIC RESPIRATORY FAILURE WITH HYPERCAPNIA (4) COPD (chronic obstructive pulmonary disease) Code(s): J44.9 - CHRONIC OBSTRUCTIVE PULMONARY DISEASE, UNSPECIFIED Qualifiers: COPD type: unspecified COPD Qualified Code(s): J44.9 - Chronic obstructive pulmonary disease, unspecified (5) Diabetes mellitus Code(s): E11.9 - TYPE 2 DIABETES MELLITUS WITHOUT COMPLICATIONS (6) Sepsis Code(s): A41.9 - SEPSIS, UNSPECIFIED ORGANISM (7) Sleep apnea Code(s): G47.30 - SLEEP APNEA, UNSPECIFIED (8) Morbid obesity Code(s): E66.01 - MORBID (SEVERE) OBESITY DUE TO EXCESS CALORIES (9) Fatty liver Code(s): K76.0 - FATTY (CHANGE OF) LIVER, NOT ELSEWHERE CLASSIFIED (10) Gallbladder calculus Code(s): K80.20 - CALCULUS OF GALLBLADDER W/O CHOLECYSTITIS W/O OBSTRUCTION
[2018-10-14 14:29] LABS: ANISOCYTOSIS 0; MACROCYTOSIS 0; PLATELET ESTIMATE NORMAL
[2018-10-14] MEDS ORDERED: PHYTONADIONE 10 MG/1 ML AMP IVPB ONE (15:15)
[2018-10-14] MEDS ORDERED: IRON SUCROSE INJECTION 100 MG in SODIUM CHLORIDE 95 ML IVPB ONE (15:15)
--- NOTE | 2018-10-14 18:42 | PN ---
Progress Note (short form) - Note Progress Note: covering dr krishna Problems 68 year old gentleman with hx of CKD, MARTIN, COPD, CVA, DM who was sent to the ED from [place] for hyperkalemia and found to have THERESA/acute liver injury. #THERESA on CKD likely due to intravascular volume depletion #Abnormal LFT's/Acute liver injury #Chronic LE edema #Anemia Current Medications Albuterol Sulfate (Ventolin 0.083% Nebulizer Soln -) 1 amp NEB Q6H PRN PRN Reason: SHORT OF BREATH/WHEEZING Last Admin: 10/13/18 20:26 Dose: 1 amp Aspirin (Ecotrin -) 81 mg PO DAILY [facility] Last Admin: 10/14/18 10:46 Dose: 81 mg Budesonide/Formoterol Fumarate (Symbicort 160/4.5mcg -) 2 puff IH BID [facility] Last Admin: 10/14/18 10:48 Dose: 2 puff Emollient Ointment (Aquaphor -) 1 applic TP BID [facility] Last Admin: 10/14/18 10:57 Dose: 1 applic Heparin Sodium (Porcine) (Heparin -) 5,000 unit SQ BID [facility] Last Admin: 10/14/18 10:52 Dose: 5,000 unit Azithromycin (Zithromax 500mg Ivpb (Pre-Docked)) 500 mg in 250 mls @ 250 mls/ hr IVPB DAILY [facility] Last Admin: 10/14/18 10:46 Dose: 250 mls/hr Insulin Aspart (Novolog Vial Sliding Scale -) 1 vial SQ ACHS [facility]; Protocol Last Admin: 10/14/18 17:17 Dose: 4 units Lidocaine (Lidoderm Patch -) 1 patch TP DAILY [facility] Last Admin: 10/14/18 10:47 Dose: 1 patch Methylprednisolone Sodium Succinate (Solu-Medrol -) 20 mg IVPUSH BID [facility] Last Admin: 10/14/18 10:57 Dose: 20 mg Miscellaneous (Lidoderm Patch Removal) 1 each MC DAILY@2200 [facility] Last Admin: 10/13/18 21:18 Dose: 1 each Nystatin (Mycostatin Cream -) 1 applic TP BID [facility] Last Admin: 10/14/18 10:48 Dose: 1 applic Nystatin/Triamcinolone Acetonide (Mycolog Ii Ointment -) 1 applic TP BID [facility] Last Admin: 10/14/18 10:47 Dose: 1 applic Oxycodone HCl (Roxicodone -) 5 mg PO Q6H PRN PRN Reason: PAIN LEVEL 7 - 10 Last Admin: 10/13/18 21:19 Dose: 5 mg Pantoprazole Sodium (Protonix -) 40 mg PO DAILY [facility] Last Admin: 10/14/18 17:21 Dose: 40 mg Polyethylene Glycol (Miralax (For Daily Use) -) 17 gm PO BID [facility] Tiotropium [place] (Spiriva Respimat) 2 puff IH DAILY [facility] Last Admin: 10/14/18 10:48 Dose: 2 puff Torsemide (Demadex -) 20 mg PO DAILY [facility] Last Admin: 10/14/18 10:57 Dose: 20 mg Last Vital Signs Temp Pulse Resp BP Pulse Ox 98.0 F 72 18 141/68 98 10/14/18 18:00 10/14/18 18:00 10/14/18 18:00 10/14/18 18:00 10/13/18 21:00 Lungs clear Heart reg Abd soft Ext lower ext chronic edema CBC, BMP 10/12/18 06:15 10/13/18 06:30 IMP- ckd anemia dm Plan Renal function is now improved and back to baseline. Give SOB and evidence of chest congestion will give IV Lasix this am (did get dose last night as well). Pt does appear clinically improved and can resume oral diuretics starting tomorrow. Would trend renal function and electrolytes during this time.
[2018-10-14] MEDS: oxyCODONE HCL 5 MG TABLET PO PRN (22:26)
[2018-10-14] MEDS: POLYETHYLENE GLYCOL 3350 119 GM BTL PO SCH (22:26)
[2018-10-14] MEDS: LIDOCAINE PATCH REMOVAL MC SCH (22:38)
[2018-10-15] MEDS: INSULIN SLIDING SCALE (NOVOLOG) 1 VIAL SQ SCH ×4 (06:00→21:13)
[2018-10-15 07:04] LABS: INR 1.24 (0.83-1.09); PROTHROMBIN TIME (PATIENT) 14.7 SEC (9.7-13.0)
[2018-10-15 07:09] LABS: ALBUMIN 2.6 g/dl (3.4-5.0); ALK PHOS 84 U/L (45-117); ANION GAP 5 MMOL/L (8-16); BILIRUBIN,DIRECT 0.2 mg/dL (0.0-0.2); BILIRUBIN,TOTAL 0.4 mg/dL (0.2-1); BLOOD UREA NITROGEN 42 mg/dL (7-18); CALCIUM 8.1 mg/dL (8.5-10.1); CHLORIDE 95 mmol/L (98-107); CO2 39 mmol/L (21-32); CREATININE 1.4 mg/dL (0.55-1.3); GLUCOSE,RANDOM 223 mg/dL (74-106); POTASSIUM 4.9 mmol/L (3.5-5.1); SGOT/AST 15 U/L (15-37); SGPT/ALT 121 U/L (13-61); SODIUM 139 mmol/L (136-145); TOT PROT 6.3 g/dl (6.4-8.2)
[2018-10-15] MEDS: ALBUTEROL SO4 0.083% IH SOL 2.5 MG/3 ML VIAL.NEB. NEB PRN ×2 (07:25→22:01)
--- NOTE | 2018-10-15 07:51 | PN ---
Progress Note, Physician Chief Complaint: no new c/o d/w pt about EGD colonoscopy, to d/w GI, also needs cardio and pulm clearance - Current Medication List Current Medications: Active Medications Albuterol Sulfate (Ventolin 0.083% Nebulizer Soln -) 1 amp NEB Q6H PRN PRN Reason: SHORT OF BREATH/WHEEZING Last Admin: 10/13/18 20:26 Dose: 1 amp Aspirin (Ecotrin -) 81 mg PO DAILY [facility] Last Admin: 10/14/18 10:46 Dose: 81 mg Budesonide/Formoterol Fumarate (Symbicort 160/4.5mcg -) 2 puff IH BID [facility] Last Admin: 10/14/18 22:24 Dose: 2 puff Emollient Ointment (Aquaphor -) 1 applic TP BID [facility] Last Admin: 10/14/18 22:31 Dose: 1 applic Heparin Sodium (Porcine) (Heparin -) 5,000 unit SQ BID [facility] Last Admin: 10/14/18 22:24 Dose: 5,000 unit Azithromycin (Zithromax 500mg Ivpb (Pre-Docked)) 500 mg in 250 mls @ 250 mls/ hr IVPB DAILY [facility] Last Admin: 10/14/18 10:46 Dose: 250 mls/hr Insulin Aspart (Novolog Vial Sliding Scale -) 1 vial SQ ACHS [facility]; Protocol Last Admin: 10/15/18 06:00 Dose: 4 units Lidocaine (Lidoderm Patch -) 1 patch TP DAILY [facility] Last Admin: 10/14/18 10:47 Dose: 1 patch Methylprednisolone Sodium Succinate (Solu-Medrol -) 20 mg IVPUSH BID [facility] Last Admin: 10/14/18 22:24 Dose: 20 mg Miscellaneous (Lidoderm Patch Removal) 1 each MC DAILY@2200 [facility] Last Admin: 10/14/18 22:38 Dose: 1 each Nystatin (Mycostatin Cream -) 1 applic TP BID [facility] Last Admin: 10/14/18 22:31 Dose: 1 applic Nystatin/Triamcinolone Acetonide (Mycolog Ii Ointment -) 1 applic TP BID [facility] Last Admin: 10/14/18 22:31 Dose: 1 applic Oxycodone HCl (Roxicodone -) 5 mg PO Q6H PRN PRN Reason: PAIN LEVEL 7 - 10 Last Admin: 10/14/18 22:26 Dose: 5 mg Pantoprazole Sodium (Protonix -) 40 mg PO DAILY [facility] Last Admin: 10/14/18 17:21 Dose: 40 mg Polyethylene Glycol (Miralax (For Daily Use) -) 17 gm PO BID [facility] Last Admin: 10/14/18 22:26 Dose: 17 gm Tiotropium [place] (Spiriva Respimat) 2 puff IH DAILY [facility] Last Admin: 10/14/18 10:48 Dose: 2 puff Torsemide (Demadex -) 20 mg PO DAILY [facility] Last Admin: 10/14/18 10:57 Dose: 20 mg - Objective Vital Signs: Vital Signs Temperature 98.0 F 10/15/18 06:00 Pulse Rate 55 L 10/15/18 06:00 Respiratory Rate 18 10/15/18 06:00 Blood Pressure 136/54 L 10/15/18 06:00 O2 Sat by Pulse Oximetry (%) 99 10/14/18 22:47 Constitutional: Yes: No Distress, Calm Eyes: Yes: Conjunctiva Clear HENT: Yes: Atraumatic Neck: Yes: Supple Cardiovascular: Yes: Regular Rate and Rhythm Respiratory: Yes: CTA Bilaterally Gastrointestinal: Yes: Soft. No: Distention Genitourinary: No: CVA Tenderness - Left, CVA Tenderness - Right Musculoskeletal: No: Joint Stiffness, Joint Swelling Extremities: No: Cold, Cool, Cyanosis Edema: Yes Integumentary: Yes: Venous Stasis Changes Neurological: Yes: WNL, Alert, Oriented ...Motor Strength: WNL Psychiatric: Yes: WNL, Alert, Oriented. No: Agitated, Suicidal Ideation Labs: CBC, BMP 10/14/18 06:30 10/15/18 06:00 INR, PTT INR 1.24 (0.83-1.09) H 10/15/18 06:00 - ....Imaging Other: Report Reviewed Assessment/Plan ASHD PVD DM OA DJD CRF legs cellulitis and chronic venous insufficiency admitted with ARF/CRF dehydration, high LFTs, one episode of BRBPR and anemia, + troponin, s/p PNA COPD/CHF exac, taper iv steroids, nebs O2, Bipap, nebs, O2 seen by GI, renal and cardiology; will need anemia w/u EGD Colonoscopy and heme f/u - needs cardiac and pulmonary clearance continue meds; f/u labs falls PFX, DVT, decubs PFX legs wounds care f/u labs, cx d/w pt and staff
[2018-10-15] MEDS ORDERED: PT OWN MED DRAWER 7, Y5N ONE ×3 (09:59→20:56)
[2018-10-15] MEDS: LIDOCAINE 5% TOPICAL PATCH TP SCH (10:06)
[2018-10-15] MEDS: ASPIRIN COATED 81 MG TABLET.EC PO SCH (10:06)
[2018-10-15] MEDS: HEPARIN NA (PORCINE) 5,000 UNITS/ML 1ML VIAL SQ SCH ×2 (10:07→21:11)
[2018-10-15] MEDS: TORSEMIDE 20 MG TABLET (FP) PO SCH (10:07)
[2018-10-15] MEDS: PANTOPRAZOLE 20 MG TABLET (FP) PO SCH (10:07)
[2018-10-15] MEDS: methylPREDNISolone NA SUCC 40 MG/1 ML VIAL IVPUSH SCH ×2 (10:08→21:10)
[2018-10-15] MEDS: BUDESONIDE/FORMETEROL FUMARATE 160/4.5 mcg INHALER IH SCH ×2 (10:09→21:12)
[2018-10-15] MEDS: NYSTATIN/TRIAMCINOLONE TOPICAL OINTMENT 15 GM TUBE TP SCH ×2 (10:20→21:14)
[2018-10-15] MEDS: NYSTATIN 100,000 UNIT/GM TOPICAL CREAM 15 GM TUBE TP SCH ×2 (10:20→21:14)
[2018-10-15] MEDS: POLYETHYLENE GLYCOL 3350 119 GM BTL PO SCH ×2 (10:21→21:14)
[2018-10-15] MEDS: MINERAL OIL/PET HY-PHL TOPICAL OINTMENT 454 GM JAR TP SCH ×2 (10:21→21:15)
[2018-10-15] MEDS: TIOTROPIUM BROMIDE 2.5 MCG (SPIRIVA) RESPIMAT INHALER IH SCH (10:22)
[2018-10-15] MEDS: AZITHROMYCIN IVPB 500 MG/250 ML BAG IVPB SCH (10:23)
--- NOTE | 2018-10-15 10:49 | PN ---
Progress Note (short form) - Note Progress Note: s: no cp sob palps dizzy o: Vital Signs Period Temp Pulse Resp BP Sys/Mullen Pulse Ox Last 24 Hr 97.2 F-98.0 F 55-73 16-18 136-156/54-76 95-99 Constitutional: Yes: No Distress, Calm Eyes: Yes: Conjunctiva Clear, Neck: Yes: Supple, Trachea Midline Respiratory: Yes: cta bl nl eff Gastrointestinal: Yes: Normal Bowel Sounds, Soft Cardiovascular: Yes: Regular Rate and Rhythm JVD: No Carotid Bruit: No Heart Sounds: Yes: S1, S2 Extremities: Yes: Erythema, Other (erythema bilateral feet and ankles with weeping from wounds) Edema: trace/1+ le edema bl Peripheral Pulses: 1+ Left Doralis Pedis, 1+ Right Dorsalis Pedis Integumentary: no jaundice diaphoresis [id number] Current Medications Generic Name Dose Route Start Last Admin Trade Name Freq PRN Reason Stop Dose Admin Albuterol Sulfate 1 amp 10/09/18 20:38 10/15/18 07:25 Ventolin 0.083% Nebulizer Soln - NEB 1 amp Q6H PRN Administration SHORT OF BREATH/WHEEZING Aspirin 81 mg 10/10/18 10:00 10/15/18 10:06 Ecotrin - PO 81 mg DAILY RAJESH Administration Budesonide/Formoterol Fumarate 2 puff 10/09/18 22:00 10/15/18 10:09 Symbicort 160/4.5mcg - IH 2 puff BID RAJESH Administration Emollient Ointment 1 applic 10/09/18 22:00 10/15/18 10:21 Aquaphor - TP 1 applic BID RAJESH Administration Heparin Sodium (Porcine) 5,000 unit 10/11/18 22:30 10/15/18 10:07 Heparin - SQ 5,000 unit BID RAJESH Administration Azithromycin 500 mg in 250 mls @ 250 mls/hr 10/12/18 10:00 10/15/18 10:23 Zithromax 500mg Ivpb (Pre-Docked) IVPB 250 mls/hr DAILY RAJESH Administration Insulin Aspart 1 vial 10/09/18 22:00 10/15/18 06:00 Novolog Vial Sliding Scale - SQ 4 units ACHS RAJESH Administration Protocol Lidocaine 1 patch 10/10/18 10:00 10/15/18 10:06 Lidoderm Patch - TP 1 patch DAILY RAJESH Administration Methylprednisolone Sodium Succinate 20 mg 10/14/18 08:45 10/15/18 10:08 Solu-Medrol - IVPUSH 20 mg BID RAJESH Administration Miscellaneous 1 each 10/09/18 22:00 10/14/18 22:38 Lidoderm Patch Removal MC 1 each DAILY@2200 RAJESH Administration Nystatin 1 applic 10/09/18 22:00 10/15/18 10:20 Mycostatin Cream - TP 1 applic BID RAJESH Administration Nystatin/Triamcinolone Acetonide 1 applic 10/09/18 22:00 10/15/18 10:20 Mycolog Ii Ointment - TP 1 applic BID RAJESH Administration Oxycodone HCl 5 mg 10/10/18 08:52 10/14/18 22:26 Roxicodone - PO 5 mg Q6H PRN Administration PAIN LEVEL 7 - 10 Pantoprazole Sodium 40 mg 10/14/18 15:15 10/15/18 10:07 Protonix - PO 40 mg DAILY RAJESH Administration Polyethylene Glycol 17 gm 10/14/18 22:00 10/15/18 10:21 Miralax (For Daily Use) - PO 17 gm BID RAJESH Administration Tiotropium [place] 2 puff 10/10/18 10:00 10/15/18 10:22 Spiriva Respimat IH 2 puff DAILY RAJESH Administration Torsemide 20 mg 10/13/18 10:00 10/15/18 10:07 Demadex - PO 20 mg DAILY RAJESH Administration CBC, BMP 10/14/18 06:30 10/15/18 06:00 echo 12/2016: nl lv/rv, mild lae, mild mr, mild-mod tr, possible mild as, mild phtn exercise mibi 01/02: no ischemia at 80% mphr EKG: sinus, LBBB, mobitz 1 (similar to prior EKGs) tele: sinus, LBBB, mobitz I a/p: 68M h/o CVA, HTN, HLD, COPD (on 3L O2), CKD, DM, TIA, chronic diastolic hf /venous insufficiency, 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 bradycardia, Abnormal EKG, mobitz 1, LBBB: - chronic findings, has had prior event monitors in clinic showing mobitz 1 without significant pauses - bradycardia likely in setting of hyperkalemia, appears to have improved with correction of K - avoid AV arsh blocking agents - can dc tele elevated trop - borderline trop level with flat trend in setting of THERESA - no chest pain - not c/w acs COPD - seems stable presently chronic venous insuff/LE edema, recurrent cellulitis: - manage per primary PAD: -prior h/o left fem-pop bypass, cont asa, statin. no clear indication for plavix, stopped now, especially in setting of anemia. chronic diastolic CHF -echoes have been unremarkable or very TDS in past, most recent 12/2016 was unremarkable - BNP elevated, however in setting of THERESA, appears euvolemic, no dyspnea -holding torsemide in setting of THERESA, defer diuretics hyperkalemia - manage per primary THERESA - renal consulted elevated LFTs - GI consulted htn: -stable, controlled hld: -cont statin h/o TIA (2003): -on ASA, statin for sec prevention, cont same anemia: -no clear indication for plavix, so stopped now -he is on asa for PAD, can be held temporarily if needed -no cardiac contraindications to egd/foc if needed
--- NOTE | 2018-10-15 11:56 | PN ---
Progress Note, Physician History of Present Illness: PULMONARY ALERT,SITTING UP IN BED,LESS DYSPNEIC - Current Medication List Current Medications: Active Medications Albuterol Sulfate (Ventolin 0.083% Nebulizer Soln -) 1 amp NEB Q6H PRN PRN Reason: SHORT OF BREATH/WHEEZING Last Admin: 10/15/18 07:25 Dose: 1 amp Aspirin (Ecotrin -) 81 mg PO DAILY [facility] Last Admin: 10/15/18 10:06 Dose: 81 mg Budesonide/Formoterol Fumarate (Symbicort 160/4.5mcg -) 2 puff IH BID [facility] Last Admin: 10/15/18 10:09 Dose: 2 puff Emollient Ointment (Aquaphor -) 1 applic TP BID [facility] Last Admin: 10/15/18 10:21 Dose: 1 applic Heparin Sodium (Porcine) (Heparin -) 5,000 unit SQ BID [facility] Last Admin: 10/15/18 10:07 Dose: 5,000 unit Azithromycin (Zithromax 500mg Ivpb (Pre-Docked)) 500 mg in 250 mls @ 250 mls/ hr IVPB DAILY [facility] Last Admin: 10/15/18 10:23 Dose: 250 mls/hr Insulin Aspart (Novolog Vial Sliding Scale -) 1 vial SQ ACHS [facility]; Protocol Last Admin: 10/15/18 06:00 Dose: 4 units Lidocaine (Lidoderm Patch -) 1 patch TP DAILY [facility] Last Admin: 10/15/18 10:06 Dose: 1 patch Methylprednisolone Sodium Succinate (Solu-Medrol -) 20 mg IVPUSH BID [facility] Last Admin: 10/15/18 10:08 Dose: 20 mg Miscellaneous (Lidoderm Patch Removal) 1 each MC DAILY@2200 [facility] Last Admin: 10/14/18 22:38 Dose: 1 each Nystatin (Mycostatin Cream -) 1 applic TP BID [facility] Last Admin: 10/15/18 10:20 Dose: 1 applic Nystatin/Triamcinolone Acetonide (Mycolog Ii Ointment -) 1 applic TP BID [facility] Last Admin: 10/15/18 10:20 Dose: 1 applic Oxycodone HCl (Roxicodone -) 5 mg PO Q6H PRN PRN Reason: PAIN LEVEL 7 - 10 Last Admin: 10/14/18 22:26 Dose: 5 mg Pantoprazole Sodium (Protonix -) 40 mg PO DAILY [facility] Last Admin: 10/15/18 10:07 Dose: 40 mg Polyethylene Glycol (Miralax (For Daily Use) -) 17 gm PO BID [facility] Last Admin: 10/15/18 10:21 Dose: 17 gm Tiotropium [place] (Spiriva Respimat) 2 puff IH DAILY [facility] Last Admin: 10/15/18 10:22 Dose: 2 puff Torsemide (Demadex -) 20 mg PO DAILY [facility] Last Admin: 10/15/18 10:07 Dose: 20 mg - Objective Vital Signs: Vital Signs Temperature 98.0 F 10/15/18 06:00 Pulse Rate 55 L 10/15/18 06:00 Respiratory Rate 18 10/15/18 06:00 Blood Pressure 136/54 L 10/15/18 06:00 O2 Sat by Pulse Oximetry (%) 99 10/14/18 22:47 Constitutional: Yes: Well Nourished, Calm Eyes: Yes: WNL HENT: Yes: WNL Neck: Yes: WNL Cardiovascular: Yes: Regular Rate and Rhythm, S1, S2 Respiratory: Yes: Wheezes (SCATTERED CHHAYA WHEEZES) Gastrointestinal: Yes: Normal Bowel Sounds, Soft Edema: Yes Labs: CBC, BMP 10/14/18 06:30 10/15/18 06:00 INR, PTT INR 1.24 (0.83-1.09) H 10/15/18 06:00 Problem List - Problems (1) Bradycardia Code(s): R00.1 - BRADYCARDIA, UNSPECIFIED (2) Elevated LFTs Code(s): R94.5 - ABNORMAL RESULTS OF LIVER FUNCTION STUDIES (3) MARTIN on CPAP Code(s): G47.33 - OBSTRUCTIVE SLEEP APNEA (ADULT) (PEDIATRIC); Z99.89 - DEPENDENCE ON OTHER ENABLING MACHINES AND DEVICES (4) Acute on chronic respiratory failure with hypoxia and hypercapnia Code(s): J96.21 - ACUTE AND CHRONIC RESPIRATORY FAILURE WITH HYPOXIA; J96.22 - ACUTE AND CHRONIC RESPIRATORY FAILURE WITH HYPERCAPNIA (5) CHF (congestive heart failure) Code(s): I50.9 - HEART FAILURE, UNSPECIFIED (6) CVA (cerebral vascular accident) Code(s): I63.9 - CEREBRAL INFARCTION, UNSPECIFIED (7) Diabetes mellitus Code(s): E11.9 - TYPE 2 DIABETES MELLITUS WITHOUT COMPLICATIONS (8) Hyperkalemia Code(s): E87.5 - HYPERKALEMIA (9) Sleep apnea Code(s): G47.30 - SLEEP APNEA, UNSPECIFIED (10) CAD (coronary artery disease) Code(s): I25.10 - ATHSCL HEART DISEASE OF [place] CORONARY ARTERY W/O ANG PCTRS (11) Leg edema Code(s): R60.0 - LOCALIZED EDEMA (12) Mobitz (type) I (Wenckebach's) atrioventricular block Code(s): I44.1 - ATRIOVENTRICULAR BLOCK, SECOND DEGREE (13) Syzvo-[id number]-akdgkjj kidney injury Code(s): N17.9 - ACUTE KIDNEY FAILURE, UNSPECIFIED; N18.9 - CHRONIC KIDNEY DISEASE, UNSPECIFIED Assessment/Plan IMP ACUTE ON CHRONIC HYPOXEMIC/HYPERCAPNEIC RESPIRATORY FAILURE COPD END STAGE O2 DEPENDENT ACUTE ON CHRONIC KIDNEY INJURY MARTIN BRADYCARDIA HTN H/O CVA TOBACCO ABUSE + TROPONIN ELEVATED LFTS PLAN INHALED BRONCHODILATORS O2 BIPAP AT NIGHT AND PRN MONITOR LYTES,RENAL FUNCTION,LFTS F/U CHEST X-RAYS DR GREEN Problem List - Problems (1) Bradycardia Code(s): R00.1 - BRADYCARDIA, UNSPECIFIED (2) Elevated LFTs Code(s): R94.5 - ABNORMAL RESULTS OF LIVER FUNCTION STUDIES (3) MARTIN on CPAP Code(s): G47.33 - OBSTRUCTIVE SLEEP APNEA (ADULT) (PEDIATRIC); Z99.89 - DEPENDENCE ON OTHER ENABLING MACHINES AND DEVICES (4) Acute on chronic respiratory failure with hypoxia and hypercapnia Code(s): J96.21 - ACUTE AND CHRONIC RESPIRATORY FAILURE WITH HYPOXIA; J96.22 - ACUTE AND CHRONIC RESPIRATORY FAILURE WITH HYPERCAPNIA (5) CHF (congestive heart failure) Code(s): I50.9 - HEART FAILURE, UNSPECIFIED (6) CVA (cerebral vascular accident) Code(s): I63.9 - CEREBRAL INFARCTION, UNSPECIFIED (7) Diabetes mellitus Code(s): E11.9 - TYPE 2 DIABETES MELLITUS WITHOUT COMPLICATIONS (8) Hyperkalemia Code(s): E87.5 - HYPERKALEMIA (9) Sleep apnea Code(s): G47.30 - SLEEP APNEA, UNSPECIFIED (10) CAD (coronary artery disease) Code(s): I25.10 - ATHSCL HEART DISEASE OF [place] CORONARY ARTERY W/O ANG PCTRS (11) Leg edema Code(s): R60.0 - LOCALIZED EDEMA (12) Mobitz (type) I (Wenckebach's) atrioventricular block Code(s): I44.1 - ATRIOVENTRICULAR BLOCK, SECOND DEGREE (13) Jqjwv-oa-vkfbuqw kidney injury Code(s): N17.9 - ACUTE KIDNEY FAILURE, UNSPECIFIED; N18.9 - CHRONIC KIDNEY DISEASE, UNSPECIFIED
--- NOTE | 2018-10-15 17:12 | PN ---
Progress Note (short form) - Note Progress Note: covering dr krishna Problems 68 year old gentleman with hx of CKD, MARTIN, COPD, CVA, DM who was sent to the ED from [place] for hyperkalemia and found to have THERESA/acute liver injury. THERESA on CKD likely due to intravascular volume depletion Abnormal LFT's/Acute liver injury Chronic LE edema Anemia Current Medications Albuterol Sulfate (Ventolin 0.083% Nebulizer Soln -) 1 amp NEB Q6H PRN PRN Reason: SHORT OF BREATH/WHEEZING Last Admin: 10/15/18 07:25 Dose: 1 amp Aspirin (Ecotrin -) 81 mg PO DAILY [facility] Last Admin: 10/15/18 10:06 Dose: 81 mg Budesonide/Formoterol Fumarate (Symbicort 160/4.5mcg -) 2 puff IH BID [facility] Last Admin: 10/15/18 10:09 Dose: 2 puff Emollient Ointment (Aquaphor -) 1 applic TP BID [facility] Last Admin: 10/15/18 10:21 Dose: 1 applic Heparin Sodium (Porcine) (Heparin -) 5,000 unit SQ BID [facility] Last Admin: 10/15/18 10:07 Dose: 5,000 unit Azithromycin (Zithromax 500mg Ivpb (Pre-Docked)) 500 mg in 250 mls @ 250 mls/ hr IVPB DAILY [facility] Last Admin: 10/15/18 10:23 Dose: 250 mls/hr Insulin Aspart (Novolog Vial Sliding Scale -) 1 vial SQ ACHS [facility]; Protocol Last Admin: 10/15/18 12:06 Dose: 6 units Lidocaine (Lidoderm Patch -) 1 patch TP DAILY [facility] Last Admin: 10/15/18 10:06 Dose: 1 patch Methylprednisolone Sodium Succinate (Solu-Medrol -) 20 mg IVPUSH BID [facility] Last Admin: 10/15/18 10:08 Dose: 20 mg Miscellaneous (Lidoderm Patch Removal) 1 each MC DAILY@2200 [facility] Last Admin: 10/14/18 22:38 Dose: 1 each Nystatin (Mycostatin Cream -) 1 applic TP BID [facility] Last Admin: 10/15/18 10:20 Dose: 1 applic Nystatin/Triamcinolone Acetonide (Mycolog Ii Ointment -) 1 applic TP BID [facility] Last Admin: 10/15/18 10:20 Dose: 1 applic Oxycodone HCl (Roxicodone -) 5 mg PO Q6H PRN PRN Reason: PAIN LEVEL 7 - 10 Last Admin: 10/14/18 22:26 Dose: 5 mg Pantoprazole Sodium (Protonix -) 40 mg PO DAILY [facility] Last Admin: 10/15/18 10:07 Dose: 40 mg Polyethylene Glycol (Miralax (For Daily Use) -) 17 gm PO BID [facility] Last Admin: 10/15/18 10:21 Dose: 17 gm Tiotropium [place] (Spiriva Respimat) 2 puff IH DAILY [facility] Last Admin: 10/15/18 10:22 Dose: 2 puff Torsemide (Demadex -) 20 mg PO DAILY [facility] Last Admin: 10/15/18 10:07 Dose: 20 mg Last Vital Signs Temp Pulse Resp BP Pulse Ox 97.7 F 50 L 18 143/68 94 L 10/15/18 14:00 10/15/18 14:00 10/15/18 14:00 10/15/18 14:00 10/15/18 09:00 Lungs clear Heart reg Abd soft Ext lower ext chronic edema CBC, BMP 10/15/18 06:00 10/12/18 10/15/18 06:15 06:00 Sodium 141 139 Potassium 4.9 4.9 BUN 31 H 42 H Creatinine 1.2 1.4 H Albumin 2.6 L CBC, BMP 10/12/18 06:15 10/13/18 06:30 IMP- THERESA on ckd anemia dm COPD END STAGE O2 DEPENDENT MARTIN BRADYCARDIA HTN H/O CVA TOBACCO ABUSE + TROPONIN ELEVATED LFTS Plan encourage fluids ensure hydration
--- NOTE | 2018-10-15 17:45 | PN ---
GI Progress Note Subjective: GI NOte; Never heard from Calixto's or daughter in law. He is now consenting to EGD and colonoscopy. The only opportunity that I have this is week is 10/17 which would means doing the bowel prep tomorrow. He replied that he is expecting to have crab legs for his [place] meal and does not want to given this up. - Objective Vital Signs: Vital Signs Temperature 97.7 F 10/15/18 14:00 Pulse Rate 50 L 10/15/18 14:00 Respiratory Rate 18 10/15/18 14:00 Blood Pressure 143/68 10/15/18 14:00 O2 Sat by Pulse Oximetry (%) 94 L 10/15/18 09:00 Laboratory Tests 10/09/18 10/10/18 10/11/18 22:20 06:00 06:00 Hgb 8.4 L 8.8 L Ferritin 641.0 H 10/12/18 10/14/18 06:15 06:30 Hgb 8.1 L 8.8 L Ferritin Constitutional: Calm ...Auscultate: Yes: Normoactive Bowel Sounds ...Palpate: Yes: Soft, Other Labs: CBC, BMP 10/14/18 06:30 10/15/18 06:00 INR, PTT INR 1.24 (0.83-1.09) H 10/15/18 06:00 Assessment/Plan Microcytic anemia and reports of rectal bleeding mandate panendoscopy If cleared by pulmonary and cardiology will schedule at next opportunity Please call us when cleared Problem List - Problems (1) Microcytic anemia Code(s): D50.9 - IRON DEFICIENCY ANEMIA, UNSPECIFIED (2) Elevated LFTs Code(s): R94.5 - ABNORMAL RESULTS OF LIVER FUNCTION STUDIES (3) Acute on chronic respiratory failure with hypoxia and hypercapnia Code(s): J96.21 - ACUTE AND CHRONIC RESPIRATORY FAILURE WITH HYPOXIA; J96.22 - ACUTE AND CHRONIC RESPIRATORY FAILURE WITH HYPERCAPNIA (4) COPD (chronic obstructive pulmonary disease) Code(s): J44.9 - CHRONIC OBSTRUCTIVE PULMONARY DISEASE, UNSPECIFIED Qualifiers: COPD type: unspecified COPD Qualified Code(s): J44.9 - Chronic obstructive pulmonary disease, unspecified (5) Diabetes mellitus Code(s): E11.9 - TYPE 2 DIABETES MELLITUS WITHOUT COMPLICATIONS (6) Sepsis Code(s): A41.9 - SEPSIS, UNSPECIFIED ORGANISM (7) Sleep apnea Code(s): G47.30 - SLEEP APNEA, UNSPECIFIED (8) Morbid obesity Code(s): E66.01 - MORBID (SEVERE) OBESITY DUE TO EXCESS CALORIES (9) Fatty liver Code(s): K76.0 - FATTY (CHANGE OF) LIVER, NOT ELSEWHERE CLASSIFIED (10) Gallbladder calculus Code(s): K80.20 - CALCULUS OF GALLBLADDER W/O CHOLECYSTITIS W/O OBSTRUCTION
[2018-10-15] MEDS: oxyCODONE HCL 5 MG TABLET PO PRN (21:12)
[2018-10-15] MEDS: LIDOCAINE PATCH REMOVAL MC SCH (21:14)
[2018-10-16] MEDS: INSULIN SLIDING SCALE (NOVOLOG) 1 VIAL SQ SCH ×4 (06:11→22:03)
[2018-10-16 08:12] LABS: BASO % 0.2 % (0-2.0); EOS % 0.1 % (0-4.5); HEMATOCRIT 29.6 % (35.4-49); HEMOGLOBIN 9.3 GM/dL (11.7-16.9); LYMPH % 4.7 % (8-40); MCH 24.6 pg (25.7-33.7); MCHC 31.3 g/dl (32.0-35.9); MEAN CELL VOLUME 78.7 fl (80-96); MEAN PLT VOLUME 8.1 fl (7.5-11.1); MONO % 3.6 % (3.8-10.2); NEUT % 91.4 % (42.8-82.8); PLATELET COUNT 247 K/MM3 (134-434); RBC 3.76 M/mm3 (4.00-5.60); RDW 18.6 % (11.9-15.9); WHITE BLOOD COUNT 8.7 K/mm3 (4.0-10.0)
[2018-10-16 08:47] LABS: ALBUMIN 2.8 g/dl (3.4-5.0); ALK PHOS 82 U/L (45-117); ANION GAP 7 MMOL/L (8-16); BILIRUBIN,TOTAL 0.5 mg/dL (0.2-1); BLOOD UREA NITROGEN 38 mg/dL (7-18); CALCIUM 8.3 mg/dL (8.5-10.1); CHLORIDE 94 mmol/L (98-107); CO2 40 mmol/L (21-32); CREATININE 1.4 mg/dL (0.55-1.3); GLUCOSE,RANDOM 190 mg/dL (74-106); SGOT/AST 14 U/L (15-37); SGPT/ALT 96 U/L (13-61); SODIUM 141 mmol/L (136-145); TOT PROT 6.3 g/dl (6.4-8.2)
[2018-10-16] MEDS ORDERED: PT OWN MED DRAWER 7, Y5N ONE ×3 (10:09→21:52)
--- NOTE | 2018-10-16 10:15 | PN ---
Progress Note, Physician Chief Complaint: pt spoke with GI about procedures, he agreed for EGD colonoscopy but he does not want to give up his [place] meals for today so he can not do prep for tomorrow, tentatively EGD colon for 10/04 if cleared by cardio and pulm - Current Medication List Current Medications: Active Medications Albuterol Sulfate (Ventolin 0.083% Nebulizer Soln -) 1 amp NEB Q6H PRN PRN Reason: SHORT OF BREATH/WHEEZING Last Admin: 10/15/18 22:01 Dose: 1 amp Aspirin (Ecotrin -) 81 mg PO DAILY [facility] Last Admin: 10/15/18 10:06 Dose: 81 mg Budesonide/Formoterol Fumarate (Symbicort 160/4.5mcg -) 2 puff IH BID [facility] Last Admin: 10/15/18 21:12 Dose: 2 puff Emollient Ointment (Aquaphor -) 1 applic TP BID [facility] Last Admin: 10/15/18 21:15 Dose: 1 applic Heparin Sodium (Porcine) (Heparin -) 5,000 unit SQ BID [facility] Last Admin: 10/15/18 21:11 Dose: 5,000 unit Azithromycin (Zithromax 500mg Ivpb (Pre-Docked)) 500 mg in 250 mls @ 250 mls/ hr IVPB DAILY [facility] Last Admin: 10/15/18 10:23 Dose: 250 mls/hr Insulin Aspart (Novolog Vial Sliding Scale -) 1 vial SQ ACHS [facility]; Protocol Last Admin: 10/16/18 06:11 Dose: 4 units Lidocaine (Lidoderm Patch -) 1 patch TP DAILY [facility] Last Admin: 10/15/18 10:06 Dose: 1 patch Methylprednisolone Sodium Succinate (Solu-Medrol -) 20 mg IVPUSH BID [facility] Last Admin: 10/15/18 21:10 Dose: 20 mg Miscellaneous (Lidoderm Patch Removal) 1 each MC DAILY@2200 [facility] Last Admin: 10/15/18 21:14 Dose: 1 each Nystatin (Mycostatin Cream -) 1 applic TP BID [facility] Last Admin: 10/15/18 21:14 Dose: 1 applic Nystatin/Triamcinolone Acetonide (Mycolog Ii Ointment -) 1 applic TP BID [facility] Last Admin: 10/15/18 21:14 Dose: 1 applic Oxycodone HCl (Roxicodone -) 5 mg PO Q6H PRN PRN Reason: PAIN LEVEL 7 - 10 Last Admin: 10/15/18 21:12 Dose: 5 mg Pantoprazole Sodium (Protonix -) 40 mg PO DAILY [facility] Last Admin: 10/15/18 10:07 Dose: 40 mg Polyethylene Glycol (Miralax (For Daily Use) -) 17 gm PO BID [facility] Last Admin: 10/15/18 21:14 Dose: 17 gm Tiotropium [place] (Spiriva Respimat) 2 puff IH DAILY [facility] Last Admin: 10/15/18 10:22 Dose: 2 puff Torsemide (Demadex -) 20 mg PO DAILY [facility] Last Admin: 10/15/18 10:07 Dose: 20 mg - Objective Vital Signs: Vital Signs Temperature 98.6 F 10/16/18 06:49 Pulse Rate 62 10/16/18 06:49 Respiratory Rate 20 10/16/18 06:49 Blood Pressure 148/82 10/16/18 06:49 O2 Sat by Pulse Oximetry (%) 96 10/15/18 22:15 Constitutional: Yes: No Distress, Calm Eyes: Yes: Conjunctiva Clear HENT: Yes: Atraumatic Neck: Yes: Supple Cardiovascular: Yes: Regular Rate and Rhythm Respiratory: Yes: CTA Bilaterally Gastrointestinal: Yes: Soft. No: Distention Genitourinary: No: CVA Tenderness - Left, CVA Tenderness - Right Musculoskeletal: No: Joint Stiffness, Joint Swelling Extremities: No: Cold, Cool Edema: No (chronic venous stasis ) Integumentary: Yes: Venous Stasis Changes Neurological: Yes: WNL, Alert, Oriented ...Motor Strength: WNL Psychiatric: Yes: WNL, Alert, Oriented. No: Agitated, Suicidal Ideation Labs: CBC, BMP 10/16/18 07:45 10/16/18 07:45 INR, PTT INR 1.24 (0.83-1.09) H 10/15/18 06:00 - ....Imaging Other: Report Reviewed Assessment/Plan ASHD PVD DM OA DJD CRF legs cellulitis and chronic venous insufficiency admitted with ARF/CRF dehydration, high LFTs, one episode of BRBPR and anemia, + troponin, s/p PNA COPD/CHF exac taper iv steroids, nebs O2, Bipap, nebs, O2 seen by GI, renal and cardiology; will need anemia w/u EGD Colonoscopy and heme f/u - needs cardiac and pulmonary clearance continue meds; f/u labs falls PFX, DVT, decubs PFX legs wounds care f/u labs, cx d/w pt and staff
[2018-10-16] MEDS: BUDESONIDE/FORMETEROL FUMARATE 160/4.5 mcg INHALER IH SCH ×2 (10:17→22:02)
[2018-10-16] MEDS: TIOTROPIUM BROMIDE 2.5 MCG (SPIRIVA) RESPIMAT INHALER IH SCH (10:17)
[2018-10-16] MEDS: methylPREDNISolone NA SUCC 40 MG/1 ML VIAL IVPUSH SCH ×2 (10:17→22:02)
[2018-10-16] MEDS: TORSEMIDE 20 MG TABLET (FP) PO SCH (10:18)
[2018-10-16] MEDS: ASPIRIN COATED 81 MG TABLET.EC PO SCH (10:18)
[2018-10-16] MEDS: PANTOPRAZOLE 20 MG TABLET (FP) PO SCH (10:18)
[2018-10-16] MEDS: AZITHROMYCIN IVPB 500 MG/250 ML BAG IVPB SCH (10:18)
[2018-10-16] MEDS: HEPARIN NA (PORCINE) 5,000 UNITS/ML 1ML VIAL SQ SCH ×2 (10:19→22:02)
[2018-10-16] MEDS: LIDOCAINE 5% TOPICAL PATCH TP SCH (10:19)
[2018-10-16] MEDS: NYSTATIN 100,000 UNIT/GM TOPICAL CREAM 15 GM TUBE TP SCH ×2 (10:19→22:04)
[2018-10-16] MEDS: NYSTATIN/TRIAMCINOLONE TOPICAL OINTMENT 15 GM TUBE TP SCH ×2 (10:19→22:04)
[2018-10-16] MEDS: MINERAL OIL/PET HY-PHL TOPICAL OINTMENT 454 GM JAR TP SCH ×2 (10:20→22:03)
[2018-10-16] MEDS: POLYETHYLENE GLYCOL 3350 119 GM BTL PO SCH ×2 (10:20→22:04)
--- NOTE | 2018-10-16 10:28 | PN ---
Progress Note (short form) - Note Progress Note: - Note Progress Note: s: no cp sob palps dizzy o: Vital Signs Period Temp Pulse Resp BP Sys/Mullen Pulse Ox Last 24 Hr 97.7 F-98.6 F 50-65 18-20 142-154/68-91 94-96 Constitutional: Yes: No Distress, Calm Eyes: Yes: Conjunctiva Clear, Neck: Yes: Supple, Trachea Midline Respiratory: Yes: cta bl nl eff Gastrointestinal: Yes: Normal Bowel Sounds, Soft Cardiovascular: Yes: Regular Rate and Rhythm JVD: No Carotid Bruit: No Heart Sounds: Yes: S1, S2 Extremities: Yes: Erythema, Other (erythema bilateral feet and ankles with weeping from wounds) Edema: trace/1+ le edema bl Peripheral Pulses: 1+ Left Doralis Pedis, 1+ Right Dorsalis Pedis Integumentary: no jaundice diaphoresis [id number] Current Medications Albuterol Sulfate (Ventolin 0.083% Nebulizer Soln -) 1 amp NEB Q6H PRN PRN Reason: SHORT OF BREATH/WHEEZING Last Admin: 10/15/18 22:01 Dose: 1 amp Aspirin (Ecotrin -) 81 mg PO DAILY [facility] Last Admin: 10/16/18 10:18 Dose: 81 mg Budesonide/Formoterol Fumarate (Symbicort 160/4.5mcg -) 2 puff IH BID [facility] Last Admin: 10/16/18 10:17 Dose: 2 puff Emollient Ointment (Aquaphor -) 1 applic TP BID [facility] Last Admin: 10/16/18 10:20 Dose: 1 applic Heparin Sodium (Porcine) (Heparin -) 5,000 unit SQ BID [facility] Last Admin: 10/16/18 10:19 Dose: 5,000 unit Azithromycin (Zithromax 500mg Ivpb (Pre-Docked)) 500 mg in 250 mls @ 250 mls/ hr IVPB DAILY [facility] Last Admin: 10/16/18 10:18 Dose: 250 mls/hr Insulin Aspart (Novolog Vial Sliding Scale -) 1 vial SQ ACHS [facility]; Protocol Last Admin: 10/16/18 06:11 Dose: 4 units Lidocaine (Lidoderm Patch -) 1 patch TP DAILY [facility] Last Admin: 10/16/18 10:19 Dose: 1 patch Methylprednisolone Sodium Succinate (Solu-Medrol -) 20 mg IVPUSH BID [facility] Last Admin: 10/16/18 10:17 Dose: 20 mg Miscellaneous (Lidoderm Patch Removal) 1 each MC DAILY@2200 [facility] Last Admin: 10/15/18 21:14 Dose: 1 each Nystatin (Mycostatin Cream -) 1 applic TP BID [facility] Last Admin: 10/16/18 10:19 Dose: 1 applic Nystatin/Triamcinolone Acetonide (Mycolog Ii Ointment -) 1 applic TP BID [facility] Last Admin: 10/16/18 10:19 Dose: 1 applic Oxycodone HCl (Roxicodone -) 5 mg PO Q6H PRN PRN Reason: PAIN LEVEL 7 - 10 Last Admin: 10/15/18 21:12 Dose: 5 mg Pantoprazole Sodium (Protonix -) 40 mg PO DAILY [facility] Last Admin: 10/16/18 10:18 Dose: 40 mg Polyethylene Glycol (Miralax (For Daily Use) -) 17 gm PO BID [facility] Last Admin: 10/16/18 10:20 Dose: 17 gm Tiotropium [place] (Spiriva Respimat) 2 puff IH DAILY [facility] Last Admin: 10/16/18 10:17 Dose: 2 puff Torsemide (Demadex -) 20 mg PO DAILY [facility] Last Admin: 10/16/18 10:18 Dose: 20 mg echo 12/2016: nl lv/rv, mild lae, mild mr, mild-mod tr, possible mild as, mild phtn exercise mibi 01/02: no ischemia at 80% mphr EKG: sinus, LBBB, mobitz 1 (similar to prior EKGs) tele: sinus, LBBB, mobitz I a/p: 68M h/o CVA, HTN, HLD, COPD (on 3L O2), CKD, DM, TIA, chronic diastolic hf /venous insufficiency, 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 bradycardia, Abnormal EKG, mobitz 1, LBBB: - chronic findings, has had prior event monitors in clinic showing mobitz 1 without significant pauses - bradycardia likely in setting of hyperkalemia, appears to have improved with correction of K - avoid AV arsh blocking agents elevated trop - borderline trop level with flat trend in setting of THERESA - no chest pain - not c/w acs COPD - seems stable presently chronic venous insuff/LE edema, recurrent cellulitis: - manage per primary PAD: -prior h/o left fem-pop bypass, cont asa, statin. no clear indication for plavix, stopped now, especially in setting of anemia. chronic diastolic CHF -echoes have been unremarkable or very TDS in past, most recent 12/2016 was unremarkable - BNP elevated, however in setting of THERESA, appears euvolemic, no dyspnea - continue home torsemide 20 mg daily, euvolemic hyperkalemia - manage per primary THERESA - renal consulted elevated LFTs - GI consulted htn: -stable, controlled hld: -cont statin h/o TIA (2003): -on ASA, statin for sec prevention, cont same anemia, preop -no clear indication for plavix, dc'ed -he is on asa for PAD, can be held temporarily if needed -no cardiac contraindications to egd/colonoscopy
--- NOTE | 2018-10-16 11:20 | PN ---
Progress Note, Physician History of Present Illness: PULMONARY ALERT,NO DISTRESS,-SOB -CP,-COUGH - Current Medication List Current Medications: Active Medications Albuterol Sulfate (Ventolin 0.083% Nebulizer Soln -) 1 amp NEB Q6H PRN PRN Reason: SHORT OF BREATH/WHEEZING Last Admin: 10/15/18 22:01 Dose: 1 amp Aspirin (Ecotrin -) 81 mg PO DAILY [facility] Last Admin: 10/16/18 10:18 Dose: 81 mg Budesonide/Formoterol Fumarate (Symbicort 160/4.5mcg -) 2 puff IH BID [facility] Last Admin: 10/16/18 10:17 Dose: 2 puff Emollient Ointment (Aquaphor -) 1 applic TP BID [facility] Last Admin: 10/16/18 10:20 Dose: 1 applic Heparin Sodium (Porcine) (Heparin -) 5,000 unit SQ BID [facility] Last Admin: 10/16/18 10:19 Dose: 5,000 unit Azithromycin (Zithromax 500mg Ivpb (Pre-Docked)) 500 mg in 250 mls @ 250 mls/ hr IVPB DAILY [facility] Last Admin: 10/16/18 10:18 Dose: 250 mls/hr Insulin Aspart (Novolog Vial Sliding Scale -) 1 vial SQ ACHS [facility]; Protocol Last Admin: 10/16/18 06:11 Dose: 4 units Lidocaine (Lidoderm Patch -) 1 patch TP DAILY [facility] Last Admin: 10/16/18 10:19 Dose: 1 patch Methylprednisolone Sodium Succinate (Solu-Medrol -) 20 mg IVPUSH BID [facility] Last Admin: 10/16/18 10:17 Dose: 20 mg Miscellaneous (Lidoderm Patch Removal) 1 each MC DAILY@2200 [facility] Last Admin: 10/15/18 21:14 Dose: 1 each Nystatin (Mycostatin Cream -) 1 applic TP BID [facility] Last Admin: 10/16/18 10:19 Dose: 1 applic Nystatin/Triamcinolone Acetonide (Mycolog Ii Ointment -) 1 applic TP BID [facility] Last Admin: 10/16/18 10:19 Dose: 1 applic Oxycodone HCl (Roxicodone -) 5 mg PO Q6H PRN PRN Reason: PAIN LEVEL 7 - 10 Last Admin: 10/15/18 21:12 Dose: 5 mg Pantoprazole Sodium (Protonix -) 40 mg PO DAILY [facility] Last Admin: 10/16/18 10:18 Dose: 40 mg Polyethylene Glycol (Miralax (For Daily Use) -) 17 gm PO BID [facility] Last Admin: 10/16/18 10:20 Dose: 17 gm Tiotropium [place] (Spiriva Respimat) 2 puff IH DAILY [facility] Last Admin: 10/16/18 10:17 Dose: 2 puff Torsemide (Demadex -) 20 mg PO DAILY [facility] Last Admin: 10/16/18 10:18 Dose: 20 mg - Objective Vital Signs: Vital Signs Temperature 98.6 F 10/16/18 06:49 Pulse Rate 62 10/16/18 06:49 Respiratory Rate 20 10/16/18 06:49 Blood Pressure 148/82 10/16/18 06:49 O2 Sat by Pulse Oximetry (%) 96 10/15/18 22:15 Constitutional: Yes: Well Nourished, Calm Eyes: Yes: WNL HENT: Yes: WNL, Tonsillar Exudate Cardiovascular: Yes: Regular Rate and Rhythm, S1, S2 Respiratory: Yes: Diminished Gastrointestinal: Yes: Normal Bowel Sounds, Soft Extremities: Yes: Other (WRAPPED) Edema: Yes Labs: CBC, BMP 10/16/18 07:45 10/16/18 07:45 INR, PTT INR 1.24 (0.83-1.09) H 10/15/18 06:00 Problem List - Problems (1) Bradycardia Code(s): R00.1 - BRADYCARDIA, UNSPECIFIED (2) Elevated LFTs Code(s): R94.5 - ABNORMAL RESULTS OF LIVER FUNCTION STUDIES (3) MARTIN on CPAP Code(s): G47.33 - OBSTRUCTIVE SLEEP APNEA (ADULT) (PEDIATRIC); Z99.89 - DEPENDENCE ON OTHER ENABLING MACHINES AND DEVICES (4) Acute on chronic respiratory failure with hypoxia and hypercapnia Code(s): J96.21 - ACUTE AND CHRONIC RESPIRATORY FAILURE WITH HYPOXIA; J96.22 - ACUTE AND CHRONIC RESPIRATORY FAILURE WITH HYPERCAPNIA (5) CHF (congestive heart failure) Code(s): I50.9 - HEART FAILURE, UNSPECIFIED (6) CVA (cerebral vascular accident) Code(s): I63.9 - CEREBRAL INFARCTION, UNSPECIFIED (7) Diabetes mellitus Code(s): E11.9 - TYPE 2 DIABETES MELLITUS WITHOUT COMPLICATIONS (8) Hyperkalemia Code(s): E87.5 - HYPERKALEMIA (9) Sleep apnea Code(s): G47.30 - SLEEP APNEA, UNSPECIFIED (10) CAD (coronary artery disease) Code(s): I25.10 - ATHSCL HEART DISEASE OF [place] CORONARY ARTERY W/O ANG PCTRS (11) Leg edema Code(s): R60.0 - LOCALIZED EDEMA (12) Mobitz (type) I (Wenckebach's) atrioventricular block Code(s): I44.1 - ATRIOVENTRICULAR BLOCK, SECOND DEGREE (13) Ufugi-uu-zowihsw kidney injury Code(s): N17.9 - ACUTE KIDNEY FAILURE, UNSPECIFIED; N18.9 - CHRONIC KIDNEY DISEASE, UNSPECIFIED Assessment/Plan IMP ACUTE ON CHRONIC HYPOXEMIC/HYPERCAPNEIC RESPIRATORY FAILURE COPD END STAGE O2 DEPENDENT ACUTE ON CHRONIC KIDNEY INJURY MARTIN BRADYCARDIA HTN H/O CVA TOBACCO ABUSE + TROPONIN ELEVATED LFTS PLAN INHALED BRONCHODILATORS O2 BIPAP AT NIGHT AND PRN MONITOR LYTES,RENAL FUNCTION,LFTS F/U CHEST X-RAYS ABG NO ABSOLUTE PULMONARY CONTRAINDICATIONS FOR COLONOSCOPY DR GREEN Problem List - Problems (1) Bradycardia Code(s): R00.1 - BRADYCARDIA, UNSPECIFIED (2) Elevated LFTs Code(s): R94.5 - ABNORMAL RESULTS OF LIVER FUNCTION STUDIES (3) MARTIN on CPAP Code(s): G47.33 - OBSTRUCTIVE SLEEP APNEA (ADULT) (PEDIATRIC); Z99.89 - DEPENDENCE ON OTHER ENABLING MACHINES AND DEVICES (4) Acute on chronic respiratory failure with hypoxia and hypercapnia Code(s): J96.21 - ACUTE AND CHRONIC RESPIRATORY FAILURE WITH HYPOXIA; J96.22 - ACUTE AND CHRONIC RESPIRATORY FAILURE WITH HYPERCAPNIA (5) CHF (congestive heart failure) Code(s): I50.9 - HEART FAILURE, UNSPECIFIED (6) CVA (cerebral vascular accident) Code(s): I63.9 - CEREBRAL INFARCTION, UNSPECIFIED (7) Diabetes mellitus Code(s): E11.9 - TYPE 2 DIABETES MELLITUS WITHOUT COMPLICATIONS (8) Hyperkalemia Code(s): E87.5 - HYPERKALEMIA (9) Sleep apnea Code(s): G47.30 - SLEEP APNEA, UNSPECIFIED (10) CAD (coronary artery disease) Code(s): I25.10 - ATHSCL HEART DISEASE OF [place] CORONARY ARTERY W/O ANG PCTRS (11) Leg edema Code(s): R60.0 - LOCALIZED EDEMA (12) Mobitz (type) I (Wenckebach's) atrioventricular block Code(s): I44.1 - ATRIOVENTRICULAR BLOCK, SECOND DEGREE (13) Nebbw-kw-kdfvyga kidney injury Code(s): N17.9 - ACUTE KIDNEY FAILURE, UNSPECIFIED; N18.9 - CHRONIC KIDNEY DISEASE, UNSPECIFIED
[2018-10-16 11:24] LABS: ANISOCYTOSIS 1+; MACROCYTOSIS 0; PLATELET ESTIMATE NORMAL
[2018-10-16 15:24] LABS: ARTERIAL BLD GAS O2 SATURATION 94.5 % (90-98.9); ARTERIAL BLOOD GAS BASE EXCESS 13.3 meq/l (-2-2); ARTERIAL BLOOD GAS PO2 71.7 mmHg (80-100); ARTERIAL BLOOD GAS pH 7.46 (7.35-7.45)
[2018-10-16 15:26] LABS: ALLENS TEST POSITIVE
--- NOTE | 2018-10-16 17:16 | PN ---
Progress Note (short form) - Note Progress Note: covering dr krishna Problems CKD, MARTIN, COPD, CVA, DM sent to the ED from [place] for hyperkalemia and found to have THERESA/acute liver injury. THERESA on CKD likely due to intravascular volume depletion Abnormal LFT's/Acute liver injury Chronic LE edema Anemia Current Medications Albuterol Sulfate (Ventolin 0.083% Nebulizer Soln -) 1 amp NEB Q6H PRN PRN Reason: SHORT OF BREATH/WHEEZING Last Admin: 10/15/18 22:01 Dose: 1 amp Aspirin (Ecotrin -) 81 mg PO DAILY [facility] Last Admin: 10/16/18 10:18 Dose: 81 mg Budesonide/Formoterol Fumarate (Symbicort 160/4.5mcg -) 2 puff IH BID [facility] Last Admin: 10/16/18 10:17 Dose: 2 puff Emollient Ointment (Aquaphor -) 1 applic TP BID [facility] Last Admin: 10/16/18 10:20 Dose: 1 applic Heparin Sodium (Porcine) (Heparin -) 5,000 unit SQ BID [facility] Last Admin: 10/16/18 10:19 Dose: 5,000 unit Azithromycin (Zithromax 500mg Ivpb (Pre-Docked)) 500 mg in 250 mls @ 250 mls/ hr IVPB DAILY [facility] Last Admin: 10/16/18 10:18 Dose: 250 mls/hr Insulin Aspart (Novolog Vial Sliding Scale -) 1 vial SQ ACHS [facility]; Protocol Last Admin: 10/16/18 12:10 Dose: 6 units Lidocaine (Lidoderm Patch -) 1 patch TP DAILY [facility] Last Admin: 10/16/18 10:19 Dose: 1 patch Methylprednisolone Sodium Succinate (Solu-Medrol -) 20 mg IVPUSH BID [facility] Last Admin: 10/16/18 10:17 Dose: 20 mg Miscellaneous (Lidoderm Patch Removal) 1 each MC DAILY@2200 [facility] Last Admin: 10/15/18 21:14 Dose: 1 each Nystatin (Mycostatin Cream -) 1 applic TP BID [facility] Last Admin: 10/16/18 10:19 Dose: 1 applic Nystatin/Triamcinolone Acetonide (Mycolog Ii Ointment -) 1 applic TP BID [facility] Last Admin: 10/16/18 10:19 Dose: 1 applic Oxycodone HCl (Roxicodone -) 5 mg PO Q6H PRN PRN Reason: PAIN LEVEL 7 - 10 Last Admin: 10/15/18 21:12 Dose: 5 mg Pantoprazole Sodium (Protonix -) 40 mg PO DAILY [facility] Last Admin: 10/16/18 10:18 Dose: 40 mg Polyethylene Glycol (Miralax (For Daily Use) -) 17 gm PO BID [facility] Last Admin: 10/16/18 10:20 Dose: 17 gm Tiotropium [place] (Spiriva Respimat) 2 puff IH DAILY [facility] Last Admin: 10/16/18 10:17 Dose: 2 puff Torsemide (Demadex -) 20 mg PO DAILY [facility] Last Admin: 10/16/18 10:18 Dose: 20 mg Last Vital Signs Temp Pulse Resp BP Pulse Ox 98.4 F 60 18 141/75 94 L 10/16/18 14:15 10/16/18 14:15 10/16/18 14:15 10/16/18 14:15 10/16/18 09:00 cognitive impaired, hollering Lungs clear Heart reg Abd soft Ext lower ext chronic edema CBC, BMP 10/16/18 07:45 10/16/18 07:45 CBC, BMP 10/15/18 06:00 IMP- THERESA on ckd anemia dm COPD END STAGE O2 DEPENDENT MARTIN BRADYCARDIA HTN H/O CVA TOBACCO ABUSE + TROPONIN ELEVATED LFTS Plan encourage fluids ensure hydration
[2018-10-16] MEDS: LIDOCAINE PATCH REMOVAL MC SCH (22:18)
[2018-10-17] MEDS: ALBUTEROL SO4 0.083% IH SOL 2.5 MG/3 ML VIAL.NEB. NEB PRN (00:26)
[2018-10-17] MEDS: INSULIN SLIDING SCALE (NOVOLOG) 1 VIAL SQ SCH ×4 (06:30→21:27)
--- NOTE | 2018-10-17 09:55 | PN ---
Progress Note (short form) - Note Progress Note: - Note Progress Note: s: no cp sob palps dizzy o: Vital Signs Period Temp Pulse Resp BP Sys/Mullen Pulse Ox Last 24 Hr 97.6 F-98.4 F 60-70 18-20 141-174/75-93 93-98 Constitutional: Yes: No Distress, Calm Eyes: Yes: Conjunctiva Clear, Neck: Yes: Supple, Trachea Midline Respiratory: Yes: cta bl nl eff Gastrointestinal: Yes: Normal Bowel Sounds, Soft Cardiovascular: Yes: Regular Rate and Rhythm JVD: No Carotid Bruit: No Heart Sounds: Yes: S1, S2 Extremities: Yes: Erythema, Other (erythema bilateral feet and ankles with weeping from wounds) Edema: trace/1+ le edema bl Peripheral Pulses: 1+ Left Doralis Pedis, 1+ Right Dorsalis Pedis Integumentary: no jaundice diaphoresis aaox3 Current Medications Albuterol Sulfate (Ventolin 0.083% Nebulizer Soln -) 1 amp NEB Q6H PRN PRN Reason: SHORT OF BREATH/WHEEZING Last Admin: 10/17/18 00:26 Dose: 1 amp Aspirin (Ecotrin -) 81 mg PO DAILY [facility] Last Admin: 10/16/18 10:18 Dose: 81 mg Budesonide/Formoterol Fumarate (Symbicort 160/4.5mcg -) 2 puff IH BID [facility] Last Admin: 10/16/18 22:02 Dose: 2 puff Emollient Ointment (Aquaphor -) 1 applic TP BID [facility] Last Admin: 10/16/18 22:03 Dose: 1 applic Heparin Sodium (Porcine) (Heparin -) 5,000 unit SQ BID [facility] Last Admin: 10/16/18 22:02 Dose: 5,000 unit Azithromycin (Zithromax 500mg Ivpb (Pre-Docked)) 500 mg in 250 mls @ 250 mls/ hr IVPB DAILY [facility] Last Admin: 10/16/18 10:18 Dose: 250 mls/hr Insulin Aspart (Novolog Vial Sliding Scale -) 1 vial SQ ACHS [facility]; Protocol Last Admin: 10/17/18 06:30 Dose: 4 units Lidocaine (Lidoderm Patch -) 1 patch TP DAILY [facility] Last Admin: 10/16/18 10:19 Dose: 1 patch Methylprednisolone Sodium Succinate (Solu-Medrol -) 20 mg IVPUSH BID [facility] Last Admin: 10/16/18 22:02 Dose: 20 mg Miscellaneous (Lidoderm Patch Removal) 1 each MC DAILY@2200 [facility] Last Admin: 10/16/18 22:18 Dose: 1 each Nystatin (Mycostatin Cream -) 1 applic TP BID [facility] Last Admin: 10/16/18 22:04 Dose: 1 applic Nystatin/Triamcinolone Acetonide (Mycolog Ii Ointment -) 1 applic TP BID [facility] Last Admin: 10/16/18 22:04 Dose: 1 applic Oxycodone HCl (Roxicodone -) 5 mg PO Q6H PRN PRN Reason: PAIN LEVEL 7 - 10 Last Admin: 10/15/18 21:12 Dose: 5 mg Pantoprazole Sodium (Protonix -) 40 mg PO DAILY [facility] Last Admin: 10/16/18 10:18 Dose: 40 mg Polyethylene Glycol (Miralax (For Daily Use) -) 17 gm PO BID [facility] Last Admin: 10/16/18 22:04 Dose: Not Given Tiotropium [place] (Spiriva Respimat) 2 puff IH DAILY [facility] Last Admin: 10/16/18 10:17 Dose: 2 puff Torsemide (Demadex -) 20 mg PO DAILY [facility] Last Admin: 10/16/18 10:18 Dose: 20 mg echo 12/2016: nl lv/rv, mild lae, mild mr, mild-mod tr, possible mild as, mild phtn exercise mibi 01/02: no ischemia at 80% mphr EKG: sinus, LBBB, mobitz 1 (similar to prior EKGs) a/p: 68M h/o CVA, HTN, HLD, COPD (on 3L O2), CKD, DM, TIA, chronic diastolic hf /venous insufficiency, 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 bradycardia, Abnormal EKG, mobitz 1, LBBB: - chronic findings, has had prior event monitors in clinic showing mobitz 1 without significant pauses - bradycardia likely in setting of hyperkalemia, appears to have improved with correction of K - avoid AV arsh blocking agents elevated trop - borderline trop level with flat trend in setting of THERESA - no chest pain - not c/w acs COPD - seems stable presently chronic venous insuff/LE edema, recurrent cellulitis: - manage per primary PAD: -prior h/o left fem-pop bypass, cont asa, statin. no clear indication for plavix, stopped now, especially in setting of anemia. chronic diastolic CHF -echoes have been unremarkable or very TDS in past, most recent 12/2016 was unremarkable - BNP elevated, however in setting of THERESA, appears euvolemic, no dyspnea - continue home torsemide 20 mg daily, euvolemic hyperkalemia - manage per primary THERESA - renal consulted elevated LFTs - GI consulted htn: -stable, controlled hld: -cont statin h/o TIA (2003): -on ASA, statin for sec prevention, cont same anemia, preop -no clear indication for plavix, dc'ed -he is on asa for PAD, can be held temporarily if needed -no cardiac contraindications to egd/colonoscopy
[2018-10-17] MEDS: MINERAL OIL/PET HY-PHL TOPICAL OINTMENT 454 GM JAR TP SCH ×2 (10:30→21:27)
[2018-10-17] MEDS: LIDOCAINE 5% TOPICAL PATCH TP SCH (10:30)
[2018-10-17] MEDS: HEPARIN NA (PORCINE) 5,000 UNITS/ML 1ML VIAL SQ SCH ×2 (10:30→21:27)
[2018-10-17] MEDS: POLYETHYLENE GLYCOL 3350 119 GM BTL PO SCH ×2 (10:30→21:28)
[2018-10-17] MEDS: methylPREDNISolone NA SUCC 40 MG/1 ML VIAL IVPUSH SCH ×2 (10:30→21:27)
[2018-10-17] MEDS: NYSTATIN/TRIAMCINOLONE TOPICAL OINTMENT 15 GM TUBE TP SCH ×2 (10:30→21:28)
[2018-10-17] MEDS: TORSEMIDE 20 MG TABLET (FP) PO SCH (10:30)
[2018-10-17] MEDS: PANTOPRAZOLE 20 MG TABLET (FP) PO SCH (10:30)
[2018-10-17] MEDS: NYSTATIN 100,000 UNIT/GM TOPICAL CREAM 15 GM TUBE TP SCH ×2 (10:30→21:28)
[2018-10-17] MEDS: ASPIRIN COATED 81 MG TABLET.EC PO SCH (10:30)
[2018-10-17] MEDS: TIOTROPIUM BROMIDE 2.5 MCG (SPIRIVA) RESPIMAT INHALER IH SCH (10:31)
[2018-10-17] MEDS: AZITHROMYCIN IVPB 500 MG/250 ML BAG IVPB SCH (10:31)
[2018-10-17] MEDS: BUDESONIDE/FORMETEROL FUMARATE 160/4.5 mcg INHALER IH SCH ×2 (10:31→21:28)
--- NOTE | 2018-10-17 11:16 | PN ---
GI Progress Note Subjective: GI NOte: After I got Calixto's signed informed consent for the EGD and colonoscopy I received a call back from his . I explained the purpose of the procedures given his rectal bleeding and anemia and to exclude malignancy. I also informed her of the potential risks of perforation and hemorrhage and of the risks of coming to need mechanical ventilation as a result of anesthesia. She questions her 's competency so I have asked Dr Valle to consult psychiatry to determine Calixto's ability to make such a decision. - Objective Vital Signs: Vital Signs Temperature 97.6 F 10/17/18 06:00 Pulse Rate 70 10/17/18 06:00 Respiratory Rate 20 10/17/18 06:00 Blood Pressure 160/93 10/17/18 06:00 O2 Sat by Pulse Oximetry (%) 96 10/17/18 02:11 Constitutional: Anxious ...Auscultate: Yes: Normoactive Bowel Sounds ...Palpate: Yes: Soft, Other (nontender) Labs: CBC, BMP 10/16/18 07:45 10/16/18 07:45 INR, PTT INR 1.24 (0.83-1.09) H 10/15/18 06:00 Assessment/Plan Await psychiatry determination of Calixto's competency as well as clearance by pulmonary and cardiology Problem List - Problems (1) Microcytic anemia Assessment/Plan: I await psychiatry's determination as to whether or not Calixto's consent is acceptable before scheduling him. Also await pulmonary and cardiology clearances. Will continue Miralax. Code(s): D50.9 - IRON DEFICIENCY ANEMIA, UNSPECIFIED (2) Elevated LFTs Code(s): R94.5 - ABNORMAL RESULTS OF LIVER FUNCTION STUDIES (3) Acute on chronic respiratory failure with hypoxia and hypercapnia Code(s): J96.21 - ACUTE AND CHRONIC RESPIRATORY FAILURE WITH HYPOXIA; J96.22 - ACUTE AND CHRONIC RESPIRATORY FAILURE WITH HYPERCAPNIA (4) COPD (chronic obstructive pulmonary disease) Code(s): J44.9 - CHRONIC OBSTRUCTIVE PULMONARY DISEASE, UNSPECIFIED Qualifiers: COPD type: unspecified COPD Qualified Code(s): J44.9 - Chronic obstructive pulmonary disease, unspecified (5) Diabetes mellitus Code(s): E11.9 - TYPE 2 DIABETES MELLITUS WITHOUT COMPLICATIONS (6) Sepsis Code(s): A41.9 - SEPSIS, UNSPECIFIED ORGANISM (7) Sleep apnea Code(s): G47.30 - SLEEP APNEA, UNSPECIFIED (8) Morbid obesity Code(s): E66.01 - MORBID (SEVERE) OBESITY DUE TO EXCESS CALORIES (9) Fatty liver Code(s): K76.0 - FATTY (CHANGE OF) LIVER, NOT ELSEWHERE CLASSIFIED (10) Gallbladder calculus Code(s): K80.20 - CALCULUS OF GALLBLADDER W/O CHOLECYSTITIS W/O OBSTRUCTION
--- NOTE | 2018-10-17 11:29 | PN ---
Progress Note, Physician History of Present Illness: PULMONARY ALERT,NO DISTRESS,DYSPNEA IMPROVED,-TACHYPNEA - Current Medication List Current Medications: Active Medications Albuterol Sulfate (Ventolin 0.083% Nebulizer Soln -) 1 amp NEB Q6H PRN PRN Reason: SHORT OF BREATH/WHEEZING Last Admin: 10/17/18 00:26 Dose: 1 amp Aspirin (Ecotrin -) 81 mg PO DAILY [facility] Last Admin: 10/17/18 10:30 Dose: 81 mg Budesonide/Formoterol Fumarate (Symbicort 160/4.5mcg -) 2 puff IH BID [facility] Last Admin: 10/17/18 10:31 Dose: 2 puff Emollient Ointment (Aquaphor -) 1 applic TP BID [facility] Last Admin: 10/17/18 10:30 Dose: 1 applic Heparin Sodium (Porcine) (Heparin -) 5,000 unit SQ BID [facility] Last Admin: 10/17/18 10:30 Dose: 5,000 unit Azithromycin (Zithromax 500mg Ivpb (Pre-Docked)) 500 mg in 250 mls @ 250 mls/ hr IVPB DAILY [facility] Last Admin: 10/17/18 10:31 Dose: 250 mls/hr Insulin Aspart (Novolog Vial Sliding Scale -) 1 vial SQ ACHS [facility]; Protocol Last Admin: 10/17/18 06:30 Dose: 4 units Lidocaine (Lidoderm Patch -) 1 patch TP DAILY [facility] Last Admin: 10/17/18 10:30 Dose: 1 patch Methylprednisolone Sodium Succinate (Solu-Medrol -) 20 mg IVPUSH BID [facility] Last Admin: 10/17/18 10:30 Dose: 20 mg Miscellaneous (Lidoderm Patch Removal) 1 each MC DAILY@2200 [facility] Last Admin: 10/16/18 22:18 Dose: 1 each Nystatin (Mycostatin Cream -) 1 applic TP BID [facility] Last Admin: 10/17/18 10:30 Dose: 1 applic Nystatin/Triamcinolone Acetonide (Mycolog Ii Ointment -) 1 applic TP BID [facility] Last Admin: 10/17/18 10:30 Dose: 1 applic Oxycodone HCl (Roxicodone -) 5 mg PO Q6H PRN PRN Reason: PAIN LEVEL 7 - 10 Last Admin: 10/15/18 21:12 Dose: 5 mg Pantoprazole Sodium (Protonix -) 40 mg PO DAILY [facility] Last Admin: 10/17/18 10:30 Dose: 40 mg Polyethylene Glycol (Miralax (For Daily Use) -) 17 gm PO BID [facility] Last Admin: 10/17/18 10:30 Dose: Not Given Tiotropium [place] (Spiriva Respimat) 2 puff IH DAILY [facility] Last Admin: 10/17/18 10:31 Dose: 2 puff Torsemide (Demadex -) 20 mg PO DAILY [facility] Last Admin: 10/17/18 10:30 Dose: 20 mg - Objective Vital Signs: Vital Signs Temperature 97.6 F 10/17/18 06:00 Pulse Rate 70 10/17/18 06:00 Respiratory Rate 20 10/17/18 06:00 Blood Pressure 160/93 10/17/18 06:00 O2 Sat by Pulse Oximetry (%) 96 10/17/18 02:11 Constitutional: Yes: Well Nourished, Calm Eyes: Yes: WNL HENT: Yes: WNL Neck: Yes: WNL Cardiovascular: Yes: Regular Rate and Rhythm, S1, S2 Respiratory: Yes: Diminished Gastrointestinal: Yes: Normal Bowel Sounds, Soft Extremities: Yes: Other (WRAPPED) Edema: Yes Labs: CBC, BMP 10/16/18 07:45 10/16/18 07:45 INR, PTT INR 1.24 (0.83-1.09) H 10/15/18 06:00 Laboratory Tests 10/16/18 15:18 ABG pH 7.46 H ABG pCO2 at Pt Temp 56.0 H ABG pO2 at Pt Temp 71.7 L D ABG HCO3 38.8 H ABG O2 Sat (Measured) 94.5 Problem List - Problems (1) Bradycardia Code(s): R00.1 - BRADYCARDIA, UNSPECIFIED (2) Elevated LFTs Code(s): R94.5 - ABNORMAL RESULTS OF LIVER FUNCTION STUDIES (3) MARTIN on CPAP Code(s): G47.33 - OBSTRUCTIVE SLEEP APNEA (ADULT) (PEDIATRIC); Z99.89 - DEPENDENCE ON OTHER ENABLING MACHINES AND DEVICES (4) Acute on chronic respiratory failure with hypoxia and hypercapnia Code(s): J96.21 - ACUTE AND CHRONIC RESPIRATORY FAILURE WITH HYPOXIA; J96.22 - ACUTE AND CHRONIC RESPIRATORY FAILURE WITH HYPERCAPNIA (5) CHF (congestive heart failure) Code(s): I50.9 - HEART FAILURE, UNSPECIFIED (6) CVA (cerebral vascular accident) Code(s): I63.9 - CEREBRAL INFARCTION, UNSPECIFIED (7) Diabetes mellitus Code(s): E11.9 - TYPE 2 DIABETES MELLITUS WITHOUT COMPLICATIONS (8) Hyperkalemia Code(s): E87.5 - HYPERKALEMIA (9) Sleep apnea Code(s): G47.30 - SLEEP APNEA, UNSPECIFIED (10) CAD (coronary artery disease) Code(s): I25.10 - ATHSCL HEART DISEASE OF [place] CORONARY ARTERY W/O ANG PCTRS (11) Leg edema Code(s): R60.0 - LOCALIZED EDEMA (12) Mobitz (type) I (Wenckebach's) atrioventricular block Code(s): I44.1 - ATRIOVENTRICULAR BLOCK, SECOND DEGREE (13) Gndht-vm-sqnfpsf kidney injury Code(s): N17.9 - ACUTE KIDNEY FAILURE, UNSPECIFIED; N18.9 - CHRONIC KIDNEY DISEASE, UNSPECIFIED Assessment/Plan IMP ACUTE ON CHRONIC HYPOXEMIC/HYPERCAPNEIC RESPIRATORY FAILURE COPD END STAGE O2 DEPENDENT ACUTE ON CHRONIC KIDNEY INJURY MARTIN BRADYCARDIA HTN H/O CVA TOBACCO ABUSE + TROPONIN ELEVATED LFTS PLAN INHALED BRONCHODILATORS O2 BIPAP AT NIGHT AND PRN MONITOR LYTES,RENAL FUNCTION,LFTS F/U CHEST X-RAYS NO ABSOLUTE PULMONARY CONTRAINDICATIONS FOR COLONOSCOPY DR GREEN Problem List - Problems (1) Bradycardia Code(s): R00.1 - BRADYCARDIA, UNSPECIFIED (2) Elevated LFTs Code(s): R94.5 - ABNORMAL RESULTS OF LIVER FUNCTION STUDIES (3) MARTIN on CPAP Code(s): G47.33 - OBSTRUCTIVE SLEEP APNEA (ADULT) (PEDIATRIC); Z99.89 - DEPENDENCE ON OTHER ENABLING MACHINES AND DEVICES (4) Acute on chronic respiratory failure with hypoxia and hypercapnia Code(s): J96.21 - ACUTE AND CHRONIC RESPIRATORY FAILURE WITH HYPOXIA; J96.22 - ACUTE AND CHRONIC RESPIRATORY FAILURE WITH HYPERCAPNIA (5) CHF (congestive heart failure) Code(s): I50.9 - HEART FAILURE, UNSPECIFIED (6) CVA (cerebral vascular accident) Code(s): I63.9 - CEREBRAL INFARCTION, UNSPECIFIED (7) Diabetes mellitus Code(s): E11.9 - TYPE 2 DIABETES MELLITUS WITHOUT COMPLICATIONS (8) Hyperkalemia Code(s): E87.5 - HYPERKALEMIA (9) Sleep apnea Code(s): G47.30 - SLEEP APNEA, UNSPECIFIED (10) CAD (coronary artery disease) Code(s): I25.10 - ATHSCL HEART DISEASE OF [place] CORONARY ARTERY W/O ANG PCTRS (11) Leg edema Code(s): R60.0 - LOCALIZED EDEMA (12) Mobitz (type) I (Wenckebach's) atrioventricular block Code(s): I44.1 - ATRIOVENTRICULAR BLOCK, SECOND DEGREE (13) Xveev-dh-ukkrupv kidney injury Code(s): N17.9 - ACUTE KIDNEY FAILURE, UNSPECIFIED; N18.9 - CHRONIC KIDNEY DISEASE, UNSPECIFIED
[2018-10-17 13:26] LABS: ANION GAP 5 MMOL/L (8-16); BLOOD UREA NITROGEN 43 mg/dL (7-18); CALCIUM 8.1 mg/dL (8.5-10.1); CHLORIDE 93 mmol/L (98-107); CO2 41 mmol/L (21-32); CREATININE 1.4 mg/dL (0.55-1.3); GLUCOSE,RANDOM 199 mg/dL (74-106); SODIUM 139 mmol/L (136-145)
--- NOTE | 2018-10-17 15:00 | PN ---
Progress Note, Physician History of Present Illness: Pt w/o CP, SOB, palpitations, abd pain. - Current Medication List Current Medications: Active Medications Albuterol Sulfate (Ventolin 0.083% Nebulizer Soln -) 1 amp NEB Q6H PRN PRN Reason: SHORT OF BREATH/WHEEZING Last Admin: 10/17/18 00:26 Dose: 1 amp Aspirin (Ecotrin -) 81 mg PO DAILY [facility] Last Admin: 10/17/18 10:30 Dose: 81 mg Budesonide/Formoterol Fumarate (Symbicort 160/4.5mcg -) 2 puff IH BID [facility] Last Admin: 10/17/18 10:31 Dose: 2 puff Emollient Ointment (Aquaphor -) 1 applic TP BID [facility] Last Admin: 10/17/18 10:30 Dose: 1 applic Heparin Sodium (Porcine) (Heparin -) 5,000 unit SQ BID [facility] Last Admin: 10/17/18 10:30 Dose: 5,000 unit Azithromycin (Zithromax 500mg Ivpb (Pre-Docked)) 500 mg in 250 mls @ 250 mls/ hr IVPB DAILY [facility] Last Admin: 10/17/18 10:31 Dose: 250 mls/hr Insulin Aspart (Novolog Vial Sliding Scale -) 1 vial SQ ACHS [facility]; Protocol Last Admin: 10/17/18 12:00 Dose: 4 units Lidocaine (Lidoderm Patch -) 1 patch TP DAILY [facility] Last Admin: 10/17/18 10:30 Dose: 1 patch Methylprednisolone Sodium Succinate (Solu-Medrol -) 20 mg IVPUSH BID [facility] Last Admin: 10/17/18 10:30 Dose: 20 mg Miscellaneous (Lidoderm Patch Removal) 1 each MC DAILY@2200 [facility] Last Admin: 10/16/18 22:18 Dose: 1 each Nystatin (Mycostatin Cream -) 1 applic TP BID [facility] Last Admin: 10/17/18 10:30 Dose: 1 applic Nystatin/Triamcinolone Acetonide (Mycolog Ii Ointment -) 1 applic TP BID [facility] Last Admin: 10/17/18 10:30 Dose: 1 applic Oxycodone HCl (Roxicodone -) 5 mg PO Q6H PRN PRN Reason: PAIN LEVEL 7 - 10 Last Admin: 10/15/18 21:12 Dose: 5 mg Pantoprazole Sodium (Protonix -) 40 mg PO DAILY [facility] Last Admin: 10/17/18 10:30 Dose: 40 mg Polyethylene Glycol (Miralax (For Daily Use) -) 17 gm PO BID [facility] Last Admin: 10/17/18 10:30 Dose: Not Given Tiotropium [place] (Spiriva Respimat) 2 puff IH DAILY [facility] Last Admin: 10/17/18 10:31 Dose: 2 puff Torsemide (Demadex -) 20 mg PO DAILY [facility] Last Admin: 10/17/18 10:30 Dose: 20 mg - Objective Vital Signs: Vital Signs Temperature 97.4 F L 10/17/18 14:25 Pulse Rate 61 10/17/18 14:25 Respiratory Rate 20 10/17/18 14:25 Blood Pressure 156/65 10/17/18 14:25 O2 Sat by Pulse Oximetry (%) 96 10/17/18 10:00 Constitutional: Yes: No Distress, Calm Cardiovascular: Yes: Regular Rate and Rhythm, S1, S2 Respiratory: Yes: Regular, Other (minimal scattered rhonchi and wheezing) Gastrointestinal: Yes: Normal Bowel Sounds, Soft, Abdomen, Obese. No: Tenderness Edema: Yes Neurological: Yes: Alert, Oriented Labs: CBC, BMP 10/16/18 07:45 10/17/18 12:20 INR, PTT INR 1.24 (0.83-1.09) H 10/15/18 06:00 Problem List - Problems (1) THERESA (acute kidney injury) Code(s): N17.9 - ACUTE KIDNEY FAILURE, UNSPECIFIED (2) Elevated LFTs Code(s): R94.5 - ABNORMAL RESULTS OF LIVER FUNCTION STUDIES (3) Bradycardia Code(s): R00.1 - BRADYCARDIA, UNSPECIFIED (4) Anemia Code(s): D64.9 - ANEMIA, UNSPECIFIED (5) MARTIN on CPAP Code(s): G47.33 - OBSTRUCTIVE SLEEP APNEA (ADULT) (PEDIATRIC); Z99.89 - DEPENDENCE ON OTHER ENABLING MACHINES AND DEVICES (6) CHF (congestive heart failure) Code(s): I50.9 - HEART FAILURE, UNSPECIFIED (7) COPD with acute exacerbation Code(s): J44.1 - CHRONIC OBSTRUCTIVE PULMONARY DISEASE W (ACUTE) EXACERBATION (8) CVA (cerebral vascular accident) Code(s): I63.9 - CEREBRAL INFARCTION, UNSPECIFIED (9) Cellulitis of both lower extremities Code(s): L03.115 - CELLULITIS OF RIGHT LOWER LIMB; L03.116 - CELLULITIS OF LEFT LOWER LIMB (10) Diabetes mellitus Code(s): E11.9 - TYPE 2 DIABETES MELLITUS WITHOUT COMPLICATIONS (11) Elevated troponin I level Code(s): R74.8 - ABNORMAL LEVELS OF OTHER SERUM ENZYMES (12) Rectal bleeding Code(s): K62.5 - HEMORRHAGE OF ANUS AND RECTUM (13) CRF (chronic renal failure) Code(s): N18.9 - CHRONIC KIDNEY DISEASE, UNSPECIFIED (14) Chronic renal disease Code(s): N18.9 - CHRONIC KIDNEY DISEASE, UNSPECIFIED Assessment/Plan Kidney function is improved, possible new baseline Liver function is improved Stable H/H Admitted to Telemetry. Pt was found to have capacity fro consent for medical procedure. AM Labs
--- NOTE | 2018-10-17 15:02 | PN ---
Mental Health Exam - Mental Status Exam Alert and Oriented to: Place, Person (DISORIENTATED TO TIME. ) Cognitive Function: Grossly Intact Patient Appearance: Unkempt Mood: Angry, Hostile, Anxious ("I WANT A CIGARETTE". ), Expansive Affect: Mood Congruent Patient Behavior: Belligerent (PER REPORT FROM DR OCONNOR.. LOUD, ), Cooperative Speech Pattern: Rambling (CRAVING ALCHOL, CIGARETTES. ) Voice Loudness: Severely Loud (SCREAMING AT TOP OF VOICE, STATES CALL [facility] NOT WORKING.. ) Thought Process: Goal Oriented ("HOW CAN U HELP ME TO LEAVE HERE". ) Thought Disorder: Not Present Hallucinations: None Suicidal Ideation: None ("ARE U CRAZY". ), Denies Homicidal Ideation: Denies ("BUT REPORT BY RESIDENT THAT HE HAS TOUCH A NURSE, BELIGERENT IN CARE, SECURITY CALLED. ") Insight/Judgement: Poor ("DOES NOT REALIZE SEVERITY OF ILLNEZS". ) Sleep: Fair Appetite: Good Muscle strength/Tone: Mild Hypotonicity Gait/Station: Deferred Additional Comments: cALLED FOR ASSESSMENT OF COMPETANCY. hE HAS copd, dm, OBESITY, htn. cLIENT HAS NO PAST PSYCH HISTORY, NO PREVIOUS ADMISSIONS TO INPATIENT. cLIENT HAS SUBSTANCE USE HISTORY, CRAVING ALCHOL, NICOTINE. hE IS ANGRY, SEEKING A CIGARETTE ( AT ANY COST). dENIES si, hi, ah OR vh. NO DEPRESSION OR PSYCHOSIS. hE IS HOPEFUL, IN A SINGLE ROOM, FEELS HE IS NOT GETTING ATTENTION, OFTEN SCREAMS, REPORTED THAT SHE MAY HAVE TOUCHED STAFF WORKING WITH HIM. HIS IS A CAREGIVER. sPOKE WITH DR OCONNOR, REGARDING BEHAVIOUR AND PLAN OF CARE TO HAVE A COLONOSCOPY. cLIENT IS ABLE TO CONSENT WITH [facility] FOR THE PROCEEDURE.
[2018-10-17] MEDS ORDERED: PT OWN MED DRAWER 7, Y5N ONE (21:23)
[2018-10-17] MEDS: LIDOCAINE PATCH REMOVAL MC SCH (21:28)
[2018-10-18] MEDS ORDERED: PT OWN MED DRAWER 7, Y5N ONE ×2 (05:57→22:04)
[2018-10-18] MEDS: INSULIN SLIDING SCALE (NOVOLOG) 1 VIAL SQ SCH ×4 (07:09→22:14)
[2018-10-18] MEDS: LIDOCAINE 5% TOPICAL PATCH TP SCH (10:43)
[2018-10-18] MEDS: TORSEMIDE 20 MG TABLET (FP) PO SCH (10:43)
[2018-10-18] MEDS: PANTOPRAZOLE 20 MG TABLET (FP) PO SCH (10:43)
[2018-10-18] MEDS: HEPARIN NA (PORCINE) 5,000 UNITS/ML 1ML VIAL SQ SCH ×2 (10:44→22:13)
[2018-10-18] MEDS: NYSTATIN/TRIAMCINOLONE TOPICAL OINTMENT 15 GM TUBE TP SCH ×2 (10:44→22:15)
[2018-10-18] MEDS: methylPREDNISolone NA SUCC 40 MG/1 ML VIAL IVPUSH SCH ×2 (10:44→22:16)
[2018-10-18] MEDS: ASPIRIN COATED 81 MG TABLET.EC PO SCH (10:44)
[2018-10-18] MEDS: NYSTATIN 100,000 UNIT/GM TOPICAL CREAM 15 GM TUBE TP SCH ×2 (10:45→22:15)
[2018-10-18] MEDS: MINERAL OIL/PET HY-PHL TOPICAL OINTMENT 454 GM JAR TP SCH ×2 (10:45→22:15)
[2018-10-18] MEDS: TIOTROPIUM BROMIDE 2.5 MCG (SPIRIVA) RESPIMAT INHALER IH SCH (10:45)
[2018-10-18] MEDS: POLYETHYLENE GLYCOL 3350 119 GM BTL PO SCH ×2 (10:45→22:15)
[2018-10-18] MEDS: BUDESONIDE/FORMETEROL FUMARATE 160/4.5 mcg INHALER IH SCH ×2 (10:45→22:16)
[2018-10-18] MEDS: AZITHROMYCIN IVPB 500 MG/250 ML BAG IVPB SCH (10:46)
--- NOTE | 2018-10-18 11:07 | PN ---
Progress Note (short form) - Note Progress Note: s: no cp sob palps dizzy o: Vital Signs Period Temp Pulse Resp BP Sys/Mullen Pulse Ox Last 24 Hr 97.4 F-97.8 F 50-61 18-20 156-169/63-89 96-96 Constitutional: Yes: No Distress, Calm Eyes: Yes: Conjunctiva Clear, Neck: Yes: Supple, Trachea Midline Respiratory: Yes: cta bl nl eff Gastrointestinal: Yes: Normal Bowel Sounds, Soft Cardiovascular: Yes: Regular Rate and Rhythm JVD: No Carotid Bruit: No Heart Sounds: Yes: S1, S2 Extremities: Yes: Erythema, Other (erythema bilateral feet and ankles with weeping from wounds) Edema: trace/1+ le edema bl Peripheral Pulses: 1+ Left Doralis Pedis, 1+ Right Dorsalis Pedis Integumentary: no jaundice diaphoresis [id number] Current Medications Generic Name Dose Route Start Last Admin Trade Name Freq PRN Reason Stop Dose Admin Albuterol Sulfate 1 amp 10/09/18 20:38 10/17/18 00:26 Ventolin 0.083% Nebulizer Soln - NEB 1 amp Q6H PRN Administration SHORT OF BREATH/WHEEZING Aspirin 81 mg 10/10/18 10:00 10/18/18 10:44 Ecotrin - PO 81 mg DAILY [facility] Administration Budesonide/Formoterol Fumarate 2 puff 10/09/18 22:00 10/18/18 10:45 Symbicort 160/4.5mcg - IH 2 puff BID RAJESH Administration Emollient Ointment 1 applic 10/09/18 22:00 10/18/18 10:45 Aquaphor - TP 1 applic BID [facility]ESH Administration Heparin Sodium (Porcine) 5,000 unit 10/11/18 22:30 10/18/18 10:44 Heparin - SQ 5,000 unit BID [facility]ESH Administration Azithromycin 500 mg in 250 mls @ 250 mls/hr 10/12/18 10:00 10/18/18 10:46 Zithromax 500mg Ivpb (Pre-Docked) IVPB 250 mls/hr DAILY [facility] Administration Insulin Aspart 1 vial 10/09/18 22:00 10/18/18 07:09 Novolog Vial Sliding Scale - SQ 4 units ACHS [facility]JESH Administration Protocol Lidocaine 1 patch 10/10/18 10:00 10/18/18 10:43 Lidoderm Patch - TP 1 patch DAILY [facility] Administration Methylprednisolone Sodium Succinate 20 mg 10/14/18 08:45 10/18/18 10:44 Solu-Medrol - IVPUSH 20 mg BID [facility] Administration Miscellaneous 1 each 10/09/18 22:00 10/17/18 21:28 Lidoderm Patch Removal MC 1 each DAILY@2200 [facility] Administration Nystatin 1 applic 10/09/18 22:00 10/18/18 10:45 Mycostatin Cream - TP 1 applic BID [facility] Administration Nystatin/Triamcinolone Acetonide 1 applic 10/09/18 22:00 10/18/18 10:44 Mycolog Ii Ointment - TP 1 applic BID [facility] Administration Oxycodone HCl 5 mg 10/10/18 08:52 10/15/18 21:12 Roxicodone - PO 5 mg Q6H PRN Administration PAIN LEVEL 7 - 10 Pantoprazole Sodium 40 mg 10/14/18 15:15 10/18/18 10:43 Protonix - PO 40 mg DAILY [facility] Administration Polyethylene Glycol 17 gm 10/14/18 22:00 10/18/18 10:45 Miralax (For Daily Use) - PO Not Given BID [facility]ESH Tiotropium [place] 2 puff 10/10/18 10:00 10/18/18 10:45 Spiriva Respimat IH 2 puff DAILY [facility] Administration Torsemide 20 mg 10/13/18 10:00 10/18/18 10:43 Demadex - PO 20 mg DAILY [facility] Administration CBC, BMP 10/16/18 07:45 10/17/18 12:20 echo 12/2016: nl lv/rv, mild lae, mild mr, mild-mod tr, possible mild as, mild phtn exercise mibi 01/02: no ischemia at 80% mphr EKG: sinus, LBBB, mobitz 1 (similar to prior EKGs) tele: sinus, LBBB, mobitz I a/p: 68M h/o CVA, HTN, HLD, COPD (on 3L O2), CKD, DM, TIA, chronic diastolic hf /venous insufficiency, 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 bradycardia, Abnormal EKG, mobitz 1, LBBB: - chronic findings, has had prior event monitors in clinic showing mobitz 1 without significant pauses - bradycardia likely in setting of hyperkalemia, appears to have improved with correction of K - avoid AV arsh blocking agents - can dc tele elevated trop - borderline trop level with flat trend in setting of THERESA - no chest pain - not c/w acs COPD - seems stable presently chronic venous insuff/LE edema, recurrent cellulitis: - manage per primary PAD: -prior h/o left fem-pop bypass, cont asa, statin. no clear indication for plavix, stopped now, especially in setting of anemia. chronic diastolic CHF -echoes have been unremarkable or very TDS in past, most recent 12/2016 was unremarkable - cont po torsemide THERESA - improving, renal consulted htn: -stable, controlled hld: -cont statin h/o TIA (2003): -on ASA, statin for sec prevention, cont same anemia: -no clear indication for plavix, so stopped now -he is on asa for PAD, can be held temporarily if needed -no cardiac contraindications to egd/foc if needed
--- NOTE | 2018-10-18 11:15 | PN ---
Progress Note (short form) - Note Progress Note: Renal follow up for THERESA on CKD Pt seen and examined at the bedside no acute complaints today making urine no pain, sob, N/V Vital Signs Temperature 97.6 F 10/18/18 02:00 Pulse Rate 50 L 10/18/18 02:00 Respiratory Rate 18 10/18/18 02:00 Blood Pressure 159/63 10/18/18 02:00 O2 Sat by Pulse Oximetry (%) 96 10/17/18 23:15 Intake & Output 10/15/18 10/16/18 10/17/18 10/18/18 23:59 23:59 23:59 23:59 Intake Total 874 947 4585 350 Output Total 800 1350 900 Balance -160 980 850 -550 NAD + edema in LE CBC, BMP 10/16/18 07:45 10/17/18 12:20 Current Medications Albuterol Sulfate (Ventolin 0.083% Nebulizer Soln -) 1 amp NEB Q6H PRN PRN Reason: SHORT OF BREATH/WHEEZING Last Admin: 10/17/18 00:26 Dose: 1 amp Aspirin (Ecotrin -) 81 mg PO DAILY [facility] Last Admin: 10/18/18 10:44 Dose: 81 mg Budesonide/Formoterol Fumarate (Symbicort 160/4.5mcg -) 2 puff IH BID [facility] Last Admin: 10/18/18 10:45 Dose: 2 puff Emollient Ointment (Aquaphor -) 1 applic TP BID [facility] Last Admin: 10/18/18 10:45 Dose: 1 applic Heparin Sodium (Porcine) (Heparin -) 5,000 unit SQ BID [facility] Last Admin: 10/18/18 10:44 Dose: 5,000 unit Azithromycin (Zithromax 500mg Ivpb (Pre-Docked)) 500 mg in 250 mls @ 250 mls/ hr IVPB DAILY [facility] Last Admin: 10/18/18 10:46 Dose: 250 mls/hr Insulin Aspart (Novolog Vial Sliding Scale -) 1 vial SQ ACHS [facility]; Protocol Last Admin: 10/18/18 07:09 Dose: 4 units Lidocaine (Lidoderm Patch -) 1 patch TP DAILY [facility] Last Admin: 10/18/18 10:43 Dose: 1 patch Methylprednisolone Sodium Succinate (Solu-Medrol -) 20 mg IVPUSH BID [facility] Last Admin: 10/18/18 10:44 Dose: 20 mg Miscellaneous (Lidoderm Patch Removal) 1 each MC DAILY@2200 [facility] Last Admin: 10/17/18 21:28 Dose: 1 each Nystatin (Mycostatin Cream -) 1 applic TP BID [facility] Last Admin: 10/18/18 10:45 Dose: 1 applic Nystatin/Triamcinolone Acetonide (Mycolog Ii Ointment -) 1 applic TP BID [facility] Last Admin: 10/18/18 10:44 Dose: 1 applic Oxycodone HCl (Roxicodone -) 5 mg PO Q6H PRN PRN Reason: PAIN LEVEL 7 - 10 Last Admin: 10/15/18 21:12 Dose: 5 mg Pantoprazole Sodium (Protonix -) 40 mg PO DAILY [facility] Last Admin: 10/18/18 10:43 Dose: 40 mg Polyethylene Glycol (Miralax (For Daily Use) -) 17 gm PO BID [facility] Last Admin: 10/18/18 10:45 Dose: Not Given Tiotropium [place] (Spiriva Respimat) 2 puff IH DAILY [facility] Last Admin: 10/18/18 10:45 Dose: 2 puff Torsemide (Demadex -) 20 mg PO DAILY [facility] Last Admin: 10/18/18 10:43 Dose: 20 mg 68 year old gentleman with hx of CKD, MARTIN, COPD, CVA, DM who was sent to the ED from [place] for hyperkalemia and found to have THERESA And acute liver injury. #THERESA on CKD likely due to intravascular volume depletion #Abnormal LFT's/Acute liver injury #Chronic LE edema #Anemia Renal function slightly above baseline but stable Continue Torsemide 20mg Daily for management of LE edema LFT's improving, JORDAN pending for planned EGD/Colonoscopy as per GI Would continue to trend renal function and electrolytes while inpatient Thank you Kartik Escobedo DO
--- NOTE | 2018-10-18 15:36 | PN ---
Progress Note (short form) - Note Progress Note: PULMONARY Breathing about the same. Remains belligerent. Vital Signs Period Temp Pulse Resp BP Sys/Mullen Pulse Ox Last 24 Hr 97.6 F-97.9 F 50-62 18-20 145-169/62-89 96-98 Gen: NAD at rest Heart: RRR Lung: decreased breath sounds at the bases Abd: soft, nontender Ext: + edema CBC, BMP 10/16/18 07:45 10/17/18 12:20 Active Medications Albuterol Sulfate (Ventolin 0.083% Nebulizer Soln -) 1 amp NEB Q6H PRN PRN Reason: SHORT OF BREATH/WHEEZING Last Admin: 10/17/18 00:26 Dose: 1 amp Aspirin (Ecotrin -) 81 mg PO DAILY [facility] Last Admin: 10/18/18 10:44 Dose: 81 mg Budesonide/Formoterol Fumarate (Symbicort 160/4.5mcg -) 2 puff IH BID [facility] Last Admin: 10/18/18 10:45 Dose: 2 puff Emollient Ointment (Aquaphor -) 1 applic TP BID [facility] Last Admin: 10/18/18 10:45 Dose: 1 applic Heparin Sodium (Porcine) (Heparin -) 5,000 unit SQ BID [facility] Last Admin: 10/18/18 10:44 Dose: 5,000 unit Azithromycin (Zithromax 500mg Ivpb (Pre-Docked)) 500 mg in 250 mls @ 250 mls/ hr IVPB DAILY [facility] Last Admin: 10/18/18 10:46 Dose: 250 mls/hr Insulin Aspart (Novolog Vial Sliding Scale -) 1 vial SQ ACHS [facility]; Protocol Last Admin: 10/18/18 12:16 Dose: 6 units Lidocaine (Lidoderm Patch -) 1 patch TP DAILY [facility] Last Admin: 10/18/18 10:43 Dose: 1 patch Methylprednisolone Sodium Succinate (Solu-Medrol -) 20 mg IVPUSH BID [facility] Last Admin: 10/18/18 10:44 Dose: 20 mg Miscellaneous (Lidoderm Patch Removal) 1 each MC DAILY@2200 [facility] Last Admin: 10/17/18 21:28 Dose: 1 each Nystatin (Mycostatin Cream -) 1 applic TP BID [facility] Last Admin: 10/18/18 10:45 Dose: 1 applic Nystatin/Triamcinolone Acetonide (Mycolog Ii Ointment -) 1 applic TP BID [facility] Last Admin: 10/18/18 10:44 Dose: 1 applic Oxycodone HCl (Roxicodone -) 5 mg PO Q6H PRN PRN Reason: PAIN LEVEL 7 - 10 Last Admin: 10/15/18 21:12 Dose: 5 mg Pantoprazole Sodium (Protonix -) 40 mg PO DAILY [facility] Last Admin: 10/18/18 10:43 Dose: 40 mg Polyethylene Glycol (Miralax (For Daily Use) -) 17 gm PO BID [facility] Last Admin: 10/18/18 10:45 Dose: Not Given Tiotropium [place] (Spiriva Respimat) 2 puff IH DAILY [facility] Last Admin: 10/18/18 10:45 Dose: 2 puff Torsemide (Demadex -) 20 mg PO DAILY [facility] Last Admin: 10/18/18 10:43 Dose: 20 mg A/P s/p Fall Bradycardia HTN DM COPD Chronic Hypoxic Respiratory Failure PAD h/o CVA Elevated LFTs Anemia - inhaled bronchodilators - O2 to keep Spo2 >90% - agree with prophylactic steroids prior to endoscopic procedures - DVT prophylaxis - no pulmonary contraindications for planned endoscopies
[2018-10-18] MEDS: oxyCODONE HCL 5 MG TABLET PO PRN (22:16)
[2018-10-18] MEDS: LIDOCAINE PATCH REMOVAL MC SCH (22:30)
[2018-10-18 23:09] LABS: ALPHA 2 MACROGLOBULINS,QN 160 mg/dL (110-276); ALT(SGPT)P5P 107 IU/L (0-55); CHOLESTEROL TOTAL 113 mg/dL (100-199); FIBROSIS SCORE 0.23 (0.00-0.21); GGT= 32 IU/L (0-65); GLUCOSE SERUM 226 mg/dL (65-99); HEIGHT 66 in (.); WEIGHT- 258 LBS (.)
--- NOTE | 2018-10-18 23:59 | PN ---
Progress Note, Physician History of Present Illness: Pt w/o CP, SOB, palpitations, abd pain. - Current Medication List Current Medications: Active Medications Albuterol Sulfate (Ventolin 0.083% Nebulizer Soln -) 1 amp NEB Q6H PRN PRN Reason: SHORT OF BREATH/WHEEZING Last Admin: 10/17/18 00:26 Dose: 1 amp Aspirin (Ecotrin -) 81 mg PO DAILY [facility] Last Admin: 10/18/18 10:44 Dose: 81 mg Budesonide/Formoterol Fumarate (Symbicort 160/4.5mcg -) 2 puff IH BID [facility] Last Admin: 10/18/18 22:16 Dose: 2 puff Emollient Ointment (Aquaphor -) 1 applic TP BID [facility] Last Admin: 10/18/18 22:15 Dose: 1 applic Heparin Sodium (Porcine) (Heparin -) 5,000 unit SQ BID [facility] Last Admin: 10/18/18 22:13 Dose: 5,000 unit Azithromycin (Zithromax 500mg Ivpb (Pre-Docked)) 500 mg in 250 mls @ 250 mls/ hr IVPB DAILY [facility] Last Admin: 10/18/18 10:46 Dose: 250 mls/hr Insulin Aspart (Novolog Vial Sliding Scale -) 1 vial SQ ACHS [facility]; Protocol Last Admin: 10/18/18 22:14 Dose: 2 units Lidocaine (Lidoderm Patch -) 1 patch TP DAILY [facility] Last Admin: 10/18/18 10:43 Dose: 1 patch Methylprednisolone Sodium Succinate (Solu-Medrol -) 20 mg IVPUSH BID [facility] Last Admin: 10/18/18 22:16 Dose: 20 mg Miscellaneous (Lidoderm Patch Removal) 1 each MC DAILY@2200 [facility] Last Admin: 10/18/18 22:30 Dose: Not Given Nystatin (Mycostatin Cream -) 1 applic TP BID [facility] Last Admin: 10/18/18 22:15 Dose: 1 applic Nystatin/Triamcinolone Acetonide (Mycolog Ii Ointment -) 1 applic TP BID [facility] Last Admin: 10/18/18 22:15 Dose: 1 applic Oxycodone HCl (Roxicodone -) 5 mg PO Q6H PRN PRN Reason: PAIN LEVEL 7 - 10 Last Admin: 10/18/18 22:16 Dose: 5 mg Pantoprazole Sodium (Protonix -) 40 mg PO DAILY [facility] Last Admin: 10/18/18 10:43 Dose: 40 mg Polyethylene Glycol (Miralax (For Daily Use) -) 17 gm PO BID [facility] Last Admin: 10/18/18 22:15 Dose: Not Given Tiotropium [place] (Spiriva Respimat) 2 puff IH DAILY [facility] Last Admin: 10/18/18 10:45 Dose: 2 puff Torsemide (Demadex -) 20 mg PO DAILY [facility] Last Admin: 10/18/18 10:43 Dose: 20 mg - Objective Vital Signs: Vital Signs Temperature 98.1 F 10/18/18 22:00 Pulse Rate 61 10/18/18 22:00 Respiratory Rate 18 10/18/18 22:00 Blood Pressure 157/74 10/18/18 22:00 O2 Sat by Pulse Oximetry (%) 99 10/18/18 23:24 Constitutional: Yes: No Distress, Calm Cardiovascular: Yes: Regular Rate and Rhythm, S1, S2 Respiratory: Yes: Regular, Rhonchi Gastrointestinal: Yes: Normal Bowel Sounds, Soft, Abdomen, Obese. No: Tenderness Peripheral Pulses WNL: Yes Neurological: Yes: Alert, Oriented Labs: CBC, BMP 10/16/18 07:45 10/17/18 12:20 INR, PTT INR 1.24 (0.83-1.09) H 10/15/18 06:00 Problem List - Problems (1) THERESA (acute kidney injury) Code(s): N17.9 - ACUTE KIDNEY FAILURE, UNSPECIFIED (2) Elevated LFTs Code(s): R94.5 - ABNORMAL RESULTS OF LIVER FUNCTION STUDIES (3) Bradycardia Code(s): R00.1 - BRADYCARDIA, UNSPECIFIED (4) Anemia Code(s): D64.9 - ANEMIA, UNSPECIFIED (5) MARTIN on CPAP Code(s): G47.33 - OBSTRUCTIVE SLEEP APNEA (ADULT) (PEDIATRIC); Z99.89 - DEPENDENCE ON OTHER ENABLING MACHINES AND DEVICES (6) CHF (congestive heart failure) Code(s): I50.9 - HEART FAILURE, UNSPECIFIED (7) COPD with acute exacerbation Code(s): J44.1 - CHRONIC OBSTRUCTIVE PULMONARY DISEASE W (ACUTE) EXACERBATION (8) CVA (cerebral vascular accident) Code(s): I63.9 - CEREBRAL INFARCTION, UNSPECIFIED (9) Cellulitis of both lower extremities Code(s): L03.115 - CELLULITIS OF RIGHT LOWER LIMB; L03.116 - CELLULITIS OF LEFT LOWER LIMB (10) Diabetes mellitus Code(s): E11.9 - TYPE 2 DIABETES MELLITUS WITHOUT COMPLICATIONS (11) Elevated troponin I level Code(s): R74.8 - ABNORMAL LEVELS OF OTHER SERUM ENZYMES (12) Rectal bleeding Code(s): K62.5 - HEMORRHAGE OF ANUS AND RECTUM (13) CRF (chronic renal failure) Code(s): N18.9 - CHRONIC KIDNEY DISEASE, UNSPECIFIED (14) Chronic renal disease Code(s): N18.9 - CHRONIC KIDNEY DISEASE, UNSPECIFIED Assessment/Plan To monitor Kidney function (improved) and Liver function. Stable H/H. For EGD and coloscopy Admitted to Telemetry. Pt was found to have capacity for consent for medical procedure. AM Labs
[2018-10-19] MEDS ORDERED: PT OWN MED DRAWER 7, Y5N ONE (02:20)
[2018-10-19] MEDS: INSULIN SLIDING SCALE (NOVOLOG) 1 VIAL SQ SCH ×4 (06:35→22:48)
[2018-10-19 06:38] LABS: HEMATOCRIT 34.3 % (35.4-49); HEMOGLOBIN 10.2 GM/dL (11.7-16.9); MCH 23.4 pg (25.7-33.7); MCHC 29.6 g/dl (32.0-35.9); MEAN PLT VOLUME 7.8 fl (7.5-11.1); PLATELET COUNT 209 K/MM3 (134-434); RBC 4.34 M/mm3 (4.00-5.60); RDW 18.9 % (11.9-15.9); WHITE BLOOD COUNT 9.5 K/mm3 (4.0-10.0)
[2018-10-19 07:21] LABS: ALBUMIN 2.9 g/dl (3.4-5.0); ALK PHOS 76 U/L (45-117); ANION GAP 5 MMOL/L (8-16); BILIRUBIN,TOTAL 0.7 mg/dL (0.2-1); BLOOD UREA NITROGEN 44 mg/dL (7-18); CALCIUM 7.8 mg/dL (8.5-10.1); CHLORIDE 91 mmol/L (98-107); CO2 41 mmol/L (21-32); CREATININE 1.4 mg/dL (0.55-1.3); GLUCOSE,RANDOM 215 mg/dL (74-106); POTASSIUM 4.9 mmol/L (3.5-5.1); SGOT/AST 14 U/L (15-37); SGPT/ALT 52 U/L (13-61); SODIUM 137 mmol/L (136-145); TOT PROT 6.2 g/dl (6.4-8.2)
[2018-10-19] MEDS ORDERED: INSULIN SLIDING SCALE (NOVOLOG) 1 VIAL SQ ONE (07:59)
[2018-10-19] MEDS ORDERED: INSULIN (LEVEMIR) 100 UNITS/ML UNITS SQ ONE (07:59)
--- NOTE | 2018-10-19 10:32 | PN ---
Progress Note, Physician History of Present Illness: Pt w/o CP, SOB, palpitations, abd pain. Pt is asking for crackers and coffee -always - Current Medication List Current Medications: Active Medications Albuterol Sulfate (Ventolin 0.083% Nebulizer Soln -) 1 amp NEB Q6H PRN PRN Reason: SHORT OF BREATH/WHEEZING Last Admin: 10/17/18 00:26 Dose: 1 amp Aspirin (Ecotrin -) 81 mg PO DAILY [facility] Last Admin: 10/18/18 10:44 Dose: 81 mg Budesonide/Formoterol Fumarate (Symbicort 160/4.5mcg -) 2 puff IH BID [facility] Last Admin: 10/18/18 22:16 Dose: 2 puff Emollient Ointment (Aquaphor -) 1 applic TP BID [facility] Last Admin: 10/18/18 22:15 Dose: 1 applic Heparin Sodium (Porcine) (Heparin -) 5,000 unit SQ BID [facility] Last Admin: 10/18/18 22:13 Dose: 5,000 unit Insulin Aspart (Novolog Vial Sliding Scale -) 1 vial SQ [facility]; Protocol Last Admin: 10/19/18 06:35 Dose: 4 units Lidocaine (Lidoderm Patch -) 1 patch TP DAILY [facility] Last Admin: 10/18/18 10:43 Dose: 1 patch Methylprednisolone Sodium Succinate (Solu-Medrol -) 20 mg IVPUSH BID [facility] Last Admin: 10/18/18 22:16 Dose: 20 mg Miscellaneous (Lidoderm Patch Removal) 1 each MC DAILY@2200 [facility] Last Admin: 10/18/18 22:30 Dose: Not Given Nystatin (Mycostatin Cream -) 1 applic TP BID [facility] Last Admin: 10/18/18 22:15 Dose: 1 applic Nystatin/Triamcinolone Acetonide (Mycolog Ii Ointment -) 1 applic TP BID [facility] Last Admin: 10/18/18 22:15 Dose: 1 applic Pantoprazole Sodium (Protonix -) 40 mg PO DAILY [facility] Last Admin: 10/18/18 10:43 Dose: 40 mg Polyethylene Glycol (Miralax (For Daily Use) -) 17 gm PO BID [facility] Last Admin: 10/18/18 22:15 Dose: Not Given Tiotropium [place] (Spiriva Respimat) 2 puff IH DAILY [facility] Last Admin: 10/18/18 10:45 Dose: 2 puff Torsemide (Demadex -) 20 mg PO DAILY [facility] Last Admin: 10/18/18 10:43 Dose: 20 mg - Objective Vital Signs: Vital Signs Temperature 97.9 F 10/19/18 06:39 Pulse Rate 62 10/19/18 06:39 Respiratory Rate 18 10/19/18 06:39 Blood Pressure 151/62 10/19/18 06:39 O2 Sat by Pulse Oximetry (%) 96 10/19/18 08:19 Constitutional: Yes: No Distress, Calm Cardiovascular: Yes: Regular Rate and Rhythm, S1, S2 Respiratory: Yes: Regular, Rhonchi (minimal, scattered), Other (coarse BS at bases) Gastrointestinal: Yes: Normal Bowel Sounds, Soft, Abdomen, Obese. No: Tenderness Edema: LLE: 1+, RLE: 1+ Neurological: Yes: Alert, Oriented Labs: CBC, BMP 10/19/18 05:45 10/19/18 05:45 INR, PTT INR 1.24 (0.83-1.09) H 10/15/18 06:00 Problem List - Problems (1) THERESA (acute kidney injury) Code(s): N17.9 - ACUTE KIDNEY FAILURE, UNSPECIFIED (2) Elevated LFTs Code(s): R94.5 - ABNORMAL RESULTS OF LIVER FUNCTION STUDIES (3) Bradycardia Code(s): R00.1 - BRADYCARDIA, UNSPECIFIED (4) Anemia Code(s): D64.9 - ANEMIA, UNSPECIFIED (5) MARTIN on CPAP Code(s): G47.33 - OBSTRUCTIVE SLEEP APNEA (ADULT) (PEDIATRIC); Z99.89 - DEPENDENCE ON OTHER ENABLING MACHINES AND DEVICES (6) CHF (congestive heart failure) Code(s): I50.9 - HEART FAILURE, UNSPECIFIED (7) COPD with acute exacerbation Code(s): J44.1 - CHRONIC OBSTRUCTIVE PULMONARY DISEASE W (ACUTE) EXACERBATION (8) CVA (cerebral vascular accident) Code(s): I63.9 - CEREBRAL INFARCTION, UNSPECIFIED (9) Cellulitis of both lower extremities Code(s): L03.115 - CELLULITIS OF RIGHT LOWER LIMB; L03.116 - CELLULITIS OF LEFT LOWER LIMB (10) Diabetes mellitus Code(s): E11.9 - TYPE 2 DIABETES MELLITUS WITHOUT COMPLICATIONS (11) Elevated troponin I level Code(s): R74.8 - ABNORMAL LEVELS OF OTHER SERUM ENZYMES (12) Rectal bleeding Code(s): K62.5 - HEMORRHAGE OF ANUS AND RECTUM (13) CRF (chronic renal failure) Code(s): N18.9 - CHRONIC KIDNEY DISEASE, UNSPECIFIED (14) Chronic renal disease Code(s): N18.9 - CHRONIC KIDNEY DISEASE, UNSPECIFIED Assessment/Plan Stable H/H. Improving LFT's For EGD and colonoscopy on Monday. Admitted to Telemetry. Pt was found to have capacity for consent for medical procedure. AM Labs
--- NOTE | 2018-10-19 10:35 | PN ---
Progress Note (short form) - Note Progress Note: s: no cp sob palps dizzy o: Vital Signs Period Temp Pulse Resp BP Sys/Mullen Pulse Ox Last 24 Hr 97.9 F-98.1 F 57-62 18-18 145-157/54-74 96-99 Constitutional: Yes: No Distress, Calm Eyes: Yes: Conjunctiva Clear, Neck: Yes: Supple, Trachea Midline Respiratory: Yes: cta bl nl eff Gastrointestinal: Yes: Normal Bowel Sounds, Soft Cardiovascular: Yes: Regular Rate and Rhythm JVD: No Carotid Bruit: No Heart Sounds: Yes: S1, S2 Extremities: Yes: Erythema, Other (erythema bilateral feet and ankles with weeping from wounds) Edema: trace/1+ le edema bl Peripheral Pulses: 1+ Left Doralis Pedis, 1+ Right Dorsalis Pedis Integumentary: no jaundice diaphoresis [id number] Current Medications Generic Name Dose Route Start Last Admin Trade Name Freq PRN Reason Stop Dose Admin Albuterol Sulfate 1 amp 10/09/18 20:38 10/17/18 00:26 Ventolin 0.083% Nebulizer Soln - NEB 1 amp Q6H PRN Administration SHORT OF BREATH/WHEEZING Aspirin 81 mg 10/10/18 10:00 10/18/18 10:44 Ecotrin - PO 81 mg DAILY [facility] Administration Budesonide/Formoterol Fumarate 2 puff 10/09/18 22:00 10/18/18 22:16 Symbicort 160/4.5mcg - IH 2 puff BID [facility] Administration Emollient Ointment 1 applic 10/09/18 22:00 10/18/18 22:15 Aquaphor - TP 1 applic BID [facility] Administration Heparin Sodium (Porcine) 5,000 unit 10/11/18 22:30 10/18/18 22:13 Heparin - SQ 5,000 unit BID [facility] Administration Insulin Aspart 1 vial 10/09/18 22:00 10/19/18 06:35 Novolog Vial Sliding Scale - SQ 4 units ACHS [facility] Administration Protocol Lidocaine 1 patch 10/10/18 10:00 10/18/18 10:43 Lidoderm Patch - TP 1 patch DAILY [facility] Administration Methylprednisolone Sodium Succinate 20 mg 10/14/18 08:45 10/18/18 22:16 Solu-Medrol - IVPUSH 20 mg BID [facility] Administration Miscellaneous 1 each 10/09/18 22:00 10/18/18 22:30 Lidoderm Patch Removal MC Not Given DAILY@2200 [facility] Nystatin 1 applic 10/09/18 22:00 10/18/18 22:15 Mycostatin Cream - TP 1 applic BID [facility] Administration Nystatin/Triamcinolone Acetonide 1 applic 10/09/18 22:00 10/18/18 22:15 Mycolog Ii Ointment - TP 1 applic BID [facility] Administration Pantoprazole Sodium 40 mg 10/14/18 15:15 10/18/18 10:43 Protonix - PO 40 mg DAILY [facility] Administration Polyethylene Glycol 17 gm 10/14/18 22:00 10/18/18 22:15 Miralax (For Daily Use) - PO Not Given BID [facility] Tiotropium [place] 2 puff 10/10/18 10:00 10/18/18 10:45 Spiriva Respimat IH 2 puff DAILY [facility] Administration Torsemide 20 mg 10/13/18 10:00 10/18/18 10:43 Demadex - PO 20 mg DAILY [facility] Administration CBC, BMP 10/19/18 05:45 10/19/18 05:45 echo 12/2016: nl lv/rv, mild lae, mild mr, mild-mod tr, possible mild as, mild phtn exercise mibi 01/02: no ischemia at 80% mphr EKG: sinus, LBBB, mobitz 1 (similar to prior EKGs) a/p: 68M h/o CVA, HTN, HLD, COPD (on 3L O2), CKD, DM, TIA, chronic diastolic hf /venous insufficiency, 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 bradycardia, Abnormal EKG, mobitz 1, LBBB: - chronic findings, has had prior event monitors in clinic showing mobitz 1 without significant pauses - bradycardia likely in setting of hyperkalemia, appears to have improved with correction of K - avoid AV arsh blocking agents elevated trop - borderline trop level with flat trend in setting of THERESA - no chest pain - not c/w acs COPD - seems stable presently chronic venous insuff/LE edema, recurrent cellulitis: - manage per primary PAD: -prior h/o left fem-pop bypass, cont asa, statin. no clear indication for plavix, stopped now, especially in setting of anemia. chronic diastolic CHF -echoes have been unremarkable or very TDS in past, most recent 12/2016 was unremarkable - cont po torsemide THERESA - improving, renal consulted htn: -stable, controlled hld: -cont statin h/o TIA (2003): -on ASA, statin for sec prevention, cont same anemia: -no clear indication for plavix, so stopped now -he is on asa for PAD, can be held temporarily if needed -no cardiac contraindications to egd/foc if needed
[2018-10-19] MEDS: BUDESONIDE/FORMETEROL FUMARATE 160/4.5 mcg INHALER IH SCH ×2 (10:49→22:49)
[2018-10-19] MEDS: methylPREDNISolone NA SUCC 40 MG/1 ML VIAL IVPUSH SCH ×2 (11:31→22:48)
[2018-10-19] MEDS: HEPARIN NA (PORCINE) 5,000 UNITS/ML 1ML VIAL SQ SCH ×2 (11:32→22:46)
[2018-10-19] MEDS: LIDOCAINE 5% TOPICAL PATCH TP SCH (11:33)
[2018-10-19] MEDS: TORSEMIDE 20 MG TABLET (FP) PO SCH (11:33)
[2018-10-19] MEDS: ASPIRIN COATED 81 MG TABLET.EC PO SCH (11:33)
[2018-10-19] MEDS: PANTOPRAZOLE 20 MG TABLET (FP) PO SCH (11:33)
[2018-10-19] MEDS: TIOTROPIUM BROMIDE 2.5 MCG (SPIRIVA) RESPIMAT INHALER IH SCH (11:34)
[2018-10-19] MEDS: POLYETHYLENE GLYCOL 3350 119 GM BTL PO SCH ×2 (11:34→22:46)
[2018-10-19] MEDS: NYSTATIN/TRIAMCINOLONE TOPICAL OINTMENT 15 GM TUBE TP SCH ×2 (11:38→22:47)
[2018-10-19] MEDS: NYSTATIN 100,000 UNIT/GM TOPICAL CREAM 15 GM TUBE TP SCH ×2 (11:38→22:47)
[2018-10-19] MEDS: MINERAL OIL/PET HY-PHL TOPICAL OINTMENT 454 GM JAR TP SCH ×2 (11:44→22:45)
--- NOTE | 2018-10-19 12:02 | PN ---
Progress Note (short form) - Note Progress Note: Renal follow up for THERESA on CKD Pt seen and examined at the bedside awake and alert on BIPAP no acute complaints making urine Vital Signs Temperature 97.9 F 10/19/18 06:39 Pulse Rate 62 10/19/18 06:39 Respiratory Rate 18 10/19/18 06:39 Blood Pressure 151/62 10/19/18 06:39 O2 Sat by Pulse Oximetry (%) 96 10/19/18 08:19 Intake & Output 10/16/18 10/17/18 10/18/18 10/19/18 23:59 23:59 23:59 23:59 Intake Total 980 2200 1970 800 Output Total 1350 2800 Balance 980 850 -830 800 NAD + edema in LE CBC, BMP 10/19/18 05:45 10/19/18 05:45 Current Medications Albuterol Sulfate (Ventolin 0.083% Nebulizer Soln -) 1 amp NEB Q6H PRN PRN Reason: SHORT OF BREATH/WHEEZING Last Admin: 10/17/18 00:26 Dose: 1 amp Aspirin (Ecotrin -) 81 mg PO DAILY [facility] Last Admin: 10/19/18 11:33 Dose: 81 mg Budesonide/Formoterol Fumarate (Symbicort 160/4.5mcg -) 2 puff IH BID [facility] Last Admin: 10/18/18 22:16 Dose: 2 puff Emollient Ointment (Aquaphor -) 1 applic TP BID [facility] Last Admin: 10/19/18 11:44 Dose: 1 applic Heparin Sodium (Porcine) (Heparin -) 5,000 unit SQ BID [facility] Last Admin: 10/19/18 11:32 Dose: 5,000 unit Insulin Aspart (Novolog Vial Sliding Scale -) 1 vial SQ ACHS [facility]; Protocol Last Admin: 10/19/18 11:42 Dose: 6 units Lidocaine (Lidoderm Patch -) 1 patch TP DAILY [facility] Last Admin: 10/19/18 11:33 Dose: 1 patch Methylprednisolone Sodium Succinate (Solu-Medrol -) 20 mg IVPUSH BID [facility] Last Admin: 10/19/18 11:31 Dose: 20 mg Miscellaneous (Lidoderm Patch Removal) 1 each MC DAILY@2200 [facility] Last Admin: 10/18/18 22:30 Dose: Not Given Nystatin (Mycostatin Cream -) 1 applic TP BID [facility] Last Admin: 10/19/18 11:38 Dose: 1 applic Nystatin/Triamcinolone Acetonide (Mycolog Ii Ointment -) 1 applic TP BID [facility] Last Admin: 10/19/18 11:38 Dose: 1 applic Pantoprazole Sodium (Protonix -) 40 mg PO DAILY [facility] Last Admin: 10/19/18 11:33 Dose: 40 mg Polyethylene Glycol (Miralax (For Daily Use) -) 17 gm PO BID [facility] Last Admin: 10/19/18 11:34 Dose: 17 gm Tiotropium [place] (Spiriva Respimat) 2 puff IH DAILY [facility] Last Admin: 10/19/18 11:34 Dose: 2 puff Torsemide (Demadex -) 20 mg PO DAILY [facility] Last Admin: 10/19/18 11:33 Dose: 20 mg 68 year old gentleman with hx of CKD, MARTIN, COPD, CVA, DM who was sent to the ED from [place] for hyperkalemia and found to have THERESA And acute liver injury. #THERESA on CKD likely due to intravascular volume depletion #Abnormal LFT's/Acute liver injury #Chronic LE edema #Anemia Renal function stable at this time Would trend BUN/Cr and electrolytes over the weekend while getting bowel prep as pt may develop volume depletion as he is also getting oral torsemide for colonoscopy on Monday no need for YASMINE as hgb > 10 Heme following regarding anemia. Thank you Kartik Escobedo DO
--- NOTE | 2018-10-19 15:12 | PN ---
Progress Note (short form) - Note Progress Note: PULMONARY Breathing about the same. VSS Gen: NAD at rest Heart: RRR Lung: decreased breath sounds at the bases Abd: soft, nontender Ext: + edema LABS/MEDS/NOTES/IMAGES REVIEWED A/P s/p Fall Bradycardia HTN DM COPD Chronic Hypoxic Respiratory Failure PAD h/o CVA Elevated LFTs Anemia - inhaled bronchodilators - O2 to keep Spo2 >90% - agree with prophylactic steroids prior to endoscopic procedures - DVT prophylaxis - no pulmonary contraindications for planned endoscopies Ted BUTT MD
[2018-10-19] MEDS: ALBUTEROL SO4 0.083% IH SOL 2.5 MG/3 ML VIAL.NEB. NEB PRN (19:45)
[2018-10-19] MEDS: LIDOCAINE PATCH REMOVAL MC SCH (22:46)
[2018-10-20] MEDS: INSULIN SLIDING SCALE (NOVOLOG) 1 VIAL SQ SCH ×4 (06:18→22:26)
[2018-10-20 07:34] LABS: HEMATOCRIT 32.9 % (35.4-49); HEMOGLOBIN 9.8 GM/dL (11.7-16.9); MCH 23.7 pg (25.7-33.7); MCHC 29.9 g/dl (32.0-35.9); MEAN CELL VOLUME 79.2 fl (80-96); MEAN PLT VOLUME 8.1 fl (7.5-11.1); PLATELET COUNT 195 K/MM3 (134-434); RBC 4.15 M/mm3 (4.00-5.60); RDW 19.2 % (11.9-15.9); WHITE BLOOD COUNT 10.8 K/mm3 (4.0-10.0)
[2018-10-20 08:43] LABS: ALK PHOS 69 U/L (45-117); ANION GAP 4 MMOL/L (8-16); BILIRUBIN,TOTAL 0.6 mg/dL (0.2-1); BLOOD UREA NITROGEN 45 mg/dL (7-18); CALCIUM 7.9 mg/dL (8.5-10.1); CHLORIDE 93 mmol/L (98-107); CO2 43 mmol/L (21-32); CREATININE 1.4 mg/dL (0.55-1.3); GLUCOSE,RANDOM 124 mg/dL (74-106); SGOT/AST 13 U/L (15-37); SGPT/ALT 40 U/L (13-61); SODIUM 140 mmol/L (136-145); TOT PROT 5.9 g/dl (6.4-8.2)
[2018-10-20] MEDS ORDERED: PEG3350/SOD SULF,BICARB,CL/KCL 4,000 ML SOLN.RECON PO ONE (09:00)
[2018-10-20] MEDS: HEPARIN NA (PORCINE) 5,000 UNITS/ML 1ML VIAL SQ SCH ×2 (10:00→22:25)
[2018-10-20] MEDS: methylPREDNISolone NA SUCC 40 MG/1 ML VIAL IVPUSH SCH ×2 (10:00→22:25)
[2018-10-20] MEDS: PANTOPRAZOLE 20 MG TABLET (FP) PO SCH (10:00)
[2018-10-20] MEDS: ASPIRIN COATED 81 MG TABLET.EC PO SCH (10:01)
[2018-10-20] MEDS: TIOTROPIUM BROMIDE 2.5 MCG (SPIRIVA) RESPIMAT INHALER IH SCH (10:01)
[2018-10-20] MEDS: BUDESONIDE/FORMETEROL FUMARATE 160/4.5 mcg INHALER IH SCH ×2 (10:01→22:26)
[2018-10-20] MEDS: LIDOCAINE 5% TOPICAL PATCH TP SCH (10:02)
[2018-10-20] MEDS: MINERAL OIL/PET HY-PHL TOPICAL OINTMENT 454 GM JAR TP SCH (10:05)
[2018-10-20] MEDS: NYSTATIN 100,000 UNIT/GM TOPICAL CREAM 15 GM TUBE TP SCH ×2 (10:06→22:26)
[2018-10-20] MEDS: NYSTATIN/TRIAMCINOLONE TOPICAL OINTMENT 15 GM TUBE TP SCH ×2 (10:07→22:25)
[2018-10-20] MEDS: POLYETHYLENE GLYCOL 3350 119 GM BTL PO SCH (10:07)
[2018-10-20] MEDS: TORSEMIDE 20 MG TABLET (FP) PO SCH (10:07)
[2018-10-20] MEDS: ALBUTEROL SO4 0.083% IH SOL 2.5 MG/3 ML VIAL.NEB. NEB PRN (10:32)
--- NOTE | 2018-10-20 11:39 | PN ---
Progress Note (short form) - Note Progress Note: s: no cp sob palps dizzy o: Vital Signs Period Temp Pulse Resp BP Sys/Mullen Pulse Ox Last 24 Hr 97 F-97.8 F 49-68 20-20 129-174/59-79 97-99 Constitutional: Yes: No Distress, Calm Eyes: Yes: Conjunctiva Clear, Neck: Yes: Supple, Trachea Midline Respiratory: Yes: cta bl nl eff Gastrointestinal: Yes: Normal Bowel Sounds, Soft Cardiovascular: Yes: Regular Rate and Rhythm JVD: No Carotid Bruit: No Heart Sounds: Yes: S1, S2 Extremities: Yes: Erythema, Other (erythema bilateral feet and ankles with weeping from wounds) Edema: trace/1+ le edema bl Peripheral Pulses: 1+ Left Doralis Pedis, 1+ Right Dorsalis Pedis Integumentary: no jaundice diaphoresis aaox3 Current Medications Generic Name Dose Route Start Last Admin Trade Name Freq PRN Reason Stop Dose Admin Albuterol Sulfate 1 amp 10/09/18 20:38 10/20/18 10:32 Ventolin 0.083% Nebulizer Soln - NEB 1 amp Q6H PRN Administration SHORT OF BREATH/WHEEZING Aspirin 81 mg 10/10/18 10:00 10/20/18 10:01 Ecotrin - PO 81 mg DAILY RAJESH Administration Budesonide/Formoterol Fumarate 2 puff 10/09/18 22:00 10/20/18 10:01 Symbicort 160/4.5mcg - IH 2 puff BID RAJESH Administration Emollient Ointment 1 applic 10/09/18 22:00 10/20/18 10:05 Aquaphor - TP 1 applic BID RAJESH Administration Heparin Sodium (Porcine) 5,000 unit 10/11/18 22:30 10/20/18 10:00 Heparin - SQ 5,000 unit BID RAJESH Administration Insulin Aspart 1 vial 10/09/18 22:00 10/20/18 10:10 Novolog Vial Sliding Scale - SQ Not Given ACHS [facility] Protocol Lidocaine 1 patch 10/10/18 10:00 10/20/18 10:02 Lidoderm Patch - TP 1 patch DAILY RAJESH Administration Methylprednisolone Sodium Succinate 20 mg 10/14/18 08:45 10/20/18 10:00 Solu-Medrol - IVPUSH 20 mg BID RAJESH Administration Miscellaneous 1 each 10/09/18 22:00 10/19/18 22:46 Lidoderm Patch Removal MC 1 each DAILY@2200 RAJESH Administration Nystatin 1 applic 10/09/18 22:00 10/20/18 10:06 Mycostatin Cream - TP 1 applic BID RAJESH Administration Nystatin/Triamcinolone Acetonide 1 applic 10/09/18 22:00 10/20/18 10:07 Mycolog Ii Ointment - TP 1 applic BID RAJESH Administration Pantoprazole Sodium 40 mg 10/14/18 15:15 10/20/18 10:00 Protonix - PO 40 mg DAILY RAJESH Administration Polyethylene Glycol 17 gm 10/14/18 22:00 10/20/18 10:07 Miralax (For Daily Use) - PO 17 gm BID RAJESH Administration Tiotropium [place] 2 puff 10/10/18 10:00 10/20/18 10:01 Spiriva Respimat IH 2 puff DAILY RAJESH Administration Torsemide 20 mg 10/13/18 10:00 10/20/18 10:07 Demadex - PO 20 mg DAILY RAJESH Administration CBC, BMP 10/20/18 06:00 10/20/18 06:00 echo 12/2016: nl lv/rv, mild lae, mild mr, mild-mod tr, possible mild as, mild phtn exercise mibi 01/02: no ischemia at 80% mphr EKG: sinus, LBBB, mobitz 1 (similar to prior EKGs) a/p: 68M h/o CVA, HTN, HLD, COPD (on 3L O2), CKD, DM, TIA, chronic diastolic hf /venous insufficiency, 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 bradycardia, Abnormal EKG, mobitz 1, LBBB: - chronic findings, has had prior event monitors in clinic showing mobitz 1 without significant pauses - bradycardia likely in setting of hyperkalemia, appears to have improved with correction of K - avoid AV arsh blocking agents elevated trop - borderline trop level with flat trend in setting of THERESA - no chest pain - not c/w acs COPD - seems stable presently chronic venous insuff/LE edema, recurrent cellulitis: - manage per primary PAD: -prior h/o left fem-pop bypass, cont asa, statin. no clear indication for plavix, stopped now, especially in setting of anemia. chronic diastolic CHF -echoes have been unremarkable or very TDS in past, most recent 12/2016 was unremarkable - cont po torsemide THERESA - improving, renal consulted htn: -stable, controlled hld: -cont statin h/o TIA (2003): -on ASA, statin for sec prevention, cont same anemia: -no clear indication for plavix, so stopped now -he is on asa for PAD, can be held temporarily if needed -no cardiac contraindications to egd/foc if needed
--- NOTE | 2018-10-20 15:24 | PN ---
Progress Note, Physician History of Present Illness: Pt w/o CP, SOB, palpitations, abd pain. Pt's is at bedside. - Current Medication List Current Medications: Active Medications Albuterol Sulfate (Ventolin 0.083% Nebulizer Soln -) 1 amp NEB Q6H PRN PRN Reason: SHORT OF BREATH/WHEEZING Last Admin: 10/20/18 10:32 Dose: 1 amp Aspirin (Ecotrin -) 81 mg PO DAILY [facility] Last Admin: 10/20/18 10:01 Dose: 81 mg Budesonide/Formoterol Fumarate (Symbicort 160/4.5mcg -) 2 puff IH BID [facility] Last Admin: 10/20/18 10:01 Dose: 2 puff Emollient Ointment (Aquaphor -) 1 applic TP BID [facility] Last Admin: 10/20/18 10:05 Dose: 1 applic Heparin Sodium (Porcine) (Heparin -) 5,000 unit SQ BID [facility] Last Admin: 10/20/18 10:00 Dose: 5,000 unit Insulin Aspart (Novolog Vial Sliding Scale -) 1 vial SQ [facility]; Protocol Last Admin: 10/20/18 10:10 Dose: Not Given Lidocaine (Lidoderm Patch -) 1 patch TP DAILY [facility] Last Admin: 10/20/18 10:02 Dose: 1 patch Methylprednisolone Sodium Succinate (Solu-Medrol -) 20 mg IVPUSH BID [facility] Last Admin: 10/20/18 10:00 Dose: 20 mg Miscellaneous (Lidoderm Patch Removal) 1 each MC DAILY@2200 [facility] Last Admin: 10/19/18 22:46 Dose: 1 each Nystatin (Mycostatin Cream -) 1 applic TP BID [facility] Last Admin: 10/20/18 10:06 Dose: 1 applic Nystatin/Triamcinolone Acetonide (Mycolog Ii Ointment -) 1 applic TP BID [facility] Last Admin: 10/20/18 10:07 Dose: 1 applic Pantoprazole Sodium (Protonix -) 40 mg PO DAILY [facility] Last Admin: 10/20/18 10:00 Dose: 40 mg Polyethylene Glycol (Miralax (For Daily Use) -) 17 gm PO BID [facility] Last Admin: 10/20/18 10:07 Dose: 17 gm Tiotropium [place] (Spiriva Respimat) 2 puff IH DAILY [facility] Last Admin: 10/20/18 10:01 Dose: 2 puff Torsemide (Demadex -) 20 mg PO DAILY RAJESH Last Admin: 10/20/18 10:07 Dose: 20 mg - Objective Vital Signs: Vital Signs Temperature 97.4 F L 10/20/18 10:00 Pulse Rate 59 L 10/20/18 10:00 Respiratory Rate 20 10/20/18 10:00 Blood Pressure 143/66 10/20/18 10:00 O2 Sat by Pulse Oximetry (%) 91 L 10/20/18 14:37 Constitutional: Yes: No Distress, Calm Cardiovascular: Yes: Regular Rate and Rhythm, S1, S2 Respiratory: Yes: Regular, CTA Bilaterally, Other (coarse at bases) Gastrointestinal: Yes: Normal Bowel Sounds, Soft, Abdomen, Obese. No: Tenderness Edema: LLE: 2+, RLE: 2+ Neurological: Yes: Alert, Oriented Labs: CBC, BMP 10/20/18 06:00 10/20/18 06:00 INR, PTT INR 1.24 (0.83-1.09) H 10/15/18 06:00 Problem List - Problems (1) THERESA (acute kidney injury) Code(s): N17.9 - ACUTE KIDNEY FAILURE, UNSPECIFIED (2) Elevated LFTs Code(s): R94.5 - ABNORMAL RESULTS OF LIVER FUNCTION STUDIES (3) Bradycardia Code(s): R00.1 - BRADYCARDIA, UNSPECIFIED (4) Anemia Code(s): D64.9 - ANEMIA, UNSPECIFIED (5) MARTIN on CPAP Code(s): G47.33 - OBSTRUCTIVE SLEEP APNEA (ADULT) (PEDIATRIC); Z99.89 - DEPENDENCE ON OTHER ENABLING MACHINES AND DEVICES (6) CHF (congestive heart failure) Code(s): I50.9 - HEART FAILURE, UNSPECIFIED (7) COPD with acute exacerbation Code(s): J44.1 - CHRONIC OBSTRUCTIVE PULMONARY DISEASE W (ACUTE) EXACERBATION (8) CVA (cerebral vascular accident) Code(s): I63.9 - CEREBRAL INFARCTION, UNSPECIFIED (9) Cellulitis of both lower extremities Code(s): L03.115 - CELLULITIS OF RIGHT LOWER LIMB; L03.116 - CELLULITIS OF LEFT LOWER LIMB (10) Diabetes mellitus Code(s): E11.9 - TYPE 2 DIABETES MELLITUS WITHOUT COMPLICATIONS (11) Elevated troponin I level Code(s): R74.8 - ABNORMAL LEVELS OF OTHER SERUM ENZYMES (12) Rectal bleeding Code(s): K62.5 - HEMORRHAGE OF ANUS AND RECTUM (13) CRF (chronic renal failure) Code(s): N18.9 - CHRONIC KIDNEY DISEASE, UNSPECIFIED (14) Chronic renal disease Code(s): N18.9 - CHRONIC KIDNEY DISEASE, UNSPECIFIED Assessment/Plan Stable H/H, renal function -to monitor For EGD and colonoscopy on Monday. Admitted to Telemetry. Pt was found to have capacity for consent for medical procedure. AM Labs
--- NOTE | 2018-10-20 16:20 | PN ---
GI Progress Note Subjective: GI NOte: Discussed case with Dr Valle. Calixto has been deemed competent to consent to the EGD and colonoscopy so bowel prep was begun today. So far he has drank only 1/3 of the prep. Want crackers. I again told him of the need to fast in order to prep his bowels and the need to complete Gol[employer] today and likely tomorrow until his bowels are clear. - Objective Vital Signs: Vital Signs Temperature 98.1 F 10/20/18 13:20 Pulse Rate 40 L 10/20/18 13:20 Respiratory Rate 18 10/20/18 13:20 Blood Pressure 126/56 L 10/20/18 13:20 O2 Sat by Pulse Oximetry (%) 91 L 10/20/18 14:37 Constitutional: Anxious ...Auscultate: Yes: Hyperactive Bowel Sounds ...Palpate: Yes: Soft, Other (nontender) Labs: CBC, BMP 10/20/18 06:00 10/20/18 06:00 INR, PTT INR 1.24 (0.83-1.09) H 10/15/18 06:00 Assessment/Plan Cleared by cardiology, pulmonary and psych for EGD and colonoscopy in Monday Bowel prep in progress Problem List - Problems (1) Microcytic anemia Code(s): D50.9 - IRON DEFICIENCY ANEMIA, UNSPECIFIED (2) Elevated LFTs Code(s): R94.5 - ABNORMAL RESULTS OF LIVER FUNCTION STUDIES (3) Acute on chronic respiratory failure with hypoxia and hypercapnia Code(s): J96.21 - ACUTE AND CHRONIC RESPIRATORY FAILURE WITH HYPOXIA; J96.22 - ACUTE AND CHRONIC RESPIRATORY FAILURE WITH HYPERCAPNIA (4) COPD (chronic obstructive pulmonary disease) Code(s): J44.9 - CHRONIC OBSTRUCTIVE PULMONARY DISEASE, UNSPECIFIED Qualifiers: COPD type: unspecified COPD Qualified Code(s): J44.9 - Chronic obstructive pulmonary disease, unspecified (5) Diabetes mellitus Code(s): E11.9 - TYPE 2 DIABETES MELLITUS WITHOUT COMPLICATIONS (6) Sepsis Code(s): A41.9 - SEPSIS, UNSPECIFIED ORGANISM (7) Sleep apnea Code(s): G47.30 - SLEEP APNEA, UNSPECIFIED (8) Morbid obesity Code(s): E66.01 - MORBID (SEVERE) OBESITY DUE TO EXCESS CALORIES (9) Fatty liver Code(s): K76.0 - FATTY (CHANGE OF) LIVER, NOT ELSEWHERE CLASSIFIED (10) Gallbladder calculus Code(s): K80.20 - CALCULUS OF GALLBLADDER W/O CHOLECYSTITIS W/O OBSTRUCTION
[2018-10-20] MEDS: BISACODYL 5 MG TABLET.DR (FP) PO SCH (17:11)
[2018-10-20] MEDS: LIDOCAINE PATCH REMOVAL MC SCH (22:25)
[2018-10-21] MEDS: INSULIN SLIDING SCALE (NOVOLOG) 1 VIAL SQ SCH ×4 (06:40→22:35)
[2018-10-21] MEDS: MINERAL OIL/PET HY-PHL TOPICAL OINTMENT 454 GM JAR TP SCH ×3 (06:41→22:32)
[2018-10-21 07:14] LABS: ALK PHOS 75 U/L (45-117); ANION GAP 6 MMOL/L (8-16); BLOOD UREA NITROGEN 36 mg/dL (7-18); CALCIUM 8.4 mg/dL (8.5-10.1); CHLORIDE 93 mmol/L (98-107); CO2 38 mmol/L (21-32); CREATININE 1.2 mg/dL (0.55-1.3); GLUCOSE,RANDOM 166 mg/dL (74-106); POTASSIUM 5.1 mmol/L (3.5-5.1); SGOT/AST 19 U/L (15-37); SGPT/ALT 41 U/L (13-61); SODIUM 137 mmol/L (136-145); TOT PROT 6.1 g/dl (6.4-8.2)
[2018-10-21 07:30] LABS: HEMATOCRIT 35.3 % (35.4-49); HEMOGLOBIN 11.5 GM/dL (11.7-16.9); MCH 25.4 pg (25.7-33.7); MCHC 32.6 g/dl (32.0-35.9); MEAN CELL VOLUME 77.8 fl (80-96); MEAN PLT VOLUME 8.2 fl (7.5-11.1); PLATELET COUNT 172 K/MM3 (134-434); RBC 4.54 M/mm3 (4.00-5.60); RDW 19.4 % (11.9-15.9); WHITE BLOOD COUNT 10.1 K/mm3 (4.0-10.0)
[2018-10-21] MEDS ORDERED: POLYETHYLENE GLYCOL 3350 255 GM BTL PO ONE (09:00)
[2018-10-21] MEDS ORDERED: PT OWN MED DRAWER 7, Y5N ONE ×3 (09:39→21:56)
[2018-10-21] MEDS: BUDESONIDE/FORMETEROL FUMARATE 160/4.5 mcg INHALER IH SCH ×2 (10:14→22:36)
[2018-10-21] MEDS: TIOTROPIUM BROMIDE 2.5 MCG (SPIRIVA) RESPIMAT INHALER IH SCH (10:16)
[2018-10-21] MEDS: methylPREDNISolone NA SUCC 40 MG/1 ML VIAL IVPUSH SCH ×2 (10:16→22:35)
[2018-10-21] MEDS: PANTOPRAZOLE 20 MG TABLET (FP) PO SCH (10:16)
[2018-10-21] MEDS: HEPARIN NA (PORCINE) 5,000 UNITS/ML 1ML VIAL SQ SCH ×2 (10:17→22:34)
[2018-10-21] MEDS: NYSTATIN 100,000 UNIT/GM TOPICAL CREAM 15 GM TUBE TP SCH ×2 (10:17→22:34)
[2018-10-21] MEDS: BISACODYL 5 MG TABLET.DR (FP) PO SCH (10:17)
[2018-10-21] MEDS: NYSTATIN/TRIAMCINOLONE TOPICAL OINTMENT 15 GM TUBE TP SCH ×2 (10:17→22:34)
[2018-10-21] MEDS: TORSEMIDE 20 MG TABLET (FP) PO SCH (10:17)
[2018-10-21] MEDS: LIDOCAINE 5% TOPICAL PATCH TP SCH (10:17)
[2018-10-21] MEDS: ASPIRIN COATED 81 MG TABLET.EC PO SCH (10:17)
--- NOTE | 2018-10-21 10:49 | PN ---
Progress Note (short form) - Note Progress Note: s: no cp sob palps dizzy o: Vital Signs Period Temp Pulse Resp BP Sys/Mullen Pulse Ox Last 24 Hr 97.4 F-98.1 F 40-56 18-28 126-167/56-72 91-99 Constitutional: Yes: No Distress, Calm Eyes: Yes: Conjunctiva Clear, Neck: Yes: Supple, Trachea Midline Respiratory: Yes: cta bl nl eff Gastrointestinal: Yes: Normal Bowel Sounds, Soft Cardiovascular: Yes: Regular Rate and Rhythm JVD: No Carotid Bruit: No Heart Sounds: Yes: S1, S2 Extremities: Yes: Erythema, Other (erythema bilateral feet and ankles with weeping from wounds) Edema: trace/1+ le edema bl Peripheral Pulses: 1+ Left Doralis Pedis, 1+ Right Dorsalis Pedis Integumentary: no jaundice diaphoresis aaox3 Current Medications Generic Name Dose Route Start Last Admin Trade Name Freq PRN Reason Stop Dose Admin Albuterol Sulfate 1 amp 10/09/18 20:38 10/20/18 10:32 Ventolin 0.083% Nebulizer Soln - NEB 1 amp Q6H PRN Administration SHORT OF BREATH/WHEEZING Aspirin 81 mg 10/10/18 10:00 10/21/18 10:17 Ecotrin - PO 81 mg DAILY RAJESH Administration Bisacodyl 20 mg 10/20/18 18:00 10/21/18 10:17 Dulcolax - PO 10/22/18 17:59 20 mg DAILY RAJESH Administration Budesonide/Formoterol Fumarate 2 puff 10/09/18 22:00 10/21/18 10:14 Symbicort 160/4.5mcg - IH 2 puff BID RAJESH Administration Emollient Ointment 1 applic 10/09/18 22:00 10/21/18 06:41 Aquaphor - TP Not Given BID RAJESH Heparin Sodium (Porcine) 5,000 unit 10/11/18 22:30 10/21/18 10:17 Heparin - SQ 5,000 unit BID RAJESH Administration Insulin Aspart 1 vial 10/09/18 22:00 10/21/18 06:40 Novolog Vial Sliding Scale - SQ 2 units ACHS RAJESH Administration Protocol Lidocaine 1 patch 10/10/18 10:00 10/21/18 10:17 Lidoderm Patch - TP 1 patch DAILY RAJESH Administration Methylprednisolone Sodium Succinate 20 mg 10/14/18 08:45 10/21/18 10:16 Solu-Medrol - IVPUSH 20 mg BID RAJESH Administration Miscellaneous 1 each 10/09/18 22:00 10/20/18 22:25 Lidoderm Patch Removal MC 1 each DAILY@2200 RAJESH Administration Nystatin 1 applic 10/09/18 22:00 10/21/18 10:17 Mycostatin Cream - TP 1 applic BID RAJESH Administration Nystatin/Triamcinolone Acetonide 1 applic 10/09/18 22:00 10/21/18 10:17 Mycolog Ii Ointment - TP 1 applic BID RAJESH Administration Pantoprazole Sodium 40 mg 10/14/18 15:15 10/21/18 10:16 Protonix - PO 40 mg DAILY RAJESH Administration Tiotropium [place] 2 puff 10/10/18 10:00 10/21/18 10:16 Spiriva Respimat IH 2 puff DAILY RAJESH Administration Torsemide 20 mg 10/13/18 10:00 10/21/18 10:17 Demadex - PO 20 mg DAILY RAJESH Administration CBC, BMP 10/21/18 06:00 10/21/18 06:00 echo 12/2016: nl lv/rv, mild lae, mild mr, mild-mod tr, possible mild as, mild phtn exercise mibi 01/02: no ischemia at 80% mphr EKG: sinus, LBBB, mobitz 1 (similar to prior EKGs) a/p: 68M h/o CVA, HTN, HLD, COPD (on 3L O2), CKD, DM, TIA, chronic diastolic hf /venous insufficiency, 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 bradycardia, Abnormal EKG, mobitz 1, LBBB: - chronic findings, has had prior event monitors in clinic showing mobitz 1 without significant pauses - bradycardia likely in setting of hyperkalemia, improved with correction of K - avoid AV arsh blocking agents elevated trop - borderline trop level with flat trend in setting of THERESA - no chest pain - not c/w acs COPD - seems stable presently chronic venous insuff/LE edema, recurrent cellulitis: - manage per primary PAD: -prior h/o left fem-pop bypass, cont asa, statin. no clear indication for plavix, stopped now, especially in setting of anemia. chronic diastolic CHF -echoes have been unremarkable or very TDS in past, most recent 12/2016 was unremarkable - cont po torsemide THERESA - improving, renal consulted htn: -stable, controlled hld: -cont statin h/o TIA (2003): -on ASA, statin for sec prevention, cont same anemia: -no clear indication for plavix, so stopped now -he is on asa for PAD, can be held temporarily if needed -no cardiac contraindications to egd/foc
--- NOTE | 2018-10-21 11:48 | PN ---
Progress Note, Physician History of Present Illness: Pt w/o CP, SOB, palpitations, abd pain. Pt is tolerating well bowel prep. - Current Medication List Current Medications: Active Medications Albuterol Sulfate (Ventolin 0.083% Nebulizer Soln -) 1 amp NEB Q6H PRN PRN Reason: SHORT OF BREATH/WHEEZING Last Admin: 10/20/18 10:32 Dose: 1 amp Aspirin (Ecotrin -) 81 mg PO DAILY [facility] Last Admin: 10/21/18 10:17 Dose: 81 mg Bisacodyl (Dulcolax -) 20 mg PO DAILY [facility] Stop: 10/22/18 17:59 Last Admin: 10/21/18 10:17 Dose: 20 mg Budesonide/Formoterol Fumarate (Symbicort 160/4.5mcg -) 2 puff IH BID [facility] Last Admin: 10/21/18 10:14 Dose: 2 puff Emollient Ointment (Aquaphor -) 1 applic TP BID [facility] Last Admin: 10/21/18 06:41 Dose: Not Given Heparin Sodium (Porcine) (Heparin -) 5,000 unit SQ BID [facility] Last Admin: 10/21/18 10:17 Dose: 5,000 unit Insulin Aspart (Novolog Vial Sliding Scale -) 1 vial SQ [facility]; Protocol Last Admin: 10/21/18 06:40 Dose: 2 units Lidocaine (Lidoderm Patch -) 1 patch TP DAILY [facility] Last Admin: 10/21/18 10:17 Dose: 1 patch Methylprednisolone Sodium Succinate (Solu-Medrol -) 20 mg IVPUSH BID [facility] Last Admin: 10/21/18 10:16 Dose: 20 mg Miscellaneous (Lidoderm Patch Removal) 1 each MC DAILY@2200 [facility] Last Admin: 10/20/18 22:25 Dose: 1 each Nystatin (Mycostatin Cream -) 1 applic TP BID [facility] Last Admin: 10/21/18 10:17 Dose: 1 applic Nystatin/Triamcinolone Acetonide (Mycolog Ii Ointment -) 1 applic TP BID [facility] Last Admin: 10/21/18 10:17 Dose: 1 applic Pantoprazole Sodium (Protonix -) 40 mg PO DAILY [facility] Last Admin: 10/21/18 10:16 Dose: 40 mg Tiotropium [place] (Spiriva Respimat) 2 puff IH DAILY [facility] Last Admin: 10/21/18 10:16 Dose: 2 puff Torsemide (Demadex -) 20 mg PO DAILY [facility] Last Admin: 10/21/18 10:17 Dose: 20 mg - Objective Vital Signs: Vital Signs Temperature 97.4 F L 10/20/18 22:00 Pulse Rate 56 L 10/20/18 22:00 Respiratory Rate 28 H 10/20/18 22:00 Blood Pressure 167/72 10/20/18 22:00 O2 Sat by Pulse Oximetry (%) 97 10/21/18 01:06 Constitutional: Yes: No Distress, Calm Cardiovascular: Yes: Regular Rate and Rhythm, S1, S2 Respiratory: Yes: Regular, Other (coarse BS). No: Rales Gastrointestinal: Yes: Normal Bowel Sounds, Soft, Abdomen, Obese. No: Tenderness Edema: LLE: 2+, RLE: 2+ Neurological: Yes: Alert, Oriented Labs: CBC, BMP 10/21/18 06:00 10/21/18 06:00 INR, PTT INR 1.24 (0.83-1.09) H 10/15/18 06:00 Problem List - Problems (1) THERESA (acute kidney injury) Code(s): N17.9 - ACUTE KIDNEY FAILURE, UNSPECIFIED (2) Elevated LFTs Code(s): R94.5 - ABNORMAL RESULTS OF LIVER FUNCTION STUDIES (3) Bradycardia Code(s): R00.1 - BRADYCARDIA, UNSPECIFIED (4) Anemia Code(s): D64.9 - ANEMIA, UNSPECIFIED (5) MARTIN on CPAP Code(s): G47.33 - OBSTRUCTIVE SLEEP APNEA (ADULT) (PEDIATRIC); Z99.89 - DEPENDENCE ON OTHER ENABLING MACHINES AND DEVICES (6) CHF (congestive heart failure) Code(s): I50.9 - HEART FAILURE, UNSPECIFIED (7) COPD with acute exacerbation Code(s): J44.1 - CHRONIC OBSTRUCTIVE PULMONARY DISEASE W (ACUTE) EXACERBATION (8) CVA (cerebral vascular accident) Code(s): I63.9 - CEREBRAL INFARCTION, UNSPECIFIED (9) Cellulitis of both lower extremities Code(s): L03.115 - CELLULITIS OF RIGHT LOWER LIMB; L03.116 - CELLULITIS OF LEFT LOWER LIMB (10) Diabetes mellitus Code(s): E11.9 - TYPE 2 DIABETES MELLITUS WITHOUT COMPLICATIONS (11) Elevated troponin I level Code(s): R74.8 - ABNORMAL LEVELS OF OTHER SERUM ENZYMES (12) Rectal bleeding Code(s): K62.5 - HEMORRHAGE OF ANUS AND RECTUM (13) CRF (chronic renal failure) Code(s): N18.9 - CHRONIC KIDNEY DISEASE, UNSPECIFIED (14) Chronic renal disease Code(s): N18.9 - CHRONIC KIDNEY DISEASE, UNSPECIFIED Assessment/Plan Stable H/H, renal function -to monitor For EGD and colonoscopy on Monday. Admitted to Telemetry. Pt was found to have capacity for consent for medical procedure. AM Labs Case was d/w pt's nurse.
[2018-10-21] MEDS: ALBUTEROL SO4 0.083% IH SOL 2.5 MG/3 ML VIAL.NEB. NEB PRN ×2 (12:00→19:18)
--- NOTE | 2018-10-21 13:59 | PN ---
GI Progress Note Subjective: GI Note: Only completed 3/4 of [employer] so trying Miralax prep today. Stool is still brown. Asking for crackers. I explained why he can't have them and encouraged him to keep drinking. - Objective Vital Signs: Vital Signs Temperature 97.4 F L 10/20/18 22:00 Pulse Rate 56 L 10/20/18 22:00 Respiratory Rate 28 H 10/20/18 22:00 Blood Pressure 167/72 10/20/18 22:00 O2 Sat by Pulse Oximetry (%) 97 10/21/18 01:06 Laboratory Tests 10/14/18 10/20/18 10/20/18 06:30 06:00 06:00 Hgb 8.8 L 9.8 L Potassium 4.0 BUN 45 H Creatinine 1.4 H 10/21/18 10/21/18 06:00 06:00 Hgb 11.5 L Potassium 5.1 BUN 36 H Creatinine 1.2 Constitutional: Anxious ...Auscultate: Yes: Hyperactive Bowel Sounds ...Palpate: Yes: Soft, Other (nontender) Labs: CBC, BMP 10/21/18 06:00 10/21/18 06:00 INR, PTT INR 1.24 (0.83-1.09) H 10/15/18 06:00 Assessment/Plan Cleared by cardiology, pulmonary and psych for EGD and colonoscopy for tomorrow Bowel prep in progress Problem List - Problems (1) Microcytic anemia Code(s): D50.9 - IRON DEFICIENCY ANEMIA, UNSPECIFIED (2) Elevated LFTs Code(s): R94.5 - ABNORMAL RESULTS OF LIVER FUNCTION STUDIES (3) Acute on chronic respiratory failure with hypoxia and hypercapnia Code(s): J96.21 - ACUTE AND CHRONIC RESPIRATORY FAILURE WITH HYPOXIA; J96.22 - ACUTE AND CHRONIC RESPIRATORY FAILURE WITH HYPERCAPNIA (4) COPD (chronic obstructive pulmonary disease) Code(s): J44.9 - CHRONIC OBSTRUCTIVE PULMONARY DISEASE, UNSPECIFIED Qualifiers: COPD type: unspecified COPD Qualified Code(s): J44.9 - Chronic obstructive pulmonary disease, unspecified (5) Diabetes mellitus Code(s): E11.9 - TYPE 2 DIABETES MELLITUS WITHOUT COMPLICATIONS (6) Sepsis Code(s): A41.9 - SEPSIS, UNSPECIFIED ORGANISM (7) Sleep apnea Code(s): G47.30 - SLEEP APNEA, UNSPECIFIED (8) Morbid obesity Code(s): E66.01 - MORBID (SEVERE) OBESITY DUE TO EXCESS CALORIES (9) Fatty liver Code(s): K76.0 - FATTY (CHANGE OF) LIVER, NOT ELSEWHERE CLASSIFIED (10) Gallbladder calculus Code(s): K80.20 - CALCULUS OF GALLBLADDER W/O CHOLECYSTITIS W/O OBSTRUCTION
[2018-10-21] MEDS: LIDOCAINE PATCH REMOVAL MC SCH (22:34)
[2018-10-22] MEDS: INSULIN SLIDING SCALE (NOVOLOG) 1 VIAL SQ SCH ×3 (06:19→17:13)
[2018-10-22 06:42] LABS: HEMATOCRIT 34.3 % (35.4-49); HEMOGLOBIN 10.4 GM/dL (11.7-16.9); MCH 23.8 pg (25.7-33.7); MCHC 30.5 g/dl (32.0-35.9); MEAN CELL VOLUME 78.2 fl (80-96); MEAN PLT VOLUME 8.2 fl (7.5-11.1); PLATELET COUNT 188 K/MM3 (134-434); RBC 4.38 M/mm3 (4.00-5.60); RDW 19.6 % (11.9-15.9); WHITE BLOOD COUNT 8.7 K/mm3 (4.0-10.0)
[2018-10-22 07:08] LABS: ALBUMIN 3.1 g/dl (3.4-5.0); ALK PHOS 75 U/L (45-117); ANION GAP 6 MMOL/L (8-16); BILIRUBIN,TOTAL 0.9 mg/dL (0.2-1); BLOOD UREA NITROGEN 28 mg/dL (7-18); CALCIUM 8.3 mg/dL (8.5-10.1); CHLORIDE 91 mmol/L (98-107); CO2 39 mmol/L (21-32); CREATININE 1.2 mg/dL (0.55-1.3); GLUCOSE,RANDOM 191 mg/dL (74-106); POTASSIUM 4.3 mmol/L (3.5-5.1); SGOT/AST 15 U/L (15-37); SGPT/ALT 34 U/L (13-61); SODIUM 137 mmol/L (136-145); TOT PROT 6.2 g/dl (6.4-8.2)
[2018-10-22] MEDS: ALBUTEROL SO4 0.083% IH SOL 2.5 MG/3 ML VIAL.NEB. NEB PRN (07:30)
[2018-10-22] MEDS: MINERAL OIL/PET HY-PHL TOPICAL OINTMENT 454 GM JAR TP SCH (09:20)
[2018-10-22] MEDS: LIDOCAINE 5% TOPICAL PATCH TP SCH (09:21)
[2018-10-22] MEDS: HEPARIN NA (PORCINE) 5,000 UNITS/ML 1ML VIAL SQ SCH (09:22)
[2018-10-22] MEDS: NYSTATIN/TRIAMCINOLONE TOPICAL OINTMENT 15 GM TUBE TP SCH (09:22)
[2018-10-22] MEDS: NYSTATIN 100,000 UNIT/GM TOPICAL CREAM 15 GM TUBE TP SCH (09:23)
[2018-10-22] MEDS: methylPREDNISolone NA SUCC 40 MG/1 ML VIAL IVPUSH SCH (09:23)
[2018-10-22] MEDS ORDERED: PT OWN MED DRAWER 7, Y5N ONE (09:26)
[2018-10-22] MEDS: TIOTROPIUM BROMIDE 2.5 MCG (SPIRIVA) RESPIMAT INHALER IH SCH (09:27)
[2018-10-22] MEDS: BUDESONIDE/FORMETEROL FUMARATE 160/4.5 mcg INHALER IH SCH (09:27)
[2018-10-22] MEDS: BISACODYL 5 MG TABLET.DR (FP) PO SCH (09:32)
[2018-10-22] MEDS: ASPIRIN COATED 81 MG TABLET.EC PO SCH (09:32)
--- NOTE | 2018-10-22 10:06 | PN ---
Progress Note, Physician Chief Complaint: cellulitis History of Present Illness: denies sob, at his baseline using cpap overnight and still this AM stable leg swelling no cp, palpit - Current Medication List Current Medications: Active Medications Albuterol Sulfate (Ventolin 0.083% Nebulizer Soln -) 1 amp NEB Q6H PRN PRN Reason: SHORT OF BREATH/WHEEZING Last Admin: 10/22/18 07:30 Dose: 1 amp Aspirin (Ecotrin -) 81 mg PO DAILY [facility] Last Admin: 10/22/18 09:32 Dose: Not Given Bisacodyl (Dulcolax -) 20 mg PO DAILY [facility] Stop: 10/22/18 17:59 Last Admin: 10/22/18 09:32 Dose: Not Given Budesonide/Formoterol Fumarate (Symbicort 160/4.5mcg -) 2 puff IH BID [facility] Last Admin: 10/22/18 09:27 Dose: 2 puff Emollient Ointment (Aquaphor -) 1 applic TP BID [facility] Last Admin: 10/22/18 09:20 Dose: 1 applic Heparin Sodium (Porcine) (Heparin -) 5,000 unit SQ BID [facility] Last Admin: 10/22/18 09:22 Dose: Not Given Insulin Aspart (Novolog Vial Sliding Scale -) 1 vial SQ ACHS [facility]; Protocol Last Admin: 10/22/18 06:19 Dose: 4 units Lidocaine (Lidoderm Patch -) 1 patch TP DAILY [facility] Last Admin: 10/22/18 09:21 Dose: 1 patch Methylprednisolone Sodium Succinate (Solu-Medrol -) 20 mg IVPUSH BID [facility] Last Admin: 10/22/18 09:23 Dose: 20 mg Miscellaneous (Lidoderm Patch Removal) 1 each MC DAILY@2200 [facility] Last Admin: 10/21/18 22:34 Dose: 1 each Nystatin (Mycostatin Cream -) 1 applic TP BID [facility] Last Admin: 10/22/18 09:23 Dose: 1 applic Nystatin/Triamcinolone Acetonide (Mycolog Ii Ointment -) 1 applic TP BID [facility] Last Admin: 10/22/18 09:22 Dose: 1 applic Pantoprazole Sodium (Protonix -) 40 mg PO DAILY [facility] Last Admin: 10/21/18 10:16 Dose: 40 mg Tiotropium Royal (Spiriva Respimat) 2 puff IH DAILY [facility] Last Admin: 10/22/18 09:27 Dose: 2 puff Torsemide (Demadex -) 20 mg PO DAILY [facility] Last Admin: 10/21/18 10:17 Dose: 20 mg - Objective Vital Signs: Vital Signs Temperature 98.0 F 10/22/18 06:00 Pulse Rate 55 L 10/22/18 06:00 Respiratory Rate 20 10/22/18 06:00 Blood Pressure 155/65 10/22/18 06:00 O2 Sat by Pulse Oximetry (%) 96 10/22/18 09:32 Constitutional: Yes: Well Nourished, No Distress, Calm Cardiovascular: Yes: Regular Rate and Rhythm, S1, S2. No: JVD (tds obese, bipap on), Gallop, Murmur Respiratory: Yes: Regular, CTA Bilaterally. 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 bradycardia, Abnormal EKG, mobitz 1, LBBB: - chronic findings, has had prior event monitors in clinic showing mobitz 1 without significant pauses - bradycardia likely in setting of hyperkalemia, improved with correction of K - avoid AV arsh blocking agents elevated trop - borderline trop level with flat trend in setting of THERESA - no chest pain - not c/w acs COPD - seems stable presently chronic venous insuff/LE edema, recurrent cellulitis: - manage per primary PAD: -prior h/o left fem-pop bypass, cont asa, statin. no clear indication for plavix, stopped now, especially in setting of anemia. chronic diastolic CHF -echoes have been unremarkable or very TDS in past, most recent 12/2016 was unremarkable - cont po torsemide THERESA - improving, renal consulted htn: -stable, controlled hld: -cont statin h/o TIA (2003): -on ASA, statin for sec prevention, cont same anemia: -no clear indication for plavix, so stopped now -he is on asa for PAD, can be held temporarily if needed -no cardiac contraindications to egd/foc
[2018-10-22] MEDS ORDERED: MIDAZOLAM HCL 2 MG/2 ML SINGLE DOSE VIAL ONE (11:28)
[2018-10-22] MEDS ORDERED: ETOMIDATE 20 MG/10 ML AMPUL IVPUSH ONE (11:29)
[2018-10-22] MEDS ORDERED: LIDOCAINE VISCOUS 2% ORAL/TOP 20 ML UNIT-DOSE CUP ONE (11:31)
[2018-10-22] MEDS ORDERED: TETRACAINE/BENZOCAINE/BUTAMBEN 20 GM SPR TP ONE (11:44)
--- NOTE | 2018-10-22 12:32 | PN ---
Progress Note (short form) - Note Progress Note: GI Procedures Note: Please see EGD and colonoscopy reports. EGD revealed nonbleeding gastritis. Colonoscopy revealed divertculosis and led to the removal of a distal transverse colon polyp. The source of his rectal bleeding was hemorrhoidal. NO GI objections to discharge on Pantoprazole. Problem List - Problems (1) Microcytic anemia Code(s): D50.9 - IRON DEFICIENCY ANEMIA, UNSPECIFIED (2) Elevated LFTs Code(s): R94.5 - ABNORMAL RESULTS OF LIVER FUNCTION STUDIES (3) Acute on chronic respiratory failure with hypoxia and hypercapnia Code(s): J96.21 - ACUTE AND CHRONIC RESPIRATORY FAILURE WITH HYPOXIA; J96.22 - ACUTE AND CHRONIC RESPIRATORY FAILURE WITH HYPERCAPNIA (4) COPD (chronic obstructive pulmonary disease) Code(s): J44.9 - CHRONIC OBSTRUCTIVE PULMONARY DISEASE, UNSPECIFIED Qualifiers: COPD type: unspecified COPD Qualified Code(s): J44.9 - Chronic obstructive pulmonary disease, unspecified (5) Diabetes mellitus Code(s): E11.9 - TYPE 2 DIABETES MELLITUS WITHOUT COMPLICATIONS (6) Sepsis Code(s): A41.9 - SEPSIS, UNSPECIFIED ORGANISM (7) Sleep apnea Code(s): G47.30 - SLEEP APNEA, UNSPECIFIED (8) Morbid obesity Code(s): E66.01 - MORBID (SEVERE) OBESITY DUE TO EXCESS CALORIES (9) Fatty liver Code(s): K76.0 - FATTY (CHANGE OF) LIVER, NOT ELSEWHERE CLASSIFIED (10) Gallbladder calculus Code(s): K80.20 - CALCULUS OF GALLBLADDER W/O CHOLECYSTITIS W/O OBSTRUCTION
[2018-10-22] MEDS: TORSEMIDE 20 MG TABLET (FP) PO SCH (14:30)
[2018-10-22] MEDS: PANTOPRAZOLE 20 MG TABLET (FP) PO SCH (14:30)
--- NOTE | 2018-10-22 16:18 | DS ---
Physical Examination Vital Signs: Vital Signs Temperature 97.4 F L 10/22/18 14:00 Pulse Rate 56 L 10/22/18 14:00 Respiratory Rate 20 10/22/18 14:00 Blood Pressure 118/50 L 10/22/18 14:00 O2 Sat by Pulse Oximetry (%) 96 10/22/18 13:00 Findings/Remarks: Pt is s/p EGD, Colonoscopy, toleraed both well; he tolerated lunch well. Pt w/o SOB, CP, palpitations, abd pain. Constitutional: Yes: No Distress, Calm Cardiovascular: Yes: Regular Rate and Rhythm, S1, S2 Respiratory: Yes: Regular, CTA Bilaterally (but coarse BS at bases). No: Rales Gastrointestinal: Yes: Normal Bowel Sounds, Soft. No: Tenderness Edema: LLE: 2+, RLE: 2+ Neurological: Yes: Alert, Oriented Labs: CBC, BMP 10/22/18 05:30 10/22/18 05:30 Discharge Summary Reason For Visit: ACUTE KIDNEY INJURY,ANEMIA,HYPERKALEMIA Current Active Problems [id number] kidney injury (Acute) Bradycardia (Acute) Elevated LFTs (Acute) Elevated troponin I level (Acute) Fatty liver (Acute) Gallbladder calculus (Acute) MARTIN on CPAP (Acute) Rectal bleeding (Acute) Anemia (Chronic) Hospital Course: Pt was transferred from [facility] for evelated potassium (6). In ER he was found to be in THERESA, found to have elevated LFT, CE, bradycardia; pt also with GIB at NE. Pt was admitted to Telemetry. Pt was seen by Cardio (Dr. Holder), Renal (Gregg), GI( Dr. Tidwell), Pulmonary (Dr. Moore), Heme (Dr. Nieto). Pt was started on light rate IVF with improvement in renal function and CE. Pt's abd US showed hepatosplenomegaly, fatty liver, small gallstone, normal kidneys. Pt underwent EGD, Colonoscopy c/w gastritis, colon polyp; GIB is considered to be secondary to hemorrhoidal bleed. Pt to be DC'ed back to Rehab. Condition: Fair - Instructions Diet, Activity, Other Instructions: Resume ADA, low salt, low cholesterol diet. Referrals: Noemy Valle [Primary Care Provider] - Liyah Louise MD [Staff Physician] - (in 1-2 weeks after DC from Rehab) Magdalene Tidwell MD [Staff Physician] - (3 years for follow up colonoscopy) Disposition: [facility] F[facility]ILITY - Home Medications Comprehensive Discharge Medication List: Ambulatory Orders See DC instructions
[2018-10-22 18:39] VITALS: BP 140/51; PULSE 63; TEMP 98.3
--- NOTE | 2018-10-24 11:59 | PATH ---
Surgical Pathology Report Patient Name: NATALIIA MURILLO [facility]. Rec. #: [id number] /Age/Gender: 1950 (Age: 68) / M Account: [id number] Location: [facility] PEDS/ADOL Taken: 10/22/2018 Received: 10/22/2018 Reported: 10/24/2018 Physicians: Elvis Packer M.D. Specimen(s) Received A: BX ANTRUM B: BX TRANSVERSE COLON POLYP Clinical History Anemia, colon cancer screening, rectal bleeding Postoperative diagnosis: Erosive gastritis, hiatal hernia, diverticulosis, polyp Final Diagnosis A. STOMACH, ANTRUM, BIOPSY: GASTRIC ANTRAL MUCOSA WITH MILD CHRONIC GASTRITIS. IMMUNOHISTOCHEMICAL STAIN FOR H. PYLORI IS NEGATIVE. B. TRANSVERSE COLON, POLYP, POLYPECTOMY: TUBULAR ADENOMA. Electronically Signed Cookie De Leon M.D. Gross Description A. Received in formalin, labeled "biopsy antrum" are 2 dey, irregular portions of soft tissue measuring 0.2 and 0.7 cm. in greatest dimension. The specimens are submitted in toto in one cassette. B. Received in formalin, labeled "polyp transverse colon" is a dey, irregular portion of soft tissue measuring 0.4 cm. in greatest dimension. The specimen is submitted in toto in one cassette. 10/22/201810/22/2018
== END 2018-10-22 21:00 | DRG 682 ==
LOC: JER 14:12 → JERBED 17:25 → J4S 10-10 09:30
PROVIDERS: ADMIT Internal Medicine; ATTEND Internal Medicine
PROC: 0DB68ZX Excision of Stomach, Via Natural or Artificial Opening Endoscopic, Diagnostic (ICD-10-PCS; 2018-10-22)
PROC: 0DBL8ZX Excision of Transverse Colon, Via Natural or Artificial Opening Endoscopic, Diagnostic (ICD-10-PCS; principal; 2018-10-22 11:15)
DX: N17.9 Acute kidney failure, unspecified (principal); J96.21 Acute and chronic respiratory failure with hypoxia; J96.22 Acute and chronic respiratory failure with hypercapnia; L03.115 Cellulitis of right lower limb; K62.5 Hemorrhage of anus and rectum; I50.32 Chronic diastolic (congestive) heart failure; Z68.41 Body mass index [BMI] 40.0-44.9, adult; L03.116 Cellulitis of left lower limb; G47.33 Obstructive sleep apnea (adult) (pediatric); D64.9 Anemia, unspecified; R00.1 Bradycardia, unspecified; K57.30 Diverticulosis of large intestine without perforation or abscess without bleeding; K64.8 Other hemorrhoids; K44.9 Diaphragmatic hernia without obstruction or gangrene; K29.50 Unspecified chronic gastritis without bleeding; D36.9 Benign neoplasm, unspecified site; E87.5 Hyperkalemia; K76.0 Fatty (change of) liver, not elsewhere classified; K80.20 Calculus of gallbladder without cholecystitis without obstruction; R16.2 Hepatomegaly with splenomegaly, not elsewhere classified; R94.5 Abnormal results of liver function studies; E11.9 Type 2 diabetes mellitus without complications; E66.01 Morbid (severe) obesity due to excess calories; E86.0 Dehydration
CPT/HCPCS: 36415; 36600; 70450-TC; 71045-TC-FY; 71046-TC-FY; 76700-TC; 80048; 80053; 80074; 80076; 81003; 81015; 82105; 82150; 82172; 82247; 82465; 82550; 82570; 82607; 82728; 82803; 82947; 82962; 82977; 83010; 83516; 83540; 83550; 83605; 83615; 83690; 83735; 83880; 83883; 84100; 84155; 84156; 84157; 84165; 84300; 84439; 84443; 84450; 84460; 84478; 84484; 84540; 85025; 85027; 85044; 85610; 85651; 85730; 86038; 86140; 86850; 86900; 86901; 87040; 87086; 88305-TC; 93005; 93010; 93306-TC; 94640; 94660; 99282-25; 99285-25; J1644; J1756; J7030